=== PATIENT | female | born 1980 | race Caucasian/White ===

== ENCOUNTER 2020-03-27 12:25 | Outpatient (REF) | payer MEDICAID, SELFPAY ==
[2020-03-27 13:29] LABS: MANUAL DIFF FLAG NO
[2020-03-27 13:38] LABS: Basophils Absolute Auto 0.1 X10*3/uL (0.0-0.2); Basophils Percent Auto 0.8 % (0-2); Eosinophils Absolute Auto 0.2 X10*3/uL (0.0-0.4); Hematocrit 42.9 % (37-47); Hemoglobin 13.7 g/dl (12.0-16.0); Imm Gran Abs Auto 0.03 X10*3/uL (0.00-0.03); Imm Gran Pct Auto 0.3 % (0.0-0.4); Lymphocytes Absolute Auto 3.2 X10*3/uL (1.2-4.9); Lymphocytes Percent Auto 31.4 % (20-40); Mean Corpuscular HGB Conc 31.9 g/dl (31.0-35.0); Mean Corpuscular Hemoglobin 26.2 pg (27.0-33.0); Mean Corpuscular Volume 82.2 fL (80-98); Mean Platelet Volume 11.2 fL (9.4-12.3); Monocytes Absolute Auto 0.8 X10*3/uL (0.1-1.2); Monocytes Percent Auto 8.2 % (2-11); Neutrophils Absolute Auto 5.8 X10*3/uL (2.0-8.3); Neutrophils Percent Auto 57.3 % (45-73); Platelet Count 258 X10*3/uL (160-400); Red Blood Count 5.22 X10*6/uL (4.20-5.50); Red Cell Distribution Width 17.5 % (11.0-16.0); White Blood Count 10.1 X10*3/uL (4.8-10.8)
[2020-03-27 13:50] LABS: Anion Gap 11 (12-20); Blood Urea Nitrogen 13 mg/dL (9-16); Calcium 8.4 mg/dL (8.4-10.2); Carbon Dioxide 28 mmol/L (22-29); Chloride 105 mmol/L (96-108); Estimated Glomerular Filt Rate 58; Phosphorus 2.7 mg/dL (2.7-4.5); Potassium 4.3 mmol/l (3.3-5.1); Sodium 140 mmol/L (135-145)
--- NOTE | 2020-03-27 14:05 | CT_ITS ---
EXAMINATION: CT ABDOMEN WITHOUT AND WITH CONTRAST CLINICAL INFORMATION: History of renal malignancy. New onset hematuria. COMPARISON: Previous CT scans December 2018 and October 2013 and abdominal ultrasound September 2019. TECHNIQUE: Contiguous axial thin section helical images of the abdomen were performed before and after the administration of oral contrast and 85 mL of Ultravist 370 intravenous contrast. The data set was reformatted in the coronal and sagittal planes and reviewed on an independent workstation. This CT examination was performed using dose optimization techniques as appropriate, variously including the following: *Automated exposure control *Adjustment of mA and/or kV according to patient size (this includes techniques or standardized protocols for targeted exams where dose is matched to indication/reason for exam; i.e. extremities or head) *Use of iterative reconstruction technique DLP: 918 mGy-cm FINDINGS: LUNG BASES: The lung bases are clear. The heart is slightly enlarged. LIVER, GALLBLADDER, AND BILIARY TREE: The liver is enlarged. The right lobe measures 25 cm in length. The contour of the liver is smooth. No focal liver lesion is seen. The gallbladder is normal. There is no biliary duct dilatation. PANCREAS: Unremarkable. SPLEEN: Unremarkable. ADRENAL GLANDS AND KIDNEYS: The adrenal glands are unremarkable. There is a heterogeneous lesion exophytic to the lower pole of the left kidney. This is irregular in shape. This measures 2.6 x 2.2 cm in transverse and AP dimension and 3.8 cm in longitudinal dimension axial image 36 series 4 and coronal reconstructed image 65. It is heterogeneous in attenuation with some areas of fat. This does not demonstrate enhancement. This is slightly high attenuation to the kidney precontrast Hounsfield units measuring 31. Hounsfield units postcontrast measure 32 without evidence of enhancement. This measured 2.1 x 2.4 cm in AP and transverse dimension axial image 37 series 3, December 2018 exam and 4 cm in length coronal reconstructed image 93, 2018 exam and 2.1 x 2.3 cm in AP and transverse dimension axial image 41 series 2, October 2013 exam and 5 cm in length on earliest exam October 2013. The lesion currently appears to contain less fat than is seen on earliest October 2013 exam. BOWEL LOOPS: Visualized bowel is unremarkable. There is a small peritoneal nodule lateral to the left colon measuring 5 mm axial image 38 series 4 that is stable. The stomach is unremarkable. LYMPH NODES: There are no enlarged lymph nodes. There is no ascites. VASCULAR: Unremarkable. BONES: Unremarkable. IMPRESSION: Slight interval increase in AP and transverse dimension and slight interval decrease in longitudinal dimension in the heterogeneous lesion exophytic to the lower pole of the left kidney going back to 2014. This does not demonstrate evidence of enhancement and contains some fat although the amount of fat appears decreased compared to older exams from 2014. 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 Imaging follow-up in 6-12 months with MRI should be considered. Enlarged liver.
[2020-03-27 14:23] LABS: Glucose Urine UA NEG (NEG); Leukocyte Esterase Urine NEG (NEG); Nitrite Urine NEG (NEG); PH 6.5 (5.0-8.0); Specific Gravity - Urine 1.025 (1.005-1.025); Urine Blood NEG (NEG); Urine Ketones 5 MG/DL (NEG); Urine Protein 3+ MG/DL (NEG-TRACE)
[2020-03-27 14:28] LABS: Appearance Urine HAZY; Color Urine YELLOW
[2020-03-27 14:46] LABS: Mucus Urine 2+ /LPF; Squamous Epithelial Cell Urine 2+ /LPF
[2020-03-27 14:47] LABS: Renal w Reflex-LAB USE ONLY Order Verified
[2020-03-27] MEDS: iohexoL 350 MG/ML 100 ML INFUS..BTL 85 ML IV (14:57)
[2020-03-27 15:45] LABS: Total Protein Urine Random 614 mg/dL (<12)
[2020-03-27 18:25] LABS: Renal w Reflex Lab Use Only Order verified
== END 2020-03-27 12:26 | disposition home or self-care (01) ==
LOC: HO.CT 12:25
PROVIDERS: PCP Nurse Practitioner Family; Visit Provider Internal Medicine Nephrology
DX: N05.9 Unspecified nephritic syndrome with unspecified morphologic changes (principal); I10 Essential (primary) hypertension; R80.9 Proteinuria, unspecified
CPT/HCPCS: 36415; 74170; 80051; 81001; 82310; 82565; 84100; 84156; 84520; 85025; 87086

== ENCOUNTER 2020-03-28 12:12 | Outpatient (REF) | payer MEDICAID, SELFPAY ==
--- NOTE | 2020-03-28 | MM_ITS ---
EXAMINATION: MM DIAGNOSTIC DIGITAL BREAST TOMOSYNTHESIS, BILATERAL CLINICAL INFORMATION: Recall from screening for question of irregular density lower left breast on MLO view and anterior right breast on CC view. Family history breast cancer in mother. Patient BRCA tested negative. COMPARISON: Mammography: 03/13/2020, 01/25/2019 TECHNIQUE: Digital breast tomosynthesis is performed. 2D images are generated from the tomosynthesis. The following views are obtained: Right spot CC, right ML, left spot MLO x2, left ML. FINDINGS: The breasts are heterogeneously dense, which may obscure small masses (ACR BI-RADS breast composition Category c). Additional views left breast show no developing density, persistent asymmetric density, or architectural changes. Additional views right breast show no developing density, or persistent asymmetric density, or architectural changes. Artifactual finding on right at time of recent screening is believed to be to rolled nipple on standard right CC view. Today's CC view obtained with nipple in profile. Results are discussed with the patient at time of visit. IMPRESSION: Additional views bilateral breasts show no suspicious finding. No developing density, asymmetric density, or architectural abnormality. ASSESSMENT: BI-RADS 1: Negative RECOMMENDATION: Routine annual mammography screening. This patient's information was entered into a reminder system with a target due date for their next mammogram.
== END 2020-03-28 12:13 | disposition home or self-care (01) ==
LOC: HO.MAMMO 12:12
PROVIDERS: PCP Nurse Practitioner Family; Visit Provider Nurse Practitioner Family
DX: Z80.3 Family history of malignant neoplasm of breast (principal); R92.2 Inconclusive mammogram
CPT/HCPCS: 78016

== ENCOUNTER → 2020-04-15 08:05 | Outpatient (BNVA) | payer MEDICAID, SELFPAY | PROVIDERS: PCP Nurse Practitioner Family; Visit Provider Surgery | DX: E66.01 Morbid (severe) obesity due to excess calories (principal); Z68.41 Body mass index [BMI] 40.0-44.9, adult; Z71.3 Dietary counseling and surveillance | CPT/HCPCS: 99214 ==

== ENCOUNTER → 2020-05-05 08:02 | Outpatient (BNVA) | payer MEDICAID, SELFPAY | PROVIDERS: PCP Nurse Practitioner Family; Referring Provider Nurse Practitioner Family; Visit Provider Surgery | DX: Z76.89 Persons encountering health services in other specified circumstances (principal) ==

== ENCOUNTER → 2020-05-28 07:46 | Outpatient (BNVA) | payer MEDICAID, SELFPAY | PROVIDERS: PCP Nurse Practitioner Family; Referring Provider Nurse Practitioner Family; Visit Provider Surgery | DX: Z76.89 Persons encountering health services in other specified circumstances (principal) ==

== ENCOUNTER 2020-07-07 16:51 | Outpatient (REF) | payer MEDICAID, SELFPAY | END 2020-07-07 16:52 | disposition home or self-care (01) | LOC: HO.LAB 16:51 | PROVIDERS: Visit Provider Internal Medicine | DX: Z20.822 Contact with and (suspected) exposure to COVID-19 (principal) | CPT/HCPCS: 36415; C9803; U0003 ==

== ENCOUNTER → 2020-07-24 14:44 | Outpatient (BNVA) | payer MEDICAID, SELFPAY | PROVIDERS: PCP Nurse Practitioner Family; Visit Provider Urology ==

== ENCOUNTER 2020-07-29 01:21 | Inpatient (IN) | payer MEDICAID, SELFPAY ==
[2020-07-29] VITALS (14 sets, daily range): BP systolic 117–198; BP diastolic 54–111; PULSE 63–91; RESP 16–24; TEMP 36.2–38; O2SAT 94–98; BMI 43.2
--- NOTE | ~2020-07-29 | CT_ITS ---
EXAMINATION: CT ABDOMEN AND PELVIS WITHOUT CONTRAST CLINICAL INFORMATION: Left flank pain. COMPARISON: 03/27/2020. TECHNIQUE: Contiguous axial thin section helical images of the abdomen and pelvis were performed without oral or IV contrast. The data set was reformatted in the coronal and sagittal planes and reviewed on an independent workstation. DLP: 1028 mGy-cm. FINDINGS: The visualized lung bases are clear. The visualized portions of the heart are unremarkable. The liver is of normal size and attenuation without focal lesions nor intrahepatic biliary ductal dilation. A normal gallbladder is identified. There is no wall thickening or discernible pericholecystic fluid. The spleen, pancreas, adrenal glands are unremarkable. Both kidneys are of normal size and attenuation without hydronephrosis or nephrolithiasis. There is fat stranding noted about the left kidney. Emanating from the lower pole of left kidney, there is an approximately 3.0 cm left lower pole exophytic lesion. There is no abdominal free fluid. There is neither mesenteric nor retroperitoneal lymphadenopathy. Normal unopacified loops of small and large bowel are identified. A normal appendix is identified. There are bilateral adnexal cysts measuring approximately 3.1 cm on the right and 4.8 cm on the left. There is no pelvic free fluid. The urinary bladder is unremarkable. There is neither pelvic nor inguinal lymphadenopathy. Bone windows: Neither sclerotic nor lytic bone lesions are identified. CT/CT abdomen pelvis wo con IMPRESSION: Nonspecific fat stranding identified about the left kidney. The appearance is nonspecific, though could be secondary to a recently passed calculus or inflammation or infection. Bilateral adnexal cysts. Automated exposure control (Care Dose) Adjustment of the mA and/or kv according to patient size (this includes techniques or standardized protocols for targeted exams where dose is matched to indication / reason for exam; i.e. extremities or head).
[2020-07-29 03:18] LABS: Basophils Absolute Auto 0.1 X10*3/uL (0.0-0.2); Basophils Percent Auto 0.2 % (0-2); Eosinophils Percent Auto 0.1 % (0-4); Hematocrit 39.4 % (37-47); Hemoglobin 12.5 g/dl (12.0-16.0); Imm Gran Abs Auto 0.13 X10*3/uL (0.00-0.03); Imm Gran Pct Auto 0.5 % (0.0-0.4); Lymphocytes Absolute Auto 0.7 X10*3/uL (1.2-4.9); MANUAL DIFF FLAG SCAN; Mean Corpuscular HGB Conc 31.7 g/dl (31.0-35.0); Mean Corpuscular Volume 82.1 fL (80-98); Mean Platelet Volume 11.3 fL (9.4-12.3); Monocytes Absolute Auto 1.6 X10*3/uL (0.1-1.2); Monocytes Percent Auto 6.8 % (2-11); Neutrophils Absolute Auto 21.5 X10*3/uL (2.0-8.3); Neutrophils Percent Auto 89.4 % (45-73); Platelet Count 227 X10*3/uL (160-400); Red Cell Distribution Width 17.1 % (11.0-16.0); SCAN SMEAR FLAG 1; White Blood Count 24.1 X10*3/uL (4.8-10.8)
[2020-07-29 03:38] LABS: SLIDE REVIEW VERIFIED
[2020-07-29 03:42] LABS: Alanine Aminotransferase 17 U/L (0-31); Albumin Level 3.7 g/dL (3.5-5.0); Alkaline Phosphatase 81 U/L (39-117); Anion Gap 15 (12-20); Aspartate Amino Transferase 15 U/L (5-31); Bilirubin Total 0.6 mg/dL (0.0-1.0); Blood Urea Nitrogen 13 mg/dL (9-16); Calcium 8.2 mg/dL (8.4-10.2); Carbon Dioxide 23 mmol/L (22-29); Chloride 104 mmol/L (96-108); Estimated Glomerular Filt Rate 53; Glucose Random 104 mg/dL (60-115); Potassium 3.8 mmol/L (3.3-5.1); Sodium 138 mmol/L (135-145); Total Protein 7.3 g/dL (6.5-8.0)
[2020-07-29 04:05] LABS: Glucose Urine UA NEG (NEG); Leukocyte Esterase Urine 2+ (NEG); Nitrite Urine POS (NEG); PH 6.5 (5.0-8.0); UACC Culture Trigger YES; Urine Blood 2+ (NEG); Urine Ketones 5 MG/DL (NEG); Urine Protein 2+ MG/DL (NEG-TRACE)
[2020-07-29 04:06] LABS: Appearance Urine CLEAR; Color Urine DARK YELLOW
[2020-07-29 04:15] LABS: Bacteria Urine 3+ /LPF; Mucus Urine 1+ /LPF; RBC Urine TNTC /HPF (0); Squamous Epithelial Cell Urine TRACE /LPF; WBC Clumps Urine NOTED; WBC Urine TNTC /HPF (0-4)
--- NOTE | 2020-07-29 04:41 | ED_ITS ---
HPI - Abdominal Pain General Chief Complaint: Abdominal Pain Stated Complaint: FLANK PAIN Time Seen by Provider: 07/29/20 04:27 Source: patient Mode of arrival: EMS Limitations: no limitations History of Present Illness HPI narrative: Patient comes to emergency room complaining of left-sided flank pain. Patient states she thinks she is passing kidney stones. Patient has noticed hematuria for the last 2 weeks, flank pain for 4 days. Patient has history of IgA nephropathy, left-sided partial nephrectomy due to renal cell carcinoma, previous kidney stones. Patient also complaining of dysuria. Related Data Home Medications Medication Instructions Recorded Confirmed Black Cohosh Menopause Complex 1 tab PO DAILY 04/11/20 04/11/20 albuterol sulfate [ProAir HFA] 2 puff INHALATION QID PRN 04/11/20 04/11/20 fluticasone propionate [Flonase] 1 spray INTRANASAL BID 04/11/20 04/11/20 fluticasone propionate [Flovent] 2 puff INHALATION BID 04/11/20 04/11/20 hydralazine 50 mg PO BID 04/11/20 04/11/20 hydroxyzine HCl 50 mg PO TID PRN 04/11/20 04/11/20 lisinopril 40 mg PO DAILY 04/11/20 04/11/20 loratadine [Claritin] 10 mg PO DAILY 04/11/20 04/11/20 [id number] 1 cap PO BEDTIME PRN 04/11/20 04/11/20 [Somnicin] metoprolol succinate 150 mg PO DAILY 04/11/20 04/11/20 multivitamin 1 tab PO DAILY 04/11/20 04/11/20 nitroglycerin 0.4 mg SUBLINGUAL Q5M PRN 04/11/20 04/11/20 pantoprazole 40 mg PO DAILY 04/11/20 04/11/20 sertraline 100 mg PO DAILY 04/11/20 04/11/20 trazodone 150 mg PO BEDTIME PRN 04/11/20 04/11/20 verapamil 360 mg PO DAILY 04/11/20 04/11/20 Previous Rx's Medication Instructions Recorded cholecalciferol (vitamin D3) 50 50 mcg PO DAILY #30 cap 05/06/20 mcg (2,000 unit) capsule thiamine HCl (vitamin B1) 50 mg 25 mg PO DAILY #15 tab 05/06/20 tablet Allergies Allergy/AdvReac Type Severity Reaction Status Date / Time pork derived (porcine) Allergy Intermediate HIVES/STOMACH Verified 07/29/20 02: 37 [Pork derived (porcine)] PAIN/THROAT CLOSES ibuprofen [From Motrin] Allergy Mild GI UPSET Verified 07/29/20 02:37 aspirin Allergy Unknown Unknown Verified 07/29/20 02:37 red dye Allergy Unknown Verified 07/29/20 02:37 Motrin Allergy Unknown Unknown Uncoded 07/24/20 14:48 pork Allergy Unknown Unknown Uncoded 07/24/20 14:48 Review of Systems Review of Systems Constitutional : No Weight loss, No Fever, No Chills, No Night Sweats, No Fatigue, No Malaise ENT/Mouth : No Hearing loss, No Ear Pain, No Nasal Congestion, No Sinus Pain, No Hoarseness, No sore throat, No Rhinorrhea, No Swallowing Difficulty Eyes: No Eye Pain, No Swelling, No Redness, No Foreign Body, No Discharge, No Vision Changes Cardiovascular : No Chest Pain, No SOB, No Dyspnea on Exertion, No Orthopnea, No Edema, No Palpitations Respiratory : No Cough, No Sputum, No Wheezing, No Smoke Exposure, No Dyspnea Gastrointestinal : Complaining of Nausea, No Vomiting, No Diarrhea, No Constipation, complaining of suprapubic pain and left-sided flank pain Genitourinary : no irregular bleeding, complaining of dysuria, hesitancy, hematuria Musculoskeletal : No joint pain, No Myalgias, No Joint Swelling Skin : No Skin Lesions, No rash Neuro : No Weakness, No Numbness, No Paresthesias, No Loss of Consciousness, No Dizziness, No Headache Psych : No Anxiety/Panic, No Depression, No SI/HI/AH/VH, No Social Issues, Heme/Lymph: No Bruising, No Bleeding,No Lymphadenopathy Endocrine : No Polyuria, No Polydipsia, No Temperature Intolerance Physical Exam Vital Signs: Vital Signs: Last Vital Signs Temp 99.9 F 07/29/20 03:44 Pulse 71 07/29/20 06:11 Resp 18 07/29/20 06:11 BP 117/54 L 07/29/20 06:11 Pulse Ox 95 07/29/20 06:11 Body Mass Index 43.2 Appearance: Alert. Oriented X3. No acute distress. Eyes: Pupils equal, round and reactive to light. ENT: Pharynx normal. Neck: Normal inspection. Neck supple. No lymph nodes noted. No crepitus CVS: Normal heart rate and rhythm. Pulses normal. Normal S1 and S2 Respiratory: No respiratory distress. Breath sounds normal. No Wheezing. No rales Abdomen: Soft , tender to palpation over the suprapubic area, positive CVA tenderness on the left, No rigidity. No distention. good BS x4 Skin: Skin warm and dry. Normal skin color. Normal skin turgor. Extremities: No lower extremity edema. No lower extremity edema. No Lacerations. No Rash Neuro: Oriented X 3. No motor deficit. No sensory deficit. Moving all exter mities. No slurred speech. Course Course Course Narrative: I discussed the labs and CT scan with the patient, it is possible that she passed a kidney stone. However, it is likely that all her symptoms are likely secondary to pyelonephritis. Sepsis is not suspected at this time. Patient received fluids and IV antibiotics. I discussed the above- mentioned with the patient and the hospitalist Dr. Bishop, patient being admitted for pyelonephritis. MDM - Abdominal Pain Lab Data Result diagrams: 07/29/20 02:57 07/29/20 02:57 Labs: Lab Results 07/29/20 07/29/20 07/29/20 Range/Units 02:57 02:57 02:57 WBC 24.1 H (4.8-10.8) X10*3/uL RBC 4.80 (4.20-5.50) X10*6/uL Hgb 12.5 (12.0-16.0) g/dl Hct 39.4 (37-47) % MCV 82.1 (80-98) fL MCH 26.0 L (27.0-33.0) pg MCHC 31.7 (31.0-35.0) g/dl RDW 17.1 H (11.0-16.0) % Plt Count 227 (160-400) X10*3/uL MPV 11.3 (9.4-12.3) fL Immature Gran % (Auto) 0.5 H (0.0-0.4) % Neut % (Auto) 89.4 H (45-73) % Lymph % (Auto) 3.0 L (20-40) % [place] % (Auto) 6.8 (2-11) % Eos % (Auto) 0.1 (0-4) % Baso % (Auto) 0.2 (0-2) % Lymph # (Auto) 0.7 L (1.2-4.9) X10*3/uL [place] # (Auto) 1.6 H (0.1-1.2) X10*3/uL Eos # (Auto) 0.0 (0.0-0.4) X10*3/uL Baso # (Auto) 0.1 (0.0-0.2) X10*3/uL Abs Immat Gran (auto) 0.13 H (0.00-0.03) X10*3/uL Absolute Neuts (auto) 21.5 H (2.0-8.3) X10*3/uL Absolute Nucleated RBC 0.000 (0.0-0.012) X10*3/uL Nucleated RBC % (auto) 0.0 (0.0-0.2) /100WBC Smear Tech's Comments VERIFIED Hold Blue Top SEE NOTE Sodium 138 (135-145) mmol/L Potassium 3.8 (3.3-5.1) mmol/L Chloride 104 (96-108) mmol/L Carbon Dioxide 23 (22-29) mmol/L Anion Gap 15 (12-20) BUN 13 (9-16) mg/dL Creatinine 1.13 (0.5-1.4) mg/dL Estim Creat Clear Calc 85.0 Estimated GFR 53 Random Glucose 104 (60-115) mg/dL Lactic Acid (0.5-2.0) mmol/L Calcium 8.2 L (8.4-10.2) mg/dL Total Bilirubin 0.6 (0.0-1.0) mg/dL AST 15 (5-31) U/L ALT 17 (0-31) U/L Alkaline Phosphatase 81 (39-117) U/L Total Protein 7.3 (6.5-8.0) g/dL Albumin 3.7 (3.5-5.0) g/dL Urine Color Urine Appearance Urine pH (5.0-8.0) Ur Specific [place] (1.005-1.025) Urine Protein (NEG-TRACE) MG/DL Urine Glucose (UA) (NEG) MG/DL Urine Ketones (NEG) MG/DL Urine Blood (NEG) Urine Nitrite (NEG) Ur Leukocyte Esterase (NEG) Urine RBC (0) /HPF Urine WBC (0-4) /HPF Urine WBC Clumps Ur Squamous Epith Cells /LPF Urine Bacteria /LPF Urine Mucus /LPF 07/29/20 07/29/20 Range/Units 03:57 05:01 WBC (4.8-10.8) X10*3/uL RBC (4.20-5.50) X10*6/uL Hgb (12.0-16.0) g/dl Hct (37-47) % MCV (80-98) fL MCH (27.0-33.0) pg MCHC (31.0-35.0) g/dl RDW (11.0-16.0) % Plt Count (160-400) X10*3/uL MPV (9.4-12.3) fL Immature Gran % (Auto) (0.0-0.4) % Neut % (Auto) (45-73) % Lymph % (Auto) (20-40) % [place] % (Auto) (2-11) % Eos % (Auto) (0-4) % Baso % (Auto) (0-2) % Lymph # (Auto) (1.2-4.9) X10*3/uL [place] # (Auto) (0.1-1.2) X10*3/uL Eos # (Auto) (0.0-0.4) X10*3/uL Baso # (Auto) (0.0-0.2) X10*3/uL Abs Immat Gran (auto) (0.00-0.03) X10*3/uL Absolute Neuts (auto) (2.0-8.3) X10*3/uL Absolute Nucleated RBC (0.0-0.012) X10*3/uL Nucleated RBC % (auto) (0.0-0.2) /100WBC Smear Tech's Comments Hold Blue Top Sodium (135-145) mmol/L Potassium (3.3-5.1) mmol/L Chloride (96-108) mmol/L Carbon Dioxide (22-29) mmol/L Anion Gap (12-20) BUN (9-16) mg/dL Creatinine (0.5-1.4) mg/dL Estim Creat Clear Calc Estimated GFR Random Glucose (60-115) mg/dL Lactic Acid 1.4 (0.5-2.0) mmol/L Calcium (8.4-10.2) mg/dL Total Bilirubin (0.0-1.0) mg/dL AST (5-31) U/L ALT (0-31) U/L Alkaline Phosphatase (39-117) U/L Total Protein (6.5-8.0) g/dL Albumin (3.5-5.0) g/dL Urine Color DARK YELLOW Urine Appearance CLEAR Urine pH 6.5 (5.0-8.0) Ur Specific [place] 1.020 (1.005-1.025) Urine Protein 2+ H (NEG-TRACE) MG/DL Urine Glucose (UA) NEG (NEG) MG/DL Urine Ketones 5 (NEG) MG/DL Urine Blood 2+ H (NEG) Urine Nitrite POS H (NEG) Ur Leukocyte Esterase 2+ H (NEG) Urine RBC TNTC H (0) /HPF Urine WBC TNTC H (0-4) /HPF Urine WBC Clumps NOTED Ur Squamous Epith Cells TRACE /LPF Urine Bacteria 3+ /LPF Urine Mucus 1+ /LPF Imaging Data CT scan - abdomen: Radiologist's impression: FINDINGS: The visualized lung bases are clear. The visualized portions of the heart are unremarkable. The liver is of normal size and attenuation without focal lesions nor intrahepatic biliary ductal dilation. A normal gallbladder is identified. There is no wall thickening or discernible pericholecystic fluid. The spleen, pancreas, adrenal glands are unremarkable. Both kidneys are of normal size and attenuation without hydronephrosis or nephrolithiasis. There is fat stranding noted about the left kidney. Emanating from the lower pole of left kidney, there is an approximately 3.0 cm left lower pole exophytic lesion. There is no abdominal free fluid. There is neither mesenteric nor retroperitoneal lymphadenopathy. Normal unopacified loops of small and large bowel are identified. A normal appendix is identified. There are bilateral adnexal cysts measuring approximately 3.1 cm on the right and 4.8 cm on the left. There is no pelvic free fluid. The urinary bladder is unremarkable. There is neither pelvic nor inguinal lymphadenopathy. Bone windows: Neither sclerotic nor lytic bone lesions are identified. CT/CT abdomen pelvis wo con IMPRESSION: Nonspecific fat stranding identified about the left kidney. The appearance is nonspecific, though could be secondary to a recently passed calculus or inflammation or infection. Bilateral adnexal cysts. Discharge Plan Discharge Clinical Impression: Pyelonephritis Patient Disposition: Admitted As Inpatient [facility] Past Medical History Medical History Asthma Cancer of left kidney Hypertension IgA nephropathy IgA nephropathy Migraine headache Myocardial infarction Surgical History H/O partial nephrectomy H/O right knee surgery H/O: hysterectomy Morbid obesity Family History Family History (Updated 04/11/20 @ 09:13 by Perla Emery RN) Mother IgA nephropathy Breast cancer Cancer of kidney CVA (cerebral vascular accident) Maternal Uncle Tongue cancer Social History Social History Alcohol intake: never Smoking Status: Current some day smoker Use of substances other than those prescribed or required for medical reasons: No Advance Directives: No Advance Directives Information Provided: No
[2020-07-29] MEDS: cefTRIAXone sodium 1 GM in 0.9 % Sodium Chloride 50 ML IV (05:01)
[2020-07-29] MEDS: ondansetron HCL 4 MG/2 ML VIAL IVPUSH (05:03)
[2020-07-29] MEDS: Morphine Sulfate 2 MG/ML CARTRIDGE 4 MG IVPUSH (05:03)
[2020-07-29 05:25] LABS: Lactic Acid 1.4 mmol/L (0.5-2.0)
[2020-07-29] MEDS: Acetaminophen 325 MG TABLET 650 MG PO (06:13)
[2020-07-29] MEDS: 0.9 % Sodium Chloride 1,000 ML 999 ML IVCONT ×2 (06:52→08:02)
--- NOTE | 2020-07-29 11:30 | PM.IMHP ---
History of Present Illness Date of Service: 07/29/20 Chief Complaint: Abdominal pain 40-year-old female who came to the hospital for 2-3 days history of hematuria and flank pain left-sided. She also has history of IgA nephropathy and partial left-sided nephrectomy due to question of renal cell carcinoma. Patient says that since she came here she had some fever and flank pain slowly seems to be improving Denies any nausea vomiting or cough or phlegm or shortness of breath or chest pain. Patient said that she has left renal lesion which she is getting workup out patiently with Dr. valderrama. In the ED patient was found to have fever 100.4, tachycardia, has white count so qualified for sepsis-also UA was abnormal so thought to be patient has pyelonephritis and was given IV ceftriaxone. Patient thinks there is a question of renal stone because she has history? Pmx: Asthma Cancer of left kidney Hypertension IgA nephropathy IgA nephropathy Migraine headache Myocardial infarction Review of Systems Review of Systems: Denies any chest pain or shortness of breath or weakness or numbness or nausea vomiting or diarrhea. Abdominal pain is improving No weakness or numbness Had fever Also has hematuria No muscle pain No renal urea or otorrhea [facility] Medical History Asthma Cancer of left kidney Hypertension IgA nephropathy IgA nephropathy Migraine headache Myocardial infarction Family History Mother IgA nephropathy Breast cancer Cancer of kidney CVA (cerebral vascular accident) Maternal Uncle Tongue cancer Surgical History H/O partial nephrectomy H/O right knee surgery H/O: hysterectomy Morbid obesity Social History Household Members: Family Housing: House Alcohol intake: never Smoking Status: Current some day smoker Packs Per Day: 1 Cigarettes Per Day: 20.0 service: No Current occupational status: employed Meds Allergies Allergy/AdvReac Type Severity Reaction Status Date / Time pork derived (porcine) Allergy Intermediate HIVES/STOMACH Verified 07/29/20 02:37 [Pork derived (porcine)] PAIN/THROAT CLOSES ibuprofen [From Motrin] Allergy Mild GI UPSET Verified 07/29/20 02:37 aspirin Allergy Unknown Unknown Verified 07/29/20 02:37 red dye Allergy Unknown Verified 07/29/20 02:37 Motrin Allergy Unknown Unknown Uncoded 07/24/20 14:48 pork Allergy Unknown Unknown Uncoded 07/24/20 14:48 Home Medications Medication Instructions Recorded Confirmed Type albuterol sulfate [ProAir HFA] 2 puff INHALATION QID PRN 04/11/20 07/29/20 History fluticasone propionate 2 puff INHALATION BID 04/11/20 07/29/20 History fluticasone propionate 2 spray INTRANASAL DAILY 04/11/20 07/29/20 History hydroxyzine HCl 50 mg PO TID PRN 04/11/20 07/29/20 History lisinopril 40 mg PO DAILY 04/11/20 07/29/20 History loratadine [Claritin] 10 mg PO DAILY 04/11/20 07/29/20 History multivitamin 1 tab PO DAILY 04/11/20 07/29/20 History nitroglycerin 0.4 mg SUBLINGUAL Q5M PRN MDD 3 04/11/20 07/29/20 History pantoprazole 40 mg PO DAILY 04/11/20 07/29/20 History sertraline 100 mg PO DAILY 04/11/20 07/29/20 History hydralazine 50 mg PO QPM 07/29/20 07/29/20 History hydralazine 100 mg PO DAILY 07/29/20 07/29/20 History melatonin 12 mg PO BEDTIME 07/29/20 07/29/20 History metoprolol succinate 150 mg PO DAILY 07/29/20 07/29/20 History trazodone 200 mg PO BEDTIME 07/29/20 07/29/20 History verapamil 180 mg PO BID 07/29/20 07/29/20 History Physical Exam Vital Signs and Narrative: Vital Signs: Last Vital Signs Temp 98.9 F 07/29/20 08:00 Pulse 64 07/29/20 08:00 Resp 16 07/29/20 08:00 BP 120/64 07/29/20 08:00 Pulse Ox 95 07/29/20 08:00 Body Mass Index 43.2 Physical exam: Constitutional: Not in acute distress, pleasant. HEENT: Eyes: Anicteric, no discharge Neck supple Cvs: rrr, [id number] , no murmur res: clear to auscultation ,no rhonchii or wheezing abd: no rebound or guarding ,nt, bs present. ext pulses present , no cyanosis neuro: axo3 , nonfocal. Results Labs CBC and Chem 7: 08/01/20 05:52 08/01/20 05:52 Labs: Laboratory Results - last 24 hr 07/29/20 07/29/20 07/29/20 02:57 02:57 02:57 MCV 82.1 MCH 26.0 L MCHC 31.7 RDW 17.1 H Plt Count 227 MPV 11.3 Immature Gran % (Auto) 0.5 H Neut % (Auto) 89.4 H Lymph % (Auto) 3.0 L [place] % (Auto) 6.8 Eos % (Auto) 0.1 Baso % (Auto) 0.2 Lymph # (Auto) 0.7 L [place] # (Auto) 1.6 H Eos # (Auto) 0.0 Baso # (Auto) 0.1 Abs Immat Gran (auto) 0.13 H Absolute Neuts (auto) 21.5 H Absolute Nucleated RBC 0.000 Nucleated RBC % (auto) 0.0 Smear Tech's Comments VERIFIED Hold Blue Top SEE NOTE Anion Gap 15 Estim Creat Clear Calc 85.0 Estimated GFR 53 Random Glucose 104 Lactic Acid Calcium 8.2 L Total Bilirubin 0.6 AST 15 ALT 17 Alkaline Phosphatase 81 Total Protein 7.3 Albumin 3.7 Urine Color Urine Appearance Urine pH Ur Specific [place] Urine Protein Urine Glucose (UA) Urine Ketones Urine Blood Urine Nitrite Ur Leukocyte Esterase Urine RBC Urine WBC Urine WBC Clumps Ur Squamous Epith Cells Urine Bacteria Urine Mucus 07/29/20 07/29/20 03:57 05:01 MCV MCH MCHC RDW Plt Count MPV Immature Gran % (Auto) Neut % (Auto) Lymph % (Auto) [place] % (Auto) Eos % (Auto) Baso % (Auto) Lymph # (Auto) [place] # (Auto) Eos # (Auto) Baso # (Auto) Abs Immat Gran (auto) Absolute Neuts (auto) Absolute Nucleated RBC Nucleated RBC % (auto) Smear Tech's Comments Hold Blue Top Anion Gap Estim Creat Clear Calc Estimated GFR Random Glucose Lactic Acid 1.4 Calcium Total Bilirubin AST ALT Alkaline Phosphatase Total Protein Albumin Urine Color DARK YELLOW Urine Appearance CLEAR Urine pH 6.5 Ur Specific [place] 1.020 Urine Protein 2+ H Urine Glucose (UA) NEG Urine Ketones 5 Urine Blood 2+ H Urine Nitrite POS H Ur Leukocyte Esterase 2+ H Urine RBC TNTC H Urine WBC TNTC H Urine WBC Clumps NOTED Ur Squamous Epith Cells TRACE Urine Bacteria 3+ Urine Mucus 1+ Imaging Radiologist's Impressions: Impressions Abdomen/Pelvis CT 07/29/20 04:38 IMPRESSION: Nonspecific fat stranding identified about the left kidney. The appearance is nonspecific, though could be secondary to a recently passed calculus or inflammation or infection. Bilateral adnexal cysts. Automated exposure control (Care Dose) Adjustment of the mA and/or kv according to patient size (this includes techniques or standardized protocols for targeted exams where dose is matched to indication / reason for exam; i.e. extremities or head). Assessment and Plan (1) Pyelonephritis: Status: Acute 1. Probable sepsis due to pyelonephritis versus renal colic: Patient also has left renal lesion which she is aware about and follows up with Dr. valderrama out patiently Started on IV ceftriaxone Urine and blood culture pending Urology evaluation 2.HTN:Will continue lisinopril,metoprolol, hydralzine , verapamil 3.: Asthma: Will continue home asthma medications, flovent , alsbuterol prn 4. Anxiety/panic: sertraline ,trazodone DVT prophylaxis was heparin or Lovenox can be cannot be used because pork products and patient is allergic to pork she said a DIS anaphylaxis
--- NOTE | 2020-07-29 11:36 | PC.NURSE ---
resting queitly in bed, c/o increasing left flank pain. grimace with deep breath. this rn to request pain meds from MD. pt states morphine was effective. on 2l NC at baseline. skin pwd. Awaits bed on floor.
--- NOTE | 2020-07-29 11:50 | PC.NURSE ---
marcialer text to Dr Arana for consult.
[2020-07-29] MEDS: Morphine Sulfate 2 MG/ML CARTRIDGE 1 MG IVPUSH ×2 (13:28→18:12)
--- NOTE | 2020-07-29 13:51 | PC.NURSE ---
feels better after morphine. trying to sleep. awaits bed upstairs
[2020-07-29 15:10] LABS: COVID-19 Test Negative (Negative)
--- NOTE | 2020-07-29 15:16 | PC.NURSE ---
rn to rn with Prerna
--- NOTE | 2020-07-29 15:48 | MHC.CM.PN ---
CM ATTEMPTED TO MEET WITH PT IN ED HOWEVER PT HAD TRANSFERRED TO [place] [id number], HCP FOUND IN OLD RECORD AND UPLOADED TO [facility], REGISTRATION TO UPLOAD TO [facility].
--- NOTE | 2020-07-29 17:03 | P.CNUR_ITS ---
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 This is under surveillance Appears she may have been admitted for question of pyelonephritis Certainly has UTI and elevated white count Is being managed with ceftriaxone Sensitivities pending Review of Systems Review of Systems: Yes all other systems are reviewed and are negative PMFSH Past Medical History Medical History Asthma Cancer of left kidney Hypertension IgA nephropathy IgA nephropathy Migraine headache Myocardial infarction Family History Family History Mother IgA nephropathy Breast cancer Cancer of kidney CVA (cerebral vascular accident) Maternal Uncle Tongue cancer Surgical History Surgical History H/O partial nephrectomy H/O right knee surgery H/O: hysterectomy Morbid obesity Social History Social History Alcohol intake: never Smoking Status: Current some day smoker Use of substances other than those prescribed or required for medical reasons: No Advance Directives: No Advance Directives Information Provided: No Meds Allergies Allergy/AdvReac Type Severity Reaction Status Date / Time pork derived (porcine) Allergy Intermediate HIVES/STOMACH Verified 07/29/20 02:37 [Pork derived (porcine)] PAIN/THROAT CLOSES ibuprofen [From Motrin] Allergy Mild GI UPSET Verified 07/29/20 02:37 aspirin Allergy Unknown Unknown Verified 07/29/20 02:37 red dye Allergy Unknown Verified 07/29/20 02:37 Motrin Allergy Unknown Unknown Uncoded 07/24/20 14:48 pork Allergy Unknown Unknown Uncoded 07/24/20 14:48 Active Medications: Current Medications Generic Name Dose Route Start Last Admin Trade Name Freq PRN Reason Stop Dose Admin Acetaminophen 650 mg 07/29/20 16:53 Acetaminophen 325 Mg Tablet PO Q6H PRN Pain, Mild (Pain Scale 1-3) Albuterol Sulfate 2 puff 07/29/20 16:01 Albuterol Sulfate 90 Mcg 8 Gm Inhaler INHALE QID PRN Shortness Of Breath Or Wheezing Fluticasone Propionate 2 spray 07/29/20 16:15 Fluticasone Propionate Nasal 16 Gm [place] NOSTRIL-B DAILY [facility] Fluticasone Propionate 2 puff 07/29/20 20:00 Fluticasone Propionate 100 Mcg Blst.W.Dev INHALE RBID [facility] Hydralazine HCl 50 mg 07/29/20 21:00 Hydralazine Hcl 50 Mg Tablet PO BEDTIME [facility] Protocol Hydralazine HCl 100 mg 07/29/20 16:15 Hydralazine Hcl 25 Mg Tablet PO DAILY [facility] Protocol Hydroxyzine HCl 50 mg 07/29/20 16:01 Hydroxyzine Hcl 50 Mg Tablet PO TID PRN Anxiety Ceftriaxone Sodium 1 gm/ 50 mls @ 100 mls/hr 07/30/20 09:00 Sodium Chloride IV DAILY [facility] Lisinopril 40 mg 07/29/20 17:00 Lisinopril 40 Mg Tablet PO DAILY [facility] Protocol Loratadine 10 mg 07/29/20 16:15 Loratadine 10 Mg Tablet PO DAILY [facility] Melatonin 12 mg 07/29/20 21:00 Melatonin 3 Mg Tablet PO BEDTIME [facility] Metoprolol Succinate 150 mg 07/29/20 16:15 Metoprolol Succinate Er 50 Mg Tab.Er.24h PO DAILY [facility] Protocol Morphine Sulfate 1 mg 07/29/20 11:53 07/29/20 13:28 Morphine Sulfate 2 Mg/Ml Cartridge IVPUSH 1 mg Q4H PRN Administration Pain, Mild (Pain Scale 1-3) Multivitamins/Vitamin C 1 tab 07/29/20 16:15 Multivitamin Tablet PO DAILY [facility] Nitroglycerin 0.4 mg 07/29/20 16:01 Nitroglycerin 0.4 Mg Tab.Subl SUBLINGUAL Q5M PRN Chest Pain Omeprazole 20 mg 07/30/20 06:30 Omeprazole 20 Mg Capsule.Dr PO DAILY@0630 [facility] Sertraline HCl 100 mg 07/29/20 16:15 Sertraline Hcl 50 Mg Tablet PO DAILY [facility] Sodium Chloride 3 ml 07/29/20 16:00 0.9 % Sodium Chloride Flush 3 Ml Syringe IVFLUSH QSHIFT [facility] Tamsulosin HCl 0.4 mg 07/30/20 09:00 Tamsulosin Hcl 0.4 Mg Capsule PO DAILY [facility] Trazodone HCl 200 mg 07/29/20 21:00 Trazodone Hcl 100 Mg Tablet PO BEDTIME [facility] Verapamil HCl 180 mg 07/29/20 21:00 Verapamil Hcl Sr 180 Mg Tablet.Er PO BID [facility] Protocol Vitamin D 50 mcg 07/30/20 09:00 Cholecalciferol (Vitamin D3) 25 Mcg Tablet PO DAILY [facility] Home Medications Medication Instructions Recorded Confirmed Last Taken Type albuterol sulfate [ProAir HFA] 2 puff INHALATION QID PRN 04/11/20 07/29/20 Unk nown History fluticasone propionate [Flonase] 2 spray INTRANASAL DAILY 04/11/20 07/29/20 07/28/20 History fluticasone propionate [Flovent] 2 puff INHALATION BID 04/11/20 07/29/20 07/28/20 History hydroxyzine HCl 50 mg PO TID PRN 04/11/20 07/29/20 Unknown History lisinopril 40 mg PO DAILY 04/11/20 07/29/20 07/28/20 History loratadine [Claritin] 10 mg PO DAILY 04/11/20 07/29/20 07/28/20 History multivitamin 1 tab PO DAILY 04/11/20 07/29/20 07/28/20 History nitroglycerin 0.4 mg SUBLINGUAL Q5M PRN MDD 3 04/11/20 07/29/20 Unknown History pantoprazole 40 mg PO DAILY 04/11/20 07/29/20 07/28/20 History sertraline 100 mg PO DAILY 04/11/20 07/29/20 07/28/20 History hydralazine 50 mg PO QPM 07/29/20 07/29/20 07/28/20 History hydralazine 100 mg PO DAILY 07/29/20 07/29/20 07/28/20 History melatonin 12 mg PO BEDTIME 07/29/20 07/29/20 07/28/20 History metoprolol succinate 150 mg PO DAILY 07/29/20 07/29/20 07/28/20 History trazodone 200 mg PO BEDTIME 07/29/20 07/29/20 07/28/20 History verapamil 180 mg PO BID 07/29/20 07/29/20 07/28/20 History Physical Exam Vital Signs: Vital Signs: Last Vital Signs Temp 99.2 F 07/29/20 15:46 Pulse 87 07/29/20 15:46 Resp 20 07/29/20 15:46 BP 198/111 H 07/29/20 15:46 Pulse Ox 98 07/29/20 15:46 Body Mass Index 43.2 Const: General: cooperative, healthy appearing, comfortable and no acute distress Nutritional Appearance: average body habitus Orientation/consciousness: oriented to person, oriented to place and oriented to time Eyes: General: appearance normal, both eyes and all related structures Chest: Chest palpation & inspection: normal inspection of the chest Resp: Effort & Inspection: normal respiratory effort Cardio: Rate: regular rate GI: Inspection: Yes normal to inspection Skin: Hair: normal Neuro: General: oriented to person, oriented to place and oriented to time Extrem: General: Yes normal to inspection Results Labs Result diagrams: 07/29/20 02:57 07/29/20 02:57 Labs: Abnormal lab results 07/29/20 07/29/20 07/29/20 Range/Units 02:57 02:57 03:57 WBC 24.1 H (4.8-10.8) X10*3/uL MCH 26.0 L (27.0-33.0) pg RDW 17.1 H (11.0-16.0) % Immature Gran % (Auto) 0.5 H (0.0-0.4) % Neut % (Auto) 89.4 H (45-73) % Lymph % (Auto) 3.0 L (20-40) % Lymph # (Auto) 0.7 L (1.2-4.9) X10*3/uL [place] # (Auto) 1.6 H (0.1-1.2) X10*3/uL Abs Immat Gran (auto) 0.13 H (0.00-0.03) X10*3/uL Absolute Neuts (auto) 21.5 H (2.0-8.3) X10*3/uL Calcium 8.2 L (8.4-10.2) mg/dL Urine Protein 2+ H (NEG-TRACE) MG/DL Urine Blood 2+ H (NEG) Urine Nitrite POS H (NEG) Ur Leukocyte Esterase 2+ H (NEG) Urine RBC TNTC H (0) /HPF Urine WBC TNTC H (0-4) /HPF Short CBC 07/29/20 Range/Units 02:57 WBC 24.1 H (4.8-10.8) X10*3/uL Hgb 12.5 (12.0-16.0) g/dl Hct 39.4 (37-47) % Plt Count 227 (160-400) X10*3/uL BMP 07/29/20 02:57 Sodium 138 Potassium 3.8 Chloride 104 Carbon Dioxide 23 BUN 13 Creatinine 1.13 Calcium 8.2 L Liver Function 07/29/20 Range/Units 02:57 Total Bilirubin 0.6 (0.0-1.0) mg/dL AST 15 (5-31) U/L ALT 17 (0-31) U/L Alkaline Phosphatase 81 (39-117) U/L Albumin 3.7 (3.5-5.0) g/dL Urine 07/29/20 Range/Units 03:57 Urine Color DARK YELLOW Urine Appearance CLEAR Urine pH 6.5 (5.0-8.0) Ur Specific [place] 1.020 (1.005-1.025) Urine Protein 2+ H (NEG-TRACE) MG/DL Urine Glucose (UA) NEG (NEG) MG/DL All other labs normal. Assessment and Plan (1) Pyelonephritis: Problem details: Pyelonephritis Status: Acute Broad-spectrum antibiotics until culture specificity determined
[2020-07-29] MEDS: Multivitamin TABLET 1 TAB PO (17:09)
[2020-07-29] MEDS: Sertraline HCL 50 MG TABLET 100 MG PO (17:09)
[2020-07-29] MEDS: hydrALAZINE HCl 25 MG TABLET 100 MG PO (17:09)
[2020-07-29] MEDS: Loratadine 10 MG TABLET PO (17:09)
[2020-07-29] MEDS: Metoprolol Succinate ER 50 MG TAB.ER.24H 150 MG PO (17:09)
[2020-07-29] MEDS: 0.9 % Sodium Chloride Flush 3 ML SYRINGE IVFLUSH (17:11)
[2020-07-29] MEDS: Fluticasone Propionate 100 MCG BLST.W.DEV 2 PUFF INHALE (19:43)
[2020-07-29] MEDS: traZODone HCL 100 MG TABLET 200 MG PO (20:48)
[2020-07-29] MEDS: Melatonin 3 MG TABLET 12 MG PO (20:49)
[2020-07-30] VITALS (11 sets, daily range): BP systolic 110–139; BP diastolic 46–76; PULSE 63–75; RESP 16–20; TEMP 36.6–37.9; O2SAT 90–94; BMI 43.2
[2020-07-30] MEDS: Acetaminophen 325 MG TABLET 650 MG PO ×3 (02:00→17:10)
[2020-07-30] MEDS: 0.9 % Sodium Chloride Flush 3 ML SYRINGE IVFLUSH ×3 (02:05→17:10)
[2020-07-30] MEDS: Omeprazole 20 MG CAPSULE.DR PO (05:55)
[2020-07-30 06:24] LABS: Basophils Absolute Auto 0.1 X10*3/uL (0.0-0.2); Basophils Percent Auto 0.3 % (0-2); Eosinophils Absolute Auto 0.1 X10*3/uL (0.0-0.4); Eosinophils Percent Auto 0.4 % (0-4); Hematocrit 35.1 % (37-47); Hemoglobin 10.8 g/dl (12.0-16.0); Imm Gran Pct Auto 0.8 % (0.0-0.4); Lymphocytes Percent Auto 8.5 % (20-40); MANUAL DIFF FLAG SCAN; Mean Corpuscular HGB Conc 30.8 g/dl (31.0-35.0); Mean Corpuscular Hemoglobin 25.9 pg (27.0-33.0); Mean Corpuscular Volume 84.2 fL (80-98); Mean Platelet Volume 11.1 fL (9.4-12.3); Monocytes Absolute Auto 3.2 X10*3/uL (0.1-1.2); Monocytes Percent Auto 13.2 % (2-11); Neutrophils Absolute Auto 18.4 X10*3/uL (2.0-8.3); Neutrophils Percent Auto 76.8 % (45-73); Platelet Count 177 X10*3/uL (160-400); Red Blood Count 4.17 X10*6/uL (4.20-5.50); Red Cell Distribution Width 17.4 % (11.0-16.0); SCAN SMEAR FLAG 1
[2020-07-30 06:52] LABS: Anion Gap 11 (12-20); Blood Urea Nitrogen 22 mg/dL (9-16); Calcium 7.5 mg/dL (8.4-10.2); Carbon Dioxide 27 mmol/L (22-29); Chloride 103 mmol/L (96-108); Estimated Glomerular Filt Rate 29; Glucose Random 91 mg/dL (60-115); Potassium 4.1 mmol/L (3.3-5.1); Sodium 137 mmol/L (135-145)
[2020-07-30 07:39] LABS: SLIDE REVIEW VERIFIED
[2020-07-30] MEDS: Fluticasone Propionate 100 MCG BLST.W.DEV 2 PUFF INHALE ×2 (07:45→20:41)
[2020-07-30] MEDS: Sertraline HCL 50 MG TABLET 100 MG PO (08:31)
[2020-07-30] MEDS: VerapamiL HCL SR 180 MG TABLET.ER PO ×2 (08:32→20:17)
[2020-07-30] MEDS: hydrALAZINE HCl 25 MG TABLET 100 MG PO (08:32)
[2020-07-30] MEDS: Cholecalciferol (Vitamin D3) 25 MCG TABLET 50 MCG PO (08:32)
[2020-07-30] MEDS: Metoprolol Succinate ER 50 MG TAB.ER.24H 150 MG PO (08:32)
[2020-07-30] MEDS: Loratadine 10 MG TABLET PO (08:32)
[2020-07-30] MEDS: Tamsulosin HCL 0.4 MG CAPSULE PO (08:32)
[2020-07-30] MEDS: Multivitamin TABLET 1 TAB PO (08:33)
[2020-07-30] MEDS: cefTRIAXone sodium 1 GM in 0.9 % Sodium Chloride 50 ML IV (08:42)
--- NOTE | 2020-07-30 09:52 | HO.PM.IMPN ---
Subjective Subjective Date of Service: 07/30/20 Interval History: seen and examined this Am rpeorts feeling tired, but much better than yesterday still some flank pain tolerated diet, but some nausea ROS General - no fevers or chills Cardiovascular - no chest pain Respiratory - no shortness of breath or cough Abdominal- no abdominal pain, +nausea, vomiting, diarrhea - flank pain, improved Physical Exam Vital Signs: Vital Signs: Last Vital Signs Temp 98.1 F 07/30/20 08:00 Pulse 75 07/30/20 08:00 Resp 18 07/30/20 08:00 BP 130/60 07/30/20 08:00 Pulse Ox 90 L 07/30/20 08:00 Body Mass Index 43.2 Const: Other: General - no acute distress, appears comfortable Cardiovascular - regular rate and rhythm, S1-S2 Lungs - normal respiratory effort, clear to auscultation bilaterally, no wheezing Abdomen - soft, nontender, no rebound or guarding; mild cva tenderness L Extremities - no edema bilaterally Neuro - awake and alert, no focal deficits Objective Data Current Medications Generic Name Dose Route Start Last Admin Trade Name Freq PRN Reason Stop Dose Admin Acetaminophen 650 mg 07/29/20 16:53 07/30/20 08:31 Acetaminophen 325 Mg Tablet PO 650 mg Q6H PRN Administration Pain, Mild (Pain Scale 1-3) Albuterol Sulfate 2 puff 07/29/20 16:01 Albuterol Sulfate 90 Mcg 8 Gm Inhaler INHALE QID PRN Shortness Of Breath Or Wheezing Fluticasone Propionate 2 spray 07/29/20 16:15 07/30/20 08:33 Fluticasone Propionate Nasal 16 Gm [place] NOSTRIL-B Not Given DAILY [facility] Fluticasone Propionate 2 puff 07/29/20 20:00 07/30/20 07:45 Fluticasone Propionate 100 Mcg Blst.W.Dev INHALE 2 puff RBID [facility] Administration Hydralazine HCl 50 mg 07/29/20 21:00 07/29/20 20:51 Hydralazine Hcl 50 Mg Tablet PO Not Given BEDTIME [facility] Protocol Hydralazine HCl 100 mg 07/29/20 16:15 07/30/20 08:32 Hydralazine Hcl 25 Mg Tablet PO 100 mg DAILY [facility] Administration Protocol Hydroxyzine HCl 50 mg 07/29/20 16:01 Hydroxyzine Hcl 50 Mg Tablet PO TID PRN Anxiety Ceftriaxone Sodium 1 gm/ 50 mls @ 100 mls/hr 07/30/20 09:00 07/30/20 08:42 Sodium Chloride IV 100 mls/hr DAILY [facility] Administration Lactated Ringer's 1,000 mls @ 100 mls/hr 07/30/20 08:00 Lr IVCONT 07/31/20 03:59 .Q10H [facility] Loratadine 10 mg 07/29/20 16:15 07/30/20 08:32 Loratadine 10 Mg Tablet PO 10 mg DAILY [facility] Administration Melatonin 12 mg 07/29/20 21:00 07/29/20 20:49 Melatonin 3 Mg Tablet PO 12 mg BEDTIME [facility] Administration Metoprolol Succinate 150 mg 07/29/20 16:15 07/30/20 08:32 Metoprolol Succinate Er 50 Mg Tab.Er.24h PO 150 mg DAILY [facility] Administration Protocol Morphine Sulfate 1 mg 07/29/20 11:53 07/29/20 18:12 Morphine Sulfate 2 Mg/Ml Cartridge IVPUSH 1 mg Q4H PRN Administration Pain, Mild (Pain Scale 1-3) Multivitamins/Vitamin C 1 tab 07/29/20 16:15 07/30/20 08:33 Multivitamin Tablet PO 1 tab DAILY [facility] Administration Nitroglycerin 0.4 mg 07/29/20 16:01 Nitroglycerin 0.4 Mg Tab.Subl SUBLINGUAL Q5M PRN Chest Pain Omeprazole 20 mg 07/30/20 06:30 07/30/20 05:55 Omeprazole 20 Mg Capsule.Dr PO 20 mg DAILY@0630 [facility] Administration Sertraline HCl 100 mg 07/29/20 16:15 07/30/20 08:31 Sertraline Hcl 50 Mg Tablet PO 100 mg DAILY [facility] Administration Sodium Chloride 3 ml 07/29/20 16:00 07/30/20 08:33 0.9 % Sodium Chloride Flush 3 Ml Syringe IVFLUSH 3 ml QSHIFT [facility] Administration Tamsulosin HCl 0.4 mg 07/30/20 09:00 07/30/20 08:32 Tamsulosin Hcl 0.4 Mg Capsule PO 0.4 mg DAILY [facility] Administration Trazodone HCl 200 mg 07/29/20 21:00 07/29/20 20:48 Trazodone Hcl 100 Mg Tablet PO 200 mg BEDTIME [facility] Administration Verapamil HCl 180 mg 07/29/20 21:00 07/30/20 08:32 Verapamil Hcl Sr 180 Mg Tablet.Er PO 180 mg BID [facility] Administration Protocol Vitamin D 50 mcg 07/30/20 09:00 07/30/20 08:32 Cholecalciferol (Vitamin D3) 25 Mcg Tablet PO 50 mcg DAILY [facility] Administration Labs CBC & Chem 7: 07/30/20 05:55 07/30/20 05:55 Microbiology Microbiology Results: Microbiology 07/29/20 03:57 Blood - Venous Blood Culture - Preliminary No growth after 24 hours. 07/29/20 02:57 Blood - Venous Blood Culture - Preliminary No growth after 24 hours. Assessment and Plan (1) Pyelonephritis: Status: Acute Assessment and Plan: This is a 40 yo F with multiple medical issues including asthma, IgA nephropathy, [place], Migranes who is admitted for: 1. Sepsis secondary to pyelonephritis -- present on admission imporving slowly continue rocephin f/u cultures 2. Microscopic hematuria likely due to infection urology input appreciated 3. ENRIKE start ivf hold DENNY i/o monitor daily lytes 4. HTN continue home meds minus denny DVT pptx, mechanical. Cannot use heparin/lovenox due to documented severe pork allergy
[2020-07-30] MEDS: Lactated Ringers 1,000 ML 100 ML IVCONT (10:48)
[2020-07-30] MEDS: ondansetron HCL 4 MG/2 ML VIAL IVPUSH (12:17)
[2020-07-30] MEDS: Morphine Sulfate 2 MG/ML CARTRIDGE 1 MG IVPUSH (13:48)
--- NOTE | 2020-07-30 14:45 | MHC.CM.PN ---
NURSE PUBLIC SERVICES LIBRARIAN NOTE ELECTRONIC MEDICAL RECORD REVIEQWED ALONG WITH CASE DISCUSSED ON MULIPLE DISCIPLIANRY ROUNDS,PATIENT WILL REMAIN HERE [facility] THE [facility] A FEW M,ORE DAYS TO COMPLETE HER COURSE OF IV ABX
--- NOTE | 2020-07-30 15:55 | MHC.CM.PN ---
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
[2020-07-30] MEDS: Melatonin 3 MG TABLET 12 MG PO (20:15)
[2020-07-30] MEDS: traZODone HCL 100 MG TABLET 200 MG PO (20:15)
[2020-07-30] MEDS: hydrALAZINE HCl 50 MG TABLET PO (20:16)
[2020-07-31] VITALS (13 sets, daily range): BP systolic 119–188; BP diastolic 68–88; PULSE 61–78; RESP 16–18; TEMP 36.1–37.2; O2SAT 90–97
[2020-07-31] MEDS: Morphine Sulfate 2 MG/ML CARTRIDGE 1 MG IVPUSH (00:38)
[2020-07-31] MEDS: Omeprazole 20 MG CAPSULE.DR PO (05:06)
[2020-07-31] MEDS: Acetaminophen 325 MG TABLET 650 MG PO ×3 (05:09→19:48)
[2020-07-31 06:17] LABS: Hematocrit 32.3 % (37-47); Hemoglobin 10.2 g/dl (12.0-16.0); Mean Corpuscular HGB Conc 31.6 g/dl (31.0-35.0); Mean Corpuscular Hemoglobin 26.2 pg (27.0-33.0); Mean Platelet Volume 11.5 fL (9.4-12.3); Platelet Count 174 X10*3/uL (160-400); Red Blood Count 3.89 X10*6/uL (4.20-5.50); Red Cell Distribution Width 17.4 % (11.0-16.0); White Blood Count 19.7 X10*3/uL (4.8-10.8)
[2020-07-31 07:17] LABS: Anion Gap 12 (12-20); Blood Urea Nitrogen 29 mg/dL (9-16); Calcium 7.6 mg/dL (8.4-10.2); Carbon Dioxide 25 mmol/L (22-29); Chloride 102 mmol/L (96-108); Creatinine Clr Calc Pharmacy 44.2; Estimated Glomerular Filt Rate 25; Glucose Random 103 mg/dL (60-115); Potassium 4.1 mmol/L (3.3-5.1); Sodium 135 mmol/L (135-145)
[2020-07-31] MEDS: cefTRIAXone sodium 1 GM in 0.9 % Sodium Chloride 50 ML IV (08:15)
[2020-07-31] MEDS: hydrALAZINE HCl 25 MG TABLET 100 MG PO (08:16)
[2020-07-31] MEDS: Metoprolol Succinate ER 50 MG TAB.ER.24H 150 MG PO (08:17)
[2020-07-31] MEDS: Cholecalciferol (Vitamin D3) 25 MCG TABLET 50 MCG PO (08:17)
[2020-07-31] MEDS: Loratadine 10 MG TABLET PO (08:18)
[2020-07-31] MEDS: VerapamiL HCL SR 180 MG TABLET.ER PO ×2 (08:18→21:40)
[2020-07-31] MEDS: Sertraline HCL 50 MG TABLET 100 MG PO (08:18)
[2020-07-31] MEDS: Tamsulosin HCL 0.4 MG CAPSULE PO (08:19)
[2020-07-31] MEDS: 0.9 % Sodium Chloride Flush 3 ML SYRINGE IVFLUSH ×3 (08:19→21:44)
[2020-07-31] MEDS: Multivitamin TABLET 1 TAB PO (08:19)
[2020-07-31] MEDS: Fluticasone Propionate 100 MCG BLST.W.DEV 2 PUFF INHALE ×2 (08:31→20:16)
--- NOTE | 2020-07-31 11:00 | HO.PM.IMPN ---
Subjective Subjective Date of Service: 07/31/20 Interval History: seen and examined this Am continues to improve daily ROS General - no fevers or chills Cardiovascular - no chest pain Respiratory - no shortness of breath or cough Abdominal- no abdominal pain, +nausea, vomiting, diarrhea - flank pain, improved Physical Exam Vital Signs: Vital Signs: Last Vital Signs Temp 97 F 07/31/20 08:00 Pulse 78 07/31/20 08:33 Resp 16 07/31/20 08:00 BP 142/76 H 07/31/20 08:18 Pulse Ox 94 07/31/20 08:00 Body Mass Index 43.2 Const: Other: General - no acute distress, appears comfortable Cardiovascular - regular rate and rhythm, S1-S2 Lungs - normal respiratory effort, clear to auscultation bilaterally, no wheezing Abdomen - soft, nontender, no rebound or guarding; CVA tenderness improves Extremities - no edema bilaterally Neuro - awake and alert, no focal deficits Objective Data Current Medications Generic Name Dose Route Start Last Admin Trade Name Freq PRN Reason Stop Dose Admin Acetaminophen 650 mg 07/29/20 16:53 07/31/20 05:09 Acetaminophen 325 Mg Tablet PO 650 mg Q6H PRN Administration Pain, Mild (Pain Scale 1-3) Albuterol Sulfate 2 puff 07/29/20 16:01 Albuterol Sulfate 90 Mcg 8 Gm Inhaler INHALE QID PRN Shortness Of Breath Or Wheezing Fluticasone Propionate 2 spray 07/29/20 16:15 07/31/20 08:19 Fluticasone Propionate Nasal 16 Gm [place] NOSTRIL-B Not Given DAILY [facility] Fluticasone Propionate 2 puff 07/29/20 20:00 07/31/20 08:31 Fluticasone Propionate 100 Mcg Blst.W.Dev INHALE 2 puff RBID [facility] Administration Hydralazine HCl 50 mg 07/29/20 21:00 07/30/20 20:16 Hydralazine Hcl 50 Mg Tablet PO 50 mg BEDTIME [facility] Administration Protocol Hydralazine HCl 100 mg 07/29/20 16:15 07/31/20 08:16 Hydralazine Hcl 25 Mg Tablet PO 100 mg DAILY [facility] Administration Protocol Hydroxyzine HCl 50 mg 07/29/20 16:01 Hydroxyzine Hcl 50 Mg Tablet PO TID PRN Anxiety Ceftriaxone Sodium 1 gm/ 50 mls @ 100 mls/hr 07/30/20 09:00 07/31/20 09:54 Sodium Chloride IV Infused DAILY [facility] Infusion Loratadine 10 mg 07/29/20 16:15 07/31/20 08:18 Loratadine 10 Mg Tablet PO 10 mg DAILY [facility] Administration Melatonin 12 mg 07/29/20 21:00 07/30/20 20:15 Melatonin 3 Mg Tablet PO 12 mg BEDTIME [facility] Administration Metoprolol Succinate 150 mg 07/29/20 16:15 07/31/20 08:17 Metoprolol Succinate Er 50 Mg Tab.Er.24h PO 150 mg DAILY [facility] Administration Protocol Morphine Sulfate 1 mg 07/30/20 23:47 07/31/20 00:38 Morphine Sulfate 2 Mg/Ml Cartridge IVPUSH 1 mg Q4H PRN Administration Pain, Severe (Pain Scale 7-10) Multivitamins/Vitamin C 1 tab 07/29/20 16:15 07/31/20 08:19 Multivitamin Tablet PO 1 tab DAILY [facility] Administration Nitroglycerin 0.4 mg 07/29/20 16:01 Nitroglycerin 0.4 Mg Tab.Subl SUBLINGUAL Q5M PRN Chest Pain Omeprazole 20 mg 07/30/20 06:30 07/31/20 05:06 Omeprazole 20 Mg Capsule.Dr PO 20 mg DAILY@0630 [facility] Administration Ondansetron HCl 4 mg 07/30/20 09:53 07/30/20 12:17 Ondansetron Hcl 4 Mg/2 Ml Vial IVPUSH 4 mg Q8H PRN Administration Nausea Sertraline HCl 100 mg 07/29/20 16:15 07/31/20 08:18 Sertraline Hcl 50 Mg Tablet PO 100 mg DAILY [facility] Administration Sodium Chloride 3 ml 07/29/20 16:00 07/31/20 08:19 0.9 % Sodium Chloride Flush 3 Ml Syringe IVFLUSH 3 ml QSHIFT [facility] Administration Tamsulosin HCl 0.4 mg 07/30/20 09:00 07/31/20 08:19 Tamsulosin Hcl 0.4 Mg Capsule PO 0.4 mg DAILY [facility] Administration Trazodone HCl 200 mg 07/29/20 21:00 07/30/20 20:15 Trazodone Hcl 100 Mg Tablet PO 200 mg BEDTIME [facility] Administration Verapamil HCl 180 mg 07/29/20 21:00 07/31/20 08:18 Verapamil Hcl Sr 180 Mg Tablet.Er PO 180 mg BID [facility] Administration Protocol Vitamin D 50 mcg 07/30/20 09:00 07/31/20 08:17 Cholecalciferol (Vitamin D3) 25 Mcg Tablet PO 50 mcg DAILY [facility] Administration Labs CBC & Chem 7: 07/31/20 05:49 07/31/20 05:49 Microbiology Microbiology Results: Microbiology 07/29/20 Unknown Urine clean catch - Clean Catch Midstream Urine Culture - Final Escherichia coli 07/29/20 03:57 Blood - Venous Blood Culture - Preliminary No growth after 48 hours. 07/29/20 02:57 Blood - Venous Blood Culture - Preliminary No growth after 48 hours. Assessment and Plan (1) Pyelonephritis: Status: Acute Assessment and Plan: This is a 40 yo F with multiple medical issues including asthma, IgA nephropathy, [place], Migranes who is admitted for: 1. Sepsis secondary to pyelonephritis -- present on admission; secondary to E. Coli improving slowly - leukocytosis finally improved continue rocephi - day #3 -- play for f/u cultures - E. coli in the urine, blood negative 2. Microscopic hematuria likely due to infection urology input appreciated 3. ENRIKE SCr continues to rise slowly IVF daily chem 4. HTN continue home meds minus william DVT pptx, mechanical. Cannot use heparin/lovenox due to documented severe pork allergy
[2020-07-31] MEDS: Melatonin 3 MG TABLET 12 MG PO (21:37)
[2020-07-31] MEDS: hydrALAZINE HCl 50 MG TABLET PO (21:40)
[2020-07-31] MEDS: traZODone HCL 100 MG TABLET 200 MG PO (21:41)
[2020-08-01 03:17] VITALS: BP 158/96; PULSE 76; RESP 16; TEMP 37.1; O2SAT 94
[2020-08-01] MEDS: Acetaminophen 325 MG TABLET 650 MG PO (03:27)
[2020-08-01] MEDS: Omeprazole 20 MG CAPSULE.DR PO (05:58)
[2020-08-01 06:20] LABS: Hematocrit 31.8 % (37-47); Hemoglobin 10.1 g/dl (12.0-16.0); Mean Corpuscular HGB Conc 31.8 g/dl (31.0-35.0); Mean Corpuscular Hemoglobin 26.2 pg (27.0-33.0); Mean Corpuscular Volume 82.6 fL (80-98); Mean Platelet Volume 11.7 fL (9.4-12.3); Platelet Count 196 X10*3/uL (160-400); Red Blood Count 3.85 X10*6/uL (4.20-5.50); Red Cell Distribution Width 17.2 % (11.0-16.0); White Blood Count 13.9 X10*3/uL (4.8-10.8)
[2020-08-01 06:37] LABS: Anion Gap 11 (12-20); Blood Urea Nitrogen 27 mg/dL (9-16); Calcium 7.9 mg/dL (8.4-10.2); Carbon Dioxide 27 mmol/L (22-29); Chloride 105 mmol/L (96-108); Creatinine Clr Calc Pharmacy 57.8; Estimated Glomerular Filt Rate 34; Glucose Random 107 mg/dL (60-115); Potassium 4.2 mmol/L (3.3-5.1); Sodium 139 mmol/L (135-145)
[2020-08-01 08:00] VITALS: BP 156/94; PULSE 68; RESP 18; TEMP 36.4; O2SAT 94
[2020-08-01] MEDS: Fluticasone Propionate 100 MCG BLST.W.DEV 2 PUFF INHALE (08:28)
[2020-08-01 08:29] VITALS: PULSE 80; O2SAT 96
--- NOTE | 2020-08-01 08:40 | PM.DS ---
DS: Providers Provider Date of Service: 08/01/20 Date of admission: 07/29/20 11:22 Primary care physician: Unknown Physician Consults: 07/29/20 11:23 Consult to Urology Routine Consulting Provider: Yogesh Anthony Reason for consultation: uti/? renal mass/stone Has provider been notified: No DS: Diagnosis Discharge Diagnosis (1) Sepsis: Status: Acute (2) Pyelonephritis: Status: Acute (3) ENRIKE (acute kidney injury): Status: Acute DS: Medications Discharge Medications Home Medications: Home Medications Medication Instructions Recorded Confirmed albuterol sulfate [ProAir HFA] 2 puff INHALATION QID PRN 04/11/20 07/29/20 fluticasone propionate 2 puff INHALATION BID 04/11/20 07/29/20 fluticasone propionate 2 spray INTRANASAL DAILY 04/11/20 07/29/20 hydroxyzine HCl 50 mg PO TID PRN 04/11/20 07/29/20 lisinopril 40 mg PO DAILY 04/11/20 07/29/20 loratadine [Claritin] 10 mg PO DAILY 04/11/20 07/29/20 multivitamin 1 tab PO DAILY 04/11/20 07/29/20 nitroglycerin 0.4 mg SUBLINGUAL Q5M PRN MDD 3 04/11/20 07/29/20 pantoprazole 40 mg PO DAILY 04/11/20 07/29/20 sertraline 100 mg PO DAILY 04/11/20 07/29/20 hydralazine 50 mg PO QPM 07/29/20 07/29/20 hydralazine 100 mg PO DAILY 07/29/20 07/29/20 melatonin 12 mg PO BEDTIME 07/29/20 07/29/20 metoprolol succinate 150 mg PO DAILY 07/29/20 07/29/20 trazodone 200 mg PO BEDTIME 07/29/20 07/29/20 verapamil 180 mg PO BID 07/29/20 07/29/20 Previous Rx's Medication Instructions Recorded cholecalciferol (vitamin D3) 50 50 mcg PO DAILY #30 cap 05/06/20 mcg (2,000 unit) capsule cefuroxime axetil 500 mg PO Q12H #20 tab 08/01/20 DS: Summary Hospital Course Hospital Course: Patient was admitted for sepsis secondary to pyelonephritis. She was treated with empiric IV ceftriaxone which was subsequently tailored to the oral cefuroxime 500 mg twice daily at the time of discharge. Her urine culture result did positive for E coli which was sensitive to ceftriaxone. Blood cultures are negative at the time of discharge. Her hospital course was complicated by acute kidney injury. Fortunately, her serum creatinine is improving. Her lisinopril was held in the hospital and will be held for 1 week. She is to complete a repeat chemistry prior to restarting her lisinopril. Time Spent with Patient Time attestation: Total time spent providing and/or coordinating discharge services: Discharge coordination time: Greater than 30 minutes Physical Exam Vital Signs: Vital Signs: Last Vital Signs Temp 97.6 F 08/01/20 08:00 Pulse 80 08/01/20 08:29 Resp 18 08/01/20 08:00 BP 156/94 H 08/01/20 08:00 Pulse Ox 94 08/01/20 08:00 Body Mass Index 43.2 Const: Other: General - no acute distress, appears comfortable Cardiovascular - regular rate and rhythm, S1-S2 Lungs - normal respiratory effort, clear to auscultation bilaterally, no wheezing Abdomen - soft, nontender, no rebound or guarding; CVA tenderness improves Extremities - no edema bilaterally Neuro - awake and alert, no focal deficits DS: Data Data Completed and Pending Labs on day of discharge: Laboratory Results - last 24 hr 08/01/20 08/01/20 05:52 05:52 WBC 13.9 H RBC 3.85 L Hgb 10.1 L Hct 31.8 L MCV 82.6 MCH 26.2 L MCHC 31.8 RDW 17.2 H Plt Count 196 MPV 11.7 Absolute Nucleated RBC 0.000 Nucleated RBC % (auto) 0.0 Sodium 139 Potassium 4.2 Chloride 105 Carbon Dioxide 27 Anion Gap 11 L BUN 27 H Creatinine 1.66 H Estim Creat Clear Calc 57.8 Estimated GFR 34 Random Glucose 107 Calcium 7.9 L Preliminary micro results at discharge 07/29/20 03:57 Blood Culture - Preliminary Blood - Venous No growth after 48 hours. 07/29/20 02:57 Blood Culture - Preliminary Blood - Venous No growth after 48 hours. Discharge Plan Discharge Patient Disposition: Home, Self-Care Referrals: Yogesh Anthony MD [Physician] - Hector Daley MD [Physician] - (call office next week) Physician,Unknown [Primary Care Provider] - Discharge Medications: New cefuroxime axetil 500 mg tablet 500 mg PO Q12H Qty: 20 RF: 0 Continued cholecalciferol (vitamin D3) [Vitamin D3] 50 mcg (2,000 unit) capsule 50 mcg PO DAILY Qty: 30 RF: 2 hydralazine 50 mg Tablet 100 mg PO DAILY RF: 0 hydralazine 50 mg Tablet 50 mg PO QPM RF: 0 verapamil 180 mg Capsule,Ext Rel. Pellets 24 Hr 180 mg PO BID RF: 0 trazodone 100 mg Tablet 200 mg PO BEDTIME RF: 0 melatonin 3 mg Tablet 12 mg PO BEDTIME RF: 0 metoprolol succinate 100 mg Tablet Extended Release 24 Hr 150 mg PO DAILY RF: 0 multivitamin Tablet 1 tab PO DAILY RF: 0 hydroxyzine HCl 50 mg Tablet 50 mg PO TID PRN (Reason: Anxiety) RF: 0 pantoprazole 40 mg Tablet,Delayed Release (Dr/Ec) 40 mg PO DAILY RF: 0 nitroglycerin 0.4 mg Tablet, Sublingual 0.4 mg SUBLINGUAL Q5M MDD 3 PRN (Reason: Chest Pain) RF: 0 albuterol sulfate [ProAir HFA] 90 mcg/actuation Hfa Aerosol Inhaler 2 puff INHALATION QID PRN (Reason: Shortness Of Breath Or Wheezing) RF: 0 fluticasone propionate 50 mcg/actuation [place],Suspension 2 spray INTRANASAL DAILY RF: 0 sertraline 50 mg Tablet 100 mg PO DAILY RF: 0 loratadine [Claritin] 10 mg Tablet 10 mg PO DAILY RF: 0 fluticasone propionate 110 mcg/actuation Hfa Aerosol Inhaler 2 puff INHALATION BID RF: 0 Held lisinopril 40 mg Tablet 40 mg PO DAILY RF: 0 Hold Instructions: Resume on 08/08/20. Get your blood work checked next week and confirm with kidney doctors before starting Discharge Orders: Discharge Order (Routine); Ordered 08/01/20 Ordered By: Cornell Li Diet: advance to usual diet Activity on Discharge: As tolerated Stand Alone Forms: Patient Portal Discharge page Other Ambulatory Orders: Basic Metabolic Panel (Routine) Timeframe: [id number] Facility: [facility] - Location: Laboratory Ordered By: Cornell Li Visit Report Forms: Patient Portal Discharge page Care Plan Goals: To stay healthy and out of the hospital. Health Concerns: Pyelonephritis Acute Kidney Injury Plan of Treatment: Pyelonephritis - Take 10 days of Cefuroxime (Ceftin) 500mg twice daily. Follow up with Dr. Anthony Acute Kidney Injury - You kidneys are getting better. Do not take Lisinopril (blood pressure medicine) for 1 week. Get blood work checked next week and discuss with your primary care doctor or kidney doctor prior to restarting this medication. Monitor your blood pressure at home.
[2020-08-01] MEDS: cefTRIAXone sodium 1 GM in 0.9 % Sodium Chloride 50 ML IV (08:48)
[2020-08-01] MEDS: Multivitamin TABLET 1 TAB PO (08:49)
[2020-08-01] MEDS: hydrALAZINE HCl 25 MG TABLET 100 MG PO (08:49)
[2020-08-01] MEDS: Sertraline HCL 50 MG TABLET 100 MG PO (08:49)
[2020-08-01] MEDS: VerapamiL HCL SR 180 MG TABLET.ER PO (08:50)
[2020-08-01] MEDS: Metoprolol Succinate ER 50 MG TAB.ER.24H 150 MG PO (08:50)
[2020-08-01] MEDS: Loratadine 10 MG TABLET PO (08:52)
[2020-08-01] MEDS: 0.9 % Sodium Chloride Flush 3 ML SYRINGE IVFLUSH (09:01)
[2020-08-01] MEDS: Cholecalciferol (Vitamin D3) 25 MCG TABLET 50 MCG PO (09:06)
[2020-08-01] MEDS: Tamsulosin HCL 0.4 MG CAPSULE PO (09:06)
== END 2020-08-01 10:07 | disposition home or self-care (01) | DRG 720 ==
LOC: HO.ED 05:57 → HO.EDOVER 11:34 → HO.S3 15:08
PROVIDERS: Physician Assistant; Admitting Provider Internal Medicine; Emergency Provider Emergency Medicine; Visit Provider Family Medicine
DX: A41.9 Sepsis, unspecified organism (principal); N17.9 Acute kidney failure, unspecified; N12 Tubulo-interstitial nephritis, not specified as acute or chronic; J45.909 Unspecified asthma, uncomplicated; I10 Essential (primary) hypertension; D17.71 Benign lipomatous neoplasm of kidney; I25.2 Old myocardial infarction; B96.20 Unspecified Escherichia coli [E. coli] as the cause of diseases classified elsewhere; R31.29 Other microscopic hematuria; F41.9 Anxiety disorder, unspecified; F17.210 Nicotine dependence, cigarettes, uncomplicated; Z20.822 Contact with and (suspected) exposure to COVID-19; Z85.520 Personal history of malignant carcinoid tumor of kidney; Z79.51 Long term (current) use of inhaled steroids; Z88.6 Allergy status to analgesic agent; Z79.899 Other long term (current) drug therapy
CPT/HCPCS: 36415; 74176; 80048; 80053; 81001; 81003; 83605; 85025; 85027; 87040; 87086; 87088; 87186; 87635; 94640; 96361; 96365; 96375; 99284; 99285; J0696; J2270; J2405

== ENCOUNTER 2020-11-10 10:35 | Outpatient (REF) | payer MEDICAID, SELFPAY ==
[2020-11-10 12:39] LABS: Anion Gap 11 (12-20); Blood Urea Nitrogen 12 mg/dL (9-16); Calcium 8.4 mg/dL (8.4-10.2); Carbon Dioxide 26 mmol/L (22-29); Chloride 104 mmol/L (96-108); Estimated Glomerular Filt Rate 53; Potassium 4.2 mmol/L (3.3-5.1); Sodium 137 mmol/L (135-145)
[2020-11-10 12:52] LABS: Creatinine Urine 168.41 mg/dL
[2020-11-10 13:04] LABS: Protein/Creatinine Ratio, Ur 2.33 (<0.2); Total Protein Urine Random 392 mg/dL (<12)
== END 2020-11-10 10:36 | disposition home or self-care (01) ==
LOC: HO.LAB 10:35
PROVIDERS: Absent Provider Internal Medicine Nephrology; PCP Nurse Practitioner Family; Visit Provider Internal Medicine Pulmonary Disease
DX: G47.34 Idiopathic sleep related nonobstructive alveolar hypoventilation (principal); J45.909 Unspecified asthma, uncomplicated; I10 Essential (primary) hypertension; R80.8 Other proteinuria; R31.9 Hematuria, unspecified; N08 Glomerular disorders in diseases classified elsewhere; C64.2 Malignant neoplasm of left kidney, except renal pelvis; F17.200 Nicotine dependence, unspecified, uncomplicated; Z91.09 Other allergy status, other than to drugs and biological substances
CPT/HCPCS: 36415; 80051; 82310; 82565; 84156; 84520; 99212

== ENCOUNTER → 2020-12-26 09:02 | Outpatient (BNVA) | payer MEDICAID, SELFPAY | PROVIDERS: PCP Nurse Practitioner Primary Care; Visit Provider Internal Medicine Pulmonary Disease | DX: J45.909 Unspecified asthma, uncomplicated (principal); G47.34 Idiopathic sleep related nonobstructive alveolar hypoventilation; Z91.09 Other allergy status, other than to drugs and biological substances | CPT/HCPCS: 99212 ==

== ENCOUNTER → 2021-03-10 12:34 | Outpatient (BNVA) | payer MEDICAID, SELFPAY | PROVIDERS: PCP Nurse Practitioner Primary Care; Referring Provider Nurse Practitioner Primary Care; Visit Provider Internal Medicine Cardiovascular Disease | DX: I10 Essential (primary) hypertension (principal) | CPT/HCPCS: 93005; 99212 ==

== ENCOUNTER → 2021-05-06 09:11 | Outpatient (REF) | payer MEDICAID, SELFPAY ==
--- NOTE | 2021-05-06 09:14 | CA_ITS ---
INDICATIONS: ESSENTIAL (PRIMARY) HYPERTENSION: HT: 5'5 WT: 240 BSA: BP: 135/80 EXHAUST TENDER: YR STUDY QUALITY: ECG RHYTHM: CONCLUSION: FINDINGS: M-MODE/2D MEASUREMENTS: LVd: 4.68 LVs: 3.03 IVSd: 1.28 IVSs: LVPWd: 1.35 ASC Aorta: 3.3 RVd: 4.16 AO Root 2.5 LA: 4.5 AV Cusp: LVOT: 2.0 EF% TAPSE: 2.77 OTHER: EFFUSION: THROMBUS: WALL MOTION: RVSP: 62 mmHg Mitral E/A: 141 / 104 =1.4 E Med. 8.59 E. Lat. 7.62 DOPPLER MEASUREMENTS: AORTIC PP mmHg MPG 16 mmHg Velocity: 260 m/s Valve Area: 2.02 TRICUSPID: PP mmHg Velocity: 341 RA Vol. 24.5 IVC: 2.56 LA Vol. 47.7 RVS: 14.6 MTDD
--- NOTE | 2021-05-06 09:14 | CA_ITS ---
Transthoracic Echocardiogram Patient (Last, First, Middle): Caitlyn Hercules V Gender: Female Date of : 1980 Age: 40 Procedure Date: 05/06/2021 Procedure Type: Transthoracic Echocardiogram Location: OP Height: 165.1 cm Weight: 108.86 kg BSA: 2.14 m2 Heart Rate: bpm BP: 135 / 80 mmHg Coffee Grower: SHALA Referring MD: Quoc Patino MD Bottom Turning Lathe Turner: Quoc Patino MD Symptoms: I10 - Essential (primary) hypertension Study Quality: Good ECG Rhythm: Sinus Conclusions: - 1. Normal LV systolic function with mild LVH with pseudonormal filling pattern 2. Moderately dilated left atrium 3. Increased gradient across aortic valve, may suggest increase stroke volume versus early mild aortic stenosis 4. Moderately elevated right ventricular systolic pressure 5. No gross pericardial effusion Findings Left Ventricle Normal left ventricular size and systolic function. There is mildly increased left ventricular wall thickness. The visually estimated ejection fraction is between 60-65%. Spectral Doppler is indicative of a pseudonormal filling pattern. Right Ventricle Normal right ventricular cavity size and systolic function. Atria The left atrium is moderately dilated. There is no evidence of interatrial shunt. The right atrium is normal in size. Aortic Valve The aortic valve was not well visualized. The peak aortic gradient is 27 mmHg.The mean gradient is 16 mmHg. There is trace (trivial) aortic valve regurgitation. Increased gradient across the aortic valve as well as LVOT is most suggestive of high stroke volume. However mild aortic stenosis cannot be entirely ruled out on this study Mitral Valve There is mild posterior mitral leaflet thickening. There is mild mitral valve regurgitation. There is no mitral valve stenosis. Pulmonic Valve The pulmonic valve was not well visualized. Tricuspid Valve Likely normal tricuspid valve structure and function. There is mild tricuspid valve regurgitation. Mildly elevated right atrial pressure. Moderate pulmonary hypertension is present. Great Vessels All visible segments of the aorta are normal in size. The pulmonary artery was not well visualized. Venous The inferior vena cava is mildly dilated and collapses less than 50% with inspiration. Pericardium/Pleural There is no evidence of pericardial effusion. Prior Study Comparison Changes noted compared to prior study dated: 06/27/2019. RV systolic pressure is elevated Measurements 2D Linear Measurements IVSd: 1.28 0.6-0.9/0.6-1.0 cm LVIDd: 4.68 3.9-5.3/4.2-5.9 cm LVIDd Index: 2.19 2.4-3.2/2.2-3.1 cm/m2 LVIDs: 3.03 2.0-3.6 cm LVPWd: 1.35 0.7-1.1 cm Ao Root: 2.50 2.1-3.5 cm LA Diam: 4.50 2.7-3.8/3.0-4.0 cm LAIDs Index: 2.10 1.5-2.3 cm/m2 LV Mass: 299.64 67-162/88-224 g LV Mass Index: 140.02 43-95/49-115 g/m2 LVOT Diam: 2.00 3.0+(-)1.3 cm 2D Systolic Function EF 4C: 68.60 >55% EF 2C: 59.60 >55% EF BiP: 63.70 >55% Mitral Valve MV Pk E: 1.41 MV PK A: 1.04 MV Decel Time: 186.00 E/A: 1.40 E'Lateral: 7.62 E'Medial: 8.59 E/E' Med: 16.40 E/E' Lat: 18.50 PHT: 54.00 MVA PHT: 4.07 Decel [place]: 7.61 Aortic Valve AoV Pk Vinnie: 2.60 AoV Mn Vinnie: 1.88 AoV VTI: 0.48 AoV Pk Grad: 27.00 Aov Mn Grad: 16.00 JERRY Cont.VTI: 2.15 LVOT LVOT Pk Vinnie: 1.67 LVOT Mn Vinnie: 1.20 LVOT VTI: 0.33 LVOT Pk Grad: 11.00 LVOT Mn Grad: 7.00 LVOT Diam: 2.00 LVOT Area: 3.14 Diastolic Function MV Pk E: 1.41 MV Pk A: 1.04 E/A: 1.40 E'Medial: 8.59 E/E' Med: 16.40 E' Laterial: 7.62 E/E' Lat: 18.50 Right Ventricle TAPSE (mm): 2.77 Tricuspid Valve TR Pk Vinnie: 3.41 TR Pk Grad: 47.00 RA Press: 8.00 RVSP: 55.00 Great Vessels Aorta Ao Root-2D: 2.50 2.0-3.7 cm Ao Asc: 3.30 2.1-3.4 cm Ao Arch: 2.50 Updated in Other Vendor System with Status of Final Quoc Patino MD electronically signed on 05/13/2021 8:55:45 AM with status of Final
== END ==
LOC: HO.CARD 09:11
PROVIDERS: Visit Provider Internal Medicine Cardiovascular Disease
DX: I10 Essential (primary) hypertension (principal)
CPT/HCPCS: 93306

== ENCOUNTER 2021-05-08 08:32 | Outpatient (REF) | payer MEDICAID, SELFPAY ==
--- NOTE | ~2021-05-08 | MM_ITS ---
EXAMINATION: MM SCREENING DIGITAL BREAST TOMOSYNTHESIS, BILATERAL CLINICAL INFORMATION: Screening. Asymptomatic. Family history breast cancer, mother. The lifetime risk of breast cancer based on the Tyrer-Cuzick Model is 23%. COMPARISON: Mammography: 03/28/2020, 03/13/2020, 01/25/2019, 01/12/2017, 05/27/2016, 04/17/2016; MRI breasts 02/21/2019 TECHNIQUE: Digital breast tomosynthesis is performed in both the craniocaudal and mediolateral oblique views along with computer-aided detection (CAD). Synthesized 2D images are generated from the tomosynthesis. FINDINGS: The breasts are heterogeneously dense, which may obscure small masses (ACR BI-RADS breast composition Category c). There are no significant masses, abnormal calcifications, or other abnormalities. There is biopsy clip marker again seen posterior upper outer left breast. MM/MM tomosynthesis screening BI IMPRESSION: 1. There are no significant changes from prior study. 2. The lifetime risk of breast cancer based on the Tyrer-Cuzick Model is 23%. Additional annual adjunct screening with breast MRI may be of benefit in women with a risk score of 20% or greater. ASSESSMENT: BI-RADS 1: Negative RECOMMENDATION: Routine annual mammography screening. This patient's information was entered into a reminder system with a target due date for their next mammogram.
== END 2021-05-08 08:33 | disposition home or self-care (01) ==
LOC: HO.MAMMO 08:32
PROVIDERS: Visit Provider Nurse Practitioner Primary Care
DX: Z12.31 Encounter for screening mammogram for malignant neoplasm of breast (principal)
CPT/HCPCS: 77063; 77067

== ENCOUNTER 2021-05-26 08:23 | Outpatient (REF) | payer MEDICAID, SELFPAY ==
[2021-05-26 08:22] LABS: Blood Urea Nitrogen 14 mg/dL (9-16); Estimated Glomerular Filt Rate 51
== END 2021-05-26 08:24 | disposition home or self-care (01) ==
LOC: HO.MRI 08:23
PROVIDERS: Visit Provider Nurse Practitioner Primary Care
DX: Z80.3 Family history of malignant neoplasm of breast (principal)
CPT/HCPCS: 36415; 82565; 84520

== ENCOUNTER 2022-01-13 12:54 | Outpatient (REF) | payer MEDICAID, SELFPAY ==
[2022-01-13 14:13] LABS: Anion Gap 13 (12-20); Blood Urea Nitrogen 11 mg/dL (9-16); Calcium 8.6 mg/dL (8.4-10.2); Carbon Dioxide 26 mmol/L (22-29); Chloride 104 mmol/L (96-108); Estimated Glomerular Filt Rate 51; Potassium 4.1 mmol/L (3.3-5.1); Sodium 139 mmol/L (135-145)
[2022-01-13 15:15] LABS: Creatinine Urine 54.57 mg/dL; Protein/Creatinine Ratio, Ur 3.46 (<0.2); Total Protein Urine Random 189 mg/dL (<12)
== END 2022-01-13 12:55 | disposition home or self-care (01) ==
LOC: HO.LAB 12:54
PROVIDERS: PCP Nurse Practitioner Primary Care; Visit Provider Internal Medicine Nephrology
DX: R31.9 Hematuria, unspecified (principal); R80.8 Other proteinuria; I10 Essential (primary) hypertension
CPT/HCPCS: 36415; 80051; 82310; 82565; 84156; 84520

== ENCOUNTER → 2022-02-17 09:39 | Outpatient (BNVA) | payer MEDICAID, SELFPAY | PROVIDERS: PCP Nurse Practitioner Primary Care; Visit Provider Internal Medicine Pulmonary Disease | DX: J45.40 Moderate persistent asthma, uncomplicated (principal); G47.34 Idiopathic sleep related nonobstructive alveolar hypoventilation; E66.9 Obesity, unspecified; Z91.09 Other allergy status, other than to drugs and biological substances; Z68.41 Body mass index [BMI] 40.0-44.9, adult | CPT/HCPCS: 99212 ==

== ENCOUNTER 2022-05-11 09:35 | Outpatient (REF) | payer MEDICAID, SELFPAY ==
--- NOTE | ~2022-05-11 | MM_ITS ---
EXAMINATION: MM SCREENING DIGITAL BREAST TOMOSYNTHESIS, BILATERAL CLINICAL INFORMATION: Screening. Asymptomatic. The lifetime risk of breast cancer based on the Tyrer-Cuzick Model is 14%. COMPARISON: Mammography: 05/08/2021, 03/28/2020, 03/13/2020, 01/25/2019 TECHNIQUE: Digital breast tomosynthesis is performed in both the craniocaudal and mediolateral oblique views along with computer-aided detection (CAD). Synthesized 2D images are generated from the tomosynthesis. FINDINGS: The breasts are heterogeneously dense, which may obscure small masses (ACR BI-RADS breast composition Category c). There are no significant masses, abnormal calcifications, or other abnormalities. There is biopsy clip marker posterior upper outer left breast. No developing density or interval mass or architectural abnormality. The axilla and skin contours are unremarkable. MM/MM tomosynthesis screening BI IMPRESSION: No mammographic evidence of malignancy. ASSESSMENT: BI-RADS 1: Negative RECOMMENDATION: Routine annual mammography screening. This patient's information was entered into a reminder system with a target due date for their next mammogram.
== END 2022-05-11 09:36 | disposition home or self-care (01) ==
LOC: HO.MAMMO 09:35
PROVIDERS: Visit Provider Nurse Practitioner Primary Care
DX: Z12.31 Encounter for screening mammogram for malignant neoplasm of breast (principal)
CPT/HCPCS: 77063; 77067

== ENCOUNTER → 2022-09-01 08:51 | Outpatient (BNVA) | payer MEDICAID, SELFPAY | PROVIDERS: PCP Nurse Practitioner Primary Care; Visit Provider Internal Medicine Pulmonary Disease | DX: G47.34 Idiopathic sleep related nonobstructive alveolar hypoventilation (principal) | CPT/HCPCS: 94618; 99211 ==

== ENCOUNTER 2022-09-09 10:50 | Outpatient (REF) | payer MEDICAID, SELFPAY ==
[2022-09-09 13:09] LABS: Creatinine Urine 49.94 mg/dL
[2022-09-09 13:42] LABS: Protein/Creatinine Ratio, Ur 4.81 (<0.2); Total Protein Urine Random 240 mg/dL (<12)
== END 2022-09-09 10:51 | disposition home or self-care (01) ==
LOC: HO.LAB 10:50
PROVIDERS: PCP Nurse Practitioner Primary Care; Visit Provider Internal Medicine Nephrology
DX: I10 Essential (primary) hypertension (principal)
CPT/HCPCS: 84156

== ENCOUNTER → 2022-10-21 08:51 | Outpatient (BNVA) | payer MEDICAID, SELFPAY | PROVIDERS: PCP Nurse Practitioner Primary Care; Visit Provider Internal Medicine Pulmonary Disease | DX: J45.909 Unspecified asthma, uncomplicated (principal); G47.34 Idiopathic sleep related nonobstructive alveolar hypoventilation; Z91.09 Other allergy status, other than to drugs and biological substances | CPT/HCPCS: 99212 ==

== ENCOUNTER → 2022-12-10 13:25 | Outpatient (BNVA) | payer MEDICAID, SELFPAY | PROVIDERS: PCP Nurse Practitioner Primary Care; Visit Provider Internal Medicine Pulmonary Disease | DX: J45.909 Unspecified asthma, uncomplicated (principal); G47.34 Idiopathic sleep related nonobstructive alveolar hypoventilation; Z91.09 Other allergy status, other than to drugs and biological substances | CPT/HCPCS: 99212 ==

== ENCOUNTER → 2023-02-23 08:00 | Outpatient (REF) | payer MEDICAID, SELFPAY ==
--- NOTE | 2023-02-23 08:03 | CA_ITS ---
Transthoracic Echocardiogram Patient (Last, First, Middle): Caitlyn Hercules V Gender: Female Date of : 1980 Age: 42 Procedure Date: 02/23/2023 Procedure Type: Transthoracic Echocardiogram Location: OP Height: 165.1 cm Weight: 117.94 kg BSA: 2.21 m2 Heart Rate: bpm BP: 165 / 80 mmHg Bedspread Cutter: Referring MD: Quoc Patino MD Machine Plate Stacker: Quoc Patino MD Symptoms: I10 - Essential (primary) hypertension Study Quality: Adequate ECG Rhythm: Sinus Conclusions: - 1. Normal LV ejection fraction of 60-65% with moderate left ventricular hypertrophy and grade 2 diastolic dysfunction 2. Moderately dilated left atrium 3. Mild aortic regurgitation 4. Xols-if-ugihblov elevation right go systolic pressure mildly elevated right atrial pressures 5. Upper limits of normal ascending aortic size at 3.6 cm 6. No pericardial effusion Findings Left Ventricle Normal left ventricular size and systolic function. There is moderately increased left ventricular wall thickness. The visually estimated ejection fraction is between 60-65%. Spectral Doppler is indicative of a pseudonormal filling pattern. E/E prime ratio is >15, consistent with elevated filling pressures. Evidence suggests grade II (moderate) diastolic dysfunction. Right Ventricle Mildly increased right ventricular cavity size. There is normal right ventricular systolic function. Atria The left atrium is moderately dilated. Interatrial shunt cannot be excluded. The right atrium is likely dilated. Aortic Valve The aortic valve structure and function is likely normal. There is no aortic valve stenosis. There is mild aortic valve regurgitation. Mitral Valve Normal mitral valve structure and function. There is trace mitral valve regurgitation. There is no mitral valve stenosis. Pulmonic Valve The pulmonic valve is likely normal. There is trace pulmonic valve regurgitation. Tricuspid Valve Normal tricuspid valve structure. There is mild tricuspid valve regurgitation. Mildly elevated right atrial pressure. Mild to moderate pulmonary hypertension is present. Great Vessels The pulmonary artery was not well visualized. Venous The inferior vena cava is moderately dilated and collapses greater than 50% with inspiration. Pericardium/Pleural There is no evidence of pericardial effusion. Measurements 2D Linear Measurements IVSd: 1.45 0.6-0.9/0.6-1.0 cm LVIDd: 4.51 3.9-5.3/4.2-5.9 cm LVIDd Index: 2.04 2.4-3.2/2.2-3.1 cm/m2 LVIDs: 2.92 2.0-3.6 cm LVPWd: 1.47 0.7-1.1 cm Ao Root: 2.60 2.1-3.5 cm LA Diam: 4.80 2.7-3.8/3.0-4.0 cm LAIDs Index: 2.17 1.5-2.3 cm/m2 LV Mass: 331.18 67-162/88-224 g LV Mass Index: 149.85 43-95/49-115 g/m2 LVOT Diam: 2.00 3.0+(-)1.3 cm Mitral Valve MV Pk E: 0.86 MV PK A: 0.64 MV Decel Time: 205.00 E/A: 1.30 E'Lateral: 4.35 E'Medial: 5.44 E/E' Med: 15.80 E/E' Lat: 19.70 PHT: 60.00 MVA PHT: 3.67 Decel Teller: 4.18 Aortic Valve AoV Pk Vinnie: 2.14 AoV Mn Vinnie: 1.35 AoV VTI: 0.53 AoV Pk Grad: 18.00 Aov Mn Grad: 9.00 JERRY Cont.VTI: 1.61 LVOT LVOT Pk Vinnie: 1.09 LVOT Mn Vinnie: 0.71 LVOT VTI: 0.27 LVOT Pk Grad: 5.00 LVOT Mn Grad: 2.00 LVOT Diam: 2.00 LVOT Area: 3.14 Diastolic Function MV Pk E: 0.86 MV Pk A: 0.64 E/A: 1.30 E'Medial: 5.44 E/E' Med: 15.80 E' Laterial: 4.35 E/E' Lat: 19.70 Right Ventricle TAPSE (mm): 37.00 TVS' Vinnie: 12.00 Tricuspid Valve TR Pk Vinnie: 3.03 TR Pk Grad: 37.00 RA Press: 8.00 RVSP: 45.00 Great Vessels Aorta Ao Root-2D: 2.60 2.0-3.7 cm Ao Asc: 3.60 2.1-3.4 cm Pulmonary Valve PV Pk Vinnie: 1.28 Peak PV Grad: 7.00 Updated in Other Vendor System with Status of Final Quoc Patino MD electronically signed on 02/23/2023 3:14:42 PM with status of Final
== END ==
LOC: HO.CARD 08:00
PROVIDERS: PCP Nurse Practitioner Primary Care; Visit Provider Internal Medicine Cardiovascular Disease
DX: I26.99 Other pulmonary embolism without acute cor pulmonale (principal); I10 Essential (primary) hypertension; G47.34 Idiopathic sleep related nonobstructive alveolar hypoventilation
CPT/HCPCS: 93306

== ENCOUNTER → 2023-02-23 08:03 | Outpatient (BNV) | payer MEDICAID, SELFPAY | PROVIDERS: PCP Nurse Practitioner Primary Care; Visit Provider Internal Medicine Cardiovascular Disease | DX: I35.1 Nonrheumatic aortic (valve) insufficiency (principal) | CPT/HCPCS: 93306 ==

== ENCOUNTER 2023-03-31 08:53 | Outpatient (AMB) | payer MEDICAID, SELFPAY ==
[2023-03-31 09:15] VITALS: BP 162/80; PULSE 60; BMI 44.5
--- NOTE | 2023-03-31 09:15 | MHC.OFFVIS ---
Intake Vital Signs 03/31/23 09:15 Height 5 ft 5 in Weight 267 lb 10.259 oz BMI 44.5 BP 162/80 H Blood Pressure Location Lt brachial Position Sitting Pulse 60 Intake Visit Reasons: follow up Intake Note: f/u Allergies pork derived (porcine) [Pork derived (porcine)] Allergy (Intermediate, Verified 03/31/23 09:19) HIVES/STOMACH PAIN/THROAT CLOSES ibuprofen [From Motrin] Allergy (Mild, Verified 03/31/23 09:19) GI UPSET aspirin Allergy (Unknown, Verified 03/31/23 09:19) Unknown red dye Allergy (Verified 03/31/23 09:19) Unknown Motrin Allergy (Unknown, Uncoded 09/01/22 09:13) Unknown pork Allergy (Unknown, Uncoded 09/01/22 09:13) Unknown Medication List - Last Reconciled 03/31/23 by OLGA Taylor albuterol sulfate 90 mcg/actuation (ProAir HFA) 2 puffs inhalation QID PRN clonidine HCl 0.1 mg PO BID fluticasone propion-salmeterol 250-50 mcg/dose (Advair Diskus) 1 inh inhalation BID hydroxyzine HCl 50 mg PO TID PRN lisinopril 40 mg PO DAILY loratadine (Claritin) 10 mg PO DAILY melatonin 12 mg PO BEDTIME metoprolol succinate ER 150 mg PO DAILY multivitamin 1 tab PO DAILY nitroglycerin 0.4 mg sublingual Q5M PRN MDD 3 pantoprazole 40 mg PO DAILY sertraline 100 mg PO DAILY trazodone 200 mg PO BEDTIME verapamil ER 180 mg PO BID HPI follow up HPI Details Caitlyn is a 42-year-old female with past medical history of hypertension, smoking, nocturnal hypoxia with home O2 use during sleep, morbid obesity who presents for follow-up. Her last prior visit to our office was 03/10/2021. Today she reports that she has been getting some short pains in her left chest region that can last up to 15 minutes. She has nitroglycerin at home given by another provider which she uses as needed and says that it relieves her discomfort. She has no clear discomfort brought on by exertional activities. She does have some shortness of breath with exertion which she relates to asthma. No palpitations, presyncope, syncope, falls. No PND, orthopnea or edema. 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 She is fatigued this morning as she has not slept yet. She takes her meds as directed. She admits to being mostly sedentary. [facility] Medical History IgA nephropathy Cancer of left kidney Migraine headache Asthma Hypertension Myocardial infarction IgA nephropathy Surgical History Morbid obesity H/O partial nephrectomy H/O right knee surgery H/O: hysterectomy Family History Mother IgA nephropathy Breast cancer Cancer of kidney CVA (cerebral vascular accident) Maternal Uncle Tongue cancer Social History Household Members: Family Housing: House Do you presently have visiting nurse or other home services: No Alcohol intake: never Cigarette Packs Per Day: 1 Cigarettes Per Day: 20.0 service: No Current occupational status: employed Review of Systems Const All systems reviewed & are unremarkable except as noted in HPI and below ENT Denies dizziness Card Reports chest pain, Reports chest pain at rest, Denies chest pain with activity, Denies rapid heart rate, Denies pedal edema, Denies edema, Denies leg edema, Denies lightheadedness, Denies palpitations, Denies dyspnea, Reports dyspnea on exertion and Denies orthopnea Resp Denies cough, Denies dyspnea and Reports dyspnea on exertion GI Denies hematochezia and Denies change in stool character Musc Denies abnormal gait, Denies limited range of motion, Denies muscle cramps, Denies muscle weakness, Denies numbness, Denies radiating pain into limb, Denies stiffness and Denies tingling Neuro Denies abnormal gait, Denies dizziness, Denies numbness and Denies tingling Endo Denies palpitations Physical Exam Vital Signs: Last Vital Signs Pulse 60 03/31/23 09:15 BP 162/80 H 03/31/23 09:15 BMI result Body Mass Index 44.5 Const Other: Morbidly obese General: cooperative, comfortable and no acute distress Orientation/consciousness: patient oriented x3 Neck Neck: Yes normal visual inspection Resp Effort & Inspection: normal respiratory effort Auscultation: clear to auscultation bilaterally, no crackles, no rales, no rhonchi and no wheezes Cardio Jugular venous distension: no JVD Rate: regular rate Rhythm: regular rhythm Heart sounds: S1 normal heart sound present, S2 normal heart sound present, no murmurs and no rubs Neuro General: patient oriented x3 Extrem General: Yes normal to inspection Psych Appearance: grossly normal Mental Status: mental status grossly normal Speech and movement: Normal speech and movement present Office Procedures EKG Details: Today, read by me, normal sinus rhythm, possible left atrial enlargement, LVH, rate 60, QTC 468 millisecond [id number], Complete Assessment & Plan Assessment & Plan (1) Right ventricular dysfunction: Code(s): I51.9 - Heart disease, unspecified Plan: History of morbid obesity and nocturnal hypoxemia leading to increased filling pressures in her heart. Also has history of moderate persistent asthma and smoking. Follows with pulmonology Dr. Trina gibson. Uses O2 1 L during sleep. Echocardiogram done 02/23/2023 shows EF 60-65%, moderate LVH, grade 2 diastolic dysfunction, moderate dilated left atrium, mild aortic regurgitation, RVSP 45 mmHg. Echo from 2020 showed RVSP 55 mmHg. She has no signs of heart failure on examination. Reviewed echo findings with her. Benefit of weight loss reviewed. Increase physical activity as tolerated. Continue with night time O2 use. Blood pressure not optimally controlled. Will add hydralazine 25 mg b.i.d.. She says she was on hydralazine in the past and it made her blood pressure too low. Her dose at that time was 50 mg b.i.d.. Will plan for office visit follow-up in 4-6 weeks to re-evaluate blood pressure, med tolerance. (2) Diastolic dysfunction: Code(s): I51.89 - Other ill-defined heart diseases Plan: Grade 2 diastolic dysfunction on recent echo (3) Chest discomfort: Code(s): R07.89 - Other chest pain Plan: Reports of sharp pains in her left chest region that can last up to 15 minutes. She has taken nitroglycerin with relief. No exertional symptoms. Admits to being mostly sedentary. Cardiac risk factors of hypertension, smoking, morbid obesity, sedentary. Will check a pharmacological nuclear stress test to evaluate for ischemia. She has knee issues and morbid obesity and will be unable to exercise on a treadmill. (4) LVH (left ventricular hypertrophy): Code(s): I51.7 - Cardiomegaly Plan: Moderate LVH on last echo. This is up from mild LVH on echo in 2020. Will work on better blood pressure control (5) Morbid obesity: Code(s): E66.01 - Morbid (severe) obesity due to excess calories Plan: Benefit of weight loss reviewed. She is working on diet control. May benefit from bariatric program referral. (6) Hypertension: Code(s): I10 - Essential (primary) hypertension Qualifiers: Hypertension type: primary hypertension Qualified Code(s): I10 - Essential (primary) hypertension Plan: As above. Not optimally controlled at present. Ordering hydralazine. It does flag that she has a red dye allergy. Spoke with patient's you said she is not allergic to red dyes she is allergic to orange dye. She has taken hydralazine in the past, pink tablets and tolerated them without any allergic reaction. With the orange dyed she has gotten itchy and hives in the past. She will start hydralazine with only half a tablet to see if she has any type of reaction. If she does she will certainly let us know. Emergency care if needed. Orders: Orders NM cardiolite stress test Today E66.01 - Morbid (severe) obesity due to excess calories, I10 - Essential (primary) hypertension, R07.89 - Other chest pain CA lexiscan stress w evan Today E66.01 - Morbid (severe) obesity due to excess calories, I10 - Essential (primary) hypertension, R07.89 - Other chest pain Medications: New hydralazine 25 mg PO BID 30 days 60 tabs 4RF Coding Level of Care Code Est Pt Level 4 (07188) Diagnoses Right ventricular dysfunction I51.9 Diastolic dysfunction I51.89 Chest discomfort R07.89 LVH (left ventricular hypertrophy) I51.7 Morbid obesity E66.01 Primary hypertension I10 Hypertension type: primary hypertension CPT Codes EKG - CPT: [id number], Complete ([id number]) Time Spent (min) 28
== END 2023-03-31 09:54 | disposition home or self-care (01) ==
PROVIDERS: PCP Nurse Practitioner Primary Care; Visit Provider Nurse Practitioner Family
DX: I51.9 Heart disease, unspecified (principal); I51.89 Other ill-defined heart diseases; R07.89 Other chest pain; I51.7 Cardiomegaly; E66.01 Morbid (severe) obesity due to excess calories; I10 Essential (primary) hypertension
CPT/HCPCS: 93010; 99214

== ENCOUNTER → 2023-03-31 08:53 | Outpatient (BNVA) | payer MEDICAID, SELFPAY | PROVIDERS: PCP Nurse Practitioner Primary Care; Visit Provider Nurse Practitioner Family | DX: I11.9 Hypertensive heart disease without heart failure (principal); R07.89 Other chest pain; E66.01 Morbid (severe) obesity due to excess calories; Z68.41 Body mass index [BMI] 40.0-44.9, adult | CPT/HCPCS: 93005; 99212 ==

== ENCOUNTER 2023-04-18 13:14 | Inpatient (IN) | payer MEDICAID, SELFPAY ==
--- NOTE | ~2023-04-18 | CT_ITS ---
EXAMINATION: CT head/brain wo IV con CLINICAL INFORMATION: Reason for Exam intermittent visual loss COMPARISON: None. TECHNIQUE: Contiguous axial imaging was performed from the skull base to vertex without intravenous contrast. Sagittal and coronal reformatted images were obtained. This CT examination was performed using dose optimization techniques as appropriate, variously including the following: * Automated exposure control * Adjustment of mA and/or kV according to patient size (this includes techniques or standardized protocols for targeted exams where dose is matched to indication/reason for exam; i.e. extremities or head) Use of iterative reconstruction technique DLP: 850 mGy-cm FINDINGS: The ventricles and sulci are normal in size and configuration without significant volume loss or hydrocephalus. There is no abnormal attenuation within the brain parenchyma. No territorial loss of paul-white differentiation. No acute intracranial hemorrhage or extra-axial fluid collection. No mass lesion, significant mass effect, or herniation pattern. Bilateral proptosis on the basis of increased intraorbital fat deposition which may be seen in the setting of thyroid eye disease and can be correlated with thyroid function tests. The extraocular muscles are not particularly enlarged. Presumably vascular structure within the intraconal lateral left orbit contacting the inferior rectus muscle along its lateral margin. Mild bilateral maxillary sinus mucosal disease. No mastoid effusion. Osseous structures are intact. CT/CT head/brain wo IV con IMPRESSION: No acute intracranial abnormality. Bilateral proptosis on the basis of increased intraorbital fat deposition which may be seen in the setting of thyroid eye disease and can be correlated with thyroid function tests. The extraocular muscles are not particularly enlarged. Presumably vascular structure within the intraconal lateral left orbit contacting the inferior rectus muscle along its lateral margin.
--- NOTE | ~2023-04-18 | MR_ITS ---
EXAMINATION: MR BRAIN WITHOUT AND WITH CONTRAST CLINICAL INFORMATION: Blurred vision. Papilledema. COMPARISON: None. TECHNIQUE: Multiplanar, multisequence imaging of the brain was performed before and after the intravenous administration of 10 mL of Gadavist. Slightly limited study with motion artifacts. FINDINGS: There is a 1 cm T2 hyperintense focus of signal abnormality in the anterior right frontal periventricular white matter. Nonspecific mild symmetric posterior periventricular white matter signal changes are also noted. There is no abnormal parenchymal or leptomeningeal enhancement. No diffusion abnormalities are identified to suggest an acute infarct. The ventricles are normal in size. No mass effect or midline shift is seen. No extra-axial fluid collections are seen. The brainstem and cerebellum are normal. The gradient refocused acquisition demonstrates no pathologic magnetic susceptibility artifact to indicate underlying acute or chronic blood products. The craniovertebral junction and midline structures are normal. The marrow is diffusely somewhat low in signal on T1-weighted imaging. The major intracranial flow voids at the level of the [place] are preserved. The dural venous sinus flow voids are maintained. Mild amount of fluid noted in the dependent mastoid air cells. There is mild mucosal thickening in the maxillary and ethmoid sinuses. MR/MR head/brain wo/w con IMPRESSION: Slightly limited exam with motion artifacts. Nonspecific 1 cm discrete focus of nonenhancing signal in the right frontal periventricular white matter with additional fairly symmetric mild signal changes in the posterior periventricular white matter of both hemispheres. No abnormal enhancement. No acute process. Generalized signal abnormality within the bone marrow. This finding is nonspecific and possible etiologies include stimulated red marrow, as can be seen with smoking, iron deficiency, and chronic infection. Recommend correlation with clinical history and consider a CBC analysis for further workup.
--- NOTE | ~2023-04-18 | FL_ITS ---
Fluoroscopic lumbar puncture Indication: Increased intraorbital pressure. Of note, patient unable to lay prone for the examination/procedure. Risks and benefits and possible complications were discussed with the patient and the consent form was signed. Patient was placed prone on the fluoroscopy table. The back was prepped and draped in routine sterile fashion. Betadine was used as a skin antiseptic. Utilizing fluoroscopic guidance, the L3-4 level was accessed with a 22 gauge Sprotte spinal needle via the interlaminar space, and clear CSF fluid passively obtained at the needle hub. Opening pressure was 32 cm H2O, However this was obtained with the patient in the lateral position and is likely not entirely accurate. 11 cc of fluid was passively obtained and sent for analysis. Closing pressure was 18 cm H2O. The needle was removed without immediate complications. Total fluoroscopy time: 1.2 min FL/FL guided lumbar puncture LP Impression: 1. Successful Fluoroscopic lumbar puncture. Removal of 11 mL clear CSF. 2. Elevated opening pressure 32 cm H2O, although obtained with patient in lateral position secondary to habitus. This could be falsely elevated. 3. Closing pressure 18 cm H2O, also obtained lateral. This procedure was performed by Edi Lloyd PA-C and supervised by Dr. Patel.
[2023-04-18 13:28] VITALS: BP 190/92; PULSE 53; RESP 20; O2SAT 97; BMI 43.9
--- NOTE | 2023-04-18 13:28 | ED.GENADULT ---
HPI - General Adult General Chief complaint: Eye Problems Stated complaint: HBP/L eye vision loss Time Seen by Provider: 04/18/23 14:23 Source: patient Mode of arrival: ambulatory History of Present Illness HPI narrative: 42-year-old female who presents with known uncontrolled hypertension currently on 4 medications, she went to the customer service representative teller today after year of intermittent vision loss, customer service representative teller reports that patient has extensive hypertensive retinopathy and referred the patient to the emergency room without any deficits at the time of referral for MRI and MRV. At this time patient denies any visual loss, has no speech difficulties and otherwise no shortness of breath/ chest pain / palpitations. Related Data Home Medications Medication Instructions Recorded Confirmed albuterol sulfate 90 mcg/actuation 2 puff inhalation QID PRN 04/11/20 03/31/23 aerosol inhaler (ProAir HFA) Shortness Of Breath Or Wheezing hydroxyzine HCl 50 mg tablet 50 mg PO TID PRN Anxiety 04/11/20 03/31/23 loratadine 10 mg tablet (Claritin) 10 mg PO DAILY 04/11/20 03/31/23 multivitamin 1 tab PO DAILY 04/11/20 03/31/23 nitroglycerin 0.4 mg sublingual 0.4 mg sublingual Q5M PRN Chest 04/11/20 03/31/23 tablet Pain pantoprazole 40 mg tablet,delayed 40 mg PO DAILY 04/11/20 03/31/23 release sertraline 50 mg tablet 100 mg PO DAILY 04/11/20 03/31/23 melatonin 3 mg tablet 12 mg PO BEDTIME 07/29/20 03/31/23 metoprolol succinate 100 mg 150 mg PO DAILY 07/29/20 03/31/23 tablet,extended release 24 hr trazodone 100 mg tablet 200 mg PO BEDTIME 07/29/20 03/31/23 verapamil 180 mg 24 hr 180 mg PO BID 07/29/20 03/31/23 capsule,extended release clonidine HCl 0.1 mg tablet 0.1 mg PO BID 03/31/23 03/31/23 atorvastatin 20 mg tablet 20 mg PO QAM 04/18/23 04/18/23 lisinopril 10 mg tablet 20 mg PO DAILY 04/18/23 04/18/23 nicotine (polacrilex) 2 mg gum 2 mg PO NEEDED 04/18/23 04/18/23 Previous Rx's Medication Instructions Recorded fluticasone 250 mcg-salmeterol 50 1 inh inhalation BID #60 ea 10/21/22 mcg/dose blistr powdr for inhalation (Advair Diskus) hydralazine 25 mg tablet 25 mg PO BID 30 days #60 tabs 03/31/23 Allergies Allergy/AdvReac Type Severity Reaction Status Date / Time pork derived (porcine) Allergy Intermediate HIVES/STOMACH Verified 03/31/23 09:19 [Pork derived (porcine)] PAIN/THROAT CLOSES ibuprofen [From Motrin] Allergy Mild GI UPSET Verified 03/31/23 09:19 aspirin Allergy Unknown Unknown Verified 03/31/23 09:19 red dye Allergy Unknown Verified 03/31/23 09:19 Motrin Allergy Unknown Unknown Uncoded 09/01/22 09:13 pork Allergy Unknown Unknown Uncoded 09/01/22 09:13 Review of Systems Review of Systems: Pertinent positives and negatives as stated in HPI [facility] Past Medical History Source: nursing notes reviewed Medical History IgA nephropathy Cancer of left kidney Migraine headache Asthma Hypertension Myocardial infarction IgA nephropathy Surgical History Morbid obesity H/O partial nephrectomy H/O right knee surgery H/O: hysterectomy Family History Family History Mother IgA nephropathy Breast cancer Cancer of kidney CVA (cerebral vascular accident) Maternal Uncle Tongue cancer Social History Social History Household Members: Family Housing: House Do you presently have visiting nurse or other home services: No Alcohol intake: never Cigarette Packs Per Day: 1 Cigarettes Per Day: 20.0 Advance Directives: No Advance Directives Information Provided: Yes service: No Current occupational status: employed Physical Exam ED Vital Signs: Vital Signs - 24 hr 04/18/23 13:28 04/18/23 14:32 04/18/23 14:32 Temperature 98.2 F Pulse Rate 53 58 62 Respiratory Rate 20 16 14 Blood Pressure 190/92 H 157/77 H 155/76 H Pulse Oximetry 97 95 96 Oxygen Delivery Method Room Air Room Air Room Air 04/18/23 17:04 Temperature Pulse Rate 60 Respiratory Rate 18 Blood Pressure 193/101 H Pulse Oximetry 95 Oxygen Delivery Method Room Air BMI result Body Mass Index 43.9 VITAL SIGNS: Reviewed. GENERAL: Elevated BMI,Well developed, well nourished, in no acute distress. HEAD: Normocephalic/atraumatic EYES: PERRLA, EOMI EARS: Ext canals without abnormality NOSE: Nares patent bilateral OROPHARYNX: no oral lesions noted, posterior pharynx clear NECK: Supple, no adenopathy LUNGS: Normal breath sounds. No adventitious sounds or accessory muscle use. SpO2<96> CARDIOVASCULAR: Regular rate and rhythm without noted murmurs ABDOMEN: Soft, non-tender, non-distended with bowel sounds. MUSCULOSKELETAL: No tenderness, deformities, or effusions noted on gross inspection. EXTREMITIES: No cyanosis, clubbing or edema. SKIN: Inspection of the skin reveals no rashes NEUROLOGIC: Alert and oriented x 4. Strength and sensation to light touch were grossly intact x 4, no facial asymmetry, no pronator drift, cranial nerves 2-12 are grossly intact.. Course Course Course Narrative: This is an RME: Additional HPI, ROS, PE not included below will be deferred to primary provider. This is a 17-[id number]-female, with a hx of hypertension, asthma, IgA nephropathy, migraine, and MS, presenting to the emergency department with complaints of right eye blurred vision x 1 year. Eye physician was evaluating patient today, saw that the retinal nerves were swollen , her concern was that something else was going on and was told to come to the emergency department. She had an eye MRI, did not bring the report here today. BP elevated at 190/92. Headache and lightheadedness since eye exam, unsure if this is due to the eye exam. Plan: Labs, UA Medical Decision Making Medical Decision Making MDM Narrative: 42-year-old female with history and clinical presentation consistent with long-standing uncontrolled hypertension and chronic/intermittent vision loss of the left eye. Patient is completely asymptomatic for vision at this time and otherwise nonfocal. blood pressure on each upper extremity is symmetric. I reviewed all investigations hematologic indices negative for leukocytosis or left shift, no anemia or thrombocytopenia. Chemistry indices negative for ENRIKE and there is no electrolyte or liver enzyme abnormalities. 1725: I discussed the case with Dr Hidalgo who recommends noncontrast head CT, LP with opening pressure, MRI/ MRV tomorrow and admission. Signed out to Dr Beckwith Differential Diagnosis Differential Diagnoses: The differential diagnosis associated with the presentation includes Please see the discussion above Admission/Observation Consideration of admission/observation: Escalation of care including admission/observation considered please see the discussion above Lab Data MDM Lab Attestation statement: I reviewed the patient's lab results. Please see the discussion above 04/18/23 14:12 04/18/23 14:12 Labs: Lab Results 04/18/23 Range/Units 14:12 WBC 10.5 (4.8-10.8) X10*3/uL RBC 4.97 (4.20-5.50) X10*6/uL Hgb 13.3 (12.0-16.0) g/dl Hct 42.1 (37.0-47.0) % MCV 84.7 (80.0-98.0) fL MCH 26.8 L (27.0-33.0) pg MCHC 31.6 (31.0-35.0) g/dl RDW 17.0 H (11.0-16.0) % Plt Count 298 (160-400) X10*3/uL MPV 10.9 (9.4-12.3) fL Immature Gran % (Auto) 0.2 (0.0-0.4) % Neut % (Auto) 61.6 (45-73) % Lymph % (Auto) 28.1 (20-40) % [place] % (Auto) 8.0 (2-11) % Eos % (Auto) 1.2 (0-4) % Baso % (Auto) 0.9 (0-2) % Lymph # (Auto) 2.9 (1.2-4.9) X10*3/uL [place] # (Auto) 0.8 (0.1-1.2) X10*3/uL Eos # (Auto) 0.1 (0.0-0.4) X10*3/uL Baso # (Auto) 0.1 (0.0-0.2) X10*3/uL Abs Immat Gran (auto) 0.02 (0.00-0.03) X10*3/uL Absolute Neuts (auto) 6.4 (2.0-8.3) x10*3/uL Absolute Nucleated RBC 0.000 (0.0-0.012) X10*3/uL Nucleated RBC % (auto) 0.0 (0.0-0.2) /100WBC Sodium 141 (135-145) mmol/L Potassium 3.9 (3.3-5.1) mmol/L Chloride 102 (96-108) mmol/L Carbon Dioxide 28 (22-29) mmol/L Anion Gap 15 (12-20) BUN 12 (9-16) mg/dL Creatinine 1.23 (0.5-1.4) mg/dL Estim Creat Clear Calc 77.2 Estimated GFR 48 Random Glucose 144 H (60-115) mg/dL Calcium 9.3 D (8.4-10.2) mg/dL Total Bilirubin 0.4 (0.0-1.0) mg/dL Direct Bilirubin 0.1 (0.0-0.5) mg/dL AST 20 (5-31) U/L ALT 19 (0-31) U/L Alkaline Phosphatase 78 (39-117) U/L Total Protein 8.1 H (6.5-8.0) g/dL Albumin 3.9 (3.5-5.0) g/dL External Record Review External record reviewed: Outpatient record and Prior outpatient labs Chronic Conditions Patient?s care impacted by: Hypertension Discharge Plan Discharge Clinical Impression: Uncontrolled hypertension, Changes in vision Patient Disposition: Admitted As Inpatient Prescriptions: No Action verapamil 180 mg Capsule,Ext Rel. Pellets 24 Hr 180 mg PO BID trazodone 100 mg Tablet 200 mg PO BEDTIME melatonin 3 mg Tablet 12 mg PO BEDTIME metoprolol succinate 100 mg Tablet Extended Release 24 Hr 150 mg PO DAILY multivitamin Tablet 1 tab PO DAILY hydroxyzine HCl 50 mg Tablet 50 mg PO TID PRN (Reason: Anxiety) pantoprazole 40 mg Tablet,Delayed Release (Dr/Ec) 40 mg PO DAILY nitroglycerin 0.4 mg Tablet, Sublingual 0.4 mg SUBLINGUAL Q5M MDD 3 PRN (Reason: Chest Pain) albuterol sulfate [ProAir HFA] 90 mcg/actuation Hfa Aerosol Inhaler 2 puff INHALATION QID PRN (Reason: Shortness Of Breath Or Wheezing) lisinopril 40 mg Tablet 40 mg PO DAILY Hold Instructions: Resume on 08/08/20. Get your blood work checked next week and confirm with kidney doctors before starting sertraline 50 mg Tablet 100 mg PO DAILY loratadine [Claritin] 10 mg Tablet 10 mg PO DAILY fluticasone propion-salmeterol [Advair Diskus] 250-50 mcg/dose blister with device 1 inh inhalation BID Qty: 60 6RF clonidine HCl 0.1 mg tablet 0.1 mg PO BID hydralazine 25 mg tablet 25 mg PO BID 30 Days Qty: 60 4RF
[2023-04-18 14:18] LABS: Basophils Absolute Auto 0.1 X10*3/uL (0.0-0.2); Basophils Percent Auto 0.9 % (0-2); Eosinophils Absolute Auto 0.1 X10*3/uL (0.0-0.4); Eosinophils Percent Auto 1.2 % (0-4); Hematocrit 42.1 % (37.0-47.0); Hemoglobin 13.3 g/dl (12.0-16.0); Imm Gran Abs Auto 0.02 X10*3/uL (0.00-0.03); Imm Gran Pct Auto 0.2 % (0.0-0.4); Lymphocytes Absolute Auto 2.9 X10*3/uL (1.2-4.9); Lymphocytes Percent Auto 28.1 % (20-40); MANUAL DIFF FLAG NO; Mean Corpuscular HGB Conc 31.6 g/dl (31.0-35.0); Mean Corpuscular Hemoglobin 26.8 pg (27.0-33.0); Mean Corpuscular Volume 84.7 fL (80.0-98.0); Mean Platelet Volume 10.9 fL (9.4-12.3); Monocytes Absolute Auto 0.8 X10*3/uL (0.1-1.2); Neutrophils Absolute Auto 6.4 x10*3/uL (2.0-8.3); Neutrophils Percent Auto 61.6 % (45-73); Platelet Count 298 X10*3/uL (160-400); Red Blood Count 4.97 X10*6/uL (4.20-5.50); White Blood Count 10.5 X10*3/uL (4.8-10.8)
[2023-04-18 14:32] VITALS: BP 155/76; BP 157/77; PULSE 58; PULSE 62; RESP 14; RESP 16; TEMP 36.8; O2SAT 95; O2SAT 96
[2023-04-18 14:44] LABS: Alanine Aminotransferase 19 U/L (0-31); Albumin Level 3.9 g/dL (3.5-5.0); Alkaline Phosphatase 78 U/L (39-117); Anion Gap 15 (12-20); Aspartate Amino Transferase 20 U/L (5-31); Bilirubin Direct 0.1 mg/dL (0.0-0.5); Bilirubin Total 0.4 mg/dL (0.0-1.0); Blood Urea Nitrogen 12 mg/dL (9-16); Calcium 9.3 mg/dL (8.4-10.2); Carbon Dioxide 28 mmol/L (22-29); Chloride 102 mmol/L (96-108); Creatinine Clr Calc Pharmacy 77.2; Estimated Glomerular Filt Rate 48; Glucose Random 144 mg/dL (60-115); Potassium 3.9 mmol/L (3.3-5.1); Sodium 141 mmol/L (135-145); Total Protein 8.1 g/dL (6.5-8.0)
--- NOTE | 2023-04-18 14:47 | PC.NURSE ---
patient is resting on stretcher comfortably, offers no complaints at this time, respirations even and unlabored. Endorses mild headache, some blurry vision and some light sensitivity. Pts vision is otherwise well, able to see both up close and far away with no issue at this time. MD aware of patients mildly elevated blood pressure.
[2023-04-18 17:04] VITALS: BP 193/101; PULSE 60; RESP 18; O2SAT 95
[2023-04-18 17:20] LABS: Thyroid Stimulating Hormone 0.65 uIU/mL (0.32-4.0)
[2023-04-18 17:34] VITALS: BP 190/90; PULSE 60; RESP 16; TEMP 36.7; O2SAT 95
--- NOTE | 2023-04-18 17:41 | PHA.MEDREC ---
Pharmacy Consult ? Medication Reconciliation Pharmacy has completed the medication reconciliation. Patient confirmed medicaitons. Reported verapamil as twice a day. Reports usually taking 2 tablet of trazodone but sometimes 1 tablet. Patient prescription for metoprolol ER 100 mg tablet is 1.5 tab however patient reports she only takes 1 tab instead. Haven Lord, PharmD
[2023-04-18 18:02] LABS: Erythrocyte Sedimentation Rate 17 MM/HR (0-20)
[2023-04-18 19:31] VITALS: BP 201/99; PULSE 65; RESP 14; TEMP 36.9; O2SAT 95
[2023-04-18 19:47] LABS: Appearance Urine Cloudy; Color Urine Yellow; Glucose Urine UA Negative (Negative); Leukocyte Esterase Urine Negative (Negative); Nitrite Urine Negative (Negative); PH 6.5 (5.0-9.0); UMIC TRIGGER UACC YES; Urine Blood Negative (Negative); Urine Ketones Negative (Negative); Urine Protein 300 (3+) mg/dL (Neg-Trace)
[2023-04-18 19:50] LABS: Bacteria Urine 2+ (None Seen); RBC Urine 0-2 /HPF (0-2); WBC Urine 0-5 /HPF (0-5)
[2023-04-18] MEDS: cloNIDine HCL 0.1 MG TABLET PO (22:14)
[2023-04-18] MEDS: traZODone HCL 100 MG TABLET 200 MG PO (22:14)
[2023-04-18] MEDS: Metoprolol Succinate ER 100 MG TAB.ER.24H PO (22:14)
[2023-04-18] MEDS: hydrALAZINE HCl 25 MG TABLET PO (22:14)
[2023-04-18] MEDS: hydrOXYzine HCL 50 MG TABLET PO (22:14)
[2023-04-18 22:18] VITALS: BP 169/76; PULSE 65; RESP 18; TEMP 36.8; O2SAT 92
[2023-04-18] MEDS: VerapamiL HCL SR 180 MG TABLET.ER PO (22:50)
--- NOTE | 2023-04-18 23:30 | PM.IMHP ---
History of Present Illness Date of Service: 04/18/23 Chief Complaint: blurry vision, high BP A 42 years old lady with CKD3, HTN, depression, GERD who presented to ED as referral from Opthalmology for eval of blurry vision and reported vision loss. The patient denies complete loss of vision at any point but reports having episodes of blurry vision that lasts up to 30 minutes on occasion or a feeling like a cloud infront of her eyes. these symptoms associated with headache most times. she was by dr Hidalgo once before and diagnosed with migraine. Opth today did eye exam and reported Papilloedema so he asked her to get further evaluation and brain images like MRI\MRV. Her blood pressure was found elevated as well with SBP up to 200s. improved with her home medications but remains elevated. she reports episodes of low blood pressure at home and she also misses taking her meds on occasions. No chest pain, palpitations, SOB, nausea, vomiting, diarrhea or urinary symptoms. vision is normal at time of interview and she reports that last time she had similar event was 2 days prior to presentation today. Review of Systems Review of Systems: No fever, chills or weakness No chest pain, palpitation No shortness of breath or coughing No abdominal pain, nausea or vomiting No urinary symptoms No any rash or wounds [facility] Medical History IgA nephropathy Cancer of left kidney Migraine headache Asthma Hypertension Myocardial infarction IgA nephropathy Family History Mother IgA nephropathy Breast cancer Cancer of kidney CVA (cerebral vascular accident) Maternal Uncle Tongue cancer Surgical History Morbid obesity H/O partial nephrectomy H/O right knee surgery H/O: hysterectomy Social History Household Members: Family Housing: House Do you presently have visiting nurse or other home services: No Alcohol intake: never Cigarette Packs Per Day: 1 Cigarettes Per Day: 20.0 Smoked in Last 30 Days: No Use of substances other than those prescribed or required for medical reasons: No Advance Directives: No Advance Directives Information Provided: Yes service: No Current occupational status: employed Meds Allergies Allergy/AdvReac Type Severity Reaction Status Date / Time pork derived (porcine) Allergy Intermediate HIVES/STOMACH Verified 03/31/23 09:19 [Pork derived (porcine)] PAIN/THROAT CLOSES ibuprofen [From Motrin] Allergy Mild GI UPSET Verified 03/31/23 09:19 aspirin Allergy Unknown Unknown Verified 03/31/23 09:19 red dye Allergy Unknown Verified 03/31/23 09:19 Motrin Allergy Unknown Unknown Uncoded 09/01/22 09:13 pork Allergy Unknown Unknown Uncoded 09/01/22 09:13 Active Medications: Current Medications Albuterol Sulfate (Albuterol Sulfate 90 Mcg 8 Gm Inhaler) 2 puff INHALE QID PRN PRN Reason: Shortness Of Breath Or Wheezing Atorvastatin Calcium (Atorvastatin Calcium 20 Mg Tablet) 20 mg PO DAILY [facility] Clonidine HCl (Clonidine Hcl 0.1 Mg Tablet) 0.1 mg PO BID [facility]; Protocol Last Admin: 04/18/23 22:14 Dose: 0.1 mg Hydralazine HCl (Hydralazine Hcl 25 Mg Tablet) 25 mg PO BID OLINDA; Protocol Last Admin: 04/18/23 22:14 Dose: 25 mg Hydroxyzine HCl (Hydroxyzine Hcl 50 Mg Tablet) 50 mg PO BID [facility] Last Admin: 04/18/23 22:14 Dose: 50 mg Lisinopril (Lisinopril 20 Mg Tablet) 20 mg PO DAILY [facility]; Protocol Melatonin (Melatonin 3 Mg Tablet) 6 mg PO BEDTIME PRN PRN Reason: Insomnia Metoprolol Succinate (Metoprolol Succinate Er 100 Mg Tab.Er.24h) 100 mg PO BEDTIME OLINDA; Protocol Last Admin: 04/18/23 22:14 Dose: 100 mg Nicotine Polacrilex (Nicotine Polacrilex 2 Mg Gum) 2 mg BUCCAL Q2H PRN PRN Reason: Nicotine Cravings Omeprazole (Omeprazole 20 Mg Capsule.Dr) 20 mg PO DAILY@0630 [facility] Sertraline HCl (Sertraline Hcl 100 Mg Tablet) 100 mg PO DAILY [facility] Trazodone HCl (Trazodone Hcl 100 Mg Tablet) 200 mg PO BEDTIME OLINDA Last Admin: 04/18/23 22:14 Dose: 200 mg Verapamil HCl (Verapamil Hcl Sr 180 Mg Tablet.Er) 180 mg PO BID OLINDA; Protocol Last Admin: 04/18/23 22:50 Dose: 180 mg Home Medications Medication Instructions Recorded Confirmed Last Taken Type albuterol sulfate 90 mcg/actuation 2 puff inhalation QID PRN 04/11/20 04/18/23 Unknown History aerosol inhaler (ProAir HFA) Shortness Of Breath Or Wheezing hydroxyzine HCl 50 mg tablet 50 mg PO BID Anxiety 04/11/20 04/18/23 04/18/23 History loratadine 10 mg tablet (Claritin) 10 mg PO DAILY 04/11/20 04/18/23 04/18/23 History nitroglycerin 0.4 mg sublingual 0.4 mg sublingual Q5M PRN Chest 04/11/20 04/18/23 Unknown History tablet Pain pantoprazole 40 mg tablet,delayed 40 mg PO DAILY 04/11/20 04/18/23 04/18/23 History release sertraline 50 mg tablet 100 mg PO DAILY 04/11/20 04/18/23 04/18/23 History metoprolol succinate 100 mg 100 mg PO BEDTIME 07/29/20 04/18/23 04/17/23 History tablet,extended release 24 hr trazodone 100 mg tablet 100 - 200 mg PO BEDTIME 07/29/20 04/18/23 04/17/23 History verapamil 180 mg 24 hr 180 mg PO BID 07/29/20 04/18/23 04/18/23 History capsule,extended release clonidine HCl 0.1 mg tablet 0.1 mg PO BID 03/31/23 04/18/23 04/18/23 History atorvastatin 20 mg tablet 20 mg PO QAM 04/18/23 04/18/23 04/18/23 History lisinopril 10 mg tablet 20 mg PO DAILY 04/18/23 04/18/23 04/18/23 History melatonin 5 mg tablet 5 mg PO BEDTIME PRN Insomnia 04/18/23 04/18/23 Unknown History nicotine (polacrilex) 2 mg gum 2 mg PO NEEDED 04/18/23 04/18/23 Unknown History omega 3-iwn-pvo-fish oil 1,000 mg 1 cap PO DAILY 04/18/23 04/18/23 04/18/23 History (120 mg-180 mg) capsule (Fish Oil) Physical Exam Vital Signs and Narrative: Vital Signs: Last Vital Signs Temp 98.2 F 04/18/23 22:18 Pulse 65 04/18/23 22:18 Resp 18 04/18/23 22:18 BP 169/76 H 04/18/23 22:18 Pulse Ox 92 04/18/23 22:18 O2 Del Method Room Air 04/18/23 22:18 BMI result Body Mass Index 43.9 Const: Other: Constitutional : Awake, interactive, morbidly obese, not in distress Neck : Normal inspection, Supple Cardiovascular : RRR, no JVP, no lower extremity edema Respiratory : good bilateral air entry, no crackles, wheezes or rhonchi Gastrointestinal: soft, lax, Normal bowel sounds, Non tender Skin : Warm, Dry Neurological : Alert & oriented x3, No focal deficit , CN 2-12 within normal Results Labs 04/18/23 14:12 04/18/23 14:12 Labs: Laboratory Results - last 24 hr 04/18/23 04/18/23 14:12 19:37 MCV 84.7 MCH 26.8 L MCHC 31.6 RDW 17.0 H Plt Count 298 MPV 10.9 Immature Gran % (Auto) 0.2 Neut % (Auto) 61.6 Lymph % (Auto) 28.1 [place] % (Auto) 8.0 Eos % (Auto) 1.2 Baso % (Auto) 0.9 Lymph # (Auto) 2.9 [place] # (Auto) 0.8 Eos # (Auto) 0.1 Baso # (Auto) 0.1 Abs Immat Gran (auto) 0.02 Absolute Neuts (auto) 6.4 Absolute Nucleated RBC 0.000 Nucleated RBC % (auto) 0.0 ESR 17 Anion Gap 15 Estim Creat Clear Calc 77.2 Estimated GFR 48 Random Glucose 144 H Calcium 9.3 D Total Bilirubin 0.4 Direct Bilirubin 0.1 AST 20 ALT 19 Alkaline Phosphatase 78 Total Protein 8.1 H Albumin 3.9 TSH 0.65 Urine Color Yellow Urine Appearance Cloudy Urine pH 6.5 Ur Specific [place] 1.020 Urine Protein 300 (3+) H Urine Glucose (UA) Negative Urine Ketones Negative Urine Blood Negative Urine Nitrite Negative Ur Leukocyte Esterase Negative Urine RBC 0-2 Urine WBC 0-5 Ur Squamous Epith Cells 11-20 Urine Bacteria 2+ Hyaline Casts 3-5 Imaging Radiologist's Impressions: Impressions Head CT 10/30/23 18:04 IMPRESSION: No acute intracranial abnormality. Bilateral proptosis on the basis of increased intraorbital fat deposition which may be seen in the setting of thyroid eye disease and can be correlated with thyroid function tests. The extraocular muscles are not particularly enlarged. Presumably vascular structure within the intraconal lateral left orbit contacting the inferior rectus muscle along its lateral margin. Assessment and Plan (1) Changes in vision: Status: Acute (2) Uncontrolled hypertension: Status: Acute Plan A 42 years old lady with CKD3, HTN, depression, GERD who presented to ED as referral from Opthalmology for eval of blurry vision and reported vision loss. Papilloedema records in her file. Head CT negative for any acute findings will get neurology evaluation MRI ordered Temporary blurry vision could be related to migraine, Pseudotumer cerebri Neuro to eval, IR to do LP if needed to confirm Neurochecks HTN urgency Improved with PO meds follow BP Hydralazine, Verapamil, Lisinopril and Clonidine. can increase as tolerated HLD Statin DVT PPx Lovenox Time Spent With Patient Time: Total time managing care of this patient today ____ minutes. Quality Stroke Does the patient have a stroke diagnosis?: No VTE Prior VTE?: No VTE Risk Level:: Medical - moderate - high VTE Device Contraindication: Treatment Not Indicated VTE Drug Contraindication: N/A - Med Ordered
--- NOTE | 2023-04-18 23:37 | PC.NURSE ---
Pt alert and oriented, calm and cooperative and in no acute distress. Vitals- temp 98.2, pulse 65, bp 169/76 (107), o2- 92%. PT placed on 2L NC. PT reports she used 2l at bedtime at home. Medications administered as per AUG. PT placed on conveyor monitor as it was not in place during this RNs assessment. PT requested and provided tonya crackers and saltines. Bed locked in lowest position, Call rodríguez within reach. Plan of care ongoing.
[2023-04-19] VITALS (10 sets, daily range): BP systolic 110–191; BP diastolic 68–104; PULSE 50–74; RESP 16–20; TEMP 36.1–37.1; O2SAT 93–98; BMI 44.6
--- NOTE | 2023-04-19 04:56 | PC.NURSE ---
Patient belonging completed. Medications placed in sealed envelope. Paperwork signed by patient and this RN. Report given to accepting unit. PT transferred by clinical technologist
[2023-04-19] MEDS: Omeprazole 20 MG CAPSULE.DR PO (05:30)
[2023-04-19] MEDS: Acetaminophen 325 MG TABLET 650 MG PO ×2 (08:04→19:57)
[2023-04-19] MEDS: Enoxaparin Sodium 40 MG/0.4 ML SYRINGE SUBCUT (08:33)
[2023-04-19] MEDS: cloNIDine HCL 0.1 MG TABLET PO ×2 (08:34→19:56)
[2023-04-19] MEDS: Loratadine 10 MG TABLET PO (08:34)
[2023-04-19] MEDS: VerapamiL HCL SR 180 MG TABLET.ER PO ×2 (08:34→19:56)
[2023-04-19] MEDS: hydrOXYzine HCL 50 MG TABLET PO ×2 (08:35→19:57)
[2023-04-19] MEDS: Sertraline HCL 100 MG TABLET PO (08:35)
[2023-04-19] MEDS: lisinopriL 20 MG TABLET PO (08:35)
[2023-04-19] MEDS: Atorvastatin Calcium 20 MG TABLET PO (08:36)
[2023-04-19] MEDS: hydrALAZINE HCl 25 MG TABLET PO ×2 (08:36→20:00)
--- NOTE | 2023-04-19 08:47 | MHC.CM.PN ---
CM met with Patient at bedside and addressed DUPONT with her, providing Patient with the original and placing a copy on the chart. Patient lives in a townhouse with her /HCP, adult Daughter and 1 month old Granddaughter and she is functionally independent and working. Home/self care is the goal and CM has initiated and will follow for dc planning. PCP is Dr. Niki Allen.
--- NOTE | 2023-04-19 10:08 | MHC.CM.PN ---
Per RN/UR/CM, Patient has been switched from OBSERVATION to INPATIENT.
--- NOTE | 2023-04-19 10:34 | P.CNNE_ITS ---
History of Present Illness Data of Consult Service Date: 04/19/23 Primary Care Provider: Niki Allen NP HPI Reason for consult: Blurred vision 2-3X/ wk for 6 months and headache This is a 42 years old woman with CKD3, HTN, depression, GERD who was referred to the ER from Opthalmology for eval of blurry vision and reported vision loss. She reports having episodes of blurry vision that lasts up to 30 minutes , currently occurring every other day frequently not with headaches with a cloud in front of her eyes, on eor both , occasionally also associated with headache. She was by Dr Hidalgo once before and diagnosed with migraine. Opththalmology did eye exam and reported papilledema so he asked her to get further evaluation and brain images. Review of Systems 2 Review of Systems: No fever, chills or weakness No chest pain, palpitation No shortness of breath or coughing No abdominal pain, nausea or vomiting No urinary symptoms No any rash or wounds PMFSH Past Medical History Medical History IgA nephropathy Cancer of left kidney Migraine headache Asthma Hypertension Myocardial infarction IgA nephropathy Family History Family History Mother IgA nephropathy Breast cancer Cancer of kidney CVA (cerebral vascular accident) Maternal Uncle Tongue cancer Surgical History Surgical History Morbid obesity H/O partial nephrectomy H/O right knee surgery H/O: hysterectomy Social History Social History Household Members: Family Housing: House Do you presently have visiting nurse or other home services: No Alcohol intake: never Cigarette Packs Per Day: 1 Cigarettes Per Day: 20.0 Smoked in Last 30 Days: No Use of substances other than those prescribed or required for medical reasons: No Advance Directives: No Advance Directives Information Provided: Yes service: No Current occupational status: employed Meds Allergies Allergy/AdvReac Type Severity Reaction Status Date / Time pork derived (porcine) Allergy Intermediate HIVES/STOMACH Verified 03/31/23 09:19 [Pork derived (porcine)] PAIN/THROAT CLOSES ibuprofen [From Motrin] Allergy Mild GI UPSET Verified 03/31/23 09:19 aspirin Allergy Unknown Unknown Verified 03/31/23 09:19 red dye Allergy Unknown Verified 03/31/23 09:19 Motrin Allergy Unknown Unknown Uncoded 09/01/22 09:13 pork Allergy Unknown Unknown Uncoded 09/01/22 09:13 Active Medications: Current Medications Acetaminophen (Acetaminophen 325 Mg Tablet) 650 mg PO Q6H PRN PRN Reason: Pain, Mild (Pain Scale 1-3) Last Admin: 04/19/23 08:04 Dose: 650 mg Albuterol Sulfate (Albuterol Sulfate 90 Mcg 8 Gm Inhaler) 2 puff INHALE QID PRN PRN Reason: Shortness Of Breath Or Wheezing Atorvastatin Calcium (Atorvastatin Calcium 20 Mg Tablet) 20 mg PO DAILY [facility] Last Admin: 04/19/23 08:36 Dose: 20 mg Clonidine HCl (Clonidine Hcl 0.1 Mg Tablet) 0.1 mg PO BID [facility]; Protocol Last Admin: 04/19/23 08:34 Dose: 0.1 mg Enoxaparin Sodium (Enoxaparin Sodium 40 Mg/0.4 Ml Syringe) 40 mg SUBCUT Q24H [facility] Last Admin: 04/19/23 08:33 Dose: 40 mg Fluticasone/Vilanterol (Fluticasone/Vilanterol 100/25 Blst.W.Dev) 1 puff INHALE DAILY [facility] Hydralazine HCl (Hydralazine Hcl 25 Mg Tablet) 25 mg PO BID [facility]; Protocol Last Admin: 04/19/23 08:36 Dose: 25 mg Hydroxyzine HCl (Hydroxyzine Hcl 50 Mg Tablet) 50 mg PO BID [facility] Last Admin: 04/19/23 08:35 Dose: 50 mg Lisinopril (Lisinopril 20 Mg Tablet) 20 mg PO DAILY [facility]; Protocol Last Admin: 04/19/23 08:35 Dose: 20 mg Loratadine (Loratadine 10 Mg Tablet) 10 mg PO DAILY [facility] Last Admin: 04/19/23 08:34 Dose: 10 mg Melatonin (Melatonin 3 Mg Tablet) 6 mg PO BEDTIME PRN PRN Reason: Insomnia Metoprolol Succinate (Metoprolol Succinate Er 100 Mg Tab.Er.24h) 100 mg PO BEDTIME [facility]; Protocol Last Admin: 04/18/23 22:14 Dose: 100 mg Nicotine Polacrilex (Nicotine Polacrilex 2 Mg Gum) 2 mg BUCCAL Q2H PRN PRN Reason: Nicotine Cravings Nitroglycerin (Nitroglycerin 0.4 Mg Tab.Subl) 0.4 mg SUBLINGUAL Q5M PRN PRN Reason: Chest Pain Omeprazole (Omeprazole 20 Mg Capsule.Dr) 20 mg PO DAILY@0630 [facility] Last Admin: 04/19/23 05:30 Dose: 20 mg Ondansetron HCl (Ondansetron Hcl 4 Mg/2 Ml Vial) 4 mg IVPUSH Q8H PRN PRN Reason: Nausea and Vomiting Sertraline HCl (Sertraline Hcl 100 Mg Tablet) 100 mg PO DAILY [facility] Last Admin: 04/19/23 08:35 Dose: 100 mg Trazodone HCl (Trazodone Hcl 100 Mg Tablet) 200 mg PO BEDTIME [facility] Last Admin: 04/18/23 22:14 Dose: 200 mg Verapamil HCl (Verapamil Hcl Sr 180 Mg Tablet.Er) 180 mg PO BID [facility]; Protocol Last Admin: 04/19/23 08:34 Dose: 180 mg Home Medications Medication Instructions Recorded Confirmed Last Taken Type albuterol sulfate 90 mcg/actuation 2 puff inhalation QID PRN 04/11/20 04/18/23 Unknown History aerosol inhaler (ProAir HFA) Shortness Of Breath Or Wheezing hydroxyzine HCl 50 mg tablet 50 mg PO BID Anxiety 04/11/20 04/18/23 04/18/23 History loratadine 10 mg tablet (Claritin) 10 mg PO DAILY 04/11/20 04/18/23 04/18/23 History nitroglycerin 0.4 mg sublingual 0.4 mg sublingual Q5M PRN Chest 04/11/20 04/18/23 Unknown History tablet Pain pantoprazole 40 mg tablet,delayed 40 mg PO DAILY 04/11/20 04/18/23 04/18/23 History release sertraline 50 mg tablet 100 mg PO DAILY 04/11/20 04/18/23 04/18/23 History metoprolol succinate 100 mg 100 mg PO BEDTIME 07/29/20 04/18/23 04/17/23 History tablet,extended release 24 hr trazodone 100 mg tablet 100 - 200 mg PO BEDTIME 07/29/20 04/18/23 04/17/23 History verapamil 180 mg 24 hr 180 mg PO BID 07/29/20 04/18/23 04/18/23 History capsule,extended release clonidine HCl 0.1 mg tablet 0.1 mg PO BID 03/31/23 04/18/23 04/18/23 History atorvastatin 20 mg tablet 20 mg PO QAM 04/18/23 04/18/23 04/18/23 History lisinopril 10 mg tablet 20 mg PO DAILY 04/18/23 04/18/23 04/18/23 History melatonin 5 mg tablet 5 mg PO BEDTIME PRN Insomnia 04/18/23 04/18/23 Unknown History nicotine (polacrilex) 2 mg gum 2 mg PO NEEDED 04/18/23 04/18/23 Unknown History omega 2-uqb-sux-fish oil 1,000 mg 1 cap PO DAILY 04/18/23 04/18/23 04/18/23 History (120 mg-180 mg) capsule (Fish Oil) Physical Exam 2 Vital Signs: Vital Signs: Last Vital Signs Temp 97.2 F 04/19/23 07:46 Pulse 53 04/19/23 07:46 Resp 16 04/19/23 07:46 BP 184/96 H 04/19/23 07:46 Pulse Ox 95 04/19/23 07:46 O2 Del Method Room Air 04/19/23 07:46 O2 Flow Rate 3 04/19/23 01:36 BMI result Body Mass Index 44.6 Const: Other: Constitutional : Awake, interactive, morbidly obese, not in distress Neck : Normal inspection, Supple Cardiovascular : RRR, no JVP, no lower extremity edema Respiratory : good bilateral air entry, no crackles, wheezes or rhonchi Gastrointestinal: soft, lax, Normal bowel sounds, Non tender Skin : Warm, Dry Neurological : Alert & oriented x3, No focal deficit , CN 2-12 within normal Neuro: Other: Bilateral papilledema , Otherwise normal, non focal exam. Results Labs 04/18/23 14:12 04/18/23 14:12 Labs: Short CBC 04/18/23 Range/Units 14:12 WBC 10.5 (4.8-10.8) X10*3/uL Hgb 13.3 (12.0-16.0) g/dl Hct 42.1 (37.0-47.0) % Plt Count 298 (160-400) X10*3/uL BMP 04/18/23 14:12 Sodium 141 Potassium 3.9 Chloride 102 Carbon Dioxide 28 BUN 12 Creatinine 1.23 Calcium 9.3 D Liver Function 04/18/23 Range/Units 14:12 Total Bilirubin 0.4 (0.0-1.0) mg/dL Direct Bilirubin 0.1 (0.0-0.5) mg/dL AST 20 (5-31) U/L ALT 19 (0-31) U/L Alkaline Phosphatase 78 (39-117) U/L Albumin 3.9 (3.5-5.0) g/dL Urine 04/18/23 Range/Units 19:37 Urine Color Yellow Urine Appearance Cloudy Urine pH 6.5 (5.0-9.0) Ur Specific [place] 1.020 (1.005-1.025) Urine Protein 300 (3+) H (Neg-Trace) mg/dL Urine Glucose (UA) Negative (Negative) mg/dL Assessment and Plan (1) Changes in vision: Status: Acute She appears to have increased intraorbital pressure with increased fatty tissue behind the globes. This could be seen with thyroid disease, lymphoproliferative disorders or IOIS Idiopathic orgbital inflammatory syndrome. It is less likely from pseudotomor cerebri. Recommendations: Complete thyroid profile including thyroglobulins, Thyroid peroxidase antibodies. MRI of the Orbits . Lumbar puncture to measure CSF pressure and CSF routine analysis and cytology. (2) Uncontrolled hypertension: Status: Acute Plan A 42 years old lady with CKD3, HTN, depression, GERD who presented to ED as referral from Opthalmology for eval of blurry vision and reported vision loss. Papilloedema records in her file. Head CT negative for any acute findings will get neurology evaluation MRI ordered Temporary blurry vision could be related to migraine, Pseudotumer cerebri Neuro to eval, IR to do LP if needed to confirm Neurochecks HTN urgency Improved with PO meds follow BP Hydralazine, Verapamil, Lisinopril and Clonidine. can increase as tolerated HLD Statin DVT PPx Lovenox Time Spent With Patient Time: Total time managing care of this patient today ____ minutes. Procedures Date of Service Date of Service: 04/19/23
[2023-04-19] MEDS: Fluticasone/Vilanterol 100/25 BLST.W.DEV 1 PUFF INHALE (11:04)
--- NOTE | 2023-04-19 12:19 | P.PNIM_ITS ---
Subjective Subjective Date of Service: 04/19/23 Review of Systems Follow-up hypertensive emergency Visual changes, headache resolved Physical Exam 2 Vital Signs: Vital Signs: Last Vital Signs Temp 97.0 F 04/19/23 11:00 Pulse 57 04/19/23 11:06 Resp 16 04/19/23 11:06 BP 110/68 04/19/23 11:00 Pulse Ox 93 04/19/23 11:00 O2 Del Method Room Air 04/19/23 11:00 O2 Flow Rate 3 04/19/23 01:36 BMI result Body Mass Index 44.6 Appearing in no acute distress lung sounds are clear to auscultation heart regular rate rhythm, clear S1, S2 positive bowel sounds, abdomen is soft, nontender neuro patient is alert x3, no focal deficits Objective Data Active Medications Acetaminophen (Acetaminophen 325 Mg Tablet) 650 mg PO Q6H PRN PRN Reason: Pain, Mild (Pain Scale 1-3) Last Admin: 04/19/23 08:04 Dose: 650 mg Documented By: DIAMOND Albuterol Sulfate (Albuterol Sulfate 90 Mcg 8 Gm Inhaler) 2 puff INHALE QID PRN PRN Reason: Shortness Of Breath Or Wheezing Atorvastatin Calcium (Atorvastatin Calcium 20 Mg Tablet) 20 mg PO DAILY [facility] Last Admin: 04/19/23 08:36 Dose: 20 mg Documented By: DIAMOND Clonidine HCl (Clonidine Hcl 0.1 Mg Tablet) 0.1 mg PO BID [facility]; Protocol Last Admin: 04/19/23 08:34 Dose: 0.1 mg Documented By: DIAMOND Enoxaparin Sodium (Enoxaparin Sodium 40 Mg/0.4 Ml Syringe) 40 mg SUBCUT Q24H [facility] Last Admin: 04/19/23 08:33 Dose: 40 mg Documented By: DIAMOND Fluticasone/Vilanterol (Fluticasone/Vilanterol 100/25 Blst.W.Dev) 1 puff INHALE DAILY [facility] Last Admin: 04/19/23 11:04 Dose: 1 puff Documented By: ALEXA Hydralazine HCl (Hydralazine Hcl 25 Mg Tablet) 25 mg PO BID [facility]; Protocol Last Admin: 04/19/23 08:36 Dose: 25 mg Documented By: DIAMOND Hydroxyzine HCl (Hydroxyzine Hcl 50 Mg Tablet) 50 mg PO BID [facility] Last Admin: 04/19/23 08:35 Dose: 50 mg Documented By: DIAMOND Lisinopril (Lisinopril 20 Mg Tablet) 20 mg PO DAILY [facility]; Protocol Last Admin: 04/19/23 08:35 Dose: 20 mg Documented By: DIAMOND Loratadine (Loratadine 10 Mg Tablet) 10 mg PO DAILY [facility] Last Admin: 04/19/23 08:34 Dose: 10 mg Documented By: DIAMOND Melatonin (Melatonin 3 Mg Tablet) 6 mg PO BEDTIME PRN PRN Reason: Insomnia Metoprolol Succinate (Metoprolol Succinate Er 100 Mg Tab.Er.24h) 100 mg PO BEDTIME [facility]; Protocol Last Admin: 04/18/23 22:14 Dose: 100 mg Documented By: NGHIA Nicotine Polacrilex (Nicotine Polacrilex 2 Mg Gum) 2 mg BUCCAL Q2H PRN PRN Reason: Nicotine Cravings Nitroglycerin (Nitroglycerin 0.4 Mg Tab.Subl) 0.4 mg SUBLINGUAL Q5M PRN PRN Reason: Chest Pain Omeprazole (Omeprazole 20 Mg Capsule.Dr) 20 mg PO DAILY@0630 [facility] Last Admin: 04/19/23 05:30 Dose: 20 mg Documented By: WILLIAM Ondansetron HCl (Ondansetron Hcl 4 Mg/2 Ml Vial) 4 mg IVPUSH Q8H PRN PRN Reason: Nausea and Vomiting Sertraline HCl (Sertraline Hcl 100 Mg Tablet) 100 mg PO DAILY [facility] Last Admin: 04/19/23 08:35 Dose: 100 mg Documented By: DIAMOND Trazodone HCl (Trazodone Hcl 100 Mg Tablet) 200 mg PO BEDTIME [facility] Last Admin: 04/18/23 22:14 Dose: 200 mg Documented By: NGHIA Verapamil HCl (Verapamil Hcl Sr 180 Mg Tablet.Er) 180 mg PO BID [facility]; Protocol Last Admin: 04/19/23 08:34 Dose: 180 mg Documented By: DIAMOND Labs 04/18/23 14:12 04/18/23 14:12 Labs: Laboratory Results - last 24 hr 04/18/23 04/18/23 14:12 19:37 MCV 84.7 MCH 26.8 L MCHC 31.6 RDW 17.0 H Plt Count 298 MPV 10.9 Immature Gran % (Auto) 0.2 Neut % (Auto) 61.6 Lymph % (Auto) 28.1 [place] % (Auto) 8.0 Eos % (Auto) 1.2 Baso % (Auto) 0.9 Lymph # (Auto) 2.9 [place] # (Auto) 0.8 Eos # (Auto) 0.1 Baso # (Auto) 0.1 Abs Immat Gran (auto) 0.02 Absolute Neuts (auto) 6.4 Absolute Nucleated RBC 0.000 Nucleated RBC % (auto) 0.0 ESR 17 Anion Gap 15 Estim Creat Clear Calc 77.2 Estimated GFR 48 Random Glucose 144 H Calcium 9.3 D Total Bilirubin 0.4 Direct Bilirubin 0.1 AST 20 ALT 19 Alkaline Phosphatase 78 Total Protein 8.1 H Albumin 3.9 TSH 0.65 Urine Color Yellow Urine Appearance Cloudy Urine pH 6.5 Ur Specific [place] 1.020 Urine Protein 300 (3+) H Urine Glucose (UA) Negative Urine Ketones Negative Urine Blood Negative Urine Nitrite Negative Ur Leukocyte Esterase Negative Urine RBC 0-2 Urine WBC 0-5 Ur Squamous Epith Cells 11-20 Urine Bacteria 2+ Hyaline Casts 3-5 Assessment and Plan (1) Uncontrolled hypertension: Status: Acute Plan A 42 years old lady with CKD3, HTN, depression, GERD who presented to ED as referral from Opthalmology for eval of blurry vision and reported vision loss. Papilloedema Head CT negative for any acute findings neurology consultation pending neuros intact MRI ordered Temporary blurry vision. resolved could be related to migraine vs Pseudotumer cerebri Neurology consult pending MRI ordered Neurochecks HTN urgency Improved with PO meds follow BP Hydralazine, Verapamil, Lisinopril and Clonidine. can increase as tolerated consider renal u/s for DANY if no improvement nephrology consult-follows Dr. Jassi SCHRADER Statin DVT PPx Attending Dr. Guillermo Aaron Time Spent With Patient Time: Total time managing care of this patient today ____ minutes. Quality Stroke Does the patient have a stroke diagnosis?: No VTE Prior VTE?: No VTE Risk Level:: Medical - moderate - high VTE Device Contraindication: Treatment Not Indicated VTE Drug Contraindication: N/A - Med Ordered
[2023-04-19] MEDS: Albuterol Sulfate 90 MCG 8 GM INHALER 2 PUFF INHALE (19:39)
[2023-04-19] MEDS: traZODone HCL 100 MG TABLET 200 MG PO (19:56)
[2023-04-19] MEDS: Metoprolol Succinate ER 100 MG TAB.ER.24H PO (19:58)
[2023-04-19] MEDS: gadobutroL 10 ML VIAL IVPUSH (21:23)
[2023-04-20] VITALS (8 sets, daily range): BP systolic 140–238; BP diastolic 65–113; PULSE 52–65; RESP 17–18; TEMP 36.1–37; O2SAT 93–98
--- NOTE | 2023-04-20 | ECG_ITS ---
Test Reason : chest pain Blood Pressure : / mmHG Vent. Rate : 061 BPM Atrial Rate : 061 BPM P-R Int : 180 ms QRS Dur : 102 ms QT Int : 502 ms P-R-T Axes : 052 021 033 degrees QTc Int : 505 ms Normal sinus rhythm Possible Left atrial enlargement Minimal voltage criteria for LVH, may be normal variant ( [place] product ) Prolonged QT Abnormal ECG When compared with ECG of 03-NOV-2018 12:09, Premature ventricular complexes are no longer Present QT has lengthened T wave amplitude has decreased in Lateral leads Referred By: Scot Beltran Electronically Signed By:CHRISTY JOSEPH MD
[2023-04-20] MEDS: Acetaminophen 325 MG TABLET 650 MG PO ×3 (03:33→20:06)
[2023-04-20] MEDS: Omeprazole 20 MG CAPSULE.DR PO (05:33)
[2023-04-20] MEDS: Fluticasone/Vilanterol 100/25 BLST.W.DEV 1 PUFF INHALE (07:27)
[2023-04-20] MEDS: Atorvastatin Calcium 20 MG TABLET PO (07:48)
[2023-04-20] MEDS: lisinopriL 20 MG TABLET PO (07:48)
[2023-04-20] MEDS: cloNIDine HCL 0.1 MG TABLET PO ×2 (07:48→20:05)
[2023-04-20] MEDS: Sertraline HCL 100 MG TABLET PO (07:48)
--- NOTE | 2023-04-20 07:48 | P.PNIM_ITS ---
Subjective Subjective Date of Service: 04/20/23 Review of Systems Follow-up hypertensive emergency Visual changes, headache resolved Physical Exam 2 Vital Signs: Vital Signs: Last Vital Signs Temp 97.5 F 04/20/23 07:25 Pulse 59 04/20/23 07:29 Resp 18 04/20/23 07:29 BP 182/90 H 04/20/23 07:25 Pulse Ox 98 04/20/23 07:25 O2 Del Method Room Air 04/20/23 07:25 O2 Flow Rate 3 04/19/23 01:36 BMI result Body Mass Index 44.6 Appearing in no acute distress lung sounds are clear to auscultation heart regular rate rhythm, clear S1, S2 positive bowel sounds, abdomen is soft, nontender neuro patient is alert x3, no focal deficits Objective Data Active Medications Acetaminophen (Acetaminophen 325 Mg Tablet) 650 mg PO Q6H PRN PRN Reason: Pain, Mild (Pain Scale 1-3) Last Admin: 04/20/23 03:33 Dose: 650 mg Documented By: ARA Albuterol Sulfate (Albuterol Sulfate 90 Mcg 8 Gm Inhaler) 2 puff INHALE QID PRN PRN Reason: Shortness Of Breath Or Wheezing Last Admin: 04/19/23 19:39 Dose: 2 puff Documented By: ALYSSA Atorvastatin Calcium (Atorvastatin Calcium 20 Mg Tablet) 20 mg PO DAILY [facility] Last Admin: 04/19/23 08:36 Dose: 20 mg Documented By: DIAMOND Clonidine HCl (Clonidine Hcl 0.1 Mg Tablet) 0.1 mg PO BID [facility]; Protocol Last Admin: 04/19/23 19:56 Dose: 0.1 mg Documented By: ARA Enoxaparin Sodium (Enoxaparin Sodium 40 Mg/0.4 Ml Syringe) 40 mg SUBCUT Q24H [facility] Last Admin: 04/19/23 08:33 Dose: 40 mg Documented By: DIAMOND Fluticasone/Vilanterol (Fluticasone/Vilanterol 100/25 Blst.W.Dev) 1 puff INHALE DAILY [facility] Last Admin: 04/20/23 07:27 Dose: 1 puff Documented By: ALEXA Hydralazine HCl (Hydralazine Hcl 25 Mg Tablet) 25 mg PO BID [facility]; Protocol Last Admin: 04/19/23 20:00 Dose: 25 mg Documented By: ARA Hydroxyzine HCl (Hydroxyzine Hcl 50 Mg Tablet) 50 mg PO BID [facility] Last Admin: 04/19/23 19:57 Dose: 50 mg Documented By: ARA Lisinopril (Lisinopril 20 Mg Tablet) 20 mg PO DAILY [facility]; Protocol Last Admin: 04/19/23 08:35 Dose: 20 mg Documented By: DIAMOND Loratadine (Loratadine 10 Mg Tablet) 10 mg PO DAILY [facility] Last Admin: 04/19/23 08:34 Dose: 10 mg Documented By: DIAMOND Melatonin (Melatonin 3 Mg Tablet) 6 mg PO BEDTIME PRN PRN Reason: Insomnia Metoprolol Succinate (Metoprolol Succinate Er 100 Mg Tab.Er.24h) 100 mg PO BEDTIME [facility]; Protocol Last Admin: 04/19/23 19:58 Dose: 100 mg Documented By: ARA Nicotine Polacrilex (Nicotine Polacrilex 2 Mg Gum) 2 mg BUCCAL Q2H PRN PRN Reason: Nicotine Cravings Nitroglycerin (Nitroglycerin 0.4 Mg Tab.Subl) 0.4 mg SUBLINGUAL Q5M PRN PRN Reason: Chest Pain Omeprazole (Omeprazole 20 Mg Capsule.Dr) 20 mg PO DAILY@0630 [facility] Last Admin: 04/20/23 05:33 Dose: 20 mg Documented By: ZENAIDA Ondansetron HCl (Ondansetron Hcl 4 Mg/2 Ml Vial) 4 mg IVPUSH Q8H PRN PRN Reason: Nausea and Vomiting Sertraline HCl (Sertraline Hcl 100 Mg Tablet) 100 mg PO DAILY [facility] Last Admin: 04/19/23 08:35 Dose: 100 mg Documented By: DIAMOND Trazodone HCl (Trazodone Hcl 100 Mg Tablet) 200 mg PO BEDTIME [facility] Last Admin: 04/19/23 19:56 Dose: 200 mg Documented By: ARA Verapamil HCl (Verapamil Hcl Sr 180 Mg Tablet.Er) 180 mg PO BID [facility]; Protocol Last Admin: 04/19/23 19:56 Dose: 180 mg Documented By: ARA Labs 04/18/23 14:12 04/18/23 14:12 Assessment and Plan (1) Uncontrolled hypertension: Status: Acute Plan A 42 years old lady with CKD3, HTN, depression, GERD who presented to ED as referral from Opthalmology for eval of blurry vision and reported vision loss. Papilloedema Head CT negative for any acute findings MRI negative for pseudo tumor cerebri neurology consultation>rec workup for hypothryoidism, MR of orbitz(ordered) due to increased and increased fatty tissue behind the globes, LP (ordered)-CSF pressure and CSF routine and cytology neuros intact Temporary blurry vision. resolved could be related to migraine vs elevated blood pressure Neurology following No acute findings on MRI Neurochecks HTN urgency Improved with PO meds but still high Hydralazine increased to 50mg BID, continue Verapamil, Lisinopril and Clonidine. can increase as tolerated consider renal u/s for DANY if no improvement nephrology consult-follows Dr. Jassi SCHRADER Statin morbid obesity. BMI 44.6 Discussed importance of weight management as this may be contributing to worsening of other comorbidities DVT PPx Attending Dr. Guillermo Aaron Continue hospitalization for treatment of hypertensive crisis requiring further diagnostic management Time Spent With Patient Time: Total time managing care of this patient today ____ minutes. Quality Stroke Does the patient have a stroke diagnosis?: No VTE Prior VTE?: No VTE Risk Level:: Medical - moderate - high VTE Device Contraindication: Treatment Not Indicated VTE Drug Contraindication: N/A - Med Ordered
[2023-04-20] MEDS: VerapamiL HCL SR 180 MG TABLET.ER PO (07:49)
[2023-04-20] MEDS: Loratadine 10 MG TABLET PO (07:49)
[2023-04-20] MEDS: hydrOXYzine HCL 50 MG TABLET PO ×2 (07:49→20:06)
[2023-04-20] MEDS: hydrALAZINE HCl 50 MG TABLET PO ×2 (09:29→20:05)
[2023-04-20 10:03] LABS: Prothrombin Time 12.1 SEC (11.1-13.3)
[2023-04-20 12:48] LABS: CSF Appearance Clear, Colorless; CSF Tube # 2
[2023-04-20 12:59] LABS: Glucose CSF 78 mg/dL; Total Protein CSF 26.4 mg/dL (15-45)
[2023-04-20 13:15] LABS: Appearance CSF CLEAR; CSF Tube # 4; Color CSF COLORLESS; Lymphocytes CSF 100 %
[2023-04-20 13:16] LABS: Red Blood Cell CSF 1 MM*3; White Blood Cell CSF 1 MM*3
[2023-04-20] MEDS: Albuterol Sulfate 90 MCG 8 GM INHALER 2 PUFF INHALE (15:20)
[2023-04-20] MEDS: Metoprolol Succinate ER 100 MG TAB.ER.24H PO (20:05)
[2023-04-20] MEDS: traZODone HCL 100 MG TABLET 200 MG PO (20:06)
[2023-04-21] MEDS: Acetaminophen 325 MG TABLET 650 MG PO (02:23)
[2023-04-21 02:27] VITALS: BP 160/90; PULSE 61; RESP 17
[2023-04-21 03:20] VITALS: BP 158/98; PULSE 68; RESP 16; TEMP 36.2; O2SAT 94
[2023-04-21] MEDS: Omeprazole 20 MG CAPSULE.DR PO (06:18)
[2023-04-21 07:23] VITALS: BP 190/90; PULSE 60; RESP 17; TEMP 36.1; O2SAT 95
[2023-04-21] MEDS: Fluticasone/Vilanterol 100/25 BLST.W.DEV 1 PUFF INHALE (07:36)
[2023-04-21 07:38] VITALS: PULSE 90; RESP 18; O2SAT 95
[2023-04-21] MEDS: Enoxaparin Sodium 40 MG/0.4 ML SYRINGE SUBCUT (07:45)
[2023-04-21] MEDS: hydrALAZINE HCl 50 MG TABLET PO (07:46)
[2023-04-21] MEDS: cloNIDine HCL 0.1 MG TABLET PO (07:47)
[2023-04-21] MEDS: lisinopriL 20 MG TABLET PO (07:47)
[2023-04-21] MEDS: Atorvastatin Calcium 20 MG TABLET PO (07:47)
[2023-04-21] MEDS: Loratadine 10 MG TABLET PO (07:47)
[2023-04-21] MEDS: Sertraline HCL 100 MG TABLET PO (07:47)
[2023-04-21] MEDS: Spironolactone 25 MG TABLET 12.5 MG PO (07:47)
[2023-04-21] MEDS: hydrOXYzine HCL 50 MG TABLET PO (07:48)
[2023-04-21 09:37] VITALS: BP 146/92
[2023-04-21 09:48] LABS: Thyroglobulin 8.8 ng/mL; Thyroid Peroxidase Antibodies 1 IU/mL (<9)
--- NOTE | 2023-04-21 10:51 | PM.CNCAR ---
History of Present Illness History of Present Illness Date of Service: 04/21/23 Requesting physician: Claudia Parra Chief complaint: Junctional bradycardia, elevated blood pressures Narrative: 42-year-old female who presented to [facility] after she was diagnosed with papilledema doing of thermal D visit. She was noticed to have significantly elevated blood pressures. She also has been noted to have episodes of junctional bradycardia with heart rate in 50s. Her heart rate in general are in 50s in sinus rhythm 2. She goes in and out of junctional rhythm. She has been on multiple medications including clonidine, metoprolol and verapamil. She takes verapamil for hypertension as well as migraines. Since the junctional rhythm was noted her verapamil and metoprolol were held. She is saying off and on she gets a squeezing sensation on the left side of her chest. This happened to her also in her blood pressure was very high. She is saying this is quite random. She is currently symptom free. Her last blood pressure is 146/92. [facility] Past Medical History Medical History IgA nephropathy Cancer of left kidney Migraine headache Asthma Hypertension Myocardial infarction IgA nephropathy Family History Family History Mother IgA nephropathy Breast cancer Cancer of kidney CVA (cerebral vascular accident) Maternal Uncle Tongue cancer Surgical History Surgical History Morbid obesity H/O partial nephrectomy H/O right knee surgery H/O: hysterectomy Social History Social History Household Members: Family Housing: House Do you presently have visiting nurse or other home services: No Alcohol intake: never Cigarette Packs Per Day: 1 Cigarettes Per Day: 20.0 Smoked in Last 30 Days: No Use of substances other than those prescribed or required for medical reasons: No Currently Displaying Signs/Symptoms of Drug Intoxication Withdrawal: No Advance Directives: No Advance Directives Information Provided: Yes service: No Current occupational status: employed Meds Allergies Allergy/AdvReac Type Severity Reaction Status Date / Time pork derived (porcine) Allergy Intermediate HIVES/STOMACH Verified 03/31/23 09:19 [Pork derived (porcine)] PAIN/THROAT CLOSES ibuprofen [From Motrin] Allergy Mild GI UPSET Verified 03/31/23 09:19 aspirin Allergy Unknown Unknown Verified 03/31/23 09:19 red dye Allergy Unknown Verified 03/31/23 09:19 Motrin Allergy Unknown Unknown Uncoded 09/01/22 09:13 pork Allergy Unknown Unknown Uncoded 09/01/22 09:13 Active Medications: Current Medications Acetaminophen (Acetaminophen 325 Mg Tablet) 650 mg PO Q6H PRN PRN Reason: Pain, Mild (Pain Scale 1-3) Last Admin: 04/21/23 02:23 Dose: 650 mg Albuterol Sulfate (Albuterol Sulfate 90 Mcg 8 Gm Inhaler) 2 puff INHALE QID PRN PRN Reason: Shortness Of Breath Or Wheezing Last Admin: 04/20/23 15:20 Dose: 2 puff Atorvastatin Calcium (Atorvastatin Calcium 20 Mg Tablet) 20 mg PO DAILY COUNT INCLUDES THE [facility] Last Admin: 04/21/23 07:47 Dose: 20 mg Clonidine HCl (Clonidine Hcl 0.1 Mg Tablet) 0.1 mg PO BID COUNT INCLUDES THE [facility]; Protocol Last Admin: 04/21/23 07:47 Dose: 0.1 mg Enoxaparin Sodium (Enoxaparin Sodium 40 Mg/0.4 Ml Syringe) 40 mg SUBCUT Q24H COUNT INCLUDES THE [facility] Last Admin: 04/21/23 07:45 Dose: 40 mg Fluticasone/Vilanterol (Fluticasone/Vilanterol 100/25 Blst.W.Dev) 1 puff INHALE DAILY COUNT INCLUDES THE [facility] Last Admin: 04/21/23 07:36 Dose: 1 puff Hydralazine HCl (Hydralazine Hcl 50 Mg Tablet) 50 mg PO BID COUNT INCLUDES THE [facility]; Protocol Last Admin: 04/21/23 07:46 Dose: 50 mg Hydroxyzine HCl (Hydroxyzine Hcl 50 Mg Tablet) 50 mg PO BID COUNT INCLUDES THE [facility] Last Admin: 04/21/23 07:48 Dose: 50 mg Lisinopril (Lisinopril 20 Mg Tablet) 20 mg PO DAILY COUNT INCLUDES THE [facility]; Protocol Last Admin: 04/21/23 07:47 Dose: 20 mg Loratadine (Loratadine 10 Mg Tablet) 10 mg PO DAILY COUNT INCLUDES THE [facility] Last Admin: 04/21/23 07:47 Dose: 10 mg Melatonin (Melatonin 3 Mg Tablet) 6 mg PO BEDTIME PRN PRN Reason: Insomnia Nicotine Polacrilex (Nicotine Polacrilex 2 Mg Gum) 2 mg BUCCAL Q2H PRN PRN Reason: Nicotine Cravings Nitroglycerin (Nitroglycerin 0.4 Mg Tab.Subl) 0.4 mg SUBLINGUAL Q5M PRN PRN Reason: Chest Pain Omeprazole (Omeprazole 20 Mg Capsule.Dr) 20 mg PO DAILY@0630 COUNT INCLUDES THE [facility] Last Admin: 04/21/23 06:18 Dose: 20 mg Ondansetron HCl (Ondansetron Hcl 4 Mg/2 Ml Vial) 4 mg IVPUSH Q8H PRN PRN Reason: Nausea and Vomiting Sertraline HCl (Sertraline Hcl 100 Mg Tablet) 100 mg PO DAILY COUNT INCLUDES THE [facility] Last Admin: 04/21/23 07:47 Dose: 100 mg Spironolactone (Spironolactone 25 Mg Tablet) 12.5 mg PO DAILY COUNT INCLUDES THE [facility]; Protocol Last Admin: 04/21/23 07:47 Dose: 12.5 mg Trazodone HCl (Trazodone Hcl 100 Mg Tablet) 200 mg PO BEDTIME COUNT INCLUDES THE [facility] Last Admin: 04/20/23 20:06 Dose: 200 mg Verapamil HCl (Verapamil Hcl Sr 180 Mg Tablet.Er) 180 mg PO BID COUNT INCLUDES THE [facility]; Protocol Last Admin: 04/20/23 07:49 Dose: 180 mg Home Medications Medication Instructions Recorded Confirmed Last Taken Type albuterol sulfate 90 mcg/actuation 2 puff inhalation QID PRN 04/11/20 04/18/23 Unknown History aerosol inhaler (ProAir HFA) Shortness Of Breath Or Wheezing hydroxyzine HCl 50 mg tablet 50 mg PO BID Anxiety 04/11/20 04/18/23 04/18/23 History loratadine 10 mg tablet (Claritin) 10 mg PO DAILY 04/11/20 04/18/23 04/18/23 History nitroglycerin 0.4 mg sublingual 0.4 mg sublingual Q5M PRN Chest 04/11/20 04/18/23 Unknown History tablet Pain pantoprazole 40 mg tablet,delayed 40 mg PO DAILY 04/11/20 04/18/23 04/18/23 History release sertraline 50 mg tablet 100 mg PO DAILY 04/11/20 04/18/23 04/18/23 History metoprolol succinate 100 mg 100 mg PO BEDTIME 07/29/20 04/18/23 04/17/23 History tablet,extended release 24 hr trazodone 100 mg tablet 100 - 200 mg PO BEDTIME 07/29/20 04/18/23 04/17/23 History verapamil 180 mg 24 hr 180 mg PO BID 07/29/20 04/18/23 04/18/23 History capsule,extended release clonidine HCl 0.1 mg tablet 0.1 mg PO BID 03/31/23 04/18/23 04/18/23 History atorvastatin 20 mg tablet 20 mg PO QAM 04/18/23 04/18/23 04/18/23 History lisinopril 10 mg tablet 20 mg PO DAILY 04/18/23 04/18/23 04/18/23 History melatonin 5 mg tablet 5 mg PO BEDTIME PRN Insomnia 04/18/23 04/18/23 Unknown History nicotine (polacrilex) 2 mg gum 2 mg PO NEEDED 04/18/23 04/18/23 Unknown History omega 3-mut-kdf-fish oil 1,000 mg 1 cap PO DAILY 04/18/23 04/18/23 04/18/23 History (120 mg-180 mg) capsule (Fish Oil) Physical Exam Vital Signs: Vital Signs: Last Vital Signs Temp 97.0 F 04/21/23 07:23 Pulse 90 04/21/23 07:38 Resp 18 04/21/23 07:38 BP 146/92 H 04/21/23 09:37 Pulse Ox 95 04/21/23 07:23 O2 Del Method Room Air 04/21/23 07:23 O2 Flow Rate 3 04/19/23 01:36 BMI result Body Mass Index 44.6 GENERAL APPEARANCE: in no acute distress, pleasant. NECK: no carotid bruit, no jugular venous distention. SKIN: no suspicious lesions, warm and dry. HEART: Systolic murmur, regular rate and rhythm. LUNGS: clear to auscultation bilaterally. ABDOMEN: soft, nontender. EXTREMITIES: no edema. PERIPHERAL PULSES: equal. NEUROLOGIC: No gross deficits, AAO X 3 Objective Labs and Meds 04/18/23 14:12 04/18/23 14:12 Lab results: Laboratory Results - last 24 hr 04/20/23 04/20/23 04/20/23 09:11 11:53 11:53 Thyroglobulin 8.8 Thyroglobulin Comment See Below CSF Tube Number 2 4 CSF Volume 2.0 CSF Appearance CLEAR CSF Color COLORLESS CSF WBC 1 CSF RBC 1 CSF Lymphocytes 100 CSF Appearance (b) Clear, Colorless CSF Glucose 78 CSF Total Protein 26.4 Thyroid Peroxidase Ab 1 Imaging Radiologist's impression: Impressions Lumbar Puncture Fluoroscopy 04/20/23 12:20 Impression: 1. Successful Fluoroscopic lumbar puncture. Removal of 11 mL clear CSF. 2. Elevated opening pressure 32 cm H2O, although obtained with patient in lateral position secondary to habitus. This could be falsely elevated. 3. Closing pressure 18 cm H2O, also obtained lateral. This procedure was performed by Edi Lloyd PA-C and supervised by Dr. Patel. Assessment and Plan (1) Uncontrolled hypertension: Status: Acute (2) Chest discomfort: Status: Acute (3) Junctional bradycardia: Status: Acute Plan Pleasant 42 year female who has uncontrolled hypertension and presented with papilledema and visual changes. She had lumbar puncture performed yesterday. Her blood pressure is improving. We were asked to assess her for junctional bradycardia. Her heart rates are mostly 50s to 60s whether she is in sinus or junctional rhythm. She has been going in and out of junctional rhythm and has been asymptomatic. Advised stopping the metoprolol 100 mg. Continue clonidine and resume the verapamil which she has been taking also for migraines. Would let Nephrology adjust hypertension medications otherwise as she follows with them regularly. She has some left-sided chest tightness which happen when her blood pressure was quite high. We will discuss further workup as outpatient and I think currently these symptoms are related to elevated blood pressures. Thank you for allowing me to participate in the care of your patient. Please feel free to contact me if you have any questions. Procedures Date of Service Date of Service: 04/21/23
[2023-04-21 11:08] VITALS: BP 165/79; PULSE 60; RESP 18; TEMP 36.3; O2SAT 94
--- NOTE | 2023-04-21 11:22 | P.DS_ITS ---
DS: Providers Provider Date of Service: 04/21/23 Date of admission: 04/19/23 10:06 Date of discharge: 04/21/23 Primary care physician: Niki Allen NP Consults: 04/18/23 23:26 Consult to Neurology Routine Consulting Provider: [facility] Reason for consultation: Blurry vision, high BP for eval and rec. 04/19/23 12:29 Consult to Nephrology Routine Consulting Provider: Hector Daley Reason for consultation: htn 04/20/23 11:31 Consult to Cardiology Routine Consulting Provider: [facility] Reason for consultation: junctional rhythm Attending physician on discharge: Nate Strong Discharging clinician: Claudia Parra DS: Diagnosis Discharge Diagnosis (1) Uncontrolled hypertension: Status: Acute (2) Chest discomfort: Status: Acute (3) Junctional bradycardia: Status: Acute DS: Summary Hospital Course Hospital Course: From H&P on the day of admission A 42 years old lady with CKD3, HTN, depression, GERD who presented to ED as referral from Opthalmology for eval of blurry vision and reported vision loss. The patient denies complete loss of vision at any point but reports having episodes of blurry vision that lasts up to 30 minutes on occasion or a feeling like a cloud infront of her eyes. these symptoms associated with headache most times. she was by dr Hidalgo once before and diagnosed with migraine. Opth today did eye exam and reported Papilloedema so he asked her to get further evaluation and brain images like MRI\MRV. Her blood pressure was found elevated as well with SBP up to 200s. improved with her home medications but remains elevated. she reports episodes of low blood pressure at home and she also misses taking her meds on occasions. No chest pain, palpitations, SOB, nausea, vomiting, diarrhea or urinary symptoms. vision is normal at time of interview and she reports that last time she had similar event was 2 days prior to presentation today. Papilloedema/intermittent blurry vision. Head CT negative for any acute findings. She was seen in consultation by [facility] urology and ws thought to have increased intraorbital pressure with increased fatty tissue behind the globes on MRI. This could be seen with thyroid disease, lymphoproliferative disorders or IOIS Idiopathic orbital inflammatory syndrome. It is less likely from pseudotomor cerebri. Thyroid studies were negative, LP was obtained and opening pressure was elevated at 32, but LP was performed in lateral position due to body habitus which can falsely elevate opening pressure. CSF fluid with no abnormalities, gram stain negative, cytology pending. CBC with no abnormalities . Blurry vision symptoms have improved at the moment and have been intermittent for the past year. MR of daly due to increased and increased fatty tissue behind the globes can be done as outpatient HTN urgency Improved with PO meds. Hydralazine increased to 50mg BID, continue Verapamil, Lisinopril and Clonidine. started on low dose aldactone. She was noted to have junctional rhythm for which she was seen by cardiology. Her heart rates are mostly 50s to 60s whether she is in sinus or junctional rhythm. She has been going in and out of junctional rhythm and has been asymptomatic. Her metoprolol was discontinued and no further work up was recommended. She follows in with cardiology and has outpatient stress test ordered for the near future Time Attestation Discharge coordination time: Greater than 30 minutes Quality: Safe Use of Opioids Does Pt have an Active Cancer Diagnosis on the Problem List?: No Quality: Stroke Does the patient have a stroke diagnosis?: No Physical Exam Vital Signs: Vital Signs: Last Vital Signs Temp 97.3 F 04/21/23 11:08 Pulse 60 04/21/23 11:08 Resp 18 04/21/23 11:08 BP 165/79 H 04/21/23 11:08 Pulse Ox 94 04/21/23 11:08 O2 Del Method Room Air 04/21/23 11:08 O2 Flow Rate 3 04/19/23 01:36 BMI result Body Mass Index 44.6 Const: General: cooperative, comfortable, no acute distress, alert and awake Nutritional Appearance: obese Orientation/consciousness: patient oriented x3 Resp: Effort & Inspection: normal respiratory effort, able to speak in complete sentences, no respiratory distress and no use of accessory muscles Cardio: Rate: regular rate GI: Inspection: No distended Palpation (GI): Soft to palpation and nontender Neuro: General: patient oriented x3, moves all extremities and CN's II-XI intact bilaterally Extrem: General: Yes no pedal edema DS: Data Data Completed and Pending Pending studies at discharge: Pending at discharge 04/20/23 07:42 Cytology [PTH] Routine Labs on day of discharge: Laboratory Results - last 24 hr 04/20/23 04/20/23 04/20/23 09:11 11:53 11:53 Thyroglobulin 8.8 Thyroglobulin Comment See Below CSF Tube Number 2 4 CSF Volume 2.0 CSF Appearance CLEAR CSF Color COLORLESS CSF WBC 1 CSF RBC 1 CSF Lymphocytes 100 CSF Appearance (b) Clear, Colorless CSF Glucose 78 CSF Total Protein 26.4 Thyroid Peroxidase Ab 1 Preliminary micro results at discharge 04/20/23 11:53 CSF Culture - Preliminary Cerebrospinal Fluid No growth after 1 day Discharge Plan Discharge Anticipated Discharge Date/Time: 04/21/23 12:11 Patient Disposition: Home, Self-Care Discharge Diagnosis: uncontrolled HTN papilledema vision changes Referrals: Ralph Mares MD [Physician] - 1 Week Niki Allen NP [Primary Care Provider] - 1 Week Discharge Medications: New hydralazine 50 mg tablet 50 mg PO BID 90 Days Qty: 180 0RF spironolactone 25 mg tablet 12.5 mg PO DAILY 90 Days Qty: 45 0RF Continued verapamil 180 mg Capsule,Ext Rel. Pellets 24 Hr 180 mg PO BID trazodone 100 mg Tablet 100 - 200 mg PO BEDTIME hydroxyzine HCl 50 mg Tablet 50 mg PO BID pantoprazole 40 mg Tablet,Delayed Release (Dr/Ec) 40 mg PO DAILY nitroglycerin 0.4 mg Tablet, Sublingual 0.4 mg SUBLINGUAL Q5M MDD 3 PRN (Reason: Chest Pain) albuterol sulfate [ProAir HFA] 90 mcg/actuation Hfa Aerosol Inhaler 2 puff INHALATION QID PRN (Reason: Shortness Of Breath Or Wheezing) sertraline 50 mg Tablet 100 mg PO DAILY loratadine [Claritin] 10 mg Tablet 10 mg PO DAILY atorvastatin 20 mg tablet 20 mg PO QAM nicotine (polacrilex) 2 mg gum 2 mg PO NEEDED lisinopril 10 mg tablet 20 mg PO DAILY melatonin 5 mg tablet 5 mg PO BEDTIME PRN (Reason: Insomnia) omega [id number] oil [Fish Oil] 1,000 mg (120 mg-180 mg) Capsule 1 cap PO DAILY fluticasone propion-salmeterol [Advair Diskus] 250-50 mcg/dose blister with device 1 inh inhalation BID Qty: 60 6RF clonidine HCl 0.1 mg tablet 0.1 mg PO BID Discontinued metoprolol succinate 100 mg Tablet Extended Release 24 Hr 100 mg PO BEDTIME hydralazine 25 mg tablet 25 mg PO BID 30 Days Qty: 60 4RF Discharge Orders: Discharge Order (Routine); Ordered 04/21/23 Ordered By: Claudia Parra Activity on Discharge: As tolerated Stand Alone Forms: Patient Portal Discharge page, Work/School Release Other Ambulatory Orders: Basic Metabolic Panel (Routine) Timeframe: 2 Weeks Facility: [facility] - Location: Laboratory Ordered By: Claudia Parra Care Plan Goals: see below Health Concerns: uncontrolled blood pressure intermittent vision changes papilledema junctional bradycardia Plan of Treatment: for blood pressure - your dose of hydralazine has been increased to 50 mg twice daily; you have been started on a new medication - spironolactone 12.5 mg daily stop taking metoprolol recommend outpatient MRI of orbits - this will need to be ordered by your PCP call to schedule a follow up with your PCP call to schedule a follow up with neurology Assessment: see discharge summary
--- NOTE | 2023-04-21 12:46 | MHC.CM.PN ---
Patient was switched from OBSERVATION to INPATIENT on 04/19/2023.Patient has been medically cleared for dc to home today, self care.
== END 2023-04-21 13:11 | disposition home or self-care (01) | DRG 199 ==
LOC: HO.ED 17:33 → HO.EDOVER 23:35 → HO.IMC 04-19 03:40
PROVIDERS: Nurse Practitioner Acute Care; Physician Assistant Medical; Radiology Diagnostic Radiology; Student in an Organized Health Care Education/Training Program; Admitting Provider Student in an Organized Health Care Education/Training Program; Emergency Provider Internal Medicine; PCP Nurse Practitioner Primary Care; Visit Provider Physician Assistant Medical
PROC: 009U3ZZ Drainage of Spinal Canal, Percutaneous Approach (ICD-10-PCS; CPT 62270; principal; 2023-04-20 13:10)
DX: I16.0 Hypertensive urgency (principal); H47.10 Unspecified papilledema; E78.5 Hyperlipidemia, unspecified; R00.1 Bradycardia, unspecified; E66.01 Morbid (severe) obesity due to excess calories; Z68.41 Body mass index [BMI] 40.0-44.9, adult; I12.9 Hypertensive chronic kidney disease with stage 1 through stage 4 chronic kidney disease, or unspecified chronic kidney disease; Z79.51 Long term (current) use of inhaled steroids; Z79.899 Other long term (current) drug therapy
CPT/HCPCS: 36415; 62328; 70450; 70553; 80048; 80076; 81001; 82945; 84157; 84432; 84443; 85025; 85610; 85652; 86376; 87015; 87070; 87205; 88108; 89051; 93005; 94640; 99285; A9585; J1650

== ENCOUNTER → 2023-04-18 23:26 | Outpatient (BNV) | payer MEDICAID, SELFPAY | PROVIDERS: Admitting Provider Student in an Organized Health Care Education/Training Program; Emergency Provider Internal Medicine; PCP Nurse Practitioner Primary Care; Visit Provider Student in an Organized Health Care Education/Training Program | DX: I10 Essential (primary) hypertension (principal) | CPT/HCPCS: 99223; 99232; 99239 ==

== ENCOUNTER 2023-04-19 10:06 | Outpatient (BNV) | payer MEDICAID, SELFPAY | END 2023-04-20 11:35 | PROVIDERS: Admitting Provider Student in an Organized Health Care Education/Training Program; Emergency Provider Internal Medicine; PCP Nurse Practitioner Primary Care; Visit Provider Radiology Diagnostic Radiology | DX: H40.053 Ocular hypertension, bilateral (principal) | CPT/HCPCS: 62328 ==

== ENCOUNTER → 2023-04-19 10:06 | Outpatient (BNV) | payer MEDICAID, SELFPAY | PROVIDERS: Admitting Provider Student in an Organized Health Care Education/Training Program; Emergency Provider Internal Medicine; PCP Nurse Practitioner Primary Care; Visit Provider Internal Medicine Cardiovascular Disease | DX: I10 Essential (primary) hypertension (principal); R07.89 Other chest pain; R00.1 Bradycardia, unspecified | CPT/HCPCS: 99222 ==

== ENCOUNTER 2023-05-09 11:54 | Outpatient (REF) | payer MEDICAID, SELFPAY ==
--- NOTE | ~2023-05-09 | MR_ITS ---
EXAMINATION: MRI ORBIT WITHOUT AND WITH CONTRAST CLINICAL INFORMATION: Papilledema, proptosis COMPARISON: None available. TECHNIQUE: MRI of the orbit was obtained using routine sequences without and with contrast. Intravenous contrast: Gadavist 10 mL. FINDINGS: Motion degraded examination. GLOBES: The globes appear normal. There is bilateral symmetric proptosis. LACRIMAL GLANDS: Normal. RETROBULBAR FAT: No mass or inflammatory change. EXTRAOCULAR MUSCLES: Normal bulk and signal intensity. OPTIC PATHWAY: Optic nerves, chiasm, and tracts grossly normal but in caliber and signal are suboptimally evaluated due to the degree of motion artifact. No abnormalities involving the optic radiations or occipital lobes. CAVERNOUS SINUSES: Normal. CRANIAL NERVES AND BRAINSTEM: Normal. No abnormal enhancement. REMAINING BRAIN PARENCHYMA: No acute infarct or hemorrhage. No mass effect or herniation. Signal intensities are within normal limits for age. No abnormal enhancement. VENTRICLES/EXTRA-AXIAL SPACES: No hydrocephalus or extra-axial fluid collections. FLOW VOIDS: Intact. OTHER: None. MR/MR orbits face neck wo/w con IMPRESSION: Motion degraded examination There is bilateral symmetric proptosis. No other intraorbital abnormality is identified.
[2023-05-09] MEDS: gadobutroL 10 ML VIAL IVPUSH (13:04)
== END 2023-05-09 11:55 | disposition home or self-care (01) ==
LOC: HO.MRI 11:54
PROVIDERS: PCP Nurse Practitioner Primary Care; Visit Provider Nurse Practitioner Primary Care
DX: Z13.89 Encounter for screening for other disorder (principal); H47.10 Unspecified papilledema
CPT/HCPCS: 70543; A9585

== ENCOUNTER 2023-05-11 10:44 | Outpatient (AMB) | payer MEDICAID, SELFPAY ==
--- NOTE | 2023-05-11 10:46 | A.OFFVIS_ITS ---
Intake Intake Visit Reasons: incontinence/Hx of renal cell carcinoma Intake Note: New Patient is Present for Incontinence And HX Of Renal Cell Carcinoma Previously seen Dr Faustin 2020 Urology Medication: None Antibiotic Allergies: none Blood Thinners:None PVR: 0ml Allergies pork derived (porcine) [Pork derived (porcine)] Allergy (Intermediate, Verified 05/27/23 10:00) HIVES/STOMACH PAIN/THROAT CLOSES ibuprofen [From Motrin] Allergy (Mild, Verified 05/27/23 10:00) GI UPSET aspirin Allergy (Unknown, Verified 05/27/23 10:00) Unknown red dye Allergy (Verified 05/27/23 10:00) Unknown Motrin Allergy (Unknown, Uncoded 05/11/23 10:59) Unknown pork Allergy (Unknown, Uncoded 05/11/23 10:59) Unknown HPI HPI Comments History of Present Illness Details Caitlyn is a 42-year-old female who presents today to the office to establish as a new patient for an evaluation of urinary incontinence/history of renal cell carcinoma. 05/11/2023? She has a history of IGA nephropathy and she is followed by nephrology. Patient has a past medical history of left kidney partial nephrectomy in 2010 for cancer of the left kidney. She has had a CAT scan done in 2020 which was without IV contrast and revealed a 3 cm left lower pole lesion. Patient denies any other urinary tract symtpoms other that this at this time. I have discussed with the patient about further evaluation with an MRI with and without IV contrast. Plan: Ordered an MRI with and without IV contrast. [facility] Medical History (Updated 05/30/23 @ 14:30 by Slim Grover MD) IgA nephropathy Cancer of left kidney Migraine headache Asthma Hypertension Myocardial infarction IgA nephropathy Surgical History Morbid obesity H/O partial nephrectomy H/O right knee surgery H/O: hysterectomy Family History Mother IgA nephropathy Breast cancer Cancer of kidney CVA (cerebral vascular accident) Maternal Uncle Tongue cancer Social History Household Members: Family Housing: House Do you presently have visiting nurse or other home services: No Alcohol intake: never Comment: sleeping Cigarette Packs Per Day: 1 Cigarettes Per Day: 20.0 service: No Current occupational status: employed Review of Systems Const All systems reviewed & are unremarkable except as noted in HPI and below Reports no additional complaints Eyes Reports no additional complaints ENT Reports no additional complaints Card Denies dyspnea Resp Denies cough and Denies dyspnea GI Reports no additional complaints Reports no additional complaints Musc Reports no additional complaints Skin/Breast Denies rash and Denies unusual bruising Neuro Reports no additional complaints Psych Reports no additional complaints Endo Reports no additional complaints Miguel/Lymph Reports no additional complaints Aller/Immun Reports no additional complaints Physical Exam Const General: cooperative, healthy appearing and no acute distress Nutritional Appearance: overweight Orientation/consciousness: patient oriented x3 HEENT Head: Yes normal to inspection, Yes normocephalic and Yes atraumatic Eyes Conjunctivae: conjunctivae normal Neck Neck: Yes normal visual inspection and Yes trachea midline Chest Chest palpation & inspection: normal inspection of the chest Resp Effort & Inspection: normal respiratory effort Cardio Rate: regular rate GI Inspection: Yes normal to inspection Skin General skin exam: no rashes or lesions noted Neuro General: patient oriented x3 Extrem General: No edema Psych Appearance: grossly normal Office Procedures Post Void Residual Post Residual Void Post Void Residual (PVR): 0 [id number] Void Residual by ultrasound Results AMB Urinalysis, Automated UA Leukoctes 0 Shelly/uL Last Edit by TC Teran on 05/11/23 11:09 UA Nitrite Negative Last Edit by TC Teran on 05/11/23 11:09 UA Urobilinogen 0.2 mg/dL Last Edit by TC Teran on 05/11/23 11:0 9 UA Protein 0 mg/dL Last Edit by TC Teran on 05/11/23 11:09 UA pH 5.5 Last Edit by TC Teran on 05/11/23 11:09 UA Blood 0 Narciso/uL Last Edit by TC Teran on 05/11/23 11:10 UA Blood previously reported as 10 Eliza Betancourt 05/11/23 11:10 UA Specific [place] 1.020 Last Edit by TC Teran on 05/11/23 11: 09 UA Ketone Negative Last Edit by TC Teran on 05/11/23 11:09 UA Bilirubin 0 mg/dL Last Edit by TC Teran on 05/11/23 11:09 UA Glucose 0 mg/dL Last Edit by TC Teran on 05/11/23 11:09 Results Reviewed Results Reviewed: Laboratory Last Values Urine pH (Auto) 5.5 05/11/23 11:01 Specific [place] (Auto) 1.020 05/11/23 11:01 Urine Protein (Auto) 0 mg/dL 05/11/23 11:01 Glucose (UA)(Auto) 0 mg/dL 05/11/23 11:01 Urine Ketones (Auto) Negative 05/11/23 11:01 Urine Blood (Auto) 0 Narciso/uL 05/11/23 11:01 Urine Nitrite (Auto) Negative 05/11/23 11:01 Urine Bilirubin (Auto) 0 mg/dL 05/11/23 11:01 Urine Urobilinogen (Auto) 0.2 mg/dL 05/11/23 11:01 Leukocyte Esterase (Auto) 0 Shelly/uL 05/11/23 11:01 Assessment & Plan Assessment & Plan (1) Renal mass: Code(s): N28.89 - Other specified disorders of kidney and ureter (2) IgA nephropathy: Code(s): N02.8 - Recurrent and persistent hematuria with other morphologic changes Plan Ordered an MRI with and without IV contrast. Orders: Orders MR abdomen wo/w con 05/11/23 N28.89 - Other specified disorders of kidney and ureter AMB Urinalysis Automated 05/11/23 Z13.9 - Encounter for screening, unspecified AMB Post Void Residual by ultrasound 05/11/23 N39.41 - Urge incontinence Patient Instructions: The patient had an opportunity to ask questions regarding treatment plan. All questions were answered. Imaging, Laboratory studies and physical exam results were discussed and reviewed in detail. No major barriers to understanding were identified. The patient expressed understanding and agreement with the above treatment plan. The patient is aware they should contact our office by phone for worsening of their current condition or the appearance of new symptoms. Compliance is encouraged with any medications and followup testing that is ordered. It is a privilege to be allowed the opportunity to participate in the urologic care of your patient. If you have any questions or concerns regarding treatment for the above conditions please do not hesitate to contact me. The office telephone contact is [phone]. This note is constructed in part using voice recognition software. While every effort has been made to ensure accuracy head of measurement & insights errors may have been included. Yours sincerely, Sylvia Juarez MD Coding Level of Care Code New Pt Level 4 (66893) Diagnoses Renal mass N28.89 IgA nephropathy N02.8 CPT Codes Post Residual Void - PVR CPT Code: 20453-[id number] Void Residual by ultrasound ([id number])
== END 2023-05-11 11:38 | disposition home or self-care (01) ==
PROVIDERS: PCP Nurse Practitioner Primary Care; Visit Provider Urology
DX: N28.89 Other specified disorders of kidney and ureter (principal); N02.8 Recurrent and persistent hematuria with other morphologic changes
CPT/HCPCS: 99204

== ENCOUNTER → 2023-05-11 10:44 | Outpatient (BNVA) | payer MEDICAID, SELFPAY | PROVIDERS: PCP Nurse Practitioner Primary Care; Visit Provider Urology | DX: N39.41 Urge incontinence (principal); C64.2 Malignant neoplasm of left kidney, except renal pelvis; N02.B1 Recurrent and persistent immunoglobulin A nephropathy with glomerular lesion; Z90.5 Acquired absence of kidney | CPT/HCPCS: 51798; 81003; 99202 ==

== ENCOUNTER 2023-05-17 09:53 | Outpatient (REF) | payer MEDICAID, SELFPAY ==
--- NOTE | ~2023-05-17 | MM_ITS ---
EXAMINATION: MM SCREENING DIGITAL BREAST TOMOSYNTHESIS, BILATERAL CLINICAL INFORMATION: Screening. Asymptomatic. COMPARISON: Mammography: This study is compared with prior exams dating back to 2019. TECHNIQUE: Digital breast tomosynthesis is performed in both the craniocaudal and mediolateral oblique views along with computer-aided detection (CAD). Synthesized 2D images are generated from the tomosynthesis. FINDINGS: The breasts are heterogeneously dense, which may obscure small masses (ACR BI-RADS breast composition Category c). There are no significant masses, abnormal calcifications, or other abnormalities. There is a tissue marker in the upper outer quadrant of the left breast from prior benign percutaneous biopsy. MM/MM tomosynthesis screening BI IMPRESSION: No mammographic evidence of malignancy. ASSESSMENT: BI-RADS BI-RADS 2 - Benign Findings RECOMMENDATION: Routine annual mammography screening. 1 year F/U This examination should not preclude the clinical evaluation of a suspicious palpable abnormality. This patient's information was entered into a reminder system with a target due date for their next mammogram.
== END 2023-05-17 09:54 | disposition home or self-care (01) ==
LOC: HO.MAMMO 09:53
PROVIDERS: PCP Nurse Practitioner Primary Care; Visit Provider Nurse Practitioner Primary Care
DX: Z12.31 Encounter for screening mammogram for malignant neoplasm of breast (principal)
CPT/HCPCS: 77063; 77067

== ENCOUNTER → 2023-05-17 10:15 | Outpatient (BNV) | payer MEDICAID, SELFPAY | PROVIDERS: PCP Nurse Practitioner Primary Care; Visit Provider Radiology Diagnostic Radiology | DX: Z12.31 Encounter for screening mammogram for malignant neoplasm of breast (principal) | CPT/HCPCS: 77063; 77067 ==

== ENCOUNTER → 2023-05-20 08:20 | Outpatient (REF) | payer MEDICAID, SELFPAY ==
--- NOTE | ~2023-05-20 | NM_ITS ---
Lexiscan Myocardial perfusion study Indication: Chest pain, assess for coronary disease and ischemia Technique: The patient was brought in for a Lexiscan perfusion study on 06/10/2023 and was injected 0.4 mg of Lexiscan intravenously. Within a minute of this injection 45 mCi of sestamibi was given intravenously. Images were obtained using the SPECT gamma camera interlaced with the gating device. Images were obtained in supine position. Resting perfusion study was performed on 06/17/2023. Patient was administered 45 mCi of sestamibi intravenously at rest. Images were then obtained in supine position. Images were processed with the software and compared side to side in short axis, horizontal long axis and vertical long axis views. Total DLP 181mGy-cm. Findings: Raw acquisition reviewed. The stress perfusion study showed diminished tracer uptake along the anterior wall. There is improved uptake with CT attenuation correction suggestive of soft tissue attenuation artifact. The gated study shows normal LV systolic function with calculated LVEF of 53%. LV cavity is normal in size. The gated study shows normal wall thickening and contraction of segments. Resting study shows diminished tracer uptake along the anterior wall but seems improved compared to the stress acquisition. There is significant improvement with CT attenuation correction suggestive of soft tissue attenuation artifact. Gating at rest reveals normal wall motion with ejection fraction at 59%. The findings are consistent with fixed anterior defect suspected to be from soft tissue attenuation artifact. No reversible defects. NM/NM cardiolite stress test Impression: 1. Myocardial perfusion imaging study shows likely normal myocardial perfusion. 2. Gated LVEF is 53% during stress and 59% during rest. 3. Transient ischemic dilatation not present. EKG component of the test reported separately.
--- NOTE | 2023-05-20 08:22 | CA_ITS ---
Acquisition Time: 2023-05-20 08:21:03 Total Exercise Time: 00:02:00 Test Indications: CP Medications: SEE H Protocol: LEXISCAN Max HR: 086 BPM 48% of Pred: 178 BPM Max BP: 122/078 mmHG Max Work Load: 1.0 METS Pharmacological stress test with Lexiscan injection while sitting and kicking her legs, without anginal symptoms, without arrythymias, with normotensive response to injection, with non diagnosiitic EKG. Aminophylline 75mg IVP given to reverse Lexiscan. Nuclear images pending. Test reviewed with Dr. Patino Referred By: Jing De Overread By: Melissa Patel
== END ==
LOC: HO.CARD 08:20
PROVIDERS: PCP Nurse Practitioner Primary Care; Visit Provider Nurse Practitioner Family
DX: R07.89 Other chest pain (principal); I10 Essential (primary) hypertension; E66.01 Morbid (severe) obesity due to excess calories
CPT/HCPCS: 78452; 93017; A9500; J0280; J2785

== ENCOUNTER → 2023-05-20 08:22 | Outpatient (BNV) | payer SELFPAY | PROVIDERS: PCP Nurse Practitioner Primary Care; Visit Provider Nurse Practitioner | DX: R07.89 Other chest pain (principal) | CPT/HCPCS: 78452; 93016; 93018 ==

== ENCOUNTER 2023-05-23 08:57 | Outpatient (AMB) | payer MEDICAID, SELFPAY ==
[2023-05-23 09:01] VITALS: BP 124/82; PULSE 76; BMI 44.3
--- NOTE | 2023-05-23 09:01 | MHC.OFFVIS ---
Intake Vital Signs 05/23/23 09:01 Height 5 ft 5 in Weight 266 lb 5.094 oz BMI 44.3 BP 124/82 Blood Pressure Location Lt brachial Position Sitting Pulse 76 Pulse Source Pulse Oximeter Intake Visit Reasons: f/u after testing Allergies pork derived (porcine) [Pork derived (porcine)] Allergy (Intermediate, Verified 05/23/23 09:04) HIVES/STOMACH PAIN/THROAT CLOSES ibuprofen [From Motrin] Allergy (Mild, Verified 05/23/23 09:04) GI UPSET aspirin Allergy (Unknown, Verified 05/23/23 09:04) Unknown red dye Allergy (Verified 05/23/23 09:04) Unknown Motrin Allergy (Unknown, Uncoded 05/11/23 10:59) Unknown pork Allergy (Unknown, Uncoded 05/11/23 10:59) Unknown Medication List - Last Reconciled 05/23/23 by OLGA Taylor albuterol sulfate 90 mcg/actuation (ProAir HFA) 2 puffs inhalation QID PRN atorvastatin 20 mg PO QAM clonidine HCl 0.1 mg PO BID fluticasone propion-salmeterol 250-50 mcg/dose (Advair Diskus) 1 inh inhalation BID hydralazine 50 mg PO BID 90 days hydroxyzine HCl 50 mg PO BID lisinopril 20 mg PO DAILY loratadine (Claritin) 10 mg PO DAILY melatonin 5 mg PO BEDTIME PRN nicotine (polacrilex) 2 mg PO NEEDED nitroglycerin 0.4 mg sublingual Q5M PRN MDD 3 omega 1-jve-nxm-fish oil 1,000 mg (120 mg-180 mg) (Fish Oil) 1 cap PO DAILY pantoprazole 40 mg PO DAILY sertraline 100 mg PO DAILY spironolactone 12.5 mg (1/2 x 25 mg) PO DAILY 90 days trazodone 100 - 200 mg PO BEDTIME verapamil ER 180 mg PO BID HPI f/u after testing HPI Details Caitlyn is a 42-year-old female with past medical history of hypertension, smoking, nocturnal hypoxia with home O2 use during sleep, morbid obesity who reported chest discomfort on last visit and now presents for follow-up. Today she reports that she has been doing well since her last visit. Her chest discomfort is overall improving. She has not needed any nitro recently. On last visit she reported having an episode of discomfort that was relieved by nitroglycerin. She has some shortness of breath with activity again which she relates to asthma. No heart palpitations, presyncope, syncope, falls. No PND, orthopnea or edema. 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 She is taking her meds as directed. She admits to being mostly sedentary. [facility] Medical History IgA nephropathy Cancer of left kidney Migraine headache Asthma Hypertension Myocardial infarction IgA nephropathy Surgical History Morbid obesity H/O partial nephrectomy H/O right knee surgery H/O: hysterectomy Family History Mother IgA nephropathy Breast cancer Cancer of kidney CVA (cerebral vascular accident) Maternal Uncle Tongue cancer Social History Household Members: Family Housing: House Do you presently have visiting nurse or other home services: No Alcohol intake: never Comment: sleeping Cigarette Packs Per Day: 1 Cigarettes Per Day: 20.0 service: No Current occupational status: employed Review of Systems Const All systems reviewed & are unremarkable except as noted in HPI and below ENT Denies dizziness Card Reports chest pain, Denies chest pain at rest, Denies chest pain with activity, Denies rapid heart rate, Denies pedal edema, Denies edema, Denies leg edema, Denies lightheadedness, Denies palpitations, Denies dyspnea, Denies dyspnea on exertion and Denies orthopnea Resp Denies cough, Denies dyspnea and Denies dyspnea on exertion GI Denies hematochezia and Denies change in stool character Musc Denies abnormal gait, Denies limited range of motion, Denies muscle cramps, Denies muscle weakness, Denies numbness, Denies radiating pain into limb, Denies stiffness and Denies tingling Neuro Denies abnormal gait, Denies dizziness, Denies numbness and Denies tingling Endo Denies palpitations Physical Exam Vital Signs: Last Vital Signs Pulse 76 05/23/23 09:01 BP 124/82 05/23/23 09:01 BMI result Body Mass Index 44.3 Const General: cooperative, healthy appearing, comfortable and no acute distress Orientation/consciousness: patient oriented x3 Neck Neck: Yes normal visual inspection Resp Effort & Inspection: normal respiratory effort Auscultation: clear to auscultation bilaterally, no crackles, no rales, no rhonchi and no wheezes Cardio Jugular venous distension: no JVD Rate: regular rate Rhythm: regular rhythm Heart sounds: S1 normal heart sound present, S2 normal heart sound present, no murmurs and no rubs Neuro General: patient oriented x3 Extrem General: Yes normal to inspection Psych Appearance: grossly normal Mental Status: mental status grossly normal Speech and movement: Normal speech and movement present Assessment & Plan Assessment & Plan (1) Chest discomfort: Code(s): R07.89 - Other chest pain Plan: On last visit reported sharp pains in her left chest region that can last up to 15 minutes. She has taken nitroglycerin with relief. No exertional symptoms. Today reports the pain has been happening less. Admits to being mostly sedentary. Cardiac risk factors of hypertension, smoking, morbid obesity, sedentary. Nuclear stress test is being done, rest images and final report are still pending. Plan to call her with results once available. If normal then cardiology follow-up will be 6 months from now. If abnormal then follow-up to be determined. Signs and symptoms of angina reviewed with her. Emergency care if ever needed for symptoms (2) Right ventricular dysfunction: Code(s): I51.9 - Heart disease, unspecified Plan: History of morbid obesity and nocturnal hypoxemia leading to increased filling pressures in her heart. Also has history of moderate persistent asthma and smoking. Follows with pulmonology Dr. Thomas. Uses O2 1 L during sleep. Echocardiogram done 02/23/2023 shows EF 60-65%, moderate LVH, grade 2 diastolic dysfunction, moderate dilated left atrium, mild aortic regurgitation, RVSP 45 mmHg. Echo from 2020 showed RVSP 55 mmHg. She has no signs of heart failure on examination. Reviewed echo findings with her. Benefit of weight loss reviewed. Increase physical activity as tolerated. Blood pressure was elevated last visit. Hydralazine was added and now blood pressure is in normal range. She tells me her readings at home have been much better. (3) Diastolic dysfunction: Code(s): I51.89 - Other ill-defined heart diseases Plan: Grade 2 diastolic dysfunction on recent echo (4) LVH (left ventricular hypertrophy): Code(s): I51.7 - Cardiomegaly Plan: Moderate LVH on last echo. This is up from mild LVH on echo in 2020. Will continue with good blood pressure control (5) Morbid obesity: Code(s): E66.01 - Morbid (severe) obesity due to excess calories Plan: Benefit of weight loss reviewed. She is working on diet control. May benefit from bariatric program referral. (6) Hypertension: Code(s): I10 - Essential (primary) hypertension Qualifiers: Hypertension type: primary hypertension Qualified Code(s): I10 - Essential (primary) hypertension Plan: Normal range today. Continue current meds without change. Hydralazine was or last visit and it did flag as a red dye allergy. She states she can take it without symptoms as it is pink and not red. She has been tolerating it with no allergic reactions. Plan Time spent on chart review, documentation, interview, assessment Coding Level of Care Code Est Pt Level 3 (67039) Diagnoses Chest discomfort R07.89 Right ventricular dysfunction I51.9 Diastolic dysfunction I51.89 LVH (left ventricular hypertrophy) I51.7 Morbid obesity E66.01 Primary hypertension I10 Hypertension type: primary hypertension Time Spent (min) 24
== END 2023-05-23 09:48 | disposition home or self-care (01) ==
PROVIDERS: PCP Nurse Practitioner Primary Care; Visit Provider Nurse Practitioner Family
DX: R07.89 Other chest pain (principal); I51.9 Heart disease, unspecified; I51.89 Other ill-defined heart diseases; I51.7 Cardiomegaly; E66.01 Morbid (severe) obesity due to excess calories; I10 Essential (primary) hypertension
CPT/HCPCS: 99213

== ENCOUNTER → 2023-05-23 08:57 | Outpatient (BNVA) | payer MEDICAID, SELFPAY | PROVIDERS: PCP Nurse Practitioner Primary Care; Visit Provider Nurse Practitioner Family | DX: R07.89 Other chest pain (principal); I51.9 Heart disease, unspecified; I51.89 Other ill-defined heart diseases; I51.7 Cardiomegaly; I10 Essential (primary) hypertension; E66.01 Morbid (severe) obesity due to excess calories; Z68.41 Body mass index [BMI] 40.0-44.9, adult | CPT/HCPCS: 99212 ==

== ENCOUNTER 2023-05-27 09:42 | Outpatient (AMB) | payer MEDICAID, SELFPAY ==
[2023-05-27 09:58] VITALS: BP 150/90; PULSE 83; BMI 44.0
--- NOTE | 2023-05-27 09:58 | HO.NEPHOV ---
HPI HPI Comments History of Present Illness Details I had the privilege of seeing Caitlyn in follow-up of her hypertension and proteinuria on a backdrop of IgA nephropathy. She had partial nephrectomy on the left side for a renal mass . She is gaining significant weight. She is compliant with her medications. Blood pressure has been acceptable. She has no pedal edema, hematuria, headache, visual disturbances, chest pain, shortness of breath, proximal nocturnal dyspnea or orthopnea. She is tolerating her current medication regimen. She is inconsistent in taking her fish oil. She has no orthostatic symptoms. She avoids nonsteroidal anti-inflammatory medications. She does not have any night sweats or hematuria. Her last serum creatinine has been 1.23 [facility] Medical History (Updated 05/30/23 @ 14:30 by Slim Grover MD) IgA nephropathy Cancer of left kidney Migraine headache Asthma Hypertension Myocardial infarction IgA nephropathy Surgical History Morbid obesity H/O partial nephrectomy H/O right knee surgery H/O: hysterectomy Family History Mother IgA nephropathy Breast cancer Cancer of kidney CVA (cerebral vascular accident) Maternal Uncle Tongue cancer Social History Household Members: Family Housing: House Do you presently have visiting nurse or other home services: No Alcohol intake: never Comment: sleeping Cigarette Packs Per Day: 1 Cigarettes Per Day: 20.0 service: No Current occupational status: employed Vital Signs 05/27/23 09:58 Height 5 ft 5 in Weight 264 lb 8 oz BMI 44.0 BP 150/90 H Blood Pressure Location Lt brachial Position Sitting Pulse 83 Pulse Source Pulse Oximeter Physical Exam Vital Signs: Last Vital Signs Pulse 83 05/27/23 09:58 BP 150/90 H 05/27/23 09:58 BMI result Body Mass Index 44.0 Const General: comfortable and no acute distress Orientation/consciousness: patient oriented x3 HEENT Head: Yes normocephalic Mouth: Normal oral and palatal mucosa present Eyes EOM: EOMs intact bilaterally Neck Neck: Yes supple Resp Auscultation: clear to auscultation bilaterally Cardio Jugular venous distension: no JVD Rate: regular rate GI Palpation (GI): Soft to palpation Auscultation: normal bowel sounds General: Yes no CVA tenderness Back/Spine/Pelvis Back: no CVA tenderness Skin General skin exam: no rashes or lesions noted Neuro General: patient oriented x3 and moves all extremities Extrem General: Yes no pedal edema Assessment & Plan Assessment & Plan (1) IgA nephropathy: Code(s): N02.8 - Recurrent and persistent hematuria with other morphologic changes (2) Hypertension: Code(s): I10 - Essential (primary) hypertension Qualifiers: Hypertension type: primary hypertension Qualified Code(s): I10 - Essential (primary) hypertension (3) Renal mass: Code(s): N28.89 - Other specified disorders of kidney and ureter Tereza Brady has biopsy proven IgA nephropathy. She has significant proteinuria. She has gained significant weight. Her blood pressure has been at goal at home. She needs to lose weight and if she is unsuccessful she should be referred to weight management program in [facility]. She is on DENNY-inhibitor. She has a history of a right renal mass. She needs follow-up MRI. She needs to maintain good hydration, avoid nonsteroidal anti-inflammatory medications along with a low-sodium diet. She should be consistent in taking fish oil capsules. I have ordered MRI of her kidneys for follow up of her renal mass. She has seen Urology. She is tolerating statins. I have ordered follow-up blood work and urine studies. Further management has been evolving data. Time spent retrieving data, patient encounter and documentation 26 minutes. Follow-up given. Orders: Orders Blood Urea Nitrogen 05/27/23 I10 - Essential (primary) hypertension, N02.8 - Recurrent and persistent hematuria with other morphologic changes, N18.30 - Chronic kidney disease, stage 3 unspecified Creatinine 05/27/23 I10 - Essential (primary) hypertension, N02.8 - Recurrent and persistent hematuria with other morphologic changes, N18.30 - Chronic kidney disease, stage 3 unspecified Calcium 05/27/23 I10 - Essential (primary) hypertension, N02.8 - Recurrent and persistent hematuria with other morphologic changes, N18.30 - Chronic kidney disease, stage 3 unspecified Complete Blood Count Auto Diff 05/27/23 I10 - Essential (primary) hypertension, N02.8 - Recurrent and persistent hematuria with other morphologic changes, N18.30 - Chronic kidney disease, stage 3 unspecified Immunofixation Pnl, Serum 05/27/23 I10 - Essential (primary) hypertension, N02.8 - Recurrent and persistent hematuria with other morphologic changes, N18.30 - Chronic kidney disease, stage 3 unspecified Protein Creatinine Ratio, Ur 05/27/23 I10 - Essential (primary) hypertension, N02.8 - Recurrent and persistent hematuria with other morphologic changes, N18.30 - Chronic kidney disease, stage 3 unspecified Electrolytes 05/27/23 I10 - Essential (primary) hypertension, N02.8 - Recurrent and persistent hematuria with other morphologic changes, N18.30 - Chronic kidney disease, stage 3 unspecified MR abdomen wo/w con 05/27/23 N28.89 - Other specified disorders of kidney and ureter Coding Level of Care Code Est Pt Level 4 (33471) Diagnoses IgA nephropathy N02.8 Primary hypertension I10 Hypertension type: primary hypertension Renal mass N28.89 Results Reviewed Nephrology Results: Hgb 13.3 g/dl (12.0-16.0) 04/18/23 WBC 10.5 X10*3/uL (4.8-10.8) 04/18/23 Plt Count 298 X10*3/uL (160-400) 04/18/23 Sodium 141 mmol/L (135-145) 04/18/23 Potassium 3.9 mmol/L (3.3-5.1) 04/18/23 Chloride 102 mmol/L (96-108) 04/18/23 Carbon Dioxide 28 mmol/L (22-29) 04/18/23 BUN 12 mg/dL (9-16) 04/18/23 Creatinine 1.23 mg/dL (0.5-1.4) 04/18/23 Calcium 9.3 mg/dL (8.4-10.2) 04/18/23 Urine Protein 300 (3+) mg/dL (Neg-Trace) H 04/18/23
== END 2023-05-27 10:18 | disposition home or self-care (01) ==
PROVIDERS: PCP Nurse Practitioner Primary Care; Visit Provider Internal Medicine Nephrology
DX: N02.8 Recurrent and persistent hematuria with other morphologic changes (principal); I10 Essential (primary) hypertension; N28.89 Other specified disorders of kidney and ureter
CPT/HCPCS: 99214

== ENCOUNTER → 2023-05-27 09:42 | Outpatient (BNVA) | payer MEDICAID, SELFPAY | PROVIDERS: PCP Nurse Practitioner Primary Care; Visit Provider Internal Medicine Nephrology | DX: N02.8 Recurrent and persistent hematuria with other morphologic changes (principal); N28.89 Other specified disorders of kidney and ureter; I10 Essential (primary) hypertension | CPT/HCPCS: 99212 ==

== ENCOUNTER 2023-05-31 10:40 | Outpatient (AMB) | payer MEDICAID, SELFPAY ==
--- NOTE | 2023-05-31 10:42 | MHC.OFFVIS ---
Intake Vital Signs 05/31/23 10:54 Height 5 ft 5 in Weight 264 lb BMI 43.9 Intake Visit Reasons: psychiatric np- Recurrent pain of right knee Intake Note: Caitlyn is a 42 year old female who presents today as a new patient with complaints of right knee pain and giving way. Hx od Meniscal Surgery about [address] Lea. She has difficulty with flexion and extenion. The patient describes her pain as sharp in nature. Most of the pain is along the medial aspect of her right knee. She states that her right knee will give out several times per day. She has had cortisone injections in the past. The most recent injection gave her no relief. She has also tried Tylenol and anti-inflammatory medicines which gave her minimal relief. She wishes to hold off on further surgery for as long as possible. Allergies pork derived (porcine) [Pork derived (porcine)] Allergy (Intermediate, Verified 05/27/23 10:00) HIVES/STOMACH PAIN/THROAT CLOSES ibuprofen [From Motrin] Allergy (Mild, Verified 05/27/23 10:00) GI UPSET aspirin Allergy (Unknown, Verified 05/27/23 10:00) Unknown red dye Allergy (Verified 05/27/23 10:00) Unknown Motrin Allergy (Unknown, Uncoded 05/11/23 10:59) Unknown pork Allergy (Unknown, Uncoded 05/11/23 10:59) Unknown Medication List - Last Reconciled 05/31/23 by Slim Grover MD albuterol sulfate 90 mcg/actuation (ProAir HFA) 2 puffs inhalation QID PRN atorvastatin 20 mg PO QAM clonidine HCl 0.1 mg PO BID fluticasone propion-salmeterol 250-50 mcg/dose (Advair Diskus) 1 inh inhalation BID hydralazine 50 mg PO BID 90 days hydroxyzine HCl 50 mg PO BID lisinopril 20 mg PO DAILY loratadine (Claritin) 10 mg PO DAILY melatonin 5 mg PO BEDTIME PRN nicotine (polacrilex) 2 mg PO NEEDED nitroglycerin 0.4 mg sublingual Q5M PRN MDD 3 omega 5-rzv-svh-fish oil 1,000 mg (120 mg-180 mg) (Fish Oil) 1 cap PO DAILY pantoprazole 40 mg PO DAILY sertraline 100 mg PO DAILY spironolactone 12.5 mg (1/2 x 25 mg) PO DAILY 90 days trazodone 100 - 200 mg PO BEDTIME verapamil ER 180 mg PO BID PFS Medical History (Updated 05/30/23 @ 14:30 by Slim Grover MD) IgA nephropathy Cancer of left kidney Migraine headache Asthma Hypertension Myocardial infarction IgA nephropathy Surgical History Morbid obesity H/O partial nephrectomy H/O right knee surgery H/O: hysterectomy Family History Mother IgA nephropathy Breast cancer Cancer of kidney CVA (cerebral vascular accident) Maternal Uncle Tongue cancer Social History Household Members: Family Housing: House Do you presently have visiting nurse or other home services: No Alcohol intake: never Comment: sleeping Cigarette Packs Per Day: 1 Cigarettes Per Day: 20.0 service: No Current occupational status: employed Physical Exam Vital Signs: BMI result Body Mass Index 43.9 Const Other: Well-nourished well-developed very friendly female awake alert and oriented x3 in no acute distress Extrem Other: Bilateral lower extremity examination shows good capillary refill, no skin lesions noted, normal sensation light touch Right knee examination shows a minimal effusion, mild crepitus with range of motion, pain with range of motion, tenderness along her medial joint line, positive Marc's test Results Reviewed Results Reviewed: X-rays of the patient's right knee taken today show moderate to severe joint space narrowing most significant in the medial compartment, no acute bony abnormalities Assessment & Plan Assessment & Plan (1) Right knee pain: Code(s): M25.561 - Pain in right knee Plan Ms. Valdo Valverde presents with progressively worsening right knee pain and mechanical symptoms due to degenerative joint disease as well as possible recurrent medial meniscus tearing. I had a lengthy discussion with the patient regarding the treatment options. She wishes to hold off on further surgery for as long as possible. I agree with this plan. She has not gotten good relief from cortisone injections in the past. Thus, I will see whether not her insurance company will cover a viscosupplementation injection. I will see her back once the injection is available. I also had her fitted for a Reaction knee brace because of her symptoms of instability. I do find that the brace is a medical necessity to help prevent future falls. Feel free to call me at any time should questions regarding her orthopedic management arise. Thank you very much for asking me to see this very friendly patient. I spent 22 minutes in reviewing the patient's records and imaging studies, seeing the patient and documenting in the medical record. Orders: Orders XR knee RT 3V Today M25.561 - Pain in right knee Coding Level of Care Code Est Pt Level 2 (55064) Diagnoses Right knee pain M25.561
[2023-05-31 10:54] VITALS: BMI 43.9
== END 2023-05-31 11:14 | disposition home or self-care (01) ==
PROVIDERS: PCP Nurse Practitioner Primary Care; Visit Provider Orthopaedic Surgery
DX: M25.561 Pain in right knee (principal)
CPT/HCPCS: 99203

== ENCOUNTER 2023-05-31 11:35 | Outpatient (REF) | payer MEDICAID, SELFPAY ==
--- NOTE | ~2023-05-31 | XR_ITS ---
EXAMINATION: XR KNEE, RIGHT CLINICAL INFORMATION: Pain in the right knee. COMPARISON: None available. TECHNIQUE: Three views of the right knee. FINDINGS: No evidence of acute fracture or subluxation. Moderate to severe joint space narrowing of the medial and patellofemoral compartments. Small tricompartmental marginal osteophytes. No osseous erosions or chondrocalcinosis. No joint effusion. XR/XR knee RT 3V IMPRESSION: No acute fracture or malalignment. Moderate to severe degenerative osteoarthritis of the medial and patellofemoral compartments.
== END 2023-05-31 11:36 | disposition home or self-care (01) ==
LOC: HO.HOSX 11:35
PROVIDERS: Visit Provider Orthopaedic Surgery
DX: M25.561 Pain in right knee (principal); Z79.899 Other long term (current) drug therapy
CPT/HCPCS: 73562; 99202

== ENCOUNTER 2023-07-29 10:26 | Outpatient (AMB) | payer OTHER, SELFPAY ==
[2023-07-29 10:31] VITALS: BP 158/80; PULSE 82; O2SAT 96; BMI 44.5
--- NOTE | 2023-07-29 10:31 | HO.NEPHOV_ITS ---
HPI HPI Comments History of Present Illness Details I had the privilege of seeing Caitlyn in follow-up of her hypertension and proteinuria on a backdrop of IgA nephropathy. She had partial nephrectomy on the left side for a renal mass . She has gained significant weight. She is compliant with her medications. Blood pressure has been acceptable. She has pedal edema and spotty rash in her both lower legs but no sore throat, hematuria, headache, visual disturbances, chest pain, shortness of breath, proximal nocturnal dyspnea or orthopnea. She is tolerating her current medication regimen. She is inconsistent in taking her fish oil. She has no orthostatic symptoms. She avoids nonsteroidal anti-inflammatory medications. She does not have any night sweats or hematuria. Her last serum creatinine has been 1.23. She has not had any blood work or urine studies as requested prior to this visit [facility] Medical History (Updated 07/29/23 @ 15:14 by Hector Daley MD) IgA nephropathy Cancer of left kidney Migraine headache Asthma Hypertension Myocardial infarction IgA nephropathy Surgical History Morbid obesity H/O partial nephrectomy H/O right knee surgery H/O: hysterectomy Family History Mother IgA nephropathy Breast cancer Cancer of kidney CVA (cerebral vascular accident) Maternal Uncle Tongue cancer Social History Household Members: Family Housing: House Do you presently have visiting nurse or other home services: No Alcohol intake: never Comment: sleeping Cigarette Packs Per Day: 1 Cigarettes Per Day: 20.0 service: No Current occupational status: employed Vital Signs 07/29/23 10:31 Height 5 ft 5 in Weight 267 lb 8 oz BMI 44.5 BP 158/80 H Blood Pressure Location Rt brachial Position Sitting Pulse 82 Pulse Source Pulse Oximeter Pulse Oximetry (%) 96 Oxygen Delivery Method Room Air Physical Exam Vital Signs: Last Vital Signs Pulse 82 07/29/23 10:31 BP 158/80 H 07/29/23 10:31 Pulse Ox 96 07/29/23 10:31 Oxygen Delivery Method Room Air 07/29/23 10:31 BMI result Body Mass Index 44.5 Const General: comfortable and no acute distress Orientation/consciousness: patient oriented x3 HEENT Head: Yes normocephalic Mouth: Normal oral and palatal mucosa present Eyes EOM: EOMs intact bilaterally Neck Neck: Yes supple Resp Auscultation: clear to auscultation bilaterally Cardio Jugular venous distension: no JVD Rate: regular rate GI Palpation (GI): Soft to palpation Auscultation: normal bowel sounds General: Yes no CVA tenderness Back/Spine/Pelvis Back: no CVA tenderness Skin General skin exam: no rashes or lesions noted Neuro General: patient oriented x3 and moves all extremities Assessment & Plan Assessment & Plan (1) CKD (chronic kidney disease) stage 3, GFR 30-59 ml/min: Code(s): N18.30 - Chronic kidney disease, stage 3 unspecified Qualifiers: Chronic kidney disease stage 3 subtype: stage 3a (GFR 45-59) Qualified Code(s): N18.31 - Chronic kidney disease, stage 3a (2) IgA nephropathy: Code(s): N02.8 - Recurrent and persistent hematuria with other morphologic changes (3) Hypertension: Code(s): I10 - Essential (primary) hypertension Qualifiers: Hypertension type: primary hypertension Qualified Code(s): I10 - Essential (primary) hypertension (4) Proteinuria: Code(s): R80.9 - Proteinuria, unspecified Qualifiers: Proteinuria type: other Qualified Code(s): R80.8 - Other proteinuria Plan Caitlyn has biopsy proven IgA nephropathy. She has significant proteinuria. She has gained significant weight. Her blood pressure has been at goal at home. She needs to lose weight and if she is unsuccessful she should be referred to weight management program in [facility]. She is on DENNY-inhibitor. She has a history of a right renal mass. She needs follow-up MRI. She needs to maintain good hydration, avoid nonsteroidal anti-inflammatory medications along with a low-sodium diet. She should be consistent in taking fish oil capsules. She needs MRI of her kidneys for follow up of her renal mass. She has seen Urology. She is tolerating statins. I have ordered follow-up blood work and urine studies. Further management has been evolving data. All questions answered. Follow-up given Medications: Refilled spironolactone 12.5 mg (1/2 x 25 mg) PO DAILY 45 tabs 4RF 90 days Coding Level of Care Code Est Pt Level 4 (70903) Diagnoses Stage 3a chronic kidney disease N18.31 Chronic kidney disease stage 3 subtype: stage 3a (GFR 45-59) IgA nephropathy N02.8 Primary hypertension I10 Hypertension type: primary hypertension Other proteinuria R80.8 Proteinuria type: other Results Reviewed Nephrology Results: Hgb 13.3 g/dl (12.0-16.0) 07/29/23 WBC 11.3 X10*3/uL (4.8-10.8) H 07/29/23 Plt Count 277 X10*3/uL (160-400) 07/29/23 Sodium 136 mmol/L (135-145) 07/29/23 Potassium 4.2 mmol/L (3.3-5.1) 07/29/23 Chloride 101 mmol/L (96-108) 07/29/23 Carbon Dioxide 27 mmol/L (22-29) 07/29/23 BUN 15 mg/dL (9-16) 07/29/23 Creatinine 1.45 mg/dL (0.5-1.4) H 07/29/23 Calcium 9.2 mg/dL (8.4-10.2) 07/29/23 Urine Creatinine 127.16 mg/dL 07/29/23 Protein/Creatinin Ratio 1.26 (<0.2) H 07/29/23
== END 2023-07-29 11:11 | disposition home or self-care (01) ==
PROVIDERS: PCP Nurse Practitioner Primary Care; Visit Provider Internal Medicine Nephrology
DX: N18.31 Chronic kidney disease, stage 3a (principal); N02.8 Recurrent and persistent hematuria with other morphologic changes; I10 Essential (primary) hypertension; R80.8 Other proteinuria
CPT/HCPCS: 99214

== ENCOUNTER 2023-07-29 10:26 | Outpatient (REF) | payer OTHER, SELFPAY ==
[2023-07-29 12:05] LABS: MANUAL DIFF FLAG NO
[2023-07-29 13:22] LABS: Basophils Absolute Auto 0.1 X10*3/uL (0.0-0.2); Basophils Percent Auto 0.5 % (0-2); Eosinophils Absolute Auto 0.1 X10*3/uL (0.0-0.4); Eosinophils Percent Auto 1.1 % (0-4); Hematocrit 41.3 % (37.0-47.0); Hemoglobin 13.3 g/dl (12.0-16.0); Imm Gran Abs Auto 0.03 X10*3/uL (0.00-0.03); Imm Gran Pct Auto 0.3 % (0.0-0.4); Lymphocytes Absolute Auto 2.4 X10*3/uL (1.2-4.9); Lymphocytes Percent Auto 21.5 % (20-40); Mean Corpuscular HGB Conc 32.2 g/dl (31.0-35.0); Mean Corpuscular Hemoglobin 26.8 pg (27.0-33.0); Mean Corpuscular Volume 83.3 fL (80.0-98.0); Monocytes Absolute Auto 0.9 X10*3/uL (0.1-1.2); Monocytes Percent Auto 8.1 % (2-11); Neutrophils Absolute Auto 7.7 x10*3/uL (2.0-8.3); Neutrophils Percent Auto 68.5 % (45-73); Platelet Count 277 X10*3/uL (160-400); Red Blood Count 4.96 X10*6/uL (4.20-5.50); Red Cell Distribution Width 16.2 % (11.0-16.0); White Blood Count 11.3 X10*3/uL (4.8-10.8)
[2023-07-29 14:19] LABS: Anion Gap 12 (12-20); Blood Urea Nitrogen 15 mg/dL (9-16); Calcium 9.2 mg/dL (8.4-10.2); Carbon Dioxide 27 mmol/L (22-29); Chloride 101 mmol/L (96-108); Estimated Glomerular Filt Rate 39; Potassium 4.2 mmol/L (3.3-5.1); Sodium 136 mmol/L (135-145)
[2023-07-29 14:27] LABS: Creatinine Urine 127.16 mg/dL; Protein/Creatinine Ratio, Ur 1.26 (<0.2); Total Protein Urine Random 160 mg/dL (<12)
[2023-08-02 13:33] LABS: IgA 522 mg/dL (47-310); IgG 2496 mg/dL (600-1640); IgM 170 mg/dL (50-300)
== END 2023-07-29 10:27 | disposition home or self-care (01) ==
LOC: HO.LAB 10:26
PROVIDERS: PCP Nurse Practitioner Primary Care; Visit Provider Internal Medicine Nephrology
DX: I12.9 Hypertensive chronic kidney disease with stage 1 through stage 4 chronic kidney disease, or unspecified chronic kidney disease (principal); N18.31 Chronic kidney disease, stage 3a; N02.8 Recurrent and persistent hematuria with other morphologic changes; R80.8 Other proteinuria
CPT/HCPCS: 36415; 80051; 82310; 82565; 82570; 82784; 84156; 84520; 85025; 86334; 99212

== ENCOUNTER 2023-08-15 08:03 | Outpatient (REF) | payer OTHER, SELFPAY ==
--- NOTE | ~2023-08-15 | MR_ITS ---
EXAMINATION: MR ABDOMEN WITHOUT AND WITH CONTRAST CLINICAL INFORMATION: History of left partial nephrectomy for cancer. COMPARISON: Abdomen CT from 01/12/2019 and 07/29/2020. TECHNIQUE: MR abdomen was performed without and with use of 10 mL intravenous Gadavist gadolinium contrast. Postcontrast images are performed in multiphase dynamic sequences on a high-field magnet. Imaging was performed in 3 planes. FINDINGS: LOCALIZER IMAGES: Large body habitus. LUNG BASES: No pulmonary consolidation or pleural effusion. LIVER: Chronic hepatomegaly with right hepatic lobe measuring approximately 23 cm in craniocaudal dimension. There appears to be mild hepatic steatosis on the opposed phase gradient echo imaging with estimated fat fraction of the liver of approximately 5 - 6%. No focal liver lesion. GALLBLADDER AND BILIARY TREE: Gallbladder is physiologically distended and has normal wall thickness. No evidence of cholelithiasis or wall thickening. No dilated bile ducts. PANCREAS: No edema, pancreatic ductal dilatation or mass. SPLEEN: Normal. ADRENAL GLANDS: Normal. KIDNEYS: Kidneys are normal in size. No hydronephrosis. There are a few very small subcentimeter sized simple cysts of the right kidney for which no imaging follow-up is recommended. A small somewhat linear nonenhancing T2 hyperintense focus is present within the anterior cortex of the [id number]-mu-[id number] pole of left kidney (images 26-27, series 7). This is suspected represent chronic focal fibrosis. A small nonenhancing focus was seen in this same region on postcontrast CT images from 01/12/2019. Also, there is T2 hypointense signal and lack of internal enhancement of a masslike focus at the lateral left lower pole. This measures 3.2 cm craniocaudal and is unchanged in size and morphology compared to 01/12/2019. There is thin rim-like enhancement around this stable focus. The T2 hypointense signal and lack of enhancement suggests old post treatment necrosis and fibrosis. A small are of cystic signal change, 0.8 cm craniocaudal dimension, is present at the posterior left lower pole and this has a simple appearance. There is no evidence of any solid contrast enhancing renal mass. The visualized proximal ureters are normal. BOWEL AND PERITONEUM: Stomach is unremarkable. No dilated loops of bowel. No bowel wall thickening or mesenteric fat stranding. No abdominal free fluid. VASCULATURE: Unremarkable. LYMPH NODES: No pathologic sized lymph nodes in the abdomen. SKELETAL: Hemangioma of the T12 vertebral body. MR/MR abdomen wo/w con IMPRESSION: * Mild hepatic steatosis and hepatomegaly. * A nonenhancing T2 hypointense masslike focus at the lateral left lower pole likely represents old posttreatment necrosis and fibrosis from partial nephrectomy (or old ablation treatment for carcinoma). This masslike area is unchanged in size and morphology compared to the CT exams from 12/13/2018 and 07/29/2020. There is no evidence of any solid contrast enhancing renal mass. No lymphadenopathy.
[2023-08-15] MEDS: gadobutroL 10 ML VIAL IVPUSH (08:37)
== END 2023-08-15 08:04 | disposition home or self-care (01) ==
LOC: HO.MRI 08:03
PROVIDERS: PCP Nurse Practitioner Primary Care; Visit Provider Urology
DX: N28.89 Other specified disorders of kidney and ureter (principal)
CPT/HCPCS: 74183; A9585

== ENCOUNTER 2023-09-08 11:09 | Outpatient (AMB) | payer OTHER, SELFPAY ==
--- NOTE | 2023-09-08 09:52 | A.OFFVIS_ITS ---
Intake Intake Visit Reasons: Renal mass/MRI Results Intake Note: Patient is Present via phone to discuss MRI Results: Urology Medication: None Antibiotic Allergies: none Blood Thinners:None Hydrodynamicist Required: No Accompanied by: Self / Same As Patient Allergies pork derived (porcine) [Pork derived (porcine)] Allergy (Intermediate, Verified 09/08/23 09:53) HIVES/STOMACH PAIN/THROAT CLOSES ibuprofen [From Motrin] Allergy (Mild, Verified 09/08/23 09:53) GI UPSET aspirin Allergy (Unknown, Verified 09/08/23 09:53) Unknown red dye Allergy (Verified 09/08/23 09:53) Unknown Motrin Allergy (Unknown, Uncoded 09/08/23 09:53) Unknown pork Allergy (Unknown, Uncoded 09/08/23 09:53) Unknown Medication List - Last Reconciled 09/08/23 by Sylvia Juarez MD albuterol sulfate 90 mcg/actuation (ProAir HFA) 2 puffs inhalation QID PRN atorvastatin 20 mg PO QAM clonidine HCl 0.1 mg PO BID fluticasone propion-salmeterol 250-50 mcg/dose (Advair Diskus) 1 inh inhalation BID hydralazine 50 mg PO BID 90 days hydroxyzine HCl 50 mg PO BID lisinopril 20 mg PO DAILY loratadine (Claritin) 10 mg PO DAILY melatonin 5 mg PO BEDTIME PRN nicotine (polacrilex) 2 mg PO NEEDED nitroglycerin 0.4 mg sublingual Q5M PRN MDD 3 omega 4-nyn-rkt-fish oil 1,000 mg (120 mg-180 mg) (Fish Oil) 1 cap PO DAILY pantoprazole 40 mg PO DAILY sertraline 100 mg PO DAILY spironolactone 12.5 mg (1/2 x 25 mg) PO DAILY 90 days trazodone 100 - 200 mg PO BEDTIME verapamil ER 180 mg PO BID HPI HPI Comments History of Present Illness Details 09/08/23--Caitlyn is a 42-year-old fema thanh who presents for telehealth visit for follow up. She has history of renal cell carcinoma, status post partial nephrectomy left kidney in 2010. She was evaluated on 05/11/2023 and at that time I reviewed CT scan imaging done in 2020 which was suspicious for a left lower pole lesion. MRI was ordered. I have reviewed results with her. The MRI of the abdomen was performed 08/15/2023 and notes that the area in question is consistent with necrosis or scarring from prior surgery on the kidney there is no enhancement. Plan discussed will be to continue to monitor kidneys. Follow-up in 1 year with renal ultrasound prior. Review of chart: 05/11/2023? She has a history of IGA nephropathy and she is followed by nephrology. Patient has a past medical history of left kidney partial nephrectomy in 2010 for cancer of the left kidney. She has had a CAT scan done in 2020 which was without IV contrast and revealed a 3 cm left lower pole lesion. Patient denies any other urinary tract symtpoms other that this at this time. I have discussed with the patient about further evaluation with an MRI with and without IV contrast. 09/08/23--Plan: Follow-up in 1 year, renal ultrasound prior. [facility] Medical History IgA nephropathy Cancer of left kidney Migraine headache Asthma Hypertension Myocardial infarction IgA nephropathy Surgical History Morbid obesity H/O partial nephrectomy H/O right knee surgery H/O: hysterectomy Family History Mother IgA nephropathy Breast cancer Cancer of kidney CVA (cerebral vascular accident) Maternal Uncle Tongue cancer Social History Household Members: Family Housing: House Do you presently have visiting nurse or other home services: No Alcohol intake: never Comment: sleeping Cigarette Packs Per Day: 1 Cigarettes Per Day: 20.0 service: No Current occupational status: employed Review of Systems Const All systems reviewed & are unremarkable except as noted in HPI and below Reports no additional complaints Eyes Reports no additional complaints ENT Reports no additional complaints Card Denies dyspnea Resp Denies cough and Denies dyspnea GI Reports no additional complaints Reports no additional complaints Musc Reports no additional complaints Skin/Breast Denies rash and Denies unusual bruising Neuro Reports no additional complaints Psych Reports no additional complaints Endo Reports no additional complaints Miguel/Lymph Reports no additional complaints Aller/Immun Reports no additional complaints Results Reviewed Results Reviewed: Date of Service: 08/15/23 EXAMINATION: MR ABDOMEN WITHOUT AND WITH CONTRAST CLINICAL INFORMATION: History of left partial nephrectomy for cancer. COMPARISON: Abdomen CT from 01/12/2019 and 07/29/2020. TECHNIQUE: MR abdomen was performed without and with use of 10 mL intravenous Gadavist gadolinium contrast. Postcontrast images are performed in multiphase dynamic sequences on a high-field magnet. Imaging was performed in 3 planes. FINDINGS: LOCALIZER IMAGES: Large body habitus. LUNG BASES: No pulmonary consolidation or pleural effusion. LIVER: Chronic hepatomegaly with right hepatic lobe measuring approximately 23 cm in craniocaudal dimension. There appears to be mild hepatic steatosis on the opposed phase gradient echo imaging with estimated fat fraction of the liver of approximately 5 - 6%. No focal liver lesion. GALLBLADDER AND BILIARY TREE: Gallbladder is physiologically distended and has normal wall thickness. No evidence of cholelithiasis or wall thickening. No dilated bile ducts. PANCREAS: No edema, pancreatic ductal dilatation or mass. SPLEEN: Normal. ADRENAL GLANDS: Normal. KIDNEYS: Kidneys are normal in size. No hydronephrosis. There are a few very small subcentimeter sized simple cysts of the right kidney for which no imaging follow-up is recommended. A small somewhat linear nonenhancing T2 hyperintense focus is present within the anterior cortex of the kjo-np-rpyal pole of left kidney (images 26-27, series 7). This is suspected represent chronic focal fibrosis. A small nonenhancing focus was seen in this same region on postcontrast CT images from 01/12/2019. Also, there is T2 hypointense signal and lack of internal enhancement of a masslike focus at the lateral left lower pole. This measures 3.2 cm craniocaudal and is unchanged in size and morphology compared to 01/12/2019. There is thin rim-like enhancement around this stable focus. The T2 hypointense signal and lack of enhancement suggests old post treatment necrosis and fibrosis. A small are of cystic signal change, 0.8 cm craniocaudal dimension, is present at the posterior left lower pole and this has a simple appearance. There is no evidence of any solid contrast enhancing renal mass. The visualized proximal ureters are normal. BOWEL AND PERITONEUM: Stomach is unremarkable. No dilated loops of bowel. No bowel wall thickening or mesenteric fat stranding. No abdominal free fluid. VASCULATURE: Unremarkable. LYMPH NODES: No pathologic sized lymph nodes in the abdomen. SKELETAL: Hemangioma of the T12 vertebral body. IMPRESSION: * Mild hepatic steatosis and hepatomegaly. * A nonenhancing T2 hypointense masslike focus at the lateral left lower pole likely represents old posttreatment necrosis and fibrosis from partial nephrectomy (or old ablation treatment for carcinoma). This masslike area is unchanged in size and morphology compared to the CT exams from 12/13/2018 and 07/29/2020. There is no evidence of any solid contrast enhancing renal mass. No lymphadenopathy. Assessment & Plan Assessment & Plan (1) IgA nephropathy: Code(s): N02.8 - Recurrent and persistent hematuria with other morphologic changes (2) History of renal cell cancer: Code(s): Z85.528 - Personal history of other malignant neoplasm of kidney Plan Follow-up in 1 year, renal ultrasound prior. Orders: Orders US renal BI 11 Months Z85.528 - Personal history of other malignant neoplasm of kidney Patient Instructions: The patient had an opportunity to ask questions regarding treatment plan. All questions were answered. Imaging, was discussed and reviewed in detail. No major barriers to understanding were identified. The patient expressed understanding and agreement with the above treatment plan. The patient is aware they should contact our office by phone for worsening of their current condition or the appearance of new symptoms. Compliance is encouraged with any medications and followup testing that is ordered. It is a privilege to be allowed the opportunity to participate in the urologic care of your patient. If you have any questions or concerns regarding treatment for the above conditions please do not hesitate to contact me. The office telephone contact is [phone]. This note is constructed in part using voice recognition software. While every effort has been made to ensure accuracy ibm mainframe developer errors may have been included. Yours sincerely, Sylvia Juarez MD Telehealth Telehealth Location of provider rendering services: practice address Location of patient: address on file Patient Identification confirmed using: Name, : Yes Telehealth method: voice only Patient verbally consented to treatment: Yes Patient verbally consented to billing insurance company: Yes Patient informed of any privacy concerns related to visit: Yes Minutes spent on Phone/Video with Pt.: 10 Coding Level of Care Code Tele Est Pt Level 3 (01282) Diagnoses IgA nephropathy N02.8 History of renal cell cancer Z85.528
== END 2023-09-08 13:13 | disposition home or self-care (01) ==
LOC: HO.HUSH 11:09
PROVIDERS: PCP Nurse Practitioner Primary Care; Visit Provider Urology
DX: N02.8 Recurrent and persistent hematuria with other morphologic changes (principal); Z85.528 Personal history of other malignant neoplasm of kidney
CPT/HCPCS: 99213

== ENCOUNTER → 2023-09-08 11:09 | Outpatient (BNVA) | payer OTHER, SELFPAY | PROVIDERS: PCP Nurse Practitioner Primary Care; Visit Provider Urology ==

== ENCOUNTER 2023-11-25 12:37 | Outpatient (REF) | payer OTHER, SELFPAY ==
[2023-11-25 15:05] LABS: Alanine Aminotransferase 17 U/L (0-31); Albumin Level 3.7 g/dL (3.5-5.0); Alkaline Phosphatase 75 U/L (39-117); Anion Gap 10 (12-20); Aspartate Amino Transferase 16 U/L (5-31); Bilirubin Total 0.2 mg/dL (0.0-1.0); Blood Urea Nitrogen 12 mg/dL (9-16); Calcium 9.4 mg/dL (8.4-10.2); Carbon Dioxide 30 mmol/L (22-29); Chloride 103 mmol/L (96-108); Cholesterol 205 mg/dL (<200); Estimated Glomerular Filt Rate 47; Glucose Fasting 106 mg/dL (60-99); HDL Cholesterol 55 mg/dL (>40); LDL Cholesterol Calculated 119 mg/dL (<100); Potassium 4.3 mmol/L (3.3-5.1); Sodium 139 mmol/L (135-145); Total Protein 8.4 g/dL (6.5-8.0); Triglycerides 155 mg/dL (<150)
== END 2023-11-25 12:38 | disposition home or self-care (01) ==
LOC: HO.LAB 12:37
PROVIDERS: PCP Nurse Practitioner Primary Care; Visit Provider Nurse Practitioner Family
DX: I51.89 Other ill-defined heart diseases (principal); I51.7 Cardiomegaly; E78.5 Hyperlipidemia, unspecified; I10 Essential (primary) hypertension; F17.210 Nicotine dependence, cigarettes, uncomplicated; R07.89 Other chest pain; Z99.81 Dependence on supplemental oxygen
CPT/HCPCS: 36415; 80053; 80061; 99212

== ENCOUNTER 2023-11-25 12:37 | Outpatient (AMB) | payer MEDICAID, SELFPAY ==
[2023-11-25 12:53] VITALS: BP 142/80; PULSE 76; BMI 45.2
--- NOTE | 2023-11-25 12:53 | MHC.OFFVIS ---
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 Required: No Allergies pork derived (porcine) [Pork derived (porcine)] Allergy (Intermediate, Verified 11/25/23 12:55) HIVES/STOMACH PAIN/THROAT CLOSES ibuprofen [From Motrin] Allergy (Mild, Verified 11/25/23 12:55) GI UPSET aspirin Allergy (Unknown, Verified 11/25/23 12:55) Unknown red dye Allergy (Verified 11/25/23 12:55) Unknown Motrin Allergy (Unknown, Uncoded 11/25/23 12:55) Unknown pork Allergy (Unknown, Uncoded 11/25/23 12:55) Unknown Medication List - Last Reconciled 11/25/23 by OLGA Taylor albuterol sulfate 90 mcg/actuation (ProAir HFA) 2 puffs inhalation QID PRN atorvastatin 20 mg PO QAM fluticasone propion-salmeterol 250-50 mcg/dose (Advair Diskus) 1 inh inhalation BID hydralazine 50 mg PO BID 90 days hydroxyzine HCl 50 mg PO BID lisinopril 20 mg PO DAILY loratadine (Claritin) 10 mg PO DAILY melatonin 5 mg PO BEDTIME PRN nicotine (polacrilex) 2 mg PO NEEDED nitroglycerin 0.4 mg sublingual Q5M PRN MDD 3 omega 3-hhb-eiu-fish oil 1,000 mg (120 mg-180 mg) (Fish Oil) 1 cap PO DAILY pantoprazole 40 mg PO DAILY sertraline 100 mg PO DAILY spironolactone 12.5 mg (1/2 x 25 mg) PO DAILY 90 days trazodone 100 - 200 mg PO BEDTIME verapamil ER 180 mg PO BID HPI HPI 6 mth fu (dc): Details: Caitlyn is a 43-year-old female with past medical history of hypertension, smoking, nocturnal hypoxia with home O2 use during sleep, morbid obesity who is being evaluated for chest discomfort and now presents for follow-up. Today she reports that she still has been getting random pain in her left chest. She describes the episodes as sharp and will persist until she takes nitroglycerin sublingual or choose 2 aspirins. The episodes are not brought on by exertional activities. She has some shortness of breath with activity which is not new. She has a history of asthma which has been controlled. No presyncope, syncope, falls. No PND, orthopnea or edema. 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 She is taking her meds as directed. She admits to being mostly sedentary. [facility] Medical History IgA nephropathy Cancer of left kidney Migraine headache Asthma Hypertension Myocardial infarction IgA nephropathy Surgical History Morbid obesity H/O partial nephrectomy H/O right knee surgery H/O: hysterectomy Family History Mother IgA nephropathy Breast cancer Cancer of kidney CVA (cerebral vascular accident) Maternal Uncle Tongue cancer Social History Household Members: Family Housing: House Do you presently have visiting nurse or other home services: No Alcohol intake: never Comment: sleeping Cigarette Packs Per Day: 1 Cigarettes Per Day: 20.0 service: No Current occupational status: employed Review of Systems Const All systems reviewed & are unremarkable except as noted in HPI and below ENT Denies dizziness Card Denies chest pain, Reports chest pain at rest, Denies chest pain with activity, Denies rapid heart rate, Denies pedal edema, Denies edema, Denies leg edema, Denies lightheadedness, Denies palpitations, Reports dyspnea, Reports dyspnea on exertion and Denies orthopnea Resp Denies cough, Reports dyspnea and Reports dyspnea on exertion GI Denies hematochezia and Denies change in stool character Musc Denies abnormal gait, Denies limited range of motion, Denies muscle cramps, Denies muscle weakness, Denies numbness, Denies radiating pain into limb, Denies stiffness and Denies tingling Neuro Denies abnormal gait, Denies dizziness, Denies numbness and Denies tingling Endo Denies palpitations Physical Exam Vital Signs: Last Vital Signs Pulse 76 11/25/23 12:53 BP 142/80 H 11/25/23 12:53 BMI result Body Mass Index 45.2 Const General: cooperative, healthy appearing, comfortable and no acute distress Orientation/consciousness: patient oriented x3 Neck Neck: Yes normal visual inspection Resp Effort & Inspection: normal respiratory effort Auscultation: clear to auscultation bilaterally, no crackles, no rales, no rhonchi and no wheezes Cardio Jugular venous distension: no JVD Rate: regular rate Rhythm: regular rhythm Heart sounds: S1 normal heart sound present, S2 normal heart sound present, no murmurs and no rubs Neuro General: patient oriented x3 Extrem General: Yes normal to inspection Psych Appearance: grossly normal Mental Status: mental status grossly normal Speech and movement: Normal speech and movement present Assessment & Plan Assessment & Plan (1) Chest discomfort: Code(s): R07.89 - Other chest pain Category: Medical Plan: Reports of random left-sided chest discomfort which have been persistent. The episodes will continue until she takes nitroglycerin 1-2 tablets with quick relief. If she does not have nitro she takes aspirin 2 tablets and the symptom will resolve within 15 minutes. No exertional symptoms. She says she is not able take isosorbide due to history of migraines. Cardiac risk factors of hypertension, smoking, morbid obesity, sedentary. Last echo done 02/23/2023 shows EF 60-65%, moderate left ventricular hypertrophy and grade 2 diastolic dysfunction, mild AR, [id number] elevated RV systolic pressure. Nuclear stress test done on 06/17/2023 showing normal myocardial perfusion imaging. At this time she continues to report symptoms, still nonexertional. Overall seems atypical for angina however since her pain is relieved with nitroglycerin then it could be CAD or small-vessel disease. Will check a CTA of the coronary arteries. Discuss this with her and she is agreeable to this plan. Signs and symptoms of angina reviewed with her. Emergency care if ever needed for symptoms. Cardiology follow-up 3 months, sooner if needed (2) Right ventricular dysfunction: Code(s): I51.9 - Heart disease, unspecified Category: Medical Plan: History of morbid obesity and nocturnal hypoxemia leading to increased filling pressures in her heart. Also has history of moderate persistent asthma and smoking. Follows with pulmonology Dr. Thomas. Uses O2 1 L during sleep. Echocardiogram done 02/23/2023 shows EF 60-65%, moderate LVH, grade 2 diastolic dysfunction, moderate dilated left atrium, mild aortic regurgitation, RVSP 45 mmHg. Echo from 2020 showed RVSP 55 mmHg. She has no signs of heart failure on examination. She tells me that she no longer smokes but is vaping. Continue to follow with pulmonology. Benefit of weight loss reviewed. Increase physical activity as tolerated. Blood pressure mildly elevated. Will reassess blood pressure at time of stress test. (3) Diastolic dysfunction: Code(s): I51.89 - Other ill-defined heart diseases Category: Medical Plan: Grade 2 diastolic dysfunction on recent echo (4) LVH (left ventricular hypertrophy): Code(s): I51.7 - Cardiomegaly Category: Medical Plan: Moderate LVH on last echo. This is up from mild LVH on echo in 2020. Will continue to work on good blood pressure control (5) Morbid obesity: Code(s): E66.01 - Morbid (severe) obesity due to excess calories Category: Surgical Plan: Benefit of weight loss reviewed. She is working on diet control. May benefit from bariatric program referral. (6) Hypertension: Code(s): I10 - Essential (primary) hypertension Category: Medical Qualifiers: Hypertension type: primary hypertension Qualified Code(s): I10 - Essential (primary) hypertension Plan: No med changes made at this time Plan Time spent on chart review, documentation, interview, assessment Orders: Orders Comprehensive [place]. Panel Fast Today I51.7 - Cardiomegaly, I51.89 - Other ill-defined heart diseases CT Cardiac Coronary Angio Today I10 - Essential (primary) hypertension, I51.7 - Cardiomegaly, R07.89 - Other chest pain Basic Metabolic Panel Today R07.89 - Other chest pain Lipid Panel Today E78.5 - Hyperlipidemia, unspecified Medications: New nitroglycerin 0.4 mg sublingual Q5M PRN 25 tabs 1RF Chest Pain MDD 3 Coding Level of Care Code Est Pt Level 4 (38909) Diagnoses Chest discomfort R07.89 Right ventricular dysfunction I51.9 Diastolic dysfunction I51.89 LVH (left ventricular hypertrophy) I51.7 Morbid obesity E66.01 Primary hypertension I10 Hypertension type: primary hypertension Time Spent (min) 28
== END 2023-11-25 13:21 | disposition home or self-care (01) ==
PROVIDERS: PCP Nurse Practitioner Primary Care; Visit Provider Nurse Practitioner Family
DX: R07.89 Other chest pain (principal); I51.9 Heart disease, unspecified; I51.89 Other ill-defined heart diseases; I51.7 Cardiomegaly; E66.01 Morbid (severe) obesity due to excess calories; I10 Essential (primary) hypertension
CPT/HCPCS: 99214

== ENCOUNTER → 2024-02-14 14:03 | Outpatient (RCR) | payer MEDICAID, SELFPAY ==
--- NOTE | 2020-04-11 13:08 | P.PNHO_ITS ---
Medical Summary - Medical Summary Chief complaint: Follow up Medical Summary: Diagnosis: Bilateral pulmonary emboli October 2018 Presented to emergency department with chest pain, shortness of breath and elevated troponins. CT angio showed bilateral segmental and subsegmental pulmonary emboli. Mediastinal lymphadenopathy with a subcarinal lymph node measuring 2.4 cm. Echocardiogram showed mild LV hypertrophy with grade 2 LV dysfunction, moderate left atrial enlargement, mild to moderate aortic stenosis, severe elevation of right ventricular systolic pressure. No pericardial effusion. Myocardial perfusion scan performed 11/29/[address] distal septal ischemia, LVEF 64%, transient ischemic dilatation not present. Left kidney cancer, fallopian tube cancer. Underwent left partial nephrectomy and hysterectomy. Apparently she has undergone genetic counseling because of personal and family history of cancer, genetic testing was denied by her insurance carrier. Mother was tested and was negative for any deleterious mutations. She was on anticoagulation from October [address] abdomen performed December 2018 showed a complex lesion in the left kidney measuring 2.4 x 2.3 cm. It had decreased in size from 2014. CT chest with contrast in December 2018 showed improvement in mediastinal lymphadenopathy. [facility] Medical History: Medical History (Last Updated 04/11/20 @ 13:14 by Kathy Reid MD) Asthma Cancer of left kidney Hypertension IgA nephropathy IgA nephropathy Migraine headache Myocardial infarction Family History: Family History (Last Updated 04/11/20 @ 09:13 by Perla Emery RN) Mother IgA nephropathy Breast cancer Cancer of kidney CVA (cerebral vascular accident) Maternal Uncle Tongue cancer Surgical History: Surgical History (Last Updated 04/11/20 @ 13:14 by Kathy Reid MD) H/O partial nephrectomy H/O right knee surgery H/O: hysterectomy Smoking status: Current some day smoker Home Medications and Allergies Home Medications Medication Instructions Recorded Confirmed Type Black Cohosh Menopause Complex 1 tab PO DAILY 04/11/20 04/11/20 History albuterol sulfate [ProAir HFA] 2 puff INHALATION QID PRN 04/11/20 04/11/20 History cholecalciferol (vitamin D3) 50 mcg PO DAILY 04/11/20 04/11/20 History [Vitamin D3] fluticasone propionate [Flonase] 1 spray INTRANASAL BID 04/11/20 04/11/20 History fluticasone propionate [Flovent] 2 puff INHALATION BID 04/11/20 04/11/20 History hydralazine 50 mg PO BID 04/11/20 04/11/20 History hydroxyzine HCl 50 mg PO TID PRN 04/11/20 04/11/20 History lisinopril 40 mg PO DAILY 04/11/20 04/11/20 History loratadine [Claritin] 10 mg PO DAILY 04/11/20 04/11/20 History [id number] 1 cap PO BEDTIME PRN 04/11/20 04/11/20 History [Somnicin] metoprolol succinate 150 mg PO DAILY 04/11/20 04/11/20 History multivitamin 1 tab PO DAILY 04/11/20 04/11/20 History nitroglycerin 0.4 mg SUBLINGUAL Q5M PRN 04/11/20 04/11/20 History pantoprazole 40 mg PO DAILY 04/11/20 04/11/20 History sertraline 100 mg PO DAILY 04/11/20 04/11/20 History thiamine HCl (vitamin B1) 50 mg PO DAILY 04/11/20 04/11/20 History trazodone 150 mg PO BEDTIME PRN 04/11/20 04/11/20 History verapamil 360 mg PO DAILY 04/11/20 04/11/20 History Allergies Allergy/AdvReac Type Severity Reaction Status Date / Time pork derived (porcine) Allergy Intermediate HIVES/STOMACH Unverified 03/06/20 16:52 [Pork derived (porcine)] PAIN/THROAT CLOSES ibuprofen [From Motrin] Allergy Mild GI UPSET Unverified 03/06/20 16:52 aspirin Allergy Unknown Verified 01/24/20 00:00 Motrin Allergy Unknown Uncoded 01/24/20 00:00 pork Allergy Unknown Uncoded 01/24/20 00:00 Progress Note: A/P - Time Spent With Patient Total time spent is greater than 50% in coordination of care (as documented) at patient's floor/unit and/or counseling patient:
[2020-04-11 15:03] VITALS: BP 180/91; PULSE 96; RESP 18; TEMP 36.7; O2SAT 100
--- NOTE | 2020-04-11 16:43 | P.PNHO_ITS ---
[facility] Telehealth - Telehealth Location of Provider rendering services: Office Location of Patient: Home Patient Identification confirmed using: Name, : Yes Patient verbally consented to billing insurance company: Yes Patient informed of any privacy concerns related to visit: Yes Medical Summary - Medical Summary Chief complaint: Scheduled follow-up Medical Summary: Diagnosis: Bilateral pulmonary emboli October 2018 Presented to emergency department with chest pain, shortness of breath and elevated troponins. CT angio showed bilateral segmental and subsegmental pulmonary emboli. Mediastinal lymphadenopathy with a subcarinal lymph node measuring 2.4 cm. Echocardiogram showed mild LV hypertrophy with grade 2 LV dysfunction, moderate left atrial enlargement, mild to moderate aortic stenosis, severe elevation of right ventricular systolic pressure. No pericardial effusion. Myocardial perfusion scan performed 11/29/[address] distal septal ischemia, LVEF 64%, transient ischemic dilatation not present. Left kidney cancer, fallopian tube cancer. Underwent left partial nephrectomy and hysterectomy. Apparently she has undergone genetic counseling because of personal and family history of cancer, genetic testing was denied by her insurance carrier. Mother was tested and was negative for any deleterious mutations. She was on anticoagulation from October [address] abdomen performed December 2018 showed a complex lesion in the left kidney measuring 2.4 x 2.3 cm. It had decreased in size from 2014. CT chest with contrast in December 2018 showed improvement in mediastinal lymphadenopathy Interval History Interval history: This is scheduled visit for patient, tele visit consented because of COVID-19 pandemic guidelines. Patient has been doing quite well, she has routine follow- ups with her urologist. She has been off anticoagulation for nearly a year and has been doing well. She denies any symptoms such as pleuritic chest pain, cough, shortness of breath, fever or chills. She has not had any new interim medical problems. She did undergo recent imaging because of possibility of kidney stone, she had some flank pain which has now resolved. Review of Systems - Eyes Reports as per HPI, Reports no additional eye complaints - Cardiovascular Reports no additional cardiovascular complaints - Respiratory Reports no additional respiratory complaints - Gastrointestinal Reports no additional gastrointestinal complaints Home Medications and Allergies Home Medications Medication Instructions Recorded Confirmed Type Black Cohosh Menopause Complex 1 tab PO DAILY 04/11/20 04/11/20 History albuterol sulfate [ProAir HFA] 2 puff INHALATION QID PRN 04/11/20 04/11/20 History cholecalciferol (vitamin D3) 50 mcg PO DAILY 04/11/20 04/11/20 History [Vitamin D3] fluticasone propionate [Flonase] 1 spray INTRANASAL BID 04/11/20 04/11/20 History fluticasone propionate [Flovent] 2 puff INHALATION BID 04/11/20 04/11/20 History hydralazine 50 mg PO BID 04/11/20 04/11/20 History hydroxyzine HCl 50 mg PO TID PRN 04/11/20 04/11/20 History lisinopril 40 mg PO DAILY 04/11/20 04/11/20 History loratadine [Claritin] 10 mg PO DAILY 04/11/20 04/11/20 History [id number] 1 cap PO BEDTIME PRN 04/11/20 04/11/20 History [Somnicin] metoprolol succinate 150 mg PO DAILY 04/11/20 04/11/20 History multivitamin 1 tab PO DAILY 04/11/20 04/11/20 History nitroglycerin 0.4 mg SUBLINGUAL Q5M PRN 04/11/20 04/11/20 History pantoprazole 40 mg PO DAILY 04/11/20 04/11/20 History sertraline 100 mg PO DAILY 04/11/20 04/11/20 History thiamine HCl (vitamin B1) 50 mg PO DAILY 04/11/20 04/11/20 History trazodone 150 mg PO BEDTIME PRN 04/11/20 04/11/20 History verapamil 360 mg PO DAILY 04/11/20 04/11/20 History Allergies Allergy/AdvReac Type Severity Reaction Status Date / Time pork derived (porcine) Allergy Intermediate HIVES/STOMACH Unverified 03/06/20 16:52 [Pork derived (porcine)] PAIN/THROAT CLOSES ibuprofen [From Motrin] Allergy Mild GI UPSET Unverified 03/06/20 16:52 aspirin Allergy Unknown Verified 01/24/20 00:00 Motrin Allergy Unknown Uncoded 01/24/20 00:00 pork Allergy Unknown Uncoded 01/24/20 00:00 Exam Vital signs: Vital Signs Temp 98.0 F 04/11/20 15:03 Pulse 96 04/11/20 15:03 Resp 18 04/11/20 15:03 BP 180/91 H 04/11/20 15:03 Pulse Ox 100 04/11/20 15:03 - Constitutional Present: no acute distress - Routine HEENT Exam Head: Present: normal inspection Eye: Present: EOMI Progress Note: A/P (1) Pulmonary emboli Status: Acute Assessment and plan: 1. This is a 39-year-old woman with bilateral segmental/subsegmental pulmonary emboli in October 2018. This appeared to have occurred in the setting of asthma exacerbation, smoking and moderate obesity. There is no family history of thrombophilia. Patient herself has a history of left kidney cancer, underwent partial nephrectomy at [facility] around 2014. CT angiogram also showed some nonspecific mediastinal lymphadenopathy. She was on anticoagulation from October [address] chest with contrast in December 2018 showed improvement in mediastinal lymphadenopathy. 2. Chronic leukocytosis, positive LU. Probably related to smoking. SPEP/immunofixation negative. Patient was advised about this and to stop smoking completely. She is doing well. She will now follow up with her PCP. - Time Spent With Patient Total time spent is greater than 50% in coordination of care (as documented) at patient's floor/unit and/or counseling patient: 15 - 24 minutes
--- NOTE | 2020-04-11 17:32 | PC.NURSE ---
Telephone visit completed with Dr. Reid. No need for further follow up.
== END | disposition home or self-care (01) ==
LOC: HO.ONC 04-11 14:41
PROVIDERS: PCP Nurse Practitioner Family; Visit Provider Internal Medicine
DX: Z86.711 Personal history of pulmonary embolism (principal); D72.829 Elevated white blood cell count, unspecified; Z85.528 Personal history of other malignant neoplasm of kidney; F17.200 Nicotine dependence, unspecified, uncomplicated; Z71.6 Tobacco abuse counseling
CPT/HCPCS: 99213

== ENCOUNTER 2024-06-22 14:27 | Outpatient (REF) | payer MEDICAID, SELFPAY ==
--- NOTE | ~2024-06-22 | MM_ITS ---
EXAMINATION: MM SCREENING DIGITAL BREAST TOMOSYNTHESIS, BILATERAL CLINICAL INFORMATION: Screening. Asymptomatic. COMPARISON: Mammography: Comparison is made with available priors TECHNIQUE: Digital breast mammography with tomosynthesis is performed in both the craniocaudal and mediolateral oblique views along with computer-aided detection (CAD). FINDINGS: The breasts are heterogeneously dense, which may obscure small masses (ACR BI-RADS breast composition Category c). Left marker clip. There are no significant masses, abnormal calcifications, or other abnormalities. MM/MM tomosynthesis screening BI IMPRESSION: No mammographic evidence of malignancy. ASSESSMENT: BI-RADS BI-RADS 2 - Benign Findings RECOMMENDATION: Routine annual mammography screening. 1 year F/U This examination should not preclude the clinical evaluation of a suspicious palpable abnormality. This patient's information was entered into a reminder system with a target due date for their next mammogram. Electronically signed by: Amy Nino DO 07/01/2024 10:10 AM KENZIE
== END 2024-06-22 14:28 | disposition home or self-care (01) ==
LOC: HO.MAMMO 14:27
PROVIDERS: PCP Nurse Practitioner Primary Care; Visit Provider Nurse Practitioner Primary Care
DX: Z12.31 Encounter for screening mammogram for malignant neoplasm of breast (principal)
CPT/HCPCS: 77063; 77067

== ENCOUNTER → 2024-06-22 14:45 | Outpatient (BNV) | payer MEDICAID, SELFPAY | PROVIDERS: PCP Nurse Practitioner Primary Care; Visit Provider Internal Medicine | DX: Z12.31 Encounter for screening mammogram for malignant neoplasm of breast (principal) | CPT/HCPCS: 77063; 77067 ==

== ENCOUNTER 2024-08-01 12:10 | Outpatient (AMB) | payer OTHER, SELFPAY ==
--- NOTE | 2024-08-01 12:24 | HO.NEPHOV ---
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 Required: No Accompanied by: Self / Same As Patient Allergies pork derived (porcine) [Pork derived (porcine)] Allergy (Intermediate, Verified 08/01/24 12:27) HIVES/STOMACH PAIN/THROAT CLOSES ibuprofen [From Motrin] Allergy (Mild, Verified 08/01/24 12:27) GI UPSET aspirin Allergy (Unknown, Verified 08/01/24 12:27) Unknown red dye Allergy (Verified 08/01/24 12:27) Unknown Motrin Allergy (Unknown, Uncoded 11/25/23 12:55) Unknown pork Allergy (Unknown, Uncoded 11/25/23 12:55) Unknown HPI Comments Details: I had the privilege of seeing Caitlyn in follow-up of her hypertension and proteinuria on a backdrop of IgA nephropathy. She had partial nephrectomy on the left side for a renal mass . She has gained significant weight and has a new diagnosis of DM. She was started on insulin for A1c close to 12 but is just on metformin now with A1c improving to under 7.0 She is compliant with her medications. Blood pressure has been acceptable. She has no sore throat, hematuria, headache, visual disturbances, chest pain, shortness of breath, proximal nocturnal dyspnea or orthopnea. She is tolerating her current medication regimen. She is taking her fish oil. She has no orthostatic symptoms. She avoids nonsteroidal anti-inflammatory medications. She does not have any night sweats or hematuria. She has not had any blood work or urine studies as requested prior to this visit [facility] Medical History IgA nephropathy Cancer of left kidney Migraine headache Asthma Hypertension Myocardial infarction IgA nephropathy Surgical History Morbid obesity H/O partial nephrectomy H/O right knee surgery H/O: hysterectomy Family History Mother IgA nephropathy Breast cancer Cancer of kidney CVA (cerebral vascular accident) Maternal Uncle Tongue cancer Social History Household Members: Family Housing: House Do you presently have visiting nurse or other home services: No Alcohol intake: never Comment: sleeping Cigarette Packs Per Day: 1 Cigarettes Per Day: 20.0 service: No Current occupational status: employed Review of Systems Const All systems reviewed & are unremarkable except as noted in HPI and below Physical Exam Vital Signs: Last Vital Signs Pulse 77 08/01/24 12:27 BP 138/74 08/01/24 12:27 Pulse Ox 96 08/01/24 12:27 Oxygen Delivery Method Room Air 08/01/24 12:27 BMI result Body Mass Index 43.3 Const General: comfortable and no acute distress Orientation/consciousness: patient oriented x3 HEENT Head: Yes normocephalic Mouth: Normal oral and palatal mucosa present Eyes EOM: EOMs intact bilaterally Neck Neck: Yes supple Resp Auscultation: clear to auscultation bilaterally Cardio Jugular venous distension: no JVD Rate: regular rate GI Palpation (GI): Soft to palpation Auscultation: normal bowel sounds General: Yes no CVA tenderness Back/Spine/Pelvis Back: no CVA tenderness Skin General skin exam: no rashes or lesions noted Neuro General: patient oriented x3 and moves all extremities Extrem General: Yes no pedal edema Results Reviewed Nephrology Results: Hgb 13.3 g/dl (12.0-16.0) 07/29/23 WBC 11.3 X10*3/uL (4.8-10.8) H 07/29/23 Plt Count 277 X10*3/uL (160-400) 07/29/23 Sodium 139 mmol/L (135-145) 11/25/23 Potassium 4.3 mmol/L (3.3-5.1) 11/25/23 Chloride 103 mmol/L (96-108) 11/25/23 Carbon Dioxide 30 mmol/L (22-29) H 11/25/23 BUN 12 mg/dL (9-16) 11/25/23 Creatinine 1.24 mg/dL (0.5-1.4) 11/25/23 Calcium 9.4 mg/dL (8.4-10.2) 11/25/23 Urine Creatinine 127.16 mg/dL 07/29/23 Protein/Creatinin Ratio 1.26 (<0.2) H 07/29/23 Assessment & Plan Assessment & Plan (1) CKD (chronic kidney disease) stage 3, GFR 30-59 ml/min: Code(s): N18.30 - Chronic kidney disease, stage 3 unspecified Category: Medical Qualifiers: Chronic kidney disease stage 3 subtype: stage 3a (GFR 45-59) Qualified Code(s): N18.31 - Chronic kidney disease, stage 3a (2) IgA nephropathy: Code(s): N02.8 - Recurrent and persistent hematuria with other morphologic changes Category: Medical (3) Hypertension: Code(s): I10 - Essential (primary) hypertension Category: Medical Qualifiers: Hypertension type: primary hypertension Qualified Code(s): I10 - Essential (primary) hypertension Plan Caitlyn has biopsy proven IgA nephropathy. She has H/O significant proteinuria. She has gained significant weight. She needs to lose weight and if she is unsuccessful she should be referred to weight management program in [facility]. She is on DENNY-inhibitor. She has a history of a right renal mass. She needs follow-up MRI. She needs to maintain good hydration, avoid nonsteroidal anti-inflammatory medications along with a low-sodium diet. She should be consistent in taking fish oil capsules. She needs MRI of her kidneys for follow up of her renal mass. She has seen Urology. She is tolerating statins. She will be a great candidate for Jardiance. I have ordered follow-up blood work and urine studies. Follow-up given Orders: Orders Protein Creatinine Ratio, Ur Today N02.8 - Recurrent and persistent hematuria with other morphologic changes, N18.31 - Chronic kidney disease, stage 3a Blood Urea Nitrogen Today N02.8 - Recurrent and persistent hematuria with other morphologic changes, N18.31 - Chronic kidney disease, stage 3a Electrolytes Today N02.8 - Recurrent and persistent hematuria with other morphologic changes, N18.31 - Chronic kidney disease, stage 3a Creatinine Today N02.8 - Recurrent and persistent hematuria with other morphologic changes, N18.31 - Chronic kidney disease, stage 3a Medications: New lisinopril 20 mg (2 x 10 mg) PO DAILY 90 tabs 3RF Coding Level of Care Code Est Pt Level 4 (32528) Diagnoses Stage 3a chronic kidney disease N18.31 Chronic kidney disease stage 3 subtype: stage 3a (GFR 45-59) IgA nephropathy N02.8 Primary hypertension I10 Hypertension type: primary hypertension
[2024-08-01 12:27] VITALS: BP 138/74; PULSE 77; O2SAT 96; BMI 43.3
--- OUTSIDE RECORDS SUMMARY | 2024-08-01 13:48 | XMS_ITS | Encounter Summary ---
Author Organization [facility] Address [address] [place] [address] [address] [place] [address] Care Team Providers Care Yarn Tester Name Role Phone Niki Allen ANTONI Primary Care Provider [phone] Reason for Visit * Reason Comments presistent sinus concerns Encounter Details Date Type Department Care Team ([facility] st Contact Info) Description 07/18/2024 11:00 AM EST Office Visit [facility] [address] [place], [place] [id number] Claudia Avina MD [address] [place] [address] Acute non-recurrent sinusitis, unspecified location (Primary Dx) Social History Tobacco Use Types Packs/Day Years Used Date Smoking Tobacco: Every Day Cigarettes 0.3 15 Smokeless Tobacco: Never Alcohol Use Standard Drinks/Week Comments Not Currently 0 (1 standard drink = 0.6 oz pur e alcohol) Alcohol Answer Date Recorded Frequency of Alcohol Consumption Not on file 08/05/2023 Average Number of Drinks Not on file 024 Frequency of Binge Drinking Not on file 07/21 Score 0 08/05/2023 Depression Answer Date Recorded Patient Health Questionnaire-9 Score 5 03/02/2024 Patient Health Questionnaire-9 Score 5 03/02/2024 Last PHQ-9: Questionnaire Data Not on file 0 03/02/2024 Housing Stability Answer Date Recorded What is your housing situation today? I do not have housing (Staying with others, in a hotel, in a retirement, living outside on the street, on a beach, in a car, or in a park 03/02/[address] you li ve. Do you have problems with any of the following? None of the above 03/02/2024 Food Insecurity Answer Date Recorded Within the past 12 months, y ou worried that your food would run out before you got money to buy more: Sometimes True 2023 Within the past 12 months,th e food you bought just didn't last and you didn't have enough money to get more: Sometimes True 03/02/2024 Transportation Answer Date Recorded In the past 12 months, has l ack of transportation kept you from medical appts, meetings, work or from getting things needed for daily living? Yes, it has kept me from medical appointments or getting medications. 03/02/2024 Utilities Answer Date Recorded In the past 12 months, has t he electric, gas, oil or water company threatened to shut off services in your home? Already shut Off 03/02/2024 Depression Answer Date Recorded Patient Health Questionnaire-2 Score 1 03/02/2024 Internet Access Answer Date Recorded Internet Access Q1 Yes 03/02/2024 Internet Access Q2 Not on file 03/02/2024 Comments No Sex and Gender Information Value Date Recorded Sex Assigned at Female 04/19/2022 10:14 AM EDT Legal Sex Female 10:14 AM EDT Gender Identity Female 04/19/2022 10:14 AM EDT Sexual Orientation Straight 04/19/2022 10 :14 AM EDT documented as of this encounter Last Filed Vital Signs Vital Sign Reading Time Taken Comments Blood Pressure 158/88 07/18/2024 11:24 AM EST Pulse 75 07/18/2024 10:56 AM EST Temperature 35.8 ??C (96.5 ??F) 07/18/2024 10:[address] Respiratory Rate 20 07/18/2024 10:56 AM EST Oxygen Saturation 94% 07/18/2024 10:56 AM EST Inhaled Oxygen Concentration - - Weight 119 kg (263 lb 3.2 oz) 07/18/2024 10:56 A M EST Height - - Body Mass Index 43.8 03/02/2024 1:52 PM EDT documented in this encounter Progress Notes * Claudia Avina MD - 07/18/2024 11:00 AM EST Subjective Patient ID: Caitlyn Valverde is a 44 y.o. female with past medical history of IgA nephropathy & RCC s/p partial nephrectomy (2010), asthma, pulm hypertension, tricuspid regurg, aortic valve insufficiency, h/o PE & NSTEMI, papilledema, and NEW DX of type 2 diabetes last mo. who presentsto urgent care for possible, recurrent sinusitis. PCP Niki Allen. [facility]24 for sinus congestion. Reported using Albuterol HFA 3x/day, Advair, Tylenol cold and flu, Advil. Smokes 3 cigarettes/day, vapes. Has NRT. Swabs negative. Refilled albuterol HFA with spacer. Prescribed prednisone and Flonase with initial relief but symptoms returned upon stopping prednisone. She has been using generic Afrin and pseudoephedrine with acetaminophen OTC.Has central air ducts. 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 No pets in the home. No cigarettes. + vaping tobacco. Review of Systems HENT: Positive for congestion, nosebleeds, postnasal drip, rhinorrhea, sinus pressure and sinus pain. Objective Visit Vitals BP (!) 158/88 Pulse 75 Temp 96.5 ??F (35.8 ??C) (Temporal) Resp 20 Body mass index is 43.8 kg/m??. Physical Exam HENT: Head: Normocephalic and atraumatic. Nose: Mucosal edema, congestion and rhinorrhea present. No nasal deformity or septal deviation. Right Nostril: No epistaxis. Right Turbinates: Swollen. Left Turbinates: Swollen. Problem List Items Addressed This Visit Acute non-recurrent sinusitis - Primary -discontinue OTC nasal spray -Augmentin x 10 days -continue fluticasone nasal spray -start loratadine -agdaagux on environmental triggers changes -advise may take a few weeks to resolve but let us know if symptoms persist after 2 weeks Relevant Medications amoxicillin-clavulanate (Augmentin) 875-125 MG tablet loratadine (Claritin) 10 MG tablet fluticasone (Flonase Allergy Relief) 50 MCG/ACT nasal spray Krista Borrero, am serving as a scribe to document services personally performed by Dr. Owusu, based on the patient's response to questions by provider and providers statements to me. documented in this encounter Miscellaneous Notes * Assessment & Plan Note - Claudia Avina MD - 07/18/2024 11:20 AM EST Associated Problem(s): Acute non-recurrent sinusitis -discontinue OTC nasal spray -Augmentin x 10 days -continue fluticasone nasal spray -start loratadine -agdaagux on environmental triggers changes -advise may take a few weeks to resolve but let us know if symptoms persist after 2 weeks documented in this encounter Plan of Treatment Upcoming Encounters Date Type Department Care Team (Late st Contact Info) Description 08/03/2024 11:15 AM EST Office Visit [facility] [address] [place] [address] Niki Allen ANP [address] [place] [address] documented as of this encounter Visit Diagnoses Diagnosis Acute non-recurrent sinusitis, unspecified location- Primary documented in this encounter Additional Health Concerns Assessment Noted Time PHQ-9 Depression Total Score: 5 03/02/20 24 2:07 PM EDT documented as of this encounter Care Teams Yarn Tester Relationship Specialty Start Date End Date Niki Allen ANP [address] [place] [id number] PCP - General Family Medicine 07/30/20 documented as of this encounter
--- OUTSIDE RECORDS SUMMARY | 2024-08-01 13:48 | XMS_ITS | Encounter Summary ---
Author Organization [employer] Address [address] [facility] 7t [place] [address] Care Team Providers Care Residential Sales Representative Name Role Phone Niki Allen Primary Care Provider [phone] Reason for Visit * Reason Onset Date Comments Call Back Request 04/18/2023 Encounter Details Date Type Department Care Team ([facility] Contact Info) Description 04/18/2023 Telephone [facility] MEDICINE [address] [place], [place] [phone] Niki Allen ANP [address] [place], [place] [phone] Call Back Request Social History Tobacco Use Types Packs/Day Years Used Date Smoking Tobacco: Every Day Cigarettes Smokeless Tobacco: Never Alcohol Use Standard Drinks/Week Comments Not Currently 0 (1 standard drink = 0.6 oz pur e alcohol) PHQ-2 Answer Date Recorded Patient Health Questionnaire-2 Score 0 11/04/2022 Housing Stability Answer Date Recorded What is your housing situation today? I have bubba gonzalez 04/07/[address] you li ve. Do you have problems with any of the following? None of the above 04/07/2023 Food Insecurity Answer Date Recorded Within the past 12 months, y ou worried that your food would run out before you got money to buy more: Never True 04/07/2023 Within the past 12 months,th e food you bought just didn't last and you didn't have enough money to get more: Never True Transportation Answer Date Recorded In the past 12 months, has l ack of transportation kept you from medical appts, meetings, work or from getting things needed for daily living? No 04/07/2023 Utilities Answer Date Recorded In the past 12 months, has t he electric, gas, oil or water company threatened to shut off services in your home? No 04/07/2023 Depression Answer Date Recorded Patient Health Questionnaire-2 Score 0 11/04/2022 Comments Unknown Sex and Gender Information Value Date Recorded Sex Assigned at Female 04/19/2022 10:14 AM EDT Legal Sex Female 10:14 AM EDT Gender Identity Female 04/19/2022 10:14 AM EDT Sexual Orientation Straight 04/19/2022 10 :14 AM EDT documented as of this encounter Miscellaneous Notes * Telephone Encounter - Latisha Lagunas - 04/18/2023 1:26 PM EDT Tc from Yamila with [facility] requesting to speak with a member from the Green team in regardsto pt. Yamila morton pt was sent to ER due to a Opt Nerve Swelling, states visit was 04/17/[address] Li. Also inform Visits notes were fax over same day 04/17/2023, Territory Manager General Sales transferred over to HIM to verify if notes were received. Please contact Yamila at [phone] documented in this encounter Plan of Treatment Upcoming Encounters Date Type Department Care Team (Late st Contact Info) Description 08/03/2024 11:15 AM EST Office Visit [facility] MEDICINE [address] [place] [address] Niki Allen ANP [address] [place] [address] documented as of this encounter Visit Diagnoses Not on filedocumented in this encounter Care Teams Residential Sales Representative Relationship Specialty Start Date End Date Niki Allen ANP [address] [place] [address] PCP - General Family Medicine 07/30/20 documented as of this encounter
--- OUTSIDE RECORDS SUMMARY | 2024-08-01 13:48 | XMS_ITS | Encounter Summary ---
Author Organization [employer] Address [address] [facility] [address] 7t [place] [address] Care Team Providers Care Pharmacy Grad Intern Name Role Phone Niki Allen ANTONI Primary Care Provider [phone] Encounter Details Date Type Department Care Team (Latest Contact Info) Description 07/18/2024 Travel Social History Tobacco Use Types Packs/Day Years [...] with others, in a hotel, in a correction, living outside on the street, on a [...] AM EDT documented as of this encounter Plan of Treatment Upcoming Encounters Date Type Department Care Team (Late st Contact Info) Description 08/03/2024 11:15 AM EST Office Visit [facility] MEDICINE [address] [place] [address] Niki Allen ANP [address] [place] [address] documented as of this encounter Visit Diagnoses Not on filedocumented in this encounter Additional Health Concerns Assessment Noted Time PHQ-9 Depression Total Score: 5 03/02/20 24 2:07 PM EDT documented as of this encounter Care Teams Pharmacy Grad Intern Relationship Specialty Start Date End Date Niki Allen ANP [address] [place] [phone] PCP - General Family Medicine 07/30/20 documented as of this encounter
--- OUTSIDE RECORDS SUMMARY | 2024-08-01 13:48 | XMS_ITS | Encounter Summary ---
Author Organization [employer] Address [address] [facility] 7t [place] [address] Care Team Providers Care Oil Heat Technician Name Role Phone Niki Allen Primary Care Provider [phone] Reason for Visit * Reason Comments Med Refill Encounter Details Date Type Department Care Team ([facility] st Contact Info) Description 07/27/2024 Refill [facility] MEDICINE [address] [place], [place] [phone] Niki Allen ANP [address] [place], [place] [phone] Type 2 diabetes mellitus with hyperlipidemia ([facility]/HCC) ([facility]) Social History Tobacco Use Types Packs/Day Years [...] with others, in a hotel, in a group home, living outside on the street, on a [...] Description 08/03/2024 11:15 AM EST Office Visit [facility] MEDICINE [address] [place] [address] Niki Allen ANP [address] [place] [address] documented as of this encounter Visit Diagnoses Diagnosis Type 2 diabetes mellitus with hyperlipidemia (CMS/HCC) (CMS/HCC) documented in this encounter Additional Health Concerns Assessment Noted Time PHQ-9 Depression Total Score: 5 03/02/20 24 2:07 PM EDT documented as of this encounter Care Teams Oil Heat Technician Relationship Specialty Start Date End Date Niki Allen ANP [address] [place] [address] PCP - General Family Medicine 07/30/20 documented as of this encounter
--- OUTSIDE RECORDS SUMMARY | 2024-08-01 13:48 | XMS_ITS | Encounter Summary ---
Author Organization [facility] Address [address] [place] [address] 7t [place] [address] Care Team Providers Care Safe And Vault Mechanic Name Role Phone Niki Allen Primary Care Provider Encounter Details Date Type Department Care Team (Late st Contact Info) Description 07/12/2022 Orders Only [facility] MEDICINE [address] [place] [address] [phone] Soraida Segundo LPN Social History Tobacco Use Types Packs/Day Years Used Date Smoking Tobacco: Never Assessed Comments Unknown Sex and Gender Information Value [...] Description 08/03/2024 11:15 AM EST Office Visit [facility] MEDICINE [address] [place] [phone] Niki Allen ANP [address] [place] [address] documented as of this encounter Procedures Procedure Name Priority Date/Time Associated Diagnosis Comments URINALYSIS, COMPLETE, WITH REFLEX TO CULTURE Routine 04/18/2023 7:37 PM EDT CBC WITH AUTO DIFFERENTIAL Routine 04/18/2023 2:12 PM EDT SED RATE BY MODIFIED WESTERGREN Routine 04/18/2023 2:12 PM EDT TSH Routine 04/18/2023 2:12 PM EDT HEPATIC FUNCTION PANEL Routine 04/18/2023 2:12 PM EDT BASIC METABOLIC PANEL Routine 04/18/2023 2:12 PM EDT PROTEIN CREATININE RATIO, URINE Routine 09/09/2022 10:57 AM EDT documented in this encounter Results * (ABNORMAL) Urinalysis, Complete, with Reflex to Culture (04/18/2023 7:37 PM EDT) Color Urine Yellow [facility] Appearance Urine Cloudy [facility] PH 6.5 5.0 - 9.0 [facility] Glucose Urine UA Negative Negative mg/dL [facility] Urine Blood Negative Negative [facility] Specific Backus - Urine 1.020 1.005 - 1.025 [facility] Urine Protein 300 (3+)(A) Neg-Trace mg/dL [facility] Urine Ketones Negative Negative mg/dL [facility] Nitrite Urine Negative Negative [facility] Leukocyte Esterase Urine Negative Negative [facility] RBC Urine 0-2 0 - 2 /HPF [facility] Urine WBC 0-5 0 - 5 /HPF [facility] Urine Squamous Epithelial Cell 11-20 0 - 2 /HPF [facility] Urine Bacteria 2+ None Seen [facility] Hyaline Casts, Urine 3-5 0 - 2 /LPF [facility] 04/18/2023 7:37 PM EDT 04/18/2023 7:40 PM EDT Narrative [facility] - 04/18/2023 7:50 PM EDT [id number], Clean Catch us [facility] External Provider LAB URI NE ORDERABLES Final Result [facility] [address] [place] [address] [phone] * Sed Rate by Modified Westergren (04/18/2023 2:12 PM EDT) Pathologist [facility] Erythrocyte Sedimentation Rate 17 0 - 20 MM/HR [facility] Comment:Patients with polycy themia and many hemoglobin abnormalitiesmay have depressed sed rates whereas patients with anemiamay have elevated sed rates. 04/18/2023 2:12 PM EDT 04/18/2023 5:23 PM EDT [facility] External Provider LAB BLO OD ORDERABLES Final Result Performing Organization Address [facility] Co de Phone Number [facility] [address] [place] [address] [phone] * TSH (04/18/2023 2:12 PM EDT) [facility] Thyroid Stimulating Hormone 0.65 0.32 - 4.0 uIU/mL [facility] Comment:TSH 3rd Generation ( [facility]) 04/18/2023 2:12 PM EDT 04/18/2023 2:16 PM EDT Generic External Data Provider LAB BLOOD ORDERAB LES Final Result Performing Organization Address [facility] Co de Phone Number [facility] [address] [place] [address] [phone] * (ABNORMAL) Basic Metabolic Panel (04/18/2023 2:12 PM EDT) Pathologist [facility] Sodium 141 135 - 145 mmol/L [facility] Potassium 3.9 3.3 - 5.1 mmol/L [facility] Chloride 102 96 - 108 mmol/L [facility] Carbon Dioxide 28 22 - 29 mmol/L [facility] Anion Gap 15 12 - 20 [facility] Urea Nitrogen (BUN) 12 9 - 16 mg/dL [facility] Creatinine, Serum 1.23 0.5 - 1.4 mg/dL [facility] Creatinine Clr Calc Pharmacy 77.2 [facility] Comment:Provided height and weight: 165.1 cm,119.748 kg.eGFR (calculated from the MDRD study equation) and eCrCl(calculated from the Cockcroft-Gault equation) are based ondifferent parameters and may not yield comparable results.If eCrCl result is absurd, please check patient'sheight/weight. Estimated Glomerular Filt Rate 48 [facility] Comment:NOTE: For -Am erican individuals, multiply the result by 1.210.Chronic Kidney Disease: Estimated GFR < 60 mL/min/1.76x6Thxzlo Kidney Disease: Estimated GFR < 15 mL/min/1.73m2 Glucose 144(H) 60 - 115 mg/dL [facility] Calcium 9.3 8.4 - 10.2 mg/dL [facility] 04/18/2023 2:12 PM EDT 04/18/2023 2:16 PM EDT us Generic External Data Provider LAB BLOOD ORDERAB LES Final Result [facility] [address] [place] [phone] * (ABNORMAL) Hepatic Function Panel (04/18/2023 2:12 PM EDT) Bilirubin, Total 0.4 0.0 - 1.0 mg/dL [facility] Bilirubin, Direct 0.1 0.0 - 0.5 mg/dL [facility] Aspartate Amino Transferase 20 5 - 31 U/L [facility] Alanine Aminotransferase 19 0 - 31 U/L [facility] Total Protein 8.1(H) 6.5 - 8.0 g/dL [facility] Albumin Level 3.9 3.5 - 5.0 g/dL [facility] Alkaline Phosphatase 78 39 - 117 U/L [facility] 04/18/2023 2:12 PM EDT 04/18/2023 2:16 PM EDT us [facility] External Provider LAB BLO OD ORDERABLES Final Result [facility] [address] [place] [address] [phone] * (ABNORMAL) CBC auto differential (04/18/2023 2:12 PM EDT) White Blood Count 10.5 4.8 - 10.8 X10*3/uL [facility] Red Blood Count 4.97 4.20 - 5.50 X10*6/uL [facility] Hemoglobin 13.3 12.0 - 16.0 g/dl [facility] Hematocrit 42.1 37.0 - 47.0 % [facility] Mean Corpuscular Volume 84.7 80.0 - 98.0 fL [facility] Mean Corpuscular Hemoglobin 26.8(L) 27.0 - 33.0 pg [facility] Mean Corpuscular HGB Conc 31.6 31.0 - 35.0 g/dl [facility] Red Cell Distribution Width 17.0(H) 11.0 - 16.0 % [facility] Platelet Count 298 160 - 400 X10*3/uL [facility] Mean Platelet Volume 10.9 9.4 - 12.3 fL [facility] Neutrophils Percent Auto 61.6 45 - 73 % [facility] Imm Gran Pct Auto 0.2 0.0 - 0.4 % [facility] Lymphocytes Percent Auto 28.1 20 - 40 % [facility] Monocytes Percent Auto 8.0 2 - 11 % [facility] Eosinophils Percent Auto 1.2 0 - 4 % [facility] Basophils Percent Auto 0.9 0 - 2 % [facility] NRBC Pct Auto 0.0 0.0 - 0.2 /100WBC [facility] Neutrophils Absolute Auto 6.4 2.0 - 8.3 x10*3/uL [facility] Imm Gran Abs Auto 0.02 0.00 - 0.03 X10*3/uL [facility] Lymphocytes Absolute Auto 2.9 1.2 - 4.9 X10*3/uL [facility] Monocytes Absolute Auto 0.8 0.1 - 1.2 X10*3/uL [facility] Eosinophils Absolute Auto 0.1 0.0 - 0.4 X10*3/uL [facility] Basophils Absolute Auto 0.1 0.0 - 0.2 X10*3/uL [facility] NRBC Abs Auto 0.000 0.0 - 0.012 X10*3/uL [facility] 04/18/2023 2:12 PM EDT 04/18/2023 2:16 PM EDT [facility] External Provider LAB BLO OD ORDERABLES Final Result Performing Organization Address [facility] Co de Phone Number [facility] [address] [place] [address] [phone] * (ABNORMAL) Protein Creatinine Ratio, Urine (09/09/2022 10:57 AM EDT) Creatinine, Urine 49.94 mg/dL [facility] Protein, Total, Random Urine 240(H) <12 mg/dL [facility] Protein/Creati nine Ratio, Ur 4.81(H) <0.2 [facility] Comment:The spot urine prote in:creatinine ratio may increase to 0.3during normal . 09/09/2022 10:5 7 AM EDT 09/09/2022 12:07 PM EDT [facility] External Provider LAB URI NE ORDERABLES Final Result Performing Organization Address [facility] Co de Phone Number [facility] [address] [place] [address] [phone] documented in this encounter Visit Diagnoses Not on filedocumented in this encounter Care Teams Safe And Vault Mechanic Relationship Specialty Start Date End Date Niki Allen ANP [address] [place] [phone] PCP - General Family Medicine 07/30/20 documented as of this encounter
--- OUTSIDE RECORDS SUMMARY | 2024-08-01 13:48 | XMS_ITS | Encounter Summary ---
Author Organization [employer] Address [address] [facility] 7t [place] [address] Care Team Providers Care Grain Weigher Name Role Phone Niki Allen Primary Care Provider [phone] Reason for Visit * Reason Onset Date Comments Nurse Triage 07/17/2024 Encounter Details Date Type Department Care Team ([facility] st Contact Info) Description 07/17/2024 Telephone [facility] MEDICINE [address] [place], [place] [phone] Niki Allen ANP [address] [place] [address] Nurse Triage Social History Tobacco Use Types Packs/Day Years [...] with others, in a hotel, in a fpc, living outside on the street, on a [...] encounter Miscellaneous Notes * Telephone Encounter - Jackeline Kelly RN - 07/17/2024 10:55 AM EST called pt to triage, spoke to pt. pt states seen 06/19 in the walk in center for sinus congestion and was given Prednisone which helped for a while. pt states the last week or so getting worse again.pt denies known fevers, severe cough, severe or sustained sob, vomiting, or other associated symptoms. given appt tomorrow with green team provider at 11:00 for exam. advised home care: rest, fluids,steam, humidifier, monitor temperature, OTC pain or fever reliever as needed, and call back if worsening or new concerns. pt understands and agrees with plan. insurance verified. Protocol Used: Sinus Pain or Congestion (Adult) Protocol-Based Disposition: See in Office or Video Visit Today or Tomorrow Video visit offer not recorded Positive Triage Question: * Patient wants to be seen * All higher-acuity triage questions were negative Care Advice Discussed: * Reassurance and Education - Colds and Sinus Congestion * For a Runny Nose - Blow Your Nose * Nasal Washes for a Stuffy Nose * Hydration * Reasons To Call Back - Severe pain lasts over 2 hours after pain medicine - Sinus pain lasts over 1 day after using nasal washes - Sinus congestion (fullness) lasts over 10 days - Fever lasts over 3 days - You become worse * Telephone Encounter - Delia Joe - 07/17/2024 9:49 AM EST Symptoms: Chest Congestion, Runny Nose Outcome: Schedule an appointment to be seen within 24 hours Reason: Caller denied all higher acuity questions The caller accepted this outcome. [phone] documented in this encounter Plan of Treatment Upcoming Encounters Date Type Department Care Team (Late st Contact Info) Description 08/03/2024 11:15 AM EST Office Visit [facility] MEDICINE [address] [place] [address] Niki Allen ANP [address] [place] [address] documented as of this encounter Visit Diagnoses Not on filedocumented in this encounter Additional Health Concerns Assessment Noted Time PHQ-9 Depression Total Score: 5 03/02/20 24 2:07 PM EDT documented as of this encounter Care Teams Grain Weigher Relationship Specialty Start Date End Date Niki Allen ANP [address] [place] [phone] PCP - General Family Medicine 07/30/20 documented as of this encounter
--- OUTSIDE RECORDS SUMMARY | 2024-08-01 13:49 | XMS_ITS | Clinical Summary ---
Author Organization [facility] Address [address] [place] [address] Phone Care Team Providers Care Electronic Science Teacher Name Role Phone Niki Allen [employer] Primary Care Provider Unavailabl e Allergies Active Allergy Reactions Criticality Noted Date Comments Aspirin Other (see comments) 01/16/2014 Ibuprofen Other (see comments) 01/16/2014 Other reaction(s): hives/chest tightness Other Other (see comments) 01/16/2014 Pork. Pork Allergy 08/07/2020 Red Dye #40 (Allura Red) 08/07/2020 Medications albuterol HFA (PROVENTIL HFA;VENTOLIN HFA) 108 (90 Base) MCG/ACT inhaler Inhale as needed Active diphenhydrAMINE (BENADRYL) 25 MG capsule Take 1 capsule by mouth every night Active hydrOXYzine (ATARAX) 50 MG tablet Take 1 tablet by mouth 2 (two) times a day Active loratadine (CLARITIN) 10 MG tablet Take 1 tablet by mouth 1 (one) time each day Active nitroglycerin (NITROSTAT) 0.4 MG SL tablet Active omeprazole OTC (PriLOSEC OTC) 20 MG EC tablet Take 1 tablet by mouth 1 (one) time each day Active traZODone (DESYREL) 50 MG tablet Take 100 mg by mouth every night Active verapamil ER (VERELAN) 180 MG 24 hr capsule Take 1 capsule by mouth 2 (two) times a day Active alpha tocopherol (VITAMIN E) 400 units capsule Take 1 capsule by mouth 1 (one) time each day Active cholecalciferol (VITAMIN D-3) 50 MCG (2000 UT) capsule Take 2,000 Units by mouth daily Active sertraline (ZOLOFT) 100 MG tablet Take 1 tablet by mouth 1 (one) time each day in the morning 1 Active melatonin 3 MG tablet Take 1 tablet by mouth every night 1 Active fluticasone (FLONASE) 50 MCG/ACT nasal spray Administer 2 sprays into each nostril every morning if needed 1 Active pantoprazole (PROTONIX) 40 MG EC tablet Take 1 tablet by mouth 1 (one) time each day in the morning 1 Active hydrOXYzine (VISTARIL) 50 MG capsule 3 (three) times a day 2 Active Advair Diskus 250-50 MCG/ACT aerosol powder Inhale 1 puff 2 (two) times a day 2 Active metoprolol succinate XL (TOPROL-XL) 100 MG 24 hr tablet Take 1.5 tablets (150 mg total) by mouth 1 (one) time each day Do not crush or chew. 135 tablet 3 3 Active lisinopril 10 MG tablet Take 2 tablets (20 mg total) by mouth 1 (one) time each day 180 tablet 3 3 Active cloNIDine (CATAPRES) 0.1 MG tablet TAKE 1 TABLET BY MOUTH TWICE A DAY 60 tablet 3 3 Active Active Problems Problem Noted Date Diagnosed Date Hypertension 03/04/2021 Benign essential hypertension 08/07/2020 Blood in urine 08/07/2020 Nephritis 08/07/2020 Proteinuria 08/07/2020 History of partial nephrectomy 01/28/2014 Overview (01/13/2022): Partial Nephrectomy Malignant tumor of kidney parenchyma 01/28/2014 Overview (01/13/2022): Renal Carcinoma Neoplasm of kidney 01/28/2014 Overview (01/13/2022): Renal Neoplasm Family History Medical History Relation Comments Cancer Mother Hypertension Mother Kidney disease Mother Stroke Mother Relation Status Comments Father Alive Mother Alive Social History Tobacco Use Types Packs/Day Years Used Date Smoking Tobacco: Former Cigarettes Q uit: 06/20/2013 Smokeless Tobacco: Never Tobacco Cessation:Counseling Given: Not Answered Comments:Smoking History Info:Every day Alcohol Use Standard Drinks/Week Comments No 0 (1 standard drink = 0.6 oz pur e alcohol) Comments Unknown Sex and Gender Information Value Date Recorded Sex Assigned at Not on file Legal Sex Female 5:03 PM EST Gender Identity Not on file Sexual Orientation Not on file Last Filed Vital Signs Vital Sign Reading Time Taken Comments Blood Pressure 120/70 09/08/2022 4:48 PM EDT Pulse 51 09/08/2022 4:48 PM EDT Temperature - - Respiratory Rate - - Oxygen Saturation 97% 11/19/2020 4:21 PM EDT Inhaled Oxygen Concentration - - Weight 122 kg (268 lb 3.2 oz) 09/08/2022 4:48 PM EDT Height 162.6 cm (5' 4 ) 10/03/2019 12:00 PM EDT Body Mass Index 46.04 10/03/2019 12:00 PM EDT Plan of Treatment Health Maintenance Due Date Last Done Comments Pneumococcal Vaccine: Pediat rics (0 to 5 Years) and At-Risk Patients (6 to 64 Years) (1 of 2 - PCV) 1986 Hepatitis B Vaccine (1 of 3 - 19+ 3-dose series) 06/10 Influenza Vaccine (#1) 2024 Insurance [place]ID [place] Care Teams Electronic Science Teacher Relationship Specialty Start Date End Date Niki Allen NP PCP - General Nurse Practitioner 01/13/22
--- OUTSIDE RECORDS SUMMARY | 2024-08-01 13:49 | XMS_ITS | Clinical Summary ---
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 Pork Extract Anaphylaxis High 08/07/2020 Varenicline 08/17/2016 Other reaction(s): hives & hallucinations Medications atorvastatin (LIPITOR) 20 mg tablet Take 1 tablet (20 mg total) by mouth 1 (one) time each day in the morning. 4 Active cholecalciferol (VITAMIN D-3) 50 mcg (2,000 unit) capsule Take 1 capsule (2,000 Units total) by mouth daily. 1 Active lisinopriL (PRINIVIL,ZESTR IL) 10 mg tablet Take 2 tablets (20 mg total) by mouth daily. 3 Active metFORMIN (GLUCOPHAGE) 500 mg tablet Take 1 tablet (500 mg total) by mouth 2 times daily. 4 Active loratadine (CLARITIN) 10 mg tablet Take 1 tablet (10 mg total) by mouth daily. 4 08/17/19 25 Active pantoprazole (PROTONIX) 40 mg EC tablet Take 1 tablet (40 mg total) by mouth 1 (one) time each day in the morning. 1 Active traZODone (DESYREL) 100 mg tablet Take 1 tablet (100 mg total) by mouth at bedtime. 4 Active verapamil SR (CALAN-SR) 180 mg CR tablet Take 1 tablet (180 mg total) by mouth 1 (one) time each day with breakfast. 4 Active spironolactone (ALDACTONE) 25 mg tablet Take 0.5 tablets (12.5 mg total) by mouth daily. Active sertraline (ZOLOFT) 100 mg tablet Take 1 tablet (100 mg total) by mouth 1 (one) time each day. 1 Active omeprazole OTC (PriLOSEC OTC) 20 mg EC tablet Take 1 tablet (20 mg total) by mouth 1 (one) time each day. Active nitroglycerin (NITROSTAT) 0.[address] 1 tablet (0.4 mg total) under the tongue every 5 (five) minutes if needed for chest pain. 3 Active nicotine polacrilex (NICORETTE) 2 mg gum Chew 1 each (2 mg total) every 1 (one) hour if needed for smoking cessation. 4 Active metoprolol succinate (TOPROL-XL) 100 mg 24 hr tablet Take 1.5 tablets (150 mg total) by mouth 1 (one) time each day. 3 Active insulin glargine (Lantus Solostar U-100 Insulin) 100 unit/mL (3 mL) injection pen Inject 10 Units under the skin at bedtime. 4 02/01/20 25 Active hydrOXYzine HCL (ATARAX) 50 mg tablet Take 1 tablet (50 mg total) by mouth 2 (two) times a day. Active fluticasone propionate (FLONASE) 50 mcg/actuation nasal spray Administer 1 spray into each nostril daily. 5 07/18/19 26 Active albuterol HFA (PROAIR HFA ; PROVENTIL HFA ; VENTOLIN HFA) 90 mcg/actuation inhaler Inhale 2 puffs by mouth every 4 (four) hours if needed for shortness of breath. 4 Active Active Problems Problem Noted Date Diagnosed Date Acute non-recurrent sinusitis 07/18/2024 Type 2 diabetes mellitus with hyperlipidemia Overview (07/19/2024): new dx 01/2024, metformin 500mg BID, lantus 10 units with plan to increase Cigarette nicotine dependence without complicati on 08/15/2023 Mixed hyperlipidemia 08/15/2023 Hypoxia 12/08/2022 Pulmonary hypertension 12/08/2022 Overview (07/19/2024): Follows w/ [facility] [place] Cards BP meds: Verapamil 180mg ER 2 tabs daily Hydralazine 50mg BID Lisinopril 10mg 2 tabs daily Spironolactone 25mg tab 0.5 tab daily Stress test 06/2023 cardiolite stress test impression: 1. Myocardial perfusion imaging study shows likely normal myocardial perfusion. 2. Gated LVEF is 53% during stress and 59% during rest. 3. Transient ischemic dilatation not present. Vitamin D deficiency 12/08/2022 Nonrheumatic aortic valve insufficiency 09/20/19 23 Nonrheumatic tricuspid valve regurgitation 09/19 Hypertension 03/04/2021 Benign essential hypertension 08/27/2015 IgA nephropathy 08/27/2015 Mild persistent asthma 08/27/2015 History of partial nephrectomy 01/28/2014 Overview (07/19/2024): Partial Nephrectomy Partial Nephrectomy Malignant tumor of kidney parenchyma 01/28/2014 Overview (07/19/2024): Renal Carcinoma Immunizations Name Administration Dates Next Due Hepatitis B Pediatric (Enger ix B; Recombivax HB) to less than 20 yo 01/08/1998,08/14/1997,04/17/1997 Influenza Quadrivalent, 0.5m l, preservative free (Fluarix; FluLaval; Fluzone) ages 6mo and older (Afluria) 3yo and older 05/28/2019,05/22/2018 Influenza Quadrivalent, with preservative (Fluzone; Afluria) 6mo and older 03/09/2017,04/29/2016 Influenza Split 03/30/2013,03/09/2012 Influenza trivalent, 0.5mL, preservative free (Fluarix; FluLaval; Fluzone) ages 6mo and older (Afluria) 3 years and older 06/01/2024 Influenza trivalent, with pr eservative (Fluzone; Afluria) 6mo and older 03/26/2014 Pneumococcal polysaccharide 23 valent (Pneumovax 23) 2yo and older 11/01/2018,12/31/2010 Pneumococcal, Unspecified 12/31/2010 Td Tetanus diptheria (Tdvax) 7yo and older 02/24,04/02/2002 Tdap Tetanus diptheria acell ular pertussis (Boostrix; Adacel) 7yo and older 12/31/2010 Surgical History Surgery Date Site/Laterality Comments PARTIAL NEPHRECTOMY Social History Tobacco Use Types Packs/Day Years Used Date Smoking Tobacco: Never Assessed Comments Unknown Sex and Gender Information Value Date Recorded Sex Assigned at Not on file Legal Sex Female 11:05 AM EDT Gender Identity Not on file Sexual Orientation Not on file Obstetrics History Plan of Treatment Upcoming Encounters Date Type Department Care Team (Late st Contact Info) Description 03/19/2025 10:30 AM EDT Office Visit Bariatric Surgery - [place] [address] [facility] [address] [place] [address] Liv Cartagena PA [address] [facility] [address] [place] [address] Health Maintenance Due Date Last Done Comments Breast Cancer Screening 1980 Diabetes: Annual GFR (Glomerular Filtration Rate) 1980 Diabetes: Annual Foot Exam 1990 Diabetes: Annual Retina Eye Exam 1990 Hepatitis A Vaccines (1 of 2 - Risk 2-dose series) 1999 Cervical Cancer Screening: Pap Smear 2001 Pneumococcal Vaccine: Pediatrics (0 to 5 Years) and At-Risk Patients (6 to 64 Years) (3 of 3 - PCV) 11/02/2019 11/01/2018, 12/31/2010, 12/31/2010 COVID-19 Vaccine (2 - Moderna risk series) 12/02/2022 11/04/2022 HIV Screening 01/20/2024 Hepatitis C Screening 01/20/2024 Social Influencers of Health Screening 01/20/2024 Diabetes: Annual Urine Albumin-Creatinine Ratio (uACR) 07/19/2024 Hypertension/CHF/CAD Annual BMP Blood Test 07/19/2024 Diabetes: Blood Sugar Control Test (HGBA1C) 11/30/2024 06/01/2024 Depression Screening 03/02/2025 03/02/2024 Cholesterol Screening (Lipid Panel) 11/24/2028 11/25/2023 DTaP,Tdap,and Td Vaccines (4 - Td or Tdap) 02/24/2031 02/24/2021, 12/31/2010, 04/02/2002 Hepatitis B Vaccines Completed 01/08/1998, 08/14/1997, 04/17/1997 Influenza Vaccine Completed 06/01/2024, , 05/22/2018, Additional history exists HIB Vaccines Aged Out No longer eligi ble based on patient's age to complete this topic HPV Vaccines Aged Out No longer eligi ble based on patient's age to complete this topic IPV Vaccines Aged Out No longer eligi ble based on patient's age to complete this topic MMR Vaccines Aged Out No longer eligi ble based on patient's age to complete this topic Meningococcal ACWY Vaccine Aged Out N o longer eligible based on patient's age to complete this topic RSV Immunization Patients Under 20 months Aged Out No longer eligible based on patient's age to complete this topic Varicella Vaccines Aged Out No longer eligible based on patient's age to complete this topic Insurance MEDICAID - [place] [employer] 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
--- OUTSIDE RECORDS SUMMARY | 2024-08-01 13:49 | XMS_ITS | Clinical Summary ---
Author Organization [employer] Address [address] [facility] 7[address] [place] [address] Care Team Providers Care Collar Sewer Name Role Phone Chapo Dial ANTONI Primary Care Provider [phone] Allergies Active Allergy Reactions Criticality Noted Date Comments Aspirin Unknown 03/30/2013 Other reaction(s): Other (See Comments) Ibuprofen Other 01/04/2012 Other reaction(s): hives/chest tightness, Other (see comments) No NSAIDS per renal Metronidazole 01/02/2016 Other reaction(s): local itching reaction to cream Pork Allergy Anaphylaxis High 08/07/2020 Red Dye #40 (Allura Red) 08/07/2020 Varenicline 08/17/2016 Other reaction(s): hives & hallucinations Medications Blood Pressure kitIndications:Pu lmonary hypertension (CMS/HCC),Benign essential hypertension 1 kit in the morning. 1 kit 023 Active cloNIDine (Catapres) 0.1 MG tablet Take 0.1 mg by mouth 2 times daily. 023 Active Advair Diskus 250-50 MCG/ACT aerosol powder Inhale 1 puff 2 times daily. 023 Active nitroglycerin (Nitrostat) 0.4 MG SL tablet TAKE 1 TABLET BY SUBLINGUAL ROUTE NEEDED FOR CHEST PAIN. IF NO RELIEF, GO TO ER 023 Active sertraline (Zoloft) 100 MG tablet Take 100 mg by mouth in the morning. 023 Active omega-3 (Fish Oil) 1000 MG capsule Take 1,000 mg by mouth. 016 Active hydrALAZINE (Apresoline) 50 MG tablet Take 1 tablet by mouth 2 times daily. Active hydrOXYzine pamoate (Vistaril) 50 MG capsule Take 1 capsule by mouth if needed in the morning, at noon, and at bedtime for anxiety or sleep. Active Melatonin Maximum Strength 5 MG tablet TAKE 1 TO 2 TABLETS BY MOUTH AT BEDTIME NEEDED Active spironolactone (Aldactone) 25 MG tablet Take 0.5 tablets by mouth 1 (one) time each day. Active nicotine polacrilex (Nicorette) 2 MG gumIndications:Co ntinuous dependence on cigarette smoking CHEW 1 EACH (2 MG) IF NEEDED FOR SMOKING CESSATION. 110 each 2 Active triamcinolone (Kenalog) 0.1 % creamIndications: Rash APPLY TOPICALLY 2 TIMES DAILY FOR UP TO 28 DAYS 30 g 1 Active atorvastatin (Lipitor) 20 MG tabletIndications :Mixed hyperlipidemia TAKE 1 TABLET BY MOUTH EVERY DAY IN THE MORNING 90 tablet 1 Active loratadine (Claritin) 10 MG tabletIndications :Non-seasonal allergic rhinitis due to other allergic trigger TAKE 1 TABLET BY MOUTH EVERY DAY ONE DOSE 90 tablet 1 Active insulin glargine (Lantus SoloStar) 100 UNIT/ML penIndications:Ne wly diagnosed diabetes ([facility]) Inject 10 Units under the skin at bedtime. 3 mL 2 024 2024 Active pen needle 32G x 4 mm [facility] Use to inject Lantus once per day 100 each 12 Active pantoprazole (ProtoNix) 40 MG EC tabletIndications :Heartburn TAKE 1 TABLET BY MOUTH EVERY DAY IN THE MORNING 90 tablet 1 Active verapamil SR (Calan SR) 180 MG ER tabletIndications :Essential hypertension TAKE 2 TABLETS BY MOUTH EVERY DAY WITH FOOD 180 tablet 1 Active traZODone (Desyrel) 100 MG tabletIndications :Insomnia, unspecified type TAKE 1 TO 2 TABLETS BY MOUTH AT BEDTIME NEEDED FOR SLEEP 180 tablet Active lisinopril 10 MG tabletIndications :Benign essential hypertension Take 2 tablets (20 mg) by mouth Once per day. 60 tablet Active albuterol (Ventolin HFA) 108 (90 Base) MCG/ACT inhalerIndication s:Mild persistent asthma with acute exacerbation Inhale 2 puffs Every 4-6 hours as needed for wheezing or shortness of breath. 18 g 3 Active Spacer/Aero-Holdi ng Chambers (OptiChamber Trish) misc 1 each every 4 (four) hours if needed (asthma). 1 each Active loratadine (Claritin) 10 MG tabletIndications :Acute non-recurrent sinusitis, unspecified location Take 1 tablet (10 mg) by mouth Once per day. 30 tablet 025 2024 Active fluticasone (Flonase Allergy Relief) 50 MCG/ACT nasal sprayIndications: Acute non-recurrent sinusitis, unspecified location Administer 1 spray into each nostril Once per day. Shake gently. Before first use, prime pump. After use, clean tip and replace cap. 16 g 2 025 2025 Active metFORMIN (Glucophage) 500 MG tabletIndications :Type 2 diabetes mellitus with hyperlipidemia (CMS/HCC) ([facility]) TAKE 1 TABLET BY MOUTH TWICE A DAY 180 tablet 1 Active metFORMIN (Glucophage) 500 MG tabletIndications :Type 2 diabetes mellitus with hyperlipidemia (CMS/HCC) ([facility]) Take 1 tablet (500 mg) by mouth 2 times daily. 180 tablet 1 024 2024 Discontinued fluticasone (Flonase Allergy Relief) 50 MCG/ACT nasal spray Administer 1 spray into each nostril Once per day. Shake gently. Before first use, prime pump. After use, clean tip and replace cap. 16 g 2 024 2024 Discontinued(R eorder (will not trigger notification to Pharmacy)) amoxicillin-clavu lanate (Augmentin) 875-125 MG tabletIndications :Acute non-recurrent sinusitis, unspecified location Take 1 tablet by mouth 2 times daily for 10 days. 20 tablet 025 2024 Hospital, Clinic, or Other Facility Administered Medication Ordered Dose Route Frequency Start Date End Date Status Insulin Lispro solution 10 UnitsIndications:Newly diagnosed diabetes (CMS/[facility]) 10 Units IJ Once Daily 02/01/2024 Active Active Problems Problem Noted Date Diagnosed Date Acute non-recurrent sinusitis 07/18/2024 Assessment & Plan (07/18/2024 11:20 AM EST): -discontinue OTC nasal spray -Augmentin x 10 days -continue fluticasone nasal spray -start loratadine -[place] on environmental triggers changes -advise may take a few weeks to resolve but let us know if symptoms persist after 2 weeks Class 3 severe obesity with serious comorbidity and body mass index (BMI) of 40.0 to 44.9 in adult 03/30/2024 Type 2 diabetes mellitus with hyperlipidemia (CM S/HCC) 02/13/2024 Overview (02/13/2024): new dx 01/2024, metformin 500mg BID, lantus 10 units with plan to increase Newly diagnosed diabetes 02/01/2024 Assessment & Plan (02/01/2024 2:26 PM EDT): - A1c 11.2, RBG 344 - Improved to 327 s/p 10 units lispro - Currently asymptomatic, although has been experiencing polydipsia, polyuria, and polyphagia over the past 1-2 weeks - Education provided re: pathophysiology of diabetes. Initial teaching completed. Plan: BG monitor to be purchased at [facility] (better cost d/t lack of current insurance). Monitor fasting, before bed, and 1 post-prandial reading daily for the next 2 weeks Start metformin 500mg BID Start lantus 10 units nightly. Reviewed med use and safety Follow up in 1-2 weeks with PCP, sooner as needed ED precautions reviewed Cigarette nicotine dependence without complicati on 08/15/2023 Mixed hyperlipidemia 08/15/2023 Papilledema 04/26/2023 Hypoxia 12/08/2022 Pulmonary hypertension 12/08/2022 Overview (08/15/2023): Follows w/ C Cards BP meds: Verapamil 180mg ER 2 [...] deficiency 12/08/2022 Nonrheumatic aortic valve insufficiency 09/20/19 Nonrheumatic tricuspid valve regurgitation 09/19 Nephritis 08/07/2020 Benign essential hypertension 08/27/2015 Assessment & Plan (02/01/2024 2:27 PM EDT): Elevated in office, have been elevated in past as well Follow with cards ED precautions IgA nephropathy 08/27/2015 Mild persistent asthma 08/27/2015 Allergic rhinitis 08/27/2015 History of partial nephrectomy 01/28/2014 Overview (09/19/2022): Partial Nephrectomy Partial Nephrectomy Neoplasm of kidney 01/28/2014 Overview (09/19/2022): Renal Neoplasm Renal Neoplasm Encounters Date Type Department Care Team Description 07/27/2024 Refill [facility] [place] [address] Chapo Dial ANP Type 2 diabetes mellitus with hyperlipidemia (CMS/HCC) (CMS/HCC) 07/18/2024 11:00 AM EST Office Visit [facility] [place] [address] Claudia Avina MD Acute non-recurrent sinusitis, unspecified location (Primary Dx) 07/18/2024 Travel 07/17/2024 Telephone [facility] [place] [address] Chapo Dial ANP Nurse Triage 06/22/2024 Orders Only [facility] [place] [address] Chapo Dial ANP 06/19/2024 9:40 AM EST Office Visit [facility] [address] [place] [address] Jarocho Austin MD Mild persistent asthma with acute exacerbation (Primary Dx); Benign essential hypertension; Congestion of nasal sinus 06/19/2024 Telephone [facility] [address] [place] [address] Chapo Dial ANP Nurse Triage 06/01/2024 11:00 AM EST Office Visit [facility] [address] [place] [address] Chapo Dial ANP Type 2 diabetes mellitus with hyperlipidemia (CMS/HCC) (CMS/HCC) (Primary Dx); Encounter for immunization; Pulmonary hypertension (CMS/HCC); Mixed hyperlipidemia; Benign essential hypertension 06/01/2024 Travel 05/25/2024 Travel 05/25/2024 Refill [facility] [address] [place] [address] Chapo Dial ANP Insomnia, unspecified type 05/19/2024 Refill [facility] [address] [place] [address] Chapo Dial ANP Heartburn; Essential hypertension from Last 3 Months Immunizations Name Administration Dates Next Due Hep B, Adolescent or Pediatric 01/08/1998,1997,04/17/1997 Influenza injectable quadriv alent IIV4 with preservative 03/09/2017,04/29/2016 Influenza injectable quadriv alent preservative free 05/28/2019,05/22/2018 Influenza, IIV3, injectable 03/26/2014 Influenza, Split (incl. jr fied surface antigen) 03/30/2013,03/09/2012 Influenza, seasonal, injecta ble, preservative free 06/01/2024 Moderna Covid-19 Vaccine 6+ Bivalent 11/04/2022 Pneumococcal Polysaccharide PPSV23 11/01/2018, Pneumococcal, Unspecified 12/31/2010 TD (adult), 2 Lf tetanus tox oid, preservative free, adsorbed 02/24/2021,04/02/2002 Tdap 12/31/2010 Family History Medical History Relation Name Comments Arthritis Maternal Grandmother Carmina Cooper Colon Asthma Maternal Grandmother Carmina Cooper Colon Depression Maternal Grandmother Carmina Cooper Colon Diabetes Maternal Grandmother Carmina Cooper Colon Mental illness Maternal Grandmother Carmina Cooper Colon Asthma Mother Umm Valverde Cancer Mother Umm Valverde Depression Mother Umm Valverde Heart disease Mother Umm Valverde Hypertension Mother Umm Valverde Kidney disease Mother Umm Valverde Cancer Mother's Brother Dru Valverde Relation Name Status Comments Maternal Grandmother Carmina Cooper Colon Mother Umm Valverde Mother's Brother Dru Valverde Social History Tobacco Use Types Packs/Day Years [...] with others, in a hotel, in a alf, living outside on the street, on a [...] Orientation Straight 04/19/2022 10 :14 AM EDT Last Filed Vital Signs Vital Sign Reading [...] oz) 07/18/2024 10:56 A M EST Height 165.1 cm (5' 5 ) 03/02/2024 1:52 PM EDT Body Mass Index 43.8 03/02/2024 1:52 PM EDT Plan of Treatment Upcoming Encounters Date Type Department Care Team (Late st Contact Info) Description 08/03/2024 11:15 AM EST Office Visit [facility] [address] [place] [address] Chapo Dial ANP [address] [place] [address] Health Maintenance Due Date Last Done Comments HIV Screening 1980 Diabetes: Foot Exam 1990 Eye Exam 1990 Family Planning (PISQ) 1995 Hepatitis C Screening 1998 Hepatitis A Vaccines (1 of 2 - Risk 2-dose series) 1999 Pneumococcal Vaccine: Pediatrics (0 to 5 Years) and At-Risk Patients (6 to 49) Years) (2 of 2 - PCV) 11/02/2019 11/01/2018, 12/31/2010, 12/31/2010 COVID-19 Vaccine ( season) 2024 11/04/2022, 11/28/2020, 10/31/2020 Diabetes: Urine Protein Screening 07/29/2024 07/29/2023, 09/09/2022 Alcohol/Substance Use Screening 08/05/2024 08/05/2023 Lipid Panel 11/24/2024 11/25/2023, 11/09/2022 Diabetes: Hemoglobin A1C 11/30/2024 024, 02/13/2024, 02/01/2024, Additional history exists Depression Screening 03/02/2025 03/02/2024, 03/02/20 24 SDOH Screening 03/02/2025 03/02/2024 Tobacco Screening 06/19/2025 06/19/2024 Mammogram 06/22/2025 06/22/2024, 08/2024, 06/22/2024, Additional history exists Zoster Vaccines (1 of 2) 2030 DTaP/Tdap/Td Vaccines (3 - Td or Tdap) 02/24/2031 02/24/2021, 12/31/2010, 04/02/2002 RSV Patients and Patients Aged 60 years or older (1 - 1-dose 75+ series) 2055 Hepatitis B Vaccines Completed 01/08/1998, 08/14/1997, 04/17/1997 Cervical Cancer Screening Discontinued HPV/Cotest Discontinued 11/18/2015 Pap Smear Discontinued 11/18/2015 Influenza Vaccine Completed 06/01/2024, , 05/22/2018, Additional history exists HIB Vaccines Aged Out No longer eligi ble based on patient's age to complete this topic HPV Vaccines Aged Out No longer eligi ble based on patient's age to complete this topic IPV Vaccines Aged Out No longer eligi ble based on patient's age to complete this topic Meningococcal Vaccine Aged Out No genoveva anel eligible based on patient's age to complete this topic RSV under 20 months Aged Out No longe r eligible based on patient's age to complete this topic Rotavirus Vaccines Aged Out No longer eligible based on patient's age to complete this topic Procedures Procedure Name Priority Date/Time Associated Diagnosis Comments BI MAMMOGRAM SCREENING TOMOSYNTHESIS BILATERAL Routine 06/22/2024 2:30 PM EST POCT INFLUENZA A (ID NOW RAPID MOLECULAR) Routine 06/19/2024 9:59 AM EST Congestion of nasal sinus POC CORADO ID NOW STREP A Routine 06/19/2024 9:58 AM EST Congestion of nasal sinus POCT RAPID COVID ANTIGEN Routine 06/19/2024 9:56 AM EST Congestion of nasal sinus POCT GLYCATED HEMOGLOBIN, TOTAL Routine 06/01/2024 11:57 AM EST Type 2 diabetes mellitus with hyperlipidemia (CMS/HCC) (CMS/HCC) POCT GLUCOSE Routine 06/01/2024 11:49 AM EST Type 2 diabetes mellitus with hyperlipidemia (CMS/HCC) (CMS/HCC) LIPID PANEL, STANDARD Routine 11/25/2023 1:39 PM EDT PROTEIN CREATININE RATIO, URINE Routine 07/29/2023 12:03 PM EST HM PAP/HPV Routine 11/18/2015 from Last 3 Months or Most Recently Relevant to Health Maintenance Results * BI Mammogram Screening Tomosynthesis Bilateral (06/22/2024 2:30 PM EST) Anatomical Region Laterality Modality Breast Bilateral Mammography 06/22/2024 2:30 PM EST Narrative 07/01/2024 10:13 AM EST ? [facility] ? [address] ?[place] [address] ? Mammography Report ? Signed ? Patient: Valdo Valverde,Caitlyn Gracy ?MR#: ?? [id number] ? : 1980 ?Acct:[id number] ? Age/Sex: 44 / F ?ADM Date: 01/03/25 ? Loc: HO.MAMMO ? Attending Dr: Chapo Dial STRESS TEST TECHNICIAN ? Ordering Physician: CHAPO DIAL NP ?Results: 2Benign Fin ?? dings ? Date of Service: 06/22/24 ?Follow Up: 1 Year From Orig ?? inal Mammogram ? Procedure(s): MM tomosynthesis screening BI ?? Accession Number(s): [id number] ? cc: CHAPO DIAL NP ? EXAMINATION: ?? MM SCREENING DIGITAL BREAST TOMOSYNTHESIS, BILATERAL ? CLINICAL INFORMATION: ? Screening. Asymptomatic. ? COMPARISON: ?? Mammography: Comparison is made with available priors ? TECHNIQUE: ?? Digital breast mammography with tomosynthesis is performed in both the ?? craniocaudal and mediolateral oblique views along with computer-aided ?? detection (CAD). ? FINDINGS: ?? The breasts are heterogeneously dense, which may obscure small masses ?? (ACR BI-RADS breast composition Category c). ?? Left marker clip. ?? There are no significant masses, abnormal calcifications, or other ?? abnormalities. ? MM/MM tomosynthesis screening BI ?? IMPRESSION: ?? No mammographic evidence of malignancy. ? ASSESSMENT: ? BI-RADS BI-RADS 2 - Benign Findings ? RECOMMENDATION: ?? Routine annual mammography screening. ? 1 year F/U ? This examination should not preclude the clinical evaluation of a ?? suspicious palpable abnormality. ? This patient's information was entered into a reminder system with a ?? target due date for their next mammogram. ? Electronically signed by: ??Amy Nino DO ??07/01/2024 10:10 AM EST ?? RP ? Dictated By: ?Amy Nino DO ? Signed By: ?<Electronically signed by Amy Nino, DO in OV> ? 07/01/24 1010 ? DD/ 1430 ? TD/TT: 06/22/24 1457 ? Gas Dispenser: ? Procedure Note Donalyter, Image - 07/01/2024 [facility] [address] [place] [address] Mammography Report Signed Patient: Caitlyn Hercules VMR#: [id number] : 1980Acct:[id number] Age/Sex: 44 / FADM Date: 06/22/24 Loc: HO.MAMMO Attending Dr: Chapo Dial NP Ordering Physician: CHAPO DIAL NPResults: 2Benign Jerson ricardo Date of Service: 06/22/24Follow Up: 1 Year From Orig inal Mammogram Procedure(s): MM tomosynthesis screening BI Accession Number(s): [id number] cc: CHAPO DIAL NP EXAMINATION: MM SCREENING DIGITAL BREAST TOMOSYNTHESIS, BILATERAL CLINICAL INFORMATION: Screening. Asymptomatic. COMPARISON: Mammography: Comparison is made with available priors TECHNIQUE: Digital breast mammography with tomosynthesis is performed in both the craniocaudal and mediolateral oblique views along with computer-aided detection (CAD). FINDINGS: The breasts are heterogeneously dense, which may obscure small masses (ACR BI-RADS breast composition Category c). Left marker clip. There are no significant masses, abnormal calcifications, or other abnormalities. MM/MM tomosynthesis screening BI IMPRESSION: No mammographic evidence of malignancy. ASSESSMENT: BI-RADS BI-RADS 2 - Benign Findings RECOMMENDATION: Routine annual mammography screening. 1 year F/U This examination should not preclude the clinical evaluation of a suspicious palpable abnormality. This patient's information was entered into a reminder system with a target due date for their next mammogram. Electronically signed by: Amy Nino DO 07/01/2024 10:10 AM EST Dictated By: Amy Nino DO Signed By: <Electronically signed by Amy Nino DO in OV> 07/01/24 1010 DD/ 1430 TD/TT: 06/22/24 1457 Gas Dispenser: Chapo CORRALES IMG BI PROCEDURES Final Result * POCT Rapid Influenza A CORADO ID NOW (06/19/2024 9:59 AM EST) [facility] Influenza A Negative Negative, Indeterminate [facility] QC Media Lot # [id number] [facility] Lot# Expiration Date [facility] Swab 06/19/2024 9:59 AM EST us Jarocho Austin MD POINT OF CARE TEST ENTER/EDIT OR DERABLES Final Result Performing Organization Address City/State/[facility] Co de Phone Number [facility] [address] [place] [phone] * POCT Rapid Strep A CORADO ID NOW (06/19/2024 9:58 AM EST) [facility] Rapid Strep A Screen Negative Negative, None Detected QC Media Lot # [id number] Lot# Expiration Date Swab 06/19/2024 9:58 AM EST us Jarocho Austin MD POINT OF CARE TEST ENTER/EDIT OR DERABLES Final Result * POCT Rapid Covid-19 BinaxNOW (06/19/2024 9:56 AM EST) [facility] Rapid COVID Ag Negative QC Media Lot # [id number] Lot# Expiration Date Swab 06/19/2024 9:56 AM EST us Jarocho Austin MD POINT OF CARE TEST ENTER/EDIT OR DERABLES Final Result * (ABNORMAL) POCT HGB A1C (06/01/2024 11:57 AM EST) [facility] Hemoglobin A1C 6.6(A) 4.0 - 6.0 % QC Media Lot # [id number] Lot# Expiration Date Blood 06/01/2024 11:5 7 AM EST Chapo CORRALES POINT OF CARE TEST ENTER/EDIT OR DERABLES Final Result * (ABNORMAL) POCT Glucose (06/01/2024 11:49 AM EST) Glucose Blood, POC 159(A) 60 - 200 mg/dL QC Media Lot # [id number] Lot# Expiration Date 532002 Blood Capillary blood specimen / Unknown 06/01/2024 11:49 AM EST Chapo Dial ANP POINT OF CARE TEST ENTER/EDIT OR DERABLES Edited Result - Final * (ABNORMAL) Lipid Panel, Standard (11/25/2023 1:39 PM EDT) Triglycerides 155(H) <150 mg/dL [facility] Comment:Desirable Triglyceri de: less than 150 mg/dLBorderline High Triglyceride 150-199 mg/dLHigh Triglyceride: 200-499 mg/dLVery High Triglyceride: greater than or equal to 5OO mg/dL Cholesterol 205(H) <200 mg/dL [facility] Comment:Desirable Cholestero l: less than 200 mg/dLBorderline High Cholesterol: 200-239 mg/dLHigh Cholesterol: greater than 239 mg/dL LDL Cholesterol Calculated 119(H) <100 mg/dL [facility] Comment:Desirable LDL: less than 100 mg/dLNear Optimal/Above Optimal LDL: 110- 129 mg/dLBorderline High LDL: 130-159 mg/dLHigh LDL: 160-189 mg/dLVery High LDL: greater than or equal to 190 mg/dL HDL Cholesterol 55 >40 mg/dL [facility] Comment:Desirable HDL: great er than 40 mg/dL Note: This HDL assay may give artificially low results in patients with liver disease. 11/25/2023 1:39 PM EDT 11/25/2023 1:39 PM EDT Generic External Data Provider LAB BLOOD ORDERAB LES Final Result Performing Organization Address [facility] de Phone Number [facility] [address] [place] [address] [phone] * (ABNORMAL) Protein Creatinine Ratio, Urine (07/29/2023 12:03 PM EST) Creatinine, Urine 127.16 mg/dL [facility] Protein, Total, Random Urine 160(H) <12 mg/dL [facility] Protein/Creati nine Ratio, Ur 1.26(H) <0.2 [facility] Comment:The spot urine prote in:creatinine ratio may increase to 0.3during normal . 07/29/2023 12:0 3 PM EST 07/29/2023 1:03 PM EST Generic External Data Provider LAB URINE ORDERAB LES Final Result Performing Organization Address [facility] de Phone Number [facility] [address] [place] [phone] * Hm Pap Smear (11/18/2015) Pap Negative for intraephithelial lesion or malignancy Negative for intraephithelial lesion or malignancy, Other HPV Undetected 11/18/2015 Historical Provider HEALTH MAINTENANCE Final Result from Last 3 Months or Most Recently Relevant to Health Maintenance Insurance [facility] Care Teams Collar Sewer Relationship Specialty Start Date End Date Chapo Dial ANP [address] [place] [phone] PCP - General Family Medicine 07/30/20
--- OUTSIDE RECORDS SUMMARY | 2024-08-01 13:49 | XMS_ITS | Encounter Summary ---
Author Organization [employer] Address [address] [facility] [address] [place] [address] Care Team Providers Care Telecommunications Administrator Name Role Phone Niki Allen Primary Care Provider [phone] Reason for Visit * Reason Comments Med Refill Encounter Details Date Type Department Care Team ([facility] st Contact Info) Description 08/16/2023 Refill [facility] [address] [place], [place] [phone] Niki Allen ANP [address] [place], [place] [phone] Mixed hyperlipidemia; Non-seasonal allergic rhinitis due to other allergic trigger Social History Tobacco Use Types Packs/Day Years Used Date Smoking Tobacco: Every Day Cigarettes Smokeless Tobacco: Never Alcohol Use Standard Drinks/Week Comments Not Currently 0 (1 standard drink = 0.6 oz pur e alcohol) PHQ-2 Answer Date Recorded Patient Health Questionnaire-2 Score 0 11/04/2022 Alcohol Answer Date Recorded Frequency of Alcohol Consumption Not on file 08/05/2023 Average Number of Drinks Not on file 024 Frequency of Binge Drinking Not on file 07/21 Score 0 08/05/2023 Housing Stability Answer Date Recorded What is [...] Patient Health Questionnaire-2 Score 0 11/04/2022 Comments No Sex and Gender Information Value [...] Description 08/03/2024 11:15 AM EST Office Visit [facility] [address] [place] [address] Niki Allen ANP [address] [place] [address] documented as of this encounter Visit Diagnoses Diagnosis Mixed hyperlipidemia Non-seasonal allergic rhinitis due to other allergic trigger documented in this encounter Care Teams Telecommunications Administrator Relationship Specialty Start Date End Date Niki Allen ANP [address] [place] [phone] PCP - General Family Medicine 07/30/20 documented as of this encounter
== END 2024-08-01 12:40 | disposition home or self-care (01) ==
PROVIDERS: PCP Nurse Practitioner Primary Care; Visit Provider Internal Medicine Nephrology
DX: N18.31 Chronic kidney disease, stage 3a (principal); N02.8 Recurrent and persistent hematuria with other morphologic changes; I10 Essential (primary) hypertension
CPT/HCPCS: 99214

== ENCOUNTER 2024-08-06 11:11 | Outpatient (REF) | payer OTHER, SELFPAY ==
[2024-08-06 11:52] LABS: Anion Gap 13 (12-20); Blood Urea Nitrogen 17 mg/dL (9-16); Carbon Dioxide 25 mmol/L (22-29); Chloride 106 mmol/L (96-108); Estimated Glomerular Filt Rate 55; Potassium 4.1 mmol/L (3.3-5.1); Sodium 140 mmol/L (135-145)
[2024-08-06 12:21] LABS: Creatinine Urine 156.24 mg/dL
[2024-08-06 12:36] LABS: Protein/Creatinine Ratio, Ur 1.73 (<0.2); Total Protein Urine Random 270 mg/dL (<12)
== END 2024-08-06 11:12 | disposition home or self-care (01) ==
LOC: HO.LAB 11:11
PROVIDERS: PCP Nurse Practitioner Primary Care; Visit Provider Internal Medicine Nephrology
DX: N18.31 Chronic kidney disease, stage 3a (principal); N02.8 Recurrent and persistent hematuria with other morphologic changes
CPT/HCPCS: 36415; 80051; 82565; 82570; 84156; 84520

== ENCOUNTER 2024-08-10 12:04 | Outpatient (REF) | payer OTHER, SELFPAY ==
--- NOTE | ~2024-08-10 | US_ITS ---
CLINICAL HISTORY: Z85.528 - Personal history of other malignant neoplasm of kidney US Renal Comparison: None Findings: The right kidney is normal in size, measuring 12.0 cm in length. The left kidney is mildly enlarged in size, measuring 13.2 cm in length. Cortical echogenicity is within normal limits. 3.3 cm complex cystic left lower renal mass is seen with wall thickening. There is no hydronephrosis. IMPRESSION: 1. 3.3 cm complex cystic left lower renal mass with wall thickening. Recommend CT or MRI renal mass protocol for further evaluation. 2. Normal sonographic appearance of the right kidney. This document has been electronically signed by: Mariana Fowler on 08/14/2024 06:25:02
--- OUTSIDE RECORDS SUMMARY | 2024-08-10 12:53 | XMS_ITS | Encounter Summary ---
Author Organization [employer] Address [address] [facility] [address] 7t [place] [address] Care Team Providers Care Tunnel Mucker Name Role Phone Niki Allen ANTONI Primary Care Provider [phone] Encounter Details Date Type Department Care Team (Latest Contact Info) Description 08/03/2024 Travel Social History Tobacco Use Types Packs/Day [...] with others, in a hotel, in a skilled nursing, living outside on the street, on a [...] as of this encounter Plan of Treatment Not on file documented as of this encounter Visit Diagnoses Not on filedocumented in this encounter Additional Health Concerns Assessment Noted Time PHQ-9 Depression Total Score: 5 03/02/20 24 2:07 PM EDT documented as of this encounter Care Teams Tunnel Mucker Relationship Specialty Start Date End Date Niki Allen ANP [address] [place] [address] PCP - General Family Medicine 07/30/20 documented as of this encounter
--- OUTSIDE RECORDS SUMMARY | 2024-08-10 12:53 | XMS_ITS | Encounter Summary ---
Author Organization [employer] Address 75 [facility] 7t [place] [address] Care Team Providers Care Manager Diabetes Name Role Phone Niki Allen ANTONI Primary Care Provider Encounter Details Date Type Department Care Team (Late st Contact Info) Description 07/12/2022 Orders Only [facility] [address] [place] [address] Soraida Segundo LPN Social History Tobacco Use [...] on file documented as of this encounter Procedures Procedure [...] Blood Negative Negative [facility] Specific [place] - Urine 1.020 1.005 - 1.025 [facility] Urine Protein 300 (3+)(A) Neg-Trace mg/dL [facility] Urine Ketones Negative Negative mg/dL [facility] Nitrite Urine Negative Negative [facility] Leukocyte Esterase Urine Negative Negative [facility] RBC Urine 0-2 0 - 2 /HPF [facility] Urine WBC 0-5 0 - 5 /HPF [facility] Urine Squamous Epithelial Cell 11-20 0 - 2 /HPF [facility] Urine Bacteria 2+ None Seen [facility] Hyaline Casts, Urine 3-5 0 - 2 /LPF [facility] 04/18/2023 7:37 PM EDT 04/18/2023 7:40 PM EDT Narrative [facility] - 04/18/2023 7:50 PM EDT [id number], Clean Catch us [facility] External Provider LAB URI NE ORDERABLES Final Result [facility] [address] [place] [phone] [phone] * Sed Rate by Modified Beverley (04/18/2023 2:12 PM EDT) Erythrocyte Sedimentation Rate 17 0 - 20 MM/HR [facility] Comment:Patients with polycy themia and many hemoglobin abnormalitiesmay have depressed sed rates whereas patients with anemiamay have elevated sed rates. 04/18/2023 2:12 PM EDT 04/18/2023 5:23 PM EDT [facility] External Provider LAB BLO OD ORDERABLES Final Result Performing Organization Address [facility]/ZIP Co de Phone Number [facility] [address] [place] [address] [phone] * TSH (04/18/2023 2:12 PM EDT) Thyroid Stimulating Hormone 0.65 0.32 - 4.0 uIU/mL [facility] Comment:TSH 3rd Generation ( [facility]) 04/18/2023 2:12 PM EDT 04/18/2023 2:16 PM EDT [facility] External Data Provider LAB BLOOD ORDERAB LES Final Result Performing Organization Address [facility]/ZIP Co de Phone Number [facility] [address] [place] [address] [phone] * (ABNORMAL) Basic Metabolic Panel (04/18/2023 2:12 PM EDT) Sodium 141 135 - 145 mmol/L [facility] [...] 1.210.Chronic Kidney Disease: Estimated GFR < 60 mL/min/1.80h0Szkwbd Kidney Disease: Estimated GFR < 15 mL/min/1.73m2 Glucose 144(H) 60 - 115 mg/dL [facility] Calcium 9.3 8.4 - 10.2 mg/dL [facility] 04/18/2023 2:12 PM EDT 04/18/2023 2:16 PM EDT Generic External Data Provider LAB BLOOD ORDERAB LES Final Result Performing Organization Address [facility] Co de Phone Number [facility] [address] [place] [phone] * (ABNORMAL) Hepatic Function Panel (04/18/2023 [...] 2:12 PM EDT 04/18/2023 2:16 PM EDT [facility] External Provider LAB BLO OD ORDERABLES Final Result Performing Organization Address [facility] Co de Phone Number [facility] [address] [place] [phone] * (ABNORMAL) CBC auto differential (04/18/2023 [...] 2:12 PM EDT 04/18/2023 2:16 PM EDT [facility] External Provider LAB BLO OD ORDERABLES Final Result Performing Organization Address [facility] Co de Phone Number [facility] [address] [place] [address] [phone] * (ABNORMAL) Protein Creatinine Ratio, Urine (09/09/2022 10:57 AM EDT) Creatinine, Urine 49.94 mg/dL [facility] Protein, Total, Random Urine 240(H) <12 mg/dL [facility] Protein/Creati nine Ratio, Ur 4.81(H) <0.2 [facility] Comment:The spot urine prote in:creatinine ratio may increase to 0.3during normal . 09/09/2022 10:5 7 AM EDT 09/09/2022 12:07 PM EDT [facility] External Provider LAB URI NE ORDERABLES Final Result Performing Organization Address [facility] de Phone Number [facility] [address] [place] [address] [phone] documented in this encounter Visit Diagnoses Not on filedocumented in this encounter Care Teams Manager Diabetes Relationship Specialty Start Date End Date Niki [place] ANP [address] [place] [phone] PCP - General Family Medicine 07/30/20 documented as of this encounter
--- OUTSIDE RECORDS SUMMARY | 2024-08-10 12:53 | XMS_ITS | Encounter Summary ---
Author Organization [employer] Address [address] [place] [address] 7 [place] [address] Care Team Providers Care Manager Change Name Role Phone Niki [place] ANTONI Primary Care Provider Reason for Visit * Reason Comments presistent sinus concerns Encounter Details Date Type Department Care Team ([facility] st Contact Info) Description 07/18/2024 11:00 AM EST Office Visit [facility] MED[facility]INE [address] [place], [place] [phone] Claudia Avina MD [address] [place] [address] Acute non-recurrent sinusitis, unspecified location (Primary Dx) [...] with others, in a hotel, in a fci, living outside on the street, on a [...] days -continue fluticasone nasal spray -start loratadine -[place] on environmental triggers changes -advise may take [...] days -continue fluticasone nasal spray -start loratadine -[place] on environmental triggers changes -advise may take a few weeks to resolve but let us know if symptoms persist after 2 weeks documented in this encounter Plan of Treatment Not on file documented as of this encounter Visit Diagnoses Diagnosis Acute non-recurrent sinusitis, unspecified location- Primary documented in this encounter Additional Health Concerns Assessment Noted Time PHQ-9 Depression Total Score: 5 03/02/20 24 2:07 PM EDT documented as of this encounter Care Teams Manager Change Relationship Specialty Start Date End Date Niki [place] ANP [address] [place] [phone] PCP - General Family Medicine 07/30/20 documented as of this encounter
--- OUTSIDE RECORDS SUMMARY | 2024-08-10 12:53 | XMS_ITS | Encounter Summary ---
Author Organization [employer] [facility] Address [address] [place] [address] [address] [place] [address] Care Team Providers Care Diesel Engine Mechanic Apprentice Name Role Phone Niki [place] Primary Care Provider [phone] Reason for Referral * Consultation (Routine) - Closed Specialty Diagnoses / Procedures Referred By Rodo pete Referred To Contact Gastroenterology Diagnoses Screening for malignant neoplasm of colon Niki [place] ANP [address] [place] [address] Phone: tel: fax: Referral ID Status Reason Start Date Expiration Date V isits Requested Visits Authorized [id number] Closed Specialty Services Required 08/03/2024 08/03/2025 1 1 Reason for Visit * Reason Comments Follow-up Encounter Details Date Type Department Care Team (Latest Contact Info) Description 08/03/2024 11:15 AM EST Office Visit [facility] [address] [place] [address] [phone] Niki [place] ANP [address] [place], [place] [phone] Non-seasonal allergic rhinitis due to other allergic trigger (Primary Dx); IgA nephropathy; Class 3 severe obesity with serious comorbidity and body mass index (BMI) of 40.0 to 44.9 in adult, unspecified obesity type (CMS/HCC); Type 2 diabetes mellitus with hyperlipidemia (CMS/HCC) ([facility]/HCC); Screening for malignant neoplasm of colon; History of endometrial cancer; Mixed hyperlipidemia; Food allergy; Acute non-recurrent sinusitis, unspecified location; Insomnia, unspecified type Social History Tobacco Use Types Packs/Day Years [...] with others, in a hotel, in a jail, living outside on the street, on a [...] the past 12 months, has t he [employer], gas, oil or water [employer] threatened to shut off services in your [...] Sign Reading Time Taken Comments Blood Pressure 142/82 08/03/2024 11:36 AM EST Pulse 80 08/03/2024 11:03 AM EST Temperature 36.8 ??C (98.3 ??F) 08/03/2024 11:[address] Respiratory Rate 14 08/03/2024 11:03 AM EST Oxygen Saturation 96% 08/03/2024 11:03 AM EST Inhaled Oxygen Concentration - - Weight 119 kg (262 lb 3.2 oz) 08/03/2024 11:03 A M EST Height - - Body Mass Index 43.63 03/02/2024 1:52 PM EDT documented in this encounter Plan of Treatment Scheduled Referrals Name Type Priority Associated Diagnoses Order Schedule Referral to Gastroenterology Outpatient Referral Routine Screening for malignant neoplasm of colon Expected: 08/03/2024 (Approximate), Expires: 08/03/2025 documented as of this encounter Visit Diagnoses Diagnosis Non-seasonal allergic rhinitis due to other allergic trigger- Primary IgA nephropathy Nephritis and nephropathy, not specified as acute or chronic, with unspecified pathological lesion in kidney Class 3 severe obesity with serious comorbidity and body mass index (BMI) of 40.0 to 44.9 in adult, unspecified obesity type (CMS/HCC) Type 2 diabetes mellitus with hyperlipidemia (CMS/HCC) ([facility]) Screening for malignant neoplasm of colon History of endometrial cancer Mixed hyperlipidemia Food allergy Dermatitis due to food taken internally Acute non-recurrent sinusitis, unspecified location Insomnia, unspecified type documented in this encounter Additional Health Concerns Assessment Noted Time PHQ-9 Depression Total Score: 5 03/02/20 24 2:07 PM EDT documented as of this encounter Care Teams Diesel Engine Mechanic Apprentice Relationship Specialty Start Date End Date Niki [place] ANP [address] [place] [phone] PCP - General Family Medicine 07/30/20 documented as of this encounter
--- OUTSIDE RECORDS SUMMARY | 2024-08-10 12:53 | XMS_ITS | Encounter Summary ---
Author Organization [employer] Address [address] [facility] 7t [place] [address] Care Team Providers Care Bone Char Kiln Tender Name Role Phone Niki [place] ANTONI Primary Care Provider [phone] Encounter Details Date Type Department Care Team (Late st Contact Info) Description 08/06/2024 Orders Only GENERIC EXTERNAL DATA DEPARTMENT Provider, Generic External Data Social History Tobacco Use Types Packs/Day Years [...] with others, in a hotel, in a longterm, living outside on the street, on a [...] Procedure Name Priority Date/Time Associated Diagnosis Comments CREATININE, SERUM Routine 08/06/2024 11: 26 AM EST UREA NITROGEN (BUN) Routine 08/06/2024 1 1:26 AM EST ELECTROLYTE PANEL Routine 08/06/2024 11: 26 AM EST PROTEIN CREATININE RATIO, URINE Routine 08/06/2024 11:22 AM EST documented in this encounter Results * Creatinine, Serum (08/06/2024 11:26 AM EST) Creatinine, Serum 1.09 0.5 - 1.4 mg/dL [facility] Estimated Glomerular Filt Rate 55 [facility] Comment:Chronic Kidney Disea se: Estimated GFR < 60 mL/min/1.41r3Iocvek Kidney Disease: Estimated GFR < 15 mL/min/1.73m2 08/06/2024 11:2 6 AM EST 08/06/2024 11:26 AM EST Generic External Data Provider LAB BLOOD ORDERAB LES Final Result Performing Organization Address [facility] Co de Phone Number [facility] [address] [place] [phone] * (ABNORMAL) BUN (Blood Urea Nitrogen) (08/06/2024 11:26 AM EST) Urea Nitrogen (BUN) 17(H) 9 - 16 mg/dL [facility] 08/06/2024 11:2 6 AM EST 08/06/2024 11:26 AM EST Generic External Data Provider LAB BLOOD ORDERAB LES Final Result Performing Organization Address [facility] Phone Number [facility] [address] [place] [phone] * Electrolyte Panel (08/06/2024 11:26 AM EST) Sodium 140 135 - 145 mmol/L [facility] Potassium 4.1 3.3 - 5.1 mmol/L [facility] Chloride 106 96 - 108 mmol/L [facility] Carbon Dioxide 25 22 - 29 mmol/L [facility] Anion Gap 13 12 - 20 [facility] 08/06/2024 11:2 6 AM EST 08/06/2024 11:26 AM EST Generic External Data Provider LAB BLOOD ORDERAB LES Final Result Performing Organization Address [facility] Co de Phone Number [facility] [address] [place] [phone] * (ABNORMAL) Protein Creatinine Ratio, Urine (08/06/2024 11:22 AM EST) Creatinine, Urine 156.24 mg/dL [facility] Protein, Total, Random Urine 270(H) <12 mg/dL [facility] Protein/Creati nine Ratio, Ur 1.73(H) <0.2 [facility] Comment:The spot urine prote in:creatinine ratio may increase to 0.3during normal . 08/06/2024 11:2 2 AM EST 08/06/2024 11:30 AM EST us Generic External Data Provider LAB URINE ORDERAB LES Final Result Performing Organization Address City/State/[facility] Co de Phone Number [facility] [address] [place] [phone] documented in this encounter Visit Diagnoses Not on filedocumented in this encounter Additional Health Concerns Assessment Noted Time PHQ-9 Depression Total Score: 5 03/02/20 24 2:07 PM EDT documented as of this encounter Care Teams Bone Char Kiln Tender Relationship Specialty Start Date End Date Niki [place] ANP [address] [place] [address] PCP - General Family Medicine 07/30/20 documented as of this encounter
--- OUTSIDE RECORDS SUMMARY | 2024-08-10 12:53 | XMS_ITS | Encounter Summary ---
Author Organization [employer] Address 75 [facility] 7t [place] [address] Care Team Providers Care Game Designer Name Role Phone Niki [place] Primary Care Provider [phone] Reason for Visit * Reason Comments Med Refill Encounter Details Date Type Department Care Team ([facility] st Contact Info) Description 07/27/2024 Refill [facility] [address] [place], [place] [phone] Niki [place] ANP [address] [place], [place] [phone] Type 2 diabetes mellitus with hyperlipidemia ([facility]/HCC) ([facility]) Social History Tobacco Use Types Packs/Day Years [...] with others, in a hotel, in a mcc, living outside on the street, on a [...] documented as of this encounter Care Teams Game Designer Relationship Specialty Start Date End Date Niki [place] ANP [address] [place] [address] PCP - General Family Medicine 07/30/20 documented as of this encounter
--- OUTSIDE RECORDS SUMMARY | 2024-08-10 12:53 | XMS_ITS | Encounter Summary ---
Author Organization [employer] Address 75 [facility] 7t [place] [address] Care Team Providers Care Senior Project Controls Specialist Name Role Phone Niki [place] Primary Care Provider [phone] Reason for Visit * Reason Onset Date Comments Nurse Triage 07/17/2024 Encounter Details Date Type Department Care Team ([facility] st Contact Info) Description 07/17/2024 Telephone [facility]ICINE [address] [place], [place] [phone] Niki [place] ANP [address] [place] [address] Nurse Triage Social History Tobacco Use Types [...] acuity questions The caller accepted this outcome. [phone] documented in this encounter Plan of Treatment Not on file documented as of this encounter Visit Diagnoses Not on filedocumented in this encounter Additional Health Concerns Assessment Noted Time PHQ-9 Depression Total Score: 5 03/02/20 24 2:07 PM EDT documented as of this encounter Care Teams Senior Project Controls Specialist Relationship Specialty Start Date End Date Niki [place] ANP [address] [place] [address] PCP - General Family Medicine 07/30/20 documented as of this encounter
--- OUTSIDE RECORDS SUMMARY | 2024-08-10 12:53 | XMS_ITS | Encounter Summary ---
Author Organization [employer] Address [address] [facility] [address] 7t [place] [address] Care Team Providers Care Medical Education Manager Name Role Phone Niki [place] ANTONI Primary Care Provider [phone] Encounter Details Date Type Department Care Team [...] documented as of this encounter Care Teams Medical Education Manager Relationship Specialty Start Date End Date Niki [place] ANP [address] [place] [phone] PCP - General Family Medicine 07/30/20 documented as of this encounter
--- OUTSIDE RECORDS SUMMARY | 2024-08-10 12:53 | XMS_ITS | Encounter Summary ---
Author Organization [employer] Address 75 [facility] 7t [place] [address] Care Team Providers Care Ammonia Distiller Name Role Phone Niki [place] Primary Care Provider [phone] Reason for Visit * Reason Onset Date Comments Call Back Request 04/18/2023 Encounter Details Date Type Department Care Team ([facility] Contact Info) Description 04/18/2023 Telephone [facility]INE [address] [place], [place] [phone] Niki [place] ANP [address] [place], [place] [phone] Call Back Request Social History Tobacco Use Types Packs/Day Years Used Date Smoking Tobacco: Every Day Cigarettes Smokeless Tobacco: Never Alcohol Use Standard Drinks/Week Comments Not Currently 0 (1 standard drink = 0.6 oz pur e alcohol) PHQ-2 Answer Date Recorded Patient Health Questionnaire-2 Score 0 11/04/2022 Housing Stability Answer Date Recorded What is your housing situation today? I have bbuba gonzalez 04/07/[address] you [...] notes were fax over same day 04/17/2023, Information And Data Architect Analyst transferred over to HIM to verify if notes were received. Please contact Yamila at [phone] documented in this encounter Plan of Treatment Not on file documented as of this encounter Visit Diagnoses Not on filedocumented in this encounter Care Teams Ammonia Distiller Relationship Specialty Start Date End Date Niki [place] ANP [address] [place] [phone] PCP - General Family Medicine 07/30/20 documented as of this encounter
--- OUTSIDE RECORDS SUMMARY | 2024-08-10 12:53 | XMS_ITS | Clinical Summary ---
Author Organization [facility] Address [address] [place] [address] Phone Care Team Providers Care Radio Intelligence Operator Name Role Phone Niki [place] SUPERVISOR FABRICATION AND ASSEMBLY Primary Care Provider Unavailabl e Allergies Active [...] Vaccine (#1) 2024 Insurance [place] Care Teams Radio Intelligence Operator Relationship Specialty Start Date End Date Niki [place] NP PCP - General Nurse Practitioner 01/13/22
--- OUTSIDE RECORDS SUMMARY | 2024-08-10 12:53 | XMS_ITS | Clinical Summary ---
Author Organization [facility] Address [address] [place] [address] Phone Care Team Providers Care Garnett Fixer Name Role Phone Niki [place] NP Primary Care Provider [phone] Allergies Active Allergy Reactions Criticality Noted Date [...] Pulmonary hypertension 12/08/2022 Overview (07/19/2024): [facility] [place] BP meds: Verapamil 180mg ER 2 [...] AM EDT Office Visit Bariatric Surgery - [place] [address] [facility] [address] [place] [address] Liv Cartagena PA [address] [facility] [address] [place] [address] Health Maintenance Due Date Last Done Comments [...] patient's age to complete this topic Meningococcal B Vacine Aged Out No lo nger eligible based on patient's age to complete this topic RSV Immunization Patients Under 20 months Aged Out No longer eligible based on patient's age to complete this topic Varicella Vaccines Aged Out No longer eligible based on patient's age to complete this topic Insurance MEDICAID - [place] [employer] Care Teams Garnett Fixer Relationship Specialty Start Date End Date Niki [place] NP [address] [place] [address] [place] [phone] PCP - General 07/19/24
--- OUTSIDE RECORDS SUMMARY | 2024-08-10 12:54 | XMS_ITS | Encounter Summary ---
Author Organization [employer] Address 75 [facility] 7t [place] [address] Care Team Providers Care Regional Sales Manager Name Role Phone Niki [place] Primary Care Provider [phone] Reason for Visit * Reason Comments Med Refill Encounter Details Date Type Department Care Team ([facility] st Contact Info) Description 08/16/2023 Refill [facility] MED[facility]INE [address] [place], [place] [phone] Niki [place] ANP [address] [place], [place] [phone] Mixed hyperlipidemia; Non-seasonal allergic rhinitis due to [...] trigger documented in this encounter Care Teams Regional Sales Manager Relationship Specialty Start Date End Date Niki [place] ANP [address] [place] [phone] PCP - General Family Medicine 07/30/20 documented as of this encounter
--- OUTSIDE RECORDS SUMMARY | 2024-08-10 12:54 | XMS_ITS | Clinical Summary ---
Author Organization [employer] Address [address] [facility] [address] [facility] [address] [place] [address] Care Team Providers Care Rental Coordinator Name Role Phone Chapo Dial ANTONI Primary Care Provider [phone] Allergies Active Allergy Reactions Criticality Noted Date [...] TO 28 DAYS 30 g 1 Active insulin glargine (Lantus SoloStar) 100 UNIT/ML penIndications:Ne wly diagnosed diabetes ([facility]) Inject 10 Units under the skin at bedtime. 3 mL 2 024 2024 Active pen needle 32G x 4 mm misc Use to inject Lantus once per day 100 each 12 Active pantoprazole (ProtoNix) 40 MG EC tabletIndications :Heartburn TAKE 1 TABLET BY MOUTH EVERY DAY IN THE MORNING 90 tablet 1 Active verapamil SR (Calan SR) 180 MG ER tabletIndications :Essential hypertension TAKE 2 TABLETS BY MOUTH EVERY DAY WITH FOOD 180 tablet 1 Active lisinopril 10 MG tabletIndications :Benign essential hypertension Take 2 tablets (20 mg) by mouth Once per day. 60 tablet Active albuterol (Ventolin HFA) 108 (90 Base) MCG/ACT inhalerIndication s:Mild persistent asthma with acute exacerbation Inhale 2 puffs Every 4-6 hours as needed for wheezing or shortness of breath. 18 g 3 024 Active Spacer/Aero-Holdi ng Chambers (OptiChamber Trish) misc 1 each every 4 (four) hours if needed (asthma). 1 each 024 Active fluticasone (Flonase Allergy Relief) 50 MCG/ACT nasal sprayIndications: Acute non-recurrent sinusitis, unspecified location Administer 1 spray into each nostril Once per day. Shake gently. Before first use, prime pump. After use, clean tip and replace cap. 16 g 2 025 2025 Active metFORMIN (Glucophage) 500 MG tabletIndications :Type 2 diabetes mellitus with hyperlipidemia (CMS/HCC) ([facility]) TAKE 1 TABLET BY MOUTH TWICE A DAY 180 tablet Active empagliflozin (Jardiance) 10 MGIndications:Typ e 2 diabetes mellitus with hyperlipidemia (CMS/HCC) ([facility]) Take 1 tablet (10 mg) by mouth Once per day. 30 tablet Active FREESTYLE LITE test stripIndications: Type 2 diabetes mellitus with hyperlipidemia (CMS/HCC) ([facility]) Use to test blood sugar 3 times daily 100 each 025 2025 Active Lancets miscIndications:T ype 2 diabetes mellitus with hyperlipidemia (CMS/HCC) ([facility]) Use to test blood sugar 3 times daily 100 each Active Alcohol Swabs 70 % padsIndications:T ype 2 diabetes mellitus with hyperlipidemia (CMS/HCC) ([facility]) Use to test blood sugar 3 times daily 100 each 025 Active Blood Glucose Monitoring Suppl (FreeStyle [place] Lite) w/Device kitIndications:Ty pe 2 diabetes mellitus with hyperlipidemia (CMS/HCC) ([facility]) Use to test blood sugar 3 times daily 1 kit Active EPINEPHrine (Epipen) 0.3 MG/0.3ML injection syringeIndication s:Food allergy Inject 0.3 mL (0.3 mg) as directed 1 (one) time if needed for anaphylaxis. Inject into upper leg. Call 911 after use. 2 each 1 Active loratadine (Claritin) 10 MG tabletIndications :Non-seasonal allergic rhinitis due to other allergic trigger,Acute non-recurrent sinusitis, unspecified location Take 1 tablet (10 mg) by mouth Once per day. As needed 90 tablet Active traZODone (Desyrel) 100 MG tabletIndications :Insomnia, unspecified type TAKE 1 TO 2 TABLETS BY MOUTH AT BEDTIME NEEDED FOR SLEEP 180 tablet 1 Active rosuvastatin (Crestor) 5 MG tabletIndications :Mixed hyperlipidemia Take 1 tablet (5 mg) by mouth at bedtime. 90 tablet 1 025 2025 Active atorvastatin (Lipitor) 20 MG tabletIndications :Mixed hyperlipidemia TAKE 1 TABLET BY MOUTH EVERY DAY IN THE MORNING 90 tablet 1 024 2024 Discontinued(T herapy completed) loratadine (Claritin) 10 MG tabletIndications :Non-seasonal allergic rhinitis due to other allergic trigger TAKE 1 TABLET BY MOUTH EVERY DAY ONE DOSE 90 tablet 1 024 2024 Discontinued metFORMIN (Glucophage) 500 MG tabletIndications :Type 2 diabetes mellitus with hyperlipidemia (CMS/HCC) (CMS/HCC) Take 1 tablet (500 mg) by mouth 2 times daily. 180 tablet 1 024 2024 Discontinued traZODone (Desyrel) 100 MG tabletIndications :Insomnia, unspecified type TAKE 1 TO 2 TABLETS BY MOUTH AT BEDTIME NEEDED FOR SLEEP 180 tablet 024 2024 Discontinued(R eorder (will not trigger notification to Pharmacy)) fluticasone (Flonase Allergy Relief) 50 MCG/ACT nasal [...] for 10 days. 20 tablet 025 2024 loratadine (Claritin) 10 MG tabletIndications :Acute non-recurrent sinusitis, unspecified location Take 1 tablet (10 mg) by mouth Once per day. 30 tablet 025 2024 Discontinued rosuvastatin (Crestor) 5 MG tabletIndications :Mixed hyperlipidemia Take 1 tablet (5 mg) by mouth at bedtime. 90 tablet 1 025 2024 Discontinued rosuvastatin (Crestor) 5 MG tabletIndications :Mixed hyperlipidemia Take 1 tablet (5 mg) by mouth at bedtime. 90 tablet 1 025 2024 Discontinued Hospital, Clinic, or Other Facility Administered Medication Ordered Dose Route Frequency Start Date End Date Status Insulin Lispro solution 10 UnitsIndications:Newly diagnosed diabetes ([facility]) 10 Units IJ Once Daily 02/01/2024 Active Active Problems Problem Noted Date Diagnosed Date History of endometrial cancer 08/03/2024 Overview (08/03/2024): s/p total hysterectomy 2012 Acute non-recurrent sinusitis 07/18/2024 Assessment & Plan (07/18/2024 11:20 AM EST): -discontinue OTC nasal spray -Augmentin x 10 days -continue fluticasone nasal spray -start loratadine -[place] on environmental triggers changes -advise may take [...] Plan: BG monitor to be purchased at [facility] (better cost d/t lack of current [...] Encounters Date Type Department Care Team Description 08/06/2024 Orders Only GENERIC EXTERNAL DATA DEPARTMENT Provider, Generic External Data 08/03/2024 11:15 AM EST Office Visit [address] [address] Chapo Dial, ANTONI Non-seasonal allergic rhinitis due to other allergic trigger (Primary Dx); IgA nephropathy; Class 3 severe obesity with serious comorbidity and body mass index (BMI) of 40.0 to 44.9 in adult, unspecified obesity type (CMS/HCC); Type 2 diabetes mellitus with hyperlipidemia (CMS/HCC) (CMS/HCC); Screening for malignant neoplasm of colon; History of endometrial cancer; Mixed hyperlipidemia; Food allergy; Acute non-recurrent sinusitis, unspecified location; Insomnia, unspecified type 08/03/2024 Travel 07/27/[address] [facility] [address] [place] [phone] Chapo Dial ANP Type 2 diabetes mellitus with hyperlipidemia (CMS/HCC) (CMS/HCC) 07/18/2024 11:00 AM EST Office Visit [facility] [address] [place] [phone] Claudia Avina MD Acute non-recurrent sinusitis, unspecified location (Primary Dx) 07/18/2024 Travel 07/17/[address] [facility] [address] [place] [phone] Chapo Dial ANP Nurse Triage 06/22/[address] [facility] [address] [place] [phone] Chapo Dial ANP 06/19/2024 9:40 AM EST Office Visit [facility] [address] [place] [phone] Jarocho Austin MD Mild persistent asthma with acute exacerbation (Primary Dx); Benign essential hypertension; Congestion of nasal sinus 06/19/[address] [facility] [address] [place] [phone] Chapo Dial ANP Nurse Triage 06/01/2024 11:00 AM EST Office Visit [facility] [address] [place] [phone] Chapo Dial ANP Type 2 diabetes mellitus with hyperlipidemia (CMS/HCC) ([facility]/H[facility]) (Primary Dx); Encounter for immunization; Pulmonary hypertension (CMS/HCC); Mixed hyperlipidemia; Benign essential hypertension 06/01/2024 Travel 05/25/2024 Travel 05/25/[address] [facility] [address] [place] [phone] Chapo Dial ANP Insomnia, unspecified type 05/19/[address] [facility] [address] [place] [address] Chapo Dial ANP Heartburn; Essential hypertension from Last 3 Months Immunizations Name Administration Dates Next Due Hep B, Adolescent or Pediatric 01/08/1998,1997,04/17/1997 Influenza injectable quadriv alent IIV4 with preservative 03/09/2017,04/29/2016 Influenza injectable quadriv alent preservative free 05/28/2019,05/22/2018 Influenza, IIV3, injectable 03/26/2014 Influenza, Split (incl. jr fied surface antigen) 03/30/2013,03/09/2012 Influenza, seasonal, injecta ble, preservative free 06/01/2024 Moderna Covid-19 Vaccine 6+ Bivalent 11/04/2022 Pneumococcal Conjugate PCV 20 08/03/2024 Pneumococcal Polysaccharide PPSV23 11/01/2018, Pneumococcal, Unspecified 12/31/2010 [...] with others, in a hotel, in a residential, living outside on the street, on a [...] oz) 08/03/2024 11:03 A M EST Height 165.1 cm (5' 5 ) 03/02/2024 1:52 PM EDT Body Mass Index 43.63 03/02/2024 1:52 PM EDT Plan of Treatment Health Maintenance Due Date Last Done Comments HIV Screening 1980 Diabetes: Foot Exam 1990 Eye Exam 1990 Alcohol/Substance Use Screening 1992 Family Planning (PISQ) 1995 Hepatitis C Screening 1998 Hepatitis A Vaccines (1 of 2 - Risk 2-dose series) 1999 COVID-19 Vaccine ( season) 2024 11/04/2022, 11/28/2020, 10/31/2020 Lipid Panel 11/24/2024 11/25/2023, 11/09/2022 Diabetes: Hemoglobin A1C 11/30/2024 024, 02/13/2024, 02/01/2024, Additional history exists Depression Screening 03/02/2025 03/02/2024, 03/02/20 24 SDOH Screening 03/02/2025 03/02/2024 Mammogram 06/22/2025 06/22/2024, 08/2024, 06/22/2024, Additional history exists Tobacco Screening 08/03/2025 08/03/2024 Diabetes: Urine Protein Screening 08/06/2025 08/06/2024, 07/29/2023, 09/09/2022 Zoster Vaccines (1 of 2) 2030 DTaP/Tdap/Td Vaccines (3 - Td or Tdap) 02/24/2031 02/24/2021, 12/31/2010, 04/02/2002 RSV Patients and Patients Aged 60 years or older (1 - 1-dose 75+ series) 2055 Hepatitis B Vaccines Completed 01/08/1998, 08/14/1997, 04/17/1997 Cervical Cancer Screening Discontinued HPV/Cotest Discontinued 11/18/2015 Pap Smear Discontinued 11/18/2015 Influenza Vaccine Completed 06/01/2024, , 05/22/2018, Additional history exists Pneumococcal Vaccine: Pediatrics (0 to 5 Years) and At-Risk Patients (6 to 49) Years) Completed 08/03/2024, 11/01/2018, 12/31/2010, Additional history exists HIB Vaccines Aged Out No longer eligi ble based on patient's age to complete this topic HPV Vaccines Aged Out No longer eligi ble based on patient's age to complete this topic IPV Vaccines Aged Out No longer eligi ble based on patient's age to complete this topic Meningococcal Vaccine Aged Out No genoveva nael eligible based on patient's age to complete [...] RATIO, URINE Routine 08/06/2024 11:22 AM EST BI MAMMOGRAM SCREENING TOMOSYNTHESIS BILATERAL Routine 06/22/2024 [...] PANEL, STANDARD Routine 11/25/2023 1:39 PM EDT HM PAP/HPV Routine 11/18/2015 from Last 3 Months or Most Recently Relevant to Health Maintenance Results * Creatinine, Serum (08/06/2024 11:26 AM EST) Creatinine, Serum 1.09 0.5 - 1.4 mg/dL [facility] Estimated Glomerular Filt Rate 55 [facility] Comment:Chronic Kidney Disea se: Estimated GFR < 60 mL/min/1.06i3Jjuopt Kidney Disease: Estimated GFR < 15 mL/min/1.73m2 08/06/2024 11:2 6 AM EST 08/06/2024 11:26 AM EST Generic External Data Provider LAB BLOOD ORDERAB LES Final Result Performing Organization Address City/[facility]/ZIP Co de Phone Number [facility] [address] [place] [phone] * (ABNORMAL) BUN (Blood Urea Nitrogen) (08/06/2024 11:26 AM EST) Urea Nitrogen (BUN) 17(H) 9 - 16 mg/dL [facility] 08/06/2024 11:2 6 AM EST 08/06/2024 11:26 AM EST Generic External Data Provider LAB BLOOD ORDERAB LES Final Result Performing Organization Address City/[facility]/ZIP Co de Phone Number [facility] [address] [place] [phone] * Electrolyte Panel (08/06/2024 11:26 AM EST) Sodium 140 135 - 145 mmol/L [facility] Potassium 4.1 3.3 - 5.1 mmol/L [facility] Chloride 106 96 - 108 mmol/L [facility] Carbon Dioxide 25 22 - 29 mmol/L [facility] Anion Gap 13 12 - 20 [facility] 08/06/2024 11:2 6 AM EST 08/06/2024 11:26 AM EST Generic External Data Provider LAB BLOOD ORDERAB LES Final Result Performing Organization Address [facility] Phone Number [facility] [address] [place] [address] [phone] * (ABNORMAL) Protein Creatinine Ratio, Urine (08/06/2024 11:22 AM EST) Creatinine, Urine 156.24 mg/dL [facility] Protein, Total, Random Urine 270(H) <12 mg/dL [facility] Protein/Creati nine Ratio, Ur 1.73(H) <0.2 [facility] Comment:The spot urine prote in:creatinine ratio may increase to 0.3during normal . 08/06/2024 11:2 2 AM EST 08/06/2024 11:30 AM EST Generic External Data Provider LAB URINE ORDERAB LES Final Result Performing Organization Address [facility] Phone Number [facility] [address] [place] [phone] * BI Mammogram Screening Tomosynthesis Bilateral (06/22/2024 2:30 PM EST) Anatomical Region Laterality Modality Breast Bilateral Mammography 06/22/2024 2:30 PM EST Narrative 07/01/2024 10:13 AM EST ? [facility] [place] ? [address] ?[place] [address] ? Mammography Report ? Signed ? Patient: Diomedes,Caitlyn V ?MR#: ?? [id number] ? : 1980 ?Acct:[id number] ? Age/Sex: 44 / F ?ADM Date: /03/25 ? Loc: HO.MAMMO ? Attending Dr: Chapo Dial IP LITIGATION PARALEGAL ? Ordering Physician: CHAPO DIAL IP LITIGATION PARALEGAL ?Results: 2Benign Fin ?? dings ? Date of Service: 06/22/24 ?Follow Up: 1 Year From Orig ?? inal Mammogram ? Procedure(s): MM tomosynthesis screening BI ?? Accession Number(s): [id number] ? cc: CHAPO DIAL NP ? EXAMINATION: [...] DD/ 1430 ? TD/TT: 06/22/24 1457 ? Forestry Laborer: ? Procedure Note Donotuseinterpreter, Image - 07/01/2024 [place] [facility] [address] [place] [address] Mammography Report Signed Patient: Caitlyn Hercules VMR#: [id number] : 1980Acct:[id number] Age/Sex: 44 / FADM Date: 06/22/24 Loc: ANDREIAO Attending Dr: Chapo Dial NP Ordering Physician: CHAPO DIAL NPResults: 2Benign [place] ricardo Date of Service: 06/22/24Follow Up: 1 Year From Orig inal Mammogram Procedure(s): MM tomosynthesis screening BI Accession Number(s): [id number] cc: CHAPO DIAL NP EXAMINATION: MM SCREENING [...] Amy Nino DO 07/01/2024 10:10 AM EST [place] Dictated By: Amy Nino DO Signed By: <Electronically signed by Amy Nino DO in [place]> 07/01/24 1010 DD/ 1430 TD/TT: 06/22/24 1457 Forestry Laborer: Chapo CORRALES IMG BI PROCEDURES Final Result * POCT Rapid Influenza A CORADO ID NOW (06/19/2024 9:59 AM EST) Pathologist [facility] Influenza A Negative Negative, Indeterminate [facility] QC Media Lot # [id number] [facility] Lot# Expiration Date , [facility] Swab 06/19/2024 9:59 AM EST Jarocho Austin MD POINT OF CARE TEST ENTER/EDIT OR DERABLES Final Result Performing Organization Address [facility] de Phone Number [facility] [address] [place] [phone] * POCT Rapid Strep A CORADO ID NOW (06/19/2024 9:58 AM EST) [facility] Rapid Strep A Screen Negative Negative, None Detected QC Media Lot # [id number] Lot# Expiration Date ,026 Swab 06/19/2024 9:58 AM EST Jarocho Austin MD POINT OF CARE TEST ENTER/EDIT OR DERABLES Final Result * POCT Rapid Covid-19 BinaxNOW (06/19/2024 9:56 AM EST) [facility] Rapid COVID Ag Negative QC Media Lot # [id number] Lot# Expiration Date ,026 Swab 06/19/2024 9:56 AM EST us Jarocho Austin MD POINT OF CARE TEST ENTER/EDIT OR DERABLES Final Result * (ABNORMAL) POCT HGB A1C (06/01/2024 11:57 AM EST) Hemoglobin A1C 6.6(A) 4.0 - 6.0 % QC Media Lot # [id number] Lot# Expiration Date Blood 06/01/2024 11:5 7 AM EST Chapo Dial ANP POINT OF CARE TEST ENTER/EDIT OR DERABLES Final Result * (ABNORMAL) POCT Glucose (06/01/2024 11:49 AM EST) Glucose Blood, POC 159(A) 60 - 200 mg/dL QC Media Lot # [id number] Lot# Expiration Date Blood Capillary blood specimen / Unknown 06/01/2024 11:49 AM EST us Chapo Dial [facility] POINT OF CARE TEST ENTER/EDIT OR DERABLES Edited Result - Final * (ABNORMAL) Lipid Panel, Standard (11/25/2023 1:39 PM EDT) Triglycerides 155(H) <150 mg/dL [facility] Comment:Desirable Triglyceri de: less than 150 mg/dLBorderline High Triglyceride 150-199 mg/dLHigh Triglyceride: 200-499 mg/dLVery High Triglyceride: greater than or equal to 5OO mg/dL Cholesterol 205(H) <200 mg/dL [facility] Comment:Desirable Cholestero l: less than 200 mg/dLBorderline High Cholesterol: 200-239 mg/dLHigh Cholesterol: greater than 239 mg/dL LDL Cholesterol Calculated 119(H) <100 mg/dL [facility] Comment:Desirable LDL: less than 100 mg/dLNear Optimal/Above Optimal LDL: 110- 129 mg/dLBorderline High LDL: 130-159 mg/dLHigh LDL: 160-189 mg/dLVery High LDL: greater than or equal to 190 mg/dL HDL Cholesterol 55 >40 mg/dL [facility] Comment:Desirable HDL: great er than 40 mg/dL Note: This HDL assay may give artificially low results in patients with liver disease. 11/25/2023 1:39 PM EDT 11/25/2023 1:39 PM EDT us Generic External Data Provider LAB BLOOD ORDERAB LES Final Result [facility] [address] [place] [phone] [phone] * Pap Smear (11/18/2015) Pap Negative for intraephithelial lesion or malignancy Negative for intraephithelial lesion or malignancy, Other HPV Undetected 11/18/2015 Historical Provider HEALTH MAINTENANCE Final Result from Last 3 Months or Most Recently Relevant to Health Maintenance Insurance [employer] Care Teams Rental Coordinator Relationship Specialty Start Date End Date Chapo Dial ANP [address] [facility] [place] [address] PCP - General Family Medicine 07/30/20
== END 2024-08-10 12:05 | disposition home or self-care (01) ==
LOC: HO.US 12:04
PROVIDERS: PCP Nurse Practitioner Primary Care; Visit Provider Urology
DX: Z85.528 Personal history of other malignant neoplasm of kidney (principal)
CPT/HCPCS: 76775

== ENCOUNTER → 2024-08-10 12:05 | Outpatient (BNV) | payer OTHER, SELFPAY | PROVIDERS: PCP Nurse Practitioner Primary Care; Visit Provider Radiology Vascular & Interventional Radiology | DX: N28.1 Cyst of kidney, acquired (principal) | CPT/HCPCS: 76775 ==

== ENCOUNTER 2024-08-20 14:24 | Outpatient (AMB) | payer MEDICAID, SELFPAY ==
[2024-08-20 15:11] VITALS: BP 160/80; PULSE 76; BMI 43.1
--- NOTE | 2024-08-20 15:11 | A.OFFVIS_ITS ---
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 Allergies pork derived (porcine) [Pork derived (porcine)] Allergy (Intermediate, Verified 08/20/24 15:12) HIVES/STOMACH PAIN/THROAT CLOSES ibuprofen [From Motrin] Allergy (Mild, Verified 08/20/24 15:12) GI UPSET aspirin Allergy (Unknown, Verified 08/20/24 15:12) Unknown red dye Allergy (Verified 08/20/24 15:12) Unknown Motrin Allergy (Unknown, Uncoded 08/20/24 15:12) Unknown pork Allergy (Unknown, Uncoded 08/20/24 15:12) Unknown Medication List - Last Reconciled 08/20/24 by OLGA Taylor albuterol sulfate 90 mcg/actuation (ProAir HFA) 2 puffs inhalation QID PRN empagliflozin (Jardiance) 10 mg PO DAILY fluticasone propion-salmeterol 250-50 mcg/dose (Advair Diskus) 1 inh inhalation BID hydralazine 50 mg PO BID hydroxyzine HCl 50 mg PO BID lisinopril 20 mg (2 x 10 mg) PO DAILY loratadine (Claritin) 10 mg PO DAILY melatonin 5 mg PO BEDTIME PRN metformin 500 mg PO BID nicotine (polacrilex) 2 mg PO NEEDED nitroglycerin 0.4 mg sublingual Q5M PRN MDD 3 omega 6-tzd-wbn-fish oil 1,000 (120-180) mg (Fish Oil) 2 caps PO DAILY 90 days pantoprazole 40 mg PO DAILY rosuvastatin 5 mg PO DAILY sertraline 100 mg PO DAILY spironolactone 12.5 mg (1/2 x 25 mg) PO DAILY 90 days trazodone 100 - 200 mg PO BEDTIME verapamil ER 180 mg PO BID HPI HPI 6mth f/up: Details: Caitlyn is a 44-year-old female with past medical history of hypertension, smoking, nocturnal hypoxia with home O2 use during sleep, morbid obesity who is being evaluated for chest discomfort and now presents for follow-up. Today she reports that she still has been getting random pain in her left chest. She describes the episodes as sharp and will persist until she takes nitroglycerin sublingual. It is usually relieved with 1 nitroglycerin. On 1 occasion she had to take 2 before it resolved. She says since her last visit in November she is taking it approximately 3 times. Her symptoms are not brought on by exertional activities. She feels her discomfort is getting worse with time however not more frequent. She has some shortness of breath with activity which is not new. She has a history of asthma which has been controlled. No presyncope, syncope, falls. No PND, orthopnea or edema. 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 She says that she had a lapse in her health insurance and was not able to get the CTA that was previously ordered. She is taking her meds as directed. She admits to being mostly sedentary. [facility] Medical History IgA nephropathy Cancer of left kidney Migraine headache Asthma Hypertension Myocardial infarction IgA nephropathy Surgical History Morbid obesity H/O partial nephrectomy H/O right knee surgery H/O: hysterectomy Family History Mother IgA nephropathy Breast cancer Cancer of kidney CVA (cerebral vascular accident) Maternal Uncle Tongue cancer Social History Household Members: Family Housing: House Do you presently have visiting nurse or other home services: No Alcohol intake: never Comment: sleeping Cigarette Packs Per Day: 1 Cigarettes Per Day: 20.0 service: No Current occupational status: employed Review of Systems Const All systems reviewed & are unremarkable except as noted in HPI and below ENT Denies dizziness Card Reports chest pain, Reports chest pain at rest, Denies chest pain with activity, Denies rapid heart rate, Denies pedal edema, Denies edema, Denies leg edema, Denies lightheadedness, Denies palpitations, Denies dyspnea, Denies dyspnea on exertion and Denies orthopnea Resp Denies cough, Denies dyspnea and Denies dyspnea on exertion GI Denies hematochezia and Denies change in stool character Musc Denies abnormal gait, Denies limited range of motion, Denies muscle cramps, Denies muscle weakness, Denies numbness, Denies radiating pain into limb, Denies stiffness and Denies tingling Neuro Denies abnormal gait, Denies dizziness, Denies numbness and Denies tingling Endo Denies palpitations Physical Exam Vital Signs: Last Vital Signs Pulse 76 08/20/24 15:11 BP 160/80 H 08/20/24 15:11 BMI result Body Mass Index 43.1 Const General: cooperative, healthy appearing, comfortable and no acute distress Orientation/consciousness: patient oriented x3 Neck Neck: Yes normal visual inspection Resp Effort & Inspection: normal respiratory effort Auscultation: clear to auscultation bilaterally, no crackles, no rales, no rhonchi and no wheezes Cardio Jugular venous distension: no JVD Rate: regular rate Rhythm: regular rhythm Heart sounds: S1 normal heart sound present, S2 normal heart sound present, no murmurs and no rubs Neuro General: patient oriented x3 Extrem General: Yes normal to inspection Psych Appearance: grossly normal Mental Status: mental status grossly normal Speech and movement: Normal speech and movement present Office Procedures EKG Details: Today, read by me, normal sinus rhythm, nonspecific T-wave abnormality, rate 76, QTC 459 millisecond [id number], Complete Assessment & Plan Assessment & Plan (1) Chest discomfort: Code(s): R07.89 - Other chest pain Category: Medical Plan: Reports of random sharp left-sided chest discomfort which has been getting more intense however not more frequent. Symptoms not brought on by exertion, relieved with nitroglycerin. Cardiac risk factors of hypertension, smoking, morbid obesity, sedentary. Since last visit she was diagnosed with diabetes. Last echo done 02/23/2023 shows EF 60-65%, moderate left ventricular hypertrophy and grade 2 diastolic dysfunction, mild AR, [id number] elevated RV systolic pressure. Nuclear stress test done on 06/17/2023 showing normal myocardial perfusion imaging. A CTA of the coronary arteries was ordered last visit however she was not able to complete due to a lapse in her insurance. Her health insurance is now active. EKG today shows sinus rhythm with nonspecific T-wave abnormality, rate 76. Will order a CTA of the coronary arteries again. Overall seems atypical for angina however since her pain is relieved with nitroglycerin then it could be CAD or small-vessel disease. Discuss this with her. Instructed to seek emergency medical care in the event of symptoms not relieved by 3 nitro. Signs and symptoms of angina reviewed with her. Continue hydralazine, lisinopril, verapamil, Aldactone for good blood pressure control. Continue rosuvastatin for cholesterol control. Cardiology follow-up 3 months, s ooner if needed (2) Right ventricular dysfunction: Code(s): I51.9 - Heart disease, unspecified Category: Medical Plan: History of morbid obesity and nocturnal hypoxemia leading to increased filling pressures in her heart. Also has history of moderate persistent asthma and smoking. Follows with pulmonology Dr. Thomas. Uses O2 1 L during sleep. Echocardiogram done 02/23/2023 shows EF 60-65%, moderate LVH, grade 2 diastolic dysfunction, moderate dilated left atrium, mild aortic regurgitation, RVSP 45 mmHg. Echo from 2020 showed RVSP 55 mmHg. She has no signs of heart failure on examination. She tells me that she no longer smokes but is vaping. Continue to follow with pulmonology. Benefit of weight loss reviewed. Increase physical activity as tolerated. Blood pressure elevated today at 160/80. Will have her increase Aldactone from 12.5 mg daily up to 25 mg daily. Periodic home blood pressure checks. Instructed to call if systolic running greater than 140. (3) Diastolic dysfunction: Code(s): I51.89 - Other ill-defined heart diseases Category: Medical Plan: Grade 2 diastolic dysfunction on recent echo (4) LVH (left ventricular hypertrophy): Code(s): I51.7 - Cardiomegaly Category: Medical Plan: Moderate LVH on last echo. This is up from mild LVH on echo in 2020. Will continue to work on good blood pressure control (5) Morbid obesity: Code(s): E66.01 - Morbid (severe) obesity due to excess calories Category: Surgical Plan: Benefit of weight loss reviewed. She is working on diet control. May benefit from bariatric program referral. (6) Hypertension: Code(s): I10 - Essential (primary) hypertension Category: Medical Qualifiers: Hypertension type: primary hypertension Qualified Code(s): I10 - Essential (primary) hypertension Plan: As above. Increasing Aldactone. Plan Time spent on chart review, documentation, interview, assessment Medications: Changed From spironolactone 12.5 mg (1/2 x 25 mg) PO DAILY 90 days 45 tabs 4RF To spironolactone dose increased 25 mg PO DAILY 90 days 90 tabs 1RF Coding Level of Care Code Est Pt Level 4 (93631) Complex EM visit Add On G2211 Diagnoses Chest discomfort R07.89 Right ventricular dysfunction I51.9 Diastolic dysfunction I51.89 LVH (left ventricular hypertrophy) I51.7 Morbid obesity E66.01 Primary hypertension I10 Hypertension type: primary hypertension CPT Codes EKG - CPT: 43071-[id number], Complete ([id number]) Time Spent (min) 28
--- OUTSIDE RECORDS SUMMARY | 2024-08-20 17:10 | XMS_ITS | Clinical Summary ---
Author Organization [address] [facility] Address [address] [place] [address] Phone Care Team Providers Care [employer] Consultant Name Role Phone Niki Allen NP Primary Care Provider [phone] Allergies Active Allergy Reactions Criticality Noted Date [...] (10 mg total) by mouth daily. 4 Active pantoprazole (PROTONIX) 40 mg EC tablet [...] Pulmonary hypertension 12/08/2022 Overview (07/19/2024): Follows w/ [facility] BP meds: Verapamil 180mg ER 2 [...] Upcoming Encounters Date Type Department Care Team ([facility] st Contact Info) Description 03/19/2025 10:30 AM EDT Office Visit Bariatric Surgery - [place] [address] [facility] [address] [place] [id number] Liv Cartagena PA [address] [facility] [address] [place] [address] Health Maintenance Due Date Last Done Comments [...] - [place] [facility] Care Teams [employer] Consultant Relationship Specialty Start Date End Date Niki Allen NP [address] [place] [phone] PCP - General 07/19/24
--- OUTSIDE RECORDS SUMMARY | 2024-08-20 17:10 | XMS_ITS | Clinical Summary ---
Author Organization [employer] Address [address] [facility] 7t [place] [address] Care Team Providers Care Cell Coverer Name Role Phone Chapo Dial ANTONI Primary Care Provider [phone] Allergies Active Allergy Reactions Criticality Noted Date [...] SoloStar) 100 UNIT/ML penIndications:Ne wly diagnosed diabetes ([facility]) Inject 10 Units under the skin at [...] :Type 2 diabetes mellitus with hyperlipidemia (CMS/HCC) ([facility]) TAKE 1 TABLET BY MOUTH TWICE A DAY 180 tablet Active empagliflozin (Jardiance) 10 MGIndications:Typ e 2 diabetes mellitus with hyperlipidemia (CMS/HCC) ([facility]) Take 1 tablet (10 mg) by mouth Once per day. 30 tablet Active FREESTYLE LITE test stripIndications: Type 2 diabetes mellitus with hyperlipidemia (CMS/HCC) ([facility]) Use to test blood sugar 3 times daily 100 each 025 2025 Active Lancets miscIndications:T ype 2 diabetes mellitus with hyperlipidemia (CMS/HCC) ([facility]) Use to test blood sugar 3 times daily 100 each Active Alcohol Swabs 70 % padsIndications:T ype 2 diabetes mellitus with hyperlipidemia (CMS/HCC) ([facility]) Use to test blood sugar 3 times daily 100 each 025 Active Blood Glucose Monitoring Suppl (FreeStyle Morrill Lite) w/Device kitIndications:Ty pe 2 diabetes mellitus with hyperlipidemia (CMS/HCC) ([facility]) Use to test blood sugar 3 times [...] Insulin Lispro solution 10 UnitsIndications:Newly diagnosed diabetes (CMS/HCC) 10 Units IJ Once Daily 02/01/2024 Active Active Problems Problem Noted Date Diagnosed Date History of endometrial cancer 08/03/2024 Overview (08/03/2024): s/p total hysterectomy 2012 Acute non-recurrent sinusitis 07/18/2024 Assessment & Plan (07/18/2024 11:20 AM EST): -discontinue OTC nasal spray -Augmentin x 10 days -continue fluticasone nasal spray -start loratadine -wilton on environmental triggers changes -advise may take [...] Plan: BG monitor to be purchased at [facility] (better cost d/t lack of current insurance). [...] Pulmonary hypertension 12/08/2022 Overview (08/15/2023): Follows w/ [facility] BP meds: Verapamil 180mg ER 2 [...] 09/20/19 23 Nonrheumatic tricuspid valve regurgitation 09/19 Nephritis 08/07/2020 [...] Data 08/03/2024 11:15 AM EST Office Visit [facility] [address] [place] [address] [phone] Chapo Dial ANP Non-seasonal allergic rhinitis due to other allergic [...] Insomnia, unspecified type 08/03/2024 Travel 07/27/2024 Refill [facility] [address] [place] [address] [phone] Chapo Dial ANP Type 2 diabetes mellitus with hyperlipidemia (CMS/HCC) ([facility]) 07/18/2024 11:00 AM EST Office Visit [facility] [address] [place] [address] [phone] Claudia Avina MD Acute non-recurrent sinusitis, unspecified location (Primary Dx) 07/18/2024 Travel 07/17/2024 Telephone [facility] [address] [place] [address] [phone] Chapo Dial ANP Nurse Triage 06/22/2024 Orders Only [facility] [address] [place] [address] [phone] Chapo Dial ANP 06/19/2024 9:40 AM EST Office Visit [facility] [address] [place] [address] [phone] Jarocho Austin MD Mild persistent asthma with acute exacerbation (Primary Dx); Benign essential hypertension; Congestion of nasal sinus 06/19/2024 Telephone [facility] [address] [place] [address] [phone] Chapo Dial ANP Nurse Triage 06/01/2024 11:00 AM EST Office Visit [facility] [address] [place] [address] [phone] Chapo Dial ANP Type 2 diabetes mellitus with hyperlipidemia (CMS/HCC) ([facility]) (Primary Dx); Encounter for immunization; Pulmonary hypertension ([facility]); Mixed hyperlipidemia; Benign essential hypertension 06/01/2024 Travel 05/25/2024 Travel 05/25/2024 Refill [facility] [address] [place] [address] [phone] Chapo Dial ANP Insomnia, unspecified type from Last 3 Months Immunizations Name Administration [...] with others, in a hotel, in a snf, living outside on the street, on a [...] Procedure Name Priority Date/Time Associated Diagnosis Comments US RENAL BI Routine 08/14/2024 6:25 AM EST CREATININE, SERUM Routine 08/06/2024 11: 26 AM [...] Recently Relevant to Health Maintenance Results * US RENAL BI (08/14/2024 6:25 AM EST) Anatomical Region Laterality Modality Abdomen Ultrasound 08/14/2024 6:25 AM EST Narrative 08/14/2024 6:26 AM EST ? [facility] ?[address] ?[place], [place] [address] ? Ultrasound Report ? Signed with Addenda ? Patient: Valdo Valverde,Caitlyn V ?MR#: ?? [id number] ? : 1980 ?Acct:[id number] ? Age/Sex: 44 / F ?ADM Date: 08/10/24 ? Loc: HO.US ? Attending Dr: Sylvia Juarez MD ? Ordering Physician: Sylvia Juarez MD ?? Date of Service: 08/10/24 ?? Procedure(s): US renal BI ?? Accession Number(s): [id number] ? cc: Sylvia Juarez MD; CHAPO DIAL NP ?ADDENDUM ?? This document has been electronically signed by: Mariana Fowler on ?? 08/14/2024 06:25:02 ? ADDENDUM: ?? Patient has history of prior renal mass treatment. Evaluation for post ?? ablation changes is limited on an ultrasound exam. Recommend dedicated CT ?? renal mass protocol for further evaluation. ? This document has been electronically signed by: Mariana Fowler on ?? 08/14/2024 08:41:07 ? Addendum Dictated By: ?Mariana Fowler MD ? Addendum Signed By: ? <Electronically signed by Mariana Fowler MD in OV> ? 08/14/24841 ?? Addendum Cosigned By: ? DD/ ? TD/TT: 08/14/24 ? CLINICAL HISTORY: Z85.528 - Personal history of other malignant neoplasm of kidney ? US Renal ? Comparison: None ? Findings: ?? The right kidney is normal in size, measuring 12.0 cm in length. The left ?? kidney is mildly enlarged in size, measuring 13.2 cm in length. Cortical ?? echogenicity is within normal limits. 3.3 cm complex cystic left lower ?? renal mass is seen with wall thickening. There is no hydronephrosis. ? IMPRESSION: ?? 1. 3.3 cm complex cystic left lower renal mass with wall thickening. ?? Recommend CT or MRI renal mass protocol for further evaluation. ? 2. Normal sonographic appearance of the right kidney. ? This document has been electronically signed by: Mariana Fowler on ?? 08/14/2024 06:25:02 ? Dictated By: ?Mariana Fowler MD ? Signed By: ?<Electronically signed by Mariana Fowler MD in OV> ? 08/14/24625 ? DD/ 4 ? TD/TT: 08/14/24624 ? Night Guard: ? Procedure Note Donotradhikainterpreter, Image - 08/14/[address] [address] Ultrasound Report Signed with Addenda Patient: Caitlyn Hercules VMR#: [id number] : 1980Acct:[id number] Age/Sex: 44 / FADM Date: 08/10/24 Loc: HO.US Attending Dr: Sylvia Juarez MD Ordering Physician: Sylvia Juarez MD Date of Service: 08/10/24 Procedure(s): US renal BI Accession Number(s): [id number] cc: Sylvia Juarez MD; CHAPO DIAL NP ADDENDUM This document has been electronically signed by: Mariana Fowler on 08/14/2024 06:25:02 ADDENDUM: Patient has history of prior renal mass treatment. Evaluation for post ablation changes is limited on an ultrasound exam. Recommend dedicated CT renal mass protocol for further evaluation. This document has been electronically signed by: Mariana Fowler on 08/14/2024 08:41:07 Addendum Dictated By: Mariana Fowler MD Addendum Signed By: <Electronically signed by Mariana Fowler MD in OV> 08/14/24841 Addendum Cosigned By: DD/ TD/TT: 08/14/24 CLINICAL HISTORY: Z85.528 - Personal history of other malignant neoplasmof kidney US Renal Comparison: None Findings: The right kidney is normal in size, measuring 12.0 cm in length. The left kidney is mildly enlarged in size, measuring 13.2 cm in length. Cortical echogenicity is within normal limits. 3.3 cm complex cystic left lower renal mass is seen with wall thickening. There is no hydronephrosis. IMPRESSION: 1. 3.3 cm complex cystic left lower renal mass with wall thickening. Recommend CT or MRI renal mass protocol for further evaluation. 2. Normal sonographic appearance of the right kidney. This document has been electronically signed by: Mariana Fowler on 08/14/2024 06:25:02 Dictated By: Mariana Fowler MD Signed By: <Electronically signed by Mariana Fowler MD in OV> 08/14/24625 DD/ 4 TD/TT: 08/14/24624 Night Guard: us [facility] External Provider IMG US PROCEDURES Edited Result - Final * Creatinine, Serum (08/06/2024 11:26 AM EST) Creatinine, Serum 1.09 0.5 - 1.4 mg/dL [facility] Estimated Glomerular Filt Rate 55 [facility] Comment:Chronic Kidney Disea se: Estimated GFR < 60 mL/min/1.08t8Muouvu Kidney Disease: Estimated GFR < 15 mL/min/1.73m2 08/06/2024 11:2 6 AM EST 08/06/2024 11:26 AM EST Generic External Data Provider LAB BLOOD ORDERAB LES Final Result Performing Organization Address City/[facility]/ZIP Co de Phone Number [facility] [address] [place] [phone] * (ABNORMAL) BUN (Blood Urea Nitrogen) (08/06/2024 11:26 AM EST) Urea Nitrogen (BUN) 17(H) 9 - 16 mg/dL [facility] 08/06/2024 11:2 6 AM EST 08/06/2024 11:26 AM EST Generic External Data Provider LAB BLOOD ORDERAB LES Final Result Performing Organization Address City/[facility]/ZIP Co de Phone Number [facility] [address] [place] [phone] * Electrolyte Panel (08/06/2024 11:26 AM EST) Sodium 140 135 - 145 mmol/L [facility] Potassium 4.1 3.3 - 5.1 mmol/L [facility] Chloride 106 96 - 108 mmol/L [facility] Carbon Dioxide 25 22 - 29 mmol/L [facility] Anion Gap 13 12 - 20 [facility] 08/06/2024 11:2 6 AM EST 08/06/2024 11:26 AM EST Generic External Data Provider LAB BLOOD ORDERAB LES Final Result Performing Organization Address [facility] de Phone Number [facility] [address] [place] [phone] [phone] * (ABNORMAL) Protein Creatinine Ratio, Urine (08/06/2024 11:22 AM EST) Creatinine, Urine 156.24 mg/dL [facility] Protein, Total, Random Urine 270(H) <12 mg/dL [facility] Protein/Creati nine Ratio, Ur 1.73(H) <0.2 [facility] Comment:The spot urine prote in:creatinine ratio may increase to 0.3during normal . 08/06/2024 11:2 2 AM EST 08/06/2024 11:30 AM EST Generic External Data Provider LAB URINE ORDERAB LES Final Result Performing Organization Address [facility] de Phone Number [facility] [address] [place] [phone] * BI Mammogram Screening Tomosynthesis Bilateral (06/22/2024 2:30 PM EST) Anatomical Region Laterality Modality Breast Bilateral Mammography 06/22/2024 2:30 PM EST Narrative 07/01/2024 10:13 AM EST ? [facility] ? [address] ?[place] [address] ? Mammography Report ? Signed ? Patient: Diomedes,Caitlyn V ?MR#: ?? [id number] ? : 1980 ?Acct:[id number] ? Age/Sex: 44 / F ?ADM Date: 01/03/25 ? Loc: HO.MAMMO ? Attending Dr: Chapo Dial SUSTAINABILITY OFFICER ? Ordering Physician: CHAPO DIAL NP ?Results: 2Benign Fin ?? dings ? Date of Service: 06/22/24 ?Follow Up: 1 Year From Orig ?? inal Mammogram ? Procedure(s): MM tomosynthesis screening BI ?? Accession Number(s): [id number] ? cc: CHAPO DIAL NP ? EXAMINATION: [...] by Amy Nino, DO in OV> ? 07/01/240 ? DD/ 1430 ? TD/TT: 06/22/24 1457 ? Night Guard: ? Procedure Note Donotradhikainterpreter, Image - 07/01/2024 [facility] [address] [place] [address] Mammography Report Signed Patient: Caitlyn Hercules VMR#: [id number] : 1980Acct:[id number] Age/Sex: 44 / FADM Date: 06/22/24 Loc: HO.MAMMO Attending Dr: Chapo Dial NP Ordering Physician: CHAPO DIAL NPResults: 2Benign Jerson ricardo Date of Service: 06/22/24Follow Up: 1 Year From Orig inal Mammogram Procedure(s): MM tomosynthesis screening BI Accession Number(s): [id number] cc: CHAPO DIAL NP EXAMINATION: MM SCREENING [...] 07/01/24 1010 DD/ 1430 TD/TT: 06/22/24 1457 Night Guard: Chapo Dial ANP IMG BI PROCEDURES Final Result * POCT Rapid Influenza A CORADO ID NOW (06/19/2024 9:59 AM EST) [facility] Influenza A Negative Negative, Indeterminate [facility] QC Media Lot # [id number] [facility] Lot# Expiration Date [facility] Swab 06/19/2024 9:59 AM EST Jarocho Austin MD POINT OF CARE TEST ENTER/EDIT OR DERABLES Final Result [facility] [address] [place] [address] [phone] * POCT Rapid Strep A CORADO ID NOW (06/19/2024 9:58 AM EST) [facility] Rapid Strep A Screen Negative Negative, None Detected QC Media Lot # [id number] Lot# Expiration Date [id number] Swab 06/19/2024 9:58 AM EST Jarocho Austin MD POINT OF CARE TEST ENTER/EDIT OR DERABLES Final Result * POCT Rapid Covid-19 BinaxNOW (06/19/2024 9:56 AM EST) [facility] Rapid COVID Ag Negative QC Media Lot # [id number] Lot# Expiration Date 958,026 Swab 06/19/2024 9:56 AM EST Jarocho Austin MD POINT OF CARE TEST ENTER/EDIT OR DERABLES Final Result * (ABNORMAL) POCT HGB A1C (06/01/2024 11:57 AM EST) Pathologist [facility] Hemoglobin A1C 6.6(A) 4.0 - 6.0 % QC Media Lot # [id number] Lot# Expiration Date 8995, Blood 06/01/2024 11:5 7 AM EST Chapo CORRALES POINT OF CARE TEST ENTER/EDIT OR DERABLES Final Result * (ABNORMAL) POCT Glucose (06/01/2024 11:49 AM EST) Pathologist [facility] Glucose Blood, POC 159(A) 60 - 200 mg/dL QC Media Lot # [id number] Lot# Expiration Date , Blood Capillary blood specimen / Unknown 06/01/2024 11:49 AM EST Chapo CORRALES POINT OF CARE TEST ENTER/EDIT OR DERABLES Edited Result - Final * (ABNORMAL) Lipid Panel, Standard (11/25/2023 1:39 PM EDT) Pathologist [facility] Triglycerides 155(H) <150 mg/dL [facility] Comment:Desirable Triglyceri de: less than 150 mg/dLBorderline High Triglyceride 150-199 mg/dLHigh Triglyceride: 200-499 mg/dLVery High Triglyceride: greater than or equal to 5OO mg/dL Cholesterol 205(H) <200 mg/dL [facility] Comment:Desirable Cholestero l: less than 200 mg/dLBorderline High Cholesterol: 200-239 mg/dLHigh Cholesterol: greater than 239 mg/dL LDL Cholesterol Calculated 119(H) <100 mg/dL [facility] Comment:Desirable LDL: less than 100 mg/dLNear Optimal/Above Optimal LDL: 110- 129 mg/dLBorderline High LDL: 130-159 mg/dLHigh LDL: 160-189 mg/dLVery High LDL: greater than or equal to 190 mg/dL HDL Cholesterol 55 >40 mg/dL [facility] Comment:Desirable HDL: great er than 40 mg/dL Note: This HDL assay may give artificially low results in patients with liver disease. 11/25/2023 1:39 PM EDT 11/25/2023 1:39 PM EDT Generic External Data Provider LAB BLOOD ORDERAB LES Final Result Performing Organization Address City/State/[facility] Co de Phone Number [facility] [address] [place] [phone] * Pap Smear (11/18/2015) Pap Negative for intraephithelial lesion or malignancy Negative for intraephithelial lesion or malignancy, Other HPV Undetected 11/18/2015 Historical Provider HEALTH MAINTENANCE Final Result from Last 3 Months or Most Recently Relevant to Health Maintenance Insurance [facility] [place], [place] [facility] * Guarantor: Caitlyn Hercules Account Type Relation to Patient Date of Phone Billing Address Personal/Family Self [address] * Guarantor: Caitlyn Hercules Account Type Relation to Patient Date of Phone Billing Address Personal/Family Self [facility] [address] [place], [place] Care Teams Cell Coverer Relationship Specialty Start Date End Date Chapo Dial ANP [address] [place] [address] PCP - General Family Medicine 07/30/20
--- OUTSIDE RECORDS SUMMARY | 2024-08-20 17:10 | XMS_ITS | Encounter Summary ---
Author Organization [employer] Address [address] [facility] [address] [place] [address] Care Team Providers Care Senior Telecommunications Engineer Name Role Phone Niki Allen ANTONI Primary [...] with others, in a hotel, in a prison, living outside on the street, on a [...] as of this encounter Care Teams Senior Telecommunications Engineer Relationship Specialty Start Date End Date Niki Allen ANP [address] [place] [phone] PCP - General Family Medicine 07/30/20 documented as of this encounter
--- OUTSIDE RECORDS SUMMARY | 2024-08-20 17:10 | XMS_ITS | Encounter Summary ---
Author Organization [employer] Address [address] [facility] [address] [place] [address] Care Team Providers Care Paper Sample Clerk Name Role Phone Niki Allen Primary Care Provider [phone] Reason for Visit * Reason Comments Med Refill Encounter Details Date Type Department Care Team ([facility] st Contact Info) Description 08/16/2023 Refill [facility] [address] [place], [place] [phone] Niki Allen ANP [address] [place], [place] [phone] Mixed hyperlipidemia; Non-seasonal allergic rhinitis due to [...] trigger documented in this encounter Care Teams Paper Sample Clerk Relationship Specialty Start Date End Date Niki Allen ANP [address] [place] [phone] PCP - General Family Medicine 07/30/20 documented as of this encounter
--- OUTSIDE RECORDS SUMMARY | 2024-08-20 17:10 | XMS_ITS | Encounter Summary ---
Author Organization [email or web address] Address [address] [facility] 7t [place] [address] Care Team Providers Care Institute Director Name Role Phone Niki Allen Primary Care Provider [phone] Encounter Details Date Type Department Care Team (Late st Contact Info) Description 07/12/2022 Orders Only [facility] [address] [place] [address] Soraida Segundo LPN Social History Tobacco Use [...] (04/18/2023 7:37 PM EDT) Color Urine Yellow [facility] Appearance Urine Cloudy [facility] PH 6.5 5.0 - 9.0 [facility] Glucose Urine UA Negative Negative mg/dL [facility] Urine Blood Negative Negative [facility] Specific [place] - Urine 1.020 1.005 - 1.025 [facility] Urine Protein 300 (3+)(A) Neg-Trace mg/dL [facility] Urine Ketones Negative Negative mg/dL [facility] Nitrite Urine Negative Negative [facility] Leukocyte Esterase Urine Negative Negative [facility] RBC Urine 0-2 0 - 2 /HPF [facility] Urine WBC 0-5 0 - 5 /HPF [facility] Urine Squamous Epithelial Cell 11-20 0 - 2 /HPF [facility] Urine Bacteria 2+ None Seen [facility] Hyaline Casts, Urine 3-5 0 - 2 /LPF [facility] 04/18/2023 7:37 PM EDT 04/18/2023 7:40 PM EDT Narrative [facility] - 04/18/2023 7:50 PM EDT [id number], Clean Catch us [facility] External Provider LAB URI NE ORDERABLES Final Result [facility] [address] [place] [address] [phone] * Sed Rate by Modified Beverley (04/18/2023 2:12 PM EDT) Erythrocyte Sedimentation Rate 17 0 - 20 MM/HR [facility] Comment:Patients with polycy themia and many hemoglobin abnormalitiesmay have depressed sed rates whereas patients with anemiamay have elevated sed rates. 04/18/2023 2:12 PM EDT 04/18/2023 5:23 PM EDT [facility] External Provider LAB BLO OD ORDERABLES Final Result Performing Organization Address [facility]/ZIP Co de Phone Number [facility] [address] [place] [address] [phone] * TSH (04/18/2023 2:12 PM EDT) Thyroid Stimulating Hormone 0.65 0.32 - 4.0 uIU/mL [facility] Comment:TSH 3rd Generation ( [facility]) 04/18/2023 2:12 PM EDT 04/18/2023 2:[address] [facility] [place] External Data Provider LAB BLOOD ORDERAB LES Final Result Performing Organization Address [facility]/ZIP Co de Phone Number [facility] [address] [place] [address] [phone] * (ABNORMAL) Basic Metabolic Panel (04/18/2023 2:12 PM EDT) Sodium 141 135 - 145 mmol/L [facility] Potassium 3.9 3.3 - 5.1 mmol/L [facility] Chloride 102 96 - 108 mmol/L [facility] Carbon Dioxide 28 22 - 29 mmol/L [facility] Anion Gap 15 12 - 20 [facility] Urea Nitrogen (BUN) 12 9 - 16 mg/dL [facility] Creatinine, Serum 1.23 0.5 - 1.4 mg/dL [facility] Creatinine Clr Calc Pharmacy 77.2 [facility] Comment:Provided height and weight: 165.1 cm,119.748 kg.eGFR (calculated from the MDRD study equation) and eCrCl(calculated from the Cockcroft-Gault equation) are based ondifferent parameters and may not yield comparable results.If eCrCl result is absurd, please check patient'sheight/weight. Estimated Glomerular Filt Rate 48 [facility] Comment:NOTE: For -Am erican individuals, multiply the result by 1.210.Chronic Kidney Disease: Estimated GFR < 60 mL/min/1.39m1Viypmk Kidney Disease: Estimated GFR < 15 mL/min/1.73m2 Glucose 144(H) 60 - 115 mg/dL [facility] Calcium 9.3 8.4 - 10.2 mg/dL [facility] 04/18/2023 2:12 PM EDT 04/18/2023 2:16 PM EDT Generic External Data Provider LAB BLOOD ORDERAB LES Final Result Performing Organization Address [facility] Co de Phone Number [facility] [address] [place] [phone] * (ABNORMAL) Hepatic Function Panel (04/18/2023 2:12 PM EDT) Bilirubin, Total 0.4 0.0 - 1.0 mg/dL [facility] Bilirubin, Direct 0.1 0.0 - 0.5 mg/dL [facility] Aspartate Amino Transferase 20 5 - 31 U/L [facility] Alanine Aminotransferase 19 0 - 31 U/L [facility] Total Protein 8.1(H) 6.5 - 8.0 g/dL [facility] Albumin Level 3.9 3.5 - 5.0 g/dL [facility] Alkaline Phosphatase 78 39 - 117 U/L [facility] 04/18/2023 2:12 PM EDT 04/18/2023 2:16 PM EDT [facility] External Provider LAB BLO OD ORDERABLES Final Result Performing Organization Address [facility] Co de Phone Number [facility] [address] [place] [phone] * (ABNORMAL) CBC auto differential (04/18/2023 2:12 PM EDT) White Blood Count 10.5 4.8 - 10.8 X10*3/uL [facility] Red Blood Count 4.97 4.20 - 5.50 X10*6/uL [facility] Hemoglobin 13.3 12.0 - 16.0 g/dl [facility] Hematocrit 42.1 37.0 - 47.0 % [facility] Mean Corpuscular Volume 84.7 80.0 - 98.0 fL [facility] Mean Corpuscular Hemoglobin 26.8(L) 27.0 - 33.0 pg [facility] Mean Corpuscular HGB Conc 31.6 31.0 - 35.0 g/dl [facility] Red Cell Distribution Width 17.0(H) 11.0 - 16.0 % [facility] Platelet Count 298 160 - 400 X10*3/uL [facility] Mean Platelet Volume 10.9 9.4 - 12.3 fL [facility] Neutrophils Percent Auto 61.6 45 - 73 % [facility] Imm Gran Pct Auto 0.2 0.0 - 0.4 % [facility] Lymphocytes Percent Auto 28.1 20 - 40 % [facility] Monocytes Percent Auto 8.0 2 - 11 % [facility] Eosinophils Percent Auto 1.2 0 - 4 % [facility] Basophils Percent Auto 0.9 0 - 2 % [facility] NRBC Pct Auto 0.0 0.0 - 0.2 /100WBC [facility] Neutrophils Absolute Auto 6.4 2.0 - 8.3 x10*3/uL [facility] Imm Gran Abs Auto 0.02 0.00 - 0.03 X10*3/uL [facility] Lymphocytes Absolute Auto 2.9 1.2 - 4.9 X10*3/uL [facility] Monocytes Absolute Auto 0.8 0.1 - 1.2 X10*3/uL [facility] Eosinophils Absolute Auto 0.1 0.0 - 0.4 X10*3/uL [facility] Basophils Absolute Auto 0.1 0.0 - 0.2 X10*3/uL [facility] NRBC Abs Auto 0.000 0.0 - 0.012 X10*3/uL [facility] 04/18/2023 2:12 PM EDT 04/18/2023 2:16 PM EDT [facility] External Provider LAB BLO OD ORDERABLES Final Result Performing Organization Address [facility] Co de Phone Number [facility] [address] [place] [address] [phone] * (ABNORMAL) Protein Creatinine Ratio, Urine (09/09/2022 10:57 AM EDT) Creatinine, Urine 49.94 mg/dL [facility] Protein, Total, Random Urine 240(H) <12 mg/dL [facility] Protein/Creati nine Ratio, Ur 4.81(H) <0.2 [facility] Comment:The spot urine prote in:creatinine ratio may increase to 0.3during normal . 09/09/2022 10:5 7 AM EDT 09/09/2022 12:07 PM EDT [facility] External Provider LAB URI NE ORDERABLES Final Result Performing Organization Address [facility] de Phone Number [facility] [address] [place] [address] [phone] documented in this encounter Visit Diagnoses Not on filedocumented in this encounter Care Teams Institute Director Relationship Specialty Start Date End Date Niki Allen ANP [address] [place] [phone] PCP - General Family Medicine 07/30/20 documented as of this encounter
--- OUTSIDE RECORDS SUMMARY | 2024-08-20 17:10 | XMS_ITS | Clinical Summary ---
Author Organization [facility] Address [address] [place] [address] Phone Care Team Providers Care Atm Servicer Name Role Phone Niki Allen OTOLARYNGOLOGY REP Primary Care Provider Unavailabl e Allergies Active [...] Vaccine (#1) 2024 Insurance [place]ID [place] Care Teams Atm Servicer Relationship Specialty Start Date End Date Niki Allen NP PCP - General Nurse Practitioner 01/13/22
--- OUTSIDE RECORDS SUMMARY | 2024-08-20 17:10 | XMS_ITS | Encounter Summary ---
Author Organization [employer] Address [address] [place] [address] [address] [place] [address] Care Team Providers Care Yard Jockey Name Role Phone Niki Allen Primary Care Provider [phone] Reason for Referral * Consultation (Routine) - Closed Specialty Diagnoses / Procedures Referred By Rodo pete Referred To Contact Gastroenterology Diagnoses Screening for malignant neoplasm of colon Niki Allen ANP [address] [place] [address] Phone: tel: fax: Referral ID Status Reason Start Date Expiration Date V isits Requested Visits Authorized [id number] Closed Specialty Services Required 08/03/2024 08/03/2025 1 1 Reason for Visit * Reason Comments Follow-up Encounter Details Date Type Department Care Team (Latest Contact Info) Description 08/03/2024 11:15 AM EST Office Visit [facility] [address] [place] [address] [phone] Niki Allen ANP [address] [place], [place] [phone] Non-seasonal allergic rhinitis due to other allergic trigger (Primary Dx); IgA nephropathy; Class 3 severe obesity with serious comorbidity and body mass index (BMI) of 40.0 to 44.9 in adult, unspecified obesity type (CMS/HCC); Type 2 diabetes mellitus with hyperlipidemia (CMS/HCC) ([facility]/HCC); Screening for malignant neoplasm of colon; History [...] with others, in a hotel, in a nursing home, living outside on the street, on [...] the past 12 months, has t he [place], gas, oil or water [employer] threatened to shut off services in your [...] Type 2 diabetes mellitus with hyperlipidemia (CMS/HCC) ([facility]) Screening for malignant neoplasm of colon History of endometrial cancer Mixed hyperlipidemia Food allergy Dermatitis due to food taken internally Acute non-recurrent sinusitis, unspecified location Insomnia, unspecified type documented in this encounter Additional Health Concerns Assessment Noted Time PHQ-9 Depression Total Score: 5 03/02/20 24 2:07 PM EDT documented as of this encounter Care Teams Yard Jockey Relationship Specialty Start Date End Date Niki Allen ANP [address] [place] [phone] PCP - General Family Medicine 07/30/20 documented as of this encounter
--- OUTSIDE RECORDS SUMMARY | 2024-08-20 17:10 | XMS_ITS | Encounter Summary ---
Author Organization [id number] Address [address] [facility] 7t [place] [address] Care Team Providers Care Angle Shearer Name Role Phone Chapo Dial ANTONI Primary Care Provider [phone] Encounter Details Date Type Department Care Team [...] with others, in a hotel, in a long term, living outside on the street, on a [...] EST documented in this encounter Results * US RENAL BI (08/14/2024 6:25 AM EST) Anatomical Region Laterality Modality Abdomen Ultrasound 08/14/2024 6:25 AM EST Narrative 08/14/2024 6:26 AM EST ? [facility] ?[address] ?[place] [address] ? Ultrasound Report ? Signed with Addenda ? Patient: Diomedes,Caitlyn V ?MR#: ?? [id number] ? : 1980 ?Acct:[id number] ? Age/Sex: 44 / F ?ADM Date: 08/10/24 ? Loc: HO.US ? Attending Dr: Sylvia Juarez MD ? Ordering Physician: Sylvia Juarez MD ?? Date of Service: 08/10/24 ?? Procedure(s): US renal BI ?? Accession Number(s): [id number] ? cc: Sylvia Juarez MD; CHAPO DIAL [...] on ?? 08/14/2024 06:25:02 ? Dictated By: ?Maraina Fowler MD ? Signed By: ?<Electronically signed by Mariana Fowler MD in OV> ? 08/14/24 0626 ? DD/ ? TD/TT: 08/14/2425 ? Real Estate Lawyer: ? Procedure Note Angela, Image - 08/14/2024 [facility] [address] [facility] [place] [address] Ultrasound Report Signed with Addenda Patient: Caitlyn Hercules VMR#: [id number] : 1980Acct:[id number] Age/Sex: 44 / FADM Date: 08/10/24 Loc: HO.US Attending Dr: Sylvia Juarez MD Ordering Physician: Sylvia Juarez MD Date of Service: 08/10/24 Procedure(s): US renal BI Accession Number(s): [id number] cc: Sylvia Juarez MD; CHAPO DIAL NP [...] Fowler MD Signed By: <Electronically signed by Mairana Fowler MD in OV> 08/14/24625 DD/ 4 TD/TT: 08/14/24624 Real Estate Lawyer: us [facility] External Provider IMG US PROCEDURES Edited Result - Final * Creatinine, Serum (08/06/2024 11:26 AM EST) Creatinine, Serum 1.09 0.5 - 1.4 mg/dL [facility] Estimated Glomerular Filt Rate 55 [facility] Comment:Chronic Kidney Disea se: Estimated GFR < 60 mL/min/1.85n6Kqfeex Kidney Disease: Estimated GFR < 15 mL/min/1.73m2 08/06/2024 11:2 6 AM EST 08/06/2024 11:26 AM EST Generic External Data Provider LAB BLOOD ORDERAB LES Final Result Performing Organization Address City/[facility]/ZIP Co de Phone Number [facility] [address] [place] [phone] * (ABNORMAL) BUN (Blood Urea Nitrogen) (08/06/2024 11:26 AM EST) Urea Nitrogen (BUN) 17(H) 9 - 16 mg/dL [facility] 08/06/2024 11:2 6 AM EST 08/06/2024 11:26 AM EST Generic External Data Provider LAB BLOOD ORDERAB LES Final Result Performing Organization Address City/[facility]/ZIP Co de Phone Number [facility] [address] [place] [phone] * Electrolyte Panel (08/06/2024 11:26 AM EST) Sodium 140 135 - 145 mmol/L [facility] Potassium 4.1 3.3 - 5.1 mmol/L [facility] Chloride 106 96 - 108 mmol/L [facility] Carbon Dioxide 25 22 - 29 mmol/L [facility] Anion Gap 13 12 - 20 [facility] 08/06/2024 11:2 6 AM EST 08/06/2024 11:26 AM EST us Generic External Data Provider LAB BLOOD ORDERAB LES Final Result Performing Organization Address [facility] Co de Phone Number [facility] [address] [place] [address] [phone] * (ABNORMAL) Protein Creatinine Ratio, Urine (08/06/2024 11:22 AM EST) Creatinine, Urine 156.24 mg/dL [facility] Protein, Total, Random Urine 270(H) <12 mg/dL [facility] Protein/Creati nine Ratio, Ur 1.73(H) <0.2 [facility] Comment:The spot urine prote in:creatinine ratio may increase to 0.3during normal . 08/06/2024 11:2 2 AM EST 08/06/2024 11:30 AM EST us Generic External Data Provider LAB URINE ORDERAB LES Final Result Performing Organization Address [facility] Co de Phone Number [facility] [address] [place] [phone] documented in this encounter Visit Diagnoses Not on filedocumented in this encounter Additional Health Concerns Assessment Noted Time PHQ-9 Depression Total Score: 5 03/02/20 24 2:07 PM EDT documented as of this encounter Care Teams Angle Shearer Relationship Specialty Start Date End Date Chapo Dial ANP [address] [place] [phone] PCP - General Family Medicine 07/30/20 documented as of this encounter
--- OUTSIDE RECORDS SUMMARY | 2024-08-20 17:10 | XMS_ITS | Encounter Summary ---
Author Organization [employer] Address [address] [facility] 7t [place] [address] Care Team Providers Care Back Closer Name Role Phone Niki Allen Primary Care Provider [phone] Reason for Visit * Reason Onset Date Comments Call Back Request 04/18/2023 Encounter Details Date Type Department Care Team ([facility] Contact Info) Description 04/18/2023 Telephone [facility] [address] [place], [place] [phone] Niki Allen ANP [address] [place], [place] [phone] Call Back Request Social History Tobacco Use [...] notes were fax over same day 04/17/2023, Training And Development Officer transferred over to HIM to verify if notes were received. Please contact Yamila at [phone] documented in this encounter Plan of Treatment Not on file documented as of this encounter Visit Diagnoses Not on filedocumented in this encounter Care Teams Back Closer Relationship Specialty Start Date End Date Niki Allen ANP [address] [place] [phone] PCP - General Family Medicine 07/30/20 documented as of this encounter
--- OUTSIDE RECORDS SUMMARY | 2024-08-20 17:10 | XMS_ITS | Encounter Summary ---
Author Organization [employer] Address [address] [facility] 7t [place] [address] Care Team Providers Care Airplane Gas Tank Liner Assembler Name Role Phone Niki Allen Primary Care Provider [phone] Reason for Visit * Reason Comments Med Refill Encounter Details Date Type Department Care Team ([facility] st Contact Info) Description 07/27/2024 Refill [facility] [address] [place], [place] [phone] Niki Allen ANP [address] [place], [place] [phone] Type 2 diabetes mellitus with hyperlipidemia ([facility]/HCC) ([facility]) Social History Tobacco Use Types Packs/Day Years [...] documented as of this encounter Care Teams Airplane Gas Tank Liner Assembler Relationship Specialty Start Date End Date Niki Allen ANP [address] [place] [address] PCP - General Family Medicine 07/30/20 documented as of this encounter
== END 2024-08-20 15:53 | disposition home or self-care (01) ==
PROVIDERS: PCP Nurse Practitioner Primary Care; Visit Provider Nurse Practitioner Family
DX: R07.89 Other chest pain (principal); I51.9 Heart disease, unspecified; I51.89 Other ill-defined heart diseases; I51.7 Cardiomegaly; E66.01 Morbid (severe) obesity due to excess calories; I10 Essential (primary) hypertension
CPT/HCPCS: 93010; 99214

== ENCOUNTER → 2024-08-20 14:24 | Outpatient (BNVA) | payer MEDICAID, SELFPAY | PROVIDERS: PCP Nurse Practitioner Primary Care; Visit Provider Nurse Practitioner Family | DX: R07.89 Other chest pain (principal); I50.89 Other heart failure; I11.0 Hypertensive heart disease with heart failure; E66.01 Morbid (severe) obesity due to excess calories; Z68.41 Body mass index [BMI] 40.0-44.9, adult | CPT/HCPCS: 93005; 99212 ==

== ENCOUNTER 2024-08-31 17:56 | Outpatient (REF) | payer OTHER, MEDICAID, SELFPAY ==
[2024-08-31 18:19] LABS: Appearance Urine Clear; Color Urine Yellow; Glucose Urine UA 250 mg/dL (Negative); Leukocyte Esterase Urine Negative (Negative); Nitrite Urine Negative (Negative); PH 5.5 (5.0-9.0); UMIC TRIGGER UACC YES; Urine Blood Negative (Negative); Urine Ketones Negative (Negative); Urine Protein 100 (2+) mg/dL (Neg-Trace)
[2024-08-31 18:22] LABS: Bacteria Urine None Seen (None Seen); Hyaline Casts Urine 0-2 /LPF (0-2); RBC Urine 0-2 /HPF (0-2); WBC Urine 0-5 /HPF (0-5)
[2024-09-01 08:39] LABS: Bacterial Vaginosis PCR POSITIVE (Negative); Candida Group PCR NOT DETECTED (Not Detect); Candida glab krusei PCR NOT DETECTED (Not Detect); Trichomonas vaginalis PCR NOT DETECTED (Not Detect)
== END 2024-08-31 17:57 | disposition home or self-care (01) ==
LOC: HO.LNP 17:56
DX: R39.9 Unspecified symptoms and signs involving the genitourinary system (principal); N89.8 Other specified noninflammatory disorders of vagina
CPT/HCPCS: 81001; 81515

== ENCOUNTER 2024-09-28 09:38 | Outpatient (AMB) | payer OTHER, SELFPAY ==
--- OUTSIDE RECORDS SUMMARY | 2024-09-28 10:09 | XMS_ITS | Clinical Summary ---
Author Organization [facility] Address [address] [place] [address] Phone Care Team Providers Care Manager Bank Name Role Phone Tiffany Niki Perez NP Primary Care Provider [phone] Allergies Active Allergy Reactions Criticality Noted Date [...] capsule Take 2,000 Units by mouth daily 01/24/202 1 Active sertraline (ZOLOFT) 100 MG tablet Take [...] Due Date Last Done Comments Pneumococcal Vaccine: Peds ( 0 to 5 Years) and At-Risk Patients (6 to 49 Years) (1 of 2 - PCV) 1986 Hepatitis B Vaccine (1 of 3 - 19+ 3-dose series) 06/10 Influenza Vaccine (Season Ended) 2025 Insurance Medicaid [place] Medicaid [place] Care Teams Manager Bank Relationship Specialty Start Date End Date Niki Allen NP PCP - General Nurse Practitioner 01/13/22
--- OUTSIDE RECORDS SUMMARY | 2024-09-28 10:09 | XMS_ITS | Encounter Summary ---
Author Organization [employer] Address [address] [facility] 7t [place] [address] Care Team Providers Care Correctional Supervising Cook Name Role Phone Niki Allen Primary Care Provider Reason for Visit * Reason Onset Date Comments Call Back Request 04/18/2023 Encounter Details Date Type Department Care Team ([facility] Contact Info) Description 04/18/2023 Telephone [facility] [address] [place], [place] [phone] Niki Allen ANP [address] [place], [place] [phone] Call Back Request Social History Tobacco Use [...] notes were fax over same day 04/17/2023, Rubber Stamps And Dies Supervisor transferred over to HIM to verify if notes were received. Please contact Yamila at [phone] documented in this encounter Plan of Treatment Upcoming Encounters Date Type Department Care Team (Late st Contact Info) Description 12/03/2024 11:15 AM EDT Office Visit [facility] [address] [place] [address] Niki Allen ANP [address] [place] [address] documented as of this encounter Visit Diagnoses Not on filedocumented in this encounter Care Teams Correctional Supervising Cook Relationship Specialty Start Date End Date Niki Allen ANP [address] [place] [address] PCP - General Family Medicine 07/30/20 documented as of this encounter
--- OUTSIDE RECORDS SUMMARY | 2024-09-28 10:09 | XMS_ITS | Clinical Summary ---
Author Organization [facility] Address [address] [place] [address] Phone Care Team Providers Care B2B Account Executive Name Role Phone Niki Allen NP Primary Care Provider [phone] Allergies Active Allergy Reactions Criticality Noted Date [...] non-recurrent sinusitis 07/18/2024 Type 2 diabetes mellitus wit h hyperlipidemia ([facility] V24, [facility] V28) 02/13/2024 Overview (07/19/2024): new dx 01/2024, metformin 500mg BID, lantus 10 units with plan to increase Cigarette nicotine dependence without complicati on 08/15/2023 Mixed hyperlipidemia 08/15/2023 Hypoxia 12/08/2022 Pulmonary hypertension ([facility] V24, [facility] V28 ) 12/08/2022 Overview (07/19/2024): Follows w/ [facility] Cards BP meds: Verapamil 180mg ER 2 [...] Nephrectomy Partial Nephrectomy Malignant tumor of kidney pa renchyma ([facility] V24, [facility] V28) 01/28/2014 Overview (07/19/2024): Renal Carcinoma Immunizations Name [...] AM EDT Office Visit Bariatric Surgery - [place] [address] [facility] [address] [place] [address] Liv Cartagena PA [address] [facility] [address] [place] [address] Health Maintenance Due Date Last Done Comments Breast Cancer Screening 1980 Diabetes: Annual GFR (Glomerular Filtration Rate) 1980 Diabetes: Annual Foot Exam 1990 Diabetes: Annual Retina Eye Exam 1990 Cervical Cancer Screening: Pap Smear 2001 Pneumococcal [...] on patient's age to complete this topic Hepatitis A Vaccines Aged Out No long er eligible based on patient's age to complete this topic IPV Vaccines Aged Out No longer eligi ble based on patient's age to complete this topic MMR Vaccines Aged Out No longer eligi ble based on patient's age to complete this topic Meningococcal ACWY Vaccine Aged Out N o longer eligible based on patient's age to complete this topic Meningococcal B Vaccine Aged Out No l onger eligible based on patient's age to complete this topic RSV Immunization Patients Under 20 months Aged Out No longer eligible based on patient's age to complete this topic Varicella Vaccines Aged Out No longer eligible based on patient's age to complete this topic Insurance MEDICAID - [place] [employer] Care Teams B2B Account Executive Relationship Specialty Start Date End Date Niki Allen NP [address] [place] [phone] PCP - General 07/19/24
--- OUTSIDE RECORDS SUMMARY | 2024-09-28 10:09 | XMS_ITS | Clinical Summary ---
Author Organization [employer] Address [address] [facility] [facility] [address] [place] [address] Care Team Providers Care Electro Mechanical Technician Name Role Phone Chapo Dial ANTONI Primary Care Provider [phone] Allergies Active Allergy Reactions Criticality Noted Date Comments Aspirin Unknown 03/30/2013 Other reaction(s): Other (See Comments) Ibuprofen Other 01/04/2012 Other reaction(s): hives/chest tightness, Other (see comments) No NSAIDS per renal Empagliflozin Hives 08/31/2024 Metronidazole 01/02/2016 Other reaction(s): local itching reaction to cream Pork Allergy Anaphylaxis High 08/07/2020 Red Dye #40 (Allura Red) 08/07/2020 Varenicline 08/17/2016 Other reaction(s): hives & hallucinations Medications Blood Pressure kitIndications:P ulmonary hypertension (CMS/HCC),Benign essential hypertension 1 kit in [...] day. Active nicotine polacrilex (Nicorette) 2 MG gumIndications:C ontinuous dependence on cigarette smoking CHEW 1 EACH (2 MG) IF NEEDED FOR SMOKING CESSATION. 110 each 2 Active triamcinolone (Kenalog) 0.1 % creamIndications :Rash APPLY TOPICALLY 2 TIMES DAILY FOR UP TO 28 DAYS 30 g 1 Active insulin glargine (Lantus SoloStar) 100 UNIT/ML penIndications:N ewly diagnosed diabetes (CMS/[facility]) Inject 10 Units under the skin at bedtime. 3 mL 2 024 2024 Active pen needle 32G x 4 mm misc Use to inject Lantus once per day 100 each 12 Active pantoprazole (ProtoNix) 40 MG EC tabletIndication s:Heartburn TAKE 1 TABLET BY MOUTH EVERY DAY IN THE MORNING 90 tablet 1 Active verapamil SR (Calan SR) 180 MG ER tabletIndication s:Essential hypertension TAKE 2 TABLETS BY MOUTH EVERY DAY WITH FOOD 180 tablet 1 Active lisinopril 10 MG tabletIndication s:Benign essential hypertension Take 2 tablets (20 mg) by mouth Once per day. 60 tablet Active albuterol (Ventolin HFA) 108 (90 Base) MCG/ACT inhalerIndicatio ns:Mild persistent asthma with acute exacerbation Inhale 2 puffs Every 4-6 hours as needed for wheezing or shortness of breath. 18 g 3 024 Active Spacer/Aero-Hold ing Chambers (OptiChamber Trish) misc 1 each every 4 (four) hours if needed (asthma). 1 each 024 Active fluticasone (Flonase Allergy Relief) 50 MCG/ACT nasal sprayIndications :Acute non-recurrent sinusitis, unspecified location Administer 1 spray into each nostril Once per day. Shake gently. Before first use, prime pump. After use, clean tip and replace cap. 16 g 2 025 2025 Active metFORMIN (Glucophage) 500 MG tabletIndication s:Type 2 diabetes mellitus with hyperlipidemia (CMS/HCC) ([facility]) TAKE 1 TABLET BY MOUTH TWICE A DAY 180 tablet 1 025 Active FREESTYLE LITE test stripIndications :Type 2 diabetes mellitus with hyperlipidemia (CMS/HCC) ([facility]) Use to test blood sugar 3 times daily 100 each 12 025 2025 Active Lancets miscIndications: Type 2 diabetes mellitus with hyperlipidemia (CMS/HCC) ([facility]) Use to test blood sugar 3 times daily 100 each Active Alcohol Swabs 70 % padsIndications: Type 2 diabetes mellitus with hyperlipidemia (CMS/HCC) ([facility]) Use to test blood sugar 3 times daily 100 each 11 025 Active Blood Glucose Monitoring Suppl (FreeStyle [place] Lite) w/Device kitIndications:T ype 2 diabetes mellitus with hyperlipidemia (CMS/HCC) ([facility]) Use to test blood sugar 3 times daily 1 kit 025 Active loratadine (Claritin) 10 MG tabletIndication s:Non-seasonal allergic rhinitis due to other allergic trigger,Acute non-recurrent sinusitis, unspecified location Take 1 tablet (10 mg) by mouth Once per day. As needed 90 tablet 025 Active traZODone (Desyrel) 100 MG tabletIndication s:Insomnia, unspecified type TAKE 1 TO 2 TABLETS BY MOUTH AT BEDTIME NEEDED FOR SLEEP 180 tablet 1 025 Active rosuvastatin (Crestor) 5 MG tabletIndication s:Mixed hyperlipidemia Take 1 tablet (5 mg) by mouth at bedtime. 90 tablet 1 025 2025 Active diphenhydrAMINE (BENADryl) 25 MG tabletIndication s:Urticaria Take 1 tablet 25 mg every 6 hours as needed for itching. 40 tablet Active EPINEPHrine (Epipen) 0.3 MG/0.3ML injection syringeIndicatio ns:Food allergy INJECT INTRAMUSCULARLY DIRECTED ON PACKAGE AND GO TO EMERGENCY ROOM NEEDED FOR ANAPHYLAXIS, CALL 911 AFTER USE 2 each 1 Active empagliflozin (Jardiance) 10 MGIndications:Ty pe 2 diabetes mellitus with hyperlipidemia ([facility]) ([facility]) Take 1 tablet (10 mg) by mouth Once per day. 30 tablet 025 2024 Discontinued EPINEPHrine (Epipen) 0.3 MG/0.3ML injection syringeIndicatio ns:Food allergy Inject 0.3 mL (0.3 mg) as directed 1 (one) time if needed for anaphylaxis. Inject into upper leg. Call 911 after use. 2 each 1 025 2024 Discontinued fluconazole (Diflucan) 150 MG tabletIndication s:Yeast infection Take 1 tablet (150 mg) by mouth 1 (one) time for 1 dose. 1 tablet 1 025 2024 clindamycin (Cleocin) 2 % vaginal creamIndications :Bacterial vaginosis Insert 1 applicator into the vagina at bedtime for 7 days. 40 g 025 2024 Hospital, Clinic, or Other Facility Administered Medication Ordered Dose Route Frequency Start Date End Date Status Insulin Lispro solution 10 UnitsIndications:Newly diagnosed diabetes ([facility]) 10 Units IJ Once Daily 02/01/2024 Active Active Problems Problem Noted Date Diagnosed Date History of endometrial cancer 08/03/2024 Overview (08/03/2024): s/p total hysterectomy 2012 Acute non-recurrent sinusitis 07/18/2024 Assessment & Plan (07/18/2024 11:20 AM EST): -discontinue OTC nasal spray -Augmentin x 10 days -continue fluticasone nasal spray -start loratadine -salamatof on environmental triggers changes -advise may take [...] Plan: BG monitor to be purchased at [facility] (better cost d/t lack of current insurance). [...] Pulmonary hypertension 12/08/2022 Overview (08/15/2023): Follows w/ [facility] Cards BP meds: Verapamil 180mg ER 2 [...] Encounters Date Type Department Care Team Description 09/10/[address] [address] Chapo Dial ANP Food allergy 09/03/[address] [address] Chapo Dial ANP Error (VOID this visit) 09/03/[address] [address] Chapo Dial ANP Results 09/03/2024 Orders Only [facility] [address] [place] [address] Saji Rivera CNP Bacterial vaginosis (Primary Dx) 08/31/2024 3:15 PM EDT Office Visit [address] [address] Saji Rivera CNP UTI symptoms (Primary Dx); Urticaria; Yeast infection; Vaginal discharge 08/31/2024 Travel 08/31/[address] [address] Chapo Dial ANP Nurse Triage 08/21/[address] [address] Chapo Dial ANP Bouchra Recall 08/06/2024 Orders Only GENERIC EXTERNAL DATA DEPARTMENT Provider, Generic External Data 08/03/2024 11:15 AM EST Office Visit [address] [address] Chapo Dial ANP Non-seasonal allergic rhinitis due to other allergic trigger (Primary Dx); IgA nephropathy; Class 3 severe obesity with serious comorbidity and body mass index (BMI) of 40.0 to 44.9 in adult, unspecified obesity type ([facility]); Type 2 diabetes mellitus with hyperlipidemia ([facility]) ([facility]); Screening for malignant neoplasm of colon; History of endometrial cancer; Mixed hyperlipidemia; Food allergy; Acute non-recurrent sinusitis, unspecified location; Insomnia, unspecified type 08/03/2024 Travel 07/27/2024 Refill [facility] [address] [place] [address] Chapo Dial ANP Type 2 diabetes mellitus with hyperlipidemia ([facility]) ([facility]) 07/18/2024 11:00 AM EST Office Visit [facility] [address] [place] [address] Claudia Avina MD Acute non-recurrent sinusitis, unspecified location (Primary Dx) 07/18/2024 Travel 07/17/2024 Telephone [facility] [address] [place] [address] Chapo Dial ANP Nurse Triage from Last 3 Months Immunizations Name Administration [...] with others, in a hotel, in a assisted, living outside on the street, on a [...] t he electric, gas, oil or water [employer] threatened to shut off services in your [...] Sign Reading Time Taken Comments Blood Pressure 138/90 08/31/2024 3:17 PM EDT Pulse 76 08/31/2024 3:17 PM EDT Temperature 36.2 ??C (97.1 ??F) 08/31/2024 3:17 PM ED T Respiratory Rate 17 08/31/2024 3:17 PM EDT Oxygen Saturation 98% 08/31/2024 3:17 PM EDT Inhaled Oxygen Concentration - - Weight 119 kg (262 lb) 08/31/2024 3:17 PM EDT Height 165.1 cm (5' 5 ) 03/02/2024 1:52 PM EDT Body Mass Index 43.6 03/02/2024 1:52 PM EDT Plan of Treatment Upcoming Encounters Date Type Department Care Team (Late st Contact Info) Description 12/03/2024 11:15 AM EDT Office Visit [facility] [address] [place] [address] Chapo Dial ANP [address] [place] [address] Health Maintenance Due Date Last Done Comments HIV Screening 1980 Diabetes: Foot Exam 1990 Eye Exam 1990 Alcohol/Substance Use Screening 1992 Family Planning (PISQ) 1995 Hepatitis C Screening 1998 COVID-19 Vaccine ( season) 2024 11/04/2022, 11/28/2020, 10/31/2020 Lipid Panel 11/24/2024 11/25/2023, 11/09/2022 Diabetes: Hemoglobin A1C 11/30/2024 024, 02/13/2024, 02/01/2024, Additional history exists Depression Screening 03/02/2025 03/02/2024, 03/02/20 24 SDOH Screening 03/02/2025 03/02/2024 Mammogram 06/22/2025 06/22/2024, 08/2024, 06/22/2024, Additional history exists Diabetes: Urine Protein Screening 08/06/2025 08/06/2024, 07/29/2023, 09/09/2022 Tobacco Screening 09/14/2025 09/14/2024 Zoster Vaccines (1 of 2) 2030 DTaP/Tdap/Td [...] Procedure Name Priority Date/Time Associated Diagnosis Comments BACTERIAL VAGINOSIS PANEL Routine 08/31/2024 4:11 PM EDT Vaginal discharge POCT URINALYSIS DIPSTICK Routine 08/31/2024 3:29 PM EDT UTI symptoms URINALYSIS, COMPLETE, WITH REFLEX TO CULTURE Routine 08/31/2024 12:00 AM EDT UTI symptoms US RENAL BI Routine 08/14/2024 6:25 AM EST CREATININE, SERUM Routine 08/06/2024 11: 26 AM EST UREA NITROGEN (BUN) Routine 08/06/2024 1 1:26 AM EST ELECTROLYTE PANEL Routine 08/06/2024 11: 26 AM EST PROTEIN CREATININE RATIO, URINE Routine 08/06/2024 11:22 AM EST BI MAMMOGRAM SCREENING TOMOSYNTHESIS BILATERAL Routine 06/22/2024 2:30 PM EST POCT GLYCATED HEMOGLOBIN, TOTAL Routine 06/01/2024 11:57 AM EST Type 2 diabetes mellitus with hyperlipidemia (CMS/HCC) (CMS/HCC) LIPID PANEL, STANDARD Routine 11/25/2023 1:39 PM EDT HM PAP/HPV Routine 11/18/2015 from Last 3 Months or Most Recently Relevant to Health Maintenance Results * (ABNORMAL) Bacterial Vaginosis Panel (08/31/2024 4:11 PM EDT) TRICHOMONAS VAGINALIS DETECTION BY PCR NOT DETECTED Not Detect [facility] BACTERIAL VAGINOSIS DETECTION BY PCR POSITIVE(A) Negative [facility] Comment:The BV organism targ ets of the Xpert Xpress MVP test can becommensal in women; Xpert Xpress MVP positive results forbacterial vaginosis should be considered in conjunction withother clinical and patient information to determine thedisease status. Organisms that are not detected by the XpertXpress MVP test have also been reported to be associatedwith BV and aerobic vaginitis.The Xpert Xpress MVP test performance has not been evaluatedin patients under the age of 14. NESS GROUP DETECTION BY PCR NOT DETECTED Not Detect [facility] Ness glab krusei PCR NOT DETECTED Not Detect [facility] Swab Vaginal structure / Unknown 08/31/2024 4:11 PM EDT 08/31/2024 6:11 PM EDT [facility] MICROBIOLOGY - GENERA L ORDERABLES Final Result [facility] [address] [place] [phone] * (ABNORMAL) POCT Urinalysis (08/31/2024 3:29 PM EDT) Color, UA Light Yellow Clarity, UA Clear Glucose, UA Moderate Comment:250mg/dl Bilirubin, UA Negative Ketones, UA Negative Spec Grav, UA 1.010 Blood, UA Negative Negative, None Detected pH, UA 5.5 Protein, UA Trace Comment:300mg/dl Urobilinogen, UA 0.2 Leukocytes, UA Negative Negative, Rare, Trace Nitrite, UA Negative Negative, None Detected Appearance, UA Light Yellow QC Media Lot # [id number] Lot# Expiration Date [id number] Urine 08/31/2024 3:29 PM EDT [facility] POINT OF CARE TEST ENTER/ EDIT ORDERABLES Final Result * (ABNORMAL) Urinalysis, Complete, with Reflex to Culture (08/31/2024 12:00 AM EDT) Color Urine Yellow [facility] Appearance Urine Clear [facility] PH 5.5 5.0 - 9.0 [facility] Glucose Urine UA 250(A) Negative mg/dL [facility] Urine Blood Negative Negative [facility] Specific Sleepy Eye - Urine 1.010 1.005 - 1.025 [facility] Urine Protein 100 (2+)(A) Neg-Trace mg/dL [facility] Urine Ketones Negative Negative mg/dL [facility] Nitrite Urine Negative Negative [facility] Leukocyte Esterase Urine Negative Negative [facility] RBC Urine 0-2 0 - 2 /HPF [facility] Urine WBC 0-5 0 - 5 /HPF [facility] Urine Squamous Epithelial Cell 6-10 0 - 2 /HPF [facility] Urine Bacteria None Seen None Seen [facility] Hyaline Casts, Urine 0-2 0 - 2 /LPF [facility] Urine 08/31/2024 08/31/2024 Narrative [facility] - 08/31/2024 6:23 PM EDT Urine, Clean Catch [facility] LAB URINE ORDERABLES Mary gavin Result [facility] [address] [place] [address] [phone] * US RENAL BI (08/14/2024 6:25 AM EST) Anatomical Region Laterality Modality Abdomen Ultrasound 08/14/2024 6:25 AM EST Narrative 08/14/2024 6:26 AM EST ? [facility] ?[address] ?[place] [address] ? Ultrasound Report ? Signed with Addenda ? Patient: Caitlyn Hercules V ?MR#: ?? [id number] ? : 1980 ?Acct:[id number] ? Age/Sex: 44 / F ?ADM Date: 02/21/25 ? Loc: HO.US ? Attending Dr: Sylvia Juarez MD ? Ordering Physician: Sylvia Juarez MD ?? Date of Service: 08/10/24 ?? Procedure(s): US renal BI ?? Accession Number(s): [id number] ? cc: Sylvia Juarez MD; CHAPO DIAL [...] Mariana Fowler MD in OV> ? 08/14/24 0842 ?? Addendum Cosigned By: ? DD/ ? [...] by Mariana Fowler MD in OV> ? 02/25/25 0626 ? DD/ 4 ? TD/TT: 08/14/24624 ? Vocational School Teacher: ? Procedure Note Christophersneharadhikashahida, Image - 08/14/2024 [place] [address] Ultrasound Report Signed with Terence Patient: Caitlyn Hercules VMR#: [id number] : 1980Acct:[id number] Age/Sex: 44 / FADM Date: 08/10/24 Loc: HO.US Attending Dr: Sylvia Juarez MD Ordering Physician: Sylvia Juarez MD Date of Service: 08/10/24 Procedure(s): US renal BI Accession Number(s): [id number] cc: Sylvia Juarez MD; CHAPO DIAL NP [...] in OV> 08/14/24625 DD/ 4 TD/TT: 08/14/24624 Vocational School Teacher: us [facility] External Provider IMG US PROCEDURES Edited Result - Final * Creatinine, Serum (08/06/2024 11:26 AM EST) Creatinine, Serum 1.09 0.5 - 1.4 mg/dL [facility] Estimated Glomerular Filt Rate 55 [facility] Comment:Chronic Kidney Disea se: Estimated GFR < 60 mL/min/[id number] Kidney Disease: Estimated GFR < 15 mL/min/1.73m2 08/06/2024 11:2 6 AM EST 08/06/2024 11:26 AM EST us Generic External Data Provider LAB BLOOD ORDERAB LES Final Result Performing Organization Address [facility] Co de Phone Number [facility] [address] [place] [phone] * (ABNORMAL) BUN (Blood Urea Nitrogen) (08/06/2024 11:26 AM EST) Urea Nitrogen (BUN) 17(H) 9 - 16 mg/dL [facility] 08/06/2024 11:2 6 AM EST 08/06/2024 11:26 AM EST Generic External Data Provider LAB BLOOD ORDERAB LES Final Result Performing Organization Address [facility] Co de Phone Number [facility] [address] [place] [phone] * Electrolyte Panel (08/06/2024 11:26 AM EST) Sodium 140 135 - 145 mmol/L [facility] Potassium 4.1 3.3 - 5.1 mmol/L [facility] Chloride 106 96 - 108 mmol/L [facility] Carbon Dioxide 25 22 - 29 mmol/L [facility] Anion Gap 13 12 - 20 [facility] 08/06/2024 11:2 6 AM EST 08/06/2024 11:26 AM EST Generic External Data Provider LAB BLOOD ORDERAB LES Final Result Performing Organization Address [facility] Co de Phone Number [facility] [address] [place] [phone] * (ABNORMAL) Protein Creatinine Ratio, Urine (08/06/2024 11:22 AM EST) Creatinine, Urine 156.24 mg/dL [facility] Protein, Total, Random Urine 270(H) <12 mg/dL [facility] Protein/Creati nine Ratio, Ur 1.73(H) <0.2 [facility] Comment:The spot urine prote in:creatinine ratio may increase to 0.3during normal . 08/06/2024 11:2 2 AM EST 08/06/2024 11:30 AM EST us Generic External Data Provider LAB URINE ORDERAB LES Final Result Performing Organization Address City/State/[facility] Co de Phone Number [facility] [address] [place] [phone] * BI Mammogram Screening Tomosynthesis Bilateral (06/22/2024 2:30 PM EST) Anatomical Region Laterality Modality Breast Bilateral Mammography 06/22/2024 2:30 PM EST Narrative 07/01/2024 10:13 AM EST ? [facility] ? [address] ?[place] [address] ? Mammography Report ? Signed ? Patient: Diomedes,Caitlyn V ?MR#: ?? [id number] ? : 1980 ?Acct:[id number] ? Age/Sex: 44 / F ?ADM Date: /03/25 ? Loc: HO.MAMMO ? Attending Dr: Chapo Dial QUALITY CONTROL ASSESSOR ? Ordering Physician: JAYRO,CHAPO QUALITY CONTROL ASSESSOR ?Results: 2Benign Fin ?? dings ? Date of Service: 06/22/25 ?Follow Up: 1 Year From Orig ?? inal Mammogram ? Procedure(s): MM tomosynthesis screening BI ?? Accession Number(s): [id number] ? cc: JAYRO,CHAPO QUALITY CONTROL ASSESSOR ? EXAMINATION: ?? MM SCREENING DIGITAL BREAST [...] ??Amy Nino DO ??07/01/2024 10:10 AM EST ? Dictated By: ?Amy Nino DO ? Signed By: ?<Electronically signed by Amy Nino, DO in OV> ? 07/01/24 1010 ? DD/ 1430 ? TD/TT: 06/22/24 1457 ? Vocational School Teacher: ? Procedure Note Nohemy Miller - 07/01/2024 [facility] [address] [place] [address] [place] [address] Mammography Report Signed Patient: Valdo ValverdeGinnyCaitlyn R#: [id number] : 1980Acct:[id number] Age/Sex: 44 / FADM Date: 06/22/24 Loc: HO.MAMMO Attending Dr: Chapo Dial QUALITY CONTROL ASSESSOR Ordering Physician: CHAPO DIAL NPResults: 2Beniabelardo ricardo Date of Service: 06/22/24Follow Up: 1 Year From Orig inal Mammogram Procedure(s): MM tomosynthesis screening BI Accession Number(s): [id number] cc: CHAPO DIAL NP EXAMINATION: MM SCREENING [...] 07/01/24 1010 DD/ 1430 TD/TT: 06/22/24 1457 Vocational School Teacher: us Chapo Dial ANP IMG BI PROCEDURES Final Result * (ABNORMAL) POCT HGB A1C (06/01/2024 11:57 AM EST) Hemoglobin A1C 6.6(A) 4.0 - 6.0 % QC Media Lot # [id number] Lot# Expiration Date [id number] Blood 06/01/2024 11:5 7 AM EST us Chapo Dial ANP POINT OF CARE TEST ENTER/EDIT OR DERABLES Final Result * (ABNORMAL) Lipid Panel, Standard (11/25/2023 1:39 PM EDT) Triglycerides 155(H) <150 mg/dL [facility] Comment:Desirable Triglyceri de: less than 150 mg/dLBorderline High Triglyceride 150-199 mg/dLHigh Triglyceride: 200-499 mg/dLVery High Triglyceride: greater than or equal to 5OO mg/dL Cholesterol 205(H) <200 mg/dL [facility] Comment:Desirable Cholestero l: less than 200 mg/dLBorderline High Cholesterol: 200-239 mg/dLHigh Cholesterol: greater than 239 mg/dL LDL Cholesterol Calculated 119(H) <100 mg/dL [facility] Comment:Desirable LDL: less than 100 mg/dLNear Optimal/Above Optimal LDL: 110- 129 mg/dLBorderline High LDL: 130-159 mg/dLHigh LDL: 160-189 mg/dLVery High LDL: greater than or equal to 190 mg/dL HDL Cholesterol 55 >40 mg/dL [facility] Comment:Desirable HDL: great er than 40 mg/dL Note: This HDL assay may give artificially low results in patients with liver disease. 11/25/2023 1:39 PM EDT 11/25/2023 1:39 PM EDT Generic External Data Provider LAB BLOOD ORDERAB LES Final Result [facility] [address] [place] [phone] * Hm Pap Smear (11/18/2015) Pap Negative for intraephithelial lesion or malignancy Negative for intraephithelial lesion or malignancy, Other HPV Undetected 11/18/2015 Historical Provider MD HEALTH MAINTENANCE Final Result from Last 3 Months or Most Recently Relevant to Health Maintenance Insurance N PARTIAL Care Teams Electro Mechanical Technician Relationship Specialty Start Date End Date Chapo Dial ANP [address] [place] [phone] PCP - General Family Medicine 07/30/20
--- OUTSIDE RECORDS SUMMARY | 2024-09-28 10:09 | XMS_ITS | Encounter Summary ---
Author Organization [employer] Address [address] [facility] [address] [place] [address] Care Team Providers Care Health And Wellness Manager Name Role Phone Niki Allen Primary Care Provider [phone] Reason for Visit * Reason Comments Med Refill Encounter Details Date Type Department Care Team ([facility] st Contact Info) Description 08/16/2023 Refill [facility] [address] [place], [place] [phone] Niki Allen ANP [address] [place], [place] [phone] Mixed hyperlipidemia; Non-seasonal allergic rhinitis due to [...] Description 12/03/2024 11:15 AM EDT Office Visit [facility] [address] [place] [address] Niki Allen ANP [address] [place] [address] documented as of this encounter Visit Diagnoses Diagnosis Mixed hyperlipidemia Non-seasonal allergic rhinitis due to other allergic trigger documented in this encounter Care Teams Health And Wellness Manager Relationship Specialty Start Date End Date Niki Allen ANP [address] [place] [phone] PCP - General Family Medicine 07/30/20 documented as of this encounter
--- OUTSIDE RECORDS SUMMARY | 2024-09-28 10:09 | XMS_ITS | Encounter Summary ---
Author Organization [employer] [facility] Address [address] [place] [address] [address] [place] [address] Care Team Providers Care Field Account Manager Name Role Phone Niki Allen Primary Care Provider [phone] Encounter Details Date Type Department Care Team (Late st Contact Info) Description 07/12/2022 Orders Only [facility] MEDICINE [address] [place] [phone] Soraida Segundo LPN Social History Tobacco Use [...] Description 12/03/2024 11:15 AM EDT Office Visit [facility] MEDICINE [address] [place] [address] [phone] Niki Allen ANP [address] [place] [phone] documented as of this encounter Procedures Procedure [...] (04/18/2023 7:37 PM EDT) Color Urine Yellow [facility] Appearance Urine Cloudy [facility] PH 6.5 5.0 - 9.0 [facility] Glucose Urine UA Negative Negative mg/dL [facility] Urine Blood Negative Negative [facility] Specific [place] - Urine 1.020 1.005 - 1.025 [facility] Urine Protein 300 (3+)(A) Neg-Trace mg/dL [facility] Urine Ketones Negative Negative mg/dL [facility] Nitrite Urine Negative Negative [facility] Leukocyte Esterase Urine Negative Negative [facility] RBC Urine 0-2 0 - 2 /HPF [facility] Urine WBC 0-5 0 - 5 /HPF [facility] Urine Squamous Epithelial Cell 11-20 0 - 2 /HPF [facility] Urine Bacteria 2+ None Seen [facility] Hyaline Casts, Urine 3-5 0 - 2 /LPF [facility] 04/18/2023 7:37 PM EDT 04/18/2023 7:40 PM EDT Narrative [facility] - 04/18/2023 7:50 PM EDT [id number], Clean Catch us [facility] External Provider LAB URI NE ORDERABLES Final Result [facility] [address] [place] [phone] * Sed Rate by Modified Westergren (04/18/2023 2:12 PM EDT) Pathologist [facility] Erythrocyte Sedimentation Rate 17 0 - 20 MM/HR [facility] Comment:Patients with polycy themia and many hemoglobin abnormalitiesmay have depressed sed rates whereas patients with anemiamay have elevated sed rates. 04/18/2023 2:12 PM EDT 04/18/2023 5:23 PM EDT [facility] External Provider LAB BLO OD ORDERABLES Final Result Performing Organization Address [facility] Co de Phone Number [facility] [address] [place] [phone] * TSH (04/18/2023 2:12 PM EDT) [facility] Thyroid Stimulating Hormone 0.65 0.32 - 4.0 uIU/mL [facility] Comment:TSH 3rd Generation ( [facility]) 04/18/2023 2:12 PM EDT 04/18/2023 2:16 PM EDT Generic External Data Provider LAB BLOOD ORDERAB LES Final Result Performing Organization Address [facility] Co de Phone Number [facility] [address] [place] [phone] * (ABNORMAL) Basic Metabolic Panel (04/18/2023 2:12 PM EDT) Pathologist [facility] Sodium 141 135 - 145 mmol/L [facility] Potassium 3.9 3.3 - 5.1 mmol/L [facility] Chloride 102 96 - 108 mmol/L [facility] Carbon Dioxide 28 22 - 29 mmol/L [facility] Anion Gap 15 12 - 20 [facility] Urea Nitrogen (BUN) 12 9 - 16 mg/dL [facility] Creatinine, Serum 1.23 0.5 - 1.4 mg/dL [facility] Creatinine Clr Calc Pharmacy 77.2 [facility] Comment:Provided height and weight: 165.1 cm,119.748 kg.eGFR (calculated from the MDRD study equation) and eCrCl(calculated from the Cockcroft-Gault equation) are based ondifferent parameters and may not yield comparable results.If eCrCl result is absurd, please check patient'sheight/weight. Estimated Glomerular Filt Rate 48 [facility] Comment:NOTE: For -Am erican individuals, multiply the result by 1.210.Chronic Kidney Disease: Estimated GFR < 60 mL/min/1.02q4Anosll Kidney Disease: Estimated GFR < 15 mL/min/1.73m2 Glucose 144(H) 60 - 115 mg/dL [facility] Calcium 9.3 8.4 - 10.2 mg/dL [facility] 04/18/2023 2:12 PM EDT 04/18/2023 2:16 PM EDT us Generic External Data Provider LAB BLOOD ORDERAB LES Final Result [facility] [address] [place] [phone] * (ABNORMAL) Hepatic Function Panel (04/18/2023 2:12 PM EDT) Bilirubin, Total 0.4 0.0 - 1.0 mg/dL [facility] Bilirubin, Direct 0.1 0.0 - 0.5 mg/dL [facility] Aspartate Amino Transferase 20 5 - 31 U/L [facility] Alanine Aminotransferase 19 0 - 31 U/L [facility] Total Protein 8.1(H) 6.5 - 8.0 g/dL [facility] Albumin Level 3.9 3.5 - 5.0 g/dL [facility] Alkaline Phosphatase 78 39 - 117 U/L [facility] 04/18/2023 2:12 PM EDT 04/18/2023 2:16 PM EDT us [facility] External Provider LAB BLO OD ORDERABLES Final Result [facility] [address] [place] [phone] [phone] * (ABNORMAL) CBC auto differential (04/18/2023 2:12 PM EDT) White Blood Count 10.5 4.8 - 10.8 X10*3/uL [facility] Red Blood Count 4.97 4.20 - 5.50 X10*6/uL [facility] Hemoglobin 13.3 12.0 - 16.0 g/dl [facility] Hematocrit 42.1 37.0 - 47.0 % [facility] Mean Corpuscular Volume 84.7 80.0 - 98.0 fL [facility] Mean Corpuscular Hemoglobin 26.8(L) 27.0 - 33.0 pg [facility] Mean Corpuscular HGB Conc 31.6 31.0 - 35.0 g/dl [facility] Red Cell Distribution Width 17.0(H) 11.0 - 16.0 % [facility] Platelet Count 298 160 - 400 X10*3/uL [facility] Mean Platelet Volume 10.9 9.4 - 12.3 fL [facility] Neutrophils Percent Auto 61.6 45 - 73 % [facility] Imm Gran Pct Auto 0.2 0.0 - 0.4 % [facility] Lymphocytes Percent Auto 28.1 20 - 40 % [facility] Monocytes Percent Auto 8.0 2 - 11 % [facility] Eosinophils Percent Auto 1.2 0 - 4 % [facility] Basophils Percent Auto 0.9 0 - 2 % [facility] NRBC Pct Auto 0.0 0.0 - 0.2 /100WBC [facility] Neutrophils Absolute Auto 6.4 2.0 - 8.3 x10*3/uL [facility] Imm Gran Abs Auto 0.02 0.00 - 0.03 X10*3/uL [facility] Lymphocytes Absolute Auto 2.9 1.2 - 4.9 X10*3/uL [facility] Monocytes Absolute Auto 0.8 0.1 - 1.2 X10*3/uL [facility] Eosinophils Absolute Auto 0.1 0.0 - 0.4 X10*3/uL [facility] Basophils Absolute Auto 0.1 0.0 - 0.2 X10*3/uL [facility] NRBC Abs Auto 0.000 0.0 - 0.012 X10*3/uL [facility] 04/18/2023 2:12 PM EDT 04/18/2023 2:16 PM EDT [facility] External Provider LAB BLO OD ORDERABLES Final Result Performing Organization Address [facility] Co de Phone Number [facility] [address] [place] [phone] * (ABNORMAL) Protein Creatinine Ratio, Urine (09/09/2022 10:57 AM EDT) Creatinine, Urine 49.94 mg/dL [facility] Protein, Total, Random Urine 240(H) <12 mg/dL [facility] Protein/Creati nine Ratio, Ur 4.81(H) <0.2 [facility] Comment:The spot urine prote in:creatinine ratio may increase to 0.3during normal . 09/09/2022 10:5 7 AM EDT 09/09/2022 12:07 PM EDT [facility] External Provider LAB URI NE ORDERABLES Final Result Performing Organization Address [facility] Co de Phone Number [facility] [address] [place] [phone] documented in this encounter Visit Diagnoses Not on filedocumented in this encounter Care Teams Field Account Manager Relationship Specialty Start Date End Date Niki Allen ANP [address] [place] [address] [place] [address] PCP - General Family Medicine 07/30/20 documented as of this encounter
--- NOTE | 2024-09-28 10:39 | A.OFFVIS_ITS ---
Intake Visit Reasons: 1yr/US Intake Note: Patient presents to office today for a 1 year follow up/US Urology Medication: None Antibiotic Allergies: none Blood Thinners:None Relocation Services Specialist Required: No Accompanied by: Self / Same As Patient Allergies pork derived (porcine) [Pork derived (porcine)] Allergy (Intermediate, Verified 09/28/24 10:40) HIVES/STOMACH PAIN/THROAT CLOSES ibuprofen [From Motrin] Allergy (Mild, Verified 09/28/24 10:40) GI UPSET aspirin Allergy (Unknown, Verified 09/28/24 10:40) Unknown red dye Allergy (Verified 09/28/24 10:40) Unknown Motrin Allergy (Unknown, Uncoded 08/20/24 15:12) Unknown pork Allergy (Unknown, Uncoded 08/20/24 15:12) Unknown HPI Comments Details: 09/28/24--Caitlyn is a 42-year-old female who presents for follow up. She has history of renal cell carcinoma, status post partial nephrectomy left kidney in 2010. History of Present Illness The patient is a 44-year-old female presenting for follow-up on her renal lesion and management of diabetes. She has a history of left renal lesion that was treated with ablation, and her recent renal ultrasound shows stability of the condition. Continuation of monitoring is planned, with a CT scan scheduled in six months. The patient is also managing her diabetes, a condition diagnosed in connection with her renal health, but currently does not report any new symptoms or changes. Urinary Symptoms Review - No urinary symptoms or incontinence discussed during the visit. - Absence of reported urinary pain or pressure. Results - Tests: Renal ultrasound indicates stable condition of the treated left renal lesion. Discussion Notes Discussion focused on the current stability of the left renal lesion as confirmed by ultrasound results, and the ongoing management plan for her diabetes. The follow-up plan includes a scheduled CT abdomen renal mass protocol in six months. There was no discussion around the need for changes in current ma nagement or any urgent interventions required at this time. Plan The patient will continue with current management for diabetes mellitus, alongside an ongoing monitoring plan for her left renal lesion, especially given its stability as confirmed by ultrasound. A follow-up CT abdomen renal mass protocol is scheduled for six months to ensure continued stability. Current treatment regimens and associated lifestyle modifications are emphasized, with no new interventions at this time. Patient Instructions - Continue current treatment for diabetes mellitus and follow lifestyle recommendations. - Attend the scheduled CT abdomen renal mass protocol in six months. - Monitor for any new symptoms or changes in health, and report promptly. - Maintain regular check-ups and follow medical guidance for diabetes management. Patient was informed and verbally consented to the use of an ambient scribe for clinic note documentation during this visit. 09/08/23--Caitlyn is a 42-year-old female who presents for telehealth visit for follow up. She has history of renal cell carcinoma, status post partial nephrectomy left kidney in 2010. She was evaluated on 05/11/2023 and at that time I reviewed CT scan imaging done in 2020 which was suspicious for a left lower pole lesion. MRI was ordered. I have reviewed results with her. The MRI of the abdomen was performed 08/15/2023 and notes that the area in question is consistent with necrosis or scarring from prior surgery on the kidney there is no enhancement. Plan discussed will be to continue to monitor kidneys. Follow-up in 1 year with renal ultrasound prior. 05/11/2023? She has a history of IGA nephropathy and she is followed by nephrology. Patient has a past medical history of left kidney partial nephrectomy in 2010 for cancer of the left kidney. She has had a CAT scan done in 2020 which was without IV contrast and revealed a 3 cm left lower pole lesion. Patient denies any other urinary tract symtpoms other that this at this time. I have discussed with the patient about further evaluation with an MRI with and without IV contrast. [facility] Medical History IgA nephropathy Cancer of left kidney Migraine headache Asthma Hypertension Myocardial infarction IgA nephropathy Surgical History Morbid obesity H/O partial nephrectomy H/O right knee surgery H/O: hysterectomy Family History Mother IgA nephropathy Breast cancer Cancer of kidney CVA (cerebral vascular accident) Maternal Uncle Tongue cancer Social History Household Members: Family Housing: House Do you presently have visiting nurse or other home services: No Alcohol intake: never Comment: sleeping Cigarette Packs Per Day: 1 Cigarettes Per Day: 20.0 service: No Current occupational status: employed Results AMB Urinalysis, Automated UA Leukoctes 0 Shelly/uL Last Edit by Kirti Dye on 09/28/24 14:21 UA Nitrite Negative Last Edit by Kirti Dye on 09/28/24 14:21 UA Urobilinogen 0.2 mg/dL Last Edit by Kirti Dye on 09/28/24 14:21 UA Protein 300 mg/dL Last Edit by Kirti Dye on 09/28/24 14:21 UA pH 5.5 Last Edit by Kirti Dye on 09/28/24 14:21 UA Blood 0 Narciso/uL Last Edit by Kirti Dye on 09/28/24 14:21 UA Specific [place] 1.030 Last Edit by Kirti Dye on 09/28/24 14:21 UA Ketone Positive Last Edit by Kirti Dye on 09/28/24 14:21 UA Bilirubin 1 mg/dL Last Edit by Kirti Dye on 09/28/24 14:21 UA Glucose 0 mg/dL Last Edit by Kirti Dye on 09/28/24 14:21 Results Reviewed Results Reviewed: Date of Service: 08/10/24 Procedure(s): US renal BI Accession Number(s): [id number] cc: Sylvia Juarez MD; CH[facility]O [facility]IAL NP~ ADDENDUMThis document has been electronically signed by: Mariana Fowler on 08/14/2024 06:25:02 ADDENDUM: Patient has history of prior renal mass treatment. Evaluation for post ablation changes is limited on an ultrasound exam. Recommend dedicated CT renal mass protocol for further evaluation. This document has been electronically signed by: Mariana Fowler on 08/14/2024 08:41:07 Addendum Dictated By: Mariana Fowler MD Addendum Signed By: <Electronically signed by Mariana Fowler MD in OV> 08/14/24841 Addendum Cosigned By: DD/ TD/TT: 08/14/24 CLINICAL HISTORY: Z85.528 - Personal history of other malignant neoplasm of kidney US Renal Comparison: None Findings: The right kidney is normal in size, measuring 12.0 cm in length. The left kidney is mildly enlarged in size, measuring 13.2 cm in length. Cortical echogenicity is within normal limits. 3.3 cm complex cystic left lower renal mass is seen with wall thickening. There is no hydronephrosis. IMPRESSION: 1. 3.3 cm complex cystic left lower renal mass with wall thickening. Recommend CT or MRI renal mass protocol for further evaluation. 2. Normal sonographic appearance of the right kidney. Date of Service: 08/15/23 EXAMINATION: MR ABDOMEN WITHOUT AND WITH CONTRAST CLINICAL INFORMATION: History of left partial nephrectomy for cancer. COMPARISON: Abdomen CT from 01/12/2019 and 07/29/2020. TECHNIQUE: MR abdomen was performed without and with use of 10 mL intravenous Gadavist gadolinium contrast. Postcontrast images are performed in multiphase dynamic sequences on a high-field magnet. Imaging was performed in 3 planes. FINDINGS: LOCALIZER IMAGES: Large body habitus. LUNG BASES: No pulmonary consolidation or pleural effusion. LIVER: Chronic hepatomegaly with right hepatic lobe measuring approximately 23 cm in craniocaudal dimension. There appears to be mild hepatic steatosis on the opposed phase gradient echo imaging with estimated fat fraction of the liver of approximately 5 - 6%. No focal liver lesion. GALLBLADDER AND BILIARY TREE: Gallbladder is physiologically distended and has normal wall thickness. No evidence of cholelithiasis or wall thickening. No dilated bile ducts. PANCREAS: No edema, pancreatic ductal dilatation or mass. SPLEEN: Normal. ADRENAL GLANDS: Normal. KIDNEYS: Kidneys are normal in size. No hydronephrosis. There are a few very small subcentimeter sized simple cysts of the right kidney for which no imaging follow-up is recommended. A small somewhat linear nonenhancing T2 hyperintense focus is present within the anterior cortex of the [id number] pole of left kidney (images 26-27, series 7). This is suspected represent chronic focal fibrosis. A small nonenhancing focus was seen in this same region on postcontrast CT images from 01/12/2019. Also, there is T2 hypointense signal and lack of internal enhancement of a masslike focus at the lateral left lower pole. This measures 3.2 cm craniocaudal and is unchanged in size and morphology compared to 01/12/2019. There is thin rim-like enhancement around this stable focus. The T2 hypointense signal and lack of enhancement suggests old post treatment necrosis and fibrosis. A small are of cystic signal change, 0.8 cm craniocaudal dimension, is present at the posterior left lower pole and this has a simple appearance. There is no evidence of any solid contrast enhancing renal mass. The visualized proximal ureters are normal. BOWEL AND PERITONEUM: Stomach is unremarkable. No dilated loops of bowel. No bowel wall thickening or mesenteric fat stranding. No abdominal free fluid. VASCULATURE: Unremarkable. LYMPH NODES: No pathologic sized lymph nodes in the abdomen. SKELETAL: Hemangioma of the T12 vertebral body. IMPRESSION: * Mild hepatic steatosis and hepatomegaly. * A nonenhancing T2 hypointense masslike focus at the lateral left lower pole likely represents old posttreatment necrosis and fibrosis from partial nephrectomy (or old ablation treatment for carcinoma). This masslike area is unchanged in size and morphology compared to the CT exams from 12/13/2018 and 07/29/2020. There is no evidence of any solid contrast enhancing renal mass. No lymphadenopathy. Coding
== END 2024-09-28 11:29 | disposition home or self-care (01) ==
LOC: HO.HUSH 09:39
PROVIDERS: PCP Nurse Practitioner Primary Care; Visit Provider Urology
DX: Z13.9 Encounter for screening, unspecified (principal)

== ENCOUNTER → 2024-09-28 09:38 | Outpatient (BNVA) | payer OTHER, SELFPAY | PROVIDERS: PCP Nurse Practitioner Primary Care; Visit Provider Urology | DX: N02.8 Recurrent and persistent hematuria with other morphologic changes (principal); Z85.528 Personal history of other malignant neoplasm of kidney | CPT/HCPCS: 81003 ==

== ENCOUNTER 2024-11-02 12:18 | Outpatient (REF) | payer OTHER, SELFPAY ==
--- NOTE | ~2024-11-02 | XR_ITS ---
EXAMINATION: XR KNEE 3 VIEWS RIGHT HISTORY: M25.569 - Pain in unspecified knee COMPARISON: Comparison is made with the prior examination dated 05/31/2023. FINDINGS: Standing AP views of both knees and additional lateral and sunrise patellar views of the right knee are submitted. Osseous mineralization is normal. There is no fracture or dislocation. Again seen is severe osteoarthritis of the medial compartment with joint space narrowing and osteophyte formation. Milder changes are noted involving the lateral and patellofemoral compartments. There is severe narrowing of the medial compartment of the left knee. The soft tissues are unremarkable. There is no joint effusion. XR/XR knee RT 3V IMPRESSION: Osteoarthritis of the right knee as described. Electronically signed by: Dru Rowan MD 11/02/2024 01:33 PM EDT
--- OUTSIDE RECORDS SUMMARY | 2024-11-02 12:21 | XMS_ITS | Encounter Summary ---
Author Organization [employer] Address [address] [place] [address] Care Team Providers Care Consulting Sales Manager Name Role Phone Niki Allen Primary Care Provider [phone] Reason for Visit * Reason Onset Date Comments Call Back Request 04/18/2023 Encounter Details Date Type Department Care Team ([facility] st Contact Info) Description 04/18/2023 Telephone [facility] MEDICINE [address], [place] [phone] Niki Allen ANP [address] [place], [place] [phone] Call Back Request Social History Tobacco Use [...] notes were fax over same day 04/17/2023, Regulatory Intern transferred over to HIM to verify if notes were received. Please contact Yamila at [phone] documented in this encounter Plan of Treatment Upcoming Encounters Date Type Department Care Team (Late st Contact Info) Description 12/03/2024 11:15 AM EDT Office Visit [facility] MEDICINE [address] [place] [address] Niki Allen ANP [address] [place] [phone] documented as of this encounter Visit Diagnoses Not on filedocumented in this encounter Care Teams Consulting Sales Manager Relationship Specialty Start Date End Date Niki Allen ANP [address] [place] [phone] PCP - General Family Medicine 07/30/20 documented as of this encounter
--- OUTSIDE RECORDS SUMMARY | 2024-11-02 12:21 | XMS_ITS | Clinical Summary ---
Author Organization [employer] Address [address] [place] [address] Care Team Providers Care Slubber Machine Operator Name Role Phone Chapo Dial ANTONI Primary Care Provider [phone] Allergies Active Allergy Reactions Criticality Noted Date [...] 1 kit in the morning. 1 kit 12/11/19 23 Active cloNIDine (Catapres) 0.1 MG tablet Take 0.1 mg by mouth 2 times daily. 11/01/19 23 Active Advair Diskus 250-50 MCG/ACT aerosol powder Inhale 1 puff 2 times daily. 11/23/19 23 Active nitroglycerin (Nitrostat) 0.4 MG SL tablet TAKE 1 TABLET BY SUBLINGUAL ROUTE NEEDED FOR CHEST PAIN. IF NO RELIEF, GO TO ER 08/16/19 23 Active sertraline (Zoloft) 100 MG tablet Take 100 mg by mouth in the morning. 11/01/19 23 Active omega-3 (Fish Oil) 1000 MG capsule Take 1,000 mg by mouth. 07/29/19 16 Active hydrALAZINE (Apresoline) 50 MG tablet Take 1 tablet by mouth 2 times daily. 06/08/20 22 Active hydrOXYzine pamoate (Vistaril) 50 MG capsule Take 1 capsule by mouth if needed in the morning, at noon, and at bedtime for anxiety or sleep. 11/01/19 23 Active Melatonin Maximum Strength 5 MG tablet TAKE 1 TO 2 TABLETS BY MOUTH AT BEDTIME NEEDED 11/01/19 23 Active spironolactone (Aldactone) 25 MG tablet Take 0.5 tablets by mouth 1 (one) time each day. Active nicotine polacrilex (Nicorette) 2 MG gumIndications:Co ntinuous dependence on cigarette smoking CHEW 1 EACH (2 MG) IF NEEDED FOR SMOKING CESSATION. 110 each 2 08/26/19 24 Active triamcinolone (Kenalog) 0.1 % creamIndications: Rash APPLY TOPICALLY 2 TIMES DAILY FOR UP TO 28 DAYS 30 g 1 08/26/19 24 Active insulin glargine (Lantus SoloStar) 100 UNIT/ML penIndications:Ne wly diagnosed diabetes ([facility]) Inject 10 Units under the skin at bedtime. 3 mL 2 02/01/20 24 025 Active pen needle 32G x 4 mm misc Use to inject Lantus once per day 100 each 12 02/01/20 24 Active pantoprazole (ProtoNix) 40 MG EC tabletIndications :Heartburn TAKE 1 TABLET BY MOUTH EVERY DAY IN THE MORNING 90 tablet 1 05/21/20 24 Active verapamil SR (Calan SR) 180 MG ER tabletIndications :Essential hypertension TAKE 2 TABLETS BY MOUTH EVERY DAY WITH FOOD 180 tablet 1 05/21/20 24 Active lisinopril 10 MG tabletIndications :Benign essential hypertension Take 2 tablets (20 mg) by mouth Once per day. 60 tablet 06/01/20 24 Active albuterol (Ventolin HFA) 108 (90 Base) MCG/ACT inhalerIndication s:Mild persistent asthma with acute exacerbation Inhale 2 puffs Every 4-6 hours as needed for wheezing or shortness of breath. 18 g 3 06/19/20 24 Active Spacer/Aero-Holdi ng Chambers (OptiChamber Trish) misc 1 each every 4 (four) hours if needed (asthma). 1 each 06/19/20 24 Active fluticasone (Flonase Allergy Relief) 50 MCG/ACT nasal sprayIndications: Acute non-recurrent sinusitis, unspecified location Administer 1 spray into each nostril Once per day. Shake gently. Before first use, prime pump. After use, clean tip and replace cap. 16 g 2 07/18/19 25 026 Active metFORMIN (Glucophage) 500 MG tabletIndications :Type 2 diabetes mellitus with hyperlipidemia (CMS/HCC) ([facility]) TAKE 1 TABLET BY MOUTH TWICE A DAY 180 tablet 1 07/30/19 25 Active FREESTYLE LITE test stripIndications: Type 2 diabetes mellitus with hyperlipidemia (CMS/HCC) ([facility]) Use to test blood sugar 3 times daily 100 each 12 08/03/19 25 Active Lancets miscIndications:T ype 2 diabetes mellitus with hyperlipidemia (CMS/HCC) ([facility]) Use to test blood sugar 3 times daily 100 each 08/03/19 25 Active Alcohol Swabs 70 % padsIndications:T ype 2 diabetes mellitus with hyperlipidemia (CMS/HCC) ([facility]) Use to test blood sugar 3 times daily 100 each 11 08/03/19 25 Active Blood Glucose Monitoring Suppl (FreeStyle [place] Lite) w/Device kitIndications:Ty pe 2 diabetes mellitus with hyperlipidemia (CMS/HCC) ([facility]) Use to test blood sugar 3 times daily 1 kit 08/03/19 25 Active loratadine (Claritin) 10 MG tabletIndications :Non-seasonal allergic rhinitis due to other allergic trigger,Acute non-recurrent sinusitis, unspecified location Take 1 tablet (10 mg) by mouth Once per day. As needed 90 tablet 08/03/19 25 Active traZODone (Desyrel) 100 MG tabletIndications :Insomnia, unspecified type TAKE 1 TO 2 TABLETS BY MOUTH AT BEDTIME NEEDED FOR SLEEP 180 tablet 1 08/03/19 25 Active rosuvastatin (Crestor) 5 MG tabletIndications :Mixed hyperlipidemia Take 1 tablet (5 mg) by mouth at bedtime. 90 tablet 1 08/03/19 25 026 Active diphenhydrAMINE (BENADryl) 25 MG tabletIndications :Urticaria Take 1 tablet 25 mg every 6 hours as needed for itching. 40 tablet 09/01/19 Active EPINEPHrine (Epipen) 0.3 MG/0.3ML injection syringeIndication s:Food allergy INJECT INTRAMUSCULARLY DIRECTED ON PACKAGE AND GO TO EMERGENCY ROOM NEEDED FOR ANAPHYLAXIS, CALL 911 AFTER USE 2 each 1 09/12/19 Active Hospital, Clinic, or Other Facility Administered Medication Ordered Dose Route Frequency Start Date End Date Status Insulin Lispro solution 10 UnitsIndications:Newly diagnosed diabetes ([facility]) 10 Units IJ Once Daily 02/01/2024 Active Active Problems Problem Noted Date Diagnosed Date History of endometrial cancer 08/03/2024 Overview (08/03/2024): s/p total hysterectomy 2012 Acute non-recurrent sinusitis 07/18/2024 Assessment & Plan (07/18/2024 11:20 AM EST): -discontinue OTC nasal spray -Augmentin x 10 days -continue fluticasone nasal spray -start loratadine -[place] on environmental triggers changes -advise may take [...] monitor to be purchased at [facility] (better cost d/t lack of current [...] Pulmonary hypertension 12/08/2022 Overview (08/15/2023): Follows w/ [facility] Cards BP meds: Verapamil 180mg ER 2 [...] Type Department Care Team Description 09/10/2024 Refill [facility] MEDICINE [address] [place] [address] Chapo Dial ANP Food allergy 09/03/2024 Telephone [facility] MEDICINE [address] [place] [address] Chapo Dial ANP Error (VOID this visit) 09/03/2024 Telephone [facility] MEDICINE [address] [place] [phone] Chapo Dial ANP Results 09/03/2024 Orders Only [facility] PEDS [address] [place] [address] Saji Rivera CNP Bacterial vaginosis (Primary Dx) 08/31/2024 3:15 PM EDT Office Visit [facility] MED[facility]INE [address] [place] [phone] Saji Rivera CNP UTI symptoms (Primary Dx); Urticaria; Yeast infection; Vaginal discharge 08/31/2024 Travel 08/31/[address] [address] Chapo Dial ANP Nurse Triage 08/21/[address] [address] Chapo Dial ANP Bouchra Recall 08/06/2024 Orders Only GENERIC EXTERNAL DATA DEPARTMENT Provider, Generic External Data from Last 3 Months Immunizations Immunization Administration Dates Next Due Hep B, Adolescent [...] with others, in a hotel, in a senior living, living outside on the street, on a [...] Office Visit [facility] MED[facility]INE [address] [place] [address] Chapo Dial, ANP [address] [place] [address] Health Maintenance Due Date Last Done Comments [...] DETECTION BY PCR NOT DETECTED Not Detect [facility] BACTERIAL VAGINOSIS DETECTION BY PCR POSITIVE(A) Negative [facility] Comment:The BV organism targ ets [...] DETECTION BY PCR NOT DETECTED Not Detect [facility] Ness glab krusei PCR NOT DETECTED Not Detect [facility] Swab Vaginal structure / Unknown 08/31/2024 4:11 PM EDT 08/31/2024 6:11 PM EDT [facility] LAB MICROBIOLOGY - GENERA L ORDERABLES Final Result [facility] [address] [place] [phone] * (ABNORMAL) POCT Urinalysis (08/31/2024 3:29 [...] Media Lot # [id number] Lot# Expiration Date [id number] Urine 08/31/2024 3:29 PM EDT [facility] POINT OF CARE TEST ENTER/ EDIT ORDERABLES Final Result * (ABNORMAL) Urinalysis, Complete, with Reflex to Culture (08/31/2024 12:00 AM EDT) Color Urine Yellow [facility] Appearance Urine Clear [facility] PH 5.5 5.0 - 9.0 [facility] Glucose Urine UA 250(A) Negative mg/dL [facility] Urine Blood Negative Negative [facility] Specific [place] - Urine 1.010 1.005 - 1.025 [facility] Urine Protein 100 (2+)(A) Neg-Trace mg/dL [facility] Urine Ketones Negative Negative mg/dL [facility] Nitrite Urine Negative Negative [facility] Leukocyte Esterase Urine Negative Negative [facility] RBC Urine 0-2 0 - 2 /HPF [facility] Urine WBC 0-5 0 - 5 /HPF [facility] Urine Squamous Epithelial Cell 6-10 0 - 2 /HPF [facility] Urine Bacteria None Seen None Seen [facility] Hyaline Casts, Urine 0-2 0 - 2 /LPF [facility] Urine 08/31/2024 08/31/2024 Narrative [facility] - 08/31/2024 6:23 PM EDT Urine, Clean Catch [facility] LAB URINE ORDERABLES Mary l Result [facility] [address] [place] [phone] * RENAL BI (08/14/2024 6:25 AM EST) Anatomical Region Laterality Modality Abdomen Ultrasound 08/14/2024 6:25 AM EST Narrative 08/14/2024 6:26 AM EST ? [facility] ?[address] ?[place] [address] ? Ultrasound Report ? Signed with Addenda ? Patient: Caitlyn Hercules V ?MR#: ?? [id number] ? : 1980 ?Acct:[id number] ? Age/Sex: 44 / F ?ADM Date: 08/10/ ? Loc: HO.US ? Attending Dr: Sylvia Juarez MD ? Ordering Physician: Sylvia Juarez MD ?? Date of Service: 08/10/24 ?? Procedure(s): US renal BI ?? Accession Number(s): [id number] ? cc: Sylvia Juarez MD; CHAPO DIAL [...] ? DD/ 4 ? TD/TT: 08/14/24624 ? Transition Social Worker: ? Procedure Note Nohemy Miller - 08/14/2024 [place] [address] Ultrasound Report Signed with Terence Patient: Caitlyn Hercules VMR#: [id number] : 1980Acct:[id number] Age/Sex: 44 / FADM Date: 08/10/24 Loc: HO.US Attending Dr: Sylvia Juarez MD Ordering Physician: Sylvia Juarez MD Date of Service: 08/10/24 Procedure(s): US renal BI Accession Number(s): [id number] cc: Sylvia Juarez MD; CHAPO DIAL NP [...] in OV> 08/14/24625 DD/ 4 TD/TT: 08/14/24624 Transition Social Worker: us [facility] External Provider IMG US PROCEDURES Edited Result - Final * Creatinine, Serum (08/06/2024 11:26 AM EST) Creatinine, Serum 1.09 0.5 - 1.4 mg/dL [facility] Estimated Glomerular Filt Rate 55 [facility] Comment:Chronic Kidney Disea se: Estimated GFR < 60 mL/min/[id number] Kidney Disease: Estimated GFR < 15 mL/min/1.73m2 08/06/2024 11:2 6 AM EST 08/06/2024 11:26 AM EST Generic External Data Provider LAB BLOOD ORDERAB LES Final Result Performing Organization Address [facility] Co de Phone Number [facility] [address] [place] [place] [phone] * (ABNORMAL) BUN (Blood Urea Nitrogen) (08/06/2024 11:26 AM EST) Urea Nitrogen (BUN) 17(H) 9 - 16 mg/dL [facility] 08/06/2024 11:2 6 AM EST 08/06/2024 11:26 AM EST Generic External Data Provider LAB BLOOD ORDERAB LES Final Result Performing Organization Address [facility] de Phone Number [facility] [address] [place] [place] [phone] * Electrolyte Panel (08/06/2024 11:26 AM EST) Sodium 140 135 - 145 mmol/L [facility] Potassium 4.1 3.3 - 5.1 mmol/L [facility] Chloride 106 96 - 108 mmol/L [facility] Carbon Dioxide 25 22 - 29 mmol/L [facility] Anion Gap 13 12 - 20 [facility] 08/06/2024 11:2 6 AM EST 08/06/2024 11:26 AM EST Generic External Data Provider LAB BLOOD ORDERAB LES Final Result Performing Organization Address [facility] de Phone Number [facility] [address] [place] [place] [phone] * (ABNORMAL) Protein Creatinine Ratio, Urine (08/06/2024 11:22 AM EST) Creatinine, Urine 156.24 mg/dL [facility] Protein, Total, Random Urine 270(H) <12 mg/dL [facility] Protein/Creati nine Ratio, Ur 1.73(H) <0.2 [facility] Comment:The spot urine prote in:creatinine ratio may increase to 0.3during normal . 08/06/2024 11:2 2 AM EST 08/06/2024 11:30 AM EST us Generic External Data Provider LAB URINE ORDERAB LES Final Result Performing Organization Address City/State/[facility] Co de Phone Number [facility] [address] [place] [phone] * BI Mammogram Screening Tomosynthesis Bilateral (06/22/2024 2:30 PM EST) Anatomical Region Laterality Modality Breast Bilateral Mammography 06/22/2024 2:30 PM EST Narrative 07/01/2024 10:13 AM EST ? [facility] [place] ? [address] ?[place] [address] ? Mammography Report ? Signed ? Patient: Valdo Valverde,Caitlyn V ?MR#: ?? [id number] ? : 1980 ?Acct:[id number] ? Age/Sex: 44 / F ?ADM Date: 01/03/25 ? Loc: HO.MAMMO ? Attending Dr: Chapo Dial SENIOR DATA MINING ANALYST ? Ordering Physician: CHAPO DIAL NP ?Results: 2Benign Fin ?? dings ? Date of Service: /03/25 ?Follow Up: 1 Year From Orig ?? inal Mammogram ? Procedure(s): MM tomosynthesis screening BI ?? Accession Number(s): [id number] ? cc: JAYRO,CHAPO SENIOR DATA MINING ANALYST ? EXAMINATION: ?? MM SCREENING DIGITAL BREAST [...] DD/ 1430 ? TD/TT: 06/22/24 1457 ? Transition Social Worker: ? Procedure Note Nohemy Miller - 07/01/2024 [facility] [address] [place] [address] Dr. Molina, [place] [address] Mammography Report Signed Patient: Caitlyn Hercules R#: [id number] : 1980Acct:[id number] Age/Sex: 44 / FADM Date: 06/22/24 Loc: HO.MAMMO Attending Dr: Chapo Dial NP Ordering Physician: CHAPO DIAL NPResults: 2Benign Jerson ricardo Date of Service: 06/22/24Follow Up: 1 Year From Orig inal Mammogram Procedure(s): MM tomosynthesis screening BI Accession Number(s): [id number] cc: CHAPO DIAL NP EXAMINATION: MM SCREENING [...] 07/01/2024 10:10 AM EST Dictated By: Amy Nion DO Signed By: <Electronically signed by Amy Nino DO in OV> 07/01/24 1010 DD/ 1430 TD/TT: 06/22/24 1457 Transition Social Worker: us Chapo CORRALES IMG BI PROCEDURES Final Result * (ABNORMAL) POCT HGB A1C (06/01/2024 11:57 AM EST) Hemoglobin A1C 6.6(A) 4.0 - 6.0 % QC Media Lot # [id number] Lot# Expiration Date [id number] Blood 06/01/2024 11:5 7 AM EST us Chapo Dial ANP POINT OF CARE TEST ENTER/EDIT OR DERABLES Final Result * (ABNORMAL) Lipid Panel, Standard (11/25/2023 1:39 PM EDT) Triglycerides 155(H) <150 mg/dL [facility] Comment:Desirable Triglyceri de: less than 150 mg/dLBorderline High Triglyceride 150-199 mg/dLHigh Triglyceride: 200-499 mg/dLVery High Triglyceride: greater than or equal to 5OO mg/dL Cholesterol 205(H) <200 mg/dL [facility] Comment:Desirable Cholestero l: less than 200 mg/dLBorderline High Cholesterol: 200-239 mg/dLHigh Cholesterol: greater than 239 mg/dL LDL Cholesterol Calculated 119(H) <100 mg/dL [facility] Comment:Desirable LDL: less than 100 mg/dLNear Optimal/Above Optimal LDL: 110- 129 mg/dLBorderline High LDL: 130-159 mg/dLHigh LDL: 160-189 mg/dLVery High LDL: greater than or equal to 190 mg/dL HDL Cholesterol 55 >40 mg/dL [facility] Comment:Desirable HDL: great er than 40 mg/dL Note: This HDL assay may give artificially low results in patients with liver disease. 11/25/2023 1:39 PM EDT 11/25/2023 1:39 PM EDT Generic External Data Provider LAB BLOOD ORDERAB LES Final Result [facility] [address] [place] [place] [phone] * Hm Pap Smear (11/18/2015) Pap Negative for intraephithelial lesion or malignancy Negative for intraephithelial lesion or malignancy, Other HPV Undetected 11/18/2015 us Historical Provider HEALTH MAINTENANCE Final Result from Last 3 Months or Most Recently Relevant to Health Maintenance Insurance [facility] * Guarantor: Caitlyn Hercules Account Type Relation to Patient Date of Phone Billing Address Personal/Family Self [address] [place] Care Teams Slubber Machine Operator Relationship Specialty Start Date End Date Chapo Dial ANP [address] [place] [phone] PCP - General Family Medicine 07/30/20
--- OUTSIDE RECORDS SUMMARY | 2024-11-02 12:21 | XMS_ITS | Encounter Summary ---
Author Organization [employer] Address [address] [place] [address] Care Team Providers Care Sizer Machine Name Role Phone Niki Allen Primary Care Provider [phone] Reason for Visit * Reason Comments Med Refill Encounter Details Date Type Department Care Team ([facility] st Contact Info) Description 08/16/2023 Refill [facility] MEDICINE [address] [place], [place] [phone] Niki Allen ANP [address] [place], [place] [phone] Mixed hyperlipidemia; Non-seasonal allergic rhinitis due to [...] Description 12/03/2024 11:15 AM EDT Office Visit [facility] MEDICINE [address] [place] [address] Niki Allen ANP [address] [place] [address] documented as of this encounter Visit Diagnoses Diagnosis Mixed hyperlipidemia Non-seasonal allergic rhinitis due to other allergic trigger documented in this encounter Care Teams Sizer Machine Relationship Specialty Start Date End Date Niki Allen ANP [address] [place] [phone] PCP - General Family Medicine 07/30/20 documented as of this encounter
--- OUTSIDE RECORDS SUMMARY | 2024-11-02 12:21 | XMS_ITS | Encounter Summary ---
Author Organization [employer] [facility] Address [address] [facility] 7t [place] [address] Care Team Providers Care Automated Equipment Engineer Technician Name Role Phone Niki Allen Primary Care Provider [phone] Encounter Details Date Type Department Care Team (Late st Contact Info) Description 07/12/2022 Orders Only [facility] [address] [place] [address] [phone] Soraida Segundo LPN Social History Tobacco Use [...] Description 12/03/2024 11:15 AM EDT Office Visit [facility] [address] [place] [phone] Niki Allen ANP [address] [place] [address] documented as of this encounter Procedures Procedure [...] (04/18/2023 7:37 PM EDT) Color Urine Yellow [facility] Appearance Urine Cloudy [facility] PH 6.5 5.0 - 9.0 [facility] Glucose Urine UA Negative Negative mg/dL [facility] Urine Blood Negative Negative [facility] Specific [place] - Urine 1.020 1.005 - 1.025 [facility] Urine Protein 300 (3+)(A) Neg-Trace mg/dL [facility] Urine Ketones Negative Negative mg/dL [facility] Nitrite Urine Negative Negative [facility] Leukocyte Esterase Urine Negative Negative [facility] RBC Urine 0-2 0 - 2 /HPF [facility] Urine WBC 0-5 0 - 5 /HPF [facility] Urine Squamous Epithelial Cell 11-20 0 - 2 /HPF [facility] Urine Bacteria 2+ None Seen [facility] Hyaline Casts, Urine 3-5 0 - 2 /LPF [facility] 04/18/2023 7:37 PM EDT 04/18/2023 7:40 PM EDT Narrative [facility] - 04/18/2023 7:50 PM EDT [id number], Clean Catch us [facility] External Provider LAB URI NE ORDERABLES Final Result [facility] [address] [place] [address] [phone] * Sed Rate by Modified Westergren (04/18/2023 2:12 PM EDT) Pathologist [facility] Erythrocyte Sedimentation Rate 17 0 - 20 MM/HR [facility] Comment:Patients with polycy themia and many hemoglobin abnormalitiesmay have depressed sed rates whereas patients with anemiamay have elevated sed rates. 04/18/2023 2:12 PM EDT 04/18/2023 5:23 PM EDT [facility] External Provider LAB BLO OD ORDERABLES Final Result Performing Organization Address [facility] Co de Phone Number [facility] [address] [place] [address] [phone] * TSH (04/18/2023 2:12 PM EDT) [facility] Thyroid Stimulating Hormone 0.65 0.32 - 4.0 uIU/mL [facility] Comment:TSH 3rd Generation ( [facility]) 04/18/2023 2:12 PM EDT 04/18/2023 2:16 PM EDT Generic External Data Provider LAB BLOOD ORDERAB LES Final Result Performing Organization Address [facility] Co de Phone Number [facility] [address] [place] [address] [phone] * (ABNORMAL) Basic Metabolic Panel (04/18/2023 2:12 PM EDT) Pathologist [facility] Sodium 141 135 - 145 mmol/L [facility] Potassium 3.9 3.3 - 5.1 mmol/L [facility] Chloride 102 96 - 108 mmol/L [facility] Carbon Dioxide 28 22 - 29 mmol/L [facility] Anion Gap 15 12 - 20 [facility] Urea Nitrogen (BUN) 12 9 - 16 mg/dL [facility] Creatinine, Serum 1.23 0.5 - 1.4 mg/dL [facility] Creatinine Clr Calc Pharmacy 77.2 [facility] Comment:Provided height and weight: 165.1 cm,119.748 kg.eGFR (calculated from the MDRD study equation) and eCrCl(calculated from the Cockcroft-Gault equation) are based ondifferent parameters and may not yield comparable results.If eCrCl result is absurd, please check patient'sheight/weight. Estimated Glomerular Filt Rate 48 [facility] Comment:NOTE: For -Am erican individuals, multiply the result by 1.210.Chronic Kidney Disease: Estimated GFR < 60 mL/min/1.96i3Jljmmz Kidney Disease: Estimated GFR < 15 mL/min/1.73m2 Glucose 144(H) 60 - 115 mg/dL [facility] Calcium 9.3 8.4 - 10.2 mg/dL [facility] 04/18/2023 2:12 PM EDT 04/18/2023 2:16 PM EDT us Generic External Data Provider LAB BLOOD ORDERAB LES Final Result [facility] [address] [place] [phone] * (ABNORMAL) Hepatic Function Panel (04/18/2023 2:12 PM EDT) Bilirubin, Total 0.4 0.0 - 1.0 mg/dL [facility] Bilirubin, Direct 0.1 0.0 - 0.5 mg/dL [facility] Aspartate Amino Transferase 20 5 - 31 U/L [facility] Alanine Aminotransferase 19 0 - 31 U/L [facility] Total Protein 8.1(H) 6.5 - 8.0 g/dL [facility] Albumin Level 3.9 3.5 - 5.0 g/dL [facility] Alkaline Phosphatase 78 39 - 117 U/L [facility] 04/18/2023 2:12 PM EDT 04/18/2023 2:16 PM EDT us [facility] External Provider LAB BLO OD ORDERABLES Final Result [facility] [address] [place] [address] [phone] * (ABNORMAL) CBC auto differential (04/18/2023 2:12 PM EDT) White Blood Count 10.5 4.8 - 10.8 X10*3/uL [facility] Red Blood Count 4.97 4.20 - 5.50 X10*6/uL [facility] Hemoglobin 13.3 12.0 - 16.0 g/dl [facility] Hematocrit 42.1 37.0 - 47.0 % [facility] Mean Corpuscular Volume 84.7 80.0 - 98.0 fL [facility] Mean Corpuscular Hemoglobin 26.8(L) 27.0 - 33.0 pg [facility] Mean Corpuscular HGB Conc 31.6 31.0 - 35.0 g/dl [facility] Red Cell Distribution Width 17.0(H) 11.0 - 16.0 % [facility] Platelet Count 298 160 - 400 X10*3/uL [facility] Mean Platelet Volume 10.9 9.4 - 12.3 fL [facility] Neutrophils Percent Auto 61.6 45 - 73 % [facility] Imm Gran Pct Auto 0.2 0.0 - 0.4 % [facility] Lymphocytes Percent Auto 28.1 20 - 40 % [facility] Monocytes Percent Auto 8.0 2 - 11 % [facility] Eosinophils Percent Auto 1.2 0 - 4 % [facility] Basophils Percent Auto 0.9 0 - 2 % [facility] NRBC Pct Auto 0.0 0.0 - 0.2 /100WBC [facility] Neutrophils Absolute Auto 6.4 2.0 - 8.3 x10*3/uL [facility] Imm Gran Abs Auto 0.02 0.00 - 0.03 X10*3/uL [facility] Lymphocytes Absolute Auto 2.9 1.2 - 4.9 X10*3/uL [facility] Monocytes Absolute Auto 0.8 0.1 - 1.2 X10*3/uL [facility] Eosinophils Absolute Auto 0.1 0.0 - 0.4 X10*3/uL [facility] Basophils Absolute Auto 0.1 0.0 - 0.2 X10*3/uL [facility] NRBC Abs Auto 0.000 0.0 - 0.012 X10*3/uL [facility] 04/18/2023 2:12 PM EDT 04/18/2023 2:16 PM EDT [facility] External Provider LAB BLO OD ORDERABLES Final Result Performing Organization Address [facility] Co de Phone Number [facility] [address] [place] [phone] * (ABNORMAL) Protein Creatinine Ratio, Urine (09/09/2022 10:57 AM EDT) Creatinine, Urine 49.94 mg/dL [facility] Protein, Total, Random Urine 240(H) <12 mg/dL [facility] Protein/Creati nine Ratio, Ur 4.81(H) <0.2 [facility] Comment:The spot urine prote in:creatinine ratio may increase to 0.3during normal . 09/09/2022 10:5 7 AM EDT 09/09/2022 12:07 PM EDT [facility] External Provider LAB URI NE ORDERABLES Final Result Performing Organization Address [facility] Co de Phone Number [facility] [address] [place] [address] [phone] documented in this encounter Visit Diagnoses Not on filedocumented in this encounter Care Teams Automated Equipment Engineer Technician Relationship Specialty Start Date End Date Niki Allen, ANTONI [address] [place] [phone] PCP - General Family Medicine 07/30/20 documented as of this encounter
--- OUTSIDE RECORDS SUMMARY | 2024-11-02 12:21 | XMS_ITS | Clinical Summary ---
Author Organization [address] [facility] Address [address] [place] [address] Phone Care Team Providers Care Repair Cameraman Name Role Phone Niki Allen NP Primary Care Provider [phone] Allergies Active Allergy Reactions Criticality Noted Date [...] Type 2 diabetes mellitus wit h hyperlipidemia ([facility] V24, [facility] V28) 02/13/2024 Overview (07/19/2024): new dx 01/2024, metformin 500mg BID, lantus 10 units with plan to increase Cigarette nicotine dependence without complicati on 08/15/2023 Mixed hyperlipidemia 08/15/2023 Hypoxia 12/08/2022 Pulmonary hypertension ([facility] V24, [facility] V28 ) 12/08/2022 Overview (07/19/2024): [place] w[facility] BP meds: Verapamil 180mg ER 2 [...] Nephrectomy Malignant tumor of kidney pa renchyma ([facility] V24, [facility] V28) 01/28/2014 Overview (07/19/2024): Renal Carcinoma Immunizations [...] Care Team (Late st Contact Info) Description 04/05/2025 10:30 AM EDT Office Visit Bariatric Surgery - [place] [address] [facility] [address] [place] [address] Liv Cartagena PA [address] [facility] [address] [place] [address] Health Maintenance Due Date Last Done Comments [...] - [place] [employer] Care Teams Repair Cameraman Relationship Specialty Start Date End Date Niki Allen NP [address] [place] [phone] PCP - General 07/19/24
--- OUTSIDE RECORDS SUMMARY | 2024-11-02 12:21 | XMS_ITS | Clinical Summary ---
Author Organization [facility] Address [address] [place] [address] Phone Care Team Providers Care Health And Safety Coordinator Name Role Phone Tiffany Niki Perez NP Primary Care Provider [phone] Allergies Active Allergy Reactions Criticality Noted Date [...] Health Maintenance Due Date Last Done Comments Hepatitis B Vaccine (1 of 3 - 19+ 3-dose series) 06/10 Pneumococcal Vaccine: Peds ( 0 to 5 Years) and At-Risk Patients (6 to 49 Years) (1 of 2 - PCV) 1999 Influenza Vaccine (Season Ended) 2025 Insurance Medicaid [place] Medicaid [place] Care Teams Health And Safety Coordinator Relationship Specialty Start Date End Date Niki Allen NP PCP - General Nurse Practitioner 01/13/22
[2024-11-02 12:57] LABS: Anion Gap 13 (12-20); Blood Urea Nitrogen 15 mg/dL (9-16); Carbon Dioxide 26 mmol/L (22-29); Chloride 104 mmol/L (96-108); Estimated Glomerular Filt Rate 51; Glucose Random 93 mg/dL (60-115); Potassium 4.7 mmol/L (3.3-5.1); Sodium 138 mmol/L (135-145)
== END 2024-11-02 12:19 | disposition home or self-care (01) ==
LOC: HO.HOSX 12:18
PROVIDERS: Absent Provider Nurse Practitioner Family; PCP Nurse Practitioner Primary Care; Visit Provider Physician Assistant
DX: R07.89 Other chest pain (principal); M25.569 Pain in unspecified knee; M17.11 Unilateral primary osteoarthritis, right knee
CPT/HCPCS: 36415; 73562; 80048

== ENCOUNTER 2024-11-02 12:35 | Outpatient (AMB) | payer OTHER, MEDICAID, SELFPAY ==
--- NOTE | 2024-11-02 12:44 | A.OFFVIS_ITS ---
Vital Signs 11/02/24 13:00 Height 5 ft 5 in Weight 259 lb BMI 43.1 Intake Visit Reasons: OV- Right knee pain/swelling Intake Note: Caitlyn is a 44 year old female who presents today for a evaluation of her right knee OA. At her last appointment with they spoke about gel injections. Patient has tried cortisone injections in the past with no relief. She states that she had mild relief with PT. Patient is wanting to move forward with the gel injections. Allergies pork derived (porcine) [Pork derived (porcine)] Allergy (Intermediate, Verified 11/02/24 13:00) HIVES/STOMACH PAIN/THROAT CLOSES ibuprofen [From Motrin] Allergy (Mild, Verified 11/02/24 13:00) GI UPSET aspirin Allergy (Unknown, Verified 11/02/24 13:00) Unknown red dye Allergy (Verified 11/02/24 13:00) Unknown Motrin Allergy (Unknown, Uncoded 08/20/24 15:12) Unknown pork Allergy (Unknown, Uncoded 08/20/24 15:12) Unknown HPI HPI OV- Right knee pain/swelling: Details: Ms. Valdo Valverde this is a 44-year-old female who presents to the office today for evaluation of right knee pain. She had recently seen Dr. Grover in May of 2023 for the same issue in which gel injections were discussed. Of note, the patient does have a past history of a partial meniscectomy with Dr. Lea. [facility] significant for Diabetes. She reports that she has had cortisone injections in the past with no relief. She has also tried and failed multiple NSAIDs OTC and tylenol with no relief. [facility] Medical History IgA nephropathy Cancer of left kidney Migraine headache Asthma Hypertension Myocardial infarction IgA nephropathy Surgical History Morbid obesity H/O partial nephrectomy H/O right knee surgery H/O: hysterectomy Family History Mother IgA nephropathy Breast cancer Cancer of kidney CVA (cerebral vascular accident) Maternal Uncle Tongue cancer Social History Household Members: Family Housing: House Do you presently have visiting nurse or other home services: No Alcohol intake: never Comment: sleeping Cigarette Packs Per Day: 1 Cigarettes Per Day: 20.0 service: No Current occupational status: employed Review of Systems Const All systems reviewed & are unremarkable except as noted in HPI and below Physical Exam Vital Signs: BMI result Body Mass Index 43.1 Extrem Other: Right knee mild effusion. Crepitus with ROM. ROM 0-90 degrees. Tenderness to palpation over the medial joint line. NVI. Assessment & Plan Assessment & Plan (1) Morbid obesity: Code(s): E66.01 - Morbid (severe) obesity due to excess calories Category: Surgical (2) Osteoarthritis of right knee: Code(s): M17.11 - Unilateral primary osteoarthritis, right knee Category: Medical (3) Diabetes: Code(s): E11.9 - Type 2 diabetes mellitus without complications Category: Medical Plan Ms. Valdo Valverde this is a 44-year-old female who presents to the office today for evaluation of right knee pain. She had recently seen Dr. Grover in May of 2023 for the same issue in which gel injections were discussed. Of note, the patient does have a past history of a partial meniscectomy with Dr. Lea. [facility] significant for Diabetes. She reports that she has had cortisone injections in the past with no relief. She has also tried and failed multiple NSAIDs OTC and tylenol with no relief. Patient is not a surgical candidate with a BMI of 43.1. While the office today, we discussed the role of gel injections. She would like to move forward these as cortisone in the past has given her no relief. Additionally, she has tried multiple anti-inflammatories which did not offer any relief. She also has allergies to ibuprofen which causes GI upset and aspirin. We will petition the insurance company for coverage of gel injections in the patient will follow up after approval is obtained, sooner if needed. X-rays of the right knee which were obtained while in the office today and were reviewed by me, Linda Broussard PA-C, revealed osteoarthritis. Orders: Orders XR knee RT 3V 11/02/24 M25.569 - Pain in unspecified knee Coding Level of Care Code Est Pt Level 4 (33952) Diagnoses Morbid obesity E66.01 Osteoarthritis of right knee M17.11 Diabetes E11.9
[2024-11-02 13:00] VITALS: BMI 43.1
== END 2024-11-02 13:18 | disposition home or self-care (01) ==
LOC: HO.HOS 12:36
PROVIDERS: PCP Nurse Practitioner Primary Care; Visit Provider Physician Assistant
DX: M17.11 Unilateral primary osteoarthritis, right knee (principal); E66.01 Morbid (severe) obesity due to excess calories; E11.9 Type 2 diabetes mellitus without complications
CPT/HCPCS: 99214

== ENCOUNTER → 2024-11-02 12:44 | Outpatient (BNV) | payer OTHER, SELFPAY | PROVIDERS: Absent Provider Nurse Practitioner Family; PCP Nurse Practitioner Primary Care; Visit Provider Radiology Diagnostic Radiology | DX: M17.11 Unilateral primary osteoarthritis, right knee (principal) | CPT/HCPCS: 73562 ==

== ENCOUNTER 2024-11-23 12:53 | Outpatient (AMB) | payer OTHER, SELFPAY ==
--- OUTSIDE RECORDS SUMMARY | 2024-11-23 12:55 | XMS_ITS | Encounter Summary ---
Author Organization [employer] Address [address] [facility] [address] [place] [address] Care Team Providers Care Stud Master/Mistress Name Role Phone Niki Allen Primary Care Provider [phone] Reason for Visit * Reason Onset Date Comments Call Back Request 04/18/2023 Encounter Details Date Type Department Care Team ([facility] st Contact Info) Description 04/18/2023 Telephone [facility] [address] [place], [place] [phone] Niki Allen ANP [address] [place], [place] [phone] Call Back Request Social History Tobacco Use [...] notes were fax over same day 04/17/2023, Veneer Taping Machine Operator transferred over to HIM to verify if notes were received. Please contact Yamila at [phone] documented in this encounter Plan of Treatment Upcoming Encounters Date Type Department Care Team (Late st Contact Info) Description 12/03/2024 11:15 AM EDT Office Visit [facility] [address] [place] [address] Niki Allen ANP [address] [place] [address] documented as of this encounter Visit Diagnoses Not on filedocumented in this encounter Care Teams Stud Master/Mistress Relationship Specialty Start Date End Date Niki Allen ANP [address] [place] [address] PCP - General Family Medicine 07/30/20 documented as of this encounter
[2024-11-23 13:14] VITALS: BP 130/72; PULSE 82; BMI 44.0
--- NOTE | 2024-11-23 13:14 | MHC.OFFVIS ---
Vital Signs 11/23/24 13:14 Height 5 ft 5 in Weight 264 lb 8.875 oz BMI 44.0 BP 130/72 Blood Pressure Location Lt brachial Position Sitting Pulse 82 Pulse Source Pulse Oximeter Intake Visit Reasons: 3m follow up Well Servicing Rig Operator Required: No Allergies pork derived (porcine) [Pork derived (porcine)] Allergy (Intermediate, Verified 11/23/24 13:17) HIVES/STOMACH PAIN/THROAT CLOSES ibuprofen [From Motrin] Allergy (Mild, Verified 11/23/24 13:17) GI UPSET aspirin Allergy (Unknown, Verified 11/23/24 13:17) Unknown red dye Allergy (Verified 11/23/24 13:17) Unknown Motrin Allergy (Unknown, Uncoded 11/23/24 13:17) Unknown pork Allergy (Unknown, Uncoded 11/23/24 13:17) Unknown jardience Adverse Reaction (Uncoded 11/23/24 13:17) Hives Medication List - Last Reconciled 11/23/24 by OLGA Taylor albuterol sulfate 90 mcg/actuation (ProAir HFA) 2 puffs inhalation QID PRN empagliflozin (Jardiance) 10 mg PO DAILY fluticasone propion-salmeterol 250-50 mcg/dose (Advair Diskus) 1 inh inhalation BID hydralazine 50 mg PO BID hydroxyzine HCl 50 mg PO BID lisinopril 20 mg (2 x 10 mg) PO DAILY loratadine (Claritin) 10 mg PO DAILY melatonin 5 mg PO BEDTIME PRN metformin 500 mg PO BID nicotine (polacrilex) 2 mg PO NEEDED nitroglycerin 0.4 mg sublingual Q5M PRN MDD 3 omega [id number]-[id number]-fish oil 1,000 (120-180) mg (Fish Oil) 2 caps PO DAILY 90 days pantoprazole 40 mg PO DAILY rosuvastatin 5 mg PO DAILY sertraline 100 mg PO DAILY spironolactone 25 mg PO DAILY 90 days trazodone 100 - 200 mg PO BEDTIME verapamil ER 180 mg PO BID HPI HPI 3m follow up: Details: Caitlyn is a 44-year-old female with past medical history of hypertension, smoking, nocturnal hypoxia with home O2 use during sleep, morbid obesity who is being evaluated for chest discomfort,recently had a CTA of the coronary arteries and now presents for follow-up. Today she reports that she had 1 episode of stabbing chest discomfort while sitting at her desk at work since her last visit. She said the episode caused her left arm to tingle. She did take a nitroglycerin with relief. She does recall having a hot flash prior to the discomfort. She has been active and denies any chest discomfort brought on by physical activity. She has some shortness of breath with activity which is not new. She has a history of asthma which has been controlled. No presyncope, syncope, falls. No PND, orthopnea or edema. 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 She is taking her meds as directed. She admits to being mostly sedentary. COUNT INCLUDES THE [facility] Medical History IgA nephropathy Cancer of left kidney Migraine headache Asthma Hypertension Myocardial infarction IgA nephropathy Surgical History Morbid obesity H/O partial nephrectomy H/O right knee surgery H/O: hysterectomy Family History Mother IgA nephropathy Breast cancer Cancer of kidney CVA (cerebral vascular accident) Maternal Uncle Tongue cancer Social History Household Members: Family Housing: House Do you presently have visiting nurse or other home services: No Alcohol intake: never Comment: sleeping Cigarette Packs Per Day: 1 Cigarettes Per Day: 20.0 service: No Current occupational status: employed Review of Systems Const All systems reviewed & are unremarkable except as noted in HPI and below ENT Denies dizziness Card Reports chest pain, Denies chest pain at rest, Denies chest pain with activity, Denies rapid heart rate, Denies pedal edema, Denies edema, Denies leg edema, Denies lightheadedness, Denies palpitations, Denies dyspnea, Denies dyspnea on exertion and Denies orthopnea Resp Denies cough, Denies dyspnea and Denies dyspnea on exertion GI Denies hematochezia and Denies change in stool character Musc Denies abnormal gait, Reports limited range of motion, Reports muscle cramps, Denies muscle weakness, Denies numbness, Denies radiating pain into limb, Denies stiffness and Denies tingling Neuro Denies abnormal gait, Denies dizziness, Denies numbness and Denies tingling Endo Denies palpitations Physical Exam Vital Signs: Last Vital Signs Pulse 82 11/23/24 13:14 BP 130/72 11/23/24 13:14 BMI result Body Mass Index 44.0 Const General: cooperative, healthy appearing, comfortable and no acute distress Orientation/consciousness: patient oriented x3 Neck Neck: Yes normal visual inspection Resp Effort & Inspection: normal respiratory effort Auscultation: clear to auscultation bilaterally, no crackles, no rales, no rhonchi and no wheezes Cardio Jugular venous distension: no JVD Rate: regular rate Rhythm: regular rhythm Heart sounds: S1 normal heart sound present, S2 normal heart sound present, no murmurs and no rubs Neuro General: patient oriented x3 Extrem General: Yes normal to inspection Psych Appearance: grossly normal Mental Status: mental status grossly normal Speech and movement: Normal speech and movement present Assessment & Plan Assessment & Plan (1) Chest discomfort: Code(s): R07.89 - Other chest pain Category: Medical Plan: Reports of random sharp nonexertional left-sided chest discomfort, which relieves when she takes nitroglycerin. This causes her much concern. Cardiac risk factors of hypertension, smoking, morbid obesity, sedentary, newer diabetes. Last echo done 02/23/2023 shows EF 60-65%, moderate left ventricular hypertrophy and grade 2 diastolic dysfunction, mild AR, [id number] elevated RV systolic pressure. Nuclear stress test done on 06/17/2023 showing normal myocardial perfusion imaging. A CTA of the coronary arteries done on 11/07/2024 shows no definite high-grade stenosis, exam moderately degraded by body habitus and cardiac motion artifact. Test results reviewed with her in detail. Recommend that she not use nitroglycerin for her discomfort as there is no indication that it is cardiac. Continue with risk factor modification. Continue hydralazine, lisinopril, verapamil, Aldactone for good blood pressure control. Continue rosuvastatin for cholesterol control. Emergency care if ever needed for symptoms. Consider noncardiac causes for her discomfort. Cardiology follow-up 6 months, sooner if needed (2) Right ventricular dysfunction: Code(s): I51.9 - Heart disease, unspecified Category: Medical Plan: History of morbid obesity and nocturnal hypoxemia leading to increased filling pressures in her heart. Also has history of moderate persistent asthma and smoking. Follows with pulmonology Dr. Thomas. Uses O2 1 L during sleep. Echocardiogram done 02/23/2023 shows EF 60-65%, moderate LVH, grade 2 diastolic dysfunction, moderate dilated left atrium, mild aortic regurgitation, RVSP 45 mmHg. Echo from 2020 showed RVSP 55 mmHg. She has no signs of heart failure on examination. She tells me that she no longer smokes but is vaping. Benefit of weight loss reviewed. Increase physical activity as tolerated. Periodic home blood pressure checks. Instructed to call if systolic running greater than 140. (3) Diastolic dysfunction: Code(s): I51.89 - Other ill-defined heart diseases Category: Medical Plan: Grade 2 diastolic dysfunction on last echo (4) LVH (left ventricular hypertrophy): Code(s): I51.7 - Cardiomegaly Category: Medical Plan: Moderate LVH on last echo. This is up from mild LVH on echo in 2020. Will continue to work on good blood pressure control (5) Morbid obesity: Code(s): E66.01 - Morbid (severe) obesity due to excess calories Category: Surgical Plan: Benefit of weight loss reviewed. She is working on diet control. May benefit from bariatric program referral. (6) Hypertension: Code(s): I10 - Essential (primary) hypertension Category: Medical Qualifiers: Hypertension type: primary hypertension Qualified Code(s): I10 - Essential (primary) hypertension Plan: Blood pressure goal less than 130/80. Blood pressure at goal today. No med changes made. Plan I discussed with the patient the results of the recent coronary CTA, which did not indicate any high-grade stenosis, providing reassurance against acute coronary events. We reviewed the importance of continuing her current antihypertensive regimen and maintaining regular monitoring of her lab parameters, especially given her recent diagnosis of diabetes. I emphasized the necessity of lifestyle modifications, including weight management and smoking cessation, to further reduce cardiovascular risk. No further testing needed at this time medications, and follow-up care will focus on managing her existing comorbidities and risk factors. Patient Instructions: - Continue taking medications as prescribed. - Monitor blood pressure regularly. - Check blood sugar levels as directed. - Consider weight loss program. - Stop vaping. - Use supplemental oxygen at night, as prescribed. - Call immediately if new or worsening chest pain occurs/ emergency care if needed Patient was informed and verbally consented to the use of an ambient scribe for clinic note documentation during this visit. Visit time spent on chart review, interview, assessment, orders, documentation. Coding Level of Care Code Est Pt Level 4 (56775) Complex EM visit Add On G2211 Diagnoses Chest discomfort R07.89 Right ventricular dysfunction I51.9 Diastolic dysfunction I51.89 LVH (left ventricular hypertrophy) I51.7 Morbid obesity E66.01 Primary hypertension I10 Hypertension type: primary hypertension Time Spent (min) 30
== END 2024-11-23 13:51 | disposition home or self-care (01) ==
LOC: HO.HCS 12:54
PROVIDERS: PCP Nurse Practitioner Primary Care; Visit Provider Nurse Practitioner Family
DX: R07.89 Other chest pain (principal); I51.9 Heart disease, unspecified; I51.89 Other ill-defined heart diseases; I51.7 Cardiomegaly; E66.01 Morbid (severe) obesity due to excess calories; I10 Essential (primary) hypertension
CPT/HCPCS: 99214; G2211

== ENCOUNTER → 2024-11-23 12:53 | Outpatient (BNVA) | payer OTHER, SELFPAY | PROVIDERS: PCP Nurse Practitioner Primary Care; Visit Provider Nurse Practitioner Family ==

== ENCOUNTER 2024-11-29 12:57 | Outpatient (AMB) | payer OTHER, SELFPAY ==
--- NOTE | 2024-11-29 13:04 | MHC.OFFVIS ---
Intake Visit Reasons: right knee Euflexxa Gel injection #1 Intake Note: Caitlyn is a 44 year old female who presents today for her right knee Euflexxa Gel injection #1. Allergies pork derived (porcine) [Pork derived (porcine)] Allergy (Intermediate, Verified 11/29/24 13:12) HIVES/STOMACH PAIN/THROAT CLOSES ibuprofen [From Motrin] Allergy (Mild, Verified 11/29/24 13:12) GI UPSET aspirin Allergy (Unknown, Verified 11/29/24 13:12) Unknown red dye Allergy (Verified 11/29/24 13:12) Unknown Motrin Allergy (Unknown, Uncoded 11/23/24 13:17) Unknown pork Allergy (Unknown, Uncoded 11/23/24 13:17) Unknown jardience Adverse Reaction (Uncoded 11/23/24 13:17) Hives HPI HPI right knee Euflexxa Gel injection #1: Details: Ms. Valdo Valverde is a 44-year-old female who presents to the office today for right knee Euflexxa injection 1. [facility] Medical History IgA nephropathy Cancer of left kidney Migraine headache Asthma Hypertension Myocardial infarction IgA nephropathy Surgical History Morbid obesity H/O partial nephrectomy H/O right knee surgery H/O: hysterectomy Family History Mother IgA nephropathy Breast cancer Cancer of kidney CVA (cerebral vascular accident) Maternal Uncle Tongue cancer Social History Household Members: Family Housing: House Do you presently have visiting nurse or other home services: No Alcohol intake: never Comment: sleeping Cigarette Packs Per Day: 1 Cigarettes Per Day: 20.0 service: No Current occupational status: employed Review of Systems Const All systems reviewed & are unremarkable except as noted in HPI and below Physical Exam Extrem Other: Right knee mild effusion. Crepitus with ROM. ROM 0-90 degrees. Tenderness to palpation over the medial joint line. NVI. Office Procedures AMB Joint Injection/Aspiration Joint Injection/Aspiration Primary Site: right knee Prep: site was prepped using aseptic technique, ethochloride spray was applied and injection warnings given Injected: in the joint and other (Euflexxa 1.) Procedure: The patient tolerated the procedure well, but had some pain with the injection and there was some relief with the local anesthesia Coding 93996 - Large joint Procedure code (CPT) selection complete Assessment & Plan Assessment & Plan (1) Osteoarthritis of right knee: Code(s): M17.11 - Unilateral primary osteoarthritis, right knee Category: Medical Plan Patient presents to the office today for Euflexxa 1. Injection in the right knee. The patient was explained the risks, benefits, and alternatives to receiving this injection. After receiving consent for the injection, the patient had the procedure done while in the office today. The patient tolerated the procedure well with no complications. Follow-up will be in 1 week for Euflexxa 2 , or sooner if needed Coding Level of Care Code Procedure Only Diagnoses Osteoarthritis of right knee M17.11 CPT Codes Coding - 01035 Large joint: 96855 - Large joint ([id number])
--- OUTSIDE RECORDS SUMMARY | 2024-11-29 15:02 | XMS_ITS | Encounter Summary ---
Author Organization [employer] Address [address] [place] [address] Care Team Providers Care Systems Software Manager Name Role Phone Niki Allen Primary Care Provider Reason for Visit * Reason Onset Date Comments Call Back Request 04/18/2023 Encounter Details Date Type Department Care Team ([facility] st Contact Info) Description 04/18/2023 Telephone [facility] [address] [place], [place] [phone] Niki Allen ANP [address] [place], [place] [phone] Call Back Request Social History Tobacco Use [...] notes were fax over same day 04/17/2023, Upper Lining Cementer transferred over to HIM to verify if notes were received. Please contact Yamila at [phone] documented in this encounter Plan of Treatment Upcoming Encounters Date Type Department Care Team (Late st Contact Info) Description 03/08/2025 1:45 PM EDT Office Visit [facility] [address] [place] [address] Niki Allen ANP [address] [place] [address] documented as of this encounter Visit Diagnoses Not on filedocumented in this encounter Care Teams Systems Software Manager Relationship Specialty Start Date End Date Niki Allen ANP [address] [place] [address] PCP - General Family Medicine 07/30/20 documented as of this encounter
== END 2024-11-29 13:19 | disposition home or self-care (01) ==
LOC: HO.HOS 12:58
PROVIDERS: PCP Nurse Practitioner Primary Care; Visit Provider Physician Assistant
DX: M17.11 Unilateral primary osteoarthritis, right knee (principal)
CPT/HCPCS: 20610

== ENCOUNTER → 2024-11-29 12:57 | Outpatient (BNVA) | payer OTHER, SELFPAY | PROVIDERS: PCP Nurse Practitioner Primary Care; Visit Provider Physician Assistant | DX: M17.11 Unilateral primary osteoarthritis, right knee (principal) | CPT/HCPCS: 20610; J7323 ==

== ENCOUNTER 2024-12-06 13:07 | Outpatient (AMB) | payer OTHER, SELFPAY ==
--- NOTE | 2024-12-06 13:16 | MHC.OFFVIS ---
Intake Visit Reasons: right knee Euflexxa gel injection #2 Intake Note: Caitlyn is a 44 year old female who presents today for her right knee euflexxa gel injection #2. Patient reports her last injection gave her some relief. Her pain went from 10/10 to 7/10. Allergies pork derived (porcine) (Pork derived (porcine)) Allergy (Intermediate, Verified 11/29/24 13:12) HIVES/STOMACH PAIN/THROAT CLOSES ibuprofen (From Motrin) Allergy (Mild, Verified 11/29/24 13:12) GI UPSET aspirin Allergy (Unknown, Verified 11/29/24 13:12) Unknown red dye Allergy (Verified 11/29/24 13:12) Unknown Motrin Allergy (Unknown, Uncoded 11/23/24 13:17) Unknown pork Allergy (Unknown, Uncoded 11/23/24 13:17) Unknown jardience Adverse Reaction (Uncoded 11/23/24 13:17) Hives HPI HPI right knee Euflexxa gel injection #2: Details: Ms. Valdo Valverde is a 44-year-old female who presents to the office today for right knee Euflexxa 2. She reports that she has seen some improvement after the 1st injection. [facility] Medical History IgA nephropathy Cancer of left kidney Migraine headache Asthma Hypertension Myocardial infarction IgA nephropathy Surgical History Morbid obesity H/O partial nephrectomy H/O right knee surgery H/O: hysterectomy Family History Mother IgA nephropathy Breast cancer Cancer of kidney CVA (cerebral vascular accident) Maternal Uncle Tongue cancer Social History Household Members: Family Housing: House Do you presently have visiting nurse or other home services: No Alcohol intake: never Comment: sleeping Cigarette Packs Per Day: 1 Cigarettes Per Day: 20.0 service: No Current occupational status: employed Review of Systems Const All systems reviewed & are unremarkable except as noted in HPI and below Physical Exam Extrem Other: Right knee mild effusion. Crepitus with ROM. ROM 0-90 degrees. Tenderness to palpation over the medial joint line. NVI. Office Procedures AMB Joint Injection/Aspiration Joint Injection/Aspiration Primary Site: right knee Prep: site was prepped using aseptic technique, ethochloride spray was applied and injection warnings given Injected: other (Euflexxa #2) Approach Used: anterolateral Procedure: The patient tolerated the procedure well, but had some pain with the injection and there was some relief with the local anesthesia Coding 86879 - Large joint Procedure code (CPT) selection complete Assessment & Plan Assessment & Plan (1) Osteoarthritis of right knee: Code(s): M17.11 - Unilateral primary osteoarthritis, right knee Category: Medical Plan The patient was offered a right knee Euflexxa 2. Injection. The patient was explained the risks, benefits, and alternatives to receiving this injection. After receiving consent for the injection, the patient had the procedure done while in the office today. The patient tolerated the procedure well with no complications. Follow-up will be 1 week for Euflexxa 3., or sooner if needed Coding Level of Care Code Procedure Only Diagnoses Osteoarthritis of right knee M17.11 CPT Codes Coding - 43978 Large joint: 10199 - Large joint ([id number])
--- OUTSIDE RECORDS SUMMARY | 2024-12-06 14:15 | XMS_ITS | Encounter Summary ---
Author Organization [employer] Address [address] [place] [address] Care Team Providers Care Electrician Second Name Role Phone Niki Allen Primary Care Provider [phone] Reason for Visit * Reason Onset Date Comments Call Back Request 04/18/2023 Encounter Details Date Type Department Care Team ([facility] st Contact Info) Description 04/18/2023 Telephone [facility] [address] [place], [place] [phone] Niki Allen ANP [address] [place], [place] [phone] Call Back Request Social History Tobacco Use [...] notes were fax over same day 04/17/2023, Survey Methodologist transferred over to HIM to verify if notes were received. Please contact Yamila at [phone] documented in this encounter Plan of Treatment Upcoming Encounters Date Type Department Care Team (Late st Contact Info) Description 03/08/2025 1:45 PM EDT Office Visit [facility] [address] [place] [address] Niki Allen ANP [address] [place] [address] documented as of this encounter Visit Diagnoses Not on filedocumented in this encounter Care Teams Electrician Second Relationship Specialty Start Date End Date Niki Allen ANP [address] [place] [address] PCP - General Family Medicine 07/30/20 documented as of this encounter
== END 2024-12-06 13:37 | disposition home or self-care (01) ==
LOC: HO.HOS 13:07
PROVIDERS: PCP Nurse Practitioner Primary Care; Visit Provider Physician Assistant
DX: M17.11 Unilateral primary osteoarthritis, right knee (principal)
CPT/HCPCS: 20610

== ENCOUNTER → 2024-12-06 13:07 | Outpatient (BNVA) | payer OTHER, SELFPAY | PROVIDERS: PCP Nurse Practitioner Primary Care; Visit Provider Physician Assistant | DX: M17.11 Unilateral primary osteoarthritis, right knee (principal) | CPT/HCPCS: 20610; J7323 ==

== ENCOUNTER 2024-12-07 10:59 | Outpatient (AMB) | payer OTHER, SELFPAY ==
--- NOTE | 2024-12-07 11:16 | HO.NEPHOV ---
Vital Signs 12/07/24 11:26 Height 5 ft 5 in Weight 200 lb 6 oz BMI 33.3 BP 130/60 Blood Pressure Location Rt brachial Position Sitting Pulse 98 Pulse Source Pulse Oximeter Pulse Oximetry (%) 97 Oxygen Delivery Method Room Air Intake Visit Reasons: CKD-Conf Cattle And Wheat Farmer Required: No Accompanied by: Grand Parent Allergies pork derived (porcine) (Pork derived (porcine)) Allergy (Intermediate, Verified 12/07/24 11:25) HIVES/STOMACH PAIN/THROAT CLOSES ibuprofen (From Motrin) Allergy (Mild, Verified 12/07/24 11:25) GI UPSET aspirin Allergy (Unknown, Verified 12/07/24 11:25) Unknown red dye Allergy (Verified 12/07/24 11:25) Unknown Motrin Allergy (Unknown, Uncoded 11/23/24 13:17) Unknown pork Allergy (Unknown, Uncoded 11/23/24 13:17) Unknown jardience Adverse Reaction (Uncoded 11/23/24 13:17) Hives HPI Comments Details: Caitlyn was seen in follow-up of her hypertension and proteinuria on a backdrop of IgA nephropathy. She had partial nephrectomy on the left side for a renal mass . She has gained significant weight and has a new diagnosis of DM. She was started on insulin for A1c close to 12 but is just on metformin now with A1c improving to under 7.0 She is compliant with her medications. Blood pressure has been acceptable. She has no sore throat, hematuria, headache, visual disturbances, chest pain, shortness of breath, proximal nocturnal dyspnea or orthopnea. She is tolerating her current medication regimen. She is taking her fish oil. She has no orthostatic symptoms. She avoids nonsteroidal anti-inflammatory medications. She does not have any night sweats or hematuria. [facility] Medical History IgA nephropathy Cancer of left kidney Migraine headache Asthma Hypertension Myocardial infarction IgA nephropathy Surgical History Morbid obesity H/O partial nephrectomy H/O right knee surgery H/O: hysterectomy Family History Mother IgA nephropathy Breast cancer Cancer of kidney CVA (cerebral vascular accident) Maternal Uncle Tongue cancer Social History Household Members: Family Housing: House Do you presently have visiting nurse or other home services: No Alcohol intake: never Comment: sleeping Cigarette Packs Per Day: 1 Cigarettes Per Day: 20.0 service: No Current occupational status: employed Review of Systems Const All systems reviewed & are unremarkable except as noted in HPI and below Physical Exam Const General: comfortable and no acute distress Orientation/consciousness: patient oriented x3 HEENT Head: Yes normocephalic Mouth: Normal oral and palatal mucosa present Eyes EOM: EOMs intact bilaterally Neck Neck: Yes supple Resp Auscultation: clear to auscultation bilaterally Cardio Jugular venous distension: no JVD Rate: regular rate GI Palpation (GI): Soft to palpation Auscultation: normal bowel sounds General: Yes no CVA tenderness Back/Spine/Pelvis Back: no CVA tenderness Skin General skin exam: no rashes or lesions noted Neuro General: patient oriented x3 and moves all extremities Extrem General: Yes no pedal edema Results Reviewed Nephrology Results: Sodium, (135-145) 138 mmol/L 11/02/24 Potassium, (3.3-5.1) 4.7 mmol/L 11/02/24 Chloride, (96-108) 104 mmol/L 11/02/24 Carbon Dioxide, (22-29) 26 mmol/L 11/02/24 BUN, (9-16) 15 mg/dL 11/02/24 Creatinine, (0.5-1.4) 1.15 mg/dL 11/02/24 Calcium, (8.4-10.2) 9.0 mg/dL 11/02/24 Urine Protein, (Neg-Trace) 100 (2+) mg/dL H 08/31/24 Renal US 08/14/24 Assessment & Plan Assessment & Plan (1) Hypertension: Code(s): I10 - Essential (primary) hypertension Category: Medical Qualifiers: Hypertension type: primary hypertension Qualified Code(s): I10 - Essential (primary) hypertension (2) IgA nephropathy: Code(s): N02.8 - Recurrent and persistent hematuria with other morphologic changes Category: Medical (3) CKD (chronic kidney disease) stage 3, GFR 30-59 ml/min: Code(s): N18.30 - Chronic kidney disease, stage 3 unspecified Category: Medical Qualifiers: Chronic kidney disease stage 3 subtype: stage 3a (GFR 45-59) Qualified Code(s): N18.31 - Chronic kidney disease, stage 3a (4) Proteinuria: Code(s): R80.9 - Proteinuria, unspecified Category: Medical Qualifiers: Proteinuria type: other Qualified Code(s): R80.8 - Other proteinuria Tereza Brady has biopsy proven IgA nephropathy. She has H/O significant proteinuria. She has gained significant weight. She needs to lose weight and if she is unsuccessful she should be referred to weight management program in [facility]. She is on DENNY-inhibitor. She has a history of a right renal mass. She needs follow-up MRI. She needs to maintain good hydration, avoid nonsteroidal anti-inflammatory medications along with a low-sodium diet. She should be consistent in taking fish oil capsules. She needs MRI of her kidneys for follow up of her renal mass. She has seen Urology. She is tolerating statins. She was given Jardiance which she developed allergy. She can be given Farxiga instead. I have ordered follow-up blood work and urine studies. Follow-up given Orders: Orders Creatinine 3 Months I10 - Essential (primary) hypertension, N02.8 - Recurrent and persistent hematuria with other morphologic changes, N18.31 - Chronic kidney disease, stage 3a, R80.8 - Other proteinuria Blood Urea Nitrogen 3 Months I10 - Essential (primary) hypertension, N02.8 - Recurrent and persistent hematuria with other morphologic changes, N18.31 - Chronic kidney disease, stage 3a, R80.8 - Other proteinuria Electrolytes 3 Months I10 - Essential (primary) hypertension, N02.8 - Recurrent and persistent hematuria with other morphologic changes, N18.31 - Chronic kidney disease, stage 3a, R80.8 - Other proteinuria Protein Creatinine Ratio, Ur 3 Months I10 - Essential (primary) hypertension, N02.8 - Recurrent and persistent hematuria with other morphologic changes, N18.31 - Chronic kidney disease, stage 3a, R80.8 - Other proteinuria Coding Level of Care Code Est Pt Level 4 (55720) Diagnoses Primary hypertension I10 Hypertension type: primary hypertension IgA nephropathy N02.8 Stage 3a chronic kidney disease N18.31 Chronic kidney disease stage 3 subtype: stage 3a (GFR 45-59) Other proteinuria R80.8 Proteinuria type: other
--- OUTSIDE RECORDS SUMMARY | 2024-12-07 11:25 | XMS_ITS | Encounter Summary ---
Author Organization [employer] Address [address] [facility] [address] [place] [address] Care Team Providers Care Subassembly Assembler Name Role Phone Niki Allen Primary Care Provider [phone] Reason for Visit * Reason Onset Date Comments Call Back Request 04/18/2023 Encounter Details Date Type Department Care Team ([facility] st Contact Info) Description 04/18/2023 Telephone [facility] MEDICINE [address] [place], [place] [phone] Niki Allen ANP [address] [place], [place] [phone] Call Back Request Social History Tobacco Use [...] notes were fax over same day 04/17/2023, Asphalt Heater Tender transferred over to HIM to verify if notes were received. Please contact Yamila at [phone] documented in this encounter Plan of Treatment Upcoming Encounters Date Type Department Care Team (Late st Contact Info) Description 03/08/2025 1:45 PM EDT Office Visit [facility] MEDICINE [address] [place] [address] Niki Allen ANP [address] [place] [address] documented as of this encounter Visit Diagnoses Not on filedocumented in this encounter Care Teams Subassembly Assembler Relationship Specialty Start Date End Date Niki Allen ANP [address] [place] [address] PCP - General Family Medicine 07/30/20 documented as of this encounter
[2024-12-07 11:26] VITALS: BP 130/60; PULSE 98; O2SAT 97; BMI 33.3
== END 2024-12-07 11:43 | disposition home or self-care (01) ==
LOC: HO.HKA 11:00
PROVIDERS: PCP Nurse Practitioner Primary Care; Visit Provider Internal Medicine Nephrology
DX: I10 Essential (primary) hypertension (principal); N02.8 Recurrent and persistent hematuria with other morphologic changes; N18.31 Chronic kidney disease, stage 3a; R80.8 Other proteinuria
CPT/HCPCS: 99214

== ENCOUNTER 2024-12-10 11:33 | Outpatient (REF) | payer OTHER, SELFPAY ==
--- OUTSIDE RECORDS SUMMARY | 2024-12-11 13:18 | XMS_ITS | Encounter Summary ---
Author Organization [employer] Address [address] [facility] 7[address] [place] [address] Care Team Providers Care Rn Document Improvement Name Role Phone Niki Allen Primary Care Provider [phone] Reason for Visit * Reason Onset Date Comments Call Back Request 04/18/2023 Encounter Details Date Type Department Care Team ([facility] st Contact Info) Description 04/18/2023 Telephone [facility] MEDICINE [address] [place], [place] [phone] Niki Allen ANP [address] [place], [place] [phone] Call Back Request Social History Tobacco Use [...] notes were fax over same day 04/17/2023, Axle Bearing Polisher transferred over to HIM to verify if notes were received. Please contact Yamila at [phone] documented in this encounter Plan of Treatment Upcoming Encounters Date Type Department Care Team (Late st Contact Info) Description 03/08/2025 1:45 PM EDT Office Visit [facility] MEDICINE [address] [place] [address] Niki Allen ANP [address] [place] [address] documented as of this encounter Visit Diagnoses Not on filedocumented in this encounter Care Teams Rn Document Improvement Relationship Specialty Start Date End Date Niki Allen ANP [address] [place] [address] PCP - General Family Medicine 07/30/20 documented as of this encounter
== END 2024-12-10 11:34 | disposition home or self-care (01) ==
LOC: HO.HHCLNP 11:33
PROVIDERS: Visit Provider Internal Medicine
DX: N30.01 Acute cystitis with hematuria (principal); R82.71 Bacteriuria; B96.29 Other Escherichia coli [E. coli] as the cause of diseases classified elsewhere; Z16.11 Resistance to penicillins; Z16.12 Extended spectrum beta lactamase (ESBL) resistance
CPT/HCPCS: 87086; 87088; 87186

== ENCOUNTER 2024-12-17 14:19 | Outpatient (AMB) | payer OTHER, SELFPAY ==
--- NOTE | 2024-12-17 14:28 | A.OFFVIS_ITS ---
Intake Visit Reasons: right knee Euflexxa gel injection Intake Note: Caitlyn is a 44 year old female who presents today for a right knee Euflexxa injection #3. Allergies pork derived (porcine) (Pork derived (porcine)) Allergy (Intermediate, Verified 12/17/24 14:29) HIVES/STOMACH PAIN/THROAT CLOSES ibuprofen (From Motrin) Allergy (Mild, Verified 12/17/24 14:29) GI UPSET aspirin Allergy (Unknown, Verified 12/17/24 14:29) Unknown red dye Allergy (Verified 12/17/24 14:29) Unknown Motrin Allergy (Unknown, Uncoded 12/17/24 14:29) Unknown pork Allergy (Unknown, Uncoded 12/17/24 14:29) Unknown jardience Adverse Reaction (Uncoded 12/17/24 14:29) Hives Medication List - Last Reconciled 12/17/24 by Peri Reno PA-C albuterol sulfate 90 mcg/actuation (ProAir HFA) 2 puffs inhalation QID PRN fluticasone propion-salmeterol 250-50 mcg/dose (Advair Diskus) 1 inh inhalation BID hydralazine 50 mg PO BID hydroxyzine HCl 50 mg PO BID lisinopril 20 mg (2 x 10 mg) PO DAILY loratadine (Claritin) 10 mg PO DAILY melatonin 5 mg PO BEDTIME PRN metformin 500 mg PO BID nicotine (polacrilex) 2 mg PO NEEDED nitroglycerin 0.4 mg sublingual Q5M PRN MDD 3 omega 5-bvz-hyy-fish oil 1,000 (120-180) mg (Fish Oil) 2 caps PO DAILY 90 days pantoprazole 40 mg PO DAILY rosuvastatin 5 mg PO DAILY sertraline 100 mg PO DAILY spironolactone 25 mg PO DAILY 90 days trazodone 100 - 200 mg PO BEDTIME verapamil ER 180 mg PO BID HPI HPI right knee Euflexxa gel injection : Details: 44-year-old female returns to the office today for her 3rd Euflexxa injection right knee. She states she is received good relief thus far with the ability to ambulate without limping. [facility] Medical History IgA nephropathy Cancer of left kidney Migraine headache Asthma Hypertension Myocardial infarction IgA nephropathy Surgical History Morbid obesity H/O partial nephrectomy H/O right knee surgery H/O: hysterectomy Family History Mother IgA nephropathy Breast cancer Cancer of kidney CVA (cerebral vascular accident) Maternal Uncle Tongue cancer Social History Household Members: Family Housing: House Do you presently have visiting nurse or other home services: No Alcohol intake: never Comment: sleeping Cigarette Packs Per Day: 1 Cigarettes Per Day: 20.0 service: No Current occupational status: employed Review of Systems Const All systems reviewed & are unremarkable except as noted in HPI and below Physical Exam Const General: cooperative and no acute distress Orientation/consciousness: patient oriented x3 Resp Effort & Inspection: normal respiratory effort and able to speak in complete sentences Cardio Peripheral pulses: Peripheral pulses 2+ throughout Neuro General: patient oriented x3 Extrem Other: Right knee mild effusion. Crepitus with ROM. ROM 0-90 degrees. Tenderness to palpation over the medial joint line. NVI. Office Procedures AMB Joint Injection/Aspiration Joint Injection/Aspiration Details: #3 euflexxa Primary Site: right knee Prep: site was prepped using aseptic technique, ethochloride spray was applied and injection warnings given Injected: in the joint Approach Used: anterolateral Procedure: The patient tolerated the procedure well Coding 33013 - Glenohumeral/Tronchanteric Bursa/Intraarticular Procedure code (CPT) selection complete Assessment & Plan Assessment & Plan (1) Osteoarthritis of right knee: Code(s): M17.11 - Unilateral primary osteoarthritis, right knee Category: Medical Plan: Plan was to proceed with gel injection today. # 3 euflexxa Injection performed today which the patient tolerated well. She will rest ice and use anti-inflammatories as needed for the next several days. She will see us back prn . Coding Level of Care Code Procedure Only Diagnoses Osteoarthritis of right knee M17.11 CPT Codes Coding - Joint 7: 96252 - Glenohumeral/Tronchanteric Bursa/Intraarticular ([id number])
--- OUTSIDE RECORDS SUMMARY | 2024-12-17 14:49 | XMS_ITS | Clinical Summary ---
Author Organization [facility] Address [address] [place] [address] Phone Care Team Providers Care Yardage Tufting Machine Operator Name Role Phone Tiffany Niki Perez NP Primary Care Provider [phone] Allergies Active Allergy Reactions Criticality Noted Date [...] (Season Ended) 2025 Insurance Medicaid [place] Medicaid [place] Care Teams Yardage Tufting Machine Operator Relationship Specialty Start Date End Date Niki Allen NP PCP - General Nurse Practitioner 01/13/22
--- OUTSIDE RECORDS SUMMARY | 2024-12-17 14:49 | XMS_ITS | Clinical Summary ---
Author Organization [address] [facility] Address [address] [place] [address] Phone Care Team Providers Care Wireless Construction Manager Name Role Phone Niki Allen NP Primary Care Provider [phone] Allergies Active Allergy Reactions Criticality Noted Date [...] Type 2 diabetes mellitus wit h hyperlipidemia [place] [place], [facility] V28) 02/13/2024 Overview (07/19/2024): new dx 01/2024, metformin 500mg BID, lantus 10 units with plan to increase Cigarette nicotine dependence without complicati on 08/15/2023 Mixed hyperlipidemia 08/15/2023 Hypoxia 12/08/2022 Pulmonary hypertension ([facility] V24, [facility] V28 ) 12/08/2022 Overview (07/19/2024): Follows w/ [facility] Cards BP meds: Verapamil [...] Nephrectomy Malignant tumor of kidney pa renchyma [place] [place] [facility] [place] 01/28/2014 Overview (07/19/2024): Renal Carcinoma Immunizations [...] AM EDT Office Visit Bariatric Surgery - [place] [address] [facility] [address] [place] [address] Liv Cartagena PA [address] [facility] [address] [place] [address] Health Maintenance Due Date Last Done Comments [...] - [place] [employer] Care Teams Wireless Construction Manager Relationship Specialty Start Date End Date Niki Allen NP [address] [place] [phone] PCP - General 07/19/24
--- OUTSIDE RECORDS SUMMARY | 2024-12-17 14:49 | XMS_ITS | Encounter Summary ---
Author Organization [employer] Address [address] [facility] [address] [place] [address] Care Team Providers Care Workers' Compensation Hearings Officer Name Role Phone Niki Allen Primary Care Provider [phone] Reason for Visit * Reason Onset Date Comments Call Back Request 04/18/2023 Encounter Details Date Type Department Care Team ([facility] st Contact Info) Description 04/18/2023 Telephone [facility] MEDICINE [address] [place], [place] [phone] Niki Allen ANP [address] [place], [place] [phone] Call Back Request Social History Tobacco Use [...] Miscellaneous Notes * Telephone Encounter - Latisha Lgaunas - 04/18/2023 1:26 PM EDT Tc from Yamila with [facility] requesting to speak with a member from the Green team in regardsto pt. Yamila morton pt was sent to ER due to a Opt Nerve Swelling, states visit was 04/17/[address] Li. Also inform Visits notes were fax over same day 04/17/2023, Molasses And Caramel Operator transferred over to HIM to verify if notes were received. Please contact Yamila at [phone] documented in this encounter Plan of Treatment Upcoming Encounters Date Type Department Care Team ([facility] st Contact Info) Description 12/19/2024 11:15 AM EDT Office Visit [facility] MEDICINE [address] [place] [phone] Mar Hancock MD [address] [place] [phone] 03/08/2025 1:45 PM EDT Office Visit [facility] MEDICINE [address] [place] [phone] Niki Allen ANP [address] [place] [phone] documented as of this encounter Visit Diagnoses Not on filedocumented in this encounter Care Teams Workers' Compensation Hearings Officer Relationship Specialty Start Date End Date Niki Allen ANP [address] [place] [phone] PCP - General Family Medicine 07/30/20 documented as of this encounter
== END 2024-12-17 15:03 | disposition home or self-care (01) ==
PROVIDERS: PCP Nurse Practitioner Primary Care; Visit Provider Physician Assistant
DX: M17.11 Unilateral primary osteoarthritis, right knee (principal)
CPT/HCPCS: 20610

== ENCOUNTER → 2024-12-17 14:19 | Outpatient (BNVA) | payer OTHER, SELFPAY | PROVIDERS: PCP Nurse Practitioner Primary Care; Visit Provider Physician Assistant | DX: M17.11 Unilateral primary osteoarthritis, right knee (principal) | CPT/HCPCS: 20610; J7323 ==

== ENCOUNTER 2025-03-13 13:13 | Outpatient (REF) | payer OTHER, SELFPAY ==
--- OUTSIDE RECORDS SUMMARY | 2025-03-08 13:45 | XMS_ITS | Encounter Summary ---
Author Organization [employer] Address [address] [place] [address] 7 [place] [address] Care Team Providers Care Diving Coach Name Role Phone Chapo Dial Primary Care Provider [phone] Reason for Visit * Reason Comments Annual Exam Has been having head aches Encounter Details Date Type Department Care Team (Latest Contact Info) Description 03/08/2025 1:45 PM EDT Office Visit [facility] [address] [place], [place] [phone] Chapo Dial ANP [address] [place] [address] Healthcare maintenance (Primary Dx); Type 2 diabetes mellitus with hyperlipidemia (CMS/HCC) ([facility]/HCC); Benign essential hypertension; Pulmonary hypertension (CMS/HCC); Mild [...] Follows w/ Dr. Patino and Jing De FIELD CASHIER for Cardiology Follows w/ [facility] Pulm for DIANA and nocturnal hypoxia Acute Concerns: HTN: is out of hydralazine. Having a hard time keeping track of her meds being at different pharmacies. She will consolidate here. Had insurance issues so was trying to minimize cost. Needs new BP machine for home use. End of this mo seeing wt loss specialist in [place]. Cannot drink protein shakes d/t nephropathy. Renal [...] Diagnoses and all orders for this visit: [facility] maintenance Eye and severiano is eye [...] 1 week Medications Ordered Prior to Encounter[4] Cambodian Translation: Patient is bilingual and declines translation [...] IR LUMBAR PUNCTURE PARTIAL NEPHRECTOMY Left RCC, 2011 TOTAL ABDOMINAL HYSTERECTOMY 2013 endometrial ca [3] [...] 100 each 11 Blood Glucose Monitoring Suppl (Plan Me UpStyle Bryan Lite) w/Device kit Use to test blood [...] by mouth in the morning. Spacer/Aero-Holding Chambers (Radhahamber Trish) misc 1 each every 4 (four) [...] Care Team (Late st Contact Info) Description 03/15/2025 11:[address] [facility] [address] [place] [phone] 04/11/2025 11:15 AM EDT Office Visit [facility] [address] [place] [phone] Chapo Dial ANP [address] [place] [address] Scheduled Orders Name Type Priority Associated Diagnoses Orde r Schedule Lipid Panel, Standard Lab Routine Type 2 diabetes mellitus with hyperlipidemia (CMS/HCC) ([facility]/HCC) Expected: 03/11/2025 (Approximate), Expires: 03/11/2026 Albumin, Random Urine W/Creatinine Lab Routine Type 2 diabetes mellitus with hyperlipidemia (CMS/HCC) (CMS/HCC) Expected: 03/11/2025 (Approximate), Expires: 03/11/2026 Comprehensive Metabolic Panel Lab Routine Type 2 diabetes mellitus with hyperlipidemia (CMS/HCC) (CMS/HCC) Expected: 03/11/2025 (Approximate), Expires: 03/11/2026 documented as of this encounter Procedures Procedure Name Priority Date/Time Associated Diagnosis Comments POCT GLYCATED HEMOGLOBIN, TOTAL Routine 03/08/2025 1:51 PM EDT Type 2 diabetes mellitus with hyperlipidemia (CMS/HCC) (CMS/HCC) POCT GLUCOSE Routine 03/08/2025 1:49 PM EDT Type 2 diabetes mellitus with hyperlipidemia (CMS/HCC) ([facility]/HCC) documented in this encounter Results * (ABNORMAL) POCT Hgb A1c (03/08/2025 1:51 PM EDT) Hemoglobin A1C 6.4(A) 4.0 - 5.7 % QC Media Lot # [id number] Lot# Expiration Date [id number] Blood 03/08/2025 1:51 PM EDT Chapo CORRALES POINT OF CARE TEST ENTER/EDIT OR DERABLES Final Result * POCT Glucose (03/08/2025 1:49 PM EDT) Glucose Blood, POC 130 60 - 200 mg/dL QC Media Lot # [id number] Lot# Expiration Date [id number] Blood Capillary blood specimen / Unknown 03/08/2025 1:49 PM EDT Chapo CORRALES POINT OF CARE TEST ENTER/EDIT OR DERABLES Final Result documented in this encounter Visit Diagnoses Diagnosis Healthcare maintenance- Primary Type 2 diabetes mellitus with hyperlipidemia (CMS/HCC) ([facility]) Benign essential hypertension Essential hypertension, benign Pulmonary hypertension ([facility]) Other chronic pulmonary heart diseases Mild persistent [...] documented as of this encounter Care Teams Diving Coach Relationship Specialty Start Date End Date Chapo Dial ANP [address] [place] [address] PCP - General Family Medicine 07/30/20 documented as of this encounter
[2025-03-13 15:09] LABS: Anion Gap 10 (12-20); Blood Urea Nitrogen 16 mg/dL (9-16); Carbon Dioxide 28 mmol/L (22-29); Chloride 105 mmol/L (96-108); Estimated Glomerular Filt Rate 39; Potassium 3.9 mmol/L (3.3-5.1); Sodium 139 mmol/L (135-145)
--- OUTSIDE RECORDS SUMMARY | 2025-03-13 15:38 | XMS_ITS | Encounter Summary ---
Author Organization [employer] Address [address] [place] [address] 7 [place] [address] Care Team Providers Care Ceramic Tile Mechanic Name Role Phone Niki Allen Primary Care Provider [phone] Reason for Visit * Reason Comments Med Refill Encounter Details Date Type Department Care Team ([facility] st Contact Info) Description 03/08/2025 Refill [facility] [address] [place], [place] [phone] Niki Allen ANP [address] [place] [address] Type 2 diabetes mellitus with hyperlipidemia ([facility]/HCC) ([facility]) Social History Tobacco Use Types Packs/Day Years [...] Info) Description 03/15/2025 11:30 AM EDT Telemedicine [address] [phone] 04/11/2025 11:15 AM EDT Office Visit [address] [address] Niki Allen ANP [address] [place] [phone] documented as of this encounter Visit Diagnoses Diagnosis Type 2 diabetes mellitus with hyperlipidemia (CMS/HCC) (CMS/HCC) documented in this encounter Additional Health Concerns Assessment Noted Time PHQ-9 Depression Total Score: 6 03/08/20 25 3:20 PM EDT documented as of this encounter Care Teams Ceramic Tile Mechanic Relationship Specialty Start Date End Date Niki Allen ANP [address] [place] [phone] PCP - General Family Medicine 07/30/20 documented as of this encounter
--- OUTSIDE RECORDS SUMMARY | 2025-03-13 15:38 | XMS_ITS | Encounter Summary ---
Author Organization [employer] Address [address] [place] [address] 7[address] [place] [address] Care Team Providers Care Tag Maker Name Role Phone Niki Allen ANTONI Primary Care Provider [phone] Encounter Details Date Type Department Care Team (Latest Contact Info) Description 03/08/2025 Travel Social History Tobacco Use Types Packs/Day [...] AM EDT documented as of this encounter Functional Status * Over the [...] at all 03/08/2025 3:20 PM EDT Zeny aLcy [place] * Patient Health Questionnaire-9 Score Answer [...] Trouble relaxing 1 03/08/2025 3:21 PM EDT Carmina Allen MA Being so restless that it is [...] Lacy MA documented as of this encounter Plan of Treatment Upcoming Encounters Date Type Department Care Team (Late st Contact Info) Description 03/15/2025 11:30 AM EDT Telemedicine [facility] [address] [place] [phone] 04/11/2025 11:15 AM EDT Office Visit [facility] [address] [place] [address] Niki Allen ANP [address] [place] [address] documented as of this encounter Visit Diagnoses Not on filedocumented in this encounter Additional Health Concerns Assessment Noted Time PHQ-9 Depression Total Score: 6 03/08/20 25 3:20 PM EDT documented as of this encounter Care Teams Tag Maker Relationship Specialty Start Date End Date Niki Allen ANP [address] [place] [address] PCP - General Family Medicine 07/30/20 documented as of this encounter
--- OUTSIDE RECORDS SUMMARY | 2025-03-13 15:38 | XMS_ITS | Encounter Summary ---
Author Organization [employer] Address [address] [place] [address], [place] [address] Care Team Providers Care Director Of Enterprise Architecture Name Role Phone Niki Allen Primary Care Provider [phone] Reason for Visit * Reason Onset Date Comments Call Back Request 04/18/2023 Encounter Details Date Type Department Care Team ([facility] st Contact Info) Description 04/18/2023 Telephone [facility] [address] [place], [place] [phone] Niki Allen ANP [address] [place], [place] [phone] Call Back Request Social History Tobacco Use [...] 1:26 PM EDT Tc from Yamila with [facility] requesting to speak with a member from the Green team in regardsto pt. Yamila morton pt was sent to ER due to a Opt Nerve Swelling, states visit was 04/17/[address] Li. Also inform Visits notes were fax over same day 04/17/2023, Technical Sales Associate transferred over to HIM to verify if notes were received. Please contact Yamila at [phone] documented in this encounter Plan of Treatment Upcoming Encounters Date Type Department Care Team (Late st Contact Info) Description 03/15/2025 11:30 AM EDT Telemedicine [facility] [address] [place] [phone] 04/11/2025 11:15 AM EDT Office Visit [facility] [address] [place] [address] Niki Allen ANP [address] [place] [address] documented as of this encounter Visit Diagnoses Not on filedocumented in this encounter Care Teams Director Of Enterprise Architecture Relationship Specialty Start Date End Date Niki Allen ANP [address] [place] [phone] PCP - General Family Medicine 07/30/20 documented as of this encounter
--- OUTSIDE RECORDS SUMMARY | 2025-03-13 15:38 | XMS_ITS | Encounter Summary ---
Author Organization [employer] Address [address] [place] [address] 7 [place] [address] Care Team Providers Care Inspector Aide Name Role Phone Tiffany Niki CORRALES Primary Care Provider [phone] Encounter Details Date Type Department Care Team (Late st Contact Info) Description 03/13/2025 Orders Only GENERIC EXTERNAL DATA DEPARTMENT Provider, [...] Info) Description 03/15/2025 11:30 AM EDT Telemedicine [facility] [address] [place] [phone] 04/11/2025 11:15 AM EDT Office Visit [facility] [address] [place] [phone] Niki Allen, ANP [address] [place] [address] documented as of this encounter Procedures Procedure Name Priority Date/Time Associated Diagnosis Comments CREATININE, SERUM Routine 03/13/2025 1:2 6 PM EDT UREA NITROGEN (BUN) Routine 03/13/2025 1 :26 PM EDT ELECTROLYTE PANEL Routine 03/13/2025 1:2 6 PM EDT documented in this encounter Results * (ABNORMAL) Creatinine, Serum (03/13/2025 1:26 PM EDT) Creatinine, Serum 1.46(H) 0.5 - 1.4 mg/dL [facility] Estimated Glomerular Filt Rate 39 [facility] Comment:Chronic Kidney Disea se: Estimated GFR < 60 mL/min/[id number] Kidney Disease: Estimated GFR < 15 mL/min/1.73m2 03/13/2025 1:26 PM EDT 03/13/2025 1:26 PM EDT Generic External Data Provider LAB BLOOD ORDERAB LES Final Result Performing Organization Address [facility] Co de Phone Number [facility] [address] [place] [phone] * BUN (Blood Urea Nitrogen) (03/13/2025 1:26 PM EDT) Urea Nitrogen (BUN) 16 9 - 16 mg/dL [facility] 03/13/2025 1:26 PM EDT 03/13/2025 1:26 PM EDT Generic External Data Provider LAB BLOOD ORDERAB LES Final Result Performing Organization Address [facility] de Phone Number [facility] [address] [place] [phone] * (ABNORMAL) Electrolyte Panel (03/13/2025 1:26 PM EDT) Sodium 139 135 - 145 mmol/L [facility] Potassium 3.9 3.3 - 5.1 mmol/L [facility] Chloride 105 96 - 108 mmol/L [facility] Carbon Dioxide 28 22 - 29 mmol/L [facility] Anion Gap 10(L) 12 - 20 [facility] 03/13/2025 1:26 PM EDT 03/13/2025 1:26 PM EDT Generic External Data Provider LAB BLOOD ORDERAB LES Final Result Performing Organization Address [facility] de Phone Number [facility] [address] [place] [phone] documented in this encounter Visit Diagnoses Not on filedocumented in this encounter Additional Health Concerns Assessment Noted Time PHQ-9 Depression Total Score: 6 03/08/20 25 3:20 PM EDT documented as of this encounter Care Teams Inspector Aide Relationship Specialty Start Date End Date Niki Allen ANP [address] [place] [address] PCP - General Family Medicine 07/30/20 documented as of this encounter
--- OUTSIDE RECORDS SUMMARY | 2025-03-13 15:39 | XMS_ITS | Encounter Summary ---
Author Organization [employer] Address [address] [place] [address] [address] [place] [address] Care Team Providers Care Chin Strap Cutter Name Role Phone Allen Niki CORRALES Primary Care Provider Encounter Details Date Type Department Care Team ([facility] st Contact Info) Description 12/13/2024 Orders Only [facility] [address] [place], [place] [phone] Brianna Barry MD [address] [place] [address] Social History Tobacco Use Types Packs/Day Years [...] with others, in a hotel, in a penitentiary, living outside on the street, on a [...] the past 12 months, has t he [employer], gas, oil or water [employer] threatened to shut off services in your [...] Info) Description 03/15/2025 11:30 AM EDT Telemedicine [facility] [address] [place] [phone] 04/11/2025 11:15 AM EDT Office Visit [facility] [address] [place] [phone] Niki Allen ANP [address] [place] [phone] documented as of this encounter Visit Diagnoses Not on filedocumented in this encounter Additional Health Concerns Assessment Noted Time PHQ-9 Depression Total Score: 5 03/02/20 24 2:07 PM EDT documented as of this encounter Care Teams Chin Strap Cutter Relationship Specialty Start Date End Date Niki Allen ANP [address] [place] [phone] PCP - General Family Medicine 07/30/20 documented as of this encounter
--- OUTSIDE RECORDS SUMMARY | 2025-03-13 15:39 | XMS_ITS | Clinical Summary ---
Author Organization [facility] Address [address] [place] [address] Phone Care Team Providers Care Rn Transplant Name Role Phone Tiffany Niki Perez NP Primary Care Provider [phone] Allergies Active Allergy Reactions Criticality Noted Date [...] of 2 - PCV) 1999 Influenza Vaccine (#1) 2025 Insurance Medicaid [place] Medicaid [place] Care Teams Rn Transplant Relationship Specialty Start Date End Date Niki Allen NP PCP - General Nurse Practitioner 01/13/22
--- OUTSIDE RECORDS SUMMARY | 2025-03-13 15:39 | XMS_ITS | Clinical Summary ---
Author Organization [employer] Address [address] [place] [address] 7 [place] [address] Care Team Providers Care Lean Sensei Name Role Phone Tiffany Chapo CORRALES Primary Care Provider [phone] Allergies Active Allergy Reactions Criticality Noted Date Comments Aspirin Unknown 03/30/2013 Other reaction(s): Other (See Comments) Ibuprofen Other 01/04/2012 Other reaction(s): hives/chest tightness, Other (see comments) No NSAIDS per renal Empagliflozin Hives 08/31/2024 Metronidazole 01/02/2016 Other reaction(s): local itching reaction to cream Pork Allergy Anaphylaxis High 08/07/2020 Red Dye #40 (Allura Red) 08/07/2020 Varenicline 08/17/2016 Other reaction(s): hives & hallucinations Medications nitroglycerin (Nitrostat) 0.4 MG SL tablet TAKE 1 TABLET BY SUBLINGUAL ROUTE NEEDED FOR CHEST PAIN. IF NO RELIEF, GO TO ER 023 Active sertraline (Zoloft) 100 MG tablet Take 100 mg by mouth in the morning. 023 Active omega-3 (Fish Oil) 1000 MG capsule Take 1,000 mg by mouth. 016 Active hydrOXYzine pamoate (Vistaril) 50 MG capsule Take 1 capsule by mouth if needed in the morning, at noon, and at bedtime for anxiety or sleep. 023 Active Melatonin Maximum Strength 5 MG tablet TAKE 1 TO 2 TABLETS BY MOUTH AT BEDTIME NEEDED 023 Active spironolactone (Aldactone) 25 MG tablet Take 0.5 tablets by mouth 1 (one) time each day. Active nicotine polacrilex (Nicorette) 2 MG gumIndications:C ontinuous dependence on cigarette smoking CHEW 1 EACH (2 MG) IF NEEDED FOR SMOKING CESSATION. 110 each 2 024 Active triamcinolone (Kenalog) 0.1 % creamIndications :Rash APPLY TOPICALLY 2 TIMES DAILY FOR UP TO 28 DAYS 30 g 1 024 Active pen needle 32G x 4 mm misc Use to inject Lantus once per day 100 each 12 024 Active pantoprazole (ProtoNix) 40 MG EC tabletIndication s:Heartburn TAKE 1 TABLET BY MOUTH EVERY DAY IN THE MORNING 90 tablet 1 Active albuterol (Ventolin HFA) 108 (90 Base) MCG/ACT inhalerIndicatio ns:Mild persistent asthma with acute exacerbation Inhale 2 puffs Every 4-6 hours as needed for wheezing or shortness of breath. 18 g 3 024 Active Spacer/Aero-Hold ing Chambers (OptiChamber Trish) misc 1 each every 4 (four) hours if needed (asthma). 1 each 024 Active FREESTYLE LITE test stripIndications :Type 2 diabetes mellitus with hyperlipidemia (CMS/HCC) (CMS/[facility]) Use to test blood sugar 3 times daily 100 each 025 2025 Active Lancets miscIndications: Type 2 diabetes mellitus with hyperlipidemia (CMS/HCC) (CMS/HCC) Use to test blood sugar 3 times daily 100 each Active Alcohol Swabs 70 % padsIndications: Type 2 diabetes mellitus with hyperlipidemia (CMS/HCC) (CMS/HCC) Use to test blood sugar 3 times daily 100 each 025 Active Blood Glucose Monitoring Suppl (FreeStyle Whiteside Lite) w/Device kitIndications:T ype 2 diabetes mellitus with hyperlipidemia (CMS/HCC) (CMS/HCC) Use to test blood sugar 3 times daily 1 kit 025 Active loratadine (Claritin) 10 MG tabletIndication s:Non-seasonal allergic rhinitis due to other allergic trigger,Acute non-recurrent sinusitis, unspecified location Take 1 tablet (10 mg) by mouth Once per day. As needed 90 tablet 025 Active EPINEPHrine (Epipen) 0.3 MG/0.3ML injection syringeIndicatio ns:Food allergy INJECT INTRAMUSCULARLY DIRECTED ON PACKAGE AND GO TO EMERGENCY ROOM NEEDED FOR ANAPHYLAXIS, CALL 911 AFTER USE 2 each 1 025 Active fluticasone (Flonase) 50 MCG/ACT nasal sprayIndications :Acute non-recurrent sinusitis, unspecified location INSTILL 1 SPRAY IN EACH NOSTRIL ONCE DAILY 16 g 2 025 Active verapamil SR (Calan SR) 180 MG ER tabletIndication s:Essential hypertension TAKE 2 TABLETS BY MOUTH EVERY DAY WITH FOOD 180 tablet 1 025 Active rosuvastatin (Crestor) 5 MG tabletIndication s:Mixed hyperlipidemia TAKE 1 TABLET BY MOUTH EVERY DAY AT BEDTIME 30 tablet 5 025 Active metFORMIN (Glucophage) 500 MG tabletIndication s:Type 2 diabetes mellitus with hyperlipidemia (CMS/HCC) ([facility]/HCC) TAKE 1 TABLET BY MOUTH TWICE A DAY 180 tablet 1 025 Active hydrALAZINE (Apresoline) 50 MG tabletIndication s:Benign essential hypertension Take 1 tablet (50 mg) by mouth 2 times daily. 180 tablet 1 025 Active lisinopril 10 MG tabletIndication s:Benign essential hypertension Take 2 tablets (20 mg) by mouth Once per day. 180 tablet 025 Active budesonide-formo terol (Symbicort) 80-4.5 MCG/ACT inhalerIndicatio ns:Mild persistent asthma without complication Take 2 puffs as needed every 4-6 hours for SOB. Rinse mouth with water after use to reduce aftertaste and incidence of candidiasis. Do not swallow. 1 each 1 025 Active traZODone (Desyrel) 100 MG tabletIndication s:Insomnia, unspecified type TAKE 2 TABLETS BY MOUTH AT BEDTIME NEEDED FOR SLEEP 180 tablet 1 025 Active Blood Pressure kitIndications:B enign essential hypertension,Pul monary hypertension (CMS/HCC) 1 kit Once per day. 1 kit 025 Active Blood Pressure kitIndications:P ulmonary hypertension (CMS/HCC),Benign essential hypertension 1 kit in the morning. 1 kit 023 2024 Discontinued( Reorder (will not trigger notification to Pharmacy)) cloNIDine (Catapres) 0.1 MG tablet Take 0.1 mg by mouth 2 times daily. 023 2024 Discontinued( Therapy completed) Advair Diskus 250-50 MCG/ACT aerosol powder Inhale 1 puff 2 times daily. 023 2024 Discontinued( Alternate therapy) hydrALAZINE (Apresoline) 50 MG tablet Take 1 tablet by mouth 2 times daily. 022 2024 Discontinued( Reorder (will not trigger notification to Pharmacy)) insulin glargine (Lantus SoloStar) 100 UNIT/ML penIndications:N ewly diagnosed diabetes ([facility]) Inject 10 Units under the skin at bedtime. 3 mL 2 024 2024 Discontinued( Therapy completed) lisinopril 10 MG tabletIndication s:Benign essential hypertension Take 2 tablets (20 mg) by mouth Once per day. 60 tablet 024 2024 Discontinued( Reorder (will not trigger notification to Pharmacy)) metFORMIN (Glucophage) 500 MG tabletIndication s:Type 2 diabetes mellitus with hyperlipidemia ([facility]/HCC) ([facility]) TAKE 1 TABLET BY MOUTH TWICE A DAY 180 tablet 1 025 2024 Discontinued traZODone (Desyrel) 100 MG tabletIndication s:Insomnia, unspecified type TAKE 1 TO 2 TABLETS BY MOUTH AT BEDTIME NEEDED FOR SLEEP 180 tablet 1 025 2024 Discontinued( Reorder (will not trigger notification to Pharmacy)) diphenhydrAMINE (BENADryl) 25 MG tabletIndication s:Urticaria Take 1 tablet 25 mg every 6 hours as needed for itching. 40 tablet 025 2024 Discontinued( Therapy completed) Hospital, Clinic, or Other Facility Administered Medication Ordered Dose Route Frequency Start Date End Date Status Insulin Lispro solution 10 UnitsIndications:New ly diagnosed diabetes ([facility]) 10 Units IJ Once Daily 02/01/2024 03/11/2025 Discon tinued Active Problems Problem Noted Date Diagnosed Date Status post total hysterectomy 01/21/2025 History of endometrial cancer 08/03/2024 Overview (08/03/2024): s/p total hysterectomy 2012 Acute non-recurrent sinusitis 07/18/2024 Assessment & Plan (07/18/2024 11:20 AM EST): -discontinue OTC nasal spray -Augmentin x 10 days -continue fluticasone nasal spray -start loratadine -[place] environmental triggers changes -advise may take [...] Plan: BG monitor to be purchased at [facility] (better cost d/t lack of current insurance). [...] Encounters Date Type Department Care Team Description 03/13/2025 Orders Only GENERIC EXTERNAL DATA DEPARTMENT Provider, Generic External Data 03/08/2025 1:45 PM EDT Office Visit [facility] [address] [place] [phone] Chapo Dial ANP Healthcare maintenance (Primary Dx); Type 2 diabetes mellitus with hyperlipidemia (CMS/HCC) (CMS/HCC); Benign essential hypertension; Pulmonary hypertension (CMS/HCC); Mild persistent asthma without complication; Insomnia, unspecified type; Class 3 severe obesity with serious comorbidity and body mass index (BMI) of 40.0 to 44.9 in adult; Cigarette nicotine dependence without complication; IgA nephropathy; Asymptomatic hypertensive urgency 03/08/2025 Travel 03/08/2025 Refill [facility] [address] [place] [address] Chapo Dial ANP Type 2 diabetes mellitus with hyperlipidemia (CMS/HCC) ([facility]) 03/07/[address] [phone] Chapo Dial ANP chart prep 03/01/2025 Patient Outreach [address] [phone] Chapo Dial ANP Pre-visit Planning (SDOH screening negative and Tobacco screening negative) 01/17/[address] [address] Chapo Dial ANP Mixed hyperlipidemia 12/19/[address] [address] Chapo Dial ANP Appointment Request 12/18/[address] [phone] Mar Hancock MD chart prep 12/14/2024 Results Follow-Up [facility] [address] [place] [address] Ilana Childers RN Culture, Urine, Routine, POCT urinalysis dipstick manually resulted 12/13/2024 Orders Only [facility] [address] [place] [address] Brianna Barry MD from Last 3 Months Immunizations Immunization Administration [...] disease Mother Umm Valverde Hypertension Mother Umm Vavlerde Kidney disease Mother Umm Valverde Cancer Mother's [...] t he electric, gas, oil or water [employer] threatened to shut off services in your [...] 20 03/08/2025 1:47 PM EDT Oxygen Saturation 97% 12/10/2024 5:07 PM EDT Inhaled Oxygen Concentration - - Weight 114 kg (251 lb) 03/08/2025 1:47 PM EDT Height 165.1 cm (5' 5 ) 03/08/2025 1:47 PM EDT Body Mass Index 41.77 03/08/2025 1:47 PM EDT Plan of Treatment Upcoming Encounters Date Type Department Care Team (Late st Contact Info) Description 03/15/2025 11:30 AM EDT Telemedicine [facility] [address] [place] [phone] 04/11/2025 11:15 AM EDT Office Visit [facility] [address] [place] [phone] Chapo Dial, ANTONI [address] [place] [address] Health Maintenance Due Date Last Done Comments HIV Screening 1980 Diabetes: Foot Exam 1990 Eye Exam 1990 HPV Vaccines (1 - 3-dose series) 1995 Hepatitis C Screening 1998 Lipid Panel 11/24/2024 11/25/2023, 11/09/2022 COVID-19 Vaccine ( season) 2025 11/04/2022, 11/28/2020, 10/31/2020 Influenza Vaccine (#1) 2025 , 05/28/2019, 05/22/2018, Additional history exists Mammogram 06/22/2025 06/22/2024, 08/2024, 06/22/2024, Additional history exists Diabetes: Urine Protein Screening 08/06/2025 08/06/2024, 07/29/2023, 09/09/2022 Diabetes: Hemoglobin A1C 09/05/2025 025, 06/01/2024, 02/13/2024, Additional history exists SDOH Screening 03/01/2026 03/01/2025 Alcohol/Substance Use Screening 03/08/2026 03/08/2025 Depression Screening 03/08/2026 03/08/2025, 03/08/20 25 Disability Screening 03/08/2026 03/08/2025 Tobacco Screening 03/08/2026 03/08/2025 Family Planning (PISQ) 03/11/2026 03/11/2025 Zoster Vaccines (1 of 2) 2030 DTaP/Tdap/Td Vaccines (3 - Td or Tdap) 02/24/2031 02/24/2021, 12/31/2010, 04/02/2002 RSV Patients and Patients Aged 60 years or older (1 - 1-dose 75+ series) 2055 Hepatitis B Vaccines Completed 01/08/1998, 08/14/1997, 04/17/1997 Cervical Cancer Screening Discontinued HPV/Cotest Discontinued 11/18/2015 Pap Smear Discontinued 11/18/2015 Pneumococcal Vaccine: Pediatrics (0 to 5 Years) and At-Risk Patients (6 to 49) Years Completed 08/03/2024, 11/01/2018, 12/31/2010, Additional history exists [...] PANEL Routine 03/13/2025 1:2 6 PM EDT POCT GLYCATED HEMOGLOBIN, TOTAL Routine 03/08/2025 1:51 PM EDT Type 2 diabetes mellitus with hyperlipidemia ([facility]/HCC) ([facility]) POCT GLUCOSE Routine 03/08/2025 1:49 PM EDT Type 2 diabetes mellitus with hyperlipidemia ([facility]/HCC) ([facility]) CULTURE, URINE, ROUTINE Routine 12/11/2024 12:00 AM EDT Acute cystitis with hematuria PROTEIN CREATININE RATIO, URINE Routine 08/06/2024 11:22 AM EST BI MAMMOGRAM SCREENING TOMOSYNTHESIS BILATERAL Routine 06/22/2024 2:30 PM EST LIPID PANEL, STANDARD Routine 11/25/2023 1:39 PM EDT HM PAP/HPV Routine 11/18/2015 from Last 3 Months or Most Recently Relevant to Health Maintenance Results * (ABNORMAL) Creatinine, Serum (03/13/2025 1:26 PM EDT) Creatinine, Serum 1.46(H) 0.5 - 1.4 mg/dL [facility] Estimated Glomerular Filt Rate 39 [facility] Comment:Chronic Kidney Disea se: Estimated GFR < 60 mL/min/1.47a3Rriwel Kidney Disease: Estimated GFR < 15 mL/min/1.73m2 03/13/2025 1:26 PM EDT 03/13/2025 1:26 PM EDT Generic External Data Provider LAB BLOOD ORDERAB LES Final Result Performing Organization Address [facility] Co de Phone Number [facility] [address] [place] [phone] * BUN (Blood Urea Nitrogen) (03/13/2025 1:26 PM EDT) Urea Nitrogen (BUN) 16 9 - 16 mg/dL [facility] 03/13/2025 1:26 PM EDT 03/13/2025 1:26 PM EDT Generic External Data Provider LAB BLOOD ORDERAB LES Final Result Performing Organization Address [facility] Co de Phone Number [facility] [address] [place] [phone] * (ABNORMAL) Electrolyte Panel (03/13/2025 1:26 PM EDT) Sodium 139 135 - 145 mmol/L [facility] Potassium 3.9 3.3 - 5.1 mmol/L [facility] Chloride 105 96 - 108 mmol/L [facility] Carbon Dioxide 28 22 - 29 mmol/L [facility] Anion Gap 10(L) 12 - 20 [facility] 03/13/2025 1:26 PM EDT 03/13/2025 1:26 PM EDT Generic External Data Provider LAB BLOOD ORDERAB LES Final Result Performing Organization Address [facility] Co de Phone Number [facility] [address] [place] [phone] * (ABNORMAL) POCT Hgb A1c (03/08/2025 1:51 PM EDT) Hemoglobin A1C 6.4(A) 4.0 - 5.7 % QC Media Lot # [id number] Lot# Expiration Date Blood 03/08/2025 1:51 PM EDT Chapo Dial ANP POINT OF CARE TEST ENTER/EDIT OR DERABLES Final Result * POCT Glucose (03/08/2025 1:49 PM EDT) Glucose Blood, POC 130 60 - 200 mg/dL QC Media Lot # [id number] Lot# Expiration Date , Blood Capillary blood specimen / Unknown 03/08/2025 1:49 PM EDT Chapo Dial ANP POINT OF CARE TEST ENTER/EDIT OR DERABLES Final Result * Culture, Urine, Routine (12/11/2024 12:00 AM EDT) Urine Urine specimen obtained by clean catch procedure / Unknown 12/11/2024 12/11/2024 Comment:[facility] Narrative [facility] - 12/14/2024 9:02 AM EDT Escherichia coli ESBL Note: NOTE: Extended-Spectrum Beta-Lactamase enzyme present Quant > 100,000 cfu/mL Escherichia coli: Ampicillin >=32(R) Escherichia coli: Cefazolin (Urine) >=32(R) Escherichia coli: Cefepime 2(S) Escherichia coli: Ceftriaxone >=64(R) Escherichia coli: Ciprofloxacin 0.5(I) Escherichia coli: Ertapenem <=0.12(S) Escherichia coli: Gentamicin <=1(S) Escherichia coli: Nitrofurantoin <=16(S) Escherichia coli: Trimethoprim/Sulfamethoxazole <=20(S) Specimen Source: Urine clean catch Brianna Barry MD LAB MICROBIOLOGY - GENERAL ORDERABLES Final Result [facility] [address] [place] [phone] * (ABNORMAL) Protein Creatinine Ratio, Urine (08/06/2024 11:22 AM EST) Creatinine, Urine 156.24 mg/dL [facility] Protein, Total, Random Urine 270(H) <12 mg/dL [facility] Protein/Creati nine Ratio, Ur 1.73(H) <0.2 [facility] Comment:The spot urine prote in:creatinine ratio may increase to 0.3during normal . 08/06/2024 11:2 2 AM EST 08/06/2024 11:30 AM EST us Generic External Data Provider LAB URINE ORDERAB LES Final Result [facility] [address] [place] [address] [phone] * BI Mammogram Screening Tomosynthesis Bilateral (06/22/2024 2:30 PM EST) Anatomical Region Laterality Modality Breast Bilateral Mammography 06/22/2024 2:30 PM EST Narrative 07/01/2024 10:13 AM EST [facility] [address] [place] [address] Mammography Report Signed Patient: Caitlyn Hercules V MR#: [id number] : 1980 Acct:[id number] Age/Sex: 44 / F ADM Date: 06/22/24 Loc: HO.MAMMO Attending Dr: Chapo Dial NP Ordering Physician: CHAPO DIAL NP Results: 2Benign Jerson ricardo Date of Service: 06/22/24 Follow Up: 1 Year From Orig inal Mammogram Procedure(s): MM tomosynthesis screening BI Accession Number(s): [id number] cc: CHAPO DIAL NP EXAMINATION: MM SCREENING [...] 07/01/24 1010 DD/ 1430 TD/TT: 06/22/24 1457 Imager: Procedure Note Donotuseinterpreter, Image - 07/01/2024 [facility] [address] [place], [place] [address] Mammography Report Signed Patient: Caitlyn Hercules VMR#: [id number] : 1980Acct:[id number] Age/Sex: 44 / FADM Date: 06/22/24 Loc: ANDREIAO Attending Dr: Chapo Dial NP Ordering Physician: CHAPO DIAL NPResults: 2[facility]ign [facility]erson [facility] Date of Service: 06/22/24Follow Up: 1 Year From Orig inal Mammogram Procedure(s): MM tomosynthesis screening BI Accession Number(s): [id number] cc: CHAPO DIAL NP EXAMINATION: MM SCREENING [...] by: Amy Nino DO 07/01/2024 10:10 AM [facility] Dictated By: Amy Nino DO Signed By: <Electronically signed by Amy Nino DO in OV> 07/01/24 1010 DD/ 1430 TD/TT: 06/22/24 1457 Imager: Chapo CORRALES IMAron BI PROCEDURES Final Result * (ABNORMAL) Lipid Panel, Standard (11/25/2023 1:39 PM EDT) Triglycerides 155(H) <150 mg/dL [facility] Comment:Desirable Triglyceri de: less than 150 mg/dLBorderline High Triglyceride 150-199 mg/dLHigh Triglyceride: 200-499 mg/dLVery High Triglyceride: greater than or equal to 5OO mg/dL Cholesterol 205(H) <200 mg/dL [facility] Comment:Desirable Cholestero l: less than 200 mg/dLBorderline High Cholesterol: 200-239 mg/dLHigh Cholesterol: greater than 239 mg/dL LDL Cholesterol Calculated 119(H) <100 mg/dL [facility] Comment:Desirable LDL: less than 100 mg/dLNear Optimal/Above Optimal LDL: 110- 129 mg/dLBorderline High LDL: 130-159 mg/dLHigh LDL: 160-189 mg/dLVery High LDL: greater than or equal to 190 mg/dL HDL Cholesterol 55 >40 mg/dL [facility] Comment:Desirable HDL: great er than 40 mg/dL Note: This HDL assay may give artificially low results in patients with liver disease. 11/25/2023 1:39 PM EDT 11/25/2023 1:39 PM EDT us Generic External Data Provider LAB BLOOD ORDERAB LES Final Result [facility] [address] [place] [address] [phone] * Hm Pap Smear (11/18/2015) Pap Negative for intraephithelial lesion or malignancy Negative for intraephithelial lesion or malignancy, Other HPV Undetected 11/18/2015 Historical Provider MD HEALTH MAINTENANCE Final Result from Last 3 Months or Most Recently Relevant to Health Maintenance Insurance [employer] PPO Care Teams Lean Sensei Relationship Specialty Start Date End Date Chpao Dial ANP [address] [place] [phone] PCP - General Family Medicine 07/30/20
--- OUTSIDE RECORDS SUMMARY | 2025-03-13 15:39 | XMS_ITS | Encounter Summary ---
Author Organization [employer] [facility] Address [address] [place] [address] Care Team Providers Care Hide Curer Name Role Phone Niki lAlen Primary Care Provider [phone] Encounter Details Date Type Department Care Team (Late st Contact Info) Description 07/12/2022 Orders Only [facility] [address] [place] [phone] Soraida Segundo LPN Social History Tobacco Use [...] Info) Description 03/15/2025 11:30 AM EDT Telemedicine [address] [address] 04/11/2025 11:15 AM EDT Office Visit [address] [address] Niki Allen, ANP [address] [place], [place] [phone] documented as of this encounter Procedures Procedure [...] (04/18/2023 7:37 PM EDT) Color Urine Yellow [facility] Appearance Urine Cloudy [facility] PH 6.5 5.0 - 9.0 [facility] Glucose Urine UA Negative Negative mg/dL [facility] Urine Blood Negative Negative [facility] Specific [place] - Urine 1.020 1.005 - 1.025 [facility] Urine Protein 300 (3+)(A) Neg-Trace mg/dL [facility] Urine Ketones Negative Negative mg/dL [facility] Nitrite Urine Negative Negative [facility] Leukocyte Esterase Urine Negative Negative [facility] RBC Urine 0-2 0 - 2 /HPF [facility] Urine WBC 0-5 0 - 5 /HPF [facility] Urine Squamous Epithelial Cell 11-20 0 - 2 /HPF [facility] Urine Bacteria 2+ None Seen [facility] Hyaline Casts, Urine 3-5 0 - 2 /LPF [facility] 04/18/2023 7:37 PM EDT 04/18/2023 7:40 PM EDT Narrative [facility] - 04/18/2023 7:50 PM EDT [id number], Clean Catch [facility] External Provider LAB URI NE ORDERABLES Final Result Performing Organization Address [facility] de Phone Number [facility] [address] [place] [phone] * Sed Rate by Modified Beverley (04/18/2023 2:12 PM EDT) Pathologist [facility] Erythrocyte Sedimentation Rate 17 0 - 20 MM/HR [facility] Comment:Patients with polycy themia and many hemoglobin abnormalitiesmay have depressed sed rates whereas patients with anemiamay have elevated sed rates. 04/18/2023 2:12 PM EDT 04/18/2023 5:23 PM EDT [facility] External Provider LAB BLO OD ORDERABLES Final Result Performing Organization Address [facility] Phone Number [facility] [address] [place] [phone] * TSH (04/18/2023 2:12 PM EDT) [facility] Thyroid Stimulating Hormone 0.65 0.32 - 4.0 uIU/mL [facility] Comment:TSH 3rd Generation ( [facility]) 04/18/2023 2:12 PM EDT 04/18/2023 2:16 PM EDT Generic External Data Provider LAB BLOOD ORDERAB LES Final Result Performing Organization Address [facility] Co de Phone Number [facility] [address] [place] [address] [phone] * (ABNORMAL) Basic Metabolic Panel (04/18/2023 2:12 PM EDT) Pathologist [facility] Sodium 141 135 - 145 mmol/L [facility] Potassium 3.9 3.3 - 5.1 mmol/L [facility] Chloride 102 96 - 108 mmol/L [facility] Carbon Dioxide 28 22 - 29 mmol/L [facility] Anion Gap 15 12 - 20 [facility] Urea Nitrogen (BUN) 12 9 - 16 mg/dL [facility] Creatinine, Serum 1.23 0.5 - 1.4 mg/dL [facility] Creatinine Clr Calc Pharmacy 77.2 [facility] Comment:Provided height and weight: 165.1 cm,119.748 kg.eGFR (calculated from the MDRD study equation) and eCrCl(calculated from the Cockcroft-Gault equation) are based ondifferent parameters and may not yield comparable results.If eCrCl result is absurd, please check patient'sheight/weight. Estimated Glomerular Filt Rate 48 [facility] Comment:NOTE: For -Am erican individuals, multiply the result by 1.210.Chronic Kidney Disease: Estimated GFR < 60 mL/min/[id number] Kidney Disease: Estimated GFR < 15 mL/min/1.73m2 Glucose 144(H) 60 - 115 mg/dL [facility] Calcium 9.3 8.4 - 10.2 mg/dL [facility] 04/18/2023 2:12 PM EDT 04/18/2023 2:16 PM EDT us Generic External Data Provider LAB BLOOD ORDERAB LES Final Result [facility] [address] [place] [phone] * (ABNORMAL) Hepatic Function Panel (04/18/2023 2:12 PM EDT) Bilirubin, Total 0.4 0.0 - 1.0 mg/dL [facility] Bilirubin, Direct 0.1 0.0 - 0.5 mg/dL [facility] Aspartate Amino Transferase 20 5 - 31 U/L [facility] Alanine Aminotransferase 19 0 - 31 U/L [facility] Total Protein 8.1(H) 6.5 - 8.0 g/dL [facility] Albumin Level 3.9 3.5 - 5.0 g/dL [facility] Alkaline Phosphatase 78 39 - 117 U/L [facility] 04/18/2023 2:12 PM EDT 04/18/2023 2:16 PM EDT us [facility] External Provider LAB BLO OD ORDERABLES Final Result [facility] [address] [place] [phone] * (ABNORMAL) CBC auto differential (04/18/2023 2:12 PM EDT) White Blood Count 10.5 4.8 - 10.8 X10*3/uL [facility] Red Blood Count 4.97 4.20 - 5.50 X10*6/uL [facility] Hemoglobin 13.3 12.0 - 16.0 g/dl [facility] Hematocrit 42.1 37.0 - 47.0 % [facility] Mean Corpuscular Volume 84.7 80.0 - 98.0 fL [facility] Mean Corpuscular Hemoglobin 26.8(L) 27.0 - 33.0 pg [facility] Mean Corpuscular HGB Conc 31.6 31.0 - 35.0 g/dl [facility] Red Cell Distribution Width 17.0(H) 11.0 - 16.0 % [facility] Platelet Count 298 160 - 400 X10*3/uL [facility] Mean Platelet Volume 10.9 9.4 - 12.3 fL [facility] Neutrophils Percent Auto 61.6 45 - 73 % [facility] Imm Gran Pct Auto 0.2 0.0 - 0.4 % [facility] Lymphocytes Percent Auto 28.1 20 - 40 % [facility] Monocytes Percent Auto 8.0 2 - 11 % [facility] Eosinophils Percent Auto 1.2 0 - 4 % [facility] Basophils Percent Auto 0.9 0 - 2 % [facility] NRBC Pct Auto 0.0 0.0 - 0.2 /100WBC [facility] Neutrophils Absolute Auto 6.4 2.0 - 8.3 x10*3/uL [facility] Imm Gran Abs Auto 0.02 0.00 - 0.03 X10*3/uL [facility] Lymphocytes Absolute Auto 2.9 1.2 - 4.9 X10*3/uL [facility] Monocytes Absolute Auto 0.8 0.1 - 1.2 X10*3/uL [facility] Eosinophils Absolute Auto 0.1 0.0 - 0.4 X10*3/uL [facility] Basophils Absolute Auto 0.1 0.0 - 0.2 X10*3/uL [facility] NRBC Abs Auto 0.000 0.0 - 0.012 X10*3/uL [facility] 04/18/2023 2:12 PM EDT 04/18/2023 2:16 PM EDT [facility] External Provider LAB BLO OD ORDERABLES Final Result Performing Organization Address [facility] Co de Phone Number [facility] [address] [place] [phone] * (ABNORMAL) Protein Creatinine Ratio, Urine (09/09/2022 10:57 AM EDT) Creatinine, Urine 49.94 mg/dL [facility] Protein, Total, Random Urine 240(H) <12 mg/dL [facility] Protein/Creati nine Ratio, Ur 4.81(H) <0.2 [facility] Comment:The spot urine prote in:creatinine ratio may increase to 0.3during normal . 09/09/2022 10:5 7 AM EDT 09/09/2022 12:07 PM EDT [facility] External Provider LAB URI NE ORDERABLES Final Result Performing Organization Address [facility] Co de Phone Number [facility] [address] [place] [address] [phone] documented in this encounter Visit Diagnoses Not on filedocumented in this encounter Care Teams Hide Curer Relationship Specialty Start Date End Date Niki Allen ANP [address] [place] [address] PCP - General Family Medicine 07/30/20 documented as of this encounter
--- OUTSIDE RECORDS SUMMARY | 2025-03-13 15:39 | XMS_ITS | Encounter Summary ---
Author Organization [employer] Address [address] [place] [address] 7 [place] [address] Care Team Providers Care Fingerprinter Name Role Phone Niki Allen Primary Care Provider [phone] Reason for Visit * Reason Comments Med Refill Encounter Details Date Type Department Care Team ([facility] st Contact Info) Description 08/16/2023 Refill [facility] [address] [place], [place] [phone] Niki Allen ANP [address] [place], [place] [phone] Mixed hyperlipidemia; Non-seasonal allergic rhinitis due to [...] Info) Description 03/15/2025 11:30 AM EDT Telemedicine [facility] [address] [place] [phone] 04/11/2025 11:15 AM EDT Office Visit [facility] [address] [place] [address] Niki Allen ANP [address] [place] [phone] documented as of this encounter Visit Diagnoses Diagnosis Mixed hyperlipidemia Non-seasonal allergic rhinitis due to other allergic trigger documented in this encounter Care Teams Fingerprinter Relationship Specialty Start Date End Date Niki Allen ANP [address] [place] [phone] PCP - General Family Medicine 07/30/20 documented as of this encounter
--- OUTSIDE RECORDS SUMMARY | 2025-03-13 15:39 | XMS_ITS | Clinical Summary ---
Author Organization [address] [facility] Address [address] [place] [address] Phone Care Team Providers Care Customer Engineer Name Role Phone Niki Allen NP Primary Care Provider [phone] Allergies Active Allergy Reactions Criticality Noted Date [...] Units under the skin at bedtime. 4 Active hydrOXYzine HCL (ATARAX) 50 mg tablet [...] Type 2 diabetes mellitus wit h hyperlipidemia ([facility] [place], [facility] V28) 02/13/2024 Overview (07/19/2024): new dx 01/2024, metformin 500mg BID, lantus 10 units with plan to increase Cigarette nicotine dependence without complicati on 08/15/2023 Mixed hyperlipidemia 08/15/2023 Hypoxia 12/08/2022 Pulmonary hypertension ([facility] [place], [facility] V28 ) 12/08/2022 Overview (07/19/2024): Follows w/ [facility] Cards BP meds: Verapamil [...] Nephrectomy Malignant tumor of kidney pa renchyma ([facility] [place]24, [facility] V28) 01/28/2014 Overview (07/19/2024): Renal Carcinoma Immunizations [...] Upcoming Encounters Date Type Department Care Team ([facility] st Contact Info) Description 04/05/2025 10:30 AM EDT Office Visit Bariatric Surgery - [address] [phone] Liv Cartagena, CITLALY [address] [place] [phone] Health Maintenance Due Date Last Done Comments Breast Cancer Screening 1980 Diabetes: Annual GFR (Glomerular Filtration Rate) 1980 Diabetes: Annual Foot Exam 1990 Diabetes: Annual Retina Eye Exam 1990 Cervical Cancer Screening: Pap Smear 2001 Pneumococcal Vaccine: Pediatrics (0 to 5 Years) and At-Risk Patients (6 to 49 Years) (2 of 2 - PCV) 11/02/2019 11/01/2018, 12/31/2010, 12/31/2010 COVID-19 Vaccine (2 - Moderna risk series) 12/02/2022 11/04/2022 HIV Screening 01/20/2024 Hepatitis C Screening 01/20/2024 Social Influencers of Health Screening 01/20/2024 Depression Screening 06/20/2024 Diabetes: Annual Urine Albumin-Creatinine Ratio (uACR) 07/19/2024 Hypertension/CHF/CAD Annual BMP Blood Test 07/19/2024 Diabetes: Blood Sugar Control Test (HGBA1C) 11/30/2024 06/01/2024 Influenza Vaccine (#1) 2025 , 05/28/2019, 05/22/2018, Additional history exists Cholesterol Screening (Lipid Panel) 11/24/2028 11/25/2023 DTaP,Tdap,and Td Vaccines (4 - Td or Tdap) 02/24/2031 02/24/2021, 12/31/2010, 04/02/2002 RSV Immunization Adult Patients (1 - 1-dose 75+ series) 2055 Hepatitis B Vaccines Completed 01/08/1998, 08/14/1997, 04/17/1997 HIB Vaccines Aged Out No longer eligi [...] to complete this topic Insurance MEDICAID - [place] [employer] Care Teams Customer Engineer Relationship Specialty Start Date End Date Niki Allen NP [address] [place] [phone] PCP - General 07/19/24
[2025-03-13 16:15] LABS: Protein/Creatinine Ratio, Ur 1.08 (<0.2); Total Protein Urine Random 360 mg/dL (<12)
== END 2025-03-13 13:14 | disposition home or self-care (01) ==
LOC: HO.LAB 13:13
PROVIDERS: PCP Nurse Practitioner Primary Care; Visit Provider Internal Medicine Nephrology
DX: I12.9 Hypertensive chronic kidney disease with stage 1 through stage 4 chronic kidney disease, or unspecified chronic kidney disease (principal); N18.31 Chronic kidney disease, stage 3a; R80.8 Other proteinuria
CPT/HCPCS: 36415; 80051; 82565; 82570; 84156; 84520

== ENCOUNTER 2025-03-15 10:16 | Outpatient (AMB) | payer OTHER, SELFPAY ==
--- OUTSIDE RECORDS SUMMARY | 2025-03-08 13:45 | XMS_ITS | Encounter Summary ---
Author Organization [employer] Address [address] [place] [address] 7 [place] [address] Care Team Providers Care Jewish Thought Professor Name Role Phone Chapo Dial Primary Care Provider [phone] Reason for Visit * Reason Comments Annual Exam Has been having head aches Encounter Details Date Type Department Care Team (Latest Contact Info) Description 03/08/2025 1:45 PM EDT Office Visit [facility] [address] [place], [place] [phone] Chapo Dial ANP [address] [place] [address] Healthcare maintenance (Primary Dx); Type 2 diabetes mellitus with hyperlipidemia (CMS/HCC) ([facility]/HCC); Benign essential hypertension; Pulmonary hypertension (CMS/HCC); Mild persistent asthma without complication; Insomnia, unspecified type; Class 3 severe obesity with serious comorbidity and body mass index (BMI) of 40.0 to 44.9 in adult; Cigarette nicotine dependence without complication; IgA nephropathy; Asymptomatic hypertensive urgency Social History Tobacco Use Types Packs/Day Years Used Date Smoking Tobacco: Every Day Cigarettes 0.3 15 Smokeless Tobacco: Never Tobacco Cessation:Ready to Q uit: Not Asked; Counseling Given: Not Answered Alcohol Use Standard Drinks/Week Comments Not Currently 0 (1 standard drink = 0.6 oz pur e alcohol) Alcohol Answer Date Recorded Frequency of Alcohol Consumption Not on file 08/05/2023 Average Number of Drinks Not on file 024 Frequency of Binge Drinking Not on file 07/21 Score 0 08/05/2023 Depression Answer Date Recorded Patient Health Questionnaire-9 Score 6 03/08/2025 Patient Health Questionnaire-9 Score 6 03/08/2025 Last PHQ-9: Questionnaire Data Not on file 0 03/08/2025 Housing Stability Answer Date Recorded What is your housing situation today? I have bubba gonzalez 03/01/[address] you li ve. Do you have problems with any of the following? None of the above 03/01/2025 Food Insecurity Answer Date Recorded Within the past 12 months, y ou worried that your food would run out before you got money to buy more: Never True 03/01/2025 Within the past 12 months,th e food you bought just didn't last and you didn't have enough money to get more: Never True 05/2025 Transportation Answer Date Recorded In the past 12 months, has l ack of transportation kept you from medical appts, meetings, work or from getting things needed for daily living? No 03/01/2025 Utilities Answer Date Recorded In the past 12 months, has t he electric, gas, oil or water company threatened to shut off services in your home? No 03/01/2025 Depression Answer Date Recorded Patient Health Questionnaire-2 Score 2 03/08/2025 Internet Access Answer Date Recorded Internet Access Q1 Yes 03/02/2024 Internet Access Q2 Not on file 03/02/2024 Comments No Intention Date Recorded No desire to become (finding) 0 03/08/2025 Sex and Gender Information Value Date Recorded Sex Assigned at Female 04/19/2022 10:14 AM EDT Legal Sex Female 10:14 AM EDT Gender Identity Female 04/19/2022 10:14 AM EDT Sexual Orientation Straight 04/19/2022 10 :14 AM EDT documented as of this encounter Last Filed Vital Signs Vital Sign Reading Time Taken Comments Blood Pressure 150/90 03/08/2025 2:35 PM EDT Pulse 72 03/08/2025 1:47 PM EDT Temperature 36.1 C (97 F) 03/08/2025 1:47 PM EDT Respiratory Rate 20 03/08/2025 1:47 PM EDT Oxygen Saturation - - Inhaled Oxygen Concentration - - Weight 114 kg (251 lb) 03/08/2025 1:47 PM EDT Height 165.1 cm (5' 5 ) 03/08/2025 1:47 PM EDT Body Mass Index 41.77 03/08/2025 1:47 PM EDT documented in this encounter Functional Status * Over the past 2 weeks, how often have you been bothered by any of the following problems? Question Answer Date of Assessment Author Patient Health Questionnaire -2 Score 2 03/08/2025 3:20 PM EDT Carmina Lacy MA * Little interest or pleasure in doing things Answer Date of Assessment Author More than half the days 03/08/2025 3:20 PM EDT Carmina Allen MA * Feeling down, depressed, or hopeless Answer Date of Assessment Author Not at all 03/08/2025 3:20 PM EDT Zeny Lacy MA * Trouble falling or staying asleep, or sleeping too much Answer Date of Assessment Author Nearly every day 03/08/2025 3:20 PM EDT Carmina Lacy MA * Feeling tired or having little energy Answer Date of Assessment Author Several days 03/08/2025 3:20 PM EDT Zeny Lacy MA * Poor appetite or overeating Answer Date of Assessment Author Not at all 03/08/2025 3:20 PM EDT Zeny Lacy MA * Feeling bad about yourself - or that you are a failure or have let yourself or your family down Answer Date of Assessment Author Not at all 03/08/2025 3:20 PM EDT Zeny Lacy MA * Trouble concentrating on things, such as reading the newspaper or watching television Answer Date of Assessment Author Not at all 03/08/2025 3:20 PM EDT Zeny Lacy MA * Moving or speaking so slowly that other people could have noticed? Or the opposite - being so fidgety or restless that you have been moving around a lot more than usual. Answer Date of Assessment Author Not at all 03/08/2025 3:20 PM EDT Zeny Lacy MA * Thoughts that you would be better off or hurting yourself in some way Answer Date of Assessment Author Not at all 03/08/2025 3:20 PM EDT Zeny Lacy MA * Patient Health Questionnaire-9 Score Answer Date of Assessment Author 6 03/08/2025 3:20 PM EDT Zeny Lacy MA * Over the last 2 weeks, how often have you been bothered by any of the following problems? Question Answer Date of Assessment Author Feeling nervous, anxious, or on edge 0 03/08/2025 3:21 PM EDT Carmina Lacy MA Not being able to stop or co ntrol worrying 0 03/08/2025 3:21 PM EDT Carmina Lacy MA Worrying too much about diff erent things 0 03/08/2025 3:21 PM EDT Carmina Lacy MA Trouble relaxing 1 03/08/2025 3:21 PM EDT R Carmina redd MA Being so restless that it is hard to sit still 0 03/08/2025 3:21 PM EDT Carmina Lacy MA Becoming easily annoyed or irritable 0 03/08/2025 3:21 PM EDT Carmina Lacy MA Feeling afraid as if somethi ng awful might happen 0 03/08/2025 3:21 PM EDT Carmina Lacy MA PURA-7 Total Score 1 03/08/2025 3:21 PM EDT Carmina Lacy MA documented as of this encounter Progress Notes * ANTONI Zheng - 03/08/2025 1:45 PM EDT SUBJECTIVE: Caitlyn Valverde is a 44 y.o. year old female who presents for routine physical exam. Denies recent illness, injury, or hospitalization. PMH IgA nephropathy & RCC s/p partial nephrectomy (2010), asthma, pulm HTN, tricuspid regurg, aortic valve insufficiency, h/o PE & NSTEMI, papilledema, and T2DM dx'd 01/2024, anxiety She follows w/ Dr. Daley for renal and Dr. Anthony/Dr. Juarez for urology, has biopsy proven IgA nephropathy w/ macroalbuminuria. Follows w/ Dr. Amaya Psych Follows w/ Dr. Patino and [facility] for Cardiology [place] [facility] [place]IANA and nocturnal hypoxia Acute Concerns: HTN: is out of hydralazine. Having a hard time keeping track of her meds being at different pharmacies. She will consolidate here. Had insurance issues so was trying to minimize cost. Needs new BP machine for home use. End of this mo seeing wt loss specialist in [place]. Cannot drink protein shakes d/t nephropathy. Renal visit soon w/ Dr. Daley Referred to GI and got referral but has not gotten call to schedule. Has fam h/o Mom had colon polyps. Sister had mass in uterus and also found to have colon polyps. Pt has personal h/o endometrial malignancy, s/p total hysterectomy 2012. DM is ok, with A1c at goal. No polyuria/dipsia/phagia. No hypoglycemia. Does desire wt loss and hasOSA and nocturnal hypoxia and would benefit from GLP1 medication. [facility] is eye . She willgo to try to schedule w/ them. Asthma has been well controlled. But usually gets worse in winter. Used to be on advair. Has not needed albuterol > 2x/wk. Will start symbicort for PRN use and if needed increase to BID as maintenance. Lab Results Component Value Date HGBA1C 6.4 (A) 03/08/2025 Eye and [facility] is eye . She will go to try to schedule w/ them. 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 12/10/24 42.97 kg/m?? 08/31/24 43.60 kg/m?? Wt Readings from Last 3 Encounters: 03/08/25 251 lb (114 kg) 12/10/24 258 lb 3.2 oz (117 kg) 08/31/24 262 lb (119 kg) Here w/ daughter and granddaughter Social History Social History Narrative Not on file Problem List[1] Surgical History[2] Family History[3] Review of Systems Constitutional: Negative for chills and fever. HENT: Negative for sore throat. Eyes: Negative for visual disturbance. Respiratory: Negative for cough and shortness of breath. Cardiovascular: Negative for chest pain. Gastrointestinal: Negative for constipation and diarrhea. Endocrine: Negative for polydipsia, polyphagia and polyuria. Genitourinary: Negative for dysuria. Neurological: Negative for dizziness, weakness, numbness and headaches. OBJECTIVE: Vitals: 03/08/25 1347 03/08/25 1435 BP: (!) 180/100 (!) 150/90 BP Location: Left arm Patient Position: Sitting BP Cuff Size: Large adult Pulse: 72 Resp: 20 Temp: 97 ??F (36.1 ??C) TempSrc: Oral Weight: 251 lb (114 kg) Height: 5' 5 (1.651 m) Physical Exam Vitals reviewed. Constitutional: Appearance: Normal appearance. She is obese. HENT: Head: Normocephalic and atraumatic. Eyes: General: No scleral icterus. Extraocular Movements: Extraocular movements intact. Pupils: Pupils are equal, round, and reactive to light. Cardiovascular: Rate and Rhythm: Normal rate and regular rhythm. Pulmonary: Effort: Pulmonary effort is normal. Breath sounds: Normal breath sounds. Musculoskeletal: Right lower leg: No edema. Left lower leg: No edema. Skin: General: Skin is warm and dry. Neurological: Mental Status: She is alert and oriented to person, place, and time. Psychiatric: Mood and Affect: Mood normal. Behavior: Behavior normal. ASSESSMENT/PLAN Caitlyn was seen today for annual exam. Diagnoses and all orders for this visit: [facility] maintenance Eye and [facility] is eye dr. She will go to try to schedule w/ them. Mammo in May CRC screening to be scheduled w/ GI Pap NA, s/p total hyst 2012 endometrial malignancy Encouraged to get flu and COVID vaccines at retail pharmacy type 2 diabetes mellitus with hyperlipidemia (CMS/HCC) (CMS/HCC) (Primary) A1c (Target </=7.0): Lab Results Component Value Date HGBA1C 6.4 (A) 03/08/2025 Last renal function: Lab Results Component Value Date GLUCOSE 93 11/02/2024 NA 138 11/02/2024 K 4.7 11/02/2024 CO2 26 11/02/2024 CL 104 11/02/2024 BUN 15 11/02/2024 CREATININE 1.15 11/02/2024 EGFR 51 11/02/2024 No results found for: MICROALBCREA , MICROALBCREU Lipids: Lab Results Component Value Date CHOLESTEROL 247 (H) 11/09/2022 HDLCHOL 55 11/09/2022 LDLCHOL 165 (H) 11/09/2022 TRIG 155 (H) 11/25/2023 TRIG 130 11/09/2022 On rosuvastatin Foot exam: Due at follow-up Eye exam: Self refer Dental: Self refer PNA (PCV 20 +/- past PPSV): UTD TDap/Td: UTD DENNY/ARB: Yes Statin: Yes ASA: Intolerance SGLT2i: No, allergic reaction hives to Jardiance continue metformin 500 mg twice daily Was previously on Lantus until A1c improved - POCT Glucose - POCT Hgb A1c - Lipid Panel, Standard; Future - Albumin, Random Urine W/Creatinine; Future - Comprehensive Metabolic Panel; Future Benign essential hypertension BP remains above goal on repeat patient denies headache vision changes chest pain shortness of breath dizziness Goal < 130/80. Continue to encourage low salt diet, regular exercise, home BP monitoring, compliance with medications. Call clinic or renal if BP is frequently >150/90 Go to ED/call 911 if > 170/100 and having sx such as WOOD, visual changes, chest pain, SOB Last renal function: Lab Results Component Value Date GLUCOSE 93 11/02/2024 NA 138 11/02/2024 K 4.7 11/02/2024 CO2 26 11/02/2024 CL 104 11/02/2024 BUN 15 11/02/2024 CREATININE 1.15 11/02/2024 EGFR 51 11/02/2024 Has known macroalbuminuria -unable to tolerate Jardiance due to allergic reaction and hives Is on ACEi Needs monitor for home use Has been out of hydralazine (usu from cards, will send refill d/t severity of hypertension) Blood pressure medications include: Hydralazine 50 mg twice daily (from cardiology, though did refill today) Lisinopril 10 mg tablet 2 tablets once daily Spironolactone 25 mg 1 tablet once daily (from cardiology) verapamil 180 mg ER 2 tablets once daily - hydrALAZINE (Apresoline) 50 MG tablet; Take 1 tablet (50 mg) by mouth 2 times daily. - lisinopril 10 MG tablet; Take 2 tablets (20 mg) by mouth Once per day. Pulmonary hypertension (CMS/HCC) Follows with cardiology regularly Mild persistent asthma without complication Use Symbicort as needed and if needing more than 3 times a week increase to twice daily maintenancedose - budesonide-formoterol (Symbicort) 80-4.5 MCG/ACT inhaler; Take 2 puffs as needed every 4-6 hours for SOB. Rinse mouth with water after use to reduce aftertaste and incidence of candidiasis. Do not swallow. Insomnia, unspecified type - traZODone (Desyrel) 100 MG tablet; TAKE 2 TABLETS BY MOUTH AT BEDTIME NEEDED FOR SLEEP Class 3 severe obesity with serious comorbidity and body mass index (BMI) of 40.0 to 44.9 in adult Lifestyle recommendations: be as active as able, ideally exercise 150min moderate intensity or 75min vigorous intensity weekly; increase intake of vegetables, fruits, whole grains, fish. Try to minimize intake of sugary or greasy food and drink. Use olive oil or vegetable, peanut, canola, or similar oil for cooking. Decrease or stop drinking alcohol if you drink, quit/decrease smoking if you smoke. Cigarette nicotine dependence without complication Encouraged total cessation of smoking, affirmed cutting down IgA nephropathy Continue plan per nephrology Asymptomatic hypertensive urgency As above Follow Up: STF BP, BP check w/ RN 1 week Medications Ordered Prior to Encounter[4] [place]ican Translation: Patient is bilingual and declines translation services [1] Patient Active Problem List Diagnosis Benign essential hypertension History of partial nephrectomy IgA nephropathy Neoplasm of kidney Mild persistent asthma Nephritis Nonrheumatic aortic valve insufficiency Nonrheumatic tricuspid valve regurgitation Allergic rhinitis Hypoxia Pulmonary hypertension (CMS/HCC) Vitamin D deficiency Papilledema Cigarette nicotine dependence without complication Mixed hyperlipidemia Newly diagnosed diabetes (CMS/HCC) Type 2 diabetes mellitus with hyperlipidemia (CMS/HCC) (CMS/HCC) Class 3 severe obesity with serious comorbidity and body mass index (BMI) of 40.0 to 44.9 in adult Acute non-recurrent sinusitis History of endometrial cancer Status post total hysterectomy [2] Past Surgical History: Procedure Laterality Date IR LUMBAR PUNCTURE 04/26/2023 IR LUMBAR PUNCTURE PARTIAL NEPHRECTOMY Left RCC, 2010 TOTAL ABDOMINAL HYSTERECTOMY 2013 endometrial ca [3] Family History Problem Relation Name Age of Onset Asthma Mother Umm Valverde Cancer Mother Umm Valverde Depression Mother Umm Valverde Heart disease Mother Umm Valverde Hypertension Mother Umm Valverde Kidney disease Mother Umm Valverde Arthritis Maternal Grandmother Carmina Cooper Colon Asthma Maternal Grandmother Carmina Cooper Colon Depression Maternal Grandmother Carmina Cooper Colon Diabetes Maternal Grandmother Carmina Cooper Colon Mental illness Maternal Grandmother Carmina Cooper Colon Cancer Mother's Brother Dru Valverde [4] Current Outpatient Medications on File Prior to Visit Medication Sig Dispense Refill albuterol (Ventolin HFA) 108 (90 Base) MCG/ACT inhaler Inhale 2 puffs Every 4-6 hours as needed forwheezing or shortness of breath. 18 g 3 Alcohol Swabs 70 % pads Use to test blood sugar 3 times daily 100 each 11 Blood Glucose Monitoring Suppl (Global Ad SourceStyle Phoenix Lite) w/Device kit Use to test blood sugar 3 times daily 1 kit 0 Blood Pressure kit 1 kit in the morning. 1 kit 0 EPINEPHrine (Epipen) 0.3 MG/0.3ML injection syringe INJECT INTRAMUSCULARLY DIRECTED ON PACKAGE AND GO TO EMERGENCY ROOM NEEDED FOR ANAPHYLAXIS, CALL 911 AFTER USE 2 each 1 fluticasone (Flonase) 50 MCG/ACT nasal spray INSTILL 1 SPRAY IN EACH NOSTRIL ONCE DAILY 16 g 2 FREESTYLE LITE test strip Use to test blood sugar 3 times daily 100 each 12 hydrOXYzine pamoate (Vistaril) 50 MG capsule Take 1 capsule by mouth if needed in the morning, at noon, and at bedtime for anxiety or sleep. Lancets misc Use to test blood sugar 3 times daily 100 each 11 loratadine (Claritin) 10 MG tablet Take 1 tablet (10 mg) by mouth Once per day. As needed 90 tablet0 Melatonin Maximum Strength 5 MG tablet TAKE 1 TO 2 TABLETS BY MOUTH AT BEDTIME NEEDED nicotine polacrilex (Nicorette) 2 MG gum CHEW 1 EACH (2 MG) IF NEEDED FOR SMOKING CESSATION. 110 each 2 nitroglycerin (Nitrostat) 0.4 MG SL tablet TAKE 1 TABLET BY SUBLINGUAL ROUTE NEEDED FOR CHEST PAIN. IF NO RELIEF, GO TO ER omega-3 (Fish Oil) 1000 MG capsule Take 1,000 mg by mouth. pantoprazole (ProtoNix) 40 MG EC tablet TAKE 1 TABLET BY MOUTH EVERY DAY IN THE MORNING 90 tablet 1 pen needle 32G x 4 mm misc Use to inject Lantus once per day 100 each 12 rosuvastatin (Crestor) 5 MG tablet TAKE 1 TABLET BY MOUTH EVERY DAY AT BEDTIME 30 tablet 5 sertraline (Zoloft) 100 MG tablet Take 100 mg by mouth in the morning. Spacer/Aero-Holding Chambers (OptiChamber Trish) misc 1 each every 4 (four) hours if needed (asthma). 1 each 0 spironolactone (Aldactone) 25 MG tablet Take 0.5 tablets by mouth 1 (one) time each day. triamcinolone (Kenalog) 0.1 % cream APPLY TOPICALLY 2 TIMES DAILY FOR UP TO 28 DAYS 30 g 1 verapamil SR (Calan SR) 180 MG ER tablet TAKE 2 TABLETS BY MOUTH EVERY DAY WITH FOOD 180 tablet 1 [DISCONTINUED] Advair Diskus 250-50 MCG/ACT aerosol powder Inhale 1 puff 2 times daily. [DISCONTINUED] cloNIDine (Catapres) 0.1 MG tablet Take 0.1 mg by mouth 2 times daily. [DISCONTINUED] diphenhydrAMINE (BENADryl) 25 MG tablet Take 1 tablet 25 mg every 6 hours as needed for itching. 40 tablet 0 [DISCONTINUED] hydrALAZINE (Apresoline) 50 MG tablet Take 1 tablet by mouth 2 times daily. [DISCONTINUED] insulin glargine (Lantus SoloStar) 100 UNIT/ML pen Inject 10 Units under the skin atbedtime. 3 mL 2 [DISCONTINUED] lisinopril 10 MG tablet Take 2 tablets (20 mg) by mouth Once per day. 60 tablet 0 [DISCONTINUED] metFORMIN (Glucophage) 500 MG tablet TAKE 1 TABLET BY MOUTH TWICE A DAY 180 tablet 1 [DISCONTINUED] traZODone (Desyrel) 100 MG tablet TAKE 1 TO 2 TABLETS BY MOUTH AT BEDTIME NEEDED FOR SLEEP 180 tablet 1 Current Facility-Administered Medications on File Prior to Visit Medication Dose Route Frequency Provider Last Rate Last Admin [DISCONTINUED] Insulin Lispro solution 10 Units 10 Units Injection Once Daily JOHN Dean 10Units at 02/01/24 1230 documented in this encounter Miscellaneous Notes * Addendum Note - ANTONI Zheng - 03/08/2025 1:45 PM EDTAddended by: CHAPO DIAL on: 03/11/2025 11:39 AM Modules accepted: Orders documented in this encounter Plan of Treatment Upcoming Encounters Date Type Department Care Team (Late st Contact Info) Description 04/11/2025 11:15 AM EDT Office Visit [facility] [address] [place] [address] Chapo Dial ANP [address] [place] [address] Scheduled Orders Name Type Priority Associated Diagnoses Orde r Schedule Lipid Panel, Standard Lab Routine Type 2 diabetes mellitus with hyperlipidemia (CMS/HCC) ([facility]) Expected: 03/11/2025 (Approximate), Expires: 03/11/2026 Albumin, Random Urine W/Creatinine Lab Routine Type 2 diabetes mellitus with hyperlipidemia (CMS/HCC) ([facility]/HCC) Expected: 03/11/2025 (Approximate), Expires: 03/11/2026 Comprehensive Metabolic Panel Lab Routine Type 2 diabetes mellitus with hyperlipidemia (CMS/HCC) ([facility]/HCC) Expected: 03/11/2025 (Approximate), Expires: 03/11/2026 documented as of this encounter Procedures Procedure Name Priority Date/Time Associated Diagnosis Comments POCT GLYCATED HEMOGLOBIN, TOTAL Routine 03/08/2025 1:51 PM EDT Type 2 diabetes mellitus with hyperlipidemia ([facility]/HCC) ([facility]) POCT GLUCOSE Routine 03/08/2025 1:49 PM EDT Type 2 diabetes mellitus with hyperlipidemia ([facility]/HCC) ([facility]) documented in this encounter Results * (ABNORMAL) POCT Hgb A1c (03/08/2025 1:51 PM EDT) Hemoglobin A1C 6.4(A) 4.0 - 5.7 % QC Media Lot # [id number] Lot# Expiration Date [id number] Blood 03/08/2025 1:51 PM EDT Chapo CORRALES POINT OF CARE TEST ENTER/EDIT OR DERABLES Final Result * POCT Glucose (03/08/2025 1:49 PM EDT) Glucose Blood, POC 130 60 - 200 mg/dL QC Media Lot # [id number] Lot# Expiration Date [id number] Blood Capillary blood specimen / Unknown 03/08/2025 1:49 PM EDT Chapo CORRALES POINT OF CARE TEST ENTER/EDIT OR DERABLES Final Result documented in this encounter Visit Diagnoses Diagnosis Healthcare maintenance- Primary Type 2 diabetes mellitus with hyperlipidemia (CMS/HCC) (CMS/HCC) Benign essential hypertension Essential hypertension, benign Pulmonary hypertension (CMS/HCC) Other chronic pulmonary heart diseases Mild persistent asthma without complication Insomnia, unspecified type Class 3 severe obesity with serious comorbidity and body mass index (BMI) of 40.0 to 44.9 in adult Cigarette nicotine dependence without complication IgA nephropathy Nephritis and nephropathy, not specified as acute or chronic, with unspecified pathological lesion in kidney Asymptomatic hypertensive urgency documented in this encounter Additional Health Concerns Assessment Noted Time PHQ-9 Depression Total Score: 6 03/08/20 25 3:20 PM EDT documented as of this encounter Care Teams Jewish Thought Professor Relationship Specialty Start Date End Date Chapo Dial ANP [address] [place] [id number] PCP - General Family Medicine 07/30/20 documented as of this encounter
--- NOTE | 2025-03-15 10:23 | HO.NEPHOV ---
Vital Signs 03/15/25 10:27 Height 5 ft 5 in Weight 253 lb 4 oz BMI 42.1 BP 130/80 Blood Pressure Location Rt brachial Position Sitting Pulse 70 Pulse Source Pulse Oximeter Pulse Oximetry (%) 96 Oxygen Delivery Method Room Air Intake Visit Reasons: 3mon follow-up w/labs-Conf Dumper Bailer Operator Required: No Accompanied by: Self / Same As Patient Allergies pork derived (porcine) (Pork derived (porcine)) Allergy (Intermediate, Verified 03/15/25 10:26) HIVES/STOMACH PAIN/THROAT CLOSES ibuprofen (From Motrin) Allergy (Mild, Verified 03/15/25 10:26) GI UPSET aspirin Allergy (Unknown, Verified 03/15/25 10:26) Unknown red dye Allergy (Verified 03/15/25 10:26) Unknown Motrin Allergy (Unknown, Uncoded 12/17/24 14:29) Unknown pork Allergy (Unknown, Uncoded 12/17/24 14:29) Unknown jardience Adverse Reaction (Uncoded 12/17/24 14:29) Hives HPI Comments Details: Caitlyn was seen in follow-up of her hypertension and proteinuria on a backdrop of IgA nephropathy. She had partial nephrectomy on the left side for a renal mass . She is a diabetic now . Had A1c close to 12 but is just on metformin now with A1c improving to under 7.0 She is compliant with her medications. Blood pressure has been acceptable. She has no sore throat, hematuria, headache, visual disturbances, chest pain, shortness of breath, proximal nocturnal dyspnea or orthopnea. She is tolerating her current medication regimen. She is taking her fish oil. She has no orthostatic symptoms. She avoids nonsteroidal anti-inflammatory medications. She recently had UTI and was seen in [facility] Medical History IgA nephropathy Cancer of left kidney Migraine headache Asthma Hypertension Myocardial infarction IgA nephropathy Surgical History Morbid obesity H/O partial nephrectomy H/O right knee surgery H/O: hysterectomy Family History Mother IgA nephropathy Breast cancer Cancer of kidney CVA (cerebral vascular accident) Maternal Uncle Tongue cancer Social History Household Members: Family Housing: House Do you presently have visiting nurse or other home services: No Alcohol intake: never Comment: sleeping Cigarette Packs Per Day: 1 Cigarettes Per Day: 20.0 service: No Current occupational status: employed Review of Systems Const All systems reviewed & are unremarkable except as noted in HPI and below Physical Exam Vital Signs: Last Vital Signs Pulse 70 03/15/25 10:27 BP 130/80 03/15/25 10:27 Pulse Ox 96 03/15/25 10:27 Oxygen Delivery Method Room Air 03/15/25 10:27 BMI result Body Mass Index 42.1 Const General: comfortable and no acute distress Orientation/consciousness: patient oriented x3 HEENT Head: Yes normocephalic Mouth: Normal oral and palatal mucosa present Eyes EOM: EOMs intact bilaterally Neck Neck: Yes supple Resp Auscultation: clear to auscultation bilaterally Cardio Jugular venous distension: no JVD Rate: regular rate GI Palpation (GI): Soft to palpation Auscultation: normal bowel sounds General: Yes no CVA tenderness Back/Spine/Pelvis Back: no CVA tenderness Skin General skin exam: no rashes or lesions noted Neuro General: patient oriented x3 and moves all extremities Extrem General: Yes no pedal edema Results Reviewed Nephrology Results: Sodium, (135-145) 139 mmol/L 03/13/25 Potassium, (3.3-5.1) 3.9 mmol/L 03/13/25 Chloride, (96-108) 105 mmol/L 03/13/25 Carbon Dioxide, (22-29) 28 mmol/L 03/13/25 BUN, (9-16) 16 mg/dL 03/13/25 Creatinine, (0.5-1.4) 1.46 mg/dL H 03/13/25 Urine Creatinine 333.07 mg/dL 03/13/25 Protein/Creatinin Ratio, (<0.2) 1.08 H 03/13/25 Renal US 08/14/24 Assessment & Plan Assessment & Plan (1) Hypertension: Code(s): I10 - Essential (primary) hypertension Category: Medical Qualifiers: Hypertension type: primary hypertension Qualified Code(s): I10 - Essential (primary) hypertension (2) Dysuria: Code(s): R30.0 - Dysuria Category: Medical (3) IgA nephropathy: Code(s): N02.8 - Recurrent and persistent hematuria with other morphologic changes Category: Medical (4) CKD (chronic kidney disease) stage 3, GFR 30-59 ml/min: Code(s): N18.30 - Chronic kidney disease, stage 3 unspecified Category: Medical Qualifiers: Chronic kidney disease stage 3 subtype: stage 3a (GFR 45-59) Qualified Code(s): N18.31 - Chronic kidney disease, stage 3a (5) Proteinuria: Code(s): R80.9 - Proteinuria, unspecified Category: Medical Qualifiers: Proteinuria type: other Qualified Code(s): R80.8 - Other proteinuria Tereza Brady has biopsy proven IgA nephropathy. She has H/O significant proteinuria. She needs to lose weight and if she is unsuccessful she should be referred to weight management program in [facility]. She is on DENNY-inhibitor. She has a history of a right renal mass. She needs follow-up MRI. She needs to maintain good hydration, avoid nonsteroidal anti-inflammatory medications along with a low-sodium diet. She should be consistent in taking fish oil capsules. She needs MRI of her kidneys for follow up of her renal mass. She has seen Urology. She is tolerating statins. She was given Jardiance which she developed allergy. She can be given Farxiga instead. I have ordered follow-up blood work and urine studies. Follow-up given Orders: Orders Creatinine 4 Weeks I10 - Essential (primary) hypertension, N02.8 - Recurrent and persistent hematuria with other morphologic changes, N18.31 - Chronic kidney disease, stage 3a, R80.8 - Other proteinuria Blood Urea Nitrogen 4 Weeks I10 - Essential (primary) hypertension, N02.8 - Recurrent and persistent hematuria with other morphologic changes, N18.31 - Chronic kidney disease, stage 3a, R80.8 - Other proteinuria Electrolytes 4 Weeks I10 - Essential (primary) hypertension, N02.8 - Recurrent and persistent hematuria with other morphologic changes, N18.31 - Chronic kidney disease, stage 3a, R80.8 - Other proteinuria Urine Culture Today R30.0 - Dysuria Coding Level of Care Code Est Pt Level 4 (59703) Diagnoses Primary hypertension I10 Hypertension type: primary hypertension Dysuria R30.0 IgA nephropathy N02.8 Stage 3a chronic kidney disease N18.31 Chronic kidney disease stage 3 subtype: stage 3a (GFR 45-59) Other proteinuria R80.8 Proteinuria type: other
[2025-03-15 10:27] VITALS: BP 130/80; PULSE 70; O2SAT 96; BMI 42.1
--- OUTSIDE RECORDS SUMMARY | 2025-03-15 11:32 | XMS_ITS | Encounter Summary ---
Author Organization [employer] Address [address] [place] [address] [address] [place] [address] Care Team Providers Care Brand Manager Name Role Phone Niki Allen Primary Care Provider [phone] Reason for Visit * Reason Onset Date Comments Call Back Request 04/18/2023 Encounter Details Date Type Department Care Team ([facility] st Contact Info) Description 04/18/2023 Telephone [facility] [address] [place], [place] [phone] Niki Allen ANP [address] [place] [address] Call Back Request Social History Tobacco Use [...] notes were fax over same day 04/17/2023, Hand Clerical Verifier transferred over to HIM to verify if notes were received. Please contact Yamila at [phone] documented in this encounter Plan of Treatment Upcoming Encounters Date Type Department Care Team (Late st Contact Info) Description 04/11/2025 11:15 AM EDT Office Visit [facility] [address] [place] [address] Niki Allen ANP [address] [place] [address] documented as of this encounter Visit Diagnoses Not on filedocumented in this encounter Care Teams Brand Manager Relationship Specialty Start Date End Date Niki Allen ANP [address] [place] [address] PCP - General Family Medicine 07/30/20 documented as of this encounter
--- OUTSIDE RECORDS SUMMARY | 2025-03-15 11:33 | XMS_ITS | Encounter Summary ---
Author Organization [employer] Address [address] [place] [address] [address] [place] [address] Care Team Providers Care Correctional Sergeant Name Role Phone Allen Niki CORRALES Primary Care Provider [phone] Encounter Details Date Type Department Care Team ([facility] st Contact Info) Description 12/13/2024 Orders Only [facility] [address] [place], [place] [phone] Brianna Barry MD [address] [place] [address] Social History Tobacco Use Types Packs/Day Years [...] with others, in a hotel, in a intermediate, living outside on the street, on a [...] Description 04/11/2025 11:15 AM EDT Office Visit [facility] [address] [place] [phone] Niki Allen ANP [address] [place] [address] documented as of this encounter Visit Diagnoses Not on filedocumented in this encounter Additional Health Concerns Assessment Noted Time PHQ-9 Depression Total Score: 5 03/02/20 24 2:07 PM EDT documented as of this encounter Care Teams Correctional Sergeant Relationship Specialty Start Date End Date Niki Allen ANP [address] [place] [phone] PCP - General Family Medicine 07/30/20 documented as of this encounter
--- OUTSIDE RECORDS SUMMARY | 2025-03-15 11:33 | XMS_ITS | Clinical Summary ---
Author Organization [address] [facility] Address [address] [place] [address] Phone Care Team Providers Care Ems Driver Name Role Phone Niki Allen NP Primary Care Provider [phone] Allergies Active Allergy Reactions Criticality Noted Date [...] Type 2 diabetes mellitus wit h hyperlipidemia ([facility] V24, [facility] V28) 02/13/2024 Overview (07/19/2024): new dx 01/2024, metformin 500mg BID, lantus 10 units with plan to increase Cigarette nicotine dependence without complicati on 08/15/2023 Mixed hyperlipidemia 08/15/2023 Hypoxia 12/08/2022 Pulmonary hypertension ([facility] V24, [facility] V28 ) 12/08/2022 Overview (07/19/2024): Follows w/ [facility] Cards BP meds: Verapamil [...] Nephrectomy Malignant tumor of kidney pa renchyma ([facility] V24, [facility] V28) 01/28/2014 Overview (07/19/2024): Renal Carcinoma Immunizations [...] Upcoming Encounters Date Type Department Care Team ([facility] st Contact Info) Description 04/05/2025 10:30 AM EDT Office Visit Bariatric Surgery - [address] [phone] Liv Cartagena, CITLALY [address] [place] [phone] Health Maintenance Due Date Last Done [...] to complete this topic Insurance MEDICAID - [place] [employer] Care Teams Ems Driver Relationship Specialty Start Date End Date Niki Allen NP [address] [place] [phone] PCP - General 07/19/24
--- OUTSIDE RECORDS SUMMARY | 2025-03-15 11:33 | XMS_ITS | Encounter Summary ---
Author Organization [employer] Address [address] [facility] 7[address] [place] [address] Care Team Providers Care Refueling Ramp Attendant Name Role Phone Tiffany Niki CORRALES Primary Care Provider [phone] Encounter Details Date Type Department Care Team (Latest Contact Info) Description 03/15/2025 Travel Social History Tobacco Use Types Packs/Day [...] Description 04/11/2025 11:15 AM EDT Office Visit [facility] [address] [place] [phone] Niki Allen ANP [address] [place] [phone] documented as of this encounter Visit Diagnoses Not on filedocumented in this encounter Additional Health Concerns Assessment Noted Time PHQ-9 Depression Total Score: 6 03/08/20 25 3:20 PM EDT documented as of this encounter Care Teams Refueling Ramp Attendant Relationship Specialty Start Date End Date Niki Allen ANP [address] [place] [phone] PCP - General Family Medicine 07/30/20 documented as of this encounter
--- OUTSIDE RECORDS SUMMARY | 2025-03-15 11:33 | XMS_ITS | Clinical Summary ---
Author Organization [employer] Address [address] [place] [address] 7t [place] [address] Care Team Providers Care Front Desk Receptionist Name Role Phone Tiffany Chapo CORRALES Primary Care Provider [phone] Allergies Active Allergy Reactions Criticality Noted Date [...] shortness of breath. 18 g 3 Active Spacer/Aero-Hold ing Chambers (OptiChamber Trish) misc 1 each every 4 (four) hours if needed (asthma). 1 each 024 Active FREESTYLE LITE test stripIndications :Type 2 diabetes mellitus with hyperlipidemia (CMS/HCC) (CMS/[facility]) Use to test blood sugar 3 times [...] 025 Active Blood Glucose Monitoring Suppl (FreeStyle Valentine Lite) w/Device kitIndications:T ype 2 diabetes mellitus [...] ANAPHYLAXIS, CALL 911 AFTER USE 2 each 025 Active fluticasone (Flonase) 50 MCG/ACT nasal [...] s:Type 2 diabetes mellitus with hyperlipidemia (CMS/HCC) ([facility]/HCC) TAKE 1 TABLET BY MOUTH TWICE A [...] of candidiasis. Do not swallow. 1 each 025 Active traZODone (Desyrel) 100 MG tabletIndication [...] SoloStar) 100 UNIT/ML penIndications:N ewly diagnosed diabetes ([facility]) Inject 10 Units under the skin at bedtime. 3 mL 2 024 2024 Discontinued( Therapy completed) lisinopril 10 MG tabletIndication s:Benign essential hypertension Take 2 tablets (20 mg) by mouth Once per day. 60 tablet 024 2024 Discontinued( Reorder (will not trigger notification to Pharmacy)) metFORMIN (Glucophage) 500 MG tabletIndication s:Type 2 diabetes mellitus with hyperlipidemia ([facility]/HCC) ([facility]) TAKE 1 TABLET BY MOUTH TWICE A [...] Lispro solution 10 UnitsIndications:New ly diagnosed diabetes ([facility]) 10 Units IJ Once Daily 02/01/2024 03/11/2025 Discon tinued Active Problems Problem Noted Date Diagnosed Date Status post total hysterectomy 01/21/2025 History of endometrial cancer 08/03/2024 Overview (08/03/2024): s/p total hysterectomy 2012 Acute non-recurrent sinusitis 07/18/2024 Assessment & Plan (07/18/2024 11:20 AM EST): -discontinue OTC nasal spray -Augmentin x 10 days -continue fluticasone nasal spray -start loratadine -swin[place] on environmental triggers changes -advise may take [...] Plan: BG monitor to be purchased at [facility] (better cost d/t lack of current [...] Encounters Date Type Department Care Team Description 03/15/2025 Travel 03/13/2025 Orders Only GENERIC EXTERNAL DATA DEPARTMENT Provider, Generic External Data 03/08/2025 1:45 PM EDT Office Visit [facility] [address] [place] [phone] Chapo Dial ANP Healthcare maintenance (Primary Dx); Type 2 diabetes mellitus with hyperlipidemia (CMS/HCC) (CMS/HCC); Benign essential hypertension; Pulmonary hypertension (CMS/HCC); Mild persistent asthma without complication; Insomnia, unspecified type; Class 3 severe obesity with serious comorbidity and body mass index (BMI) of 40.0 to 44.9 in adult; Cigarette nicotine dependence without complication; IgA nephropathy; Asymptomatic hypertensive urgency 03/08/2025 Travel 03/08/[address] [facility] [address] [place] [address] Chapo Dial ANP Type 2 diabetes mellitus with hyperlipidemia (CMS/HCC) ([facility]) 03/07/[address] [phone] Chapo Dial ANP chart prep 03/01/2025 Patient Outreach [address] [address] Chapo Dial ANP Pre-visit Planning (SDOH screening negative and Tobacco screening negative) 01/17/[address] [address] Chapo Dial ANP Mixed hyperlipidemia 12/19/[address] [address] Chapo Dial ANP Appointment Request 12/18/[address] [phone] Mar Hancock MD chart prep 12/14/2024 Results Follow-Up [facility] [address] [place] [address] Ilana Childers RN Culture, Urine, Routine, POCT urinalysis dipstick manually resulted 12/13/2024 Orders Only [facility] [address] [place] [address] Brianna Barry MD from Last 3 Months [...] Description 04/11/2025 11:15 AM EDT Office Visit [facility] [address] [place] [address] Chapo Dial, ANTONI [address] [place] [address] Health Maintenance Due Date Last Done Comments HIV Screening 1980 Diabetes: Foot Exam 1990 Eye Exam 1990 HPV Vaccines (1 - 3-dose series) 1995 Hepatitis C Screening 1998 Lipid Panel 11/24/2024 11/25/2023, 11/09/2022 COVID-19 Vaccine ( season) 2025 11/04/2022, 11/28/2020, 10/31/2020 Influenza Vaccine (#1) 2025 , 05/28/2019, 05/22/2018, Additional history exists Mammogram 06/22/2025 06/22/2024, 08/2024, 06/22/2024, Additional history exists Diabetes: Hemoglobin A1C 09/05/2025 025, 06/01/2024, 02/13/2024, Additional history exists SDOH Screening 03/01/2026 03/01/2025 Alcohol/Substance Use Screening 03/08/2026 03/08/2025 Depression Screening 03/08/2026 03/08/2025, 03/08/20 25 Disability Screening 03/08/2026 03/08/2025 Tobacco Screening 03/08/2026 03/08/2025 Family Planning (PISQ) 03/11/2026 03/11/2025 Diabetes: Urine Protein Screening 03/13/2026 03/13/2025, 08/06/2024, 07/29/2023, Additional history exists Zoster Vaccines (1 of [...] PANEL Routine 03/13/2025 1:2 6 PM EDT PROTEIN CREATININE RATIO, URINE Routine 03/13/2025 1:21 PM EDT POCT GLYCATED HEMOGLOBIN, TOTAL Routine 03/08/2025 1:51 PM EDT Type 2 diabetes mellitus with hyperlipidemia (CMS/HCC) ([facility]/HCC) POCT GLUCOSE Routine 03/08/2025 1:49 PM EDT Type 2 diabetes mellitus with hyperlipidemia (CMS/HCC) ([facility]/HCC) BI MAMMOGRAM SCREENING TOMOSYNTHESIS BILATERAL Routine 06/22/2024 2:30 PM EST LIPID PANEL, STANDARD Routine 11/25/2023 1:39 PM EDT HM PAP/HPV Routine 11/18/2015 from Last 3 Months or Most Recently Relevant to Health Maintenance Results * (ABNORMAL) Creatinine, Serum (03/13/2025 1:26 PM EDT) Creatinine, Serum 1.46(H) 0.5 - 1.4 mg/dL [facility] Estimated Glomerular Filt Rate 39 [facility] Comment:Chronic Kidney Disea se: Estimated GFR < 60 mL/min/1.72w2Tyccam Kidney Disease: Estimated GFR < 15 mL/min/1.73m2 03/13/2025 1:26 PM EDT 03/13/2025 1:26 PM EDT Generic External Data Provider LAB BLOOD ORDERAB LES Final Result Performing Organization Address [facility] Co de Phone Number [facility] [address] [place] [phone] * BUN (Blood Urea Nitrogen) (03/13/2025 1:26 PM EDT) Urea Nitrogen (BUN) 16 9 - 16 mg/dL [facility] 03/13/2025 1:26 PM EDT 03/13/2025 1:26 PM EDT Generic External Data Provider LAB BLOOD ORDERAB LES Final Result Performing Organization Address [facility] Phone Number [facility] [address] [place] [phone] * (ABNORMAL) Electrolyte Panel (03/13/2025 1:26 PM EDT) Sodium 139 135 - 145 mmol/L [facility] Potassium 3.9 3.3 - 5.1 mmol/L [facility] Chloride 105 96 - 108 mmol/L [facility] Carbon Dioxide 28 22 - 29 mmol/L [facility] Anion Gap 10(L) 12 - 20 [facility] 03/13/2025 1:26 PM EDT 03/13/2025 1:26 PM EDT Generic External Data Provider LAB BLOOD ORDERAB LES Final Result Performing Organization Address [facility] Co de Phone Number [facility] [address] [place] [phone] * (ABNORMAL) Protein Creatinine Ratio, Urine (03/13/2025 1:21 PM EDT) Creatinine, Urine 333.07 mg/dL [facility] Protein, Total, Random Urine 360(H) <12 mg/dL [facility] Protein/Creati nine Ratio, Ur 1.08(H) <0.2 [facility] Comment:The spot urine prote in:creatinine ratio may increase to 0.3during normal . 03/13/2025 1:21 PM EDT 03/13/2025 2:18 PM EDT Generic External Data Provider LAB URINE ORDERAB LES Final Result [facility] [address] [place] [phone] * (ABNORMAL) POCT Hgb A1c (03/08/2025 1:51 PM EDT) Hemoglobin A1C 6.4(A) 4.0 - 5.7 % QC Media Lot # [id number] Lot# Expiration Date [id number] Blood 03/08/2025 1:51 PM EDT Chapo Dial ANP POINT OF CARE TEST ENTER/EDIT OR DERABLES Final Result * POCT Glucose (03/08/2025 1:49 PM EDT) Glucose Blood, POC 130 60 - 200 mg/dL QC Media Lot # [id number] Lot# Expiration Date [id number] Blood Capillary blood specimen / Unknown 03/08/2025 1:49 PM EDT [facility] Tiffany ANP POINT OF CARE TEST ENTER/EDIT OR DERABLES Final Result * BI Mammogram Screening Tomosynthesis Bilateral (06/22/2024 2:30 PM EST) Anatomical Region Laterality Modality Breast Bilateral Mammography 06/22/2024 2:30 PM EST Narrative 07/01/2024 10:13 AM EST [facility] [address] [place] [address] Mammography Report Signed Patient: Caitlyn Hercules V MR#: [id number] : 1980 Acct:[id number] Age/Sex: 44 / F ADM Date: 06/22/24 Loc: MAMMO Attending Dr: Chapo Dial NP Ordering Physician: CHAPO DIAL NP Results: 2Benign Jerson ricardo Date of Service: 06/22/24 Follow Up: 1 Year From Orig inal Mammogram Procedure(s): MM tomosynthesis screening BI Accession Number(s): [id number] cc: CHAPO DIAL NP EXAMINATION: MM SCREENING [...] by: Amy Nino DO 07/01/2024 10:10 AM [facility] Dictated By: Amy Nino DO Signed By: <Electronically signed by Amy Nino DO in OV> 07/01/24 1010 DD/ 1430 TD/TT: 06/22/24 1457 Reading Interventionist: Procedure Note Donotuseinterpreter, Image - 07/01/2024 [facility] [address] [place] [address] Mammography Report Signed Patient: Caitlyn Hercules VMR#: [id number] : 1980Acct:[id number] Age/Sex: 44 / FADM Date: 06/22/24 Loc: MAMMO Attending Dr: Chapo Dial NP Ordering Physician: CHAPO DIAL NPResults: 2Benign Jerson dings Date of Service: 06/22/24Follow Up: 1 Year From Orig inal Mammogram Procedure(s): MM tomosynthesis screening BI Accession Number(s): [id number] cc: CHAPO DIAL GOLF CART ASSEMBLER EXAMINATION: MM SCREENING DIGITAL BREAST TOMOSYNTHESIS, BILATERAL [...] by: Amy Nino DO 07/01/2024 10:10 AM [facility] Dictated By: Amy Nino DO Signed By: <Electronically signed by Amy Nino DO in OV> 07/01/24 1010 DD/ 1430 TD/TT: 06/22/24 1457 Reading Interventionist: Chapo iDal ANP IMG BI PROCEDURES Final Result * (ABNORMAL) Lipid Panel, Standard (11/25/2023 1:39 PM EDT) Triglycerides 155(H) <150 mg/dL [facility] Comment:Desirable Triglyceri de: less than 150 mg/dLBorderline High Triglyceride 150-199 mg/dLHigh Triglyceride: 200-499 mg/dLVery High Triglyceride: greater than or equal to 5OO mg/dL Cholesterol 205(H) <200 mg/dL [facility] Comment:Desirable Cholestero l: less than 200 mg/dLBorderline High Cholesterol: 200-239 mg/dLHigh Cholesterol: greater than 239 mg/dL LDL Cholesterol Calculated 119(H) <100 mg/dL [facility] Comment:Desirable LDL: less than 100 [...] Provider LAB BLOOD ORDERAB LES Final Result [facility] [address] [place] [phone] * Pap Smear (11/18/2015) Pap Negative for intraephithelial lesion or malignancy Negative for intraephithelial lesion or malignancy, Other HPV Undetected 11/18/2015 Historical Provider HEALTH MAINTENANCE Final Result from Last 3 Months or Most Recently Relevant to Health Maintenance Insurance [employer] PPO Care Teams Front Desk Receptionist Relationship Specialty Start Date End Date Chapo Dial ANP [address] [place] [phone] PCP - General Family Medicine 07/30/20
--- OUTSIDE RECORDS SUMMARY | 2025-03-15 11:33 | XMS_ITS | Clinical Summary ---
Author Organization [facility] Address [address] [place] [address] Phone Care Team Providers Care Salvage Determiner Name Role Phone Tiffany Niki Perez NP Primary Care Provider [phone] Allergies Active Allergy Reactions Criticality Noted Date [...] Vaccine (#1) 2025 Insurance Medicaid [place] Medicaid [place] Care Teams Salvage Determiner Relationship Specialty Start Date End Date Niki Allen NP PCP - General Nurse Practitioner 01/13/22
--- OUTSIDE RECORDS SUMMARY | 2025-03-15 11:33 | XMS_ITS | Encounter Summary ---
Author Organization [employer] Address [address] [facility] 7t [place] [address] Care Team Providers Care Process Improvement Specialist Name Role Phone Tiffany Niki CORRALES Primary Care Provider [phone] Encounter Details Date Type Department Care Team [...] Description 04/11/2025 11:15 AM EDT Office Visit [facility] [address] [place], [place] [phone] Niki Allen, ANP [address] [place] [address] documented as of this encounter Procedures Procedure Name Priority Date/Time Associated Diagnosis Comments CREATININE, SERUM Routine 03/13/2025 1:2 6 PM EDT UREA NITROGEN (BUN) Routine 03/13/2025 1 :26 PM EDT ELECTROLYTE PANEL Routine 03/13/2025 1:2 6 PM EDT PROTEIN CREATININE RATIO, URINE Routine 03/13/2025 1:21 PM EDT documented in this encounter Results * (ABNORMAL) Creatinine, Serum (03/13/2025 1:26 PM EDT) Creatinine, Serum 1.46(H) 0.5 - 1.4 mg/dL [facility] Estimated Glomerular Filt Rate 39 [facility] Comment:Chronic Kidney Disea se: Estimated GFR < 60 mL/min/1.91f1Ohsbpc Kidney Disease: Estimated GFR < 15 mL/min/1.73m2 03/13/2025 1:26 PM EDT 03/13/2025 1:26 PM EDT Generic External Data Provider LAB BLOOD ORDERAB LES Final Result Performing Organization Address [facility] de Phone Number [facility] [address] [place] [phone] * BUN (Blood Urea Nitrogen) (03/13/2025 1:26 PM EDT) Pathologist [facility] Urea Nitrogen (BUN) 16 9 - 16 mg/dL [facility] 03/13/2025 1:26 PM EDT 03/13/2025 1:26 PM EDT Generic External Data Provider LAB BLOOD ORDERAB LES Final Result Performing Organization Address [place] [facility] Phone Number [facility] [address] [place] [phone] * (ABNORMAL) Electrolyte Panel (03/13/2025 1:26 PM EDT) [facility] Sodium 139 135 - 145 mmol/L [facility] Potassium 3.9 3.3 - 5.1 mmol/L [facility] Chloride 105 96 - 108 mmol/L [facility] Carbon Dioxide 28 22 - 29 mmol/L [facility] Anion Gap 10(L) 12 - 20 [facility] 03/13/2025 1:26 PM EDT 03/13/2025 1:26 PM EDT Generic External Data Provider LAB BLOOD ORDERAB LES Final Result Performing Organization Address [facility] de Phone Number [facility] [address] [place] [phone] * (ABNORMAL) Protein Creatinine Ratio, Urine (03/13/2025 1:21 PM EDT) Pathologist [facility] Creatinine, Urine 333.07 mg/dL [facility] Protein, Total, Random Urine 360(H) <12 mg/dL [facility] Protein/Creati nine Ratio, Ur 1.08(H) <0.2 [facility] Comment:The spot urine prote in:creatinine ratio may increase to 0.3during normal . 03/13/2025 1:21 PM EDT 03/13/2025 2:18 PM EDT us Generic External Data Provider LAB URINE ORDERAB LES Final Result [facility] [address] [place] [phone] documented in this encounter Visit Diagnoses Not on filedocumented in this encounter Additional Health Concerns Assessment Noted Time PHQ-9 Depression Total Score: 6 03/08/20 25 3:20 PM EDT documented as of this encounter Care Teams Process Improvement Specialist Relationship Specialty Start Date End Date Niki Allen ANP [address] [place] [address] PCP - General Family Medicine 07/30/20 documented as of this encounter
--- OUTSIDE RECORDS SUMMARY | 2025-03-15 11:33 | XMS_ITS | Encounter Summary ---
Author Organization [employer] Address [address] [place] [address] [address] [place] [address] Care Team Providers Care Admeasurer Name Role Phone Niki Allen Primary Care Provider [phone] Encounter Details Date Type Department Care Team (Late st Contact Info) Description 07/12/2022 Orders Only [facility] [address] [place] [address] [phone] Soraida Segundo LPN Social History Tobacco Use [...] Description 04/11/2025 11:15 AM EDT Office Visit [facility] [address] [place] [phone] Niki [place] ANP [address] [place] [address] documented as of this encounter Procedures Procedure [...] (04/18/2023 7:37 PM EDT) Color Urine Yellow [facility] Appearance Urine Cloudy [facility] PH 6.5 5.0 - 9.0 [facility] Glucose Urine UA Negative Negative mg/dL [facility] Urine Blood Negative Negative [facility] Specific [place] - Urine 1.020 1.005 - 1.025 [facility] Urine Protein 300 (3+)(A) Neg-Trace mg/dL [facility] Urine Ketones Negative Negative mg/dL [facility] Nitrite Urine Negative Negative [facility] Leukocyte Esterase Urine Negative Negative [facility] RBC Urine 0-2 0 - 2 /HPF [facility] Urine WBC 0-5 0 - 5 /HPF [facility] Urine Squamous Epithelial Cell 11-20 0 - 2 /HPF [facility] Urine Bacteria 2+ None Seen [facility] Hyaline Casts, Urine 3-5 0 - 2 /LPF [facility] 04/18/2023 7:37 PM EDT 04/18/2023 7:40 PM EDT Narrative [facility] - 04/18/2023 7:50 PM EDT [id number], Clean Catch us [facility] External Provider LAB URI NE ORDERABLES Final Result [facility] [address] [place] [address] [phone] * Sed Rate by Modified [place] (04/18/2023 2:12 PM EDT) Erythrocyte Sedimentation Rate 17 0 - 20 MM/HR [facility] Comment:Patients with polycy themia and many hemoglobin abnormalitiesmay have depressed sed rates whereas patients with anemiamay have elevated sed rates. 04/18/2023 2:12 PM EDT 04/18/2023 5:23 PM EDT [facility] External Provider LAB BLO OD ORDERABLES Final Result Performing Organization Address [facility]/ZIP Co de Phone Number [facility] [address] [place] [address] [phone] * TSH (04/18/2023 2:12 PM EDT) Pathologist [facility] Thyroid Stimulating Hormone 0.65 0.32 - 4.0 uIU/mL [facility] Comment:TSH 3rd Generation ( [facility]) 04/18/2023 2:12 PM EDT 04/18/2023 2:16 PM EDT [facility] External Data Provider LAB BLOOD ORDERAB LES Final Result Performing Organization Address [facility]/ZIP Co de Phone Number [facility] [address] [place] [address] [phone] * (ABNORMAL) Basic Metabolic Panel (04/18/2023 2:12 PM EDT) Pathologist [facility] Sodium 141 135 - 145 mmol/L [facility] Potassium 3.9 3.3 - 5.1 mmol/L [facility] Chloride 102 96 - 108 mmol/L [facility] Carbon Dioxide 28 22 - 29 mmol/L [facility] Anion Gap 15 12 - 20 [facility] Urea Nitrogen (BUN) 12 9 - 16 mg/dL [facility] Creatinine, Serum 1.23 0.5 - 1.4 mg/dL [facility] Creatinine Clr Calc Pharmacy 77.2 [facility] Comment:Provided height and weight: 165.1 cm,119.748 kg.eGFR (calculated from the MDRD study equation) and eCrCl(calculated from the Cockcroft-Gault equation) are based ondifferent parameters and may not yield comparable results.If eCrCl result is absurd, please check patient'sheight/weight. Estimated Glomerular Filt Rate 48 [facility] Comment:NOTE: For -Am erican individuals, multiply the result by 1.210.Chronic Kidney Disease: Estimated GFR < 60 mL/min/1.02l0Sjqnso Kidney Disease: Estimated GFR < 15 mL/min/1.73m2 Glucose 144(H) 60 - 115 mg/dL [facility] Calcium 9.3 8.4 - 10.2 mg/dL [facility] 04/18/2023 2:12 PM EDT 04/18/2023 2:16 PM EDT us Generic External Data Provider LAB BLOOD ORDERAB LES Final Result [facility] [address] [place] [address] [phone] * (ABNORMAL) Hepatic Function Panel (04/18/2023 2:12 PM EDT) Bilirubin, Total 0.4 0.0 - 1.0 mg/dL [facility] Bilirubin, Direct 0.1 0.0 - 0.5 mg/dL [facility] Aspartate Amino Transferase 20 5 - 31 U/L [facility] Alanine Aminotransferase 19 0 - 31 U/L [facility] Total Protein 8.1(H) 6.5 - 8.0 g/dL [facility] Albumin Level 3.9 3.5 - 5.0 g/dL [facility] Alkaline Phosphatase 78 39 - 117 U/L [facility] 04/18/2023 2:12 PM EDT 04/18/2023 2:16 PM EDT us [facility] External Provider LAB BLO OD ORDERABLES Final Result [facility] [address] [place] [address] [phone] * (ABNORMAL) CBC auto differential (04/18/2023 2:12 PM EDT) White Blood Count 10.5 4.8 - 10.8 X10*3/uL [facility] Red Blood Count 4.97 4.20 - 5.50 X10*6/uL [facility] Hemoglobin 13.3 12.0 - 16.0 g/dl [facility] Hematocrit 42.1 37.0 - 47.0 % [facility] Mean Corpuscular Volume 84.7 80.0 - 98.0 fL [facility] Mean Corpuscular Hemoglobin 26.8(L) 27.0 - 33.0 pg [facility] Mean Corpuscular HGB Conc 31.6 31.0 - 35.0 g/dl [facility] Red Cell Distribution Width 17.0(H) 11.0 - 16.0 % [facility] Platelet Count 298 160 - 400 X10*3/uL [facility] Mean Platelet Volume 10.9 9.4 - 12.3 fL [facility] Neutrophils Percent Auto 61.6 45 - 73 % [facility] Imm Gran Pct Auto 0.2 0.0 - 0.4 % [facility] Lymphocytes Percent Auto 28.1 20 - 40 % [facility] Monocytes Percent Auto 8.0 2 - 11 % [facility] Eosinophils Percent Auto 1.2 0 - 4 % [facility] Basophils Percent Auto 0.9 0 - 2 % [facility] NRBC Pct Auto 0.0 0.0 - 0.2 /100WBC [facility] Neutrophils Absolute Auto 6.4 2.0 - 8.3 x10*3/uL [facility] Imm Gran Abs Auto 0.02 0.00 - 0.03 X10*3/uL [facility] Lymphocytes Absolute Auto 2.9 1.2 - 4.9 X10*3/uL [facility] Monocytes Absolute Auto 0.8 0.1 - 1.2 X10*3/uL [facility] Eosinophils Absolute Auto 0.1 0.0 - 0.4 X10*3/uL [facility] Basophils Absolute Auto 0.1 0.0 - 0.2 X10*3/uL [facility] NRBC Abs Auto 0.000 0.0 - 0.012 X10*3/uL [facility] 04/18/2023 2:12 PM EDT 04/18/2023 2:16 PM EDT [facility] External Provider LAB BLO OD ORDERABLES Final Result Performing Organization Address [facility] Co de Phone Number [facility] [address] [place] [address] [phone] * (ABNORMAL) Protein Creatinine Ratio, Urine (09/09/2022 10:57 AM EDT) Creatinine, Urine 49.94 mg/dL [facility] Protein, Total, Random Urine 240(H) <12 mg/dL [facility] Protein/Creati nine Ratio, Ur 4.81(H) <0.2 [facility] Comment:The spot urine prote in:creatinine ratio may increase to 0.3during normal . 09/09/2022 10:5 7 AM EDT 09/09/2022 12:07 PM EDT [facility] External Provider LAB URI NE ORDERABLES Final Result Performing Organization Address [facility] Co de Phone Number [facility] [address] [place] [address] [phone] documented in this encounter Visit Diagnoses Not on filedocumented in this encounter Care Teams Admeasurer Relationship Specialty Start Date End Date Niki Allen ANP [address] [place] [phone] PCP - General Family Medicine 07/30/20 documented as of this encounter
--- OUTSIDE RECORDS SUMMARY | 2025-03-15 11:33 | XMS_ITS | Encounter Summary ---
Author Organization [employer] Address [address] [place] [address] 7 [place] [address] Care Team Providers Care Rubber Thread Spooler Name Role Phone Niki [place] Primary Care Provider [phone] Reason for Visit * Reason Comments Med Refill Encounter Details Date Type Department Care Team ([facility] st Contact Info) Description 08/16/2023 Refill [facility] [address] [place], [place] [phone] Niki Allen ANP [address] [place], [place] [phone] Mixed hyperlipidemia; Non-seasonal allergic rhinitis due to [...] Description 04/11/2025 11:15 AM EDT Office Visit [facility] [address] [place] [address] Niki Allen ANP [address] [place] [address] documented as of this encounter Visit Diagnoses Diagnosis Mixed hyperlipidemia Non-seasonal allergic rhinitis due to other allergic trigger documented in this encounter Care Teams Rubber Thread Spooler Relationship Specialty Start Date End Date Niki Allen ANP [address] [place] [phone] PCP - General Family Medicine 07/30/20 documented as of this encounter
== END 2025-03-15 11:02 | disposition home or self-care (01) ==
LOC: HO.HKA 10:16
PROVIDERS: PCP Nurse Practitioner Primary Care; Visit Provider Internal Medicine Nephrology
DX: I10 Essential (primary) hypertension (principal); R30.0 Dysuria; N02.8 Recurrent and persistent hematuria with other morphologic changes; N18.31 Chronic kidney disease, stage 3a; R80.8 Other proteinuria
CPT/HCPCS: 99214

== ENCOUNTER 2025-03-15 11:17 | Outpatient (REF) | payer OTHER, SELFPAY | END 2025-03-15 11:18 | disposition home or self-care (01) | LOC: HO.10HDLNP 11:17 | PROVIDERS: Visit Provider Internal Medicine Nephrology | DX: R30.0 Dysuria (principal) | CPT/HCPCS: 87086 ==

== ENCOUNTER 2025-04-17 11:53 | Outpatient (REF) | payer OTHER, SELFPAY ==
--- OUTSIDE RECORDS SUMMARY | 2025-04-11 11:15 | XMS_ITS | Encounter Summary ---
Author Organization [employer] Address [address] [place] [address] 7 [place] [address] Care Team Providers Care Laminating Machine Tender Name Role Phone Niki [place] Primary Care Provider [phone] Reason for Visit * Reason Comments Follow-up Encounter Details Date Type Department Care Team (Latest Contact Info) Description 04/11/2025 11:15 AM EDT Office Visit [facility] [address] [place], [place] [phone] Niki [place] ANP [address] [place] [address] Type 2 diabetes mellitus with hyperlipidemia (HCC) (Primary Dx); ENRIKE (acute kidney injury); Encounter for immunization Social History Tobacco Use Types Packs/Day Years [...] Sign Reading Time Taken Comments Blood Pressure 130/80 04/11/2025 11:24 AM EDT Pulse 72 04/11/2025 11:24 AM EDT Temperature 36.3 C (97.3 F) 04/11/2025 11:24 AM EDT Respiratory Rate 15 04/11/2025 11:24 AM EDT Oxygen Saturation 95% 04/11/2025 11:24 AM EDT Inhaled Oxygen Concentration - - Weight 112 kg (246 lb) 04/11/2025 11:24 AM EDT Height 165.1 cm (5' 5 ) 04/11/2025 11:24 AM EDT Body Mass Index 40.94 04/11/2025 11:24 AM EDT documented in this encounter Plan of Treatment Scheduled Orders Name Type Priority Associated Diagnoses Orde r Schedule Basic Metabolic Panel Lab Routine ENRIKE (acute kidney injury) Expected: 04/11/2025 (Approximate), Expires: 04/11/2026 documented as of this encounter Visit Diagnoses Diagnosis Type 2 diabetes mellitus with hyperlipidemia (HCC)- Primary ENRIKE (acute kidney injury) Encounter for immunization documented in this encounter Additional Health Concerns Assessment Noted Time PHQ-9 Depression Total Score: 6 03/08/20 25 3:20 PM EDT documented as of this encounter Care Teams Laminating Machine Tender Relationship Specialty Start Date End Date Niki Allen ANP [address] [place] [address] PCP - General Family Medicine 07/30/20 documented as of this encounter
[2025-04-17 14:22] LABS: Microalbum/Creatinine Ratio Ur 341.5 ug/mg cr (<30)
--- OUTSIDE RECORDS SUMMARY | 2025-04-17 15:17 | XMS_ITS | Clinical Summary ---
Author Organization [address] [place] [address] Address [address] [place] [address] Phone Care Team Providers Care Hand Assembler For Puller Over Name Role Phone AllenNiki EVELINA Primary Care Provider [phone] Allergies Active Allergy Reactions Criticality Noted Date [...] needed for shortness of breath. 4 Active tirzepatide (Mounjaro) 2.5 mg/0.5 mL injection Inject 0.5 mL (2.5 mg total) under the skin every 7 (seven) days. 2 mL Active Active Problems Problem Noted Date Diagnosed Date Acute non-recurrent sinusitis 07/18/2024 Type 2 diabetes mellitus wit h hyperlipidemia ([facility] V24, [facility] V28) 02/13/2024 Overview (07/19/2024): new dx 01/2024, metformin 500mg BID, lantus 10 units with plan to increase Cigarette nicotine dependence without complicati on 08/15/2023 Mixed hyperlipidemia 08/15/2023 Hypoxia 12/08/2022 Pulmonary hypertension ([facility] V24, [facility] V28 ) 12/08/2022 Overview (07/19/2024): Follows w/ [facility] Cards BP meds: Verapamil 180mg ER 2 [...] Nephrectomy Partial Nephrectomy Malignant tumor of kidney bonnie juarez ([facility] V24, [facility] V28) 01/28/2014 Overview (07/19/2024): Renal Carcinoma Encounters Date Type Department Care Team Description 04/05/2025 10:30 AM EDT Office Visit Bariatric Surgery - [address] [place] [address] Liv Joshi PA Class 3 severe obesity due to excess calories with serious comorbidity and body mass index (BMI) of 40.0 to 44.9 in adult ([facility] V24, [facility] V28) (Primary Dx); Type 2 diabetes mellitus with hyperlipidemia ([facility] V24, [facility] V28); Mixed hyperlipidemia; Primary hypertension from Last 3 Months Immunizations Immunization Administration Dates Next Due Hepatitis B Pediatric [...] Sexual Orientation Not on file Obstetrics History Last Filed Vital Signs Vital Sign Reading Time Taken Comments Blood Pressure 158/87 04/05/2025 10:18 AM EDT Pulse 81 04/05/2025 10:18 AM EDT Temperature - - Respiratory Rate - - Oxygen Saturation - - Inhaled Oxygen Concentration - - Weight 112 kg (246 lb) 04/05/2025 10:18 AM EDT Height 160 cm (5' 3 ) 04/05/2025 10:18 AM EDT Body Mass Index 43.58 04/05/2025 10:18 AM EDT Plan of Treatment Upcoming Encounters Date Type Department Care Team (Late st Contact Info) Description 06/27/2025 10:00 AM EST Nutrition Bariatric Surgery - [address] [phone] Zuly Lozano, PRANAY [address] [place] [address] 09/10/2025 11:00 AM EDT Office Visit Bariatric Surgery - [address] [address] Liv Cartagena PA [address] [place] [address] Health Maintenance Due Date Last Done Comments Breast Cancer Screening 1980 Diabetes: Annual Foot Exam 1990 Diabetes: Annual Retina Eye Exam 1990 Cervical Cancer Screening: Pap Smear 2001 HPV Vaccines (1 - 3-dose SCDM series) 2007 Diabetes: Annual GFR (Glomerular Filtration Rate) 08/29/2015 08/28/2014 HIV Screening 01/20/2024 Hepatitis C Screening 01/20/2024 Social Influencers of Health Screening 01/20/2024 Depression Screening 06/20/2024 Diabetes: Annual Urine Albumin-Creatinine Ratio (uACR) 07/19/2024 Hypertension/CHF/CAD Annual BMP Blood Test 07/19/2024 08/28/2014 COVID-19 Vaccine ( season) 2025 11/04/2022, 11/28/2020, 10/31/2020 Influenza Vaccine (#1) 2025 , 05/28/2019, 05/22/2018, Additional history exists Diabetes: Blood Sugar Control Test (HGBA1C) 09/05/2025 03/08/2025, 06/01/2024 Cholesterol Screening (Lipid Panel) 11/24/2028 11/25/2023 DTaP,Tdap,and Td Vaccines (4 - Td or Tdap) 02/24/2031 02/24/2021, 12/31/2010, 04/02/2002 RSV Immunization Adult Patients (1 - 1-dose 75+ series) 2055 Hepatitis B Vaccines Completed 01/08/1998, 08/14/1997, 04/17/1997 Pneumococcal Vaccine: Pediatrics (0 to 5 Years) and At-Risk Patients (6 to 49 Years) Completed 08/03/2024, 11/01/2018, 12/31/2010, Additional history [...] patient's age to complete this topic Insurance [employer] Care Teams Hand Assembler For Puller Over Relationship Specialty Start Date End Date Niki Allen NP [address] [place] [phone] PCP - General 07/19/24
--- OUTSIDE RECORDS SUMMARY | 2025-04-17 15:17 | XMS_ITS | Clinical Summary ---
Author Organization [facility] Address [address] [place] [address] Phone Care Team Providers Care Crayon Grader Name Role Phone Tiffany Niki Perez NP Primary Care Provider [phone] Allergies Active Allergy Reactions Criticality Noted Date [...] Vaccine (#1) 2025 Insurance Medicaid [place] Medicaid [place] Care Teams Crayon Grader Relationship Specialty Start Date End Date Niki Allen NP PCP - General Nurse Practitioner 01/13/22
--- OUTSIDE RECORDS SUMMARY | 2025-04-17 15:17 | XMS_ITS | Encounter Summary ---
Author Organization [employer] Address [address] [place] [address] 7 [place] [address] Care Team Providers Care Paint Roller Cover Machine Setter Name Role Phone Niki Allen Primary Care Provider [phone] Encounter Details Date Type Department Care Team ([facility] st Contact Info) Description 03/18/2025 Results Follow-Up [facility] [address] [place], [place] [phone] Niki Allen ANP [address] [place] [address] Electrolyte Panel, BUN (Blood Urea Nitrogen), Creatinine, Serum, Protein Creatinine Ratio, Urine Social History Tobacco Use Types Packs/Day Years [...] documented as of this encounter Care Teams Paint Roller Cover Machine Setter Relationship Specialty Start Date End Date Niki Allen ANP [address] [place] [address] PCP - General Family Medicine 07/30/20 documented as of this encounter
--- OUTSIDE RECORDS SUMMARY | 2025-04-17 15:17 | XMS_ITS | Encounter Summary ---
Author Organization [employer] Address [address] [place] [address] 7 [place] [address] Care Team Providers Care Book Sorter Name Role Phone Allen Niki CORRALES Primary Care Provider [phone] Encounter Details Date Type Department Care Team ([facility] st Contact Info) Description 12/13/2024 Orders Only [facility] [address] [place], [place] [phone] Brianna Barry MD [address] [place] [address] Social History Tobacco Use Types Packs/Day Years [...] documented as of this encounter Care Teams Book Sorter Relationship Specialty Start Date End Date Niki [place] ANP [address] [place] [phone] PCP - General Family Medicine 07/30/20 documented as of this encounter
--- OUTSIDE RECORDS SUMMARY | 2025-04-17 15:17 | XMS_ITS | Encounter Summary ---
Author Organization [employer] Address [address] [place] [address] 7[address] [place] [address] Care Team Providers Care Head Strength And Conditioning Coach Name Role Phone Tiffany Niki CORRALES Primary Care Provider [phone] Encounter Details Date Type Department Care Team (Late st Contact Info) Description 07/12/2022 Orders Only [facility] MED[facility]INE [address] [place] [address] Soraida Segundo LPN Social History Tobacco Use [...] (04/18/2023 7:37 PM EDT) Color Urine Yellow [facility] Appearance Urine Cloudy [facility] PH 6.5 5.0 - 9.0 [facility] Glucose Urine UA Negative Negative mg/dL [facility] Urine Blood Negative Negative [facility] Specific [place] - Urine 1.020 1.005 - 1.025 [facility] Urine Protein 300 (3+)(A) Neg-Trace mg/dL [facility] Urine Ketones Negative Negative mg/dL [facility] Nitrite Urine Negative Negative [facility] Leukocyte Esterase Urine Negative Negative [facility] RBC Urine 0-2 0 - 2 /HPF [facility] Urine WBC 0-5 0 - 5 /HPF [facility] Urine Squamous Epithelial Cell 11-20 0 - 2 /HPF [facility] Urine Bacteria 2+ None Seen [facility] Hyaline Casts, Urine 3-5 0 - 2 /LPF [facility] 04/18/2023 7:37 PM EDT 04/18/2023 7:40 PM EDT Narrative [facility] - 04/18/2023 7:50 PM EDT [id number], Clean Catch us [facility] External Provider LAB URI NE ORDERABLES Final Result [facility] [address] [place] [address] [phone] * Sed Rate by Modified [place] (04/18/2023 2:12 PM EDT) Erythrocyte Sedimentation Rate 17 0 - 20 MM/HR [facility] Comment:Patients with polycy themia and many hemoglobin abnormalitiesmay have depressed sed rates whereas patients with anemiamay have elevated sed rates. 04/18/2023 2:12 PM EDT 04/18/2023 5:23 PM EDT [facility] External Provider LAB BLO OD ORDERABLES Final Result Performing Organization Address [facility]/ZIP Co de Phone Number [facility] [address] [place] [address] [phone] * TSH (04/18/2023 2:12 PM EDT) Thyroid Stimulating Hormone 0.65 0.32 - 4.0 uIU/mL [facility] Comment:TSH 3rd Generation ( [facility]) 04/18/2023 2:12 PM EDT 04/18/2023 2:16 PM EDT [facility] External Data Provider LAB BLOOD ORDERAB LES Final Result Performing Organization Address [facility]/ZIP Co de Phone Number [facility] [address] [place] [address] [phone] * (ABNORMAL) Basic Metabolic Panel (04/18/2023 2:12 PM EDT) Sodium 141 135 - 145 mmol/L [facility] Potassium 3.9 3.3 - 5.1 mmol/L [facility] Chloride 102 96 - 108 mmol/L [facility] Carbon Dioxide 28 22 - 29 mmol/L [facility] Anion Gap 15 12 - 20 [facility] Urea Nitrogen (BUN) 12 9 - 16 mg/dL [facility] Creatinine, Serum 1.23 0.5 - 1.4 mg/dL [facility] Creatinine Clr Calc Pharmacy 77.2 [facility] Comment:Provided height and weight: 165.1 cm,119.748 kg.eGFR (calculated from the MDRD study equation) and eCrCl(calculated from the Cockcroft-Gault equation) are based ondifferent parameters and may not yield comparable results.If eCrCl result is absurd, please check patient'sheight/weight. Estimated Glomerular Filt Rate 48 [facility] Comment:NOTE: For -Am erican individuals, multiply the result by 1.210.Chronic Kidney Disease: Estimated GFR < 60 mL/min/[id number] Kidney Disease: Estimated GFR < 15 mL/min/1.73m2 Glucose 144(H) 60 - 115 mg/dL [facility] Calcium 9.3 8.4 - 10.2 mg/dL [facility] 04/18/2023 2:12 PM EDT 04/18/2023 2:16 PM EDT [facility] External Data Provider LAB BLOOD ORDERAB LES Final Result Performing Organization Address [facility] Co de Phone Number [facility] [address] [place] [phone] * (ABNORMAL) Hepatic Function Panel (04/18/2023 2:12 PM EDT) Bilirubin, Total 0.4 0.0 - 1.0 mg/dL [facility] Bilirubin, Direct 0.1 0.0 - 0.5 mg/dL [facility] Aspartate Amino Transferase 20 5 - 31 U/L [facility] Alanine Aminotransferase 19 0 - 31 U/L [facility] Total Protein 8.1(H) 6.5 - 8.0 g/dL [facility] Albumin Level 3.9 3.5 - 5.0 g/dL [facility] Alkaline Phosphatase 78 39 - 117 U/L [facility] 04/18/2023 2:12 PM EDT 04/18/2023 2:16 PM EDT [facility] External Provider LAB BLO OD ORDERABLES Final Result Performing Organization Address [facility] Co de Phone Number [facility] [address] [place] [phone] * (ABNORMAL) CBC auto differential (04/18/2023 2:12 PM EDT) White Blood Count 10.5 4.8 - 10.8 X10*3/uL [facility] Red Blood Count 4.97 4.20 - 5.50 X10*6/uL [facility] Hemoglobin 13.3 12.0 - 16.0 g/dl [facility] Hematocrit 42.1 37.0 - 47.0 % [facility] Mean Corpuscular Volume 84.7 80.0 - 98.0 fL [facility] Mean Corpuscular Hemoglobin 26.8(L) 27.0 - 33.0 pg [facility] Mean Corpuscular HGB Conc 31.6 31.0 - 35.0 g/dl [facility] Red Cell Distribution Width 17.0(H) 11.0 - 16.0 % [facility] Platelet Count 298 160 - 400 X10*3/uL [facility] Mean Platelet Volume 10.9 9.4 - 12.3 [facility] Neutrophils Percent Auto 61.6 45 - 73 % [facility] Imm Gran Pct Auto 0.2 0.0 - 0.4 % [facility] Lymphocytes Percent Auto 28.1 20 - 40 % [facility] Monocytes Percent Auto 8.0 2 - 11 % [facility] Eosinophils Percent Auto 1.2 0 - 4 % [facility] Basophils Percent Auto 0.9 0 - 2 % [facility] NRBC Pct Auto 0.0 0.0 - 0.2 /100WBC [facility] Neutrophils Absolute Auto 6.4 2.0 - 8.3 x10*3/uL [facility] Imm Gran Abs Auto 0.02 0.00 - 0.03 X10*3/uL [facility] Lymphocytes Absolute Auto 2.9 1.2 - 4.9 X10*3/uL [facility] Monocytes Absolute Auto 0.8 0.1 - 1.2 X10*3/uL [facility] Eosinophils Absolute Auto 0.1 0.0 - 0.4 X10*3/uL [facility] Basophils Absolute Auto 0.1 0.0 - 0.2 X10*3/uL [facility] NRBC Abs Auto 0.000 0.0 - 0.012 X10*3/uL [facility] 04/18/2023 2:12 PM EDT 04/18/2023 2:16 PM EDT [facility] External Provider LAB BLO OD ORDERABLES Final Result Performing Organization Address [facility] de Phone Number [facility] [address] [place] [address] [phone] * (ABNORMAL) Protein Creatinine Ratio, Urine (09/09/2022 10:57 AM EDT) Creatinine, Urine 49.94 mg/dL [facility] Protein, Total, Random Urine 240(H) <12 mg/dL [facility] Protein/Creati nine Ratio, Ur 4.81(H) <0.2 [facility] Comment:The spot urine prote in:creatinine ratio may increase to 0.3during normal . 09/09/2022 10:5 7 AM EDT 09/09/2022 12:07 PM EDT [facility] External Provider LAB URI NE ORDERABLES Final Result Performing Organization Address [facility] de Phone Number [facility] [address] [place] [address] [phone] documented in this encounter Visit Diagnoses Not on filedocumented in this encounter Care Teams Head Strength And Conditioning Coach Relationship Specialty Start Date End Date Niki Allen ANP [address] [place] [phone] PCP - General Family Medicine 07/30/20 documented as of this encounter
--- OUTSIDE RECORDS SUMMARY | 2025-04-17 15:17 | XMS_ITS | Encounter Summary ---
Author Organization [employer] Address [address] [place] [address] 7 [place] [address] Care Team Providers Care Building Materials Sales Attendant Name Role Phone Niki Allen Primary Care Provider [phone] Reason for Visit * Reason Comments Med Refill Encounter Details Date Type Department Care Team ([facility] st Contact Info) Description 04/03/2025 Refill [facility] MEDICINE [address] [place], [place] [phone] Niki Allen ANP [address] [place], [place] [phone] Insomnia, unspecified type Social History Tobacco Use [...] as of this encounter Visit Diagnoses Diagnosis Insomnia, unspecified type documented in this encounter Additional Health Concerns Assessment Noted Time PHQ-9 Depression Total Score: 6 03/08/20 25 3:20 PM EDT documented as of this encounter Care Teams Building Materials Sales Attendant Relationship Specialty Start Date End Date Niki Allen ANP [address] [place] [phone] PCP - General Family Medicine 07/30/20 documented as of this encounter
--- OUTSIDE RECORDS SUMMARY | 2025-04-17 15:17 | XMS_ITS | Encounter Summary ---
Author Organization [employer] Address [address] [place] [address] 7 [place] [address] Care Team Providers Care Washer Meat Name Role Phone Niki Allen Primary Care Provider [phone] Reason for Visit * Reason Comments Med Refill Encounter Details Date Type Department Care Team ([facility] st Contact Info) Description 08/16/2023 Refill [facility] MED[facility]INE [address] [place], [place] [phone] Niki Allen ANP [address] [place], [place] [phone] Mixed hyperlipidemia; Non-seasonal allergic rhinitis due to [...] trigger documented in this encounter Care Teams Washer Meat Relationship Specialty Start Date End Date Niki Allen ANP [address] [place] [phone] PCP - General Family Medicine 07/30/20 documented as of this encounter
--- OUTSIDE RECORDS SUMMARY | 2025-04-17 15:17 | XMS_ITS | Encounter Summary ---
Author Organization [employer] Address [address] [place] [address] [address] [place] [address] Care Team Providers Care Service Rig Operator Name Role Phone Niki Allen Primary Care Provider [phone] Reason for Visit * Reason Onset Date Comments Call Back Request 04/18/2023 Encounter Details Date Type Department Care Team ([facility] st Contact Info) Description 04/18/2023 Telephone [facility] MEDICINE [address] [place], [place] [phone] Niki Allen ANP [address] [place] [address] Call Back Request Social History Tobacco Use [...] notes were fax over same day 04/17/2023, Web Assistant transferred over to HIM to verify if notes were received. Please contact Yamila at [phone] documented in this encounter Plan of Treatment Not on file documented as of this encounter Visit Diagnoses Not on filedocumented in this encounter Care Teams Service Rig Operator Relationship Specialty Start Date End Date Niki Allen ANP [address] [place] [phone] PCP - General Family Medicine 07/30/20 documented as of this encounter
--- OUTSIDE RECORDS SUMMARY | 2025-04-17 15:17 | XMS_ITS | Clinical Summary ---
Author Organization [employer] Address [address] [place] [address] 7[address] [place] [address] Care Team Providers Care Assembler Golf Wood Head Name Role Phone Tiffany Chapo CORRALES Primary Care Provider [phone] Allergies Active Allergy Reactions Criticality Noted Date [...] TO 28 DAYS 30 g 1 Active pen needle 32G x 4 mm [...] stripIndications :Type 2 diabetes mellitus with hyperlipidemia (HCC) Use to test blood sugar 3 times daily 100 each 025 2025 Active Lancets miscIndications: Type 2 diabetes mellitus with hyperlipidemia (HCC) Use to test blood sugar 3 times daily 100 each Active Alcohol Swabs 70 % padsIndications: Type 2 diabetes mellitus with hyperlipidemia (HCC) Use to test blood sugar 3 times daily 100 each 025 Active Blood Glucose Monitoring Suppl (FreeStyle [place] Lite) w/Device kitIndications:T ype 2 diabetes mellitus with hyperlipidemia (HCC) Use to test blood sugar 3 times daily 1 kit Active loratadine (Claritin) 10 MG tabletIndication s:Non-seasonal [...] tabletIndication s:Type 2 diabetes mellitus with hyperlipidemia (HCC) TAKE 1 TABLET BY MOUTH TWICE A [...] not swallow. 1 each 1 025 Active Blood Pressure kitIndications:B enign essential hypertension,Pul monary hypertension (CMS/HCC) (HCC) 1 kit Once per day. 1 kit 025 Active traZODone (Desyrel) 100 MG tabletIndication s:Insomnia, unspecified type TAKE 2 TABLETS BY MOUTH AT BEDTIME NEEDED FOR SLEEP 180 tablet 1 025 Active traZODone (Desyrel) 100 MG tabletIndication s:Insomnia, unspecified type TAKE 2 TABLETS BY MOUTH AT BEDTIME NEEDED FOR SLEEP 180 tablet 1 025 2024 Discontinued( Reorder (will not trigger notification to Pharmacy)) Active Problems Problem Noted Date Diagnosed Date Status post total hysterectomy 01/21/2025 History of endometrial cancer 08/03/2024 Overview (08/03/2024): s/p total hysterectomy 2013 Acute non-recurrent sinusitis 07/18/2024 Assessment & Plan (07/18/2024 11:20 AM EST): -discontinue OTC nasal spray -Augmentin x 10 days -continue fluticasone nasal spray -start loratadine -[place] on environmental triggers changes -advise may take a few weeks to resolve but let us know if symptoms persist after 2 weeks Class 3 severe obesity with serious comorbidity and body mass index (BMI) of 40.0 to 44.9 in adult 03/30/2024 Type 2 diabetes mellitus with hyperlipidemia Overview (02/13/2024): new dx 01/2024, metformin 500mg [...] Plan: BG monitor to be purchased at [facility] (better cost d/t lack [...] 08/15/2023 Papilledema 04/26/2023 Hypoxia 12/08/2022 Pulmonary hypertension (CMS/HCC) 12/08/2022 Overview (08/15/2023): Follows w/ C Cards [...] Encounters Date Type Department Care Team Description 04/11/2025 11:15 AM EDT Office Visit [address] [address] Chapo Dial ANP Type 2 diabetes mellitus with hyperlipidemia (HCC) (Primary Dx); ENRIKE (acute kidney injury); Encounter for immunization 04/11/2025 Travel 04/09/[address] [address] Chapo Dial ANP chart prep 04/08/2025 11:00 AM EDT Telemedicine [address] [address] Kassidy Armando RN Pulmonary hypertension (CMS/HCC) (HCC) 04/08/[address] [address] Chapo Dial ANP Insomnia, unspecified type 04/08/2025 Travel 04/03/2025 Refill [facility] [place] [address] Chapo Dial ANP Insomnia, unspecified type 03/19/2025 Refill [facility] [place] [address] Chapo Dial ANP Insomnia, unspecified type 03/18/2025 Results Follow-Up [address] [address] Chapo Dial ANP Electrolyte Panel, BUN (Blood Urea Nitrogen), Creatinine, Serum, Protein Creatinine Ratio, Urine 03/15/2025 11:30 AM EDT Telemedicine [facility] [place] [address] Shabana Lyle RN Benign essential hypertension 03/15/2025 Travel 03/13/2025 Orders Only GENERIC EXTERNAL DATA DEPARTMENT Provider, Generic External Data 03/08/2025 1:45 PM EDT Office Visit [address] [address] Chapo Dial ANP Healthcare maintenance (Primary Dx); Type 2 diabetes mellitus with hyperlipidemia (CMS/HCC) (CMS/HCC); Benign essential hypertension; Pulmonary hypertension (CMS/HCC); Mild persistent asthma without complication; Insomnia, unspecified type; Class 3 severe obesity with serious comorbidity and body mass index (BMI) of 40.0 to 44.9 in adult; Cigarette nicotine dependence without complication; IgA nephropathy; Asymptomatic hypertensive urgency 03/08/2025 Travel 03/08/2025 Refill [facility] [place] [address] Chapo Dial ANP Type 2 diabetes mellitus with hyperlipidemia (CMS/HCC) (CMS/HCC) 03/07/[address] [address] Chapo Dial ANP chart prep 03/01/2025 Patient Outreach [address] [address] Chapo Dial ANP Pre-visit Planning (SDOH screening negative and Tobacco screening negative) 01/17/2025 Refill [facility] [address] [place] [phone] Chapo Dial, ANTONI Mixed hyperlipidemia from Last 3 Months Immunizations Immunization Administration Dates Next Due Hep B, Adolescent or Pediatric 01/08/1998,1997,04/17/1997 Influenza injectable quadriv alent IIV4 with preservative 03/09/2017,04/29/2016 Influenza injectable quadriv alent preservative free 05/28/2019,05/22/2018 Influenza, IIV3, injectable 03/26/2014 Influenza, Split (incl. jr fied surface antigen) 03/30/2013,03/09/2012 Influenza, seasonal, injecta ble, preservative free 04/11/2025,06/01/2024 Moderna Covid-19 Vaccine 6+ Bivalent 11/04/2022 Pneumococcal [...] Maternal Grandmother Carmina Cooper Colon Mother Umm Abram Mother's Brother Dru Valverde Social History Tobacco [...] Mass Index 40.94 04/11/2025 11:24 AM EDT Plan of Treatment Health Maintenance Due Date Last Done Comments HIV Screening 1980 Diabetes: Foot Exam 1990 Eye Exam 1990 HPV Vaccines (1 - 3-dose series) 1995 Hepatitis C Screening 1998 Lipid Panel 11/24/2024 11/25/2023, 11/09/2022 COVID-19 Vaccine ( season) 2025 11/04/2022, 11/28/2020, 10/31/2020 Mammogram 06/22/2025 06/22/2024, 08/2024, 06/22/2024, Additional history exists Diabetes: Hemoglobin A1C 09/05/2025 025, 06/01/2024, 02/13/2024, Additional history exists SDOH Screening 03/01/2026 03/01/2025 Alcohol/Substance Use Screening 03/08/2026 03/08/2025 Depression Screening 03/08/2026 03/08/2025, 03/08/20 25 Disability Screening 03/08/2026 03/08/2025 Family Planning (PISQ) 03/11/2026 03/11/2025 Diabetes: Urine Protein Screening 03/13/2026 04/17/2025, 03/13/2025, 08/06/2024, Additional history exists Tobacco Screening 04/11/2026 04/11/2025 Zoster Vaccines (1 of 2) 2030 DTaP/Tdap/Td [...] Completed 08/03/2024, 11/01/2018, 12/31/2010, Additional history exists Influenza Vaccine Completed 04/11/2025, , 05/28/2019, Additional history exists HIB Vaccines Aged Out [...] Procedure Name Priority Date/Time Associated Diagnosis Comments ALBUMIN, RANDOM URINE W/CREATININE Routine 04/17/2025 12:02 PM EDT Type 2 diabetes mellitus with hyperlipidemia (HCC) CREATININE, SERUM Routine 03/13/2025 1:2 6 PM [...] 2 diabetes mellitus with hyperlipidemia (CMS/HCC) (CMS/HCC) BI MAMMOGRAM SCREENING TOMOSYNTHESIS BILATERAL Routine 06/22/2024 2:30 PM EST LIPID PANEL, STANDARD Routine 11/25/2023 1:39 PM EDT HM PAP/HPV Routine 11/18/2015 from Last 3 Months or Most Recently Relevant to Health Maintenance Results * (ABNORMAL) Albumin, Random Urine W/Creatinine (04/17/2025 12:02 PM EDT) Creatinine, Urine 257.32 mg/dL [facility] Microalbumin Urine 879.0 mg/L [facility] Microalbum Creatinine Ratio Ur 341.5(H) <30 ug/mg cr [facility] Comment:Albumin/Creatinine R atio Reference Ranges: Normal: < 30 ug/mg creatinine Microalbuminuria: 30 - 300 ug/mg creatinineClinical Albuminuria: > 300 ug/mg creatinine Urine (Urine, Random) 04/17/2025 12:02 PM EDT 04/17/2025 1:00 PM EDT [facility] LAB URINE ORDERABLES Final Resul t Performing Organization Address [facility] Co de Phone Number [facility] [address] [place] [phone] * (ABNORMAL) Creatinine, Serum (03/13/2025 1:26 PM EDT) Creatinine, Serum 1.46(H) 0.5 - 1.4 mg/dL [facility] Estimated Glomerular Filt Rate 39 [facility] Comment:Chronic Kidney Disea se: Estimated GFR < 60 mL/min/1.92i3Evxqwh Kidney Disease: Estimated GFR < 15 mL/min/1.73m2 03/13/2025 1:26 PM EDT 03/13/2025 1:26 PM EDT [facility] External Data Provider LAB BLOOD ORDERAB LES Final Result Performing Organization Address [facility]/ZIP Co de Phone Number [facility] [address] [place] [phone] * BUN (Blood Urea Nitrogen) (03/13/2025 1:26 PM EDT) Urea Nitrogen (BUN) 16 9 - 16 mg/dL [facility] 03/13/2025 1:26 PM EDT 03/13/2025 1:26 PM EDT Generic External Data Provider LAB BLOOD ORDERAB LES Final Result Performing Organization Address [facility] Co de Phone Number [facility] [address] [place] [phone] * (ABNORMAL) Electrolyte Panel (03/13/2025 1:26 PM EDT) Sodium 139 135 - 145 mmol/L [facility] Potassium 3.9 3.3 - 5.1 mmol/L [facility] Chloride 105 96 - 108 mmol/L [facility] Carbon Dioxide 28 22 - 29 mmol/L [facility] Anion Gap 10(L) 12 - 20 [facility] 03/13/2025 1:26 PM EDT 03/13/2025 1:26 PM EDT [facility] External Data Provider LAB BLOOD ORDERAB LES Final Result Performing Organization Address [facility] Phone Number [facility] [address] [place] [phone] * (ABNORMAL) Protein Creatinine Ratio, Urine (03/13/2025 1:21 PM EDT) Creatinine, Urine 333.07 mg/dL [facility] Protein, Total, Random Urine 360(H) <12 mg/dL [facility] Protein/Creati nine Ratio, Ur 1.08(H) <0.2 [facility] Comment:The spot urine prote in:creatinine ratio may increase to 0.3during normal . 03/13/2025 1:21 PM EDT 03/13/2025 2:18 PM EDT Generic External Data Provider LAB URINE ORDERAB LES Final Result [facility] [address] [place] [phone] * (ABNORMAL) POCT Hgb A1c (03/08/2025 1:51 PM EDT) Hemoglobin A1C 6.4(A) 4.0 - 5.7 % QC Media Lot # [id number] Lot# Expiration Date [id number] Blood 03/08/2025 1:51 PM EDT Chapo Dial ANP POINT OF CARE TEST ENTER/EDIT OR DERABLES Final Result * POCT Glucose (03/08/2025 1:49 PM EDT) Glucose Blood, POC 130 60 - 200 mg/dL QC Media Lot # [id number] Lot# Expiration Date [id number] Blood Capillary blood specimen / Unknown 03/08/2025 1:49 PM EDT Chapo Dial ANP POINT OF CARE TEST ENTER/EDIT OR DERABLES Final Result * BI Mammogram Screening Tomosynthesis Bilateral (06/22/2024 2:30 PM EST) Anatomical Region Laterality Modality Breast Bilateral Mammography 06/22/2024 2:30 PM EST Narrative 07/01/2024 10:13 AM EST [facility] [address] [place] [address] Mammography Report Signed Patient: Caitlyn Hercules V MR#: [id number] : 1980 Acct:[id number] Age/Sex: 44 / F ADM Date: 06/22/24 Loc: [facility] Attending Dr: Chapo Dial NP Ordering Physician: CHAPO DIAL NP Results: 2Benign Jerson ricardo Date of Service: 06/22/24 Follow Up: 1 Year From Orig inal Mammogram Procedure(s): MM tomosynthesis screening BI Accession Number(s): [id number] cc: CHAPO DIAL RAISE MINER EXAMINATION: MM SCREENING DIGITAL BREAST TOMOSYNTHESIS, BILATERAL [...] 1010 DD/ 1430 TD/TT: 06/22/24 1457 Forestry Foreman: Procedure Note Donotuseinterpreter, Image - 07/01/2024 [facility] [address] [place] [address] Mammography Report Signed Patient: Caitlyn Hercules R#: [id number] : 1980Acct:[id number] Age/Sex: 44 / FADM Date: 06/22/24 Loc: MAMMO Attending Dr: Chapo Dial RAISE MINER Ordering Physician: CHAPO DIAL NPResults: 2Bashley ricardo Date of Service: 06/22/24Follow Up: 1 Year From Orig inal Mammogram Procedure(s): MM tomosynthesis screening BI Accession Number(s): [id number] cc: CHAPO DIAL NP EXAMINATION: MM SCREENING [...] 1010 DD/ 1430 TD/TT: 06/22/24 1457 Forestry Foreman: us Chapo Dial ANP IMG BI PROCEDURES Final Result * (ABNORMAL) Lipid Panel, Standard (11/25/2023 1:39 PM EDT) Triglycerides 155(H) <150 mg/dL [facility] Comment:Desirable Triglyceri de: less than 150 mg/dLBorderline High Triglyceride 150-199 mg/dLHigh Triglyceride: 200-499 mg/dLVery High Triglyceride: greater than or equal to 5OO mg/dL Cholesterol 205(H) <200 mg/dL [facility] Comment:Desirable Cholestero l: less than 200 mg/dLBorderline High Cholesterol: 200-239 mg/dLHigh Cholesterol: greater than 239 mg/dL LDL Cholesterol Calculated 119(H) <100 mg/dL [facility] Comment:Desirable LDL: less than 100 mg/dLNear Optimal/Above Optimal LDL: 110- 129 mg/dLBorderline High LDL: 130-159 mg/dLHigh LDL: 160-189 mg/dLVery High LDL: greater than or equal to 190 mg/dL HDL Cholesterol 55 >40 mg/dL [facility] Comment:Desirable HDL: great er than 40 mg/dL Note: This HDL assay may give artificially low results in patients with liver disease. 11/25/2023 1:39 PM EDT 11/25/2023 1:39 PM EDT us Generic External Data Provider LAB BLOOD ORDERAB LES Final Result [facility] [address] [place] [phone] [phone] * Pap Smear (11/18/2015) Pap Negative for intraephithelial lesion or malignancy Negative for intraephithelial lesion or malignancy, Other HPV Undetected 11/18/2015 Historical Provider HEALTH MAINTENANCE Final Result from Last 3 Months or Most Recently Relevant to Health Maintenance Insurance [employer] PPO Care Teams Assembler Golf Wood Head Relationship Specialty Start Date End Date Chapo Dial ANP [address] [place] [phone] PCP - General Family Medicine 07/30/20
--- OUTSIDE RECORDS SUMMARY | 2025-04-17 15:17 | XMS_ITS | Encounter Summary ---
Author Organization [employer] Address [address] [place] [address] 7 [place] [address] Care Team Providers Care Acquisition Editor Name Role Phone Niki Allen Primary Care Provider [phone] Reason for Visit * Reason Comments Med Refill Encounter Details Date Type Department Care Team ([facility] st Contact Info) Description 03/19/2025 Refill [facility] [address] [place], [place] [phone] Niki Allen ANP [address] [place], [place] [phone] Insomnia, unspecified type Social History Tobacco Use [...] documented as of this encounter Care Teams Acquisition Editor Relationship Specialty Start Date End Date Niki Allen ANP [address] [place] [address] PCP - General Family Medicine 07/30/20 documented as of this encounter
[2025-04-17 16:17] LABS: Alanine Aminotransferase 12 U/L (0-31); Albumin Level 3.7 g/dL (3.5-5.0); Alkaline Phosphatase 68 U/L (39-117); Anion Gap 9 (12-20); Aspartate Amino Transferase 18 U/L (5-31); Blood Urea Nitrogen 14 mg/dL (9-16); Calcium 8.6 mg/dL (8.4-10.2); Carbon Dioxide 25 mmol/L (22-29); Chloride 108 mmol/L (96-108); Cholesterol 122 mg/dL (<200); Estimated Glomerular Filt Rate 47; HDL Cholesterol 43 mg/dL (>40); Potassium 3.8 mmol/L (3.3-5.1); Sodium 138 mmol/L (135-145); Total Protein 7.3 g/dL (6.5-8.0); Triglycerides 169 mg/dL (<150)
== END 2025-04-17 11:54 | disposition home or self-care (01) ==
LOC: HO.HHCL 11:53
PROVIDERS: PCP Nurse Practitioner Primary Care; Referring Provider Internal Medicine Nephrology; Visit Provider Nurse Practitioner Primary Care
DX: E11.69 Type 2 diabetes mellitus with other specified complication (principal); E78.5 Hyperlipidemia, unspecified
CPT/HCPCS: 36415; 80053; 80061; 82043; 82570

== ENCOUNTER 2025-04-19 10:45 | Outpatient (AMB) | payer OTHER, SELFPAY ==
--- NOTE | 2025-04-19 10:49 | HO.NEPHOV ---
Vital Signs 04/19/25 10:51 Height 5 ft 5 in Weight 248 lb 8 oz BMI 41.3 BP 140/80 H Blood Pressure Location Lt brachial Position Sitting Pulse 69 Pulse Source Pulse Oximeter Pulse Oximetry (%) 97 Oxygen Delivery Method Room Air Intake Visit Reasons: 1mon f/u w/labs-Conf Stained Glass Window Designer Required: No Accompanied by: Self / Same As Patient Allergies pork derived (porcine) (Pork derived (porcine)) Allergy (Intermediate, Verified 04/19/25 10:51) HIVES/STOMACH PAIN/THROAT CLOSES ibuprofen (From Motrin) Allergy (Mild, Verified 04/19/25 10:51) GI UPSET aspirin Allergy (Unknown, Verified 04/19/25 10:51) Unknown red dye Allergy (Verified 04/19/25 10:51) Unknown Motrin Allergy (Unknown, Uncoded 12/17/24 14:29) Unknown pork Allergy (Unknown, Uncoded 12/17/24 14:29) Unknown jardience Adverse Reaction (Uncoded 12/17/24 14:29) Hives HPI Comments Details: Caitlyn was seen in follow-up of her hypertension and proteinuria on a backdrop of IgA nephropathy. She had partial nephrectomy on the left side for a renal mass . She is a diabetic now . Had A1c close to 12 but is just on metformin now with A1c improved to under 7.0 . She also has been started on Mounhjaro. She is compliant with her medications. Blood pressure has been acceptable. She has no sore throat, hematuria, headache, visual disturbances, chest pain, shortness of breath, proximal nocturnal dyspnea or orthopnea. She is tolerating her current medication regimen. She is taking her fish oil. She has no orthostatic symptoms. She avoids nonsteroidal anti-inflammatory medications. [facility] Medical History IgA nephropathy Cancer of left kidney Migraine headache Asthma Hypertension Myocardial infarction IgA nephropathy Surgical History Morbid obesity H/O partial nephrectomy H/O right knee surgery H/O: hysterectomy Family History Mother IgA nephropathy Breast cancer Cancer of kidney CVA (cerebral vascular accident) Maternal Uncle Tongue cancer Social History Household Members: Family Housing: House Do you presently have visiting nurse or other home services: No Alcohol intake: never Comment: sleeping Cigarette Packs Per Day: 1 Cigarettes Per Day: 20.0 service: No Current occupational status: employed Review of Systems Const All systems reviewed & are unremarkable except as noted in HPI and below Physical Exam Vital Signs: Last Vital Signs Pulse 69 04/19/25 10:51 BP 140/80 H 04/19/25 10:51 Pulse Ox 97 04/19/25 10:51 Oxygen Delivery Method Room Air 04/19/25 10:51 BMI result Body Mass Index 41.3 Const General: comfortable and no acute distress Orientation/consciousness: patient oriented x3 HEENT Head: Yes normocephalic Mouth: Normal oral and palatal mucosa present Eyes EOM: EOMs intact bilaterally Neck Neck: Yes supple Resp Auscultation: clear to auscultation bilaterally Cardio Jugular venous distension: no JVD Rate: regular rate GI Palpation (GI): Soft to palpation Auscultation: normal bowel sounds General: Yes no CVA tenderness Back/Spine/Pelvis Back: no CVA tenderness Skin General skin exam: no rashes or lesions noted Neuro General: patient oriented x3 and moves all extremities Extrem General: Yes no pedal edema Results Reviewed Nephrology Results: Sodium, (135-145) 138 mmol/L 04/17/25 Potassium, (3.3-5.1) 3.8 mmol/L 04/17/25 Chloride, (96-108) 108 mmol/L 04/17/25 Carbon Dioxide, (22-29) 25 mmol/L 04/17/25 BUN, (9-16) 14 mg/dL 04/17/25 Creatinine, (0.5-1.4) 1.23 mg/dL 04/17/25 Calcium, (8.4-10.2) 8.6 mg/dL 04/17/25 Urine Creatinine 257.32 mg/dL 04/17/25 Protein/Creatinin Ratio, (<0.2) 1.08 H 03/13/25 Renal US 08/14/24 Assessment & Plan Assessment & Plan (1) Hypertension: Code(s): I10 - Essential (primary) hypertension Category: Medical Qualifiers: Hypertension type: primary hypertension Qualified Code(s): I10 - Essential (primary) hypertension (2) IgA nephropathy: Code(s): N02.8 - Recurrent and persistent hematuria with other morphologic changes Category: Medical (3) CKD (chronic kidney disease) stage 3, GFR 30-59 ml/min: Code(s): N18.30 - Chronic kidney disease, stage 3 unspecified Category: Medical Qualifiers: Chronic kidney disease stage 3 subtype: stage 3a (GFR 45-59) Qualified Code(s): N18.31 - Chronic kidney disease, stage 3a Tereza Brady has biopsy proven IgA nephropathy. She has H/O significant proteinuria. She is on Mounjaro. She is on DENNY-inhibitor. She needs to maintain good hydration, avoid nonsteroidal anti-inflammatory medications along with a low-sodium diet. She should be consistent in taking fish oil capsules. She needs MRI of her kidneys for follow up of her renal mass. She has seen Urology. She is tolerating statins. She was given Jardiance which she developed allergy. She can be given Farxiga instead. I have ordered follow-up blood work and urine studies & follow-up given Orders: Orders Electrolytes 3 Months I10 - Essential (primary) hypertension, N02.8 - Recurrent and persistent hematuria with other morphologic changes, N18.31 - Chronic kidney disease, stage 3a Blood Urea Nitrogen 3 Months I10 - Essential (primary) hypertension, N02.8 - Recurrent and persistent hematuria with other morphologic changes, N18.31 - Chronic kidney disease, stage 3a Protein Creatinine Ratio, Ur 3 Months I10 - Essential (primary) hypertension, N02.8 - Recurrent and persistent hematuria with other morphologic changes, N18.31 - Chronic kidney disease, stage 3a Creatinine 3 Months I10 - Essential (primary) hypertension, N02.8 - Recurrent and persistent hematuria with other morphologic changes, N18.31 - Chronic kidney disease, stage 3a Coding Level of Care Code Est Pt Level 4 (44739) Diagnoses Primary hypertension I10 Hypertension type: primary hypertension IgA nephropathy N02.8 Stage 3a chronic kidney disease N18.31 Chronic kidney disease stage 3 subtype: stage 3a (GFR 45-59)
[2025-04-19 10:51] VITALS: BP 140/80; PULSE 69; O2SAT 97; BMI 41.3
--- OUTSIDE RECORDS SUMMARY | 2025-04-19 12:16 | XMS_ITS | Clinical Summary ---
Author Organization [employer] Address [address] [place] [address] 7t [place] [address] Care Team Providers Care Linux Developer Name Role Phone Tiffany Chapo CORRALES Primary Care Provider [phone] Allergies Active Allergy Reactions Criticality Noted Date [...] 025 Active Blood Glucose Monitoring Suppl (FreeStyle Greenwood Lite) w/Device kitIndications:T ype 2 diabetes mellitus [...] days -continue fluticasone nasal spray -start loratadine -sun'aq on environmental triggers changes -advise may take [...] Plan: BG monitor to be purchased at [facility] (better cost d/t lack of [...] Encounters Date Type Department Care Team Description 04/17/2025 Results Follow-Up [facility] [address] [place] [address] Chapo Dial ANP POCT Glucose, POCT Hgb A1c, Lipid Panel, Standard, Additional followed-up results: 2 04/11/2025 11:15 AM EDT Office Visit [facility] [address] [place] [address] Chapo Dial ANP Type 2 diabetes mellitus with hyperlipidemia (HCC) (Primary Dx); ENRIKE (acute kidney injury); Encounter for immunization 04/11/2025 Travel 04/09/2025 Telephone [facility] [address] [place] [address] Chapo Dial ANP chart prep 04/08/2025 11:00 AM EDT Telemedicine [facility] [place] [place] [address] Kassidy Armando RN Pulmonary hypertension (CMS/HCC) ([facility]) 04/08/2025 Refill [facility] NYDIA [place] [phone] Chapo Dial ANP Insomnia, unspecified type 04/08/2025 Travel 04/03/2025 Refill [facility] [place] [address] Chapo Dial ANP Insomnia, unspecified type 03/19/2025 Refill [facility] [place] [address] Chapo Dial ANP Insomnia, unspecified type 03/18/2025 Results Follow-Up [facility] [place] [phone] Chapo Dial ANP Electrolyte Panel, BUN (Blood Urea Nitrogen), Creatinine, Serum, Protein Creatinine Ratio, Urine 03/15/2025 11:30 AM EDT Telemedicine [facility] [place] [address] Shabana Lyle RN Benign essential hypertension 03/15/2025 Travel 03/13/2025 Orders Only GENERIC EXTERNAL DATA DEPARTMENT Provider, Generic External Data 03/08/2025 1:45 PM EDT Office Visit [facility] [place] [address] Chapo Dial ANP Healthcare maintenance (Primary Dx); Type 2 diabetes mellitus with hyperlipidemia (CMS/HCC) ([facility]); Benign essential hypertension; Pulmonary hypertension (CMS/HCC); Mild persistent asthma without complication; Insomnia, unspecified type; Class 3 severe obesity with serious comorbidity and body mass index (BMI) of 40.0 to 44.9 in adult; Cigarette nicotine dependence without complication; IgA nephropathy; Asymptomatic hypertensive urgency 03/08/2025 Travel 03/08/2025 Refill [facility] [place] [address] Chapo Dial ANP Type 2 diabetes mellitus with hyperlipidemia (CMS/HCC) (CMS/HCC) 03/07/2025 Telephone [facility] [place] [phone] Chapo Dial ANP chart prep 03/01/2025 Patient Outreach [facility] [address] [place] [address] Chapo Dial ANP Pre-visit Planning (SDOH screening negative and Tobacco screening negative) 01/17/2025 Refill [facility] [address] [place] [address] Chapo Dial ANP Mixed hyperlipidemia from Last 3 Months Immunizations [...] is your housing situation today? I have bubbajr gonzalez 03/01/[address] you [...] 3-dose series) 1995 Hepatitis C Screening 1998 COVID-19 Vaccine ( season) 2025 11/04/2022, 11/28/2020, 10/31/2020 Mammogram 06/22/2025 06/22/2024, 08/2024, 06/22/2024, Additional history exists Diabetes: Hemoglobin A1C 09/05/2025 025, 06/01/2024, 02/13/2024, Additional history exists SDOH Screening 03/01/2026 03/01/2025 Alcohol/Substance Use Screening 03/08/2026 03/08/2025 Depression Screening 03/08/2026 03/08/2025, 03/08/20 25 Disability Screening 03/08/2026 03/08/2025 Family Planning (PISQ) 03/11/2026 03/11/2025 Tobacco Screening 04/11/2026 04/11/2025 Diabetes: Urine Protein Screening 04/17/2026 04/17/2025, 03/13/2025, 08/06/2024, Additional history exists Lipid Panel 04/17/2026 04/17/2025, 12/2023, 11/09/2022 Zoster Vaccines (1 of 2) 2030 DTaP/Tdap/Td [...] Procedure Name Priority Date/Time Associated Diagnosis Comments COMPREHENSIVE METABOLIC PANEL Routine 04/17/2025 12:02 PM EDT Type 2 diabetes mellitus with hyperlipidemia (HCC) ALBUMIN, RANDOM URINE W/CREATININE Routine 04/17/2025 12:02 PM EDT Type 2 diabetes mellitus with hyperlipidemia (HCC) LIPID PANEL, STANDARD Routine 04/17/2025 12:02 PM EDT Type 2 diabetes mellitus with hyperlipidemia (HCC) CREATININE, SERUM Routine 03/13/2025 1:2 6 PM EDT UREA NITROGEN (BUN) Routine 03/13/2025 1 :26 PM EDT ELECTROLYTE PANEL Routine 03/13/2025 1:2 6 PM EDT PROTEIN CREATININE RATIO, URINE Routine 03/13/2025 1:21 PM EDT POCT GLYCATED HEMOGLOBIN, TOTAL Routine 03/08/2025 1:51 PM EDT Type 2 diabetes mellitus with hyperlipidemia (CMS/HCC) ([facility]/HCC) POCT GLUCOSE Routine 03/08/2025 1:49 PM EDT Type 2 diabetes mellitus with hyperlipidemia (CMS/HCC) ([facility]/HCC) BI MAMMOGRAM SCREENING TOMOSYNTHESIS BILATERAL Routine 06/22/2024 2:30 PM EST HM PAP/HPV Routine 11/18/2015 from Last 3 Months or Most Recently Relevant to Health Maintenance Results * (ABNORMAL) Albumin, Random Urine W/Creatinine (04/17/2025 12:02 PM EDT) Creatinine, Urine 257.32 mg/dL [facility] Microalbumin Urine 879.0 mg/L H [facility] Microalbum Creatinine Ratio Ur 341.5(H) <30 ug/mg cr [facility] Comment:Albumin/Creatinine R atio Reference Ranges: Normal: < 30 ug/mg creatinine Microalbuminuria: 30 - 300 ug/mg creatinineClinical Albuminuria: > 300 ug/mg creatinine Urine (Urine, Random) 04/17/2025 12:02 PM EDT 04/17/2025 1:00 PM EDT Chapo Dial [facility] URINE ORDERABLES Final Resul t [facility] [address] [place] [phone] * (ABNORMAL) Lipid Panel, Standard (04/17/2025 12:02 PM EDT) Triglycerides 169(H) <150 mg/dL [facility] Comment:Desirable Triglyceri de: less than 150 mg/dLBorderline High Triglyceride 150-199 mg/dLHigh Triglyceride: 200-499 mg/dLVery High Triglyceride: greater than or equal to 5OO mg/dL Cholesterol 122 <200 mg/dL [facility] Comment:Desirable Cholestero l: less than 200 mg/dLBorderline High Cholesterol: 200-239 mg/dLHigh Cholesterol: greater than 239 mg/dL LDL Cholesterol Calculated 46 <100 mg/dL [facility] Comment:Desirable LDL: less than 100 mg/dLNear Optimal/Above Optimal LDL: 110- 129 mg/dLBorderline High LDL: 130-159 mg/dLHigh LDL: 160-189 mg/dLVery High LDL: greater than or equal to 190 mg/dL HDL Cholesterol 43 >40 mg/dL [facility] Comment:Desirable HDL: great er than 40 mg/dL Note: This HDL assay may give artificially low results in patients with liver disease. Blood Venous blood specimen / Unknown 04/17/2025 12:02 PM EDT 04/17/2025 3:57 PM EDT us Chapo Dial [facility] BLOOD ORDERABLES Final Resul t [facility] [address] [place] [phone] * (ABNORMAL) Comprehensive Metabolic Panel (04/17/2025 12:02 PM EDT) Sodium 138 135 - 145 mmol/L [facility] Potassium 3.8 3.3 - 5.1 mmol/L [facility] Chloride 108 96 - 108 mmol/L [facility] Carbon Dioxide 25 22 - 29 mmol/L [facility] Anion Gap 9(L) 12 - 20 [facility] Urea Nitrogen (BUN) 14 9 - 16 mg/dL [facility] Creatinine, Serum 1.23 0.5 - 1.4 mg/dL [facility] Estimated Glomerular Filt Rate 47 [facility] Comment:Chronic Kidney Disea se: Estimated GFR < 60 mL/min/1.89k5Spuyug Kidney Disease: Estimated GFR < 15 mL/min/1.73m2 Glucose 148(H) 60 - 115 mg/dL [facility] Calcium 8.6 8.4 - 10.2 mg/dL [facility] Bilirubin, Total 0.2 0.0 - 1.0 mg/dL [facility] Aspartate Amino Transferase 18 5 - 31 U/L [facility] Alanine Aminotransferase 12 0 - 31 U/L [facility] Total Protein 7.3 6.5 - 8.0 g/dL [facility] Albumin Level 3.7 3.5 - 5.0 g/dL [facility] Alkaline Phosphatase 68 39 - 117 U/L [facility] Blood Venous blood specimen / Unknown 04/17/2025 12:02 PM EDT 04/17/2025 3:57 PM EDT us Chapo Dial ANP LAB BLOOD ORDERABLES Final Resul t Performing Organization Address [facility] Co de Phone Number [facility] [address] [place] [phone] * (ABNORMAL) Creatinine, Serum (03/13/2025 1:26 PM EDT) Creatinine, Serum 1.46(H) 0.5 - 1.4 mg/dL [facility] Estimated Glomerular Filt Rate 39 [facility] Comment:Chronic Kidney Disea se: Estimated GFR < 60 mL/min/1.50p3Usrfac Kidney Disease: Estimated GFR < 15 mL/min/1.73m2 03/13/2025 1:26 PM EDT 03/13/2025 1:26 PM EDT us Generic External Data Provider LAB BLOOD ORDERAB LES Final Result Performing Organization Address City/[facility]/ZIP Co de Phone Number [facility] [address] [place] [phone] * BUN (Blood Urea Nitrogen) (03/13/2025 1:26 PM EDT) Urea Nitrogen (BUN) 16 9 - 16 mg/dL [facility] 03/13/2025 1:26 PM EDT 03/13/2025 1:26 PM EDT us Generic External Data Provider LAB BLOOD ORDERAB LES Final Result Performing Organization Address [facility] de Phone Number [facility] [address] [place] [phone] * (ABNORMAL) Electrolyte Panel (03/13/2025 1:26 PM EDT) Sodium 139 135 - 145 mmol/L [facility] Potassium 3.9 3.3 - 5.1 mmol/L [facility] Chloride 105 96 - 108 mmol/L [facility] Carbon Dioxide 28 22 - 29 mmol/L [facility] Anion Gap 10(L) 12 - 20 [facility] 03/13/2025 1:26 PM EDT 03/13/2025 1:26 PM EDT Generic External Data Provider LAB BLOOD ORDERAB LES Final Result Performing Organization Address [facility] Phone Number [facility] [address] [place] [phone] * (ABNORMAL) Protein Creatinine Ratio, Urine (03/13/2025 1:21 PM EDT) Creatinine, Urine 333.07 mg/dL [facility] Protein, Total, Random Urine 360(H) <12 mg/dL [facility] Protein/Creati nine Ratio, Ur 1.08(H) <0.2 [facility] Comment:The spot urine prote in:creatinine ratio may increase to 0.3during normal . 03/13/2025 1:21 PM EDT 03/13/2025 2:18 PM EDT Generic External Data Provider LAB URINE ORDERAB LES Final Result Performing Organization Address [facility] Co de Phone Number [facility] [address] [place] [phone] * (ABNORMAL) POCT Hgb A1c (03/08/2025 1:51 PM EDT) Hemoglobin A1C 6.4(A) 4.0 - 5.7 % QC Media Lot # [id number] Lot# Expiration Date Blood 03/08/2025 1:51 PM EDT us Chapo Dial ANP POINT OF CARE TEST ENTER/EDIT OR DERABLES Final Result * POCT Glucose (03/08/2025 1:49 PM EDT) Glucose Blood, POC 130 60 - 200 mg/dL QC Media Lot # [id number] Lot# Expiration Date 2,026 Blood Capillary blood specimen / Unknown 03/08/2025 1:49 PM EDT us Chapo Dial ANP POINT OF CARE TEST ENTER/EDIT OR DERABLES Final Result * BI Mammogram Screening Tomosynthesis Bilateral (06/22/2024 2:30 PM EST) Anatomical Region Laterality Modality Breast Bilateral Mammography 06/22/2024 2:30 PM EST Narrative 07/01/2024 10:13 AM EST Jesse [facility] [address] [place] [address] Mammography Report Signed Patient: Caitlyn Hercules V MR#: [id number] : 1980 Acct:[id number] Age/Sex: 44 / F ADM Date: 06/22/24 Loc: HO.MAMMO Attending Dr: Chapo Dial NP Ordering Physician: CHAPO DIAL NP Results: 2Benign Jerson ricardo Date of Service: 06/22/24 Follow Up: 1 Year From Orig inal Mammogram Procedure(s): MM tomosynthesis screening BI Accession Number(s): [id number] cc: CHAPO DIAL NP EXAMINATION: MM SCREENING [...] 07/01/24 1010 DD/ 1430 TD/TT: 06/22/24 1457 Jewel Sorter: Procedure Note Donotuseinterpreter, Image - 07/01/2024 [facility] [address] [place] [address] Mammography Report Signed Patient: Caitlyn Hercules VMR#: [id number] : 1980Acct:[id number] Age/Sex: 44 / FADM Date: 06/22/24 Loc: ANDREIAO Attending Dr: Chapo Dial NP Ordering Physician: CHAPO DIAL NPResults: 2Benign Jerson ricardo Date of Service: 06/22/24Follow Up: 1 Year From Orig inal Mammogram Procedure(s): MM tomosynthesis screening BI Accession Number(s): [id number] cc: CHAPO DIAL NP EXAMINATION: MM SCREENING [...] 07/01/24 1010 DD/ 1430 TD/TT: 06/22/24 1457 Jewel Sorter: Chapo SEARS BI PROCEDURES Final Result * Hm Pap Smear (11/18/2015) Pap Negative for intraephithelial lesion or malignancy Negative for intraephithelial lesion or malignancy, Other HPV Undetected 11/18/2015 Historical Provider HEALTH MAINTENANCE Final Result from Last 3 Months or Most Recently Relevant to Health Maintenance Insurance [employer] PPO Care Teams Linux Developer Relationship Specialty Start Date End Date Chapo Dial ANP [address] [place] [phone] PCP - General Family Medicine 07/30/20
--- OUTSIDE RECORDS SUMMARY | 2025-04-19 12:16 | XMS_ITS | Encounter Summary ---
Author Organization [employer] Address [address] [place] [address] 7 [place] [address] Care Team Providers Care Vascular Surgery Physician Name Role Phone Niki Allen Primary Care Provider [phone] Reason for Visit * Reason Comments Med Refill Encounter Details Date Type Department Care Team ([facility] st Contact Info) Description 04/03/2025 Refill [facility] [address] [place], [place] [phone] Niki Allen ANP [address] [place], [place] [phone] Insomnia, unspecified type Social History Tobacco Use [...] documented as of this encounter Care Teams Vascular Surgery Physician Relationship Specialty Start Date End Date Niki Allen ANP [address] [place] [address] PCP - General Family Medicine 07/30/20 documented as of this encounter
--- OUTSIDE RECORDS SUMMARY | 2025-04-19 12:16 | XMS_ITS | Encounter Summary ---
Author Organization [employer] Address [address] [place] [address] 7t [place] [address] Care Team Providers Care Manager Web Application Name Role Phone Niki Allen Primary Care Provider [phone] Encounter Details Date Type Department Care Team ([facility] st Contact Info) Description 04/17/2025 Results Follow-Up [facility] [address] [place], [place] [phone] Niki Allen, ANP [address] [place] [address] POCT Glucose, POCT Hgb A1c, Lipid Panel, Standard, Additional followed-up results: 2 Social History Tobacco Use Types Packs/Day Years [...] as of this encounter Care Teams Manager Web Application Relationship Specialty Start Date End Date Niki Allen ANP [address] [place] [phone] PCP - General Family Medicine 07/30/20 documented as of this encounter
--- OUTSIDE RECORDS SUMMARY | 2025-04-19 12:16 | XMS_ITS | Clinical Summary ---
Author Organization [address] [place] [address] Address [address] [place] [address] Phone Care Team Providers Care Rest Room Maid Name Role Phone AllenNiki EVELINA Primary Care Provider [phone] Allergies Active Allergy Reactions Criticality Noted Date [...] Type 2 diabetes mellitus wit h hyperlipidemia ([facility] V24, [facility] V28) 02/13/2024 Overview (07/19/2024): new dx 01/2024, metformin 500mg BID, lantus 10 units with plan to increase Cigarette nicotine dependence without complicati on 08/15/2023 Mixed hyperlipidemia 08/15/2023 Hypoxia 12/08/2022 Pulmonary hypertension ([facility] V24, [facility] V28 ) 12/08/2022 Overview (07/19/2024): Follows w/ [facility] Cards BP meds: Verapamil 180mg ER 2 [...] Nephrectomy Malignant tumor of kidney bonnie juarez ([facility] V24, [facility] V28) 01/28/2014 Overview (07/19/2024): Renal Carcinoma Encounters Date Type Department Care Team Description 04/05/2025 10:30 AM EDT Office Visit Bariatric Surgery - [address] [place] [address] Liv Joshi PA Class 3 severe obesity due to excess calories with serious comorbidity and body mass index (BMI) of 40.0 to 44.9 in adult ([facility] V24, [facility] V28) (Primary Dx); Type 2 diabetes mellitus with hyperlipidemia ([facility] V24, [facility] V28); Mixed hyperlipidemia; Primary hypertension from Last [...] 10:00 AM EST Nutrition Bariatric Surgery - [address] [phone] Zuly Lozano, PRANAY [address] [place] [address] 09/10/2025 11:00 AM EDT Office Visit Bariatric Surgery - [address] [address] Liv Cartagena PA [address] [place] [address] Health Maintenance Due Date Last [...] topic Insurance [employer] Care Teams Rest Room Maid Relationship Specialty Start Date End Date Niki Allen NP [address] [place] [phone] PCP - General 07/19/24
--- OUTSIDE RECORDS SUMMARY | 2025-04-19 12:16 | XMS_ITS | Encounter Summary ---
Author Organization [employer] Address [address] [place] [address] 7 [place] [address] Care Team Providers Care Ed Tech Name Role Phone Niki Allen Primary Care Provider [phone] Encounter Details Date Type Department Care Team ([facility] st Contact Info) Description 03/18/2025 Results Follow-Up [facility] [address] [place], [place] [phone] Niki Allen ANP [address] [place] [address] Electrolyte Panel, BUN (Blood Urea Nitrogen), Creatinine, [...] documented as of this encounter Care Teams Ed Tech Relationship Specialty Start Date End Date Niki Allen ANP [address] [place] [address] PCP - General Family Medicine 07/30/20 documented as of this encounter
--- OUTSIDE RECORDS SUMMARY | 2025-04-19 12:16 | XMS_ITS | Encounter Summary ---
Author Organization [employer] Address [address] [place] [address] 7 [place] [address] Care Team Providers Care Pricing Consultant Name Role Phone Niki Allen Primary Care Provider [phone] Reason for Visit * Reason Comments Med Refill Encounter Details Date Type Department Care Team ([facility] st Contact Info) Description 03/19/2025 Refill [facility] [address] [place], [place] [phone] Niki Allen ANP [address] [place], [place] [phone] Insomnia, unspecified type Social History Tobacco Use [...] documented as of this encounter Care Teams Pricing Consultant Relationship Specialty Start Date End Date Niki Allen ANP [address] [place] [address] PCP - General Family Medicine 07/30/20 documented as of this encounter
--- OUTSIDE RECORDS SUMMARY | 2025-04-19 12:16 | XMS_ITS | Encounter Summary ---
Author Organization [employer] Address [address] [place] [address] 7 [place] [address] Care Team Providers Care Jackscrew Man Name Role Phone Niki Allen Primary Care Provider [phone] Reason for Visit * Reason Onset Date Comments Call Back Request 04/18/2023 Encounter Details Date Type Department Care Team ([facility] st Contact Info) Description 04/18/2023 Telephone [facility] [address] [place], [place] [phone] Niki Allen ANP [address] [place] [address] Call Back Request Social History Tobacco Use [...] notes were fax over same day 04/17/2023, Meat Packer transferred over to HIM to verify if notes were received. Please contact Yamila at [phone] documented in this encounter Plan of Treatment Not on file documented as of this encounter Visit Diagnoses Not on filedocumented in this encounter Care Teams Jackscrew Man Relationship Specialty Start Date End Date Niki Allen ANP [address] [place] [phone] PCP - General Family Medicine 07/30/20 documented as of this encounter
--- OUTSIDE RECORDS SUMMARY | 2025-04-19 12:16 | XMS_ITS | Encounter Summary ---
Author Organization [employer] Address [address] [place] [address] 7 [place] [address] Care Team Providers Care Cloth Laminating Supervisor Name Role Phone Niki Allen Primary Care Provider [phone] Reason for Visit * Reason Comments Med Refill Encounter Details Date Type Department Care Team ([facility] st Contact Info) Description 08/16/2023 Refill [facility] [address] [place], [place] [phone] Niki Allen ANP [address] [place], [place] [phone] Mixed hyperlipidemia; Non-seasonal allergic rhinitis due to [...] trigger documented in this encounter Care Teams Cloth Laminating Supervisor Relationship Specialty Start Date End Date Niki Allen ANP [address] [place] [address] PCP - General Family Medicine 07/30/20 documented as of this encounter
--- OUTSIDE RECORDS SUMMARY | 2025-04-19 12:16 | XMS_ITS | Clinical Summary ---
Author Organization [facility] Address [address] [place] [address] Phone Care Team Providers Care Annealing Torch Operator Name Role Phone Tiffany Niki Perez NP Primary Care Provider [phone] Allergies Active Allergy Reactions Criticality Noted Date [...] Vaccine (#1) 2025 Insurance Medicaid [place] Medicaid [place] Care Teams Annealing Torch Operator Relationship Specialty Start Date End Date Niki Allen NP PCP - General Nurse Practitioner 01/13/22
--- OUTSIDE RECORDS SUMMARY | 2025-04-19 12:16 | XMS_ITS | Encounter Summary ---
Author Organization [employer] Address [address] [place] [address] 7 [place] [address] Care Team Providers Care Christian Science Practitioner Name Role Phone Allen Niki CORRALES Primary Care Provider [phone] Encounter Details Date Type Department Care Team ([facility] st Contact Info) Description 12/13/2024 Orders Only [facility] [address] [place], [place] [phone] Brianna Barry MD [address] [place] [address] Social History Tobacco Use Types Packs/Day Years [...] documented as of this encounter Care Teams Christian Science Practitioner Relationship Specialty Start Date End Date Niki Allen ANP [address] [place] [phone] PCP - General Family Medicine 07/30/20 documented as of this encounter
--- OUTSIDE RECORDS SUMMARY | 2025-04-19 12:16 | XMS_ITS | Encounter Summary ---
Author Organization [employer] Address [address] [place] [address] 7t [place] [address] Care Team Providers Care Laborer Pipeline Name Role Phone Tiffany Niki CORRALES Primary Care Provider [phone] Encounter Details Date Type Department Care Team (Late st Contact Info) Description 07/12/2022 Orders Only [facility] MEDICINE [address] [place] [address] Soraida Segundo LPN Social History Tobacco Use [...] (04/18/2023 7:37 PM EDT) Color Urine Yellow LABS Appearance Urine Cloudy LABS PH 6.5 5.0 - 9.0 LABS Glucose Urine UA Negative Negative mg/dL LABS Urine Blood Negative Negative LABS Specific Dodge - Urine 1.020 1.005 - 1.025 LABS Urine Protein 300 (3+)(A) Neg-Trace mg/dL LABS Urine Ketones Negative Negative mg/dL LABS Nitrite Urine Negative Negative [facility] LABS Leukocyte Esterase Urine Negative Negative LABS RBC Urine 0-2 0 - 2 /HPF LABS Urine WBC 0-5 0 - 5 /HPF LABS Urine Squamous Epithelial Cell 11-20 0 - 2 /HPF LABS Urine Bacteria 2+ None Seen [facility] LABS Hyaline Casts, Urine 3-5 0 - 2 /LPF LABS 04/18/2023 7:37 PM EDT 04/18/2023 7:40 PM EDT Narrative LABS - 04/18/2023 7:50 PM EDT [id number], Clean Catch us [facility] External Provider LAB URI NE ORDERABLES Final Result LABS [address] [place] [address] [phone] * Sed Rate by Modified Beverley (04/18/2023 2:12 PM EDT) Erythrocyte Sedimentation Rate 17 0 - 20 MM/HR LABS Comment:Patients with polycy themia and many hemoglobin abnormalitiesmay have depressed sed rates whereas patients with anemiamay have elevated sed rates. 04/18/2023 2:12 PM EDT 04/18/2023 5:23 PM EDT [facility] External Provider LAB BLO OD ORDERABLES Final Result Performing Organization Address [facility]/ZIP Co de Phone Number LABS [address] [place] [address] [phone] * TSH (04/18/2023 2:12 PM EDT) Thyroid Stimulating Hormone 0.65 0.32 - 4.0 uIU/mL LABS Comment:TSH 3rd Generation ( [facility]) 04/18/2023 2:12 PM EDT 04/18/2023 2:16 PM EDT [facility] External Data Provider LAB BLOOD ORDERAB LES Final Result Performing Organization Address [facility]/ZIP Co de Phone Number LABS [address] [place] [address] [phone] * (ABNORMAL) Basic Metabolic Panel (04/18/2023 2:12 PM EDT) Sodium 141 135 - 145 mmol/L LABS Potassium 3.9 3.3 - 5.1 mmol/L LABS Chloride 102 96 - 108 mmol/L LABS Carbon Dioxide 28 22 - 29 mmol/L LABS Anion Gap 15 12 - 20 LABS Urea Nitrogen (BUN) 12 9 - 16 mg/dL LABS Creatinine, Serum 1.23 0.5 - 1.4 mg/dL LABS Creatinine Clr Calc Pharmacy 77.2 LABS Comment:Provided height and weight: 165.1 cm,119.748 kg.eGFR (calculated from the MDRD study equation) and eCrCl(calculated from the Cockcroft-Gault equation) are based ondifferent parameters and may not yield comparable results.If eCrCl result is absurd, please check patient'sheight/weight. Estimated Glomerular Filt Rate 48 LABS Comment:NOTE: For -Am erican individuals, multiply the result by 1.210.Chronic Kidney Disease: Estimated GFR < 60 mL/min/1.46v4Moksub Kidney Disease: Estimated GFR < 15 mL/min/1.73m2 Glucose 144(H) 60 - 115 mg/dL LABS Calcium 9.3 8.4 - 10.2 mg/dL LABS 04/18/2023 2:12 PM EDT 04/18/2023 2:16 PM EDT [facility] External Data Provider LAB BLOOD ORDERAB LES Final Result Performing Organization Address [facility] Co de Phone Number LABS [address] [place] [phone] * (ABNORMAL) Hepatic Function Panel (04/18/2023 2:12 PM EDT) Bilirubin, Total 0.4 0.0 - 1.0 mg/dL LABS Bilirubin, Direct 0.1 0.0 - 0.5 mg/dL LABS Aspartate Amino Transferase 20 5 - 31 U/L LABS Alanine Aminotransferase 19 0 - 31 U/L LABS Total Protein 8.1(H) 6.5 - 8.0 g/dL LABS Albumin Level 3.9 3.5 - 5.0 g/dL LABS Alkaline Phosphatase 78 39 - 117 U/L LABS 04/18/2023 2:12 PM EDT 04/18/2023 2:16 PM EDT [facility] External Provider LAB BLO OD ORDERABLES Final Result Performing Organization Address [facility] Co de Phone Number LABS [address] [place] [phone] * (ABNORMAL) CBC auto differential (04/18/2023 2:12 PM EDT) White Blood Count 10.5 4.8 - 10.8 X10*3/uL LABS Red Blood Count 4.97 4.20 - 5.50 X10*6/uL LABS Hemoglobin 13.3 12.0 - 16.0 g/dl LABS Hematocrit 42.1 37.0 - 47.0 % LABS Mean Corpuscular Volume 84.7 80.0 - 98.0 fL LABS Mean Corpuscular Hemoglobin 26.8(L) 27.0 - 33.0 pg LABS Mean Corpuscular HGB Conc 31.6 31.0 - 35.0 g/dl LABS Red Cell Distribution Width 17.0(H) 11.0 - 16.0 % LABS Platelet Count 298 160 - 400 X10*3/uL LABS Mean Platelet Volume 10.9 9.4 - 12.3 [facility] LABS Neutrophils Percent Auto 61.6 45 - 73 % LABS Imm Gran Pct Auto 0.2 0.0 - 0.4 % LABS Lymphocytes Percent Auto 28.1 20 - 40 % LABS Monocytes Percent Auto 8.0 2 - 11 % LABS Eosinophils Percent Auto 1.2 0 - 4 % LABS Basophils Percent Auto 0.9 0 - 2 % LABS NRBC Pct Auto 0.0 0.0 - 0.2 /100WBC LABS Neutrophils Absolute Auto 6.4 2.0 - 8.3 x10*3/uL LABS Imm Gran Abs Auto 0.02 0.00 - 0.03 X10*3/uL LABS Lymphocytes Absolute Auto 2.9 1.2 - 4.9 X10*3/uL LABS Monocytes Absolute Auto 0.8 0.1 - 1.2 X10*3/uL LABS Eosinophils Absolute Auto 0.1 0.0 - 0.4 X10*3/uL LABS Basophils Absolute Auto 0.1 0.0 - 0.2 X10*3/uL LABS NRBC Abs Auto 0.000 0.0 - 0.012 X10*3/uL LABS 04/18/2023 2:12 PM EDT 04/18/2023 2:16 PM EDT [facility] External Provider LAB BLO OD ORDERABLES Final Result Performing Organization Address [facility] de Phone Number LABS [address] [place] [address] [phone] * (ABNORMAL) Protein Creatinine Ratio, Urine (09/09/2022 10:57 AM EDT) Creatinine, Urine 49.94 mg/dL LABS Protein, Total, Random Urine 240(H) <12 mg/dL LABS Protein/Creati nine Ratio, Ur 4.81(H) <0.2 LABS Comment:The spot urine prote in:creatinine ratio may increase to 0.3during normal . 09/09/2022 10:5 7 AM EDT 09/09/2022 12:07 PM EDT [facility] External Provider LAB URI NE ORDERABLES Final Result Performing Organization Address [facility] de Phone Number LABS [address] [place] [address] [phone] documented in this encounter Visit Diagnoses Not on filedocumented in this encounter Care Teams Laborer Pipeline Relationship Specialty Start Date End Date Niki [place] ANP [address] [place] [phone] PCP - General Family Medicine 07/30/20 documented as of this encounter
== END 2025-04-19 11:12 | disposition home or self-care (01) ==
LOC: HO.HKA 10:46
PROVIDERS: PCP Nurse Practitioner Primary Care; Visit Provider Internal Medicine Nephrology
DX: I10 Essential (primary) hypertension (principal); N02.8 Recurrent and persistent hematuria with other morphologic changes; N18.31 Chronic kidney disease, stage 3a
CPT/HCPCS: 99214

== ENCOUNTER 2025-04-29 11:19 | Outpatient (AMB) | payer OTHER, SELFPAY ==
[2025-04-29 11:31] VITALS: BMI 41.3
--- NOTE | 2025-04-29 11:31 | A.OFFVIS_ITS ---
Vital Signs 04/29/25 11:31 Height 5 ft 5 in Weight 248 lb BMI 41.3 Intake Visit Reasons: OV- Right Knee pain Intake Note: Caitlyn is a 44 year old female who presents today as a follow up from her right knee Euflexxa injections, last injection 12/17/24. Patient reports about 4-6 weeks of relief from the gel injections. Currently her pain has returned. She is taking Tylenol for the pain which is only providing mild relief. She would like to discuss alternative treatment options. Allergies pork derived (porcine) (Pork derived (porcine)) Allergy (Intermediate, Verified 04/29/25 11:35) HIVES/STOMACH PAIN/THROAT CLOSES ibuprofen (From Motrin) Allergy (Mild, Verified 04/29/25 11:35) GI UPSET aspirin Allergy (Unknown, Verified 04/29/25 11:35) Unknown red dye Allergy (Verified 04/29/25 11:35) Unknown Motrin Allergy (Unknown, Uncoded 04/29/25 11:35) Unknown pork Allergy (Unknown, Uncoded 04/29/25 11:35) Unknown jardience Adverse Reaction (Uncoded 04/29/25 11:35) Hives Medication List - Last Reconciled 04/29/25 by Peri Reno PA-C albuterol sulfate 90 mcg/actuation (ProAir HFA) 2 puffs inhalation QID PRN fluticasone propion-salmeterol 250-50 mcg/dose (Advair Diskus) 1 inh inhalation BID hydralazine 50 mg PO BID hydroxyzine HCl 50 mg PO BID lisinopril 20 mg (2 x 10 mg) PO DAILY loratadine (Claritin) 10 mg PO DAILY melatonin 5 mg PO BEDTIME PRN metformin 500 mg PO BID nicotine (polacrilex) 2 mg PO NEEDED nitroglycerin 0.4 mg sublingual Q5M PRN MDD 3 omega 3-fkh-gzn-fish oil 1,000 (120-180) mg (Fish Oil) 2 caps PO DAILY 90 days pantoprazole 40 mg PO DAILY rosuvastatin 5 mg PO DAILY sertraline 100 mg PO DAILY spironolactone 25 mg PO DAILY tirzepatide (Mounjaro) mg subcut trazodone 100 - 200 mg PO BEDTIME verapamil ER 180 mg PO BID HPI HPI OV- Right Knee pain: Details: 44-year-old female returns to the office today for a follow-up right knee pain. She just completed her gel injections over the summer and states there was some relief however she continues to have discomfort with daily activities including stairs and sitting for long periods of time and then standing. She has also had steroid injections in the past with Dr. Grover with little relief. [facility] Medical History IgA nephropathy Cancer of left kidney Migraine headache Asthma Hypertension Myocardial infarction IgA nephropathy Surgical History Morbid obesity H/O partial nephrectomy H/O right knee surgery H/O: hysterectomy Family History Mother IgA nephropathy Breast cancer Cancer of kidney CVA (cerebral vascular accident) Maternal Uncle Tongue cancer Social History Household Members: Family Housing: House Do you presently have visiting nurse or other home services: No Alcohol intake: never Comment: sleeping Cigarette Packs Per Day: 1 Cigarettes Per Day: 20.0 service: No Current occupational status: employed Review of Systems Const All systems reviewed & are unremarkable except as noted in HPI and below Physical Exam Vital Signs: BMI result Body Mass Index 41.3 Const General: cooperative and no acute distress Orientation/consciousness: patient oriented x3 Resp Effort & Inspection: normal respiratory effort and able to speak in complete sentences Cardio Peripheral pulses: Peripheral pulses 2+ throughout Neuro General: patient oriented x3 Extrem Other: Right knee mild effusion. Crepitus with ROM. ROM 0-90 degrees. Tenderness to palpation over the medial joint line. NVI. Office Procedures AMB Joint Injection/Aspiration Joint Injection/Aspiration Primary Site: right knee Prep: site was prepped using aseptic technique, ethochloride spray was applied and injection warnings given Injected: 40 mg of, with 3 mL of, 1% plain lidocaine, 0.25% bupivacaine, in the joint and decadron Approach Used: anterolateral Procedure: The patient tolerated the procedure well and there was some relief with the local anesthesia Coding 99117 - Glenohumeral/Tronchanteric Bursa/Intraarticular Procedure code (CPT) selection complete Assessment & Plan Assessment & Plan (1) Osteoarthritis of right knee: Code(s): M17.11 - Unilateral primary osteoarthritis, right knee Category: Medical Plan: We discussed options today which include repeat injections versus surgical intervention. The patient is 44 which is quite young for a total knee however she is exhausting all conservative management. I offered her steroid injection today to see if this would help since it has been several months since she has had a steroid injection. Right knee injected today which the patient tolerated well. She is agreeable to this. I would like her to see Dr. Grover in 3 months to follow up and discuss further options if this fails. The patient is content with this plan. Coding Level of Care Code Est Pt Level 3 (12831) Complex EM visit Add On G2211 Diagnoses Osteoarthritis of right knee M17.11 CPT Codes Coding - Joint 7: 08008 - Glenohumeral/Tronchanteric Bursa/Intraarticular ([id number])
--- OUTSIDE RECORDS SUMMARY | 2025-04-29 13:40 | XMS_ITS | Encounter Summary ---
Author Organization [employer] Address [address] [place] [address] 7 [place] [address] Care Team Providers Care Supervisor Metal Cans Name Role Phone Niki [place] Primary Care Provider [phone] Reason for Visit * Reason Comments Med Refill Encounter Details Date Type Department Care Team ([facility] st Contact Info) Description 03/19/2025 Refill [facility] MEDICINE [address] [place], [place] [phone] Niki [place] ANP [address] [place], [place] [phone] Insomnia, unspecified type Social History Tobacco Use [...] documented as of this encounter Care Teams Supervisor Metal Cans Relationship Specialty Start Date End Date Niki [place] ANP [address] [place] [address] PCP - General Family Medicine 07/30/20 documented as of this encounter
--- OUTSIDE RECORDS SUMMARY | 2025-04-29 13:40 | XMS_ITS | Encounter Summary ---
Author Organization [employer] Address [address] [place] [address] 7 [place] [address] Care Team Providers Care Monorail Hooker Name Role Phone [place] Niki CORRALES Primary Care Provider [phone] Encounter Details Date Type Department Care Team ([facility] st Contact Info) Description 12/13/2024 Orders Only [facility] [address] [place], [place] [phone] Brianna Barry MD [address] [place] [address] Social History Tobacco Use Types Packs/Day Years [...] with others, in a hotel, in a usp, living outside on the street, on a [...] documented as of this encounter Care Teams Monorail Hooker Relationship Specialty Start Date End Date Niki [place] ANP [address] [place] [phone] PCP - General Family Medicine 07/30/20 documented as of this encounter
--- OUTSIDE RECORDS SUMMARY | 2025-04-29 13:40 | XMS_ITS | Encounter Summary ---
Author Organization [employer] Address [address] [place] [address] 7 [place] [address] Care Team Providers Care Hoist Mechanic Name Role Phone Niki [place] Primary Care Provider [phone] Encounter Details Date Type Department Care Team ([facility] st Contact Info) Description 03/18/2025 Results Follow-Up [facility] MEDICINE [address] [place], [place] [phone] Niki [place] ANP [address] [place] [address] Electrolyte Panel, BUN (Blood Urea Nitrogen), Creatinine, [...] documented as of this encounter Care Teams Hoist Mechanic Relationship Specialty Start Date End Date Niki [place] ANP [address] [place] [address] PCP - General Family Medicine 07/30/20 documented as of this encounter
--- OUTSIDE RECORDS SUMMARY | 2025-04-29 13:40 | XMS_ITS | Encounter Summary ---
Author Organization [employer] Address [address] [place] [address] [address] [place] [address] Care Team Providers Care Marking Room Supervisor Name Role Phone Niki [place] Primary Care Provider [phone] Reason for Visit * Reason Comments Med Refill Encounter Details Date Type Department Care Team ([facility] st Contact Info) Description 04/03/2025 Refill [facility] MEDICINE [address] [place], [place] [phone] Niki [place] ANP [address] [place], [place] [phone] Insomnia, unspecified type Social History Tobacco Use [...] documented as of this encounter Care Teams Marking Room Supervisor Relationship Specialty Start Date End Date Niki [place] ANP [address] [place] [address] PCP - General Family Medicine 07/30/20 documented as of this encounter
--- OUTSIDE RECORDS SUMMARY | 2025-04-29 13:40 | XMS_ITS | Encounter Summary ---
Author Organization [employer] Address [address] [place] [address] [address] [place] [address] Care Team Providers Care Citizen Participation Specialist Name Role Phone Niki [place] Primary Care Provider [phone] Encounter Details Date Type Department Care Team ([facility] st Contact Info) Description 04/17/2025 Results Follow-Up [facility] MEDICINE [address] [place] [address] Niki [place], ANP [address] [place] [address] POCT Glucose, POCT Hgb A1c, Lipid Panel, [...] documented as of this encounter Care Teams Citizen Participation Specialist Relationship Specialty Start Date End Date Niki [place] ANP [address] [place] [phone] PCP - General Family Medicine 07/30/20 documented as of this encounter
--- OUTSIDE RECORDS SUMMARY | 2025-04-29 13:40 | XMS_ITS | Encounter Summary ---
Author Organization [employer] Address [address] [place] [address] 7t [place] [address] Care Team Providers Care Parking Station Attendant Name Role Phone Tiffany Niki CORRALES Primary Care Provider [phone] Encounter Details Date Type Department Care Team (Late st Contact Info) Description 07/12/2022 Orders Only [facility] MEDICINE [address] [place] [address] Soraida Segundo LPN Social History Tobacco Use [...] (04/18/2023 7:37 PM EDT) Color Urine Yellow [facility] Appearance Urine Cloudy [facility] PH 6.5 5.0 - 9.0 [facility] Glucose Urine UA Negative Negative mg/dL [facility] Urine Blood Negative Negative [facility] Specific [place] - Urine 1.020 1.005 - 1.025 [facility] Urine Protein 300 (3+)(A) Neg-Trace mg/dL [facility] Urine Ketones Negative Negative mg/dL [facility] Nitrite Urine Negative Negative [facility] Leukocyte Esterase Urine Negative Negative [facility] RBC Urine 0-2 0 - 2 /HPF [facility] Urine WBC 0-5 0 - 5 /HPF [facility] Urine Squamous Epithelial Cell 11-20 0 - 2 /HPF [facility] Urine Bacteria 2+ None Seen [facility] Hyaline Casts, Urine 3-5 0 - 2 /LPF [facility] 04/18/2023 7:37 PM EDT 04/18/2023 7:40 PM EDT Narrative [facility] - 04/18/2023 7:50 PM EDT [id number], Clean Catch us [facility] External Provider LAB URI NE ORDERABLES Final Result [facility] [address] [place] [address] [phone] * Sed Rate by Modified Beverley (04/18/2023 2:12 PM EDT) Erythrocyte Sedimentation Rate 17 0 - 20 MM/HR [facility] Comment:Patients with polycy themia and many hemoglobin abnormalitiesmay have depressed sed rates whereas patients with anemiamay have elevated sed rates. 04/18/2023 2:12 PM EDT 04/18/2023 5:23 PM EDT [facility] External Provider LAB BLO OD ORDERABLES Final Result Performing Organization Address [facility]/ZIP Co de Phone Number [facility] [address] [place] [address] [phone] * TSH (04/18/2023 2:12 PM EDT) Thyroid Stimulating Hormone 0.65 0.32 - 4.0 uIU/mL [facility] Comment:TSH 3rd Generation ( [facility]) 04/18/2023 2:12 PM EDT 04/18/2023 2:16 PM EDT [facility] External Data Provider LAB BLOOD ORDERAB LES Final Result Performing Organization Address [facility]/ZIP Co de Phone Number [facility] [address] [place] [address] [phone] * (ABNORMAL) Basic Metabolic Panel (04/18/2023 2:12 PM EDT) Sodium 141 135 - 145 mmol/L [facility] Potassium 3.9 3.3 - 5.1 mmol/L [facility] Chloride 102 96 - 108 mmol/L [facility] Carbon Dioxide 28 22 - 29 mmol/L [facility] Anion Gap 15 12 - 20 [facility] Urea Nitrogen (BUN) 12 9 - 16 mg/dL [facility] Creatinine, Serum 1.23 0.5 - 1.4 mg/dL [facility] Creatinine Clr Calc Pharmacy 77.2 [facility] Comment:Provided height and weight: 165.1 cm,119.748 kg.eGFR (calculated from the MDRD study equation) and eCrCl(calculated from the Cockcroft-Gault equation) are based ondifferent parameters and may not yield comparable results.If eCrCl result is absurd, please check patient'sheight/weight. Estimated Glomerular Filt Rate 48 [facility] Comment:NOTE: For -Am erican individuals, multiply the result by 1.210.Chronic Kidney Disease: Estimated GFR < 60 mL/min/1.25k3Xoldvn Kidney Disease: Estimated GFR < 15 mL/min/1.73m2 Glucose 144(H) 60 - 115 mg/dL [facility] Calcium 9.3 8.4 - 10.2 mg/dL [facility] 04/18/2023 2:12 PM EDT 04/18/2023 2:16 PM EDT [facility] External Data Provider LAB BLOOD ORDERAB LES Final Result Performing Organization Address [facility] Co de Phone Number [facility] [address] [place] [phone] * (ABNORMAL) Hepatic Function Panel (04/18/2023 2:12 PM EDT) Bilirubin, Total 0.4 0.0 - 1.0 mg/dL [facility] Bilirubin, Direct 0.1 0.0 - 0.5 mg/dL [facility] Aspartate Amino Transferase 20 5 - 31 U/L [facility] Alanine Aminotransferase 19 0 - 31 U/L [facility] Total Protein 8.1(H) 6.5 - 8.0 g/dL [facility] Albumin Level 3.9 3.5 - 5.0 g/dL [facility] Alkaline Phosphatase 78 39 - 117 U/L [facility] 04/18/2023 2:12 PM EDT 04/18/2023 2:16 PM EDT [facility] External Provider LAB BLO OD ORDERABLES Final Result Performing Organization Address [facility] Co de Phone Number [facility] [address] [place] [phone] * (ABNORMAL) CBC auto differential (04/18/2023 2:12 PM EDT) White Blood Count 10.5 4.8 - 10.8 X10*3/uL [facility] Red Blood Count 4.97 4.20 - 5.50 X10*6/uL [facility] Hemoglobin 13.3 12.0 - 16.0 g/dl [facility] Hematocrit 42.1 37.0 - 47.0 % [facility] Mean Corpuscular Volume 84.7 80.0 - 98.0 fL [facility] Mean Corpuscular Hemoglobin 26.8(L) 27.0 - 33.0 pg [facility] Mean Corpuscular HGB Conc 31.6 31.0 - 35.0 g/dl [facility] Red Cell Distribution Width 17.0(H) 11.0 - 16.0 % [facility] Platelet Count 298 160 - 400 X10*3/uL [facility] Mean Platelet Volume 10.9 9.4 - 12.3 [facility] Neutrophils Percent Auto 61.6 45 - 73 % [facility] Imm Gran Pct Auto 0.2 0.0 - 0.4 % [facility] Lymphocytes Percent Auto 28.1 20 - 40 % [facility] Monocytes Percent Auto 8.0 2 - 11 % [facility] Eosinophils Percent Auto 1.2 0 - 4 % [facility] Basophils Percent Auto 0.9 0 - 2 % [facility] NRBC Pct Auto 0.0 0.0 - 0.2 /100WBC [facility] Neutrophils Absolute Auto 6.4 2.0 - 8.3 x10*3/uL [facility] Imm Gran Abs Auto 0.02 0.00 - 0.03 X10*3/uL [facility] Lymphocytes Absolute Auto 2.9 1.2 - 4.9 X10*3/uL [facility] Monocytes Absolute Auto 0.8 0.1 - 1.2 X10*3/uL [facility] Eosinophils Absolute Auto 0.1 0.0 - 0.4 X10*3/uL [facility] Basophils Absolute Auto 0.1 0.0 - 0.2 X10*3/uL [facility] NRBC Abs Auto 0.000 0.0 - 0.012 X10*3/uL [facility] 04/18/2023 2:12 PM EDT 04/18/2023 2:16 PM EDT [facility] External Provider LAB BLO OD ORDERABLES Final Result Performing Organization Address [facility] de Phone Number [facility] [address] [place] [address] [phone] * (ABNORMAL) Protein Creatinine Ratio, Urine (09/09/2022 10:57 AM EDT) Creatinine, Urine 49.94 mg/dL [facility] Protein, Total, Random Urine 240(H) <12 mg/dL [facility] Protein/Creati nine Ratio, Ur 4.81(H) <0.2 [facility] Comment:The spot urine prote in:creatinine ratio may increase to 0.3during normal . 09/09/2022 10:5 7 AM EDT 09/09/2022 12:07 PM EDT [facility] External Provider LAB URI NE ORDERABLES Final Result Performing Organization Address [facility] de Phone Number [facility] [address] [place] [address] [phone] documented in this encounter Visit Diagnoses Not on filedocumented in this encounter Care Teams Parking Station Attendant Relationship Specialty Start Date End Date Niki Allen ANP [address] [place] [phone] PCP - General Family Medicine 07/30/20 documented as of this encounter
--- OUTSIDE RECORDS SUMMARY | 2025-04-29 13:40 | XMS_ITS | Encounter Summary ---
Author Organization [email or web address] Address [address] [place] [address] [address] [place] [address] Care Team Providers Care Landmen Name Role Phone Niki Allen Primary Care Provider [phone] Reason for Visit * Reason Onset Date Comments Call Back Request 04/18/2023 Encounter Details Date Type Department Care Team ([facility] st Contact Info) Description 04/18/2023 Telephone [facility] MEDICINE [address] [place], [place] [phone] Niki Allen ANP [address] [place] [address] Call Back Request Social History Tobacco Use [...] notes were fax over same day 04/17/2023, Assistant Manager Airside Operations transferred over to HIM to verify if notes were received. Please contact Yamila at [phone] documented in this encounter Plan of Treatment Not on file documented as of this encounter Visit Diagnoses Not on filedocumented in this encounter Care Teams Landmen Relationship Specialty Start Date End Date Niki Allen ANP [address] [place] [phone] PCP - General Family Medicine 07/30/20 documented as of this encounter
--- OUTSIDE RECORDS SUMMARY | 2025-04-29 13:40 | XMS_ITS | Clinical Summary ---
Author Organization [address] [place] [address] Address [address] [place] [address] Phone Care Team Providers Care Hand Candle Dipper Name Role Phone AllenNiki EVELINA Primary Care Provider [phone] Allergies Active Allergy Reactions Criticality Noted Date [...] Type 2 diabetes mellitus wit h hyperlipidemia ([facility] V24, [facility] V28) 02/13/2024 Overview (07/19/2024): new dx 01/2024, metformin 500mg BID, lantus 10 units with plan to increase Cigarette nicotine dependence without complicati on 08/15/2023 Mixed hyperlipidemia 08/15/2023 Hypoxia 12/08/2022 Pulmonary hypertension ([facility] V24, [facility] V28 ) 12/08/2022 Overview (07/19/2024): Follows w/ [facility] Cards BP meds: Verapamil 180mg ER 2 [...] Nephrectomy Malignant tumor of kidney bonnie juarez ([facility] V24, [facility] V28) 01/28/2014 Overview (07/19/2024): Renal Carcinoma Encounters Date Type Department Care Team Description 04/05/2025 10:30 AM EDT Office Visit Bariatric Surgery - [address] [place] [address] Liv Joshi PA Class 3 severe obesity due to excess calories with serious comorbidity and body mass index (BMI) of 40.0 to 44.9 in adult ([facility] V24, [facility] V28) (Primary Dx); Type 2 diabetes mellitus with hyperlipidemia ([facility] V24, [facility] V28); Mixed hyperlipidemia; Primary [...] 10:00 AM EST Nutrition Bariatric Surgery - [address] [address] Zuly Lozano, PRANAY [address] [place] [phone] 09/10/2025 11:00 AM EDT Office Visit Bariatric Surgery - [address] [address] Liv Cartagena PA [address] [place] [address] Health Maintenance Due Date Last [...] Insurance [employer] Care Teams Hand Candle Dipper Relationship Specialty Start Date End Date Niki Allen NP [address] [place] [phone] PCP - General 07/19/24
--- OUTSIDE RECORDS SUMMARY | 2025-04-29 13:40 | XMS_ITS | Clinical Summary ---
Author Organization [employer] Address [address] [place] [address] 7t [place] [address] Care Team Providers Care Road Contractor Name Role Phone Tiffany Chapo CORRALES Primary Care Provider Allergies Active Allergy Reactions Criticality Noted Date [...] 025 Active Blood Glucose Monitoring Suppl (FreeStyle [employer] Lite) w/Device kitIndications:T ype 2 diabetes mellitus [...] days -continue fluticasone nasal spray -start loratadine -[place] on environmental triggers changes -advise may take [...] Plan: BG monitor to be purchased at [facility] (better cost d/t lack of [...] Encounters Date Type Department Care Team Description 04/19/2025 Telephone [facility] MEDICINE [address] [place] [phone] Chapo Dial ANP June recall 04/17/2025 Results Follow-Up [facility] [address] [place] [address] Chapo Dial ANP POCT Glucose, POCT Hgb A1c, Lipid Panel, Standard, Additional followed-up results: 2 04/11/2025 11:15 AM EDT Office Visit [facility] [place] [address] Chapo Dial ANP Type 2 diabetes mellitus with hyperlipidemia (HCC) (Primary Dx); ENRIKE (acute kidney injury); Encounter for immunization 04/11/2025 Travel 04/09/2025 Telephone [facility] [place] [address] Chapo Dial ANP chart prep 04/08/2025 11:00 AM EDT Telemedicine [facility] [place] [address] Kassidy Armando RN Pulmonary hypertension (CMS/HCC) ([facility]) 04/08/2025 Refill [facility] [place] [address] Chapo Dial ANP Insomnia, unspecified type 04/08/2025 Travel 04/03/2025 Refill [facility] [place] [address] Chapo Dial ANP Insomnia, unspecified type 03/19/2025 Refill [facility] [place] [address] Chapo Dial ANP Insomnia, unspecified type 03/18/2025 Results Follow-Up [facility] [address] Chapo Dial ANP Electrolyte Panel, BUN (Blood Urea Nitrogen), Creatinine, Serum, Protein Creatinine Ratio, Urine 03/15/2025 11:30 AM EDT Telemedicine [place] [address] Shabana Lyle RN Benign essential hypertension 03/15/2025 Travel 03/13/2025 Orders Only GENERIC EXTERNAL DATA DEPARTMENT Provider, Generic External Data 03/08/2025 1:45 PM EDT Office Visit [facility] [place] [address] Chapo Dial ANP Healthcare maintenance (Primary Dx); Type 2 diabetes mellitus with hyperlipidemia (CMS/HCC) ([facility]); Benign essential hypertension; Pulmonary hypertension (CMS/HCC); Mild persistent asthma without complication; Insomnia, unspecified type; Class 3 severe obesity with serious comorbidity and body mass index (BMI) of 40.0 to 44.9 in adult; Cigarette nicotine dependence without complication; IgA nephropathy; Asymptomatic hypertensive urgency 03/08/2025 Travel 03/08/2025 Refill [facility] [place] [address] Chapo Dial ANP Type 2 diabetes mellitus with hyperlipidemia (CMS/HCC) (CMS/HCC) 03/07/2025 Telephone [facility] [address] [place] [address] Chapo Dial ANP chart prep 03/01/2025 Patient Outreach [facility] [address] [place] [address] Chapo Dial ANP Pre-visit Planning (SDOH screening negative and Tobacco screening negative) from Last 3 Months Immunizations Immunization Administration [...] your housing situation today? I have bubba carlos 03/01/[address] you li [...] Type 2 diabetes mellitus with hyperlipidemia (CMS/HCC) ([facility]/HCC) POCT GLUCOSE Routine 03/08/2025 1:49 PM EDT Type 2 diabetes mellitus with hyperlipidemia (CMS/HCC) ([facility]/HCC) BI MAMMOGRAM SCREENING TOMOSYNTHESIS BILATERAL Routine 06/22/2024 2:30 PM EST HM PAP/HPV Routine 11/18/2015 from Last 3 Months or Most Recently Relevant to Health Maintenance Results * (ABNORMAL) Albumin, Random Urine W/Creatinine (04/17/2025 12:02 PM EDT) Creatinine, Urine 257.32 mg/dL [facility] Microalbumin Urine 879.0 mg/L [facility] Microalbum Creatinine Ratio Ur 341.5(H) <30 ug/mg cr [facility] Comment:Albumin/Creatinine R atio Reference Ranges: Normal: < 30 ug/mg creatinine Microalbuminuria: 30 - 300 ug/mg creatinineClinical Albuminuria: > 300 ug/mg creatinine Urine (Urine, Random) 04/17/2025 12:02 PM EDT 04/17/2025 1:00 PM EDT Chapo CORRALES LAB URINE ORDERABLES Final Resul t [facility] [address] [place] [phone] * (ABNORMAL) Lipid Panel, Standard (04/17/2025 12:02 PM EDT) Triglycerides 169(H) <150 mg/dL [facility] Comment:Desirable Triglyceri de: less than 150 mg/dLBorderline High Triglyceride 150-199 mg/dLHigh Triglyceride: 200-499 mg/dLVery High Triglyceride: greater than or equal to 5OO mg/dL Cholesterol 122 <200 mg/dL [facility] Comment:Desirable Cholestero l: less than 200 mg/dLBorderline High Cholesterol: 200-239 mg/dLHigh Cholesterol: greater than 239 mg/dL LDL Cholesterol Calculated 46 <100 mg/dL [facility] Comment:Desirable LDL: less than 100 mg/dLNear Optimal/Above Optimal LDL: 110- 129 mg/dLBorderline High LDL: 130-159 mg/dLHigh LDL: 160-189 mg/dLVery High LDL: greater than or equal to 190 mg/dL HDL Cholesterol 43 >40 mg/dL [facility] Comment:Desirable HDL: great er than 40 mg/dL Note: This HDL assay may give artificially low results in patients with liver disease. Blood Venous blood specimen / Unknown 04/17/2025 12:02 PM EDT 04/17/2025 3:57 PM EDT us Chapo Dial [facility] LAB BLOOD ORDERABLES Final Resul t [facility] [address] [place] [phone] * (ABNORMAL) Comprehensive Metabolic Panel (04/17/2025 12:02 PM EDT) Sodium 138 135 - 145 mmol/L [facility] Potassium 3.8 3.3 - 5.1 mmol/L [facility] Chloride 108 96 - 108 mmol/L [facility] Carbon Dioxide 25 22 - 29 mmol/L [facility] Anion Gap 9(L) 12 - 20 [facility] Urea Nitrogen (BUN) 14 9 - 16 mg/dL [facility] Creatinine, Serum 1.23 0.5 - 1.4 mg/dL [facility] Estimated Glomerular Filt Rate 47 [facility] Comment:Chronic Kidney Disea se: Estimated GFR < 60 mL/min/1.82k7Davgbs Kidney Disease: Estimated GFR < 15 mL/min/1.73m2 Glucose 148(H) 60 - 115 mg/dL [facility] Calcium 8.6 8.4 - 10.2 mg/dL [facility] Bilirubin, Total 0.2 0.0 - 1.0 mg/dL [facility] Aspartate Amino Transferase 18 5 - 31 U/L [facility] Alanine Aminotransferase 12 0 - 31 U/L [facility] Total Protein 7.3 6.5 - 8.0 g/dL [facility] Albumin Level 3.7 3.5 - 5.0 g/dL [facility] Alkaline Phosphatase 68 39 - 117 U/L [facility] Blood Venous blood specimen / Unknown 04/17/2025 12:02 PM EDT 04/17/2025 3:57 PM EDT us Chapo [facility] LAB BLOOD ORDERABLES Final Resul t Performing Organization Address [facility] Co de Phone Number [facility] [address] [place] [phone] * (ABNORMAL) Creatinine, Serum (03/13/2025 1:26 PM EDT) Creatinine, Serum 1.46(H) 0.5 - 1.4 mg/dL [facility] Estimated Glomerular Filt Rate 39 [facility] Comment:Chronic Kidney Disea se: Estimated GFR < 60 mL/min/1.03k5Itdjai Kidney Disease: Estimated GFR < 15 mL/min/1.73m2 03/13/2025 1:26 PM EDT 03/13/2025 1:26 PM EDT us Generic External Data Provider LAB BLOOD ORDERAB LES Final Result Performing Organization Address City/[facility]/ZIP Co de Phone Number [facility] [address] [place] [phone] * BUN (Blood Urea Nitrogen) (03/13/2025 1:26 PM EDT) Urea Nitrogen (BUN) 16 9 - 16 mg/dL [facility] 03/13/2025 1:26 PM EDT 03/13/2025 1:26 PM EDT us Generic External Data Provider LAB BLOOD ORDERAB LES Final Result Performing Organization Address [facility] de Phone Number [facility] [address] [place] [phone] * (ABNORMAL) Electrolyte Panel (03/13/2025 1:26 PM EDT) Sodium 139 135 - 145 mmol/L [facility] Potassium 3.9 3.3 - 5.1 mmol/L [facility] Chloride 105 96 - 108 mmol/L [facility] Carbon Dioxide 28 22 - 29 mmol/L [facility] Anion Gap 10(L) 12 - 20 [facility] 03/13/2025 1:26 PM EDT 03/13/2025 1:26 PM EDT Generic External Data Provider LAB BLOOD ORDERAB LES Final Result Performing Organization Address [facility] Phone Number [facility] [address] [place] [phone] * (ABNORMAL) Protein Creatinine Ratio, Urine (03/13/2025 1:21 PM EDT) Creatinine, Urine 333.07 mg/dL [facility] Protein, Total, Random Urine 360(H) <12 mg/dL [facility] Protein/Creati nine Ratio, Ur 1.08(H) <0.2 [facility] Comment:The spot urine prote in:creatinine ratio may increase to 0.3during normal . 03/13/2025 1:21 PM EDT 03/13/2025 2:18 PM EDT Generic External Data Provider LAB URINE ORDERAB LES Final Result Performing Organization Address [facility] Co de Phone Number [facility] [address] [place] [phone] * (ABNORMAL) POCT Hgb A1c (03/08/2025 [...] EST Narrative 07/01/2024 10:13 AM EST [facility] [address] [place] [address] Mammography Report Signed Patient: Caitlyn Hercules V MR#: [id number] : 1980 Acct:[id number] Age/Sex: 44 / F ADM Date: 06/22/24 Loc: HO.MAMMO Attending Dr: Chapo Dial NP Ordering Physician: CHAPO DIAL NP Results: 2Benign Jerson ricardo Date of Service: 06/22/24 Follow Up: 1 Year From Orig inal Mammogram Procedure(s): MM tomosynthesis screening BI Accession Number(s): [id number] cc: CHAPO DIAL NP EXAMINATION: MM SCREENING [...] 07/01/24 1010 DD/ 1430 TD/TT: 06/22/24 1457 Large Animal Husbandry Technician: Procedure Note Donotuseinterpreter, Image - 07/01/2024 [facility] [address] [place] [address] Mammography Report Signed Patient: Caitlyn Hercules VMR#: [id number] : 1980Acct:[id number] Age/Sex: 44 / FADM Date: 06/22/24 Loc: HOKareenMAMMO Attending Dr: Chapo Dial NP Ordering Physician: CHAPO DIAL NPResults: 2Benign Jerson ricardo Date of Service: 06/22/24Follow Up: 1 Year From Orig inal Mammogram Procedure(s): MM tomosynthesis screening BI Accession Number(s): [id number] cc: CHAPO DIAL NP EXAMINATION: MM SCREENING [...] 07/01/24 1010 DD/ 1430 TD/TT: 06/22/24 1457 Large Animal Husbandry Technician: Chapo CORRALES IMAron BI PROCEDURES Final Result * Hm Pap Smear (11/18/2015) Pap Negative for intraephithelial lesion or malignancy Negative for intraephithelial lesion or malignancy, Other HPV Undetected 11/18/2015 Historical Provider HEALTH MAINTENANCE Final Result from Last 3 Months or Most Recently Relevant to Health Maintenance Insurance [employer] PPO Care Teams Road Contractor Relationship Specialty Start Date End Date Chapo Dial ANP [address] [place] [phone] PCP - General Family Medicine 07/30/20
--- OUTSIDE RECORDS SUMMARY | 2025-04-29 13:40 | XMS_ITS | Clinical Summary ---
Author Organization [facility] Address [address] [place] [address] Phone Care Team Providers Care Professor Of Fine Art Name Role Phone Tiffany Niki Perez NP Primary Care Provider [phone] Allergies Active Allergy Reactions Criticality Noted Date [...] Vaccine (#1) 2025 Insurance Medicaid [place] Medicaid [place] Care Teams Professor Of Fine Art Relationship Specialty Start Date End Date Niki Allen NP PCP - General Nurse Practitioner 01/13/22
--- OUTSIDE RECORDS SUMMARY | 2025-04-29 13:41 | XMS_ITS | Encounter Summary ---
Author Organization [employer] Address [address] [facility] 7 [place] [address] Care Team Providers Care Commercial Or Institutional Cleaner Name Role Phone Niki Allen Primary Care Provider [phone] Reason for Visit * Reason Comments Med Refill Encounter Details Date Type Department Care Team ([facility] st Contact Info) Description 08/16/2023 Refill [facility] [address] [place], [place] [phone] Niki Allen ANP [address] [place], [place] [phone] Mixed hyperlipidemia; Non-seasonal allergic rhinitis due to [...] trigger documented in this encounter Care Teams Commercial Or Institutional Cleaner Relationship Specialty Start Date End Date Niki Allen ANP [address] [place] [phone] PCP - General Family Medicine 07/30/20 documented as of this encounter
== END 2025-04-29 12:22 | disposition home or self-care (01) ==
LOC: HO.HOS 11:19
PROVIDERS: PCP Nurse Practitioner Primary Care; Visit Provider Physician Assistant
DX: M17.11 Unilateral primary osteoarthritis, right knee (principal)
CPT/HCPCS: 20610; 99213

== ENCOUNTER → 2025-04-29 11:19 | Outpatient (BNVA) | payer OTHER, SELFPAY | PROVIDERS: PCP Nurse Practitioner Primary Care; Visit Provider Physician Assistant | DX: M17.11 Unilateral primary osteoarthritis, right knee (principal) | CPT/HCPCS: 20610; J0665; J1100; J2003 ==

== ENCOUNTER 2025-05-24 12:32 | Outpatient (AMB) | payer OTHER, SELFPAY ==
--- NOTE | 2025-05-24 12:56 | MHC.OFFVIS ---
Vital Signs 05/24/25 12:57 Height 5 ft 5 in Weight 242 lb 8.136 oz BMI 40.4 BP 110/72 Blood Pressure Location Lt brachial Position Sitting Pulse 66 Intake Visit Reasons: 6 months Intake Note: 6 month follow-up feeling good Director Trial Required: No Allergies pork derived (porcine) (Pork derived (porcine)) Allergy (Intermediate, Verified 04/29/25 11:35) HIVES/STOMACH PAIN/THROAT CLOSES ibuprofen (From Motrin) Allergy (Mild, Verified 04/29/25 11:35) GI UPSET aspirin Allergy (Unknown, Verified 04/29/25 11:35) Unknown red dye Allergy (Verified 04/29/25 11:35) Unknown Motrin Allergy (Unknown, Uncoded 04/29/25 11:35) Unknown pork Allergy (Unknown, Uncoded 04/29/25 11:35) Unknown jardience Adverse Reaction (Uncoded 04/29/25 11:35) Hives Medication List - Last Reconciled 05/24/25 by OLGA Taylor albuterol sulfate 90 mcg/actuation (ProAir HFA) 2 puffs inhalation QID PRN fluticasone propion-salmeterol 250-50 mcg/dose (Advair Diskus) 1 inh inhalation BID hydralazine 50 mg PO BID hydroxyzine HCl 50 mg PO BID lisinopril 20 mg (2 x 10 mg) PO DAILY loratadine (Claritin) 10 mg PO DAILY melatonin 5 mg PO BEDTIME PRN nicotine (polacrilex) 2 mg PO NEEDED omega 8-sso-ssx-fish oil 1,000 (120-180) mg (Fish Oil) 2 caps PO DAILY 90 days pantoprazole 40 mg PO DAILY rosuvastatin 5 mg PO DAILY spironolactone 25 mg PO DAILY tirzepatide (Mounjaro) mg subcut trazodone 100 - 200 mg PO BEDTIME verapamil ER 180 mg PO BID HPI HPI 6 months: Details: Caitlyn is a 44-year-old female with past medical history of morbid obesity, hypertension, Prior smoking and current vaping, nocturnal hypoxia with home O2 use during sleep, prior reports of chest discomfort with CTA of the coronary arteries showing no high-grade stenosis. She now presents for follow-up. Today she reports that since her last visit 6 months ago she has been working on weight loss. She has adjusted her diet and is using the GLP 1 injections. She is down 40 lb And is feeling better overall. She has not been getting the stabbing pains in her chest as much. She recalls taking nitroglycerin on 1 occasion since her last visit. She is not having chest discomfort brought on by physical activity. She still has some shortness of breath with exertion but feels this is improving. No Heart palpitations, lightheadedness, presyncope, syncope, falls. No PND, orthopnea or edema. 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 She is taking her meds as directed. working on increasing her physical activity. Daughter and grandchild are present [facility] Medical History IgA nephropathy Cancer of left kidney Migraine headache Asthma Hypertension Myocardial infarction IgA nephropathy Surgical History Morbid obesity H/O partial nephrectomy H/O right knee surgery H/O: hysterectomy Family History Mother IgA nephropathy Breast cancer Cancer of kidney CVA (cerebral vascular accident) Maternal Uncle Tongue cancer Social History Household Members: Family Housing: House Do you presently have visiting nurse or other home services: No Alcohol intake: never Comment: sleeping Cigarette Packs Per Day: 1 Cigarettes Per Day: 20.0 service: No Current occupational status: employed Review of Systems Const All systems reviewed & are unremarkable except as noted in HPI and below Denies chills, Denies fatigue, Denies fever(s), Denies frequent falls, Denies weakness, Denies weight gain and Reports weight loss ENT Denies dizziness Card Denies chest pain, Denies leg edema, Denies lightheadedness, Denies palpitations, Denies dyspnea, Denies dyspnea on exertion, Denies orthopnea and Denies other (loss of consciousness) Resp Denies cough, Denies dyspnea and Denies dyspnea on exertion GI Denies hematochezia and Denies change in stool character Musc Denies abnormal gait, Denies muscle weakness, Denies numbness, Denies radiating pain into limb and Denies tingling Neuro Denies abnormal gait, Denies dizziness, Denies frequent falls, Denies numbness, Denies tingling and Denies weakness Endo Denies fatigue and Denies palpitations Physical Exam Vital Signs: Last Vital Signs Pulse 66 05/24/25 12:57 BP 110/72 05/24/25 12:57 BMI result Body Mass Index 40.4 Const General: cooperative, healthy appearing, comfortable and no acute distress Orientation/consciousness: patient oriented x3 Neck Neck: Yes normal visual inspection Resp Effort & Inspection: normal respiratory effort Auscultation: clear to auscultation bilaterally, no crackles, no rales, no rhonchi and no wheezes Cardio Jugular venous distension: no JVD Rate: regular rate Rhythm: regular rhythm Heart sounds: S1 normal heart sound present, S2 normal heart sound present, no murmurs and no rubs Neuro General: patient oriented x3 Extrem General: Yes normal to inspection Psych Appearance: grossly normal Mental Status: mental status grossly normal Speech and movement: Normal speech and movement present Assessment & Plan Assessment & Plan (1) Chest discomfort: Code(s): R07.89 - Other chest pain Category: Medical Plan: Reports of random sharp nonexertional left-sided chest discomfort, which relieves when she takes nitroglycerin. Cardiac risk factors of hypertension, smoking, morbid obesity, sedentary, newer diabetes. Last echo done 02/23/2023 shows EF 60-65%, moderate left ventricular hypertrophy and grade 2 diastolic dysfunction, mild AR, [id number] elevated RV systolic pressure. Nuclear stress test done on 06/17/2023 showing normal myocardial perfusion imaging. A CTA of the coronary arteries done on 11/07/2024 shows no definite high-grade stenosis, exam moderately degraded by body habitus and cardiac motion artifact. No evidence that her discomfort is cardiac. Recommend that she not use nitroglycerin for her discomfort as there is no indication that it is cardiac. Continue with risk factor modification. Continue hydralazine, lisinopril, verapamil, Aldactone for good blood pressure control. Continue rosuvastatin for cholesterol control. Emergency care if ever needed for symptoms. Consider noncardiac causes for her discomfort. Cardiology follow-up 6 months, sooner if needed (2) Right ventricular dysfunction: Code(s): I51.9 - Heart disease, unspecified Category: Medical Plan: History of morbid obesity and nocturnal hypoxemia leading to increased filling pressures in her heart. Also has history of moderate persistent asthma and Prior smoking, replaced by vaping. Follows with pulmonology Dr. Thomas. Uses O2 1 L during sleep. Echocardiogram done 02/23/2023 shows EF 60-65%, moderate LVH, grade 2 diastolic dysfunction, moderate dilated left atrium, mild aortic regurgitation, RVSP 45 mmHg. Echo from 2020 showed RVSP 55 mmHg. She has no signs of heart failure on examination. She is working on weight loss and overall feeling better. Will update echo prior to next visit. (3) Diastolic dysfunction: Code(s): I51.89 - Other ill-defined heart diseases Category: Medical Plan: Grade 2 diastolic dysfunction on last echo (4) LVH (left ventricular hypertrophy): Code(s): I51.7 - Cardiomegaly Category: Medical Plan: Moderate LVH on last echo. This is up from mild LVH on echo in 2020. Will continue to work on good blood pressure control (5) Morbid obesity: Code(s): E66.01 - Morbid (severe) obesity due to excess calories Category: Surgical Plan: Benefit of weight loss reviewed. She is working on diet control And on GLP 1. Weight down 40 lb. (6) Hypertension: Code(s): I10 - Essential (primary) hypertension Category: Medical Qualifiers: Hypertension type: primary hypertension Qualified Code(s): I10 - Essential (primary) hypertension Plan: Blood pressure goal less than 130/80. Blood pressure at goal today. No med changes made. Plan I commended the patient on her excellent progress, including a 40-pound weight loss and significant improvement in her cardiac symptoms. We discussed that while her prior cardiac workup was reassuring, an updated echocardiogram would be obtained to re-evaluate her heart function. I advised her to monitor for hypotension as she continues to lose weight, as her blood pressure medication doses may need to be reduced. We reviewed her severe knee pain and upcoming surgical consultation. I encouraged her to continue working towards quitting vaping. The plan is for her to follow up in six months, but to contact the office sooner for any new or worsening heart-related concerns. Orders: Orders CA echo transthoracic complete Today I10 - Essential (primary) hypertension, I51.7 - Cardiomegaly, I51.89 - Other ill-defined heart diseases Patient Instructions: - Continue with your healthy diet, exercise, and lifestyle changes that have helped you lose weight. - Take all of your medications as prescribed. - Keep checking your blood pressure. If the top number is regularly below 100, please call our office, as we may need to adjust your medicine. - Continue your efforts to cut down on and eventually quit vaping. - We will arrange for you to have another heart ultrasound (echocardiogram) before your next visit. - Please schedule a follow-up appointment with our office in six months. - Contact us sooner if you have any new, worsening, or concerning heart symptoms. Patient was informed and verbally consented to the use of an ambient scribe for clinic note documentation during this visit. Visit time spent on chart review, interview, assessment, orders, documentation. Coding Level of Care Code Complex visit Add On G2211 Diagnoses Chest discomfort R07.89 Right ventricular dysfunction I51.9 Diastolic dysfunction I51.89 LVH (left ventricular hypertrophy) I51.7 Morbid obesity E66.01 Primary hypertension I10 Hypertension type: primary hypertension Time Spent (min) 28
[2025-05-24 12:57] VITALS: BP 110/72; PULSE 66; BMI 40.4
== END 2025-05-24 13:23 | disposition home or self-care (01) ==
LOC: HO.HCS 12:33
PROVIDERS: PCP Nurse Practitioner Primary Care; Visit Provider Nurse Practitioner Family
DX: R07.89 Other chest pain (principal); I51.9 Heart disease, unspecified; I51.89 Other ill-defined heart diseases; I51.7 Cardiomegaly; E66.01 Morbid (severe) obesity due to excess calories; I10 Essential (primary) hypertension
CPT/HCPCS: 99214; G2211

== ENCOUNTER 2025-06-05 15:10 | Outpatient (REF) | payer OTHER, SELFPAY ==
--- NOTE | ~2025-06-05 | CT_ITS ---
EXAMINATION: CT ABDOMEN AND PELVIS WITHOUT AND WITH CONTRAST CLINICAL INFORMATION: Z85.528 - Personal history of other malignant neoplasm of kidney COMPARISON: 07/29/2020 CT and August 15, 2023 MRI TECHNIQUE: Multidetector volumetric imaging was performed of the abdomen and pelvis before and after the IV administration of 85 mL of Omnipaque 300 intravenous contrast. Sagittal and coronal reformatted images were obtained on the technologist's workstation. This CT examination was performed using dose optimization techniques as appropriate, variously including the following: *Automated exposure control *Adjustment of mA and/or kV according to patient size (this includes techniques or standardized protocols for targeted exams where dose is matched to indication/reason for exam; i.e. extremities or head) *Use of iterative reconstruction technique FINDINGS: LUNG BASES: The visualized lung bases are unremarkable. LIVER, GALLBLADDER, AND BILIARY TREE: The liver is normal in size, shape, and attenuation. No focal hepatic lesion or biliary ductal dilatation is present. The gallbladder is unremarkable with no evidence of radiopaque gallstones, gallbladder wall thickening, or obvious pericholecystic inflammatory changes. PANCREAS: Unremarkable SPLEEN: Unremarkable ADRENAL GLANDS: Unremarkable KIDNEYS AND URETERS: Again seen is an exophytic lesion extending laterally from the lower pole left kidney measuring 3.3 x 2.4 x 2.4 cm, previously measuring 3.7 x 2.4 x 2.4 cm (CC by AP by transverse). Without contrast it measured 20 Hounsfield units, after contrast measured 24 Hounsfield units with standard deviation of 20 Hounsfield units consistent with no significant change before and after contrast. There is a new lesion involving the posterior superior pole the right kidney that is 13 mm diameter. It measured 22-23 Hounsfield units before contrast and 25-27 Hounsfield units after. No other new lesions are identified. There is no hydronephrosis or nephrolithiasis. BLADDER: Unremarkable GASTROINTESTINAL TRACT: The small and large bowel are unremarkable. The appendix is unremarkable. ABDOMINAL WALL: No significant hernia is appreciated. LYMPH NODES: Normal VASCULAR: Unremarkable PELVIC VISCERA: Left ovarian cyst has decreased in size. It measures 2.1 x 3.0 cm, previously 4.2 x 5.[address] from 2020. Right ovary is unremarkable. The uterus is surgically absent. OSSEOUS STRUCTURES: Unremarkable CT/CT abdomen pelvis wo/w IV con IMPRESSION: Stable postprocedural lesion involving the lower pole of the left kidney. There is a new lesion involving superior pole the right kidney that is 13 mm in diameter that does not clearly demonstrate enhancement and probably represents a cyst containing proteinaceous debris. Left ovarian cyst has decreased in size since the prior CT 4+ years ago consistent with a benign etiology. Fleischner guidelines were followed. Electronically signed by: Michi Zepeda MD 06/05/2025 04:10 PM [facility]
[2025-06-05] MEDS: iohexoL 350 MG/ML 100 ML INFUS..BTL IV (15:42)
--- OUTSIDE RECORDS SUMMARY | 2025-06-05 20:12 | XMS_ITS | Encounter Summary ---
Author Organization [employer] Address [address] [place] [address] 7t [place] [address] Care Team Providers Care Compressor Technician Name Role Phone Tiffany Niki CORRALES Primary Care Provider [phone] Encounter Details Date Type Department Care Team (Late st Contact Info) Description 07/12/2022 Orders Only [facility] [address] [place] [address] Soraida Segundo LPN Social History Tobacco Use [...] (04/18/2023 7:37 PM EDT) Color Urine Yellow [facility] Appearance Urine Cloudy [facility] PH 6.5 5.0 - 9.0 [facility] Glucose Urine UA Negative Negative mg/dL [facility] Urine Blood Negative Negative [facility] Specific [place] - Urine 1.020 1.005 - 1.025 [facility] Urine Protein 300 (3+)(A) Neg-Trace mg/dL [facility] Urine Ketones Negative Negative mg/dL [facility] Nitrite Urine Negative Negative [facility] Leukocyte Esterase Urine Negative Negative [facility] RBC Urine 0-2 0 - 2 /HPF [facility] Urine WBC 0-5 0 - 5 /HPF [facility] Urine Squamous Epithelial Cell 11-20 0 - 2 /HPF [facility] Urine Bacteria 2+ None Seen [facility] Hyaline Casts, Urine 3-5 0 - 2 /LPF [facility] 04/18/2023 7:37 PM EDT 04/18/2023 7:40 PM EDT Narrative [facility] - 04/18/2023 7:50 PM EDT [id number], Clean Catch us [facility] External Provider LAB URI NE ORDERABLES Final Result [facility] [address] [place] [address] [phone] * Sed Rate by Modified Beverley (04/18/2023 2:12 PM EDT) Erythrocyte Sedimentation Rate 17 0 - 20 MM/HR [facility] Comment:Patients with polycy themia and many hemoglobin abnormalitiesmay have depressed sed rates whereas patients with anemiamay have elevated sed rates. 04/18/2023 2:12 PM EDT 04/18/2023 5:23 PM EDT [facility] External Provider LAB BLO OD ORDERABLES Final Result Performing Organization Address [facility]/ZIP Co de Phone Number [facility] [address] [place] [address] [phone] * TSH (04/18/2023 2:12 PM EDT) Thyroid Stimulating Hormone 0.65 0.32 - 4.0 uIU/mL [facility] Comment:TSH 3rd Generation ( [facility]) 04/18/2023 2:12 PM EDT 04/18/2023 2:16 PM EDT [facility] External Data Provider LAB BLOOD ORDERAB LES Final Result Performing Organization Address [facility]/ZIP Co de Phone Number [facility] [address] [place] [address] [phone] * (ABNORMAL) Basic Metabolic Panel (04/18/2023 2:12 PM EDT) Sodium 141 135 - 145 mmol/L [facility] Potassium 3.9 3.3 - 5.1 mmol/L [facility] Chloride 102 96 - 108 mmol/L [facility] Carbon Dioxide 28 22 - 29 mmol/L [facility] Anion Gap 15 12 - 20 [facility] Urea Nitrogen (BUN) 12 9 - 16 mg/dL [facility] Creatinine, Serum 1.23 0.5 - 1.4 mg/dL [facility] Creatinine Clr Calc Pharmacy 77.2 [facility] Comment:Provided height and weight: 165.1 cm,119.748 kg.eGFR (calculated from the MDRD study equation) and eCrCl(calculated from the Cockcroft-Gault equation) are based ondifferent parameters and may not yield comparable results.If eCrCl result is absurd, please check patient'sheight/weight. Estimated Glomerular Filt Rate 48 [facility] Comment:NOTE: For -Am erican individuals, multiply the result by 1.210.Chronic Kidney Disease: Estimated GFR < 60 mL/min/[id number] Kidney Disease: Estimated GFR < 15 mL/min/1.73m2 Glucose 144(H) 60 - 115 mg/dL [facility] Calcium 9.3 8.4 - 10.2 mg/dL [facility] 04/18/2023 2:12 PM EDT 04/18/2023 2:16 PM EDT [facility] External Data Provider LAB BLOOD ORDERAB LES Final Result Performing Organization Address [facility] Co de Phone Number [facility] [address] [place] [phone] * (ABNORMAL) Hepatic Function Panel (04/18/2023 2:12 PM EDT) Bilirubin, Total 0.4 0.0 - 1.0 mg/dL [facility] Bilirubin, Direct 0.1 0.0 - 0.5 mg/dL [facility] Aspartate Amino Transferase 20 5 - 31 U/L [facility] Alanine Aminotransferase 19 0 - 31 U/L [facility] Total Protein 8.1(H) 6.5 - 8.0 g/dL [facility] Albumin Level 3.9 3.5 - 5.0 g/dL [facility] Alkaline Phosphatase 78 39 - 117 U/L [facility] 04/18/2023 2:12 PM EDT 04/18/2023 2:16 PM EDT [facility] External Provider LAB BLO OD ORDERABLES Final Result Performing Organization Address [facility] Co de Phone Number [facility] [address] [place] [phone] * (ABNORMAL) CBC auto differential (04/18/2023 2:12 PM EDT) White Blood Count 10.5 4.8 - 10.8 X10*3/uL [facility] Red Blood Count 4.97 4.20 - 5.50 X10*6/uL [facility] Hemoglobin 13.3 12.0 - 16.0 g/dl [facility] Hematocrit 42.1 37.0 - 47.0 % [facility] Mean Corpuscular Volume 84.7 80.0 - 98.0 fL [facility] Mean Corpuscular Hemoglobin 26.8(L) 27.0 - 33.0 pg [facility] Mean Corpuscular HGB Conc 31.6 31.0 - 35.0 g/dl [facility] Red Cell Distribution Width 17.0(H) 11.0 - 16.0 % [facility] Platelet Count 298 160 - 400 X10*3/uL [facility] Mean Platelet Volume 10.9 9.4 - 12.3 [facility] Neutrophils Percent Auto 61.6 45 - 73 % [facility] Imm Gran Pct Auto 0.2 0.0 - 0.4 % [facility] Lymphocytes Percent Auto 28.1 20 - 40 % [facility] Monocytes Percent Auto 8.0 2 - 11 % [facility] Eosinophils Percent Auto 1.2 0 - 4 % [facility] Basophils Percent Auto 0.9 0 - 2 % [facility] NRBC Pct Auto 0.0 0.0 - 0.2 /100WBC [facility] Neutrophils Absolute Auto 6.4 2.0 - 8.3 x10*3/uL [facility] Imm Gran Abs Auto 0.02 0.00 - 0.03 X10*3/uL [facility] Lymphocytes Absolute Auto 2.9 1.2 - 4.9 X10*3/uL [facility] Monocytes Absolute Auto 0.8 0.1 - 1.2 X10*3/uL [facility] Eosinophils Absolute Auto 0.1 0.0 - 0.4 X10*3/uL [facility] Basophils Absolute Auto 0.1 0.0 - 0.2 X10*3/uL [facility] NRBC Abs Auto 0.000 0.0 - 0.012 X10*3/uL [facility] 04/18/2023 2:12 PM EDT 04/18/2023 2:16 PM EDT [facility] External Provider LAB BLO OD ORDERABLES Final Result Performing Organization Address [facility] de Phone Number [facility] [address] [place] [address] [phone] * (ABNORMAL) Protein Creatinine Ratio, Urine (09/09/2022 10:57 AM EDT) Creatinine, Urine 49.94 mg/dL [facility] Protein, Total, Random Urine 240(H) <12 mg/dL [facility] Protein/Creati nine Ratio, Ur 4.81(H) <0.2 [facility] Comment:The spot urine prote in:creatinine ratio may increase to 0.3during normal . 09/09/2022 10:5 7 AM EDT 09/09/2022 12:07 PM EDT [facility] External Provider LAB URI NE ORDERABLES Final Result Performing Organization Address [facility] de Phone Number [facility] [address] [place] [address] [phone] documented in this encounter Visit Diagnoses Not on filedocumented in this encounter Care Teams Compressor Technician Relationship Specialty Start Date End Date Niki Allen ANP [address] [place] [phone] PCP - General Family Medicine 07/30/20 documented as of this encounter
--- OUTSIDE RECORDS SUMMARY | 2025-06-05 20:12 | XMS_ITS | Clinical Summary ---
Author Organization [address] [place] [address] Address [address] [place] [address] Phone Care Team Providers Care Tar Heel Name Role Phone AllenNiki EVELINA Primary Care Provider [phone] Allergies Active Allergy Reactions Criticality Noted Date [...] (one) time each day in the morning. 11/09/19 24 Active cholecalcifero l (VITAMIN D-3) 50 mcg (2,000 unit) capsule Take 1 capsule (2,000 Units total) by mouth daily. 07/13/19 21 Active lisinopriL (PRINIVIL,ZEST RIL) 10 mg tablet Take 2 tablets (20 mg total) by mouth daily. 09/03/19 23 Active metFORMIN (GLUCOPHAGE) 500 mg tablet Take 1 tablet (500 mg total) by mouth 2 times daily. 03/02/20 24 Active loratadine (CLARITIN) 10 mg tablet Take 1 tablet (10 mg total) by mouth daily. 11/09/19 24 Active pantoprazole (PROTONIX) 40 mg EC tablet Take 1 tablet (40 mg total) by mouth 1 (one) time each day in the morning. 02/25/20 21 Active traZODone (DESYREL) 100 mg tablet Take 1 tablet (100 mg total) by mouth at bedtime. 05/25/20 24 Active verapamil SR (CALAN-SR) 180 mg CR tablet Take 1 tablet (180 mg total) by mouth 1 (one) time each day with breakfast. 05/21/20 24 Active spironolactone (ALDACTONE) 25 mg tablet Take 0.5 tablets (12.5 mg total) by mouth daily. Active sertraline (ZOLOFT) 100 mg tablet Take 1 tablet (100 mg total) by mouth 1 (one) time each day. 09/16/19 21 Active omeprazole OTC (PriLOSEC OTC) 20 mg EC tablet Take 1 tablet (20 mg total) by mouth 1 (one) time each day. Active nitroglycerin (NITROSTAT) 0.[address] 1 tablet (0.4 mg total) under the tongue every 5 (five) minutes if needed for chest pain. 08/16/19 23 Active nicotine polacrilex (NICORETTE) 2 mg gum Chew 1 each (2 mg total) every 1 (one) hour if needed for smoking cessation. 08/26/19 24 Active metoprolol succinate (TOPROL-XL) 100 mg 24 hr tablet Take 1.5 tablets (150 mg total) by mouth 1 (one) time each day. 07/12/19 23 Active insulin glargine (Lantus Solostar U-100 Insulin) 100 unit/mL (3 mL) injection pen Inject 10 Units under the skin at bedtime. 02/01/20 24 Active hydrOXYzine HCL (ATARAX) 50 mg tablet Take 1 tablet (50 mg total) by mouth 2 (two) times a day. Active fluticasone propionate (FLONASE) 50 mcg/actuation nasal spray Administer 1 spray into each nostril daily. 07/18/19 25 026 Active albuterol HFA (PROAIR HFA ; PROVENTIL HFA ; VENTOLIN HFA) 90 mcg/actuation inhaler Inhale 2 puffs by mouth every 4 (four) hours if needed for shortness of breath. 06/19/20 24 Active tirzepatide (Mounjaro) 5 mg/0.5 mL injection Inject 0.5 mL (5 mg total) under the skin every 7 (seven) days. 2 mL 05/10/20 25 025 Active tirzepatide (Mounjaro) 2.5 mg/0.5 mL injection Inject 0.5 mL (2.5 mg total) under the skin every 7 (seven) days. 2 mL 04/05/20 25 025 Discontinued Active Problems Problem Noted Date Diagnosed Date Acute non-recurrent sinusitis 07/18/2024 Type 2 diabetes mellitus with hyperlipidemia Overview (07/19/2024): new dx 01/2024, metformin 500mg BID, lantus 10 units with plan to increase Cigarette nicotine dependence without complicati on 08/15/2023 Mixed hyperlipidemia 08/15/2023 Hypoxia 12/08/2022 Pulmonary hypertension 12/08/2022 Overview (07/19/2024): Follows w/ [facility] [place] [place] Cards BP meds: Verapamil 180mg ER 2 [...] kidney parenchyma 01/28/2014 Overview (07/19/2024): Renal Carcinoma Encounters Date Type Department Care Team Description 04/05/2025 10:30 AM EDT Office Visit Bariatric Surgery - [address] [place] [phone] Liv Cartagena PA Class 3 severe obesity due to excess calories with serious comorbidity and body mass index (BMI) of 40.0 to 44.9 in adult ([facility] V24, [facility] V28) (Primary Dx); Type 2 diabetes mellitus with hyperlipidemia ([facility] V24, [facility] V28); Mixed hyperlipidemia; Primary [...] 10:00 AM EST Nutrition Bariatric Surgery - [address] [phone] Zuly Lozano, PRANAY [address] [place] [phone] 09/10/2025 11:00 AM EDT Office Visit Bariatric Surgery - [address] [phone] Liv Cartagena, PA [address] [place] [phone] Health Maintenance Due Date Last Done Comments [...] topic Insurance [employer] Care Teams Tar Heel Relationship Specialty Start Date End Date Niki Allen NP [address] [place] [phone] PCP - General 07/19/24
--- OUTSIDE RECORDS SUMMARY | 2025-06-05 20:12 | XMS_ITS | Clinical Summary ---
Author Organization [facility] Address [address] [place] [address] Phone Care Team Providers Care Cylinder Head Assembler Name Role Phone Tiffany Niki Perez NP Primary Care Provider [phone] Allergies Active Allergy Reactions Criticality Noted Date [...] Years Used Date Smoking Tobacco: Former Cigarettes 0 Q uit: 06/20/2013 Smokeless Tobacco: Never Tobacco [...] Vaccine (#1) 2025 Insurance Medicaid [place] Medicaid [place] Care Teams Cylinder Head Assembler Relationship Specialty Start Date End Date Niki Allen NP PCP - General Nurse Practitioner 01/13/22
--- OUTSIDE RECORDS SUMMARY | 2025-06-05 20:12 | XMS_ITS | Encounter Summary ---
Author Organization [employer] Address [address] [place] [address] 7 [place] [address] Care Team Providers Care Card Tender Name Role Phone Niki Allen Primary Care Provider [phone] Reason for Visit * Reason Comments Med Refill Encounter Details Date Type Department Care Team ([facility] st Contact Info) Description 08/16/2023 Refill [facility] MEDICINE [address] [place], [place] [phone] Niki Allen ANP [address] [place], [place] [phone] Mixed hyperlipidemia; Non-seasonal allergic rhinitis due to [...] trigger documented in this encounter Care Teams Card Tender Relationship Specialty Start Date End Date Niki Allen ANP [address] [place] [address] PCP - General Family Medicine 07/30/20 documented as of this encounter
--- OUTSIDE RECORDS SUMMARY | 2025-06-05 20:12 | XMS_ITS | Encounter Summary ---
Author Organization [employer] Address [address] [place] [address] 7t [place] [address] Care Team Providers Care Field Tax Auditor Name Role Phone Allen Niki CORRALES Primary Care Provider [phone] Encounter Details Date Type Department Care Team ([facility] st Contact Info) Description 12/13/2024 Orders Only [facility] [address] [place], [place] [phone] Brianna Barry MD [address] [place] [address] Social History Tobacco Use Types Packs/Day Years [...] documented as of this encounter Care Teams Field Tax Auditor Relationship Specialty Start Date End Date Niki Allen ANP [address] [place] [id number] PCP - General Family Medicine 07/30/20 documented as of this encounter
--- OUTSIDE RECORDS SUMMARY | 2025-06-05 20:12 | XMS_ITS | Encounter Summary ---
Author Organization [employer] Address [address] [place] [address] 7t [place] [address] Care Team Providers Care Health Sciences Program Coordinator Name Role Phone Niki Allen Primary Care Provider [phone] Encounter Details Date Type Department Care Team ([facility] st Contact Info) Description 04/17/2025 Results Follow-Up [facility] MEDICINE [address] [place], [place] [phone] Niki Allen, ANP [address] [place] [address] POCT Glucose, POCT Hgb A1c, Lipid Panel, [...] documented as of this encounter Care Teams Health Sciences Program Coordinator Relationship Specialty Start Date End Date Niki Allen ANP [address] [place] [address] PCP - General Family Medicine 07/30/20 documented as of this encounter
--- OUTSIDE RECORDS SUMMARY | 2025-06-05 20:12 | XMS_ITS | Encounter Summary ---
Author Organization [employer] Address [address] [facility] 7t [place] [address] Care Team Providers Care Deputy Assessor Name Role Phone Dial Chapo CORRALES Primary Care Provider [phone] Encounter Details Date Type Department Care Team (Late st Contact Info) Description 06/05/2025 Orders Only [facility] External Provider, [facility] Social History Tobacco Use Types Packs/Day Years [...] on file documented as of this encounter Goals Goal Patient Goal Type Associated Problems Recent Progress Patient-Stated? Author Help patients manage their type 2 diabetes Care Plan Help patients manage their type 2 diabetes No Chapo Dial ANP Weekly blood pressure task Care Plan Weekly blood pressure task No Chapo Dial ANP Help patients manage their type 2 diabetes Care Plan Help patients manage their type 2 diabetes No Chapo Dial ANP Patient has chronic kidney disease Care Plan Patient has chronic kidney disease No Chapo Dial ANP Weekly blood pressure task Care Plan Weekly blood pressure task No Chapo Dial ANP Patient has chronic kidney disease Care Plan Patient has chronic kidney disease No Chapo Dial ANP documented as of this encounter Procedures Procedure Name Priority Date/Time Associated Diagnosis Comments CT ABDOMEN PELVIS W AND WO CONTRAST Routine 06/05/2025 3:23 PM EST documented in this encounter Results * CT Abdomen Pelvis w/ and w/o Contrast (06/05/2025 3:23 PM EST) Anatomical Region Laterality Modality Body, Pelvis, Abdomen Computed T omography 06/05/2025 3:23 PM EST Narrative 06/05/2025 4:12 PM EST [address] [address] [address] Scan Report Signed Patient: Caitlyn Hercules V MR#: [id number] : 1980 Acct:[id number] Age/Sex: 44 / F ADM Date: 06/05/25 Loc: HO.CT Attending Dr: Sylvia Juarez MD Ordering Physician: Sylvia Juarez MD Date of Service: 06/05/25 Procedure(s): CT abdomen pelvis wo/w IV con Accession Number(s): [id number] cc: Sylvia Juarez MD; CHAPO DIAL NP Report Number: [id number]: Total DLP = 1574.00 mGy-cm Reason for Exam: Z85.528 - Personal history of other malignant neoplasm of kidney EXAMINATION: CT ABDOMEN AND PELVIS WITHOUT AND WITH CONTRAST CLINICAL INFORMATION: Z85.528 - Personal history of other malignant neoplasm of kidney COMPARISON: 07/29/2020 CT and August 15, 2023 MRI TECHNIQUE: Multidetector volumetric imaging was performed of the abdomen and pelvis before and after the IV administration of 85 mL of Omnipaque 300 intravenous contrast. Sagittal and coronal reformatted images were obtained on the technologist's workstation. This CT examination was performed using dose optimization techniques as appropriate, variously including the following: *Automated exposure control *Adjustment of mA and/or kV according to patient size (this includes techniques or standardized protocols for targeted exams where dose is matched to indication/reason for exam; i.e. extremities or head) *Use of iterative reconstruction technique FINDINGS: LUNG BASES: The visualized lung bases are unremarkable. LIVER, GALLBLADDER, AND BILIARY TREE: The liver is normal in size, shape, and attenuation. No focal hepatic lesion or biliary ductal dilatation is present. The gallbladder is unremarkable with no evidence of radiopaque gallstones, gallbladder wall thickening, or obvious pericholecystic inflammatory changes. PANCREAS: Unremarkable SPLEEN: Unremarkable ADRENAL GLANDS: Unremarkable KIDNEYS AND URETERS: Again seen is an exophytic lesion extending laterally from the lower pole left kidney measuring 3.3 x 2.4 x 2.4 cm, previously measuring 3.7 x 2.4 x 2.4 cm (CC by AP by transverse). Without contrast it measured 20 Hounsfield units, after contrast measured 24 Hounsfield units with standard deviation of 20 Hounsfield units consistent with no significant change before and after contrast. There is a new lesion involving the posterior superior pole the right kidney that is 13 mm diameter. It measured 22-23 Hounsfield units before contrast and 25-27 Hounsfield units after. No other new lesions are identified. There is no hydronephrosis or nephrolithiasis. BLADDER: Unremarkable GASTROINTESTINAL TRACT: The small and large bowel are unremarkable. The appendix is unremarkable. ABDOMINAL WALL: No significant hernia is appreciated. LYMPH NODES: Normal VASCULAR: Unremarkable PELVIC VISCERA: Left ovarian cyst has decreased in size. It measures 2.1 x 3.0 cm, previously 4.2 x 5.[address] from 2020. Right ovary is unremarkable. The uterus is surgically absent. OSSEOUS STRUCTURES: Unremarkable CT/CT abdomen pelvis wo/w IV con IMPRESSION: Stable postprocedural lesion involving the lower pole of the left kidney. There is a new lesion involving superior pole the right kidney that is 13 mm in diameter that does not clearly demonstrate enhancement and probably represents a cyst containing proteinaceous debris. Left ovarian cyst has decreased in size since the prior CT 4+ years ago consistent with a benign etiology. Fleischner guidelines were followed. Electronically signed by: Michi Zepeda MD 06/05/2025 04:10 PM [facility] Dictated By: Michi Zepeda MD Signed By: <Electronically signed by Michi Zepeda MD in OV> 06/05/25 1610 DD/ 1523 TD/TT: 06/05/25 1543 Hydraulic Auto Jack Mechanic: Procedure Note Donotuseinterpreter, Image - 06/05/[address] [place] [address] [address] Scan Report Signed Patient: Caitlyn Hercules VMR#: [id number] : 1980Acct:[id number] Age/Sex: 44 / FADM Date: 06/05/25 Loc: HO.CT Attending Dr: Sylvia Juarez MD Ordering Physician: Sylvia Juarez MD Date of Service: 06/05/25 Procedure(s): CT abdomen pelvis wo/w IV con Accession Number(s): [id number] cc: Sylvia Juarez MD; CHAPO DIAL NP Report Number: [id number]: Total DLP = 1574.00 mGy-cm Reason for Exam: Z85.528 - Personal history of other malignant neoplasm ofkidney EXAMINATION: CT ABDOMEN AND PELVIS WITHOUT AND WITH CONTRAST CLINICAL INFORMATION: Z85.528 - Personal history of other malignant neoplasm of kidney COMPARISON: 07/29/2020 CT and August 15, 2023 MRI TECHNIQUE: Multidetector volumetric imaging was performed of the abdomen and pelvis before and after the IV administration of 85 mL of Omnipaque 300 intravenous contrast. Sagittal and coronal reformatted images were obtained on the technologist's workstation. This CT examination was performed using dose optimization techniques as appropriate, variously including the following: *Automated exposure control *Adjustment of mA and/or kV according to patient size (this includes techniques or standardized protocols for targeted exams where dose is matched to indication/reason for exam; i.e. extremities or head) *Use of iterative reconstruction technique FINDINGS: LUNG BASES: The visualized lung bases are unremarkable. LIVER, GALLBLADDER, AND BILIARY TREE: The liver is normal in size, shape, and attenuation. No focal hepatic lesion or biliary ductal dilatation is present. The gallbladder is unremarkable with no evidence of radiopaque gallstones, gallbladder wall thickening, or obvious pericholecystic inflammatory changes. PANCREAS: Unremarkable SPLEEN: Unremarkable ADRENAL GLANDS: Unremarkable KIDNEYS AND URETERS: Again seen is an exophytic lesion extending laterally from the lower pole left kidney measuring 3.3 x 2.4 x 2.4 cm, previously measuring 3.7 x 2.4 x 2.4 cm (CC by AP by transverse). Without contrast it measured 20 Hounsfield units, after contrast measured 24 Hounsfield units with standard deviation of 20 Hounsfield units consistent with no significant change before and after contrast. There is a new lesion involving the posterior superior pole the right kidney that is 13 mm diameter. It measured 22-23 Hounsfield units before contrast and 25-27 Hounsfield units after. No other new lesions are identified. There is no hydronephrosis or nephrolithiasis. BLADDER: Unremarkable GASTROINTESTINAL TRACT: The small and large bowel are unremarkable. The appendix is unremarkable. ABDOMINAL WALL: No significant hernia is appreciated. LYMPH NODES: Normal VASCULAR: Unremarkable PELVIC VISCERA: Left ovarian cyst has decreased in size. It measures 2.1 x 3.0 cm, previously 4.2 x 5.[address] from 2020. Right ovary is unremarkable. The uterus is surgically absent. OSSEOUS STRUCTURES: Unremarkable CT/CT abdomen pelvis wo/w IV con IMPRESSION: Stable postprocedural lesion involving the lower pole of the left kidney. There is a new lesion involving superior pole the right kidney that is 13 mm in diameter that does not clearly demonstrate enhancement and probably represents a cyst containing proteinaceous debris. Left ovarian cyst has decreased in size since the prior CT 4+ years ago consistent with a benign etiology. Fleischner guidelines were followed. Electronically signed by: Michi Zepeda MD 06/05/2025 04:10 PM EST RP Dictated By: Michi Zepeda MD Signed By: <Electronically signed by Michi Zepeda MD in OV> 06/05/25 1610 DD/ 1523 TD/TT: 06/05/25 1543 Hydraulic Auto Jack Mechanic: [facility] External Provider IMG CT PROCEDURES Final Result documented in this encounter Visit Diagnoses Not on filedocumented in this encounter Additional Health Concerns Active Problems Noted Date Diagnosed Date Help patients manage their type 2 diabetes 05/19 Weekly blood pressure task 05/19/2025 Help patients manage their type 2 diabetes 05/19 Patient has chronic kidney disease 05/19/2025 Weekly blood pressure task 05/19/2025 Patient has chronic kidney disease 05/19/2025 Assessment Noted Time PHQ-9 Depression Total Score: 6 03/08/20 25 3:20 PM EDT documented as of this encounter Care Teams Deputy Assessor Relationship Specialty Start Date End Date Chapo Dial ANP [address] [place] [id number] PCP - General Family Medicine 07/30/20 documented as of this encounter
--- OUTSIDE RECORDS SUMMARY | 2025-06-05 20:12 | XMS_ITS | Encounter Summary ---
Author Organization [employer] Address [address] [place] [address] 7 [place] [address] Care Team Providers Care Circular Shear Operator Name Role Phone iNki Allen Primary Care Provider [phone] Reason for Visit * Reason Comments Med Refill Encounter Details Date Type Department Care Team ([facility] st Contact Info) Description 04/03/2025 Refill [facility] MEDICINE [address] [place], [place] [phone] Niki Allen ANP [address] [place], [place] [phone] Insomnia, unspecified type Social History Tobacco Use [...] documented as of this encounter Care Teams Circular Shear Operator Relationship Specialty Start Date End Date Niki Allen ANP [address] [place] [address] PCP - General Family Medicine 07/30/20 documented as of this encounter
--- OUTSIDE RECORDS SUMMARY | 2025-06-05 20:12 | XMS_ITS | Encounter Summary ---
Author Organization [employer] Address [address] [place] [address] 7 [place] [address] Care Team Providers Care Conditioning Yard Supervisor Name Role Phone Niki Allen Primary Care Provider [phone] Reason for Visit * Reason Comments Med Refill Encounter Details Date Type Department Care Team ([facility] st Contact Info) Description 03/19/2025 Refill [facility] MEDICINE [address] [place], [place] [phone] Niki Allen ANP [address] [place], [place] [phone] Insomnia, unspecified type Social History Tobacco Use [...] documented as of this encounter Care Teams Conditioning Yard Supervisor Relationship Specialty Start Date End Date Niki Allen ANP [address] [place] [address] PCP - General Family Medicine 07/30/20 documented as of this encounter
--- OUTSIDE RECORDS SUMMARY | 2025-06-05 20:12 | XMS_ITS | Encounter Summary ---
Author Organization [employer] Address [address] [place] [address] 7 [place] [address] Care Team Providers Care Jacquard Loom Weaver Name Role Phone Niki Allen Primary Care Provider [phone] Reason for Visit * Reason Onset Date Comments Call Back Request 04/18/2023 Encounter Details Date Type Department Care Team ([facility] st Contact Info) Description 04/18/2023 Telephone [facility] MEDICINE [address] [place], [place] [phone] Niki Allen ANP [address] [place] [address] Call Back Request Social History Tobacco Use [...] notes were fax over same day 04/17/2023, Civil Manager transferred over to HIM to verify if notes were received. Please contact Yamila at [phone] documented in this encounter Plan of Treatment Not on file documented as of this encounter Visit Diagnoses Not on filedocumented in this encounter Care Teams Jacquard Loom Weaver Relationship Specialty Start Date End Date Niki Allen ANP [address] [place] [address] PCP - General Family Medicine 07/30/20 documented as of this encounter
--- OUTSIDE RECORDS SUMMARY | 2025-06-05 20:12 | XMS_ITS | Clinical Summary ---
Author Organization [employer] Address [address] [place] [address] [address] [place] [address] Care Team Providers Care Service Worker Helper Name Role Phone Tiffany Chapo CORRALES Primary Care Provider [phone] Allergies Active Allergy Reactions Criticality Noted Date [...] 1,000 mg by mouth. 07/29/19 16 Active hydrOXYzine pamoate (Vistaril) 50 MG capsule [...] DAYS 30 g 1 08/26/19 24 Active pen needle 32G x 4 mm misc Use to inject Lantus once per day 100 each 12 02/01/20 24 Active pantoprazole (ProtoNix) 40 MG EC tabletIndications :Heartburn TAKE 1 TABLET BY MOUTH EVERY DAY IN THE MORNING 90 tablet 1 05/21/20 24 Active albuterol (Ventolin HFA) 108 (90 Base) MCG/ACT inhalerIndication s:Mild persistent asthma with acute exacerbation Inhale 2 puffs Every 4-6 hours as needed for wheezing or shortness of breath. 18 g 3 5 2:48 PM EST 06/19/20 24 Active Spacer/Aero-Holdi ng Chambers (OptiChamber Trish) misc 1 each every 4 (four) hours if needed (asthma). 1 each 06/19/20 24 Active FREESTYLE LITE test stripIndications: Type 2 diabetes mellitus with hyperlipidemia (HCC) Use to test blood sugar 3 times daily 100 each 12 5 3:53 PM EST 08/03/19 25 026 Active Lancets miscIndications:T ype 2 diabetes mellitus with hyperlipidemia (HCC) Use to test blood sugar 3 times daily 100 each 11 5 3:53 PM EST 08/03/19 25 Active Alcohol Swabs 70 % padsIndications:T ype 2 diabetes mellitus with hyperlipidemia (HCC) Use to test blood sugar 3 times daily 100 each 11 5 3:53 PM EST 08/03/19 25 Active Blood Glucose Monitoring Suppl (FreeStyle [place] Lite) w/Device kitIndications:Ty pe 2 diabetes mellitus with hyperlipidemia (HCC) Use to test blood sugar 3 times daily 1 kit 08/03/19 25 Active loratadine (Claritin) 10 MG tabletIndications :Non-seasonal allergic rhinitis due to other allergic trigger,Acute non-recurrent sinusitis, unspecified location Take 1 tablet (10 mg) by mouth Once per day. As needed 90 tablet 5 12:01 PM EST 08/03/19 25 Active EPINEPHrine (Epipen) 0.3 MG/0.3ML injection syringeIndication s:Food allergy INJECT INTRAMUSCULARLY DIRECTED ON PACKAGE AND GO TO EMERGENCY ROOM NEEDED FOR ANAPHYLAXIS, CALL 911 AFTER USE 2 each 1 09/12/19 25 Active fluticasone (Flonase) 50 MCG/ACT nasal sprayIndications: Acute non-recurrent sinusitis, unspecified location INSTILL 1 SPRAY IN EACH NOSTRIL ONCE DAILY 16 g 2 11/20/19 25 Active verapamil SR (Calan SR) 180 MG ER tabletIndications :Essential hypertension TAKE 2 TABLETS BY MOUTH EVERY DAY WITH FOOD 180 tablet 1 11/27/19 25 Active rosuvastatin (Crestor) 5 MG tabletIndications :Mixed hyperlipidemia TAKE 1 TABLET BY MOUTH EVERY DAY AT BEDTIME 30 tablet 5 5 12:01 PM EST 01/18/20 25 Active metFORMIN (Glucophage) 500 MG tabletIndications :Type 2 diabetes mellitus with hyperlipidemia (HCC) TAKE 1 TABLET BY MOUTH TWICE A DAY 180 tablet 1 03/08/20 25 Active hydrALAZINE (Apresoline) 50 MG tabletIndications :Benign essential hypertension Take 1 tablet (50 mg) by mouth 2 times daily. 180 tablet 1 03/08/20 25 Active lisinopril 10 MG tabletIndications :Benign essential hypertension Take 2 tablets (20 mg) by mouth Once per day. 180 tablet 03/08/20 25 Active budesonide-formot arian (Symbicort) 80-4.5 MCG/ACT inhalerIndication s:Mild persistent asthma without complication Take 2 puffs as needed every 4-6 hours for SOB. Rinse mouth with water after use to reduce aftertaste and incidence of candidiasis. Do not swallow. 1 each 1 03/08/20 25 Active Blood Pressure kitIndications:Be nign essential hypertension,Pulm onary hypertension (CMS/HCC) (HCC) 1 kit Once per day. 1 kit 03/11/20 25 Active traZODone (Desyrel) 100 MG tabletIndications :Insomnia, unspecified type TAKE 2 TABLETS BY MOUTH AT BEDTIME NEEDED FOR SLEEP 180 tablet 1 04/09/20 25 Active Active Problems Problem Noted Date Diagnosed Date Status post total hysterectomy 01/21/2025 History of endometrial cancer 08/03/2024 Overview (08/03/2024): s/p total hysterectomy 2013 Acute non-recurrent sinusitis 07/18/2024 Assessment & Plan (07/18/2024 11:20 AM EST): -discontinue OTC nasal spray -Augmentin x 10 days -continue fluticasone nasal spray -start loratadine -iroquois on environmental triggers changes -advise may take [...] Plan: BG monitor to be purchased at [facility] (better cost d/t lack of current [...] Encounters Date Type Department Care Team Description 06/05/2025 Orders Only [facility] External Provider, [facility] 04/19/[address] [address] Chapo Dial ANP June recall 04/17/2025 Results Follow-Up [address] [address] Chapo Dial ANP POCT Glucose, POCT Hgb A1c, Lipid Panel, Standard, Additional followed-up results: 2 04/11/2025 11:15 AM EDT Office Visit [address] [address] Chapo Dial ANP Type 2 diabetes mellitus with hyperlipidemia (HCC) (Primary Dx); ENRIKE (acute kidney injury); Encounter for immunization; IgA nephropathy 04/11/2025 Travel 04/09/2025 Telephone [facility] [place] [phone] Chapo Dial ANP chart prep 04/08/2025 11:00 AM EDT Telemedicine [facility] [place] [phone] Kassidy Armando RN Pulmonary hypertension (CMS/HCC) ([facility]) 04/08/2025 Refill [facility] [place] [phone] Chapo Dial ANP Insomnia, unspecified type 04/08/2025 Travel 04/03/2025 Refill [facility] [place] [address] Chapo Dial ANP Insomnia, unspecified type 03/19/2025 Refill [facility] [place] [address] Chapo Dial ANP Insomnia, unspecified type 03/18/2025 Results Follow-Up [facility] [place] [phone] Chapo Dial ANP Electrolyte Panel, BUN (Blood Urea Nitrogen), Creatinine, Serum, Protein Creatinine Ratio, Urine 03/15/2025 11:30 AM EDT Telemedicine [facility] [place] [address] Shabana Lyle RN Benign essential hypertension 03/15/2025 Travel 03/13/2025 Orders Only GENERIC EXTERNAL DATA DEPARTMENT Provider, Generic External Data 03/08/2025 1:45 PM EDT Office Visit [facility] [place] [phone] Chapo Dial ANP Healthcare maintenance (Primary Dx); Type 2 diabetes mellitus with hyperlipidemia (CMS/HCC) (CMS/HCC); Benign essential hypertension; Pulmonary hypertension (CMS/HCC); Mild persistent asthma without complication; Insomnia, unspecified type; Class 3 severe obesity with serious comorbidity and body mass index (BMI) of 40.0 to 44.9 in adult; Cigarette nicotine dependence without complication; IgA nephropathy; Asymptomatic hypertensive urgency 03/08/2025 Travel 03/08/2025 Refill [facility] [place] [phone] Chapo Dial ANP Type 2 diabetes mellitus with hyperlipidemia ([facility]) ([facility]) 03/07/2025 Telephone [facility] [address] [place] [phone] Chapo Dial ANP chart prep from Last 3 Months Immunizations Immunization Administration [...] on patient's age to complete this topic Goals Goal Patient Goal Type Associated Problems [...] chronic kidney disease No Chapo Dial ANP Procedures Procedure Name Priority Date/Time Associated Diagnosis Comments CT ABDOMEN PELVIS W AND WO CONTRAST Routine 06/05/2025 3:23 PM EST COMPREHENSIVE METABOLIC PANEL Routine 04/17/2025 12:02 PM [...] Recently Relevant to Health Maintenance Results * CT Abdomen Pelvis w/ and w/o Contrast (06/05/2025 3:23 PM EST) Anatomical Region Laterality Modality Body, Pelvis, Abdomen Computed T omography 06/05/2025 3:23 PM EST Narrative 06/05/2025 4:12 PM EST [place] [address] CT Scan Report Signed Patient: Caitlyn Hercules V MR#: [id number] : 1980 Acct:[id number] Age/Sex: 44 / F ADM Date: 06/05/25 Loc: HO.CT Attending Dr: Sylvia Juarez MD Ordering Physician: Sylvia Juarez MD Date of Service: 06/05/25 Procedure(s): CT abdomen pelvis wo/w IV con Accession Number(s): [id number] cc: Sylvia Juarez MD; CHAPO DIAL NP Report Number: [id number]: Total DLP = 1574.00 mGy-cm Reason for [...] by: Michi Zepeda MD 06/05/2025 04:10 PM [facility] Dictated By: Michi Zepeda MD Signed By: <Electronically signed by Michi Zepeda MD in OV> 06/05/25 1610 DD/ 1523 TD/TT: 06/05/25 1543 Marine Service Manager: Procedure Note Donotuseinterpreter, Image - 06/05/[address] [place] [address] [address] Scan Report Signed Patient: Caitlyn Hercules R#: [id number] : 1980Acct:[id number] Age/Sex: 44 / FADM Date: 06/05/25 Loc: HO.CT Attending Dr: Sylvia Juarez MD Ordering Physician: Sylvia Juarez MD Date of Service: 06/05/25 Procedure(s): CT abdomen pelvis wo/w IV con Accession Number(s): [id number] cc: Sylvia Juarez MD; CHAPO DIAL NP Report Number: [id number]: Total DLP = 1574.00 mGy-cm Reason for [...] by: Michi Zepeda MD 06/05/2025 04:10 PM [facility] Dictated By: Michi Zepeda MD Signed By: <Electronically signed by Michi Zepeda MD in OV> 06/05/25 1610 DD/ 1523 TD/TT: 06/05/25 1543 Marine Service Manager: [facility] External Provider IMG CT PROCEDURES Final Result * (ABNORMAL) Albumin, Random Urine W/Creatinine (04/17/2025 12:02 PM EDT) Creatinine, Urine 257.32 mg/dL [facility] Microalbumin Urine 879.0 mg/L [facility] Microalbum Creatinine Ratio Ur 341.5(H) <30 ug/mg cr [facility] Comment:Albumin/Creatinine R atio Reference Ranges: Normal: < 30 ug/mg creatinine Microalbuminuria: 30 - 300 ug/mg creatinineClinical Albuminuria: > 300 ug/mg creatinine Urine (Urine, Random) 04/17/2025 12:02 PM EDT 04/17/2025 1:00 PM EDT Chapo Dial [facility] URINE ORDERABLES Final Resul t [facility] [address] [place] [phone] * (ABNORMAL) Lipid Panel, Standard (04/17/2025 12:02 PM EDT) Triglycerides 169(H) <150 mg/dL [facility] Comment:Desirable Triglyceri de: less than 150 mg/dLBorderline High Triglyceride 150-199 mg/dLHigh Triglyceride: 200-499 mg/dLVery High Triglyceride: greater than or equal to 5OO mg/dL Cholesterol 122 <200 mg/dL [facility] Comment:Desirable Cholestero l: less than 200 mg/dLBorderline High Cholesterol: 200-239 mg/dLHigh Cholesterol: greater than 239 mg/dL LDL Cholesterol Calculated 46 <100 mg/dL [facility] Comment:Desirable LDL: less than 100 mg/dLNear Optimal/Above Optimal LDL: 110- 129 mg/dLBorderline High LDL: 130-159 mg/dLHigh LDL: 160-189 mg/dLVery High LDL: greater than or equal to 190 mg/dL HDL Cholesterol 43 >40 mg/dL [facility] Comment:Desirable HDL: great er than 40 mg/dL Note: This HDL assay may give artificially low results in patients with liver disease. Blood Venous blood specimen / Unknown 04/17/2025 12:02 PM EDT 04/17/2025 3:57 PM EDT Chapo Dial [facility] BLOOD ORDERABLES Final Resul t [facility] [address] [place] [phone] * (ABNORMAL) Comprehensive Metabolic Panel (04/17/2025 12:02 PM EDT) Sodium 138 135 - 145 mmol/L [facility] Potassium 3.8 3.3 - 5.1 mmol/L [facility] Chloride 108 96 - 108 mmol/L [facility] Carbon Dioxide 25 22 - 29 mmol/L [facility] Anion Gap 9(L) 12 - 20 [facility] Urea Nitrogen (BUN) 14 9 - 16 mg/dL [facility] Creatinine, Serum 1.23 0.5 - 1.4 mg/dL [facility] Estimated Glomerular Filt Rate 47 [facility] Comment:Chronic Kidney Disea se: Estimated GFR < 60 mL/min/1.58z2Nrwsml Kidney Disease: Estimated GFR < 15 mL/min/1.73m2 Glucose 148(H) 60 - 115 mg/dL [facility] Calcium 8.6 8.4 - 10.2 mg/dL [facility] Bilirubin, Total 0.2 0.0 - 1.0 mg/dL [facility] Aspartate Amino Transferase 18 5 - 31 U/L [facility] Alanine Aminotransferase 12 0 - 31 U/L [facility] Total Protein 7.3 6.5 - 8.0 g/dL [facility] Albumin Level 3.7 3.5 - 5.0 g/dL [facility] Alkaline Phosphatase 68 39 - 117 U/L [facility] Blood Venous blood specimen / Unknown 04/17/2025 12:02 PM EDT 04/17/2025 3:57 PM EDT us Chapo [facility] LAB BLOOD ORDERABLES Final Resul t Performing Organization Address [facility] Co de Phone Number [facility] [address] [place] [phone] * (ABNORMAL) Creatinine, Serum (03/13/2025 1:26 PM EDT) Creatinine, Serum 1.46(H) 0.5 - 1.4 mg/dL [facility] Estimated Glomerular Filt Rate 39 [facility] Comment:Chronic Kidney Disea se: Estimated GFR < 60 mL/min/1.39w4Chylty Kidney Disease: Estimated GFR < 15 mL/min/1.73m2 03/13/2025 1:26 PM EDT 03/13/2025 1:26 PM EDT Generic External Data Provider LAB BLOOD ORDERAB LES Final Result Performing Organization Address [facility] Co de Phone Number [facility] [address] [place] [phone] * BUN (Blood Urea Nitrogen) (03/13/2025 1:26 PM EDT) Urea Nitrogen (BUN) 16 9 - 16 mg/dL [facility] 03/13/2025 1:26 PM EDT 03/13/2025 1:26 PM EDT Generic External Data Provider LAB BLOOD ORDERAB LES Final Result Performing Organization Address [facility] de Phone Number [facility] [address] [place] [phone] * (ABNORMAL) Electrolyte Panel (03/13/2025 1:26 PM EDT) Pathologist [facility] Sodium 139 135 - 145 mmol/L [facility] Potassium 3.9 3.3 - 5.1 mmol/L [facility] Chloride 105 96 - 108 mmol/L [facility] Carbon Dioxide 28 22 - 29 mmol/L [facility] Anion Gap 10(L) 12 - 20 [facility] 03/13/2025 1:26 PM EDT 03/13/2025 1:26 PM EDT Generic External Data Provider LAB BLOOD ORDERAB LES Final Result Performing Organization Address [facility] Phone Number [facility] [address] [place] [phone] * (ABNORMAL) Protein Creatinine Ratio, Urine (03/13/2025 1:21 PM EDT) Pathologist [facility] Creatinine, Urine 333.07 mg/dL [facility] Protein, Total, Random Urine 360(H) <12 mg/dL [facility] Protein/Creati nine Ratio, Ur 1.08(H) <0.2 [facility] Comment:The spot urine prote in:creatinine ratio may increase to 0.3during normal . 03/13/2025 1:21 PM EDT 03/13/2025 2:18 PM EDT Generic External Data Provider LAB URINE ORDERAB LES Final Result Performing Organization Address [facility] Co de Phone Number [facility] [address] [place] [phone] * (ABNORMAL) POCT Hgb A1c (03/08/2025 1:51 PM EDT) Hemoglobin A1C 6.4(A) 4.0 - 5.7 % QC Media Lot # [id number] Lot# Expiration Date , Blood 03/08/2025 1:51 PM EDT us Chapo [...] EST Narrative 07/01/2024 10:13 AM EST [facility] [address] [place], [place] [address] Mammography Report Signed Patient: Caitlyn Hercules V MR#: [id number] : 1980 Acct:[id number] Age/Sex: 44 / F ADM Date: 06/22/24 Loc: HOKareenMAMMO Attending Dr: Chapo Dial NP Ordering Physician: CHAPO DIAL NP Results: 2Benign Jerson ricardo Date of Service: 06/22/24 Follow Up: 1 Year From Orig ina Mammogram Procedure(s): MM tomosynthesis screening BI Accession Number(s): [id number] cc: CHAPO DIAL NP EXAMINATION: MM SCREENING [...] 07/01/24 1010 DD/ 1430 TD/TT: 06/22/24 1457 Marine Service Manager: Procedure Note Donotuseinterpreter, Image - 07/01/2024 [facility] [address] [place], [place] [address] Mammography Report Signed Patient: Caitlyn Hercules VMR#: [id number] : 1980Acct:[id number] Age/Sex: 44 / FADM Date: 06/22/24 Loc: HO.MAMMO Attending Dr: Chapo Dial NP Ordering Physician: CHAPO DIAL NPResults: 2Benign Jerson ricardo Date of Service: 06/22/24Follow Up: 1 Year From Orig inal Mammogram Procedure(s): MM tomosynthesis screening BI Accession Number(s): [id number] cc: CHAPO DIAL NP EXAMINATION: MM SCREENING [...] 07/01/24 1010 DD/ 1430 TD/TT: 06/22/24 1457 Marine Service Manager: Chapo CORRALES IMAron BI PROCEDURES Final Result * Hm Pap Smear (11/18/2015) Pap Negative for intraephithelial lesion or malignancy Negative for intraephithelial lesion or malignancy, Other HPV Undetected 11/18/2015 Historical Provider HEALTH MAINTENANCE Final Result from Last 3 Months or Most Recently Relevant to Health Maintenance Additional Health Concerns Active Problems Noted Date Diagnosed Date Help patients manage their type 2 diabetes 05/19 Weekly blood pressure task 05/19/2025 Help patients manage their type 2 diabetes 05/19 Patient has chronic kidney disease 05/19/2025 Weekly blood pressure task 05/19/2025 Patient has chronic kidney disease 05/19/2025 Insurance HSN PARTIAL Care Teams Service Worker Helper Relationship Specialty Start Date End Date Chapo Dail ANP [address] [place] [phone] PCP - General Family Medicine 07/30/20
== END 2025-06-05 15:11 | disposition home or self-care (01) ==
LOC: HO.CT 15:10
PROVIDERS: PCP Nurse Practitioner Primary Care; Visit Provider Urology
DX: N12 Tubulo-interstitial nephritis, not specified as acute or chronic (principal); R80.8 Other proteinuria; Z85.528 Personal history of other malignant neoplasm of kidney
CPT/HCPCS: 74178; Q9967

== ENCOUNTER → 2025-06-05 15:13 | Outpatient (BNV) | payer OTHER, SELFPAY | PROVIDERS: PCP Nurse Practitioner Primary Care; Visit Provider Radiology Diagnostic Radiology | DX: N28.9 Disorder of kidney and ureter, unspecified (principal); N83.202 Unspecified ovarian cyst, left side | CPT/HCPCS: 74178 ==